=== PATIENT | female | born 1950 | race Caucasian/White ===

== ENCOUNTER → 2018-04-06 | Outpatient (CLI) | payer OTHER ==
[~2018-04-06] MED LIST: REGADENOSON 0.4 MG/5 ML SYR ONE
--- NOTE | 2018-04-06 18:15 | MYOCARDIAL PERFUSION SCAN ---
[facility] NUCLEAR STRESS TEST INDICATION FOR STUDY: Abnormal EKG. PROVIDER REQUESTING STUDY: Dr. Jonathon Walters. TECHNIQUE: For the stress portion of the study, 29.5 mCi of Technetium 99 m Cardiolite IV was injected at 12:17 pm on 04/06/2018. Thirty minutes following the injection, imaging of the heart was performed in multiple projections. For the rest portion of the study, 10.2 mCi of Technetium 99 m Cardiolite was injected at 09:50 am. One hour following the injection, imaging of the heart was performed in the same projections. HEMODYNAMIC DATA: The patient received 0.4 mg of Lexiscan intravenously. The resting heart rate of 59 beats per minute debra to a maximum heart rate of 78 beats per minute. This value represents 50% of the maximal age predicted heart rate. The resting blood pressure of 125/58 debra to a maximum blood pressure of 126/58. Of note, on the EKG report, there is a blood pressure of 50/58 that was recorded. This is actually a typing error. This was actually 105/58 mmHg. The heart rate and blood pressure response to pharmacologic stress was appropriate. The patient denied chest discomfort with administration of Lexiscan. Transient headache and GI upset was noted which resolved early in the post-pharmacologic stress recovery interval. EKG FINDINGS: The baseline EKG revealed sinus rhythm at 67 beats per minute. An age-determined septal infarction pattern cannot be excluded based on poor R-wave progression in lead V2. Diffuse nonspecific T-wave flattening was noted on the resting EKG. The stress EKG response was negative for inducible ischemia with no new ST segment changes. Occasional PVCs were noted with pharmacologic stress. The patient had no complaints in terms of the PVCs. Perfusion images: Stress SPECT images revealed a large perfusion defect encompassing the inferior and inferolateral myocardial nieto. The perfusion defect is severe at the apical level and moderate at the mid to basal levels. Resting SPECT images are unchanged with fixed perfusion defect encompassing the inferior and inferolateral nieto. Gated SPECT images reveal inferior and inferolateral hypokinesis with mildly reduced calculated left ventricular ejection fraction of 47% by gated SPECT. FINAL IMPRESSION: Abnormal pharmacologic nuclear stress testing revealing a fixed inferior, inferolateral perfusion defect consistent with infarction in this territory without superimposed ischemia. The inferior and inferolateral nieto were mildly hypokinetic with a mildly reduced left ventricular ejection fraction by gated SPECT of 47%. MTDD
== END | disposition home or self-care (01) ==
LOC: C.NUCL 08:57
PROVIDERS: ATTEND Internal Medicine Cardiovascular Disease
DX: R06.02 Shortness of breath (principal); I25.10 Atherosclerotic heart disease of native coronary artery without angina pectoris

== ENCOUNTER 2019-04-05 15:09 | Inpatient (IN) ==
--- NOTE | 2019-04-05 16:03 | XRay Report ---
XR chest 1V portable CLINICAL HISTORY: 68 years-old Female presenting with r/o infection. TECHNIQUE: Portable upright AP view of the chest was obtained. COMPARISON: None. FINDINGS: Atherosclerosis of the aortic arch. Cardiac silhouette enlarged. Pulmonary vascular prominence. Bronc hial wall cuffing. No focal opacity. Trace left pleural effusion. No pneumothorax. Scoliotic curvatur e of the spine. Degenerative changes of the glenohumeral joints. Upper abdomen normal. IMPRESSION: 1. Cardiac megaly with volume overload and congestive change. No stephani pulmonary edema at this time. 2. Trace left pleural effusion suspected. Electronically signed by: Mina Jackson M.D. 04/05/2019 4:02 PM
[2019-04-05 16:20] LABS: Basophils # (auto) 0.02 K/uL (0-0.2); Basophils % (auto) 0.3 %; Hematocrit (blood only) 35.5 % (37-47); Hemoglobin 10.8 g/dL (12.0-16.0); Immature Granulocytes # (auto) 0.01 K/uL (0.00-0.02); Immature Granulocytes % (auto) 0.2 %; Lymphocytes # (auto) 0.57 K/uL (1.2-3.4); Lymphocytes % (auto) 9.7 %; Mean Corpuscular Hgb Conc 30.4 g/dL (32-36); Mean Corpuscular Volume 76.7 fL (80-100); Mean Platelet Volume 9.2 fL (7.4-10.4); Monocytes # (auto) 0.33 K/uL (0.11-0.59); Monocytes % (auto) 5.6 %; Neutrophils # (auto) 4.93 K/uL (1.4-6.5); Neutrophils % (auto) 84.2 %; Platelet Count 261 K/uL (130-400); RDW Coefficient of Variation 20.2 % (11.5-14.5); RDW Standard Deviation 55.6 fL (36.4-46.3); Red Blood Count 4.63 M/uL (4.2-5.4); White Blood Count 5.86 K/uL (4.8-10.8)
--- NOTE | 2019-04-05 16:28 | Emergency Department Note ---
Entered by Renetta Escalera acting as a scribe for Jono Mosley MD History of Present Illness General Chief complaint: Illness Stated complaint: RETAINING FLUID Time Seen by Provider: 04/05/19 15:18 Source: patient History of Present Illness Provider complaint: 20 pound weight gain Onset (ago): week(s) 1 Location: abdomen, lower extremity and right Quality: + other (weight gain) Associated symptoms: + chest pain and + loss of appetite; no fever/chills and no shortness of breath The patient is a 68 year old female who presents to the Emergency Department with complaints of a 20 pound weight gain in the last week. The patient states that her weight gain is concentrated in her abdomen and right leg. The patient reports having a decreased appetite but denies fevers and chills. The patient states that she had a 3 minute episode of chest pain yesterday while doing laundry that went away after she took Nitroglycerin. The patient denies having shortness of breath with this episode. She states that she saw a GI doctor in February and had an endoscopy done that was negative. She reports a history of hypertension, cirrhosis, left leg BKA, a heart attack, COPD, and CHF. She states that she was referred to the ED by cardiology. Home Medications Home Medications Medication Instructions Recorded Confirmed Type aspirin 81 mg tablet,delayed 81 mg PO QAM 07/22/18 04/05/19 History release citalopram 40 mg tablet 40 mg PO HS 07/22/18 04/05/19 History gabapentin 800 mg tablet 800 mg PO TID tab 07/22/18 04/05/19 History omega 8-xjk-[id number]-fish oil 1,000 mg 1 cap PO QAM cap 07/22/18 04/05/19 History (120 mg-180 mg) capsule cyclobenzaprine 5 mg tablet 5 mg PO TID PRN 09/04/18 04/05/19 History Symbicort 2 puff INHALATION BID 03/01/19 04/05/19 History atorvastatin 80 mg PO HS 03/01/19 04/05/19 History cholecalciferol (vitamin D3) 1,000 unit PO QAM 03/01/19 04/05/19 History [Vitamin D3] ferrous gluconate 324 mg PO BID 03/01/19 04/05/19 History folic acid 1 mg PO QAM 03/01/19 04/05/19 History ipratropium-albuterol 3 ml INHALATION Q6 PRN 03/01/19 04/05/19 History metoprolol succinate 25 mg PO DAILY 03/01/19 04/05/19 History multivitamin 1 tab PO QAM 03/01/19 04/05/19 History omeprazole 40 mg PO QAM 03/01/19 04/05/19 History vitamin B complex 1 tab PO QAM 03/01/19 04/05/19 History losartan 25 mg tablet 12.5 mg PO QAM tab 03/17/19 04/05/19 History spironolactone 25 mg tablet 12.5 mg PO DAILY tab 03/17/19 04/05/19 History furosemide [Lasix] 40 mg PO BID 04/05/19 04/05/19 History Allergies Allergy/AdvReac Type Severity Reaction Status Date / Time Iodinated Contrast- Oral and Allergy Intermediate severe Verified 04/05/19 16:27 IV Dye vomiting Penicillins Allergy Intermediate hives/upset Verified 04/05/19 16:27 stomach/diarrhea oxycodone [From Percocet] AdvReac Intermediate vomiting Verified 04/05/19 16:27 Past Med/Surg History Medical History Anemia (Chronic) Asthma (Chronic) CHF (congestive heart failure) (Chronic) COPD (chronic obstructive pulmonary disease) (Chronic) inhaler daily/nebulizer prn 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) Endometriosis (Chronic) Failed back surgical syndrome (Chronic) HTN, goal to be determined (Chronic) Infection of left below knee amputation (Chronic) Anxiety Atrial fibrillation Cardiac murmur Chronic back pain Degenerative disc disease Depression Diabetes mellitus, type 2 taken off metformin 12/2018 GERD (gastroesophageal reflux disease) History of colon polyps Hyperlipidemia Hypertension Myocardial Infarction unknown when, noted after cardiac cath Osteoarthritis Peripheral neuropathy right leg from knee down; bilt hands Sleep apnea cpap, does not use as ordered Surgical History History of left-sided carotid endarterectomy (Chronic) History of right-sided carotid endarterectomy (Chronic) S/P cholecystectomy (Chronic) History of arthroscopy of left shoulder History of cardiac cath x1 2005 @ [facility] in [place]---follow with Dr. Walters History of colonoscopy History of dilatation and curettage x2 History of esophagogastroduodenoscopy (EGD) History of heart artery stent 10/2005 x1 History of laminectomy L3-L4 History of left below knee amputation vascular wound History of shoulder surgery left after arthroscopy History of tooth extraction all upper teeth; some on lower History of total abdominal hysterectomy and bilateral salpingo-oophorectomy Family History Father Family history of diabetes mellitus Other No family history of adverse response to anesthesia Social History Preferred Language: Bengali Communication Ability: Effective Visual Impairment: Limited Hearing Ability: Normal Beliefs That Will Affect Care: None Current Living Situation: Spouse Feels Safe at Home: Yes Smoking Status: Current every day smoker Tobacco Type: cigarettes Cigarettes Per Day: 4 a day Second Hand Exposure: Yes (parents/siblings/ smokes) Hx Alcohol Use: No Hx Substance Use: No Review of Systems See HPI for pertinent positives & negatives. and A total of 10 systems reviewed and were otherwise negative Physical Exam Vital Signs Vital Signs - 24 hr 04/05/19 15:13 04/05/19 17:10 04/05/19 18:16 Temperature 37.2 C Temperature Source Oral Sepsis Recent Fever Within 48 Hours No Sepsis New/Unexplained Change in Mental Status No Sepsis Action Taken by Nursing No Action Required Pulse Rate 70 Pulse Rate [Finger] 72 70 Respiratory Rate 18 20 22 Respiratory Depth Normal Blood Pressure 115/78 Blood Pressure [Right Arm] 98/57 L 118/53 L Blood Pressure Mean 90 Blood Pressure Mean [Right Arm] 70 74 Pulse Oximetry 94 96 97 Oxygen Delivery Method Room Air Room Air 04/05/19 18:49 Temperature Temperature Source Sepsis Recent Fever Within 48 Hours Sepsis New/Unexplained Change in Mental Status Sepsis Action Taken by Nursing Pulse Rate Pulse Rate [Finger] 73 Respiratory Rate 20 Respiratory Depth Blood Pressure Blood Pressure [Right Arm] 111/57 L Blood Pressure Mean Blood Pressure Mean [Right Arm] 75 Pulse Oximetry 97 Oxygen Delivery Method Room Air GENERAL: Patient is in no acute distress. HEENT: No acute trauma, normocephalic atraumatic, mucous membranes moist, no nasal congestion, no scleral icterus. NECK: No stridor, no adenopathy, no meningismus, trachea is midline. LUNGS: Crackles at both bases. Wheezing bilaterally. Equal breath sounds. No respiratory distress. HEART: 3/6 systolic murmur. Regular rate and rhythm. ABDOMEN: Distension noted. Firm to touch. Diffusely mildly tender. No obvious hernia. EXTREMITIES: Left BKA. Right lower extremity edema. Moderate in severity with s ome right lower leg erythema, no warmth. Full range of motion of all joints without pain. NEUROLOGIC: Oriented x 3, no acute motor or sensory deficits, no focal weakness. SKIN: No rash, no jaundice, no diaphoresis. Course 1521: The patient was evaluated by Dr. Terrell-Resident. 1548: The patient was evaluated in room C7. A history and physical were performed. 1708: Dr. Terrell updated the patient who verbalized agreement and understa nding of the treatment plan. 1714: Dr. Terrell discussed the patient's case with Tabby Padilla who will evaluate the patient for further management. Consultations Consultation #1: Tabby Arguello Time: 17:14 Medical Decision Making Differential Diagnosis Differentials include ascites, liver or renal failure, spontaneous bacterial peritonitis, CHF, anemia, electrolyte imbalance, DVT, and fluid overload. Medical Records Attestation: I reviewed the patient's medical records. Home Medications Current Medication List: was personally reviewed by me Laboratory Data Attestation: I reviewed the patient's lab results. Result diagrams: 04/05/19 16:12 04/05/19 16:12 Lab Results 04/05/19 04/05/19 04/05/19 Range/Units 15:47 16:12 16:12 WBC 5.86 (4.8-10.8) K/uL RBC 4.63 (4.2-5.4) M/uL Hgb 10.8 L (12.0-16.0) g/dL Hct 35.5 L (37-47) % MCV 76.7 L (80-100) fL MCH 23.3 L (25-34) pg MCHC 30.4 L (32-36) g/dL RDW Std Deviation 55.6 H (36.4-46.3) fL RDW Coeff of Tiburcio 20.2 H (11.5-14.5) % Plt Count 261 (130-400) K/uL MPV 9.2 (7.4-10.4) fL Immature Gran % (Auto) 0.2 % Neut % (Auto) 84.2 % Lymph % (Auto) 9.7 % [place] % (Auto) 5.6 % Eos % (Auto) 0.0 % Baso % (Auto) 0.3 % Immature Gran # (Auto) 0.01 (0.00-0.02) K/uL Neut # (Auto) 4.93 (1.4-6.5) K/uL Lymph # (Auto) 0.57 L (1.2-3.4) K/uL [place] # (Auto) 0.33 (0.11-0.59) K/uL Eos # (Auto) 0.00 (0-0.5) K/uL Baso # (Auto) 0.02 (0-0.2) K/uL Polychromasia 1+ Anisocytosis Present PT 12.2 H (9.0-12.0) Seconds INR 1.2 H (0.9-1.1) APTT 26.8 (21.0-31.0) Seconds PTT Ratio 1.0 Sodium (136-145) mmol/L Potassium (3.5-5.1) mmol/L Chloride (98-107) mmol/L Carbon Dioxide (21-32) mmol/L Anion Gap (3-11) BUN (7-18) mg/dl Creatinine (0.6-1.2) mg/dl Est Cr Clr Drug Dosing Est GFR ( Amer) Est GFR (Non-Af Amer) BUN/Creatinine Ratio (10-20) Glucose (70-99) mg/dl Calcium (8.5-10.1) mg/dl Total Bilirubin (0.2-1) mg/dl AST (15-37) U/L ALT (12-78) U/L Alkaline Phosphatase (45-117) U/L Troponin I (0-0.045) ng/ml Total Protein (6.4-8.2) gm/dl Albumin (3.4-5.0) gm/dl Globulin (2.5-4.0) gm/dl Albumin/Globulin Ratio (0.9-2) 05/20/19 Range/Units 16:12 WBC (4.8-10.8) K/uL RBC (4.2-5.4) M/uL Hgb (12.0-16.0) g/dL Hct (37-47) % MCV (80-100) fL MCH (25-34) pg MCHC (32-36) g/dL RDW Std Deviation (36.4-46.3) fL RDW Coeff of Tiburcio (11.5-14.5) % Plt Count (130-400) K/uL MPV (7.4-10.4) fL Immature Gran % (Auto) % Neut % (Auto) % Lymph % (Auto) % [place] % (Auto) % Eos % (Auto) % Baso % (Auto) % Immature Gran # (Auto) (0.00-0.02) K/uL Neut # (Auto) (1.4-6.5) K/uL Lymph # (Auto) (1.2-3.4) K/uL [place] # (Auto) (0.11-0.59) K/uL Eos # (Auto) (0-0.5) K/uL Baso # (Auto) (0-0.2) K/uL Polychromasia Anisocytosis PT (9.0-12.0) Seconds INR (0.9-1.1) APTT (21.0-31.0) Seconds PTT Ratio Sodium 137 (136-145) mmol/L Potassium 3.7 (3.5-5.1) mmol/L Chloride 97 L (98-107) mmol/L Carbon Dioxide 32 (21-32) mmol/L Anion Gap 8.0 (3-11) BUN 27 H (7-18) mg/dl Creatinine 1.35 H (0.6-1.2) mg/dl Est Cr Clr Drug Dosing Not Reportable Est GFR ( Amer) 46.6 Est GFR (Non-Af Amer) 40.2 BUN/Creatinine Ratio 20.0 (10-20) Glucose 103 H (70-99) mg/dl Calcium 8.5 (8.5-10.1) mg/dl Total Bilirubin 0.4 (0.2-1) mg/dl AST 17 (15-37) U/L ALT 15 (12-78) U/L Alkaline Phosphatase 151 H (45-117) U/L Troponin I 0.062 H* (0-0.045) ng/ml Total Protein 6.7 (6.4-8.2) gm/dl Albumin 2.3 L (3.4-5.0) gm/dl Globulin 4.4 H (2.5-4.0) gm/dl Albumin/Globulin Ratio 0.5 L (0.9-2) Imaging Data Radiologist's Impression: Radiology results as stated below per my review and the radiologist's interpretation: XR chest 1V portable CLINICAL HISTORY: 68 years-old Female presenting with r/o infection. TECHNIQUE: Portable upright AP view of the chest was obtained. COMPARISON: None. FINDINGS: Atherosclerosis of the aortic arch. Cardiac silhouette enlarged. Pulmonary vascular prominence. Bronchial wall cuffing. No focal opacity. Trace left pleural effusion. No pneumothorax. Scoliotic curvature of the spine. Degenerative changes of the glenohumeral joints. Upper abdomen normal. IMPRESSION: 1. Cardiac megaly with volume overload and congestive change. No stephani pulmonary edema at this time. 2. Trace left pleural effusion suspected. Electronically signed by: Mina Jackson M.D. 04/05/2019 4:02 PM [address] AND PELVIS CT WITHOUT CONTRAST CT DOSE: 1452.00 mGy.cm HISTORY: Acute generalized abdominal pain with distention and cirrhotic liver disease. abdo distended tender hx cirrhosis, eval ascites TECHNIQUE: Multiaxial CT images of the abdomen and pelvis were performed without contrast. A dose lowering technique was utilized adhering to the principles of ALARA. COMPARISON STUDY: None. FINDINGS: Small left pleural effusion. Minimal dependent subsegmental bibasilar atelectasis. There is no pneumatosis or pneumoperitoneum. Moderate enlargement of the imaged inferior cardiac chambers. Coronary arterial calcifications with extensive calcification of the mitral valve. Small pericardial effusion. Moderate to large abdominal pelvic ascites. Cirrhotic morphology of the liver. No focal hepatic mass lesions or intrahepatic biliary ductal dilation identified. Prior cholecystectomy. Spleen is mildly enlarged, 13.9 cm. Mild generalized pancreatic atrophy. Evaluation of the solid abdominal organs is limited without the use of IV contrast. Adrenal glands are unremarkable. Hypodense lesions of the bilateral kidneys are noted measuring up to 4.9 cm on the right suggestive of cysts. 3 mm nonobstructing calculus of the interpolar left kidney. There are 2 2 mm calcifications noted about the interpolar right kidney suggestive of nonobstructing calculi. No ureteral calculi or obstructive uropathy. Uterus is likely surgically absent. Mild nonspecific wall thickening about the urinary bladder. Extensive calcification of the abdominal aorta and iliac arteries. No adenopathy by CT size criteria. Moderate sized duodenal diverticulum. No bowel obstruction or focal bowel wall thickening. Colonic diverticulosis without definitive evidence of acute diverticulitis. Evaluation for subtle inflammation however is limited secondary to the ascites and diffuse mesenteric edema. Visualized appendix is unremarkable. Layering hyperdense material is noted about the cecum. Diffuse body wall edema. Small subxiphoid fat and fluid filled hernia, diastases 2.4 cm. Severe multilevel facet arthrosis with intervertebral disc space narrowing. Tho racolumbar sigmoidal scoliosis. IMPRESSION: 1. Cirrhotic liver disease with moderate to large volume of abdominal pelvic ascites, anasarca, small left pleural effusion and small pericardial effusion. 2. Colonic diverticulosis without definitive evidence of acute diverticulitis. 3. No bowel obstruction or focal bowel wall thickening. 4. Cardiomegaly. 5. Additional findings as above. Electronically signed by: Trever Salgado M.D. 04/05/2019 4:50 PM ECG Data Attestation: I personally reviewed and interpreted this ECG as follows: Indication: chest pain Rate (beats per minute): 62 Rhythm: sinus rhythm Findings: + other (potential old anterior lateral infarct) and + PVC; no ST elevation Blood Pressure Blood Pressure Findings: Normal blood pressure MDM Narrative There is no leukocytosis. The patient is anemic, the number is not in the critical range. The patient has a normal platelet count. INR is mildly elevated at 1.2, PTT is pending. Renal panel testing shows some renal insufficiency/dehydration with a creatinine 1.35. No significant electrolyte abnormality requiring correction. No hepatitis. EKG shows a sinus rhythm with some older findings, no acute ischemia noted. Cardiac enzyme testing x1 is elevated, this is concerning for cardiac injury or strain. Chest film does not show pneumonia or CHF. Abdominal and pelvis CT shows significant ascites. The patient presents with abdominal distention. She did have a bout of chest pain yesterday for which nitroglycerin provided relief. Work-up today shows ascites and a troponin elevation. Further care in the hospital is warranted given these findings. The patient likely will require a paracentesis at some point. The troponin will need to be trended. Case management has been involved, the patient is aware of all her findings and results. The on-call hospitalist was consulted. Impression & Plan Precordial chest pain, Elevated troponin, Ascites Discharge Plan Visit Data Chief Complaint: Illness Stated Complaint: RETAINING FLUID ED Provider: Jono Mosley ED Midlevel Provider: Aleks Terrell Discharge Problem: Precordial chest pain, Elevated troponin, Ascites Patient Disposition: Being Evaluated by Hospitalist Forms Stand Alone Forms: [facility] Prescriptions Prescriptions: No Action spironolactone 25 mg tablet 12.5 mg PO DAILY RF: 0 citalopram [Celexa] 40 mg tablet 40 mg PO HS RF: 0 aspirin [Aspir-81] 81 mg tablet,delayed release (DR/EC) 81 mg PO QAM RF: 0 gabapentin 800 mg tablet 800 mg PO TID RF: 0 omega 8-wvn-ygk-fish oil [Fish Oil] 1,000 mg (120 mg-180 mg) capsule 1 cap PO QAM RF: 0 cyclobenzaprine 5 mg tablet 5 mg PO TID PRN (Reason: Muscle Spasm) RF: 0 furosemide [Lasix] 40 mg tablet 40 mg PO BID RF: 0 atorvastatin 80 mg Tablet 80 mg PO HS RF: 0 ipratropium-albuterol 0.5 mg-3 mg(2.5 mg base)/3 mL Solution For Nebulization 3 ml INHALATION Q6 PRN (Reason: Shortness Of Breath) RF: 0 omeprazole 40 mg Capsule,Delayed Release(Dr/Ec) 40 mg PO QAM RF: 0 metoprolol succinate 25 mg Tablet Extended Release 24 Hr 25 mg PO DAILY RF: 0 ferrous gluconate 324 mg (38 mg iron) Tablet 324 mg PO BID RF: 0 Symbicort 160-4.5 mcg/actuation Hfa Aerosol Inhaler 2 puff INHALATION BID RF: 0 multivitamin Tablet 1 tab PO QAM RF: 0 vitamin B complex Tablet 1 tab PO QAM RF: 0 folic acid 1 mg Tablet 1 mg PO QAM RF: 0 cholecalciferol (vitamin D3) [Vitamin D3] 1,000 unit Tablet 1,000 unit PO QAM RF: 0 losartan 25 mg tablet 12.5 mg PO QAM RF: 0 Referrals Referrals: Yazan Araiza DO [Primary Care Provider] - Discharge Problem: Ascites Qualifiers: Ascites type: other type Qualified Code(s): R18.8 - Other ascites The scribe's documentation has been prepared under my direction and personally reviewed by me in its entirety. I confirm that the note above accurately reflects all work, treatment, procedures, and medical decision making performed by me.
[2019-04-05 16:29] LABS: INR 1.2 (0.9-1.1); Prothrombin Time 12.2 Seconds (9.0-12.0)
[2019-04-05 16:43] LABS: Anisocytosis Present; Polychromasia 1+
[2019-04-05 16:50] LABS: Alanine Aminotransferase 15 U/L (12-78); Albumin Level 2.3 gm/dl (3.4-5.0); Aspartate Aminotransferase 17 U/L (15-37); Blood Urea Nitrogen 27 mg/dl (7-18); Calcium 8.5 mg/dl (8.5-10.1); Carbon Dioxide 32 mmol/L (21-32); Chloride 97 mmol/L (98-107); Est GFR (African American) 46.6; Est GFR (Non-African American) 40.2; Glucose 103 mg/dl (70-99); Potassium 3.7 mmol/L (3.5-5.1); Sodium 137 mmol/L (136-145)
--- NOTE | 2019-04-05 16:52 | CT Scan Report ---
ABDOMEN AND PELVIS CT WITHOUT CONTRAST CT DOSE: 1452.00 mGy.cm HISTORY: Acute generalized abdominal pain with distention and cirrhotic liver disease. abdo distende d tender hx cirrhosis, eval ascites TECHNIQUE: Multiaxial CT images of the abdomen and pelvis were performed without contrast. A dose lo wering technique was utilized adhering to the principles of ALARA. COMPARISON STUDY: None. FINDINGS: Small left pleural effusion. Minimal dependent subsegmental bibasilar atelectasis. There is no pneuma tosis or pneumoperitoneum. Moderate enlargement of the imaged inferior cardiac chambers. Coronary art erial calcifications with extensive calcification of the mitral valve. Small pericardial effusion. Moderate to large abdominal pelvic ascites. Cirrhotic morphology of the liver. No focal hepatic mass lesions or intrahepatic biliary ductal dilation identified. Prior cholecystectomy. Spleen is mildly e nlarged, 13.9 cm. Mild generalized pancreatic atrophy. Evaluation of the solid abdominal organs is li mited without the use of IV contrast. Adrenal glands are unremarkable. Hypodense lesions of the bilateral kidneys are noted measuring up to 4.9 cm on the right suggestive o f cysts. 3 mm nonobstructing calculus of the interpolar left kidney. There are 2 2 mm calcifications noted about the interpolar right kidney suggestive of nonobstructing calculi. No ureteral calculi or obstructive uropathy. Uterus is likely surgically absent. Mild nonspecific wall thickening about the urinary bladder. Extensive calcification of the abdominal aorta and iliac arteries. No adenopathy by CT size criteria. Moderate sized duodenal diverticulum. No bowel obstruction or focal bowel wall thickening. Colonic di verticulosis without definitive evidence of acute diverticulitis. Evaluation for subtle inflammation however is limited secondary to the ascites and diffuse mesenteric edema. Visualized appendix is unre markable. Layering hyperdense material is noted about the cecum. Diffuse body wall edema. Small subxi phoid fat and fluid filled hernia, diastases 2.4 cm. Severe multilevel facet arthrosis with intervert ebral disc space narrowing. Thoracolumbar sigmoidal scoliosis. IMPRESSION: 1. Cirrhotic liver disease with moderate to large volume of abdominal pelvic ascites, anasarca, small left pleural effusion and small pericardial effusion. 2. Colonic diverticulosis without definitive evidence of acute diverticulitis. 3. No bowel obstruction or focal bowel wall thickening. 4. Cardiomegaly. 5. Additional findings as above. Electronically signed by: Trever Salgado M.D. 04/05/2019 4:50 PM
[2019-04-05 16:58] LABS: Albumin Globulin Ratio 0.5 (0.9-2); Alkaline Phosphatase 151 U/L (45-117); Bilirubin,Total 0.4 mg/dl (0.2-1); Globulin 4.4 gm/dl (2.5-4.0); Total Protein 6.7 gm/dl (6.4-8.2); Troponin I 0.062 ng/ml (0-0.045)
--- NOTE | 2019-04-05 17:20 | Emergency Department Note ---
ED Visit Note I, Aleks Terrell, PGY-2, saw and assisted in the care of this patient with Dr. Mosley. . Resident Activity Tracking Resident Involvement: Resident Care Provided Care Provided: Adult ED : Ascites Qualifiers: Ascites type: other type Qualified Code(s): R18.8 - Other ascites
[2019-04-05 17:36] LABS: Partial Thromboplastin Time 26.8 Seconds (21.0-31.0)
--- NOTE | 2019-04-05 20:22 | History & Physical Report ---
Date of Service April 05, 2019 Assessment & Plan (1) Chronic combined systolic and diastolic CHF (congestive heart failure): (2) Ascites: -Admit to telemetry -Patient presenting by referral of outpatient cardiology office for evaluation of ongoing volume overload despite up titration of diuretics -Patient has been following closely as an outpatient with GI and cardiology for evaluation/management of this -Patient will require diagnostic and therapeutic paracentesis however need to ensure cardiac stabilization first as described below -Low suspicion for SBP, afebrile/no leukocytosis -will start Lasix 40 mg IV twice daily, continue home dose of spironolactone 12.5 mg daily -Monroe placed for strict I's and O's, daily standing weights, low Na+ diet, 1500 cc fluid restriction -Noted that patient had EGD 03/11/19 that did not show any evidence of esophageal varices, residual food was found in stomach so visualization was poor -GI consult, input appreciated (3) Chest pain: (4) Elevated troponin: (5) CAD (coronary artery disease): -Patient reporting two brief episodes of chest pain yesterday that were very similar to her anginal equivalent in the past prior to receiving cardiac stent -Chest pain was resolved with use of sublingual nitroglycerin -In the ED, found to have mildly elevated troponin at 0.062, EKG without acute ischemic changes -Troponin elevation likely secondary to demand ischemia from significant volume overload however given patient's history and several underlying risk factors, will place on IV heparin for now -Continue to cycle cardiac enzymes, check resting echo -Continue aspirin, statin, beta-alma; will hold ARB for now secondary to borderline low BPs and initiation of IV diuresis -Cardiology consult, case discussed with Dr. Walters (6) CKD (chronic kidney disease), stage III: -Creatinine at baseline -Monitor renal functions closely with IV diuresis (7) DM type 2 (diabetes mellitus, type 2): -Hgb A1c 6.1 12/2018 -Currently not on any medical therapy -Monitor BSG's, provide NovoLog if needed (8) COPD (chronic obstructive pulmonary disease): -Appears stable, no signs of acute exacerbation -Continue home inhalers (9) DVT prophylaxis: -On IV heparin as above History of Present Illness Chief Complaint: Abdominal distention/fluid accumulation Primary Care Provider: Yazan Araiza DO 68-year-old female who presents the ED for evaluation of abdominal distention and fluid accumulation. Over the past couple of months, patient has been being followed closely by GI and cardiology for management of ascites. Attempts have been made to increase outpatient diuresis including up titration of Lasix and addition of spironolactone. Patient presented to the cardiology office today was found to be significantly volume overloaded despite these efforts. She was referred to the ED for further evaluation/management. Patient reports that yesterday she developed 2 brief episodes of chest pain. She describes the discomfort is located over the left side of her chest, " right over my heart". She describes the pain as a squeezing/applying sensation. No associated shortn ess of breath, lightheadedness, dizziness, diaphoresis, nausea. She did take 1 sublingual nitroglycerin with resolution of the discomfort after about 30 minutes. She reports this pain as being very similar as to what she has had in the past prior to having cardiac stents placed. She reports she was doing laundry at the time of this. She has chronic exertional shortness of breath which has been worsening. She denies orthopnea and lower extremity edema. She reports some lightheadedness/dizziness with position changes however denies any syncopal event. No nausea, vomiting, diarrhea. She denies other recent illnesses, fevers, chills. No urinary symptoms. In the ED, troponin was found to be 0.062, EKG does not show any ischemic changes. CT ABD/pelvis demonstrates moderate/large volume ascites with associated anasarca. Allergies Allergy/AdvReac Type Severity Reaction Status Date / Time Iodinated Contrast- Oral and Allergy Intermediate severe Verified 04/05/19 16:27 IV Dye vomiting Penicillins Allergy Intermediate hives/upset Verified 04/05/19 16:27 stomach/diarrhea oxycodone [From Percocet] AdvReac Intermediate vomiting Verified 04/05/19 16:27 Home Medications Home Medications Medication Instructions Recorded Confirmed Type aspirin 81 mg tablet,delayed 81 mg PO QAM 07/22/18 04/05/19 History release citalopram 40 mg tablet 40 mg PO HS 07/22/18 04/05/19 History gabapentin 800 mg tablet 800 mg PO TID tab 07/22/18 04/05/19 History omega 7-znc-gwr-fish oil 1,000 mg 1 cap PO QAM cap 07/22/18 04/05/19 History (120 mg-180 mg) capsule cyclobenzaprine 5 mg tablet 5 mg PO TID PRN 09/04/18 04/05/19 History Symbicort 2 puff INHALATION BID 03/01/19 04/05/19 History atorvastatin 80 mg PO HS 03/01/19 04/05/19 History ferrous gluconate 324 mg PO TID 03/01/19 04/05/19 History folic acid 1 mg PO QAM 03/01/19 04/05/19 History ipratropium-albuterol 3 ml INHALATION Q6 PRN 03/01/19 04/05/19 History metoprolol succinate 25 mg PO DAILY 03/01/19 04/05/19 History multivitamin 1 tab PO QAM 03/01/19 04/05/19 History omeprazole 40 mg PO QAM 03/01/19 04/05/19 History vitamin B complex 1 tab PO QAM 03/01/19 04/05/19 History losartan 25 mg tablet 12.5 mg PO QAM tab 03/17/19 04/05/19 History spironolactone 25 mg tablet 12.5 mg PO DAILY tab 03/17/19 04/05/19 History furosemide [Lasix] 40 mg PO BID 04/05/19 04/05/19 History magnesium oxide 400 mg PO DAILY 04/05/19 04/05/19 History nitroglycerin 0.4 mg SUBLINGUAL UD 04/05/19 04/05/19 History tiotropium bromide [Spiriva 2 inh INHALATION DAILY 04/05/19 04/05/19 History Respimat] Past Med/Surg History Medical History History of left below knee amputation (Chronic) SARANYA (iron deficiency anemia) (Chronic) Valvular heart disease (Chronic) Moderate aortic valve stenosis, moderate mitral regurgitation, mild tricuspid regurgitation Ischemic cardiomyopathy (Chronic) Chronic combined systolic and diastolic CHF (congestive heart failure) (Chronic) EF 40 to 44%, grade 2 diastolic dysfunction CAD (coronary artery disease) (Chronic) 2004 -PCI to unknown vessel PAD (peripheral artery disease) (Chronic) COPD (chronic obstructive pulmonary disease) (Chronic) CKD (chronic kidney disease), stage III (Chronic) Diabetic peripheral neuropathy (Chronic) DM type 2 (diabetes mellitus, type 2) (Chronic) Charcot foot due to diabetes mellitus (Chronic) Surgical History History of bilateral carotid endarterectomy (Chronic) History of cholecystectomy (Chronic) Family History Father Family history of diabetes mellitus Sister Breast cancer Social History Preferred Language: Frisian Communication Ability: Effective Visual Impairment: Limited Hearing Ability: Normal New Account Interviewer Required: No Beliefs That Will Affect Care: None Current Living Situation: Spouse Other Information That Helps Us Care for You: No Feels Safe at Home: Yes Safety Concerns: Feels Safe At This Time Smoking Status: Current every day smoker Tobacco Type: cigarettes Cigarettes Per Day: 3 Do You Dip or Chew Tobacco: No Second Hand Exposure: Yes Hx Alcohol Use: No Hx Substance Use: No Review of Systems Review of Systems: ROS per HPI, all other systems reviewed and negative Physical Exam Constitutional: WD/WN, vitals as above Eyes: PERRL, conjunctivae normal, anicteric sclerae ENMT: external ear and nose normal, oropharynx normal Respiratory: normal respiratory effort; no respiratory distress Auscultation: + diminished lung sounds Cardiovascular: Rate/Rhythm: regular rate and regular rhythm Vessels: normal peripheral pulses Extremities: no edema Gastrointestinal (Abdomen): Inspection/Auscultation: normal bowel sounds Percussion/Palpation: + abdomen tender (Generalized), abdomen soft and + ascites (Significant/anasarca); no hepatosplenomegaly Musculoskeletal: no cyanosis or clubbing, extremities motor strength 5/5 Extremities: + amputation noted (Left BKA) Skin: no rashes, warm and dry ~ 0.5cm wound noted to left stump, no significant drainage or erythema noted Neurologic: PERRL, EOMI, accommodation nl, no face palsy, no dysarthria Psychiatric: A+Ox3, euthymic affect Results & Data Vital Signs (Past 12 Hours) Vital Signs Temp Pulse Pulse Resp BP BP Pulse Ox 04/05/19 18:49 73 20 111/57 L 97 04/05/19 18:16 70 22 118/53 L 97 04/05/19 17:10 72 20 98/57 L 96 04/05/19 15:13 37.2 C 70 18 115/78 94 Laboratory Results Short CBC 04/05/19 Range/Units 16:12 WBC 5.86 (4.8-10.8) K/uL Hgb 10.8 L (12.0-16.0) g/dL Hct 35.5 L (37-47) % Plt Count 261 (130-400) K/uL BMP 04/05/19 16:12 Sodium 137 Potassium 3.7 Chloride 97 L Carbon Dioxide 32 BUN 27 H Creatinine 1.35 H Glucose 103 H Calcium 8.5 Cardiac Enzymes 04/05/19 Range/Units 16:12 Troponin I 0.062 H* (0-0.045) ng/ml Liver Function 04/05/19 Range/Units 16:12 Total Bilirubin 0.4 (0.2-1) mg/dl AST 17 (15-37) U/L ALT 15 (12-78) U/L Alkaline Phosphatase 151 H (45-117) U/L Albumin 2.3 L (3.4-5.0) gm/dl Diagnostic Findings CT ABD/PELVIS IMPRESSION: 1. Cirrhotic liver disease with moderate to large volume of abdominal pelvic ascites, anasarca, small left pleural effusion and small pericardial effusion. 2. Colonic diverticulosis without definitive evidence of acute diverticulitis. 3. No bowel obstruction or focal bowel wall thickening. 4. Cardiomegaly. 5. Additional findings as above. CXR IMPRESSION: 1. Cardiac megaly with volume overload and congestive change. No stephani pulmonary edema at this time. 2. Trace left pleural effusion suspected. Code Status & VTE Plan Code Status Patient is a DNR as per my discussion with her. VTE Prophylaxis Plan VTE Prophylaxis will be ordered: Yes Supervising Physician Co-Signing Physician Notes I have seen and examined the patient and have discussed the case with the provider above. I agree with the assessment and plan as stated with the following exceptions. The patient denies any chest pain and is minimizing these chest pain episodes yesterday. However, she did report this is consistent with her index angina and in the setting of other risk factors including active smoking and known history of cardiac and peripheral vascular disease, I believe the heparin drip is appropriate at this time to rule out an ACS. The main issue bringing her to the hospitalist expedite diuresis. Will aggressively pursue this tomorrow morning pending clinical improvement and rule out ACS overnight. Appreciate cardiology thoughts on this. Plan will be to pursue a diagnostic and therapeutic paracentesis as well as continue with IV diuretics and spironolactone in the setting of cirrhosis. Fluid restriction and daily standing weights as well as sodium restrict diet will be helpful for reducing anasarca in addition to the diuretics. ALEXY lynne recommended. On physical exam she is comfortable mentating normally. She has a 3/6 DOMINIQUE murmur across precordium that is known to her. Lungs are clear to auscultation. Clear 2+ pitting edema present in lower extremities and up into lower abdominal wall. Noted below the knee amputation on the left side. Abdominal exam reveals presence of fluid wave consistent with ascites and large protuberant abdomen with multiple skin folds. She is able to get up on her own and sit to the side of the bed from a strength standpoint. No gross focal neurologic deficits are seen. Continue with plan as above. Will reassess and perform a nonurgent diagnostic/therapeutic paracentesis when able. DO Matt
[2019-04-05] MEDS ORDERED: Heparin IV Standard *NO* Bolus IV SCH (20:34)
[2019-04-05] MEDS ORDERED: FUROSEMIDE 40 MG/4 ML VIAL IV SCH (20:34)
[2019-04-05] MEDS: FERROUS GLUCONATE 324 MG TAB PO SCH (21:36)
[2019-04-05] MEDS: BUDESONIDE/FORMOTEROL FUMARATE 160/4.5 60 PUFFS/INHALER INH SCH (21:36)
[2019-04-05] MEDS: ATORVASTATIN 40 MG TAB PO SCH (21:37)
[2019-04-05] MEDS: GABAPENTIN 800 MG TAB PO SCH (21:37)
[2019-04-05] MEDS: FUROSEMIDE 40 MG in SYRINGE 0 ML IV SCH (21:37)
[2019-04-05] MEDS: CITALOPRAM 40 MG TAB PO SCH (21:37)
[2019-04-05] MEDS ORDERED: Heparin Adult STANDARD Wt-Based Dextrose 5% 25,000 units/500 mL IV SCH (21:45)
[2019-04-06 04:33] LABS: Albumin Level 2.2 gm/dl (3.4-5.0); BUN Creatinine Ratio 20.6 (10-20); Calcium 8.3 mg/dl (8.5-10.1); Creatinine Clr Calc Pharmacy 38.7 ml/min; Est GFR (Non-African American) 38.8; Potassium 3.9 mmol/L (3.5-5.1)
[2019-04-06 04:43] LABS: Albumin Globulin Ratio 0.5 (0.9-2); Bilirubin,Total 0.3 mg/dl (0.2-1); Globulin 4.3 gm/dl (2.5-4.0); Total Protein 6.5 gm/dl (6.4-8.2); Troponin I 0.064 ng/ml (0-0.045)
[2019-04-06 06:30] LABS: Partial Thromboplastin Ratio 1.4; Partial Thromboplastin Time 37.3 Seconds (21.0-31.0)
[2019-04-06] MEDS ORDERED: HEPARIN IV BOLUS 5,000 UNITS in SYRINGE 0 ML IV ONE (07:00)
[2019-04-06] MEDS: GABAPENTIN 800 MG TAB PO SCH ×3 (08:39→20:52)
[2019-04-06] MEDS: FUROSEMIDE 40 MG in SYRINGE 0 ML IV SCH ×2 (08:39→17:42)
[2019-04-06] MEDS: MULTIVITAMIN TAB PO SCH (08:40)
[2019-04-06] MEDS: FOLIC ACID 1 MG TAB PO SCH (08:40)
[2019-04-06] MEDS: FERROUS GLUCONATE 324 MG TAB PO SCH ×3 (08:40→20:53)
[2019-04-06] MEDS: METOPROLOL SUCC 25MG EXT REL TAB PO SCH (08:40)
[2019-04-06] MEDS: MAGNESIUM OXIDE 400 MG TAB PO SCH (08:40)
[2019-04-06] MEDS: BUDESONIDE/FORMOTEROL FUMARATE 160/4.5 60 PUFFS/INHALER INH SCH ×2 (08:40→20:51)
[2019-04-06] MEDS: VITAMIN B COMPLEX TAB PO SCH (08:41)
[2019-04-06] MEDS: PANTOprazole 40 MG TAB PO SCH (08:41)
[2019-04-06] MEDS: ASPIRIN 81 MG ECTAB PO SCH (08:41)
--- NOTE | 2019-04-06 08:55 | Hospitalist Progress Note ---
Date of Service April 06, 2019 Assessment & Plan (1) Cirrhosis: Gastroenterology consulted. Paracentesis set up for this afternoon. Preprocedure albumin ordered. Cont diuretic therapy for decompensated cirrhosis. (2) Chronic combined systolic and diastolic CHF (congestive heart failure): Lasix 40mg IV BID, Monroe in place to track output. Cont low sodium diet, fluid restriction in setting of anasarca. Daily standing weights. (3) Ascites: Lasix/spironolactone. Initial diagnostic/therapeutic paracentesis scheduled for this afternoon. This will help to elucidate the origin of the ascites-cardiac vs hepatic, as GI outpatient provider thought imaging was not consistent with cirrhosis. Cont fluids restriction efforts as above. (4) Chest pain: h/o CAD and PAD and stated that this was her index pain which has since resolved. Was on heparin drip overnight, but this was stopped. Likely anginal pain, no ACS. Cont medical management of disease. (5) Elevated troponin: Flat without rise when trended overnight. Likely related to demand ischemia in the setting of anasarca and congestion. (6) Pericardial effusion: no evidence of tamponade on echo. (7) CAD (coronary artery disease): cont medical management for presumed stable disease. (8) CKD (chronic kidney disease), stage III: -Creatinine at baseline -Monitor renal functions closely with IV diuresis (9) DM type 2 (diabetes mellitus, type 2): -Hgb A1c 6.1 12/2018 -Currently not on any medical therapy -Monitor BSG's, provide NovoLog if needed (10) COPD (chronic obstructive pulmonary disease): -Appears stable, no signs of acute exacerbation -Continue home inhalers (11) DVT prophylaxis: Lovenox DNR/DNI Dispo-likely hospitalized for several days to achieve euvolemia. Melissa Gutierrez DO [facility] Hospitalist Subjective Very sleepy, frequently falling asleep during the interview. Denies any new issues and has had a good response to the Lasix IV but doesn't feel any improvement in her swelling yet. +abdominal pain on the left side related to swelling. denies any further episodes of chest pain. Review of Systems Review of Systems: All systems reviewed & are unremarkable except as noted in HPI & below Physical Exam Physical Exam: CONSTITUTIONAL: WNWD, vitals as above, generally well- appearing, sleepy but easily oriented. EYES: normal conjuctivae, no scleral icterus ENT: MMM RESPIRATORY: wheezing throughout all lung veras, normal respiratory effort CARDIOVASCULAR: regular rate and rhythm, 3/6 DOMINIQUE across precordium, no gallops or rubs, no JVD, 3+ pitting edema in bilateral LEs up to abdomen. GASTROINTESTINAL: normal bowel sounds, soft, TTP in LLQ at transition point where swelling starts at the body wall. Nondistended. MUSCULOSKELETAL: strength 5/5 throughout, L BKA present, head is normocephalic and atraumatic SKIN: warm and dry NEUROLOGIC: CN 2-12 grossly intact, normal cognition, no gross focal deficits. PSYCHIATRIC: alert cooperative and oriented to person, place and time. Results & Data Vital Signs (Past 12 Hours) Vital Signs Temp Pulse Pulse Resp BP BP Pulse Ox 04/06/19 07:42 37.0 C 69 18 115/69 98 04/06/19 03:30 37.2 C 65 19 108/64 93 04/06/19 00:10 65 04/05/19 23:23 36.7 C 72 22 124/69 97 Laboratory Results Short CBC 04/05/19 Range/Units 16:12 WBC 5.86 (4.8-10.8) K/uL Hgb 10.8 L (12.0-16.0) g/dL Hct 35.5 L (37-47) % Plt Count 261 (130-400) K/uL BMP 04/05/19 04/06/19 16:12 04:00 Sodium 137 138 Potassium 3.7 3.9 Chloride 97 L 98 Carbon Dioxide 32 38 H BUN 27 H 29 H Creatinine 1.35 H 1.39 H Glucose 103 H 125 H Calcium 8.5 8.3 L Cardiac Enzymes 04/05/19 04/05/19 04/06/19 Range/Units 16:12 22:00 04:00 Troponin I 0.062 H* 0.070 H* 0.064 H* (0-0.045) ng/ml Liver Function 04/05/19 04/06/19 Range/Units 16:12 04:00 Total Bilirubin 0.4 0.3 (0.2-1) mg/dl AST 17 14 L (15-37) U/L ALT 15 15 (12-78) U/L Alkaline Phosphatase 151 H 145 H (45-117) U/L Albumin 2.3 L 2.2 L (3.4-5.0) gm/dl Medications Administered Current Inpatient Medications Aspirin (Ecotrin Ectab) 81 mg PO QAM [facility] Stop: 05/06/19 08:59 Last Admin: 04/06/19 08:41 Dose: 81 mg Documented by: Atorvastatin Calcium (Lipitor) 80 mg PO [facility] Stop: 05/05/19 20:59 Last Admin: 04/05/19 21:37 Dose: 80 mg Documented by: Budesonide/Formoterol Fumarate (Symbicort 160mcg/4.5mcg) 2 puffs INH BID [facility] Stop: 05/05/19 20:59 Last Admin: 04/06/19 08:40 Dose: 2 puffs Documented by: Citalopram Hydrobromide (Celexa) 40 mg PO [facility] Stop: 05/05/19 20:59 Last Admin: 04/05/19 21:37 Dose: 40 mg Documented by: Ferrous Gluconate (Ferrous Gluconate) 324 mg PO TID [facility] Stop: 05/05/19 20:59 Last Admin: 04/06/19 08:40 Dose: 324 mg Documented by: Folic Acid (Folvite) 1 mg PO QAM [facility] Stop: 05/06/19 08:59 Last Admin: 04/06/19 08:40 Dose: 1 mg Documented by: Gabapentin (Neurontin) 800 mg PO TID [facility] Stop: 05/05/19 20:59 Last Admin: 04/06/19 08:39 Dose: 800 mg Documented by: Furosemide 40 mg/ Syringe 4 mls @ 4 mls/min IV BID17 [facility] Stop: 05/05/19 20:44 Last Admin: 04/06/19 08:39 Dose: 4 mls/min Documented by: Heparin Sodium/Dextrose (Heparin Sodium/Dextrose) 25,000 units in 500 mls @ 28 mls/hr IV .[id number] [facility]; Protocol Stop: 05/05/19 21:44 Last Titration: 04/06/19 07:07 Dose: 1,400 units/hr, 28 mls/hr Documented by: Magnesium Oxide (Mag-Ox) 400 mg PO DAILY [facility] Stop: 05/06/19 08:59 Last Admin: 04/06/19 08:40 Dose: 400 mg Documented by: Metoprolol Succinate (Toprol Xl) 25 mg PO DAILY [facility] Stop: 05/06/19 08:59 Last Admin: 04/06/19 08:40 Dose: 25 mg Documented by: Miscellaneous (Order Awaiting Action) 1 ea N/A QS [facility] Stop: 05/06/19 00:00 Last Admin: 04/06/19 08:39 Dose: Not Given Documented by: Multivitamins (Multivitamin Tab) 1 tab PO [facility] Stop: 05/06/19 08:59 Last Admin: 04/06/19 08:40 Dose: 1 tab Documented by: Pantoprazole Sodium (Protonix) 40 mg PO [facility]; Protocol Stop: 05/06/19 08:59 Last Admin: 04/06/19 08:41 Dose: 40 mg Documented by: Spironolactone (Aldactone) 25 mg PO [facility] Stop: 05/07/19 08:59 Spironolactone (Aldactone) 12.5 mg PO TODAY@0900 [facility]; Protocol Stop: 04/06/19 09:01 Vitamin B Complex (Vitamin B Complex) 1 tab PO [facility] Stop: 05/06/19 08:59 Last Admin: 04/06/19 08:41 Dose: 1 tab Documented by:
[2019-04-06] MEDS ORDERED: SPIRONOLACTONE 25 MG TAB PO SCH ×2 (09:00)
[2019-04-06] MEDS ORDERED: ALBUMIN 25% 50 ML IV SCH (09:45)
--- NOTE | 2019-04-06 10:07 | Gastrointestinal Consultation ---
Date of Consultation April 06, 2019 Assessment & Plan (1) Cirrhosis: 68 year old female with T2DM, CKD, COPD, CAD, CHF and cirrhosis admitted w/ chest pain, anasarca and abdominal ascites despite outpatient diuretic titration. Will arrange diagnostic paracentesis once clinically able (was on h eparin gtt) to evaluate etiology of ascites Ascites - ECHO completed - Check Hepatic Duplex - Can have diagnostic and therapeutic paracentesis - Will need to hold heparin drip for this - This was stopped at 10 am - Albumin 25% 25G before and after if large volume - Please check cell count, culture, protein, albumin, cytology - Low NA diet, less than 2G - Would continue diuresis Cirrhosis Management - No ETOH - Less than 2G tylenol if using - EGD in 2020 - HCC screen w/ imaging and AFP every 6 months - MELD labs every 6 months - Continued OP hepatology follow up. Thank you for allowing us to participate in the care of this patient. Please call with any acute changes, questions or concerns. Please see addendum below with additional recommendation from my supervising physician. Present on Admission?: Yes Supervising Physician Co-Signing Physician Notes I performed a history and physical examination of the patient, including specifically on physical exam - soft, nontender abdomen. I have discussed the patient's management with . Please refer to the nurse practitioner's note for the documented findings and plan of care. Perform paracentesis today to evaluate etiology of ascites. Diuretics and IV Albumin. History of Present Illness Reason for Consultation: ascites Requesting Physician: Matt Attending Physician: Melissa Gutierrez, History of Present Illness 68 year old female wit hhisotry of T2dM, PAD, CHF, ischemic cardiomyopathy, left BKA, cirrhosis and others below who presented through the ED for evaluation of chest discomfort, abdominal distention. GI asked to evaluate for ascites, cirrhosis. Pt was seen and evaluated, chart reviewed. She endorses over the past two weeks she has had worsening lower extremity edema from her toes all the way up to her knees. At this time she also noted abdominal distention. Denies any dietary changes, medication changes. Abd distention persisted, associated w/ fullness and dull pain. No other UGI symptoms. No nausea, vomiting. Denies any black/bloody stools. No fever, chills, CP, SOB. Denies any ETOH of recent. Review of records does indicated prior heavy ETOH use In the ED troponin elevated, EKG w/o ischemic changes but was started on a heparin drip until evaluated by cardiology this AM. Plan to D/C heparin drip around [address] was completed without contrast given dye allergy w/ evidence of large volume ascites Diagnosis: cirrhosis on imaging w/ negative ANNE-MARIE, AMA, ASMA prior ETOH abuse history Decompensations Varices: none Ascites: new, large volume He: none Screening Varices: 2020 HCC: September 2019 Immunizations: unclear ECHO: EF 40% EGD 2019: Normal esophagus.Z-line variable.A medium amount of food (residue) in the stomach. Normal duodenal bulb and second portion of the duodenum. Noncon CT 2019: Cirrhotic liver disease with moderate to large volume of abdominal pelvic ascites, anasarca, small left pleural effusion and small pericardial effusion. . Colonic diverticulosis without definitive evidence of acute diverticulitis. No bowel obstruction or focal bowel wall thickening. Cardiomegaly. Allergies Allergy/AdvReac Type Severity Reaction Status Date / Time Iodinated Contrast- Oral and Allergy Intermediate severe Verified 04/05/19 16:27 IV Dye vomiting Penicillins Allergy Intermediate hives/upset Verified 04/05/19 16:27 stomach/diarrhea oxycodone [From Percocet] AdvReac Intermediate vomiting Verified 04/05/19 16:27 Home Medications Home Medications Medication Instructions Recorded Confirmed Type aspirin 81 mg tablet,delayed 81 mg PO QAM 07/22/18 04/05/19 History release citalopram 40 mg tablet 40 mg PO HS 07/22/18 04/05/19 History gabapentin 800 mg tablet 800 mg PO TID tab 07/22/18 04/05/19 History omega 8-gti-rgg-fish oil 1,000 mg 1 cap PO QAM cap 07/22/18 04/05/19 History (120 mg-180 mg) capsule cyclobenzaprine 5 mg tablet 5 mg PO TID PRN 09/04/18 04/05/19 History Symbicort 2 puff INHALATION BID 03/01/19 04/05/19 History atorvastatin 80 mg PO HS 03/01/19 04/05/19 History ferrous gluconate 324 mg PO TID 03/01/19 04/05/19 History folic acid 1 mg PO QAM 03/01/19 04/05/19 History ipratropium-albuterol 3 ml INHALATION Q6 PRN 03/01/19 04/05/19 History metoprolol succinate 25 mg PO DAILY 03/01/19 04/05/19 History multivitamin 1 tab PO QAM 03/01/19 04/05/19 History omeprazole 40 mg PO QAM 03/01/19 04/05/19 History vitamin B complex 1 tab PO QAM 03/01/19 04/05/19 History losartan 25 mg tablet 12.5 mg PO QAM tab 03/17/19 04/05/19 History spironolactone 25 mg tablet 12.5 mg PO DAILY tab 03/17/19 04/05/19 History furosemide [Lasix] 40 mg PO BID 04/05/19 04/05/19 History magnesium oxide 400 mg PO DAILY 04/05/19 04/05/19 History nitroglycerin 0.4 mg SUBLINGUAL UD 04/05/19 04/05/19 History tiotropium bromide [Spiriva 2 inh INHALATION DAILY 04/05/19 04/05/19 History Respimat] Patient History Medical History History of left below knee amputation (Chronic) SARANYA (iron deficiency anemia) (Chronic) Valvular heart disease (Chronic) Moderate aortic valve stenosis, moderate mitral regurgitation, mild tricuspid regurgitation Ischemic cardiomyopathy (Chronic) Chronic combined systolic and diastolic CHF (congestive heart failure) (Chronic) EF 40 to 44%, grade 2 diastolic dysfunction CAD (coronary artery disease) (Chronic) 2004 -PCI to unknown vessel PAD (peripheral artery disease) (Chronic) COPD (chronic obstructive pulmonary disease) (Chronic) CKD (chronic kidney disease), stage III (Chronic) Diabetic peripheral neuropathy (Chronic) DM type 2 (diabetes mellitus, type 2) (Chronic) Charcot foot due to diabetes mellitus (Chronic) Surgical History History of bilateral carotid endarterectomy (Chronic) History of cholecystectomy (Chronic) Family History Father Family history of diabetes mellitus Sister Breast cancer Social History Preferred Language: Swedish Communication Ability: Effective Visual Impairment: Limited Hearing Ability: Normal Fish Seiner Required: No Beliefs That Will Affect Care: None marital status: Current Living Situation: Spouse Other Information That Helps Us Care for You: No Feels Safe at Home: Yes Safety Concerns: Feels Safe At This Time Smoking Status: Current every day smoker Tobacco Type: cigarettes Cigarettes Per Day: 3 Do You Dip or Chew Tobacco: No Second Hand Exposure: Yes Hx Alcohol Use: No Hx Substance Use: No Review of Systems Constitutional: no fever, no body aches and no weakness Respiratory: no cough and no dyspnea Cardiovascular: + edema; no chest pain, no palpitations and no syncope Gastrointestinal: + abdominal pain and + bloating; no nausea, no hematemesis, no cramping, no change in stools, no diarrhea/loose stools, no fecal incontinence, no blood in stools and no melena Physical Exam Constitutional: well developed and well nourished Neck: trachea midline Respiratory: normal respiratory effort, lungs clear to auscultation Cardiovascular: RRR, no murmur, no edema Gastrointestinal (Abdomen): Inspection/Auscultation: + abdomen distended and normal bowel sounds Percussion/Palpation: + abdomen tender, abdomen soft and + ascites (moderate); no guarding and abdomen not rigid Skin: no rashes, warm and dry Results & Data Vital Signs (Past 12 Hours) Vital Signs Temp Pulse Pulse Resp BP BP Pulse Ox 04/06/19 07:42 37.0 C 69 18 115/69 98 04/06/19 03:30 37.2 C 65 19 108/64 93 04/06/19 00:10 65 04/05/19 23:23 36.7 C 72 22 124/69 97 Laboratory Results 04/06/19 04/06/19 04/06/19 Range/Units 06:08 04:00 04:00 WBC (4.8-10.8) K/uL RBC (4.2-5.4) M/uL Hgb (12.0-16.0) g/dL Hct (37-47) % MCV (80-100) fL MCH (25-34) pg MCHC (32-36) g/dL RDW Std Deviation (36.4-46.3) fL RDW Coeff of Tiburcio (11.5-14.5) % Plt Count (130-400) K/uL MPV (7.4-10.4) fL Immature Gran % (Auto) % Neut % (Auto) % Lymph % (Auto) % [place] % (Auto) % Eos % (Auto) % Baso % (Auto) % Immature Gran # (Auto) (0.00-0.02) K/uL Neut # (Auto) (1.4-6.5) K/uL Lymph # (Auto) (1.2-3.4) K/uL Flagler # (Auto) (0.11-0.59) K/uL Eos # (Auto) (0-0.5) K/uL Baso # (Auto) (0-0.2) K/uL Polychromasia Anisocytosis PT (9.0-12.0) Seconds INR (0.9-1.1) APTT 37.3 H (21.0-31.0) Seconds PTT Ratio 1.4 Sodium 138 (136-145) mmol/L Potassium 3.9 (3.5-5.1) mmol/L Chloride 98 (98-107) mmol/L Carbon Dioxide 38 H (21-32) mmol/L Anion Gap 2.0 L (3-11) BUN 29 H (7-18) mg/dl Creatinine 1.39 H (0.6-1.2) mg/dl Est Cr Clr Drug Dosing 38.7 Est GFR ( Amer) 45.0 Est GFR (Non-Af Amer) 38.8 BUN/Creatinine Ratio 20.6 H (10-20) Glucose 125 H (70-99) mg/dl POC Glucose (70-99) Calcium 8.3 L (8.5-10.1) mg/dl Total Bilirubin 0.3 (0.2-1) mg/dl AST 14 L (15-37) U/L ALT 15 (12-78) U/L Alkaline Phosphatase 145 H (45-117) U/L Troponin I 0.064 H* (0-0.045) ng/ml Total Protein 6.5 (6.4-8.2) gm/dl Albumin 2.2 L (3.4-5.0) gm/dl Globulin 4.3 H (2.5-4.0) gm/dl Albumin/Globulin Ratio 0.5 L (0.9-2) Hepatitis C Ab Screen Neg (Neg) 04/05/19 04/05/19 04/05/19 Range/Units 22:11 22:00 16:12 WBC (4.8-10.8) K/uL RBC (4.2-5.4) M/uL Hgb (12.0-16.0) g/dL Hct (37-47) % MCV (80-100) fL MCH (25-34) pg MCHC (32-36) g/dL RDW Std Deviation (36.4-46.3) fL RDW Coeff of Tiburcio (11.5-14.5) % Plt Count (130-400) K/uL MPV (7.4-10.4) fL Immature Gran % (Auto) % Neut % (Auto) % Lymph % (Auto) % [place] % (Auto) % Eos % (Auto) % Baso % (Auto) % Immature Gran # (Auto) (0.00-0.02) K/uL Neut # (Auto) (1.4-6.5) K/uL Lymph # (Auto) (1.2-3.4) K/uL Flagler # (Auto) (0.11-0.59) K/uL Eos # (Auto) (0-0.5) K/uL Baso # (Auto) (0-0.2) K/uL Polychromasia Anisocytosis PT (9.0-12.0) Seconds INR (0.9-1.1) APTT (21.0-31.0) Seconds PTT Ratio Sodium 137 (136-145) mmol/L Potassium 3.7 (3.5-5.1) mmol/L Chloride 97 L (98-107) mmol/L Carbon Dioxide 32 (21-32) mmol/L Anion Gap 8.0 (3-11) BUN 27 H (7-18) mg/dl Creatinine 1.35 H (0.6-1.2) mg/dl Est Cr Clr Drug Dosing Not Reportable Est GFR ( Amer) 46.6 Est GFR (Non-Af Amer) 40.2 BUN/Creatinine Ratio 20.0 (10-20) Glucose 103 H (70-99) mg/dl POC Glucose 109 H (70-99) Calcium 8.5 (8.5-10.1) mg/dl Total Bilirubin 0.4 (0.2-1) mg/dl AST 17 (15-37) U/L ALT 15 (12-78) U/L Alkaline Phosphatase 151 H (45-117) U/L Troponin I 0.070 H* 0.062 H* (0-0.045) ng/ml Total Protein 6.7 (6.4-8.2) gm/dl Albumin 2.3 L (3.4-5.0) gm/dl Globulin 4.4 H (2.5-4.0) gm/dl Albumin/Globulin Ratio 0.5 L (0.9-2) Hepatitis C Ab Screen (Neg) 04/05/19 04/05/19 04/05/19 Range/Units 16:12 16:12 15:47 WBC 5.86 (4.8-10.8) K/uL RBC 4.63 (4.2-5.4) M/uL Hgb 10.8 L (12.0-16.0) g/dL Hct 35.5 L (37-47) % MCV 76.7 L (80-100) fL MCH 23.3 L (25-34) pg MCHC 30.4 L (32-36) g/dL RDW Std Deviation 55.6 H (36.4-46.3) fL RDW Coeff of Tiburcio 20.2 H (11.5-14.5) % Plt Count 261 (130-400) K/uL MPV 9.2 (7.4-10.4) fL Immature Gran % (Auto) 0.2 % Neut % (Auto) 84.2 % Lymph % (Auto) 9.7 % Flagler % (Auto) 5.6 % Eos % (Auto) 0.0 % Baso % (Auto) 0.3 % Immature Gran # (Auto) 0.01 (0.00-0.02) K/uL Neut # (Auto) 4.93 (1.4-6.5) K/uL Lymph # (Auto) 0.57 L (1.2-3.4) K/uL Flagler # (Auto) 0.33 (0.11-0.59) K/uL Eos # (Auto) 0.00 (0-0.5) K/uL Baso # (Auto) 0.02 (0-0.2) K/uL Polychromasia 1+ Anisocytosis Present PT 12.2 H (9.0-12.0) Seconds INR 1.2 H (0.9-1.1) APTT 26.8 (21.0-31.0) Seconds PTT Ratio 1.0 Sodium (136-145) mmol/L Potassium (3.5-5.1) mmol/L Chloride (98-107) mmol/L Carbon Dioxide (21-32) mmol/L Anion Gap (3-11) BUN (7-18) mg/dl Creatinine (0.6-1.2) mg/dl Est Cr Clr Drug Dosing Est GFR ( Amer) Est GFR (Non-Af Amer) BUN/Creatinine Ratio (10-20) Glucose (70-99) mg/dl POC Glucose (70-99) Calcium (8.5-10.1) mg/dl Total Bilirubin (0.2-1) mg/dl AST (15-37) U/L ALT (12-78) U/L Alkaline Phosphatase (45-117) U/L Troponin I (0-0.045) ng/ml Total Protein (6.4-8.2) gm/dl Albumin (3.4-5.0) gm/dl Globulin (2.5-4.0) gm/dl Albumin/Globulin Ratio (0.9-2) Hepatitis C Ab Screen (Neg)
--- NOTE | 2019-04-06 10:58 | Consultation Report ---
DATE OF CONSULTATION: 04/06/2019 CONSULTATION REQUESTED BY: NATHALIA Talley. REASON FOR CONSULTATION: Chest pain and ischemic cardiomyopathy. HISTORY OF PRESENT ILLNESS: The patient is a very pleasant, yet very medically complex 68-year-old woman, who normally follows with myself and John Webb of our Cardiology practice for history of ischemic cardiomyopathy, coronary artery disease and valvular heart disease. She was seen by John Webb on 04/05/2019 as an outpatient and found to have a 20-pound weight gain. She states that she has been having significant peripheral edema increasing over the last several weeks and upon presentation to the office, she noted that her edema is now up into her hips. She has also had some shortness of breath with some mild chest congestion and she states that she is unable to take a deep breath because of further abdominal distention. The patient did have 1 episode of chest discomfort a day prior to presentation, which she described as her normal chest pain, which he gets all the time. It resolved with 1 sublingual nitroglycerin and has not recurred, lasted only a few moments. Otherwise, she states that she has been taking her medications as directed. Unfortunately, she has not been following her diet and did make soup at home recently. Otherwise, she denies any palpitations, lightheadedness, dizziness or syncope. She states that currently she is very uncomfortable due to her ascites and abdominal distention. PAST SURGICAL HISTORY: 1. Left BKA. 2. Bilateral carotid endarterectomies. 3. PCI to unknown vessels. 4. Cholecystectomy. 5. Colonoscopy. 6. Upper endoscopy. MEDICAL ILLNESSES: 1. Coronary artery disease status post PCI to unknown vessels. 2. Mild ischemic cardiomyopathy, EF 40%-45%. 3. Moderate mitral regurgitation. 4. Moderate aortic regurgitation. 5. Peripheral artery disease with left BKA and bilateral carotid endarterectomies. 6. Ongoing tobacco abuse. 7. Dyslipidemia. 8. Hypertension. 9. COPD. 10. History of hypoxemia, untreated. 11. History of obstructive sleep apnea, untreated. 12. History of prior heavy alcohol use/abuse. 13. Cirrhosis of the liver. FAMILY HISTORY: Noncontributory. SOCIAL HISTORY: The patient is a lifelong smoker and continues to smoke. She states that she is down a few cigarettes a day. Former heavy alcohol user, has not drank in some time. Denies any recreational drug use. She is and lives at home with her . REVIEW OF SYSTEMS: As per HPI. All other review of systems reviewed and negative at this time. ALLERGIES: 1. CONTRAST DYE. 2. PENICILLIN. 3. PERCOCET. MEDICATIONS AN OUTPATIENT: 1. Spironolactone 12.5 mg daily. 2. Magnesium oxide 400 mg daily. 3. Lasix 40 mg daily. 4. Losartan 12.5 mg daily. 5. Atorvastatin 80 mg daily. 6. Metoprolol succinate 25 mg daily. 7. Aspirin 81 mg daily. 8. Spiriva inhaler. 9. Celexa. 10. Neurontin. 11. Iron. 12. Omeprazole. 13. Symbicort inhaler. PHYSICAL EXAMINATION: VITALS: Temperature 37, pulse 69, respiratory rate 12, blood pressure 115/69. GENERAL: Awake, alert, oriented x3, in no acute distress. HEENT: Normocephalic, atraumatic. Pupils equal, round, reactive to light and accommodation. Extraocular muscles intact. Anicteric sclerae. Moist mucous membranes. NECK: No JVD, no bruit. CARDIOVASCULAR: Regular, but distant. Unable to appreciate murmurs, rubs or gallops. PULMONARY: Scant bibasilar crackles, otherwise clear. No rhonchi or wheezing. ABDOMEN: Diffusely distended and tight. Positive fluid wave. Unable to appreciate any organomegaly. Diffusely tender. No rebound or guarding. EXTREMITIES: Status post left BKA with diffuse +3 pitting edema up to the level of her hips. Unable to appreciate pedal pulse on the right. SKIN: Warm and dry. TEST RESULTS: A 2D echocardiogram was read as unchanged compared to previous study of 03/10/2019. Normal LV chamber size with moderate concentric LVH, mildly reduced LV systolic function, EF of 40%-45%, inferior wall is moderately hypokinetic, the remaining wall segments are mildly hypokinetic, grade 2 diastolic dysfunction, moderately calcified trileaflet aortic valve with moderate aortic stenosis and mild aortic regurgitation, severe mitral annular calcification causing recent mild mitral stenosis, moderate to severe mitral regurgitation with an anteriorly directed jet, mild tricuspid regurgitation. Pulmonary hypertension is present with an RV systolic pressure of 40-50 mmHg, small circumferential pericardial effusion with a moderate amount of fluid adjacent to the posterior wall, cardiac tamponade is absent, large amount of abdominal ascites is visualized. LABORATORY STUDIES OF SIGNIFICANCE: Troponin minimally above reference range at 0.06 stable, BUN 29, creatinine of 1.4, AST 14, ALT 15, alkaline phosphatase 145, albumin 2.2. A 12-lead EKG performed in the Emergency Department independently reviewed at this time shows sinus rhythm with occasional PVCs, low amplitude study, old anterior wall infarct pattern, no significant change compared to previous studies. IMPRESSION: 1. Chest pain, not representing acute coronary syndrome. 2. Severe ascites with need for paracentesis. 3. Preprocedural risk prior paracentesis. 4. Coronary artery disease, stable. 5. Ischemic cardiomyopathy, stable. 6. Significant valvular heart disease. 7. Pulmonary hypertension. 8. Ongoing tobacco abuse. 9. Untreated hypoxemia and obstructive sleep apnea. 10. Likely passive congestion of the liver. 11. Likely hepatorenal syndrome. RECOMMENDATIONS: It was my pleasure to see the patient in consultation today. From a cardiac standpoint, I do not believe the chest pain she had several days ago represents an acute coronary syndrome and at worst likely chronic stable angina. Her troponins are flat and not significant, so her heparin will be discontinued. There are no new wall motion abnormalities on echocardiogram and her EKG is nonischemic and she is currently pain free, so no further testing or intervention is necessary at this time. In terms of her periprocedural risk, she was counseled that she should be at least moderate risk of any adverse perioperative events with the risk being approximately less than 5%. She was further counseled that no further cardiac testing intervention would further lower that risk. She states that she understands. She is accepting that risk and wished to proceed with a paracentesis and at this point, I agree that the benefits outweigh the risks. In terms of her troponin, I believe it is likely due to chronic myocardial strain along with hepatorenal syndrome and worsening renal function and again do not believe it represents active ischemia. In terms of her diuretics, given her history of cirrhosis, I do believe she would benefit from spironolactone. Current guidelines recommend ratio of spironolactone to Lasix of approximately 100 mg to 40 mg and I will defer further up titration of spironolactone to our GI colleagues at this time. Unfortunately, beta blockade and afterload reduction with ARB is necessary given her ischemic cardiomyopathy even though this may worsen her hepatic function. MTDD
[2019-04-06] MEDS: ALBUMIN 25% 50 ML IV SCH ×2 (12:40→13:14)
[2019-04-06] MEDS ORDERED: ALBUT/IPRATROP 3MG/0.5MG NEB 3 ML VIAL NEB PRN (12:50)
--- NOTE | 2019-04-06 17:59 | Ultrasound Report ---
US paracentesis abd w/image CLINICAL HISTORY: 68 years-old Female with large volume ascites. Cirrhosis with ascites COMPARISON: CT abdomen and pelvis 04/05/2019 PROCEDURE: The procedure was explained to the patient in the care including the benefits and possible risks/complications. The patient gave verbal understanding and written consent was obtained. A time -out was performed prior to the start of the procedure. The patient was placed on the ultrasound table in the supine position. Using ultrasound guidance, an appropriate procedure site in the left lower quadrant abdomen was marked. This area was then prepped and draped in the usual sterile fashion. Local anesthesia was achieved within 1% lidocaine. An 8-Fren ch centesis catheter was then inserted. There was a degree of difficulty with inserting the catheter through the large amount of subcutaneous fat. The first catheter was not inserted deeply enough. Subs equently a second catheter was then used. Approximately 3.0 liters of clear, yellowish fluid was cornelia tobin and sent to the lab for analysis. The catheter was removed and external pressure was held to achieve hemostasis. A sterile dressing was applied to the procedure site. The patient tolerated the procedure well without immediate complicati ons. IMPRESSION: Successful ultrasound-guided paracentesis with removal of 3.0 L ascitic fluid The above report was generated using voice recognition software. It may contain grammatical, syntax o r spelling errors. Electronically signed by: Trever Salgado M.D. 04/06/2019 5:58 PM
--- NOTE | 2019-04-06 18:04 | Ultrasound Report ---
US duplex portal hepatic veins CLINICAL HISTORY: 68 years-old Female presenting with new ascites, noncon CT, please evaluate for PVT et. TECHNIQUE: Real-time grayscale and color and spectral Doppler ultrasound imaging of the liver was per formed. COMPARISON: None. FINDINGS: Vasculature: Portal veins: Main portal vein with normal antegrade flow and gentle undulating waveforms. Peak veloc ity 27 cm/s. Right and left portal veins with normal directional flow. Hepatic arteries: Proper hepatic artery with high resistance waveforms and limited diastolic flow. Pe ak systolic velocity 57 cm/s. Hepatic veins: Right, middle, and left hepatic veins with normal triphasic waveforms. Splenic vein: Patent. IVC: Patent. Ascites: Present. IMPRESSION: 1. High resistance hepatic arterial waveforms and limited diastolic flow. Normal peak systolic veloc ity. High resistance waveforms are nonspecific and can be seen in the postprandial state, patients wi th advanced age, diffuse peripheral microvascular disease, and chronic hepatocellular disease. 2. Patent portal veins with normal directional flow. 3. Patent hepatic veins. Electronically signed by: Mina Jackson M.D. 04/06/2019 6:02 PM
[2019-04-06 19:36] LABS: Appearance Peritoneal Fluid CLEAR; Color Peritoneal Fluid STRAW; Mononuclear WBC Peritoneal 63.4 %; Polynuclear WBC Peritoneal 36.6 %; RBC Peritoneal Fluid (A) < 3000 /uL; WBC Peritoneal Fluid (A) 162 /ul (0-300)
[2019-04-06] MEDS: CITALOPRAM 40 MG TAB PO SCH (20:52)
[2019-04-06] MEDS: ENOXAPARIN INJ 40 MG/0.4 ML SYR SQ SCH (20:52)
[2019-04-06] MEDS: ATORVASTATIN 40 MG TAB PO SCH (20:53)
[2019-04-07 07:24] LABS: Hematocrit (blood only) 36.1 % (37-47); Hemoglobin 10.8 g/dL (12.0-16.0); Mean Corpuscular Hgb Conc 29.9 g/dL (32-36); Mean Corpuscular Volume 77.5 fL (80-100); Mean Platelet Volume 9.3 fL (7.4-10.4); Platelet Count 202 K/uL (130-400); RDW Coefficient of Variation 19.8 % (11.5-14.5); RDW Standard Deviation 55.1 fL (36.4-46.3); Red Blood Count 4.66 M/uL (4.2-5.4); White Blood Count 5.94 K/uL (4.8-10.8)
[2019-04-07 07:33] LABS: Partial Thromboplastin Time 28.4 Seconds (21.0-31.0)
[2019-04-07] MEDS: FUROSEMIDE 40 MG in SYRINGE 0 ML IV SCH ×3 (08:10→22:03)
[2019-04-07] MEDS: METOPROLOL SUCC 25MG EXT REL TAB PO SCH (08:11)
[2019-04-07] MEDS: MULTIVITAMIN TAB PO SCH (08:11)
[2019-04-07] MEDS: FERROUS GLUCONATE 324 MG TAB PO SCH ×3 (08:11→20:55)
[2019-04-07] MEDS: PANTOprazole 40 MG TAB PO SCH (08:11)
[2019-04-07] MEDS: MAGNESIUM OXIDE 400 MG TAB PO SCH (08:11)
[2019-04-07] MEDS: BUDESONIDE/FORMOTEROL FUMARATE 160/4.5 60 PUFFS/INHALER INH SCH ×2 (08:12→20:57)
[2019-04-07] MEDS: FOLIC ACID 1 MG TAB PO SCH (08:12)
[2019-04-07] MEDS: GABAPENTIN 800 MG TAB PO SCH ×3 (08:12→20:56)
[2019-04-07] MEDS: ASPIRIN 81 MG ECTAB PO SCH (08:12)
[2019-04-07] MEDS: VITAMIN B COMPLEX TAB PO SCH (08:12)
[2019-04-07] MEDS ORDERED: SPIRONOLACTONE 25 MG TAB PO SCH (09:00)
--- NOTE | 2019-04-07 09:56 | Gastroenterology Progress Note ---
Date of Service April 07, 2019 Assessment & Plan (1) Cirrhosis: 68 year old female with T2DM, CKD, COPD, CAD, CHF and cirrhosis admitted w/ chest pain, anasarca and abdominal ascites despite outpatient diuretic titration. Will arrange diagnostic paracentesis once clinically able (was on heparin gtt) to evaluate etiology of ascites. S/P paracentesis, no SBP, low SAAG w/ high total protein. Ascites - ECHO completed - Hepatic Duplex completed - Follow fluid studies - Low NA diet, less than 2G - Would continue diuresis - Consider repeat paracentesis for additional fluid removal - Continue pressure to sight - Consider dermabond to sit if persistent leak Cirrhosis Management - No ETOH - Less than 2G tylenol if using - EGD in 2020 - HCC screen w/ imaging and AFP every 6 months - MELD labs every 6 months - Continued OP hepatology follow up. Thank you for allowing us to participate in the care of this patient. Please call with any acute changes, questions or concerns. Please see addendum below with additional recommendation from my supervising physician. Supervising Physician Co-Signing Physician Notes I performed a history and physical examination of the patient, including specifically on physical exam - soft, nontender abdomen. I have discussed the patient's management with Amy. Please refer to the nurse practitioner's note for the documented findings and plan of care. Tap analysis with no SBP, etiology mixed in the setting of diuretics. Repeat Tap again with LVP Continue diuresis. Give Albumin. Follow up as OP with GI clinic. Recall GI if needed. Subjective Pt was seen and evaluated, chart reviewed. S/P paracentesis. Feels better but notes she has had some fluid leaking from site. No abd pain. No nausea, vomiting. Moving bowels. No black/bloody stools. No fever, chills, CP, SOB. Diagnosis: cirrhosis on imaging w/ negative ANNE-MARIE, AMA, ASMA prior ETOH abuse history Decompensations Varices: none Ascites: new, large volume He: none Screening Varices: 2020 HCC: September 2019 Immunizations: unclear Paracentesis:3L, No SBP, SAAG 0.5 w/ high total protein, cytology pending Hepatic Duplex: Patent portal veins with normal directional flow.Patent hepatic veins. ECHO: EF 40% EGD 2019: Normal esophagus.Z-line variable.A medium amount of food (residue) in the stomach. Normal duodenal bulb and second portion of the duodenum. Noncon CT 2019: Cirrhotic liver disease with moderate to large volume of abdominal pelvic ascites, anasarca, small left pleural effusion and small pericardial effusion. . Colonic diverticulosis without definitive evidence of acute diverticulitis. No bowel obstruction or focal bowel wall thickening. Cardiomegaly. Review of Systems Constitutional: no fever, no chills, no body aches and no fatigue Respiratory: no cough, no dyspnea and no wheezing Cardiovascular: no chest pain, no radiating jaw, neck or arm pain, no dyspnea on exertion and no palpitations Gastrointestinal: + bloating; no abdominal pain, no early satiety, no vomiting, no pain with swallowing and no excessive flatulence Physical Exam Constitutional: WD/WN, vitals as above Respiratory: normal respiratory effort; no respiratory distress Cardiovascular: Rate/Rhythm: regular rate and regular rhythm Gastrointestinal (Abdomen): Inspection/Auscultation: normal bowel sounds Percussion/Palpation: abdomen soft and + ascites; abdomen nontender, no guarding and abdomen not rigid Skin: no rashes, warm and dry Psychiatric: Orientation: alert and oriented x 3 Results & Data Vital Signs (Past 12 Hours) Vital Signs Temp Pulse Pulse Resp BP Pulse Ox 04/07/19 08:37 37 C 60 18 119/66 97 04/07/19 04:00 36.7 C 62 17 105/50 L 95 04/07/19 00:00 36.8 C 64 18 117/65 95 04/06/19 23:35 66 Laboratory Results 04/07/19 04/07/19 04/07/19 Range/Units 07:37 07:11 07:11 WBC 5.94 (4.8-10.8) K/uL RBC 4.66 (4.2-5.4) M/uL Hgb 10.8 L (12.0-16.0) g/dL Hct 36.1 L (37-47) % MCV 77.5 L (80-100) fL MCH 23.2 L (25-34) pg MCHC 29.9 L (32-36) g/dL RDW Std Deviation 55.1 H (36.4-46.3) fL RDW Coeff of Tiburcio 19.8 H (11.5-14.5) % Plt Count 202 (130-400) K/uL MPV 9.3 (7.4-10.4) fL APTT 28.4 (21.0-31.0) Seconds PTT Ratio 1.0 POC Glucose 105 H (70-99) Peritoneal Color Peritoneal Appearance Peritoneal WBC (0-300) /ul Peritoneal RBC /uL Mononuclear WBCs % % Polynuclear WBCs % % Peritoneal Tot Protein g/dl Peritoneal Albumin g/dl 04/06/19 04/06/19 04/06/19 Range/Units Unknown Unknown Unknown WBC (4.8-10.8) K/uL RBC (4.2-5.4) M/uL Hgb (12.0-16.0) g/dL Hct (37-47) % MCV (80-100) fL MCH (25-34) pg MCHC (32-36) g/dL RDW Std Deviation (36.4-46.3) fL RDW Coeff of Tiburcio (11.5-14.5) % Plt Count (130-400) K/uL MPV (7.4-10.4) fL APTT (21.0-31.0) Seconds PTT Ratio POC Glucose (70-99) Peritoneal Color STRAW Peritoneal Appearance CLEAR Peritoneal WBC 162 (0-300) /ul Peritoneal RBC < 3000 /uL Mononuclear WBCs % 63.4 % Polynuclear WBCs % 36.6 % Peritoneal Tot Protein 4.2 g/dl Peritoneal Albumin 1.7 g/dl 04/06/19 04/06/19 Range/Units 20:25 11:20 WBC (4.8-10.8) K/uL RBC (4.2-5.4) M/uL Hgb (12.0-16.0) g/dL Hct (37-47) % MCV (80-100) fL MCH (25-34) pg MCHC (32-36) g/dL RDW Std Deviation (36.4-46.3) fL RDW Coeff of Tiburcio (11.5-14.5) % Plt Count (130-400) K/uL MPV (7.4-10.4) fL APTT (21.0-31.0) Seconds PTT Ratio POC Glucose 120 H 111 H (70-99) Peritoneal Color Peritoneal Appearance Peritoneal WBC (0-300) /ul Peritoneal RBC /uL Mononuclear WBCs % % Polynuclear WBCs % % Peritoneal Tot Protein g/dl Peritoneal Albumin g/dl
--- NOTE | 2019-04-07 10:52 | Cardiology Progress Note ---
Date of Service April 07, 2019 Assessment & Plan (1) Ischemic cardiomyopathy: remains significantly volume overloaded paracentesis reportedly removed 3L but still with significant ascites will defer to GI whether repeated tap necessary will increase diuretics for now increase spironolactone to 25mg bid increase lasix to 40mg q8 hrs stat labs to be drawn now follow and replete lytes as necessary cont metoprolol losartan held ideally from a cardiac standpoint would like maximize beta blockade, afterload reduction with ARB, add Entresto, unfortunately, the diagnosis of cirrhosis significantly complicates medical management and the need to increase hepatic perfusion will hold off on RONNY and entresto for now will not uptitrate beta alma will increase spironolactone (2) Cirrhosis: guidelines recommend a ratio of spironolactone 100mg to lasix 40mg for cirrhosis would ask for GI recommendations (3) CKD (chronic kidney disease), stage III: slightly worsened stat labs ordered now ?hepatorenal syndrome would consider nephrology recommendations if function further declines Subjective Pt seen and examined, states that she had 3L removed with paracentesis last PM and feeling somewhat better. Notes that she still has a significant amount of ascites. Breathing has improved but abdomen still distended and uncomfortable. She can feel the fluid in her belly. Denies cp, palpitations, lightheadedness or dizziness. tele reviewed: sinus rhythm without arrhythmia Review of Systems Review of Systems: All systems reviewed & are unremarkable except as noted in HPI & below Physical Exam Physical Exam: General: Awake, alert and oriented x 3. No acute distress. HEENT: Normocephalic, atraumatic. Pupils equal, round and reactive to light and accommodation. Extraocular muscles are intact. Anicteric sclera. Moist mucous membranes. Neck: No JVD. No bruit. Cardiovascular: Regular. Positive S-4. Normal S-1 and S-2. No S-3. No murmurs or rubs. Pulmonary: Clear to auscultation B/L. No rales, rhonchi or wheezing Abdomen: Distended, diffusely tender, positive fluid wave Extremities: No clubbing, cyanosis or edema. +2 pedal pulses bilaterally. Skin: Warm and dry. Results & Data Vital Signs (Past 12 Hours) Vital Signs Temp Pulse Pulse Resp BP Pulse Ox 04/07/19 08:37 37 C 60 18 119/66 97 04/07/19 04:00 36.7 C 62 17 105/50 L 95 04/07/19 00:00 36.8 C 64 18 117/65 95 04/06/19 23:35 66
[2019-04-07 11:22] LABS: BUN Creatinine Ratio 22.7 (10-20); Calcium 8.4 mg/dl (8.5-10.1); Creatinine Clr Calc Pharmacy 48.1 ml/min; Est GFR (African American) 60.4; Est GFR (Non-African American) 52.1; Magnesium 2.1 mg/dl (1.8-2.4); Potassium 3.8 mmol/L (3.5-5.1)
--- NOTE | 2019-04-07 18:32 | Hospitalist Progress Note ---
Date of Service April 07, 2019 Assessment & Plan (1) Cirrhosis: Ascites S/P Paracentesis Follow up ascitic fluid cultures Continue low salt diet Planned for repeat abdominal paracentesis tomorrow Appreciate GI Input Continue diuretic therapy HCC screen w/ imaging and AFP every 6 months; MELD labs every 6 months Needs hepatology follow-up as outpatient (2) Chronic combined systolic and diastolic CHF (congestive heart failure): Ischemic cardiomyopathy Continue lasix 40mg Q8H Continue spironolactone 25 mg twice daily low sodium diet, fluid restriction Monitor Daily weight Appreciate Cardiology Input (3) Ascites: Management as above (4) Chest pain: h/o CAD and PAD Likely anginal pain, no ACS Continue medical management (5) Elevated troponin: Likely related to demand ischemia in the setting of anasarca and congestion (6) Pericardial effusion: No evidence of tamponade on echo (7) CAD (coronary artery disease): continue current meds (8) CKD (chronic kidney disease), stage III: Cr at baseline Monitor renal function (9) DM type 2 (diabetes mellitus, type 2): Hgb A1c 6.1 12/2018 Currently not on any medical therapy Monitor BSG's (10) COPD (chronic obstructive pulmonary disease): no signs of acute exacerbation Continue home inhalers (11) DVT prophylaxis: Lovenox SQ Code Status DNR/DNI Disposition: To be determined Subjective Patient is seen and examined at bedside Shortness of breath is better Nauseous this morning but denies vomiting Reports mild abdominal discomfort Some peritoneal fluid leak from the site of paracentesis Offers no other complaints Review of Systems Review of Systems: All systems reviewed & are unremarkable except as noted in HPI & below Physical Exam Physical Exam: Physical Exam: Vitals signs as noted above General Appearance:Obese, no apparent distress Head: normocephalic, Atraumatic Eyes: normal inspection, EOMI Neck: supple, Trachea midline Respiratory/Chest: Normal breath sounds, R basal crackles Cardiovascular: S1, S2, + murmur Abdomen/GI:Soft, Mild tender, +Ascites, Bowel sounds present Extremities/Musculoskelatal:normal inspection, Left BKA, R LE 1+ edema Neurologic/Psych:AAOX3, grossly no focal neurological deficits Skin: normal color, warm Results & Data Vital Signs (Past 12 Hours) Vital Signs Temp Pulse Resp BP BP Pulse Ox 04/07/19 15:42 36.3 C L 61 16 119/67 97 04/07/19 11:58 37.1 C 64 18 114/61 96 04/07/19 08:37 37 C 60 18 119/66 97 Laboratory Results Short CBC 04/07/19 Range/Units 07:11 WBC 5.94 (4.8-10.8) K/uL Hgb 10.8 L (12.0-16.0) g/dL Hct 36.1 L (37-47) % Plt Count 202 (130-400) K/uL BMP 04/07/19 10:55 Sodium 136 Potassium 3.8 Chloride 94 L Carbon Dioxide 37 H BUN 25 H Creatinine 1.09 Glucose 109 H Calcium 8.4 L
[2019-04-07] MEDS: SPIRONOLACTONE 25 MG TAB PO SCH (20:55)
[2019-04-07] MEDS: ATORVASTATIN 40 MG TAB PO SCH (20:55)
[2019-04-07] MEDS: ENOXAPARIN INJ 40 MG/0.4 ML SYR SQ SCH (20:56)
[2019-04-07] MEDS: CITALOPRAM 40 MG TAB PO SCH (20:57)
[2019-04-08] MEDS: FUROSEMIDE 40 MG in SYRINGE 0 ML IV SCH ×3 (05:33→21:08)
[2019-04-08 06:25] LABS: Hematocrit (blood only) 35.7 % (37-47); Hemoglobin 11.2 g/dL (12.0-16.0); Mean Corpuscular Hgb Conc 31.4 g/dL (32-36); Mean Corpuscular Volume 76.1 fL (80-100); Mean Platelet Volume 9.2 fL (7.4-10.4); Platelet Count 199 K/uL (130-400); RDW Coefficient of Variation 19.7 % (11.5-14.5); RDW Standard Deviation 54.4 fL (36.4-46.3); Red Blood Count 4.69 M/uL (4.2-5.4)
[2019-04-08 06:36] LABS: Partial Thromboplastin Ratio 1.1; Partial Thromboplastin Time 29.4 Seconds (21.0-31.0)
[2019-04-08 07:04] LABS: BUN Creatinine Ratio 23.4 (10-20); Calcium 8.9 mg/dl (8.5-10.1); Est GFR (African American) 52.7; Est GFR (Non-African American) 45.5; Potassium 4.4 mmol/L (3.5-5.1)
[2019-04-08] MEDS: ALBUMIN 25% 50 ML IV SCH ×2 (07:45→08:56)
[2019-04-08] MEDS: PANTOprazole 40 MG TAB PO SCH (08:59)
[2019-04-08] MEDS: FERROUS GLUCONATE 324 MG TAB PO SCH ×3 (08:59→21:09)
[2019-04-08] MEDS: METOPROLOL SUCC 25MG EXT REL TAB PO SCH (08:59)
[2019-04-08] MEDS: BUDESONIDE/FORMOTEROL FUMARATE 160/4.5 60 PUFFS/INHALER INH SCH ×2 (08:59→21:08)
[2019-04-08] MEDS: MULTIVITAMIN TAB PO SCH (08:59)
[2019-04-08] MEDS: FOLIC ACID 1 MG TAB PO SCH (09:00)
[2019-04-08] MEDS: ASPIRIN 81 MG ECTAB PO SCH (09:00)
[2019-04-08] MEDS: GABAPENTIN 800 MG TAB PO SCH ×3 (09:00→21:09)
[2019-04-08] MEDS: VITAMIN B COMPLEX TAB PO SCH (09:00)
[2019-04-08] MEDS: MAGNESIUM OXIDE 400 MG TAB PO SCH (09:00)
[2019-04-08] MEDS: SPIRONOLACTONE 25 MG TAB PO SCH ×2 (09:01→21:10)
--- NOTE | 2019-04-08 09:16 | Gastroenterology Progress Note ---
Date of Service April 08, 2019 Assessment & Plan (1) Cirrhosis: 68 year old female with T2DM, CKD, COPD, CAD, CHF and cirrhosis admitted w/ chest pain, anasarca and abdominal ascites despite outpatient diuretic titration. Will arrange diagnostic paracentesis once clinically able (was on heparin gtt) to evaluate etiology of ascites. S/P paracentesis, no SBP, low SAAG w/ high total protein. Continues to have abd distention, additional fluid. Mild bump in [employer] overnight. To go for para Ascites - ECHO completed - Hepatic Duplex completed - Follow fluid studies - Low NA diet, less than 2G - Would continue diuresis, GI goal lasix 40 aldactone 100 - Repeat para around 11a w/ albumin pre and post Cirrhosis Management - No ETOH - Less than 2G tylenol if using - EGD in 2020 - HCC screen w/ imaging and AFP every 6 months - MELD labs every 6 months - Continued OP hepatology follow up. GI to sign off. Thank you for allowing us to participate in the care of this patient. Please call with any acute changes, questions or concerns. Please see addendum below with additional recommendation from my supervising physician. Supervising Physician Co-Signing Physician Notes I have discussed the patient's management with Gay. Please refer to the nurse practitioner's note for the documented findings and plan of care. Patient with radiologic evidence of liver cirrhosis and splenomegaly with labs findings all suggestive of liver cirrhosis, etiology unclear. The most accurate way to diagnose her is a transjugular liver Bx. Unfortunately, ACEi-ARB are contraindicated in liver cirrhosis. Continue diuresis and cardiac optimization. Recall GI if needed. Subjective Pt was seen and evaluated, chart reviewed. Bump in [employer] overnight. No complaints. No abd pain. Going for repeat para this AM. Albumin infusing. No black/bloody stools. No fever, chills, CP, SOB. Is frustrated about her medical conditions, feels overwhelmed, concerned if she will be able to make it back to work. Review of Systems Constitutional: no fever, no chills, no body aches and no weakness Respiratory: no cough, no dyspnea, no pain on inspiration and no wheezing Cardiovascular: no chest pain, no radiating jaw, neck or arm pain, no dyspnea on exertion and no palpitations Gastrointestinal: + bloating; no abdominal pain, no belching, no heartburn, no blood in stools and no melena Physical Exam Constitutional: WD/WN, vitals as above Respiratory: normal respiratory effort Auscultation: no crackles Cardiovascular: Rate/Rhythm: regular rate and regular rhythm Gastrointestinal (Abdomen): Inspection/Auscultation: + abdomen distended and normal bowel sounds Percussion/Palpation: abdomen soft; abdomen nontender, no guarding and abdomen not rigid Skin: no rashes, warm and dry Results & Data Vital Signs (Past 12 Hours) Vital Signs Temp Pulse Pulse Resp BP BP Pulse Ox 04/08/19 08:45 36.8 C 57 L 18 111/57 L 96 04/08/19 07:27 36.7 C 56 L 20 111/66 97 04/08/19 03:38 37.3 C 66 18 118/66 95 04/08/19 00:54 62 04/07/19 23:15 37.1 C 62 18 121/65 92 Laboratory Results 04/08/19 04/08/19 04/08/19 Range/Units 07:02 06:14 06:14 WBC 5.50 (4.8-10.8) K/uL RBC 4.69 (4.2-5.4) M/uL Hgb 11.2 L (12.0-16.0) g/dL Hct 35.7 L (37-47) % MCV 76.1 L (80-100) fL MCH 23.9 L (25-34) pg MCHC 31.4 L (32-36) g/dL RDW Std Deviation 54.4 H (36.4-46.3) fL RDW Coeff of Tiburcio 19.7 H (11.5-14.5) % Plt Count 199 (130-400) K/uL MPV 9.2 (7.4-10.4) fL APTT (21.0-31.0) Seconds PTT Ratio Sodium 138 (136-145) mmol/L Potassium 4.4 D (3.5-5.1) mmol/L Chloride 96 L (98-107) mmol/L Carbon Dioxide 39 H (21-32) mmol/L Anion Gap 3.0 (3-11) BUN 29 H (7-18) mg/dl Creatinine 1.22 H (0.6-1.2) mg/dl Est Cr Clr Drug Dosing 43.0 ml/min Est GFR ( Amer) 52.7 Est GFR (Non-Af Amer) 45.5 BUN/Creatinine Ratio 23.4 H (10-20) Glucose 108 H (70-99) mg/dl POC Glucose 125 H (70-99) Calcium 8.9 (8.5-10.1) mg/dl Magnesium (1.8-2.4) mg/dl 04/08/19 04/07/19 04/07/19 Range/Units 06:14 20:08 15:57 WBC (4.8-10.8) K/uL RBC (4.2-5.4) M/uL Hgb (12.0-16.0) g/dL Hct (37-47) % MCV (80-100) fL MCH (25-34) pg MCHC (32-36) g/dL RDW Std Deviation (36.4-46.3) fL RDW Coeff of Tiburcio (11.5-14.5) % Plt Count (130-400) K/uL MPV (7.4-10.4) fL APTT 29.4 (21.0-31.0) Seconds PTT Ratio 1.1 Sodium (136-145) mmol/L Potassium (3.5-5.1) mmol/L Chloride (98-107) mmol/L Carbon Dioxide (21-32) mmol/L Anion Gap (3-11) BUN (7-18) mg/dl Creatinine (0.6-1.2) mg/dl Est Cr Clr Drug Dosing ml/min Est GFR ( Amer) Est GFR (Non-Af Amer) BUN/Creatinine Ratio (10-20) Glucose (70-99) mg/dl POC Glucose 141 H 116 H (70-99) Calcium (8.5-10.1) mg/dl Magnesium (1.8-2.4) mg/dl 04/07/19 04/07/19 04/07/19 Range/Units 11:25 10:55 10:55 WBC (4.8-10.8) K/uL RBC (4.2-5.4) M/uL Hgb (12.0-16.0) g/dL Hct (37-47) % MCV (80-100) fL MCH (25-34) pg MCHC (32-36) g/dL RDW Std Deviation (36.4-46.3) fL RDW Coeff of Tiburcio (11.5-14.5) % Plt Count (130-400) K/uL MPV (7.4-10.4) fL APTT (21.0-31.0) Seconds PTT Ratio Sodium 136 (136-145) mmol/L Potassium 3.8 (3.5-5.1) mmol/L Chloride 94 L (98-107) mmol/L Carbon Dioxide 37 H (21-32) mmol/L Anion Gap 5.0 (3-11) BUN 25 H (7-18) mg/dl Creatinine 1.09 (0.6-1.2) mg/dl Est Cr Clr Drug Dosing 48.1 ml/min Est GFR ( Amer) 60.4 Est GFR (Non-Af Amer) 52.1 BUN/Creatinine Ratio 22.7 H (10-20) Glucose 109 H (70-99) mg/dl POC Glucose 111 H (70-99) Calcium 8.4 L (8.5-10.1) mg/dl Magnesium Cancelled 2.1 (1.8-2.4) mg/dl
--- NOTE | 2019-04-08 11:04 | Cardiology Progress Note ---
Date of Service April 08, 2019 Assessment & Plan (1) Ischemic cardiomyopathy: remains significantly volume overloaded paracentesis reportedly removed 3L but still with significant ascites repeat planned for today will cont IV lasix q8 for now and reassess volume status clinically follow and replete lytes as necessary cont metoprolol losartan held ideally from a cardiac standpoint would like maximize beta blockade, afterload reduction with ARB, add Entresto, unfortunately, the diagnosis of cirrhosis significantly complicates medical management and the need to increase hepatic perfusion will hold off on ARB and entresto for now will not uptitrate beta alma will increase spironolactone (2) Cirrhosis: discussed with GI colleagues does carry hx of cirrhosis spironolactone to be increased to 100mg daily will defer further medical management to GI (3) CKD (chronic kidney disease), stage III: initially improved but a little higher creat today, but still improved over baseline ?hepatorenal syndrome will follow renal function closely with continued diuresis would consider nephrology recommendations if function further declines Subjective Pt seen and examined, states that she's feeling much better today. Had significant leakage from paracentesis site but now resolved. SOB has resolved. Denies cp, palpitations, lightheadedness or dizziness. Still with abdominal distention and LE edema. Notes right thigh to be tight. tele reviewed: Review of Systems Review of Systems: All systems reviewed & are unremarkable except as noted in HPI & below Physical Exam Physical Exam: General: Awake, alert and oriented x 3. No acute distress. HEENT: Normocephalic, atraumatic. Pupils equal, round and reactive to light and accommodation. Extraocular muscles are intact. Anicteric sclera. Moist mucous membranes. Neck: No JVD. No bruit. Cardiovascular: Regular. Positive S-4. Normal S-1 and S-2. No S-3. No murmurs or rubs. Pulmonary: Clear to auscultation B/L. No rales, rhonchi or wheezing Abdomen: Abdomen distended, +fluid wave, yet improved from yesterday. Diffuesly tender Extremities: No clubbing, cyanosis or edema. +2 pedal pulses bilaterally. Skin: Warm and dry. Results & Data Vital Signs (Past 12 Hours) Vital Signs Temp Pulse Pulse Resp BP BP Pulse Ox 04/08/19 10:47 36.7 C 59 L 18 112/64 99 05/23/19 10:00 36.6 C 58 L 18 107/57 L 94 04/08/19 08:45 36.8 C 57 L 18 111/57 L 96 04/08/19 07:27 36.7 C 56 L 20 111/66 97 04/08/19 03:38 37.3 C 66 18 118/66 95 04/08/19 00:54 62 04/07/19 23:15 37.1 C 62 18 121/65 92
--- NOTE | 2019-04-08 13:00 | Ultrasound Report ---
US paracentesis abd w/image CLINICAL HISTORY: 68 years-old Female presenting with ascites. COMPARISON: 04/06/2019. PROCEDURE: The procedure and its risks, benefits, and alternatives were discussed with the patient, and written informed consent was obtained. A timeout was performed to confirm patient identity. Limited ultrasound of the abdomen was performed to determine a safe needle entry site, and the site w as marker for paracentesis. The left lower quadrant was prepped and draped in the usual aseptic fashion. 1% Lidocaine was used fo r local anesthesia. Insertion of a paracentesis needle-sheath was attempted into the peritoneal space using ultrasound gu idance. However, the volume of ascites and location of bowel did not allow for safe entry of the velasquez th through the peritoneum. Therefore, the sheath was removed, and a 20 gauge spinal needle was used t o access the peritoneum cavity for paracentesis. A total of 60 mL of clear yellow ascites was aspirat ed. The needly was removed, and a dressing applied. The patient tolerated the procedure well. No immediate complications. IMPRESSION: Ultrasound-guided diagnostic paracentesis with aspiration of 60 mL of ascites. Electronically signed by: Mina Jackson M.D. 04/08/2019 12:59 PM
[2019-04-08 13:39] LABS: Albumin Peritoneal Fluid 1.5 g/dl; Total Protein Peritoneal Fluid 3.8 g/dl
[2019-04-08] MEDS ORDERED: ALBUMIN 25% 50 ML IV SCH ×2 (14:30)
--- NOTE | 2019-04-08 18:06 | Hospitalist Progress Note ---
Date of Service April 08, 2019 Assessment & Plan (1) Cirrhosis: Ascites Labs suggestive of cirrhosis S/P Paracentesis ascitic fluid cultures: No growth to date Continue low salt diet Appreciate GI Input--GI goal diuretics is lasix 40mg and aldactone 100mg Continue IV diuretic therapy for now No JUAN JOSE/ARB due to cirrhosis HCC screen w/ imaging and AFP every 6 months; MELD labs every 6 months Needs hepatology follow-up as outpatient Will need transjugular liver Bx to diagnose accurately as per GI (2) Chronic combined systolic and diastolic CHF (congestive heart failure): Ischemic cardiomyopathy Continue lasix 40mg Q8H Continue spironolactone 25 mg twice daily low sodium diet, fluid restriction Monitor Daily weight Appreciate Cardiology Input Wean off Oxygen as able (3) Ascites: Management as above (4) Chest pain: h/o CAD and PAD Likely anginal pain, no ACS Continue medical management (5) Elevated troponin: Likely related to demand ischemia in the setting of anasarca and congestion (6) Pericardial effusion: No evidence of tamponade on echo (7) CAD (coronary artery disease): continue current meds (8) CKD (chronic kidney disease), stage III: Cr at baseline Monitor renal function (9) DM type 2 (diabetes mellitus, type 2): Hgb A1c 6.1 12/2018 Currently not on any medical therapy Monitor BSG's (10) COPD (chronic obstructive pulmonary disease): no signs of acute exacerbation Continue home inhalers (11) DVT prophylaxis: Lovenox SQ Code Status DNR/DNI Disposition: To be determined Subjective Patient is seen and examined at bedside Shortness of breath is much improved Still has significant leg edema Still has some abdominal discomfort Planned for repeat paracentesis today Plan to wean off oxygen as able Review of Systems Review of Systems: All systems reviewed & are unremarkable except as noted in HPI & below Physical Exam Physical Exam: Physical Exam: Vitals signs as noted above General Appearance:Obese, no apparent distress Head: normocephalic, Atraumatic Eyes: normal inspection, EOMI Neck: supple, Trachea midline Respiratory/Chest: Normal breath sounds, CTA Cardiovascular: S1, S2, + murmur Abdomen/GI:Soft, Mild tender, +Ascites, Bowel sounds present Extremities/Musculoskelatal:normal inspection, Left BKA, R LE 1+ edema Neurologic/Psych:AAOX3, grossly no focal neurological deficits Skin: normal color, warm Results & Data Vital Signs (Past 12 Hours) Vital Signs Temp Pulse Pulse Resp BP Pulse Ox 04/08/19 16:00 63 04/08/19 15:04 37.0 C 56 L 20 114/59 L 95 04/08/19 10:47 36.7 C 59 L 18 112/64 99 04/08/19 10:00 36.6 C 58 L 18 107/57 L 94 04/08/19 08:45 36.8 C 57 L 18 111/57 L 96 04/08/19 08:00 61 04/08/19 07:27 36.7 C 56 L 20 111/66 97 Laboratory Results Short CBC 04/08/19 Range/Units 06:14 WBC 5.50 (4.8-10.8) K/uL Hgb 11.2 L (12.0-16.0) g/dL Hct 35.7 L (37-47) % Plt Count 199 (130-400) K/uL BMP 04/08/19 06:14 Sodium 138 Potassium 4.4 D Chloride 96 L Carbon Dioxide 39 H BUN 29 H Creatinine 1.22 H Glucose 108 H Calcium 8.9
[2019-04-08] MEDS: CITALOPRAM 40 MG TAB PO SCH (21:09)
[2019-04-08] MEDS: ATORVASTATIN 40 MG TAB PO SCH (21:09)
[2019-04-08] MEDS: ENOXAPARIN INJ 40 MG/0.4 ML SYR SQ SCH (21:10)
[2019-04-09] MEDS: FUROSEMIDE 40 MG in SYRINGE 0 ML IV SCH ×3 (06:06→20:52)
[2019-04-09 06:48] LABS: Partial Thromboplastin Ratio 1.1; Partial Thromboplastin Time 28.7 Seconds (21.0-31.0)
[2019-04-09 07:08] LABS: BUN Creatinine Ratio 25.7 (10-20); Calcium 8.5 mg/dl (8.5-10.1); Creatinine Clr Calc Pharmacy 44.1 ml/min; Est GFR (African American) 55.4; Est GFR (Non-African American) 47.8; Potassium 4.2 mmol/L (3.5-5.1)
[2019-04-09] MEDS: MULTIVITAMIN TAB PO SCH (08:57)
[2019-04-09] MEDS: METOPROLOL SUCC 25MG EXT REL TAB PO SCH (08:57)
[2019-04-09] MEDS: ASPIRIN 81 MG ECTAB PO SCH (08:57)
[2019-04-09] MEDS: GABAPENTIN 800 MG TAB PO SCH ×3 (08:57→20:53)
[2019-04-09] MEDS: VITAMIN B COMPLEX TAB PO SCH (08:57)
[2019-04-09] MEDS: FERROUS GLUCONATE 324 MG TAB PO SCH ×3 (08:57→20:52)
[2019-04-09] MEDS: PANTOprazole 40 MG TAB PO SCH (08:57)
[2019-04-09] MEDS: FOLIC ACID 1 MG TAB PO SCH (08:57)
[2019-04-09] MEDS: BUDESONIDE/FORMOTEROL FUMARATE 160/4.5 60 PUFFS/INHALER INH SCH ×2 (08:58→20:53)
[2019-04-09] MEDS: SPIRONOLACTONE 25 MG TAB PO SCH ×2 (08:58→20:53)
[2019-04-09] MEDS: MAGNESIUM OXIDE 400 MG TAB PO SCH (08:58)
--- NOTE | 2019-04-09 09:43 | Cardiology Progress Note ---
Date of Service April 09, 2019 Assessment & Plan (1) Ischemic cardiomyopathy: remains significantly volume overloaded, do not believe volume is cardiac in nature patient reports that a second paracentesis was performed yesterday negative over 3L last night, will cont with current diuresis and follow volume status clinically follow and replete lytes as necessary cont metoprolol losartan held ideally from a cardiac standpoint would like maximize beta blockade, afterload reduction with ARB, add Entresto, unfortunately, the diagnosis of cirrhosis significantly complicates medical management and the need to increase hepatic perfusion will hold off on ARB and entresto for now will not uptitrate beta alma cont spironolactone (2) Cirrhosis: discussed with GI colleagues does carry hx of cirrhosis spironolactone to be increased to 100mg daily will defer further medical management to GI (3) CKD (chronic kidney disease), stage III: initially improved but a little higher creat today, but still improved over baseline ?hepatorenal syndrome will follow renal function closely with continued diuresis would consider nephrology recommendations if function further declines Subjective Pt seen and examined, states that she's still significantly distended, improved from admission but not at baseline. Denies cp, sob, palpitations, lightheadedness or dizziness. Tele reviewed: sinus rhythm without arrhythmia Review of Systems Review of Systems: All systems reviewed & are unremarkable except as noted in HPI & below Physical Exam Physical Exam: General: Awake, alert and oriented x 3. No acute distress. HEENT: Normocephalic, atraumatic. Pupils equal, round and reactive to light and accommodation. Extraocular muscles are intact. Anicteric sclera. Moist mucous membranes. Neck: No JVD. No bruit. Cardiovascular: Regular. Positive S-4. Normal S-1 and S-2. No S-3. No murmurs or rubs. Pulmonary: Clear to auscultation B/L. No rales, rhonchi or wheezing Abdomen: Distended, positive fluid wave Extremities: No clubbing, cyanosis or edema. +2 pedal pulses bilaterally. Skin: Warm and dry. Results & Data Vital Signs (Past 12 Hours) Vital Signs Temp Pulse Pulse Resp BP BP Pulse Ox 04/09/19 07:22 37.4 C 62 20 118/71 94 04/09/19 03:35 37.4 C 77 18 118/56 L 91 04/08/19 23:54 64 04/08/19 23:52 37.0 C 67 18 108/62 91
--- NOTE | 2019-04-09 15:53 | Hospitalist Progress Note ---
Date of Service April 09, 2019 Assessment & Plan (1) Cirrhosis: Ascites Labs suggestive of cirrhosis S/P Paracentesis ascitic fluid cultures: No growth to date Continue low salt diet, fluid restriction Appreciate GI Input--GI goal diuretics is lasix 40mg and aldactone 100mg Continue IV diuretic therapy for now due to significant volume overload No JUAN JOSE/ARB due to cirrhosis HCC screen w/ imaging and AFP every 6 months; MELD labs every 6 months Needs hepatology follow-up as outpatient Will need transjugular liver Bx to diagnose accurately as per GI Continue current medications (2) Chronic combined systolic and diastolic CHF (congestive heart failure): Ischemic cardiomyopathy Continue lasix 40mg Q8H Continue spironolactone low sodium diet, fluid restriction Monitor Daily weight Appreciate Cardiology Input Wean off Oxygen as able (3) Ascites: Management as above (4) Chest pain: h/o CAD and PAD Likely anginal pain, no ACS Continue medical management (5) Elevated troponin: Likely related to demand ischemia in the setting of anasarca and congestion (6) Pericardial effusion: No evidence of tamponade on echo (7) CAD (coronary artery disease): continue current meds (8) CKD (chronic kidney disease), stage III: Cr at baseline Monitor renal function (9) DM type 2 (diabetes mellitus, type 2): Hgb A1c 6.1 12/2018 Currently not on any medical therapy Monitor BSG's (10) COPD (chronic obstructive pulmonary disease): no signs of acute exacerbation Continue home inhalers (11) DVT prophylaxis: Lovenox SQ Code Status DNR/DNI Disposition: To be determined Subjective Patient is seen and examined at bedside Subjectively feels much better today Offers no new complaints Shortness of breath improved Still has significant volume overload Plan to continue IV diuresis Review of Systems Review of Systems: All systems reviewed & are unremarkable except as noted in HPI & below Physical Exam Physical Exam: Physical Exam: Vitals signs as noted above General Appearance:Obese, no apparent distress Head: normocephalic, Atraumatic Eyes: normal inspection, EOMI Neck: supple, Trachea midline Respiratory/Chest: Normal breath sounds, Mild basal crackles Cardiovascular: S1, S2, + murmur Abdomen/GI:Soft, Bowel sounds present Extremities/Musculoskelatal:normal inspection, Left BKA, R LE 2+ edema Neurologic/Psych:AAOX3, grossly no focal neurological deficits Skin: normal color, warm Results & Data Vital Signs (Past 12 Hours) Vital Signs Temp Pulse Resp BP Pulse Ox 04/09/19 07:22 37.4 C 62 20 118/71 94 Laboratory Results BMP 04/09/19 06:01 Sodium 136 Potassium 4.2 Chloride 93 L Carbon Dioxide 40 H BUN 30 H Creatinine 1.17 Glucose 93 Calcium 8.5
[2019-04-09] MEDS: CITALOPRAM 40 MG TAB PO SCH (20:52)
[2019-04-09] MEDS: ATORVASTATIN 40 MG TAB PO SCH (20:52)
[2019-04-09] MEDS: ENOXAPARIN INJ 40 MG/0.4 ML SYR SQ SCH (20:54)
[2019-04-09] MEDS ORDERED: OXYCODONE HCL IR 5 MG TAB (IMMEDIATE RELEASE) PO PRN (22:08)
[2019-04-09] MEDS ORDERED: ACETAMINOPHEN 325 MG TAB PO PRN (22:08)
[2019-04-09] MEDS ORDERED: TRAMADOL HCL 50 MG TABLET ONE (22:15)
[2019-04-09] MEDS ORDERED: ACETAMINOPHEN 325 MG TAB ONE (22:15)
[2019-04-10] MEDS: FUROSEMIDE 40 MG in SYRINGE 0 ML IV SCH ×3 (06:19→20:10)
[2019-04-10 06:59] LABS: Partial Thromboplastin Ratio 1.1; Partial Thromboplastin Time 30.1 Seconds (21.0-31.0)
[2019-04-10 07:24] LABS: BUN Creatinine Ratio 30.9 (10-20); Calcium 8.7 mg/dl (8.5-10.1); Creatinine Clr Calc Pharmacy 44.2 ml/min; Est GFR (Non-African American) 48.3; Potassium 4.2 mmol/L (3.5-5.1)
[2019-04-10] MEDS: BUDESONIDE/FORMOTEROL FUMARATE 160/4.5 60 PUFFS/INHALER INH SCH ×2 (08:24→20:12)
[2019-04-10] MEDS: MULTIVITAMIN TAB PO SCH (08:25)
[2019-04-10] MEDS: METOPROLOL SUCC 25MG EXT REL TAB PO SCH (08:25)
[2019-04-10] MEDS: PANTOprazole 40 MG TAB PO SCH (08:25)
[2019-04-10] MEDS: FERROUS GLUCONATE 324 MG TAB PO SCH ×3 (08:25→20:10)
[2019-04-10] MEDS: GABAPENTIN 800 MG TAB PO SCH ×3 (08:26→20:10)
[2019-04-10] MEDS: MAGNESIUM OXIDE 400 MG TAB PO SCH (08:26)
[2019-04-10] MEDS: FOLIC ACID 1 MG TAB PO SCH (08:27)
[2019-04-10] MEDS: SPIRONOLACTONE 25 MG TAB PO SCH ×2 (08:27→20:11)
[2019-04-10] MEDS: ASPIRIN 81 MG ECTAB PO SCH (08:27)
[2019-04-10] MEDS: VITAMIN B COMPLEX TAB PO SCH (08:27)
--- NOTE | 2019-04-10 12:31 | Cardiology Progress Note ---
Date of Service April 10, 2019 Assessment & Plan (1) Ischemic cardiomyopathy: remains significantly volume overloaded, do not believe volume is cardiac in nature again, negative over 3L last night, will cont with current diuresis and follow volume status clinically follow and replete lytes as necessary cont metoprolol losartan held ideally from a cardiac standpoint would like maximize beta blockade, afterload reduction with ARB, add Entresto, unfortunately, the diagnosis of cirrhosis sign ificantly complicates medical management and the need to increase hepatic perfusion will hold off on ARB and entresto for now will not uptitrate beta alma cont spironolactone (2) Cirrhosis: discussed with GI colleagues does carry hx of cirrhosis spironolactone to be increased to 100mg daily will defer further medical management to GI (3) CKD (chronic kidney disease), stage III: initially improved but a little higher creat today, but still improved over baseline ?hepatorenal syndrome will follow renal function closely with continued diuresis would consider nephrology recommendations if function further declines bicarb level rising, concerned for metabolic acidosis with ongoing diuresis would benefit from continued spironolactone and lasix, doubt diamox would be of benefit may need to ask nephrology colleagues to evaluate if continues to trend up Subjective Pt seen and examined, states that she still has significant abdominal distention but LE edema improving. Denies cp, sob, palpitations, lightheadedness or dizziness. tele reviewed: sinus rhythm without arrhythmia or significant ectopy. Review of Systems Review of Systems: All systems reviewed & are unremarkable except as noted in HPI & below Physical Exam Physical Exam: General: Awake, alert and oriented x 3. No acute distress. HEENT: Normocephalic, atraumatic. Pupils equal, round and reactive to light and accommodation. Extraocular muscles are intact. Anicteric sclera. Moist mucous membranes. Neck: No JVD. No bruit. Cardiovascular: Regular. Positive S-4. Normal S-1 and S-2. No S-3. No murmurs or rubs. Pulmonary: Clear to auscultation B/L. No rales, rhonchi or wheezing Abdomen: distended with continued fluid wave, unable to appreciate any organomegaly. Extremities: No clubbing, cyanosis or edema. +2 pedal pulses bilaterally. Skin: Warm and dry. Results & Data Vital Signs (Past 12 Hours) Vital Signs Temp Pulse Resp BP BP Pulse Ox 04/10/19 11:36 37.1 C 58 L 20 111/59 L 95 04/10/19 07:45 36.5 C 58 L 18 106/66 100 04/10/19 04:05 36.7 C 57 L 18 111/63 95
[2019-04-10] MEDS: TRAMADOL HCL 50 MG TABLET PO PRN (14:06)
--- NOTE | 2019-04-10 14:30 | Hospitalist Progress Note ---
Date of Service April 10, 2019 Assessment & Plan (1) Cirrhosis: Ascites Labs suggestive of cirrhosis S/P Paracentesis ascitic fluid cultures: No growth to date Continue low salt diet, fluid restriction Appreciate GI Input--GI goal diuretics is lasix 40mg and aldactone 100mg Continue IV diuretic therapy for now due to significant volume overload No JUAN JOSE/ARB due to cirrhosis HCC screen w/ imaging and AFP every 6 months; MELD labs every 6 months Needs hepatology follow-up as outpatient Will need transjugular liver Bx to diagnose accurately as per GI Developing metabolic alkalosis likely due to diuresis Consider nephrology input if continues to worsen Continue diuresis with IV Lasix (2) Chronic combined systolic and diastolic CHF (congestive heart failure): Ischemic cardiomyopathy Continue lasix 40mg Q8H Continue spironolactone low sodium diet, fluid restriction Monitor Daily weight Appreciate Cardiology Input Wean off Oxygen as able (3) Ascites: Management as above (4) Chest pain: h/o CAD and PAD Likely anginal pain, no ACS Continue medical management (5) Elevated troponin: Likely related to demand ischemia in the setting of anasarca and congestion (6) Pericardial effusion: No evidence of tamponade on echo (7) CAD (coronary artery disease): continue current meds (8) CKD (chronic kidney disease), stage III: Cr at baseline Monitor renal function (9) DM type 2 (diabetes mellitus, type 2): Hgb A1c 6.1 12/2018 Currently not on any medical therapy Monitor BSG's (10) COPD (chronic obstructive pulmonary disease): no signs of acute exacerbation Continue home inhalers (11) DVT prophylaxis: Lovenox SQ Code Status DNR/DNI Disposition: To be determined Subjective Patient is seen and examined at bedside Reports mild abdominal pain today Still has significant abdominal distention lower extremity edema slowly improving Denies chest pain, SOB, dizziness Diuresing well Bicarbonate levels elevated Review of Systems Review of Systems: All systems reviewed & are unremarkable except as noted in HPI & below Physical Exam Physical Exam: Physical Exam: Vitals signs as noted above General Appearance:Obese, no apparent distress Head: normocephalic, Atraumatic Eyes: normal inspection, EOMI Neck: supple, Trachea midline Respiratory/Chest: Normal breath sounds, Mild basal crackles Cardiovascular: S1, S2, + murmur Abdomen/GI:Soft, Bowel sounds present Extremities/Musculoskelatal:normal inspection, Left BKA, R LE 2+ edema Neurologic/Psych:AAOX3, grossly no focal neurological deficits Skin: normal color, warm Results & Data Vital Signs (Past 12 Hours) Vital Signs Temp Pulse Resp BP BP Pulse Ox 04/10/19 11:36 37.1 C 58 L 20 111/59 L 95 04/10/19 07:45 36.5 C 58 L 18 106/66 100 04/10/19 04:05 36.7 C 57 L 18 111/63 95 Laboratory Results [facility] 04/10/19 06:21 Sodium 137 Potassium 4.2 Chloride 92 L Carbon Dioxide 41 H* BUN 36 H Creatinine 1.16 Glucose 98 Calcium 8.7
[2019-04-10] MEDS: ATORVASTATIN 40 MG TAB PO SCH (20:09)
[2019-04-10] MEDS: CITALOPRAM 40 MG TAB PO SCH (20:10)
[2019-04-10] MEDS: ENOXAPARIN INJ 40 MG/0.4 ML SYR SQ SCH (20:11)
[2019-04-11 05:39] LABS: Hemoglobin 10.7 g/dL (12.0-16.0); Mean Corpuscular Hgb Conc 30.6 g/dL (32-36); Mean Corpuscular Volume 77.1 fL (80-100); Mean Platelet Volume 9.8 fL (7.4-10.4); Platelet Count 187 K/uL (130-400); RDW Coefficient of Variation 19.6 % (11.5-14.5); Red Blood Count 4.54 M/uL (4.2-5.4); White Blood Count 4.66 K/uL (4.8-10.8)
[2019-04-11 05:50] LABS: Partial Thromboplastin Ratio 1.1; Partial Thromboplastin Time 28.8 Seconds (21.0-31.0)
[2019-04-11] MEDS: FUROSEMIDE 40 MG in SYRINGE 0 ML IV SCH ×2 (06:00→14:08)
[2019-04-11 06:19] LABS: BUN Creatinine Ratio 32.8 (10-20); Calcium 8.5 mg/dl (8.5-10.1); Creatinine Clr Calc Pharmacy 46.8 ml/min; Est GFR (African American) 59.7; Est GFR (Non-African American) 51.5; Potassium 4.2 mmol/L (3.5-5.1)
[2019-04-11] MEDS: BUDESONIDE/FORMOTEROL FUMARATE 160/4.5 60 PUFFS/INHALER INH SCH ×2 (08:12→21:10)
[2019-04-11] MEDS: PANTOprazole 40 MG TAB PO SCH (08:13)
[2019-04-11] MEDS: MULTIVITAMIN TAB PO SCH (08:13)
[2019-04-11] MEDS: FERROUS GLUCONATE 324 MG TAB PO SCH ×3 (08:13→21:10)
[2019-04-11] MEDS: METOPROLOL SUCC 25MG EXT REL TAB PO SCH (08:13)
[2019-04-11] MEDS: VITAMIN B COMPLEX TAB PO SCH (08:14)
[2019-04-11] MEDS: SPIRONOLACTONE 25 MG TAB PO SCH (08:14)
[2019-04-11] MEDS: MAGNESIUM OXIDE 400 MG TAB PO SCH (08:14)
[2019-04-11] MEDS: FOLIC ACID 1 MG TAB PO SCH (08:14)
[2019-04-11] MEDS: ASPIRIN 81 MG ECTAB PO SCH (08:14)
[2019-04-11] MEDS: GABAPENTIN 800 MG TAB PO SCH ×3 (08:15→21:11)
--- NOTE | 2019-04-11 10:51 | Cardiology Progress Note ---
Date of Service April 11, 2019 Assessment & Plan (1) Ischemic cardiomyopathy: remains significantly volume overloaded, do not believe volume is cardiac in nature output decreasing overnight would recommend another trial of albumin to help mobilize ascites with continued IV diuresis follow and replete lytes as necessary cont metoprolol losartan held ideally from a cardiac standpoint would like maximize beta blockade, afterload reduction with ARB, add Entresto, unfortunately, the diagnosis of cirrhosis significantly complicates medical management and the need to increase hepatic perfusion will hold off on ARB and entresto for now will not uptitrate beta alma cont spironolactone (2) Cirrhosis: discussed with GI colleagues does carry hx of cirrhosis spironolactone to be increased to 100mg daily will defer further medical management to GI (3) CKD (chronic kidney disease), stage III: initially improved but a little higher creat today, but still improved over baseline ?hepatorenal syndrome will follow renal function closely with continued diuresis would consider nephrology recommendations if function further declines bicarb level rising, concerned for metabolic acidosis with ongoing diuresis would benefit from continued spironolactone and lasix, doubt diamox would be of benefit may need to ask nephrology colleagues to evaluate if continues to trend up Subjective Pt seen and examined, states abdomen is still distended particularly on left side. Denies cp, sob, palpitations, lightheadedness or dizziness. tele reviewed: sinus rhythm without arrhythmia. Review of Systems Review of Systems: All systems reviewed & are unremarkable except as noted in HPI & below Physical Exam Physical Exam: General: Awake, alert and oriented x 3. No acute distress. HEENT: Normocephalic, atraumatic. Pupils equal, round and reactive to light and accommodation. Extraocular muscles are intact. Anicteric sclera. Moist mucous membranes. Neck: No JVD. No bruit. Cardiovascular: Regular. Positive S-4. Normal S-1 and S-2. No S-3. No murmurs or rubs. Pulmonary: Clear to auscultation B/L. No rales, rhonchi or wheezing Abdomen: Distended but fluid wave no longer present Extremities: No clubbing, cyanosis or edema. +2 pedal pulses bilaterally. Skin: Warm and dry. Results & Data Vital Signs (Past 12 Hours) Vital Signs Temp Pulse Pulse Pulse Resp BP Pulse Ox 04/11/19 07:30 36.6 C 55 L 18 119/69 97 04/11/19 04:22 37.2 C 61 19 98/51 L 96 04/10/19 23:38 36.6 C 60 18 112/66 97 04/10/19 23:10 65
[2019-04-11] MEDS ORDERED: SPIRONOLACTONE 25 MG TAB PO ONE (10:56)
[2019-04-11] MEDS: DOCUSATE SODIUM 100 MG CAP PO SCH ×2 (11:51→21:10)
[2019-04-11] MEDS ORDERED: ALBUMIN 25% 50 ML with FUROSEMIDE 40 MG IV ONE ×2 (12:30→22:00)
[2019-04-11] MEDS: TRAMADOL HCL 50 MG TABLET PO PRN ×2 (14:11→21:40)
--- NOTE | 2019-04-11 15:08 | Hospitalist Progress Note ---
Date of Service April 11, 2019 Assessment & Plan (1) Cirrhosis: Ascites Labs suggestive of cirrhosis S/P Paracentesis ascitic fluid cultures: No growth to date Continue low salt diet, fluid restriction Appreciate GI Input--GI goal diuretics is lasix 40mg and aldactone 100mg No JUAN JOSE/ARB due to cirrhosis HCC screen w/ imaging and AFP every 6 months; MELD labs every 6 months Needs hepatology follow-up as outpatient Will need transjugular liver Bx to diagnose accurately as per GI Developing metabolic alkalosis likely due to diuresis Consider nephrology input if continues to worsen Continue diuresis with IV Lasix Will give Trial of Albumin today Aldactone dose increased to 100mg daily Monitor PRP (2) Chronic combined systolic and diastolic CHF (congestive heart failure): Ischemic cardiomyopathy Continue lasix 40mg Q8H Continue spironolactone low sodium diet, fluid restriction Monitor Daily weight Appreciate Cardiology Input Wean off Oxygen as able (3) Ascites: Management as above (4) Chest pain: h/o CAD and PAD Likely anginal pain, no ACS Continue medical management (5) Elevated troponin: Likely related to demand ischemia in the setting of anasarca and congestion (6) Pericardial effusion: No evidence of tamponade on echo (7) CAD (coronary artery disease): continue current meds (8) CKD (chronic kidney disease), stage III: Cr at baseline Monitor renal function (9) DM type 2 (diabetes mellitus, type 2): Hgb A1c 6.1 12/2018 Currently not on any medical therapy Monitor BSG's (10) COPD (chronic obstructive pulmonary disease): no signs of acute exacerbation Continue home inhalers (11) DVT prophylaxis: Lovenox SQ Code Status DNR/DNI Disposition: To be determined Subjective Patient is seen and examined at bedside Reports constipation lower extremity edema slowly improving Has significant volume overload Denies chest pain, SOB, dizziness Review of Systems Review of Systems: All systems reviewed & are unremarkable except as noted in HPI & below Physical Exam Physical Exam: Physical Exam: Vitals signs as noted above General Appearance:Obese, no apparent distress Head: normocephalic, Atraumatic Eyes: normal inspection, EOMI Neck: supple, Trachea midline Respiratory/Chest: Normal breath sounds, Mild basal crackles Cardiovascular: S1, S2, + murmur Abdomen/GI:Soft, Bowel sounds present Extremities/Musculoskelatal:normal inspection, Left BKA, R LE 2+ edema Neurologic/Psych:AAOX3, grossly no focal neurological deficits Skin: normal color, warm Results & Data Vital Signs (Past 12 Hours) Vital Signs Temp Pulse Pulse Resp BP Pulse Ox 04/11/19 11:37 36.7 C 58 L 18 114/41 L 95 04/11/19 07:30 36.6 C 55 L 18 119/69 97 04/11/19 04:22 37.2 C 61 19 98/51 L 96 Laboratory Results Short CBC 04/11/19 Range/Units 05:28 WBC 4.66 L (4.8-10.8) K/uL Hgb 10.7 L (12.0-16.0) g/dL Hct 35.0 L (37-47) % Plt Count 187 (130-400) K/uL BMP 04/11/19 05:28 Sodium 135 L Potassium 4.2 Chloride 91 L Carbon Dioxide 41 H* BUN 36 H Creatinine 1.10 Glucose 101 H Calcium 8.5
[2019-04-11] MEDS: ENOXAPARIN INJ 40 MG/0.4 ML SYR SQ SCH (21:11)
[2019-04-11] MEDS: CITALOPRAM 40 MG TAB PO SCH (21:12)
[2019-04-11] MEDS: ATORVASTATIN 40 MG TAB PO SCH (21:12)
[2019-04-12] MEDS: FUROSEMIDE 40 MG in SYRINGE 0 ML IV SCH ×3 (06:05→20:34)
[2019-04-12 06:56] LABS: Partial Thromboplastin Time 27.9 Seconds (21.0-31.0)
[2019-04-12 07:15] LABS: BUN Creatinine Ratio 29.4 (10-20); Calcium 9.7 mg/dl (8.5-10.1); Creatinine Clr Calc Pharmacy 39.6 ml/min; Est GFR (African American) 48.8; Est GFR (Non-African American) 42.1; Potassium 4.6 mmol/L (3.5-5.1)
[2019-04-12] MEDS: ASPIRIN 81 MG ECTAB PO SCH (08:02)
[2019-04-12] MEDS: METOPROLOL SUCC 25MG EXT REL TAB PO SCH (08:02)
[2019-04-12] MEDS: DOCUSATE SODIUM 100 MG CAP PO SCH ×2 (08:02→20:34)
[2019-04-12] MEDS: PANTOprazole 40 MG TAB PO SCH (08:02)
[2019-04-12] MEDS: FOLIC ACID 1 MG TAB PO SCH (08:02)
[2019-04-12] MEDS: MAGNESIUM OXIDE 400 MG TAB PO SCH (08:02)
[2019-04-12] MEDS: FERROUS GLUCONATE 324 MG TAB PO SCH ×3 (08:02→20:34)
[2019-04-12] MEDS: MULTIVITAMIN TAB PO SCH (08:02)
[2019-04-12] MEDS: GABAPENTIN 800 MG TAB PO SCH ×3 (08:02→20:33)
[2019-04-12] MEDS: BUDESONIDE/FORMOTEROL FUMARATE 160/4.5 60 PUFFS/INHALER INH SCH ×2 (08:02→20:35)
[2019-04-12] MEDS: SPIRONOLACTONE 100 MG TAB PO SCH (08:03)
[2019-04-12] MEDS: VITAMIN B COMPLEX TAB PO SCH (08:03)
--- NOTE | 2019-04-12 13:28 | Cardiology Progress Note ---
Date of Service April 12, 2019 Assessment & Plan (1) Ischemic cardiomyopathy: Mild left ventricular systolic dysfunction with ejection fraction 40 to 45% per echocardiogram. Volume overload likely on basis of cirrhosis. Continue Lasix 40 mg 3 times daily plus Aldactone. Would not titrate beta-alma further at this time. Maintain negative fluid balance. Follow electrolytes, GFR, daily weights. (2) Cirrhosis: Medical management per GI (3) CKD (chronic kidney disease), stage III: Creatinine mildly elevated today. Suspect hepatorenal syndrome. Repeat BMP in a.m. Continue diuresis. Subjective Patient seen and examined at the bedside. Complains of constipation. Denies chest pain or shortness of breath. Lower extremity edema and abdominal disten tion unchanged. Fluid balance negative approxi-1.7 L overnight. Overall fluid balance is negative greater than 11 Liters. Review of Systems Review of Systems: All systems reviewed & are unremarkable except as noted in HPI & below Physical Exam Physical Exam: General: NAD, AAO x3, well nourished. Overweight. HEENT: Normocephalic. Atraumatic. Conjunctiva pink, no scleral icterus. Neck: No carotid bruits, the carotid upstrokes are brisk. No JVD. No HJR Heart: Regular normal S-1 and S-2 no S-3 or S-4 gallop. No murmurs or rub appreciated. PMI is not displaced. No RV heave. Lungs: Clear bilateral without rales , rhonchi, or wheeze. Abdomen:+ Distention. No rebound or guarding. Normal bowel sounds. No fluid wave appreciated. Extremities: 2+ right lower extremity pitting pretibial edema. Left lower extremity BKA. Pulses: radial=2/4. Neuro: Cranial nerves grossly intact. No focal motor deficit. Results & Data Vital Signs (Past 12 Hours) Vital Signs Temp Pulse Resp BP Pulse Ox 04/12/19 11:21 36.9 C 54 L 18 116/65 91 04/12/19 07:10 36.7 C 56 L 18 110/57 L 100 04/12/19 04:00 36.7 C 56 L 18 118/67 99 Laboratory Results Laboratory Results - last 24 hr 04/11/19 04/11/19 04/12/19 16:19 20:21 06:19 APTT 27.9 PTT Ratio 1.0 Sodium Potassium Chloride Carbon Dioxide Anion Gap BUN Creatinine Est Cr Clr Drug Dosing Est GFR ( Amer) Est GFR (Non-Af Amer) BUN/Creatinine Ratio Glucose POC Glucose 123 H 116 H Calcium 04/12/19 04/12/19 04/12/19 06:19 07:26 11:33 APTT PTT Ratio Sodium 136 Potassium 4.6 Chloride 93 L Carbon Dioxide 39 H Anion Gap 4.0 BUN 38 H Creatinine 1.30 H Est Cr Clr Drug Dosing 39.6 Est GFR ( Amer) 48.8 Est GFR (Non-Af Amer) 42.1 BUN/Creatinine Ratio 29.4 H Glucose 108 H POC Glucose 107 H 123 H Calcium 9.7
[2019-04-12] MEDS: POLYETHYLENE (MIRALAX) 17 GM PACK PO PRN (13:44)
--- NOTE | 2019-04-12 13:49 | Ultrasound Report ---
Study: Limited survey ultrasound HISTORY: Ascites: Findings: Limited abdominal and pelvic ascites IMPRESSION: Limited abdominal and pelvic ascites. Electronically signed by: John Helm M.D. 04/12/2019 1:47 PM
--- NOTE | 2019-04-12 17:56 | Hospitalist Progress Note ---
Date of Service April 12, 2019 Assessment & Plan (1) Cirrhosis: Ascites Labs suggestive of cirrhosis S/P Paracentesis ascitic fluid cultures: No growth to date Continue low salt diet, fluid restriction Appreciate GI Input--GI goal diuretics is lasix 40mg and aldactone 100mg No JUAN JOSE/ARB due to cirrhosis HCC screen w/ imaging and AFP every 6 months; MELD labs every 6 months Needs hepatology follow-up as outpatient Received IV albumin Will need transjugular liver Bx to diagnose accurately as per GI Developing metabolic alkalosis likely due to diuresis, Cr levels slight worsened Consider nephrology input if continues to worsen Continue diuresis with IV Lasix, Aldactone Monitor PRP, I/Os, daily weight Repeat Abd USD: limited Ascites (2) Chronic combined systolic and diastolic CHF (congestive heart failure): Ischemic cardiomyopathy Continue lasix 40mg Q8H Continue spironolactone low sodium diet, fluid restriction Monitor Daily weight Appreciate Cardiology Input Wean off Oxygen as able Saturating low 90s on room air (3) Ascites: Management as above (4) Chest pain: h/o CAD and PAD Likely anginal pain, no ACS Continue medical management (5) Elevated troponin: Likely related to demand ischemia in the setting of anasarca and congestion (6) Pericardial effusion: No evidence of tamponade on echo (7) CAD (coronary artery disease): continue current meds (8) CKD (chronic kidney disease), stage III: Cr at baseline Monitor renal function (9) DM type 2 (diabetes mellitus, type 2): Hgb A1c 6.1 12/2018 Currently not on any medical therapy Monitor BSG's (10) COPD (chronic obstructive pulmonary disease): no signs of acute exacerbation Continue home inhalers (11) DVT prophylaxis: Lovenox SQ Code Status DNR/DNI Disposition: To be determined Subjective Patient is seen and examined at bedside Reports mild abdominal pain today Abd USD shows limited ascites Has abd distention and lower extremity edema Denies chest pain, SOB, dizziness Has constipation Review of Systems Review of Systems: All systems reviewed & are unremarkable except as noted in HPI & below Physical Exam Physical Exam: Physical Exam: Vitals signs as noted above General Appearance:Obese, no apparent distress Head: normocephalic, Atraumatic Eyes: normal inspection, EOMI Neck: supple, Trachea midline Respiratory/Chest: Normal breath sounds, CTA Cardiovascular: S1, S2, + murmur Abdomen/GI:Soft, Bowel sounds present, Mild tender, distended Extremities/Musculoskelatal:normal inspection, Left BKA, R LE 2+ edema Neurologic/Psych:AAOX3, grossly no focal neurological deficits Skin: normal color, warm Results & Data Vital Signs (Past 12 Hours) Vital Signs Temp Pulse Resp BP Pulse Ox 04/12/19 15:34 37.1 C 57 L 18 117/66 90 04/12/19 11:21 36.9 C 54 L 18 116/65 91 04/12/19 07:10 36.7 C 56 L 18 110/57 L 100 Laboratory Results [facility] 04/12/19 06:19 Sodium 136 Potassium 4.6 Chloride 93 L Carbon Dioxide 39 H BUN 38 H Creatinine 1.30 H Glucose 108 H Calcium 9.7
[2019-04-12] MEDS: ATORVASTATIN 40 MG TAB PO SCH (20:33)
[2019-04-12] MEDS: ENOXAPARIN INJ 40 MG/0.4 ML SYR SQ SCH (20:33)
[2019-04-12] MEDS: CITALOPRAM 40 MG TAB PO SCH (20:34)
[2019-04-13] MEDS: FUROSEMIDE 40 MG in SYRINGE 0 ML IV SCH (05:53)
[2019-04-13 06:57] LABS: BUN Creatinine Ratio 32.6 (10-20); Calcium 8.6 mg/dl (8.5-10.1); Est GFR (African American) 43.5; Est GFR (Non-African American) 37.5
[2019-04-13] MEDS: POLYETHYLENE (MIRALAX) 17 GM PACK PO PRN (08:16)
--- NOTE | 2019-04-13 09:03 | Cardiology Progress Note ---
Date of Service April 13, 2019 Assessment & Plan (1) Ischemic cardiomyopathy: volume overload is not cardiac in nature now intravascularly volume depleted with prerenal azotemia will d/c IV lasix and start po cont spironolactone as per GI cont asa, atorvastatin and metoprolol again, cirrhosis precludes me from optimizing medical management will not restart arb cannot use Entresto ok to d/c to tele or to home from cardiac standpoint (2) Cirrhosis: s/p paracentesis still with abdominal distention and discomfort will defer to GI Subjective Pt seen and examined, states that she still has RUQ discomfort and that abdomen has not returned to baseline. Improved from admission though. Denies cp, sob, palpitations, lightheadedness or dizziness. tele reviewed: sinus with occasional ectopy Review of Systems Review of Systems: All systems reviewed & are unremarkable except as noted in HPI & below Physical Exam Physical Exam: General: Awake, alert and oriented x 3. No acute distress. HEENT: Normocephalic, atraumatic. Pupils equal, round and reactive to light and accommodation. Extraocular muscles are intact. Anicteric sclera. Moist mucous membranes. Neck: No JVD. No bruit. Cardiovascular: Regular. Positive S-4. Normal S-1 and S-2. No S-3. No murmurs or rubs. Pulmonary: Clear to auscultation B/L. No rales, rhonchi or wheezing Abdomen: Distended with RUQ tenderness. No fluid wave Extremities: No clubbing, cyanosis or edema. +2 pedal pulses bilaterally. Skin: Warm and dry. Results & Data Vital Signs (Past 12 Hours) Vital Signs Temp Pulse Resp BP Pulse Ox 04/13/19 06:59 36.9 C 57 L 19 109/62 99 04/13/19 04:00 37.2 C 55 L 16 125/61 95 04/13/19 00:00 36.7 C 57 L 18 121/69 98
[2019-04-13] MEDS: PANTOprazole 40 MG TAB PO SCH (09:16)
[2019-04-13] MEDS: DOCUSATE SODIUM 100 MG CAP PO SCH ×2 (09:16→20:18)
[2019-04-13] MEDS: SPIRONOLACTONE 100 MG TAB PO SCH (09:16)
[2019-04-13] MEDS: MAGNESIUM OXIDE 400 MG TAB PO SCH (09:16)
[2019-04-13] MEDS: MULTIVITAMIN TAB PO SCH (09:16)
[2019-04-13] MEDS: VITAMIN B COMPLEX TAB PO SCH (09:16)
[2019-04-13] MEDS: FOLIC ACID 1 MG TAB PO SCH (09:17)
[2019-04-13] MEDS: ASPIRIN 81 MG ECTAB PO SCH (09:17)
[2019-04-13] MEDS: FERROUS GLUCONATE 324 MG TAB PO SCH ×3 (09:17→20:18)
[2019-04-13] MEDS: BUDESONIDE/FORMOTEROL FUMARATE 160/4.5 60 PUFFS/INHALER INH SCH ×2 (09:18→20:20)
[2019-04-13] MEDS: GABAPENTIN 800 MG TAB PO SCH ×3 (09:18→20:18)
[2019-04-13] MEDS: METOPROLOL SUCC 25MG EXT REL TAB PO SCH (09:19)
[2019-04-13] MEDS: FUROSEMIDE 40 MG TAB PO SCH (09:49)
--- NOTE | 2019-04-13 17:53 | Hospitalist Progress Note ---
Date of Service April 13, 2019 Assessment & Plan (1) Cirrhosis: Ascites Labs suggestive of cirrhosis S/P Paracentesis ascitic fluid cultures: No growth to date Continue low salt diet, fluid restriction Appreciate GI Input--GI goal diuretics is lasix 40mg and aldactone 100mg No JUAN JOSE/ARB due to cirrhosis HCC screen w/ imaging and AFP every 6 months; MELD labs every 6 months Needs hepatology follow-up as outpatient Received IV albumin Will need transjugular liver Bx to diagnose accurately as per GI Developing metabolic alkalosis likely due to diuresis, Cr levels slight worsened Consider nephrology input if continues to worsen Continue diuresis with IV Lasix>>Transitioned to PO Continue Aldactone Monitor PRP, I/Os, daily weight Repeat Abd USD: limited Ascites Will request GI to re-eval for unresolved abd pain (2) Chronic combined systolic and diastolic CHF (congestive heart failure): Ischemic cardiomyopathy Continue lasix, spironolactone low sodium diet, fluid restriction Monitor Daily weight Appreciate Cardiology Input Wean off Oxygen as able May need 2 step prior to discharge (3) Ascites: Management as above (4) Chest pain: h/o CAD and PAD Likely anginal pain, no ACS Continue medical management (5) Elevated troponin: Likely related to demand ischemia in the setting of anasarca and congestion (6) Pericardial effusion: No evidence of tamponade on echo (7) CAD (coronary artery disease): continue current meds (8) CKD (chronic kidney disease), stage III: Cr at baseline Monitor renal function (9) DM type 2 (diabetes mellitus, type 2): Hgb A1c 6.1 12/2018 Currently not on any medical therapy Monitor BSG's (10) COPD (chronic obstructive pulmonary disease): no signs of acute exacerbation Continue home inhalers (11) DVT prophylaxis: Lovenox SQ Code Status DNR/DNI Disposition: To be determined Subjective Patient is seen and examined at bedside Reports mild abdominal pain today Discussed with Cardiology and GI today Cr levels slightly worsened LE edema improving Denies chest pain, SOB, dizziness No other complaints Review of Systems Review of Systems: All systems reviewed & are unremarkable except as noted in HPI & below Physical Exam Physical Exam: Physical Exam: Vitals signs as noted above General Appearance:Obese, no apparent distress Head: normocephalic, Atraumatic Eyes: normal inspection, EOMI Neck: supple, Trachea midline Respiratory/Chest: Normal breath sounds, CTA Cardiovascular: S1, S2, + murmur Abdomen/GI:Soft, Bowel sounds present, Mild tender, distended Extremities/Musculoskelatal:normal inspection, Left BKA, R LE 2+ edema Neurologic/Psych:AAOX3, grossly no focal neurological deficits Skin: normal color, warm Results & Data Vital Signs (Past 12 Hours) Vital Signs Temp Pulse Resp BP BP Pulse Ox 04/13/19 15:08 37.1 C 56 L 18 111/65 96 04/13/19 11:23 36.7 C 59 L 18 138/58 L 95 04/13/19 06:59 36.9 C 57 L 19 109/62 99 Laboratory Results [facility] 04/13/19 05:48 Sodium 133 L Potassium 4.0 Chloride 90 L Carbon Dioxide 38 H BUN 47 H Creatinine 1.43 H Glucose 91 Calcium 8.6
[2019-04-13] MEDS: CITALOPRAM 40 MG TAB PO SCH (20:18)
[2019-04-13] MEDS: ATORVASTATIN 40 MG TAB PO SCH (20:19)
[2019-04-13] MEDS: ENOXAPARIN INJ 40 MG/0.4 ML SYR SQ SCH (20:19)
[2019-04-14] MEDS: TRAMADOL HCL 50 MG TABLET PO PRN (06:16)
[2019-04-14 06:42] LABS: BUN Creatinine Ratio 37.8 (10-20); Calcium 8.9 mg/dl (8.5-10.1); Creatinine Clr Calc Pharmacy 38.7 ml/min; Est GFR (African American) 47.5; Potassium 4.4 mmol/L (3.5-5.1)
[2019-04-14] MEDS: DOCUSATE SODIUM 100 MG CAP PO SCH (08:20)
[2019-04-14] MEDS: VITAMIN B COMPLEX TAB PO SCH (08:20)
[2019-04-14] MEDS: FUROSEMIDE 40 MG TAB PO SCH (08:21)
[2019-04-14] MEDS: GABAPENTIN 800 MG TAB PO SCH ×2 (08:21→13:01)
[2019-04-14] MEDS: FERROUS GLUCONATE 324 MG TAB PO SCH ×2 (08:21→13:02)
[2019-04-14] MEDS: METOPROLOL SUCC 25MG EXT REL TAB PO SCH (08:21)
[2019-04-14] MEDS: MULTIVITAMIN TAB PO SCH (08:21)
[2019-04-14] MEDS: PANTOprazole 40 MG TAB PO SCH (08:21)
[2019-04-14] MEDS: SPIRONOLACTONE 100 MG TAB PO SCH (08:21)
[2019-04-14] MEDS: MAGNESIUM OXIDE 400 MG TAB PO SCH (08:22)
[2019-04-14] MEDS: ASPIRIN 81 MG ECTAB PO SCH (08:22)
[2019-04-14] MEDS: FOLIC ACID 1 MG TAB PO SCH (08:22)
[2019-04-14] MEDS: BUDESONIDE/FORMOTEROL FUMARATE 160/4.5 60 PUFFS/INHALER INH SCH (08:23)
--- NOTE | 2019-04-14 10:43 | Cardiology Progress Note ---
Date of Service April 14, 2019 Assessment & Plan (1) Ischemic cardiomyopathy: volume overload is not cardiac in nature continued to diurese 1.5L even after lasix changed to po would d/c to home today with current doses of lasix and spironolactone already scheduled to see me on 05/12 as outpatient, would maintain that appointment again, cirrhosis precludes me from optimizing medical management will not restart arb cannot use Entresto cont metoprolol ok to d/c to tele or to home from cardiac standpoint (2) Cirrhosis: s/p paracentesis still with abdominal distention and discomfort will defer to GI Subjective Pt seen and examined, states that she feels well. Abdominal bloating has resolved except for a small patch in her RUQ which she states "feels like there's a brillo pad under her skin". Denies cp, sob, palpitations, lightheadedness or dizziness. tele reviewed: sinus rhythm with occasional ectopy Review of Systems Review of Systems: All systems reviewed & are unremarkable except as noted in HPI & below Physical Exam Physical Exam: General: Awake, alert and oriented x 3. No acute distress. HEENT: Normocephalic, atraumatic. Pupils equal, round and reactive to light and accommodation. Extraocular muscles are intact. Anicteric sclera. Moist mucous membranes. Neck: No JVD. No bruit. Cardiovascular: Regular. Positive S-4. Normal S-1 and S-2. No S-3. No murmurs or rubs. Pulmonary: Clear to auscultation B/L. No rales, rhonchi or wheezing Abdomen: Bowel sounds x 4, soft. No rebound, guarding or tenderness. No organomegaly. Extremities: No clubbing, cyanosis or edema. +2 pedal pulses bilaterally. Skin: Warm and dry. Results & Data Vital Signs (Past 12 Hours) Vital Signs Temp Pulse Resp BP Pulse Ox 04/14/19 07:16 36.7 C 60 20 123/55 L 97 04/14/19 03:24 36.9 C 55 L 18 114/56 L 97 04/14/19 00:11 37.0 C 61 19 118/72 95
--- NOTE | 2019-04-14 13:54 | Gastroenterology Progress Note ---
Date of Service April 14, 2019 Assessment & Plan (1) Cirrhosis: 68 year old female with SHEILA, T2DM, CKD, COPD on O2, ischemic heart disease EF 40 - 45%, and (likely) cirrhosis admitted w/ chest pain, anasarca and abdominal ascites despite outpatient diuretic titration. Paracentesis with low SAAG (0.5) which is unusual for liver cirrhosis or ascites from CHF. Cytology (- ), arguing against malignancy. She responded nicely to a 2Gm sodium diet, IP diuresis. Cirrhosis with ascites Management - OP EGD/EUS with liver bx in [place] - Fibroscan in [place] - No ETOH - Less than 2G tylenol if using - EGD in 2020 - OP diuretics: currently on furosemide 40mg BID and spironlactone 12.5 daily. would continue furosemide at 40mg BID. If no hx of hyperkalemia, may increase spironolactone to 100mg BID. - HCC screen w/ imaging and AFP every 6 months - MELD labs every 6 months - follow up with Dr. Nguyen in the OP GI office. GI will sign off. No GI contraindication to discharge. (2) Generalized abdominal discomfort: Pt has had diffuse abdominal pain since December, likely caused by ascites or diabetic neuropathy or combination. She has had a thorough work up for this pain. At this time, do not recommend further diagnostic testing for her pain. Present on Admission?: Yes Supervising Physician Co-Signing Physician Notes I saw and evaluated the patient. Given her discomfort we would suggest a trial of Bentyl 10 mg twice daily. For outpatient evaluation of her liver disease we would agree with the recommendation of a liver biopsy. This can be done by endoscopic ultrasound and will be arranged by our office in the next few weeks. We will also make arrangements for hepatic elastography. Subjective Ms. Yael Hinkle is a 68 yr old female with SHEILA< DM-2, CKD3, COPD, CAD, Ischemic CAD with EF 40 - 45%, valvular heart disease (mitral and aortic valve regurg). GI saw this pt in consult last week. We are asked now to provide an opinion regarding abdominal pain. Followed by Dr. Nguyen at hepatology clinic since Dec 2018 for likely cirrho sis with ascites. Regarding risks, she is a diabetic and she tells me that she drank heavily from about age 22, lasting about 20 yrs. OP w/u: US and CT with suggestion of cirrhosis. VDUS (-) for PVT. She underwent EGD 03/11/19 w/o any varices present. The procedure was aborted due to food in the stomach. ANNE-MARIE, AMA, ASMA, Hep B/C and tTG all (-). SPEP w/o significant abnormalities. Platelets 322. MELD 9. OP echo with EF 40 - 45% During this admission: US 04/12 ascites, likely cirrhosis VDUS 04/[address] 04/05 (non contrast: moderate/large ascites, likely cirrhosis). 3 L Paracentesis on 04/06: WBC 162, 36% neutrophils, <3000RBC, T Protein 4.2, Albumin 1.7, serum Protein 6.5, Albumin 2.2. SAAG 2.2 - 1.7 - 0.5. Alk phos in the 180's, otherwise LFTs normal. Paracentesis 04/08 protein 3.5, albumin 1.5, cytology (-) Regarding pain: pt reports diffuse abdominal pain since December: In Dec, prior to EGD, upper abdomen pain, worse after eating. Beginning a month ago: "terrible pressure," with increased ascites Since undergoing paracentesis, diffuse abdominal pain, "feels like steel wool under my skin, all over my abdomen." pt is able to sit up, talk on the phone with her sister. Pt is pleasant, laughing. Review of Systems Review of Systems: ROS: Gen: Denies weakness, fevers, weight loss Eyes: No eye redness, or pain, no recent vision changes Resp: No SOB, no cough Cardio: No palpitations/irregular beats, no chest pain GI: enlarged abdomen + abdominal pressure, improved since paracentesis. : Denies pain on urination Skin: No jaundice, itching or new rashes Neuro: No confusion, no tremor Physical Exam Constitutional: WD/WN, vitals as above + obese wearing O2 Eyes: PERRL, conjunctivae normal, anicteric sclerae ENMT: external ear and nose normal, oropharynx normal Neck: trachea midline, no thyromegaly Respiratory: normal respiratory effort, lungs clear to auscultation Cardiovascular: RRR, no murmur, no edema Gastrointestinal (Abdomen): large, not taunt ascites Rt lower leg with 1+ edema to knee Lt lower leg amputated. No edema above the knees Skin: no rashes, warm and dry no jaundice Neurologic: PERRL, EOMI, accommodation nl, no face palsy, no dysarthria no asterixes Psychiatric: A+Ox3, euthymic affect Lymphatic: few small cervical nodes visible Results & Data Vital Signs (Past 12 Hours) Vital Signs Temp Pulse Pulse Resp BP Pulse Ox 04/14/19 11:25 36.8 C 57 L 18 109/57 L 92 04/14/19 07:16 36.7 C 60 20 123/55 L 97 04/14/19 03:24 36.9 C 55 L 18 114/56 L 97 Laboratory Results See HPI Diagnostic Findings See HPI
--- NOTE | 2019-04-14 14:30 | Hospitalist Progress Note ---
Date of Service April 14, 2019 Assessment & Plan (1) Cirrhosis: Ascites Labs suggestive of cirrhosis S/P Paracentesis ascitic fluid cultures: No growth to date Continue low salt diet, fluid restriction Appreciate GI Input--GI goal diuretics is lasix 40mg and aldactone 100mg No JUAN JOSE/ARB due to cirrhosis HCC screen w/ imaging and AFP every 6 months; MELD labs every 6 months Needs hepatology follow-up as outpatient Received IV albumin Will need transjugular liver Bx to diagnose accurately as per GI Developing metabolic alkalosis likely due to diuresis, Cr levels slight worsened Consider nephrology input if continues to worsen Continue diuresis with IV Lasix>>Transitioned to PO Continue Aldactone Monitor PRP, I/Os, daily weight Repeat Abd USD: limited Ascites Appreciate GI Input Planned for EGD/EUS with Liver Biopsy as outpatient Fibroscan as outpatient (2) Chronic combined systolic and diastolic CHF (congestive heart failure): Ischemic cardiomyopathy Continue lasix, spironolactone low sodium diet, fluid restriction Monitor Daily weight Appreciate Cardiology Input Weaned off of Oxygen 2 step: Did not qualify for oxygen (3) Ascites: Management as above (4) Chest pain: h/o CAD and PAD Likely anginal pain, no ACS Continue medical management (5) Elevated troponin: Likely related to demand ischemia in the setting of anasarca and congestion (6) Pericardial effusion: No evidence of tamponade on echo (7) CAD (coronary artery disease): continue current meds (8) CKD (chronic kidney disease), stage III: Cr at baseline Monitor renal function (9) DM type 2 (diabetes mellitus, type 2): Hgb A1c 6.1 12/2018 Currently not on any medical therapy Monitor BSG's (10) COPD (chronic obstructive pulmonary disease): no signs of acute exacerbation Continue home inhalers (11) DVT prophylaxis: Lovenox SQ Code Status DNR/DNI Disposition: Discharge home with Home Health Subjective Patient is seen and examined at bedside Minimal abdominal pain No other complaints Discussed with Cardiology and GI today LE edema improving Denies chest pain, SOB, dizziness Review of Systems Review of Systems: All systems reviewed & are unremarkable except as noted in HPI & below Physical Exam Physical Exam: Physical Exam: Vitals signs as noted above General Appearance:Obese, no apparent distress Head: normocephalic, Atraumatic Eyes: normal inspection, EOMI Neck: supple, Trachea midline Respiratory/Chest: Normal breath sounds, CTA Cardiovascular: S1, S2, + murmur Abdomen/GI:Soft, Bowel sounds present, Mild tender, distended Extremities/Musculoskelatal:normal inspection, Left BKA, R LE 2+ edema Neurologic/Psych:AAOX3, grossly no focal neurological deficits Skin: normal color, warm Results & Data Vital Signs (Past 12 Hours) Vital Signs Temp Pulse Pulse Pulse Pulse Pulse Resp 04/14/19 13:54 69 65 77 04/14/19 11:25 36.8 C 57 L 18 04/14/19 07:16 36.7 C 60 20 04/14/19 03:24 36.9 C 55 L 18 Resp Resp Resp BP Pulse Ox Pulse Ox Pulse Ox 04/14/19 13:54 20 18 18 90 95 04/14/19 11:25 109/57 L 92 04/14/19 07:16 123/55 L 97 04/14/19 03:24 114/56 L 97 Pulse Ox 04/14/19 13:54 93 04/14/19 11:25 04/14/19 07:16 04/14/19 03:24 Laboratory Results [facility] 04/14/19 05:53 Sodium 137 Potassium 4.4 Chloride 93 L Carbon Dioxide 40 H BUN 50 H Creatinine 1.33 H Glucose 110 H Calcium 8.9
--- NOTE | 2019-04-14 14:44 | Discharge Summary ---
Date of Service April 14, 2019 Admission HPI Per Admitting Provider 68-year-old female who presents the ED for evaluation of abdominal distention and fluid accumulation. Over the past couple of months, patient has been being followed closely by GI and cardiology for management of ascites. Attempts have been made to increase outpatient diuresis including up titration of Lasix and addition of spironolactone. Patient presented to the cardiology office today was found to be significantly volume overloaded despite these efforts. She was referred to the ED for further evaluation/management. Patient reports that yesterday she developed 2 brief episodes of chest pain. She describes the discomfort is located over the left side of her chest, " right over my heart". She describes the pain as a squeezing/applying sensation. No associated shortness of breath, lightheadedness, dizziness, diaphoresis, nausea. She did take 1 sublingual nitroglycerin with resolution of the discomfort after about 30 minutes. She reports this pain as being very similar as to what she has had in the past prior to having cardiac stents placed. She reports she was doing laundry at the time of this. She has chronic exertional shortness of breath which has been worsening. She denies orthopnea and lower extremity edema. She reports some lightheadedness/dizziness with position changes however denies any syncopal event. No nausea, vomiting, diarrhea. She denies other recent illnesses, fevers, chills. No urinary symptoms. In the ED, troponin was found to be 0.062, EKG does not show any ischemic changes. CT ABD/pelvis demonstrates moderate/large volume ascites with associated anasarca. Admission Exam Per Admitting Provider Constitutional: WD/WN, vitals as above Eyes: PERRL, conjunctivae normal, anicteric sclerae ENMT: external ear and nose normal, oropharynx normal Respiratory: normal respiratory effort; no respiratory distress Auscultation: + diminished lung sounds Cardiovascular: Rate/Rhythm: regular rate and regular rhythm Vessels: normal peripheral pulses Extremities: no edema Gastrointestinal (Abdomen): Inspection/Auscultation: normal bowel sounds Percussion/Palpation: + abdomen tender (Generalized), abdomen soft and + ascites (Significant/anasarca); no hepatosplenomegaly Musculoskeletal: no cyanosis or clubbing, extremities motor strength 5/5 Extremities: + amputation noted (Left BKA) Skin: no rashes, warm and dry ~ 0.5cm wound noted to left stump, no significant drainage or erythema noted Neurologic: PERRL, EOMI, accommodation nl, no face palsy, no dysarthria Psychiatric: A+Ox3, euthymic affect Principal Diagnosis Discharge Information Discharge Diagnosis Cirrhosis, Ascites Volume overload Discharge Goals Decrease discomfort,Improve function,Improve disease control Discharge Activity Limitations Resume your previous activity Discharge Data Allergies Allergy/AdvReac Type Severity Reaction Status Date / Time Iodinated Contrast- Oral and Allergy Intermediate severe Verified 04/05/19 16:27 IV Dye vomiting Penicillins Allergy Intermediate hives/upset Verified 04/05/19 16:27 stomach/diarrhea oxycodone [From Percocet] AdvReac Intermediate vomiting Verified 04/05/19 16:27 Consultations 04/05/19 17:16 ED Decision to Admit Stat 04/05/19 20:34 Consult Cardiology Routine Consult Gastroenterology Routine 04/13/19 15:47 Consult Gastroenterology Routine Procedures Performed CT ABD: 1. Cirrhotic liver disease with moderate to large volume of abdominal pelvic ascites, anasarca, small left pleural effusion and small pericardial effusion. 2. Colonic diverticulosis without definitive evidence of acute diverticulitis. 3. No bowel obstruction or focal bowel wall thickening. 4. Cardiomegaly. 5. Additional findings as above. CXR: 1. Cardiac megaly with volume overload and congestive change. No stephani pulmonary edema at this time. 2. Trace left pleural effusion suspected. Portal Vein USD: 1. High resistance hepatic arterial waveforms and limited diastolic flow. Normal peak systolic velocity. High resistance waveforms are nonspecific and can be seen in the postprandial state, patients with advanced age, diffuse periphe ral microvascular disease, and chronic hepatocellular disease. 2. Patent portal veins with normal directional flow. 3. Patent hepatic veins. Ordered Studies 04/05/19 15:47 CT abd pelvis wo con Stat 04/06/19 10:09 US duplex portal hepatic veins Routine 04/06/19 13:00 US paracentesis abd w/image Routine 04/08/19 15:33 US paracentesis abd w/image Routine 04/12/19 10:09 US abdomen ltd ascites Routine Hospital Course (1) Cirrhosis: Ascites Labs suggestive of cirrhosis S/P Paracentesis ascitic fluid cultures: No growth to date Continue low salt diet, fluid restriction Appreciate GI Input--GI goal diuretics is lasix 40mg and aldactone 100mg No JUAN JOSE/ARB due to cirrhosis HCC screen w/ imaging and AFP every 6 months; MELD labs every 6 months Needs hepatology follow-up as outpatient Received IV albumin Will need transjugular liver Bx to diagnose accurately as per GI Developing metabolic alkalosis likely due to diuresis, Cr levels slight worsened Consider nephrology input if continues to worsen Continue diuresis with IV Lasix>>Transitioned to PO Continue Aldactone Monitor PRP, I/Os, daily weight Repeat Abd USD: limited Ascites Appreciate GI Input Planned for EGD/EUS with Liver Biopsy as outpatient Hepatic elastography as outpatient Betanyl trial as per GI (2) Chronic combined systolic and diastolic CHF (congestive heart failure): Ischemic cardiomyopathy Continue lasix, spironolactone low sodium diet, fluid restriction Monitor Daily weight Appreciate Cardiology Input Weaned off of Oxygen 2 step: Did not qualify for oxygen (3) Ascites: Management as above (4) Chest pain: h/o CAD and PAD Likely anginal pain, no ACS Continue medical management (5) Elevated troponin: Likely related to demand ischemia in the setting of anasarca and congestion (6) Pericardial effusion: No evidence of tamponade on echo (7) CAD (coronary artery disease): continue current meds (8) CKD (chronic kidney disease), stage III: Cr at baseline Monitor renal function (9) DM type 2 (diabetes mellitus, type 2): Hgb A1c 6.1 12/2018 Currently not on any medical therapy Monitor BSG's (10) COPD (chronic obstructive pulmonary disease): no signs of acute exacerbation Continue home inhalers (11) DVT prophylaxis: Lovenox SQ Code Status DNR/DNI Disposition: Discharge home with Home Health Total Time Total Time Spent Total Time Spent (In Minutes): 44 minutes Total Time Includes: Examination of the Patient, Discharge Planning, Medication Reconciliation, Communication With Other Providers and Other Discharge Plan Discharge Items Patient Disposition: Home - Home Health Services Reason For Visit: ASCITES,ELEVATED TROP Discharge Diagnosis: Cirrhosis, Ascites Volume overload Discharge Goals: Decrease discomfort, Improve disease control and Improve function Activity: Resume your previous activity Exercise/Sports: Gradually increase as tolerated Non-emergency contact: Primary Care Provider, Hotel Maintenance Technician and Lathe Turner Call non-emergency contact if: you have any medication questions, your symptoms worsen, your pain is not controlled, your pain is worsening, your pain is unusual for you, your pain is concerning for you and you have a fever Follow-up/Referrals: Yazan Araiza DO [Primary Care Provider] - Diet: Carb Consistent or DM2, Heart Healthy and Low Sodium (2gm) Other Ambulatory Orders: Basic Metabolic Panel (Routine) Timeframe: 1 Week Location: Determined by Patient Ordered By: Alber Dean Provider Instructions: Follow up with your Primary Care Physician on April 19, 2019 at 12:45pm Follow up with your Hotel Maintenance Technician as recomended by your Hotel Maintenance Technician--Office will call you with appointment Follow up with your Lathe Turner as recommended-- Office will call you with appointment Get EGD/EUS with Liver biopsy and Fibroscan as outpatient as recommended by your data processing equipment repairer HCC screen with imaging and AFP (blood test); MELD score every 6 months as per your data processing equipment repairer recommendations No drinking Alcohol advised Get Blood Test (Basic Metabolic Panel) in 1 week and follow up with your Physician with results Seek immediate medical attention if your symptoms reoccur or worsen Prescriptions: New spironolactone 100 mg Tablet 100 mg PO QAM 30 Days Qty: 30 RF: 0 dicyclomine 10 mg capsule 10 mg PO BID Qty: 30 RF: 0 Continued citalopram [Celexa] 40 mg tablet 40 mg PO HS RF: 0 aspirin [Aspir-81] 81 mg tablet,delayed release (DR/EC) 81 mg PO QAM RF: 0 gabapentin 800 mg tablet 800 mg PO TID RF: 0 omega [id number] oil [Fish Oil] 1,000 mg (120 mg-180 mg) capsule 1 cap PO QAM RF: 0 cyclobenzaprine 5 mg tablet 5 mg PO TID PRN (Reason: Muscle Spasm) RF: 0 furosemide [Lasix] 40 mg tablet 40 mg PO BID RF: 0 magnesium oxide 400 mg magnesium Tablet 400 mg PO DAILY RF: 0 nitroglycerin 0.4 mg tablet, sublingual 0.4 mg sublingual UD RF: 0 Spiriva Respimat 2.5 mcg/actuation mist 2 inh inhalation DAILY RF: 0 atorvastatin 80 mg Tablet 80 mg PO HS RF: 0 ipratropium-albuterol 0.5 mg-3 mg(2.5 mg base)/3 mL Solution For Nebulization 3 ml INHALATION Q6 PRN (Reason: Shortness Of Breath) RF: 0 omeprazole 40 mg Capsule,Delayed Release(Dr/Ec) 40 mg PO QAM RF: 0 metoprolol succinate 25 mg Tablet Extended Release 24 Hr 25 mg PO DAILY RF: 0 ferrous gluconate 324 mg (38 mg iron) Tablet 324 mg PO TID RF: 0 Symbicort 160-4.5 mcg/actuation Hfa Aerosol Inhaler 2 puff INHALATION BID RF: 0 multivitamin Tablet 1 tab PO QAM RF: 0 vitamin B complex Tablet 1 tab PO QAM RF: 0 folic acid 1 mg Tablet 1 mg PO QAM RF: 0 Discontinued spironolactone 25 mg tablet 12.5 mg PO DAILY RF: 0 losartan 25 mg tablet 12.5 mg PO QAM RF: 0 Stand-Alone Forms: [facility] Discharge Orders: Discharge Order (Routine); Ordered 04/14/19 Ordered By: Alber Chung Admission Data Admit Date/Time: 04/05/19 18:21 Attending Provider: Alber Chung Admit Provider: Melissa Gutierrez Primary Care Provider: Yazan Araiza Other Providers: Melissa Gutierrez ; Jonathon Walters ; Alex Alegria ; Zaki Vega Service: Telemetry Other Interventions: Discharge Summary Assessment (RN) Last Done: 04/14/19 16:30 Pending Studies at Discharge: No DC Date/Time DO NOT enter until pt leaves facility: 04/14/19 17:46
[2019-04-14] MEDS ORDERED: DICYCLOMINE HCL 10 MG CAP PO SCH (16:30)
--- NOTE | 2019-04-16 12:32 | Coding Query ---
To promote full compliance with coding requirements relating to patient care, provider participation is requested in all cases of messenger floorperson uncertainty. Please assist us with the question(s) below: Coding Question(s): The diagnosis(es) below was documented in the Cardiology Consult on 04/06 and in the Cardiology Progress Notes thru 04/12 only, then subsequently fell off all further documentation. Please indicate if it is still a possible diagnosis or ruled out. Physician's Response(s): HEPATORENAL SYNDROME ( ) Diagnosed and POA ( ) Diagnosed and not POA ( x ) Ruled out ( ) Other (please specify) MTDD
== END 2019-04-14 17:46 | disposition home health service (06) | DRG 433 ==
LOC: ED 15:09 → 2S 18:21 → SUATTDRO 18:21 → 2S 19:30
DX: K21.9 Gastro-esophageal reflux disease without esophagitis; E11.42 Type 2 diabetes mellitus with diabetic polyneuropathy; Z88.5 Allergy status to narcotic agent; K74.60 Unspecified cirrhosis of liver; Z79.82 Long term (current) use of aspirin; I25.2 Old myocardial infarction; Z51.81 Encounter for therapeutic drug level monitoring; F17.210 Nicotine dependence, cigarettes, uncomplicated; E87.3 Alkalosis; T50.2X5A Adverse effect of carbonic-anhydrase inhibitors, benzothiadiazides and other diuretics, initial encounter; E11.22 Type 2 diabetes mellitus with diabetic chronic kidney disease; D50.9 Iron deficiency anemia, unspecified; Z91.041 Radiographic dye allergy status; I31.3 Pericardial effusion (noninflammatory); I27.20 Pulmonary hypertension, unspecified; N18.3 Chronic kidney disease, stage 3 (moderate); Z66 Do not resuscitate; R18.8 Other ascites; E87.79 Other fluid overload; Z83.3 Family history of diabetes mellitus; Z88.0 Allergy status to penicillin; I48.91 Unspecified atrial fibrillation; R60.1 Generalized edema; Z89.512 Acquired absence of left leg below knee; I73.9 Peripheral vascular disease, unspecified; I50.42 Chronic combined systolic (congestive) and diastolic (congestive) heart failure; J44.9 Chronic obstructive pulmonary disease, unspecified; Z95.5 Presence of coronary angioplasty implant and graft; F32.9 Major depressive disorder, single episode, unspecified; E78.5 Hyperlipidemia, unspecified; E11.610 Type 2 diabetes mellitus with diabetic neuropathic arthropathy; Z79.899 Other long term (current) drug therapy; I25.5 Ischemic cardiomyopathy; I24.8 Other forms of acute ischemic heart disease; I25.119 Atherosclerotic heart disease of native coronary artery with unspecified angina pectoris; F41.9 Anxiety disorder, unspecified

== ENCOUNTER 2019-06-14 17:11 | Inpatient (IN) ==
[2019-06-14 18:47] LABS: Basophils # (auto) 0.01 K/uL (0-0.2); Basophils % (auto) 0.2 %; Hematocrit (blood only) 36.3 % (37-47); Hemoglobin 11.2 g/dL (12.0-16.0); Immature Granulocytes # (auto) 0.01 K/uL (0.00-0.02); Immature Granulocytes % (auto) 0.2 %; Lymphocytes # (auto) 0.56 K/uL (1.2-3.4); Lymphocytes % (auto) 10.2 %; Mean Corpuscular Hgb Conc 30.9 g/dL (32-36); Mean Corpuscular Volume 78.9 fL (80-100); Mean Platelet Volume 9.7 fL (7.4-10.4); Monocytes # (auto) 0.24 K/uL (0.11-0.59); Monocytes % (auto) 4.4 %; Neutrophils # (auto) 4.69 K/uL (1.4-6.5); Platelet Count 218 K/uL (130-400); RDW Coefficient of Variation 19.5 % (11.5-14.5); RDW Standard Deviation 56.1 fL (36.4-46.3); White Blood Count 5.51 K/uL (4.8-10.8)
--- NOTE | 2019-06-14 18:52 | XRay Report ---
XR chest 1V portable CLINICAL HISTORY: weight gain COMPARISON STUDY: 05/07/2019 FINDINGS: The heart is enlarged. There is mild chronic pulmonary vascular congestion. There is no ove rt edema. There are no pleural effusions. There is a prominent scoliosis. There is no focal pulmonary consolidation.[ IMPRESSION: Stable cardiomegaly and mild chronic pulmonary vascular congestion. No evidence of focal pulmonary consolidation Electronically signed by: Tonny Mar M.D. 06/14/2019 6:51 PM
[2019-06-14 18:55] LABS: INR 1.2 (0.9-1.1); Prothrombin Time 11.8 Seconds (9.0-12.0)
[2019-06-14 19:04] LABS: Albumin Level 2.8 gm/dl (3.4-5.0); BUN Creatinine Ratio 36.4 (10-20); Calcium 8.9 mg/dl (8.5-10.1); Creatinine Clr Calc Pharmacy 41.3 ml/min; Est GFR (African American) 52.7; Est GFR (Non-African American) 45.5; Potassium 3.6 mmol/L (3.5-5.1)
[2019-06-14 19:30] LABS: Bilirubin,Total 0.4 mg/dl (0.2-1); Total Protein 7.8 gm/dl (6.4-8.2); Troponin I 0.061 ng/ml (0-0.045)
[2019-06-14 19:31] LABS: Albumin Globulin Ratio 0.6 (0.9-2)
--- NOTE | 2019-06-14 20:33 | Ultrasound Report ---
US venous doppler UE LT CLINICAL HISTORY: Left arm swelling COMPARISON STUDY: No previous studies for comparison. FINDINGS: No intraluminal thrombus was visualized. The internal jugular, subclavian, axillary, cephal ic, brachial, basilic, radial, and ulnar veins were patent. IMPRESSION: No evidence of left upper extremity DVT. Electronically signed by: Tonny Mar M.D. 06/14/2019 8:32 PM
--- NOTE | 2019-06-14 20:36 | Ultrasound Report ---
LEFT WRIST NONVASCULAR SOFT TISSUE ULTRASOUND. CLINICAL HISTORY: Dorsal left wrist swelling. COMPARISON STUDY: No previous studies for comparison. FINDINGS: There is dorsal wrist edema with mild hypervascularity. No focal masses are visualized. The re is edema/complex fluid within the dorsal tendon sheaths IMPRESSION: 1. No focal masses identified 2. Dorsal left wrist edema with edema/complex fluid within the dorsal tendon sheaths 3. Mild hypervascularity. 4. An infectious/inflammatory process must be considered. Electronically signed by: Tonny Mar M.D. 06/14/2019 8:35 PM
[2019-06-14] MEDS ORDERED: IBUPROFEN 200 MG TAB PO STA (21:12)
[2019-06-14] MEDS ORDERED: DOXYCYCLINE HYCLATE 100 MG CAP PO STA (21:12)
[2019-06-14] MEDS ORDERED: FUROSEMIDE 40 MG/4 ML VIAL IV STA (21:13)
[2019-06-14] MEDS ORDERED: cefTRIAXone SODIUM 1,000 MG/50 ML BAG IV STA (21:24)
--- NOTE | 2019-06-14 21:44 | Emergency Department Note ---
Entered by Rachele Acosta acting as a scribe for History of Present Illness General Chief complaint: Swelling/Edema to Extremity Stated complaint: LEFT HAND SWELLING, POSSIBLE INSECT BITE Source: patient History of Present Illness Provider complaint: swelling to left hand Onset (ago): day(s) 3 Location: upper extremity and left Pain Consistency: + other (episode) Maximum Pain Intensity: 8 Quality: + other (swelling) Associated symptoms: + denies other symptoms (no trauma) and + other (no strength in fingers, numbness in fingers, ) Treatments prior to arrival: other (Benadryl which does not help) The patient is a 68 year old female who presents to the ED with complaints of an episode of left hand swelling that began 3 days ago. The patient states that she woke up 3 days ago and her left hand was swollen, red and warm. The patient notes that the redness and warmth has decreased since then. The patient states that she has no strength in her fingers. The patient states that there is numbness in her finger, but she does have a history of neuropathy. The patient suspects an insect bite. The patient notes that she took Benadryl last night but it did not help. The patient denies trauma to hand. Home Medications Home Medications Medication Instructions Recorded Confirmed Type aspirin 81 mg tablet,delayed 81 mg PO QAM 07/22/18 06/14/19 History release citalopram 40 mg tablet 40 mg PO HS 07/22/18 06/14/19 History gabapentin 800 mg tablet 800 mg PO TID tab 07/22/18 06/14/19 History omega 7-vwx-[id number]-fish oil 1,000 mg 1 cap PO BID cap 07/22/18 06/14/19 History (120 mg-180 mg) capsule cyclobenzaprine 5 mg tablet 5 mg PO TID PRN 09/04/18 06/14/19 History Symbicort 2 puff INHALATION BID 03/01/19 06/14/19 History atorvastatin 80 mg PO HS 03/01/19 06/14/19 History ferrous gluconate 324 mg PO TID 03/01/19 06/14/19 History folic acid 1 mg PO QAM 03/01/19 06/14/19 History ipratropium-albuterol 3 ml INHALATION Q6H PRN 03/01/19 06/14/19 History metoprolol succinate 25 mg PO DAILY 03/01/19 06/14/19 History multivitamin 1 tab PO QAM 03/01/19 06/14/19 History omeprazole 40 mg PO QAM 03/01/19 06/14/19 History vitamin B complex 1 tab PO QAM 03/01/19 06/14/19 History furosemide [Lasix] 40 mg PO BID 04/05/19 06/14/19 History magnesium oxide 400 mg PO DAILY 04/05/19 06/14/19 History nitroglycerin 0.4 mg SUBLINGUAL UD PRN 04/05/19 06/14/19 History cephalexin 500 mg PO BID 06/14/19 06/14/19 History doxycycline hyclate 100 mg PO BID 06/14/19 06/14/19 History ibuprofen [Advil] 400 mg PO Q6H PRN 06/14/19 06/14/19 History spironolactone 100 mg PO QAM 06/14/19 06/14/19 History Allergies Allergy/AdvReac Type Severity Reaction Status Date / Time Iodinated Contrast- Oral and Allergy Intermediate severe Verified 06/14/19 18:20 IV Dye vomiting Penicillins Allergy Intermediate hives/upset Verified 06/14/19 18:20 stomach/diarrhea oxycodone [From Percocet] AdvReac Intermediate vomiting Verified 06/14/19 18:20 Past Med/Surg History Medical History History of left below knee amputation (Chronic) SARANYA (iron deficiency anemia) (Chronic) Valvular heart disease (Chronic) Moderate aortic valve stenosis, moderate mitral regurgitation, mild tricuspid regurgitation Ischemic cardiomyopathy (Chronic) Chronic combined systolic and diastolic CHF (congestive heart failure) (Chronic) EF 40 to 44%, grade 2 diastolic dysfunction CAD (coronary artery disease) (Chronic) 2004 -PCI to unknown vessel PAD (peripheral artery disease) (Chronic) COPD (chronic obstructive pulmonary disease) (Chronic) CKD (chronic kidney disease), stage III (Chronic) Diabetic peripheral neuropathy (Chronic) DM type 2 (diabetes mellitus, type 2) (Chronic) Charcot foot due to diabetes mellitus (Chronic) Advanced cirrhosis of liver (Chronic) H/O: hysterectomy (Resolved) Surgical History History of bilateral carotid endarterectomy (Chronic) History of cholecystectomy (Chronic) Social History Preferred Language: [place] Communication Ability: Effective Visual Impairment: Limited Hearing Ability: Normal Beliefs That Will Affect Care: None marital status: Current Living Situation: Spouse current occupational status: disabled Feels Safe at Home: Yes Smoking Status: Never smoker Tobacco Type: cigarettes Cigarettes Per Day: 3 Second Hand Exposure: Yes Hx Alcohol Use: No Hx Substance Use: No Review of Systems See HPI for pertinent positives & negatives. and A total of 10 systems reviewed and were otherwise negative Physical Exam Vital Signs Vital Signs - 24 hr 06/14/19 17:13 06/14/19 22:38 Temperature 37.2 C Temperature Source Oral Sepsis Recent Fever Within 48 Hours No Sepsis New/Unexplained Change in Mental Status No Sepsis Action Taken by Nursing No Action Required Pulse Rate 68 68 Pulse Rhythm Regular Pulse Strength Normal Respiratory Rate 20 16 Respiratory Effort / Characteristics Non-Labored Respiratory Depth Normal Respiratory Pattern Regular Blood Pressure 117/57 L 120/64 Blood Pressure Mean 77 Blood Pressure Position Sitting Pulse Oximetry 95 98 Oxygen Delivery Method Room Air Room Air GENERAL: Awake, alert, well-appearing, in no distress HENT: Normocephalic, atraumatic. EYES: Normal conjunctiva. Sclera non-icteric. NECK: Supple. No nuchal rigidity. RESPIRATORY: Clear to auscultation. No wheezes. Normal respiratory effort. CARDIAC: Bilateral capillary refill. Normal rate. Normal rhythm. Extremities warm and perfused. GI: No tenderness to palpation. No rebound or guarding. No masses. RECTAL: Deferred. MUSCULOSKELETAL: Atraumatic. Chest examination reveals no tenderness. UPPER EXTREMITIES: Swollen slightly purplish left hand and wrist with 1 cm left posterior wrist fluctuant area. 2+ bilateral radial pulses intact. No significant tenderness up the extensor tendon and no real limitation in ROM of fingers. LOWER EXTREMITIES: Left BKA. Chronic wounds and venous stasis right lower extremity. No edema NEURO: Normal sensorium. No sensory or motor deficits noted. No facial droop. No clurred speech. SKIN: Warm and dry. No rash or jaundice noted. Course 1755: Past medical records reviewed. The patient was evaluated in room C1. A complete history and physical exam was performed. 2114: I discussed the patient's case with Dr. Velasco [facility] Hospitalist. He will evaluate the patient for further management. Consultations Consultation #1: I discussed the patient's case with Dr. Velasco [facility] Hospitalist. He will evaluate the patient for further management. Time: 21:15 Administered Medications Discontinued Medications Doxycycline Hyclate (Vibramycin) 100 mg PO NOW STA Stop: 06/14/19 21:13 Last Admin: 06/14/19 21:40 Dose: 100 mg Documented by: [id number] Furosemide (Lasix) 40 mg IV NOW STA Stop: 06/14/19 21:14 Last Admin: 06/14/19 21:40 Dose: 40 mg Documented by: [id number] Ceftriaxone Sodium (Rocephin) 1,000 mg in 50 mls @ 100 mls/hr IV NOW STA Stop: 06/14/19 21:53 Last Infusion: 06/14/19 22:19 Dose: 0 mls/hr Documented by: [id number] Admin: 06/14/19 21:40 Dose: 100 mls/hr Documented by: [id number] Ibuprofen (Advil) 400 mg PO NOW STA Stop: 06/14/19 21:13 Last Admin: 06/14/19 21:40 Dose: 400 mg Documented by: [id number] Medical Decision Making Differential Diagnosis Differential diagnosis: Etiologies such as cellulitis, abscess, osteomyelitis, MRSA infection, DVT, necrotizing fasciitis, dermatitis, drug eruption, as well as others were entertained. Medical Records Attestation: I reviewed the patient's medical records. Home Medications Current Medication List: was personally reviewed by me Laboratory Data Attestation: I reviewed the patient's lab results. Result diagrams: 06/14/19 18:25 06/14/19 18:25 Lab Results 06/14/19 06/14/19 06/14/19 Range/Units 18:25 18:25 18:25 WBC 5.51 (4.8-10.8) K/uL RBC 4.60 (4.2-5.4) M/uL Hgb 11.2 L (12.0-16.0) g/dL Hct 36.3 L (37-47) % MCV 78.9 L (80-100) fL MCH 24.3 L (25-34) pg MCHC 30.9 L (32-36) g/dL RDW Std Deviation 56.1 H (36.4-46.3) fL RDW Coeff of Tiburcio 19.5 H (11.5-14.5) % Plt Count 218 (130-400) K/uL MPV 9.7 (7.4-10.4) fL Immature Gran % (Auto) 0.2 % Neut % (Auto) 85.0 % Lymph % (Auto) 10.2 % [place] % (Auto) 4.4 % Eos % (Auto) 0.0 % Baso % (Auto) 0.2 % Immature Gran # (Auto) 0.01 (0.00-0.02) K/uL Neut # (Auto) 4.69 (1.4-6.5) K/uL Lymph # (Auto) 0.56 L (1.2-3.4) K/uL [place] # (Auto) 0.24 (0.11-0.59) K/uL Eos # (Auto) 0.00 (0-0.5) K/uL Baso # (Auto) 0.01 (0-0.2) K/uL PT 11.8 (9.0-12.0) Seconds INR 1.2 H (0.9-1.1) Sodium 137 (136-145) mmol/L Potassium 3.6 (3.5-5.1) mmol/L Chloride 98 (98-107) mmol/L Carbon Dioxide 32 (21-32) mmol/L Anion Gap 7.0 (3-11) BUN 44 H (7-18) mg/dl Creatinine 1.22 H (0.6-1.2) mg/dl Est Cr Clr Drug Dosing 41.3 ml/min Est GFR ( Amer) 52.7 Est GFR (Non-Af Amer) 45.5 BUN/Creatinine Ratio 36.4 H (10-20) Glucose 103 H (70-99) mg/dl Calcium 8.9 (8.5-10.1) mg/dl Total Bilirubin 0.4 (0.2-1) mg/dl AST 15 (15-37) U/L ALT 13 (12-78) U/L Alkaline Phosphatase 127 H (45-117) U/L Troponin I 0.061 H* (0-0.045) ng/ml NT-Pro-B Natriuret Pep 83096 H (0-900) pg/ml Total Protein 7.8 (6.4-8.2) gm/dl Albumin 2.8 L (3.4-5.0) gm/dl Globulin 5.0 H (2.5-4.0) gm/dl Albumin/Globulin Ratio 0.6 L (0.9-2) Imaging Data Radiologist's Impression: Radiology results as stated below per my review and the radiologist's interpretation: XR chest 1V portable CLINICAL HISTORY: weight gain COMPARISON STUDY: 05/07/2019 FINDINGS: The heart is enlarged. There is mild chronic pulmonary vascular congestion. There is no overt edema. There are no pleural effusions. There is a prominent scoliosis. There is no focal pulmonary consolidation.[ IMPRESSION: Stable cardiomegaly and mild chronic pulmonary vascular congestion. No evidence of focal pulmonary consolidation Electronically signed by: Tonny Mar M.D. 06/14/2019 6:51 PM US venous doppler UE LT CLINICAL HISTORY: Left arm swelling COMPARISON STUDY: No previous studies for comparison. FINDINGS: No intraluminal thrombus was visualized. The internal jugular, subclavian, axillary, cephalic, brachial, basilic, radial, and ulnar veins were patent. IMPRESSION: No evidence of left upper extremity DVT. Electronically signed by: Tonny Mar M.D. 06/14/2019 8:32 PM LEFT WRIST NONVASCULAR SOFT TISSUE ULTRASOUND. CLINICAL HISTORY: Dorsal left wrist swelling. COMPARISON STUDY: No previous studies for comparison. FINDINGS: There is dorsal wrist edema with mild hypervascularity. No focal masses are visualized. There is edema/complex fluid within the dorsal tendon sheaths IMPRESSION: 1. No focal masses identified 2. Dorsal left wrist edema with edema/complex fluid within the dorsal tendon sheaths 3. Mild hypervascularity. 4. An infectious/inflammatory process must be considered. Electronically signed by: Tonny Mar M.D. 06/14/2019 8:35 PM ECG Data Attestation: I personally reviewed and interpreted this ECG as follows: Indication: other (swelling) Rate (beats per minute): 63 Rhythm: sinus rhythm Findings: + 1st degree AV block and + PVC; no ST elevation Comparison ECG Date: from (05/09/2019) Change: no significant change Blood Pressure Blood Pressure Findings: Low blood pressure Blood Pressure Disposition: further management by hospitalist FAYE Narrative Patient is a 68-year-old female with a history of failure, COPD, diabetes chronic kidney disease presenting today complaining of swelling of her left hand. Over the past 3 days from is actually improved a little bit but now a 1 cm raised area on the left posterior wrist. Denies any significant trauma. Denies any numbness or tingling of the extremities beyond baseline neuropathy. May be some trace increase in lower extremity swelling. Denies any difficulty breathing or chest pain. States she thinks she might of gotten bitten by a bug. Ultrasound of the left upper extremities obtained without evidence of acute DVT. Do not believe this represents acute gout flare. No crepitus. Slight chronic troponin elevation is noted. proBNP is elevated but given the clinical symptomatology is likely only very mild fluid overload and does not explain the hand. In regards to the hand ultrasound would likely did not show evidence of acute DVT. Complex fluid collection on the left dorsal wrist noted that he did not feel would be amenable to I&D at this point. Lower suspicion this repre sents tenosynovitis; she is not significantly tender along the course of the tendon or significant isolated enlargement of singular digits. Patient has been on Keflex for her leg wounds since Friday now more than 48 hours and was just changed to doxycycline due to MRSA growing her leg. Has not taken a dose of this yet. Will give a dose of doxycycline at this point and additionally a dose of ceftriaxone. Patient states that she feels her abdominal bloating would benefit from a paracentesis for drainage here. Again not acutely hypoxic and doubt SBP. Had the last one in March of this year. Discussed with her this point treatment with antibiotics of her hand and possible outpatient follow-up but she does not feel comfortable with this. Discussed with the [facility] hospitalist for observation overnight with plans for monitoring of her hand and possible paracentesis in the morning. Again did give a additional dose of Lasix to help with diuresis as well as some Motrin for hand pain. Impression & Plan Cellulitis of hand, left, Abdominal distension, Fluid overload Discharge Plan Visit Data Chief Complaint: Swelling/Edema to Extremity Stated Complaint: LEFT HAND SWELLING, POSSIBLE INSECT BITE ED Provider: Junaid Dubois Discharge Problem: Cellulitis of hand, left, Abdominal distension, Fluid overload Patient Disposition: Being Evaluated by Hospitalist Discharge Instructions Interventions: ED Discharge Assessment Last Done: 06/14/19 22:38 Forms Stand Alone Forms: My [facility] [place] [employer] Prescriptions Prescriptions: No Action citalopram [Celexa] 40 mg tablet 40 mg PO HS RF: 0 aspirin [Aspir-81] 81 mg tablet,delayed release (DR/EC) 81 mg PO QAM RF: 0 gabapentin 800 mg tablet 800 mg PO TID RF: 0 omega 0-hhd-wtt-fish oil [Fish Oil] 1,000 mg (120 mg-180 mg) capsule 1 cap PO BID RF: 0 cyclobenzaprine 5 mg tablet 5 mg PO TID PRN (Reason: Muscle Spasm) RF: 0 furosemide [Lasix] 40 mg tablet 40 mg PO BID RF: 0 magnesium oxide 400 mg magnesium Tablet 400 mg PO DAILY RF: 0 nitroglycerin 0.4 mg tablet, sublingual 0.4 mg sublingual UD PRN (Reason: Unknown) RF: 0 spironolactone 100 mg tablet 100 mg PO QAM RF: 0 cephalexin 500 mg capsule 500 mg PO BID RF: 0 ibuprofen [Advil] 200 mg Tablet 400 mg PO Q6H PRN (Reason: Pain) RF: 0 doxycycline hyclate 100 mg tablet 100 mg PO BID RF: 0 atorvastatin 80 mg Tablet 80 mg PO HS RF: 0 ipratropium-albuterol 0.5 mg-3 mg(2.5 mg base)/3 mL Solution For Nebulization 3 ml INHALATION Q6H PRN (Reason: Shortness Of Breath Or Wheezing) RF: 0 omeprazole 40 mg Capsule,Delayed Release(Dr/Ec) 40 mg PO QAM RF: 0 metoprolol succinate 25 mg Tablet Extended Release 24 Hr 25 mg PO DAILY RF: 0 ferrous gluconate 324 mg (38 mg iron) Tablet 324 mg PO TID RF: 0 Symbicort 160-4.5 mcg/actuation Hfa Aerosol Inhaler 2 puff INHALATION BID RF: 0 multivitamin Tablet 1 tab PO QAM RF: 0 vitamin B complex Tablet 1 tab PO QAM RF: 0 folic acid 1 mg Tablet 1 mg PO QAM RF: 0 Referrals Referrals: Chadd Dudley MD [Primary Care Provider] - Discharge Problem: Fluid overload Qualifiers: Hypervolemia type: unspecified Qualified Code(s): E87.70 - Fluid overload, unspecified The scribe's documentation has been prepared under my direction and personally reviewed by me in its entirety. I confirm that the note above accurately reflects all work, treatment, procedures, and medical decision making performed by me.
[2019-06-14] MEDS ORDERED: ALBUTEROL HFA 8 GM INHALER INH PRN (23:29)
[2019-06-14] MEDS ORDERED: NITROGLYCERIN SL 0.4 MG/TAB TAB SL PRN (23:29)
[2019-06-14] MEDS ORDERED: ONDANSETRON INJ 2 MG/ML 2 ML VIAL IV PRN (23:29)
[2019-06-14] MEDS ORDERED: ALBUT/IPRATROP 3MG/0.5MG NEB 3 ML VIAL INH PRN (23:29)
[2019-06-14] MEDS ORDERED: VANCOMYCIN CONSULT ACTIVE PRN (23:29)
[2019-06-14] MEDS ORDERED: CYCLOBENZAPRINE HCL 5 MG TAB PO PRN (23:29)
[2019-06-14] MEDS ORDERED: TRAMADOL HCL 50 MG TABLET PO PRN (23:29)
[2019-06-14] MEDS ORDERED: CEFEPIME CONSULT ACTIVE PRN (23:44)
[2019-06-14] MEDS ORDERED: VANCOMYCIN HCL 2,000 MG in SODIUM CHLORIDE 0.9% 500 ML IV ONE (23:45)
[2019-06-14] MEDS ORDERED: HEPARIN SOD 5,000 UNIT/0.5 ML VIAL SQ STA (23:50)
[2019-06-15] MEDS ORDERED: CITALOPRAM 40 MG TAB PO ONE (00:30)
[2019-06-15] MEDS ORDERED: ATORVASTATIN 40 MG TAB PO ONE (00:30)
[2019-06-15] MEDS: FUROSEMIDE 40 MG TAB PO SCH ×3 (00:35→16:33)
[2019-06-15] MEDS: GABAPENTIN 800 MG TAB PO SCH ×4 (00:35→21:22)
[2019-06-15] MEDS: BUDESONIDE/FORMOTEROL FUMARATE 160/4.5 60 PUFFS/INHALER INH SCH ×3 (00:36→21:22)
[2019-06-15] MEDS: CEFEPIME 2,000 MG in SYRINGE 7.5 ML IV SCH (00:36)
[2019-06-15] MEDS: FERROUS GLUCONATE 324 MG TAB PO SCH ×4 (00:37→16:33)
[2019-06-15 06:44] LABS: Creatinine Clr Calc Pharmacy 43.1 ml/min; Est GFR (African American) 57.2; Est GFR (Non-African American) 49.4
--- NOTE | 2019-06-15 06:51 | History and Physical Report ---
DATE OF ADMISSION: 06/14/2019 CHIEF COMPLAINT: Swelling and pain in the left hand region. HISTORY OF PRESENT ILLNESS: A 68-year-old female with past medical history significant for CAD, ischemic cardiomyopathy with combined systolic and diastolic heart failure, moderate aortic wall stenosis, peripheral artery disease, history of left BKA, COPD, chronic kidney disease stage III, iron deficiency anemia, and type 2 diabetes, not on medication , cirrhosis, ascites, history of depression, tobacco use disorder, hyperlipidemia, presents because of swelling and pain in the left hand and wrist region. The patient woke up on the Friday with significant swelling and erythema of the left hand There is also some lump in the left wrist region. It seemed improved but not resolving. So she came to the ER. She is also having blisters in right lower extremity and also small blister on the stump of the left BKA. She follows with the wound care. Wound care initially started on Keflex but cultures came back MRSA and antibiotic was changed to doxycycline, but she has not started doxycycline yet. She is also having low grade fevers at home. Denies any headache. She takes tramadol as needed. When she takes tramadol for 2 or 3 days, she gets some dizziness. She has also had ongoing blurry vision, no earache, has some runny nose. She has some ongoing sore throat. She recently had an endoscopic ultrasound but says sore throat was present prior to that. Denies any difficulty swallowing. Appetite is okay. No chest pain, no shortness of breath, no cough, no nausea, no vomiting. Denies any abdominal pain. Normal bowel and bladder movements. No blood in the stools, no black stools. She is usually constipated. No burning micturitions. No blood in the urine. She does not ambulate much. She lives with her . Currently resting comfortably and hemodynamically stable.Patient says while she is the hospital she also wants paracentesis done. ALLERGIES: IODINATED DIAGNOSTIC AGENTS, PENICILLIN G, PERCOCET. PAST MEDICAL HISTORY: As mentioned above. PAST SURGICAL HISTORY: Left BKA, colonoscopy, EGDs, endoscopic ultrasound, cholecystectomy, bilateral carotid thromboendarterectomy. MEDICATIONS: The patient is on spironolactone 100 mg p.o. daily, albuterol 2 puffs every 4 hours p.r.n., tramadol 50 mg b.i.d. p.r.n., allopurinol 100 mg, ferrous sulfate 325 mg 3 tablets t.i.d., Symbicort 160/4.5 mcg 2 puffs inhalation b.i.d., magnesium oxide 400 mg p.o. daily, Lasix 40 mg p.o. b.i.d., omeprazole 40 mg p.o. daily, DuoNebs q.6 hours p.r.n., gabapentin 800 mg p.o. t.i.d., citalopram 40 mg p.o. daily, atorvastatin 80 mg p.o. daily, Flonase 2 sprays daily, nitroglycerin 0.4 mg sublingual p.r.n., Toprol-XL 25 mg p.o. daily, Paxil 5 mg p.o. at bedtime p.r.n., aspirin 81 mg p.o. daily, B complex vitamins daily, multivitamins daily, omega 3 fatty acids daily. FAMILY HISTORY: Significant for mother had alcoholism, dementia. Father has rheumatic fever, COPD. Sister has COPD. Father has diabetes. SOCIAL HISTORY: , lives with her , smokes quarter pack a day for 54 years. No alcohol use, no drug use. REVIEW OF SYMPTOMS: As per HPI. Rest of review of systems negative. PHYSICAL EXAMINATION: GENERAL: The patient is obese, not in acute distress. VITAL SIGNS: Temperature 37.2, pulse 68, respiratory rate 20, blood pressure 113/57, oxygen 94% room air. HEENT: No pallor, no icterus. Pupils equal, round, reactive to light. NECK: No JVD, no neck masses, no carotid bruits. CARDIOVASCULAR: S1, S2 heard, regular rate and rhythm, no murmur, no gallop. RESPIRATORY SYSTEM: Normal AP diameter. No accessory muscle use. No wheezing, bibasilar crackles present. ABDOMEN: Soft, bowel sounds present. Mild discomfort, some distention seen. No guarding, no rigidity. CENTRAL NERVOUS SYSTEM: Cranial nerves II-XII grossly intact. Nonfocal. EXTREMITIES: Status post left BKA, has prosthesis. and right lower extremity is in dressing. LABORATORY DATA: WBC 5.5, hemoglobin 11.2, hematocrit 36.3, platelets 218. PT 11.8, INR 1.2. Sodium 137, potassium 3.6, chloride 98, bicarbonate 22, BUN 44, creatinine 1.2, serum glucose 103, calcium 9.9, total bilirubin 0.4, AST 15, ALT 13, alkaline phosphatase 127. Troponin I 0.06. BNP 54004. Chest x-ray, stable cardiomegaly with mild pulmonary vascular congestion, no lobar consolidation seen. Left wrist non vascular soft tissue ultrasound, no focal masses were identified, dorsal left upper extremity edema and complex fluid within the dorsal tendon sheaths, mild hypervascularity and infectious or inflammatory process must be considered. Left upper extremity Doppler, no DVT seen. EKG, sinus rhythm, first degree AV block with occasional PVCs at a rate of 63, no acute ST changes seen. ASSESSMENT AND PLAN: This is a 68-year-old female who presents with left hand cellulitis and also for possible paracentesis. 1. Left hand cellulitis ,complex fluid collection in the dorsal aspect of the wrist. Follow the cultures. Consult orthopedics for complex collection on the left wrist, monitor further response.Started on iv vancomycin and iv cefepime. 2. Liver cirrhosis and ascites, on Aldactone and Lasix which we will continue. The patient has was requesting for paracentesis. We will order for ultrasound-guided paracentesis, diagnostic and therapeutic and albumin infusion immediately after the paracentesis. 3. History of diabetes, not on medication. Follow hemoglobin A1c levels. 4. Lower extremity wounds, follows with wound care History of left below-knee amputation .Blisters on the right lower extremity and left lower extremity stump. Cultures grew methicillin-resistant Staphylococcus aureus antibiotics as above. Wound care. 5, chronic combined systolic and diastolic congestive heart failure.On , Lasix and Aldactone. We will monitor daily weights, I's and O's, . recent echo 05/08/2019 Ef 40-45%, moderate MR and moderate . Pulmonary hypertension present with RVSP 40-50mmhg. 6. Coronary artery disease, currently stable on aspirin, statin and Toprol-XL. Currently asymptomatic. 7. Peripheral artery disease, history of left below-knee amputation, history of carotid endarterectomy. Continue aspirin, statin,. 8.chronic obstructive pulmonary disease not in exacerbation. Continue Symbicort and DuoNebs prn. 9. Chronic kidney disease stage III, baseline creatinine 1.2. We will follow the labs. 10. chronic elevation of troponin. Asymptomatic. Will follow repeat levels. 11. Deep venous thrombosis prophylaxis. We will give a dose of heparin subQ tonight and hold for further anticoagulation until paracentesis done. MTDD
[2019-06-15 08:12] LABS: Estimated Average Glucose 128 mg/dl; Hemoglobin A1C 6.1 % (4.5-5.6)
--- NOTE | 2019-06-15 08:42 | Pharmacy Report ---
Pharmacy Abx Initial Consult - Date of Service June 15, 2019 - Pharmacy Dosing Scope Date of Consult: 06/15/19 Consultation requested by: Dr. Muñoz Pharmacy is consulted to initiate Vancomycin and Cefepime IV dosing therapy, order appropriate labs and adjust drug dose/frequency. - Subjective The patient is a 68 year old F admitted on 06/14/19 22:13. - Objective Height: 5 ft Weight: 76.3 kg Vital Signs (Past 12hrs): Vital Signs Temp Pulse Pulse Resp BP BP Pulse Ox 06/15/19 08:21 36.7 C 61 15 120/63 93 06/14/19 23:40 36.7 C 54 L 16 100/50 L 97 06/14/19 22:38 68 16 120/64 98 Lab Results (24hrs): Laboratory Tests (24 Hours) 06/15/19 06/14/19 06/14/19 05:46 18:25 18:25 WBC 5.51 Neut # (Auto) 4.69 Creatinine 1.14 1.22 H Est Cr Clr Drug Dosing 43.1 41.3 Micro Results: Microbiology 06/10/19 15:10 Leg,Right Gram Stain - Final 06/10/19 15:10 Leg,Right Wound Culture - Final Staph aureus MRSA 06/15/19 06:56 Aerobic Blood Culture - Pending Blood Anaerobic Blood Culture - Pending 06/15/19 07:03 Aerobic Blood Culture - Pending Blood Anaerobic Blood Culture - Pending - Risk Factors for Resistance * History of infection with a multidrug-resistant organism: MRSA - R leg wound - 06/10/19 * Antimicrobial use within the last 90 days: Keflex - Assessment & Plan Assessment 68 year old F admitted for cellulitis and receiving IV vancomycin and cefepime Pertinent PMH includes DM, CKD III, h/o L BKA R leg wound culture from 06/10/19 grew MRSA (Vanc TEDDY = 1.0) Plan IV vancomycin and cefepime for treatment of cellulitis Vancomycin IV * Estimated PK Parameters: Vd 0.7 L/kg, Doron 0.040 hr-1, t1/2 ~17 hrs * Loading dose: 2000 mg (~25 mg/kg) * Maintenance dose: 1000 mg IV (~13 mg/kg) every 16 hours * Goal trough level for cellulitis: 15 to 20 mcg/mL * Trough level ordered for 7/31/19 prior to the second dose (to trend if dose is appropriate) * A less than traditional dose has been selected in a patient with h/o CKD. Pharmacy will continue to follow and will adjust dose/frequency as necessary. Thank you.
[2019-06-15] MEDS: MAGNESIUM OXIDE 400 MG TAB PO SCH (09:40)
[2019-06-15] MEDS: SPIRONOLACTONE 100 MG TAB PO SCH (09:41)
[2019-06-15] MEDS: MULTIVITAMIN TAB PO SCH (09:41)
[2019-06-15] MEDS: VITAMIN B COMPLEX TAB PO SCH (09:41)
[2019-06-15] MEDS: ASPIRIN 81 MG ECTAB PO SCH (09:41)
[2019-06-15] MEDS: METOPROLOL SUCC 25MG EXT REL TAB PO SCH (09:41)
[2019-06-15] MEDS: PANTOprazole 40 MG TAB PO SCH (09:41)
--- NOTE | 2019-06-15 10:01 | Hospitalist Progress Note ---
Date of Service June 15, 2019 Assessment & Plan (1) Cellulitis of hand, left: This is a 68-year-old female who presents with left hand cellulitis and also for possible paracentesis. Left hand cellulitis -complex fluid collection in the dorsal aspect of the wrist. -Started on iv vancomycin and IV cefepime, continue for now, follow the cultures -send ESR, CRP, uric acid -orthopedic consultation requested Lower extremity wounds infection of skin from methicillin-resistant Staphylococcus aureus -History of left below-knee amputation -Blisters on the right lower extremity and left lower extremity stump. -06/10/19 wound cultures grew methicillin-resistant Staphylococcus aureus -antibiotics as above -Wound care. Liver cirrhosis with ascites -continue home dose Aldactone and Lasix -paracentesis scheduled on 06/15/19, follow peritoneal fluid analysis -albumin infusion after the paracentesis chronic combined systolic and diastolic congestive heart failure -recent echo 05/08/2019 Ef 40-45%, moderate MR and moderate . Pulmonary hypertension present with RVSP 40-50mmhg -elevated BNP -On Lasix and Aldactone. monitor daily weights, I's and O's, . r Coronary artery disease Chronic troponin elevation -no chest pain -patient known to have troponin levels chronically elevated above reference ranges of normal, first troponin is 0.061 which is baseline as per chart review of previous labs, 2nd troponin downtrended to 0.044 -continue aspirin, statin and Toprol-XL Chronic kidney disease stage III -baseline creatinine 1.2 -monitor renal function while on vancomycin and monitor vanocomycin levels Peripheral artery disease, history of left below-knee amputation, history of carotid endarterectomy -Continue aspirin, statin,. -PT/OT evaluations Type 2 diabetes mellitus -diet controlled -HbA1c 6.1 chronic obstructive pulmonary disease -not in exacerbation -Continue Symbicort and DuoNebs prn. Deep venous thrombosis prophylaxis: may resume heparin subcutaneous after paracentesis on 06/15/19 Subjective Patient seen and examined prior to paracentesis as ordered by nocturnalist admitting physician. Patient has abdomen distention secondary to ascites. She has tenderness and swelling of left upper extremity especially on dorsal surface of the hands. She reports that since yesterday there has been improvements in reduction of swelling. She has a left below knee amputation stump in dressing. She also has dressing over right swan Physical Exam Constitutional: WD/WN, vitals as above Eyes: PERRL, conjunctivae normal, anicteric sclerae EOM intact bilaterally ENMT: external ear and nose normal, oropharynx normal Neck: trachea midline, no thyromegaly Respiratory: normal respiratory effort, lungs clear to auscultation Cardiovascular: Rate/Rhythm: regular rate and regular rhythm Gastrointestinal (Abdomen): Inspection/Auscultation: + abdomen distended ( Patient has abdomen distention secondary to ascites.) and normal bowel sounds Percussion/Palpation: abdomen soft Musculoskeletal: She has tenderness and swelling of left upper extremity especially on dorsal surface of the hands. She reports that since yesterday there has been improvements in reduction of swelling. She has a left below knee amputation stump in dressing. She also has dressing over right swan Neurologic: PERRL, EOMI, accommodation nl, no face palsy, no dysarthria CN's II-XI intact bilaterally Psychiatric: A+Ox3, euthymic affect Results & Data Vital Signs (Past 12 Hours) Vital Signs Temp Pulse Pulse Resp BP BP Pulse Ox 06/15/19 09:45 63 127/66 93 06/15/19 08:21 36.7 C 61 15 120/63 93 06/14/19 23:40 36.7 C 54 L 16 100/50 L 97 06/14/19 22:38 68 16 120/64 98
[2019-06-15 10:48] LABS: Albumin Level 2.7 gm/dl (3.4-5.0); C Reactive Protein 1.05 mg/dl (0-0.29); Uric Acid 12.6 mg/dl (2.6-7.2)
[2019-06-15] MEDS: ALBUMIN 25% 50 ML IV SCH ×3 (11:47→13:05)
--- NOTE | 2019-06-15 11:53 | Ultrasound Report ---
PARACENTESIS UNDER ULTRASOUND GUIDANCE CLINICAL HISTORY: Ascites. PROCEDURE: The risks, benefits, and alternatives to the procedure were discussed with the patient who voiced understanding. Written informed consent was obtained. Following real-time ultrasound localiza tion of a suitable pocket of fluid in the left lower quadrant, the abdomen was prepped and draped in the usual sterile fashion. The skin and soft tissues were anesthetized with 1% lidocaine. The sheathe d paracentesis was inserted and approximately 5 liters of dark ascitic fluid was removed by vacuum rudd ction. The procedure was well tolerated and without immediate complication. The patient left the depa rtment in satisfactory condition. IMPRESSION: Successful ultrasound-guided paracentesis with removal of approximately 5 liters of ascit ic fluid. Electronically signed by: Jono Berg M.D. 06/15/2019 11:52 AM
[2019-06-15] MEDS: IBUPROFEN 200 MG TAB PO PRN (12:26)
[2019-06-15] MEDS: HEPARIN SOD 5,000 UNIT/0.5 ML VIAL SQ SCH ×2 (12:44→21:21)
[2019-06-15 12:50] LABS: Appearance Peritoneal Fluid HAZY; Color Peritoneal Fluid AMBER; Mononuclear WBC Peritoneal 79.8 %; Polynuclear WBC Peritoneal 20.2 %; RBC Peritoneal Fluid (A) 23000 /uL; WBC Peritoneal Fluid (A) 104 /ul (0-300)
[2019-06-15] MEDS: VANCOMYCIN HCL 1,000 MG in SODIUM CHLORIDE 0.9% 250 ML IV SCH (16:12)
[2019-06-15] MEDS: CITALOPRAM 40 MG TAB PO SCH (21:22)
[2019-06-15] MEDS: ATORVASTATIN 40 MG TAB PO SCH (21:22)
[2019-06-16] MEDS: CEFEPIME 2,000 MG in SYRINGE 7.5 ML IV SCH (00:19)
--- NOTE | 2019-06-16 07:06 | Orthopedic Consultation ---
Date of Consultation June 16, 2019 Assessment & Plan (1) Cellulitis of hand, left: Appears to be improving, no surgical intervention at this time. If symptoms worsen or persist may require MRI. Continue abx, NWB LUE, ICE and elevation. Thank you for the consultation. History of Present Illness Reason for Consultation: Left hand/wrist cellulitis Attending Physician: Gilbert Romero MD History of Present Illness The patient is a 68-year-old female with past medical history significant for CAD, ischemic cardiomyopathy with combined systolic and diastolic heart failure, moderate aortic wall stenosis, peripheral artery disease, history of left BKA, COPD, chronic kidney disease stage III, iron deficiency anemia, and type 2 diabetes, not on medication , cirrhosis, ascites, history of depression, tobacco use disorder, hyperlipidemia, presents because of swelling and pain in the left hand and wrist region. The patient reports symptoms began Friday with significant swelling and erythema of the left hand and progressed over the last couple of days. She was seen at [facility] ER, started on abx and admitted for further inpatient treatment/observation. Upon todays exam she does report improvement but not complete resolution of her symptoms. Denies F/C/N/V/D/CP or SOB at this time. Denies trauma to the wri st/hand. Allergies Allergy/AdvReac Type Severity Reaction Status Date / Time Penicillins Allergy Intermediate hives/upset Verified 06/14/19 18:20 stomach/diarrhea Iodinated Contrast- Oral and AdvReac Intermediate severe Verified 06/15/19 07:56 IV Dye vomiting oxycodone [From Percocet] AdvReac Intermediate vomiting Verified 06/14/19 18:20 Home Medications Home Medications Medication Instructions Recorded Confirmed Type aspirin 81 mg tablet,delayed 81 mg PO QAM 07/22/18 06/14/19 History release citalopram 40 mg tablet 40 mg PO HS 07/22/18 06/14/19 History gabapentin 800 mg tablet 800 mg PO TID tab 07/22/18 06/14/19 History omega 6-jez-hxp-fish oil 1,000 mg 1 cap PO BID cap 07/22/18 06/14/19 History (120 mg-180 mg) capsule cyclobenzaprine 5 mg tablet 5 mg PO TID PRN 09/04/18 06/14/19 History Symbicort 2 puff INHALATION BID 03/01/19 06/14/19 History atorvastatin 80 mg PO HS 03/01/19 06/14/19 History ferrous gluconate 324 mg PO TID 03/01/19 06/14/19 History folic acid 1 mg PO QAM 03/01/19 06/14/19 History ipratropium-albuterol 3 ml INHALATION Q6H PRN 03/01/19 06/14/19 History metoprolol succinate 25 mg PO DAILY 03/01/19 06/14/19 History multivitamin 1 tab PO QAM 03/01/19 06/14/19 History omeprazole 40 mg PO QAM 03/01/19 06/14/19 History vitamin B complex 1 tab PO QAM 03/01/19 06/14/19 History furosemide [Lasix] 40 mg PO BID 04/05/19 06/14/19 History magnesium oxide 400 mg PO DAILY 04/05/19 06/14/19 History nitroglycerin 0.4 mg SUBLINGUAL UD PRN 04/05/19 06/14/19 History cephalexin 500 mg PO BID 06/14/19 06/14/19 History doxycycline hyclate 100 mg PO BID 06/14/19 06/14/19 History ibuprofen [Advil] 400 mg PO Q6H PRN 06/14/19 06/14/19 History spironolactone 100 mg PO QAM 06/14/19 06/14/19 History Patient History Medical History History of left below knee amputation (Chronic) SARANYA (iron deficiency anemia) (Chronic) Valvular heart disease (Chronic) Moderate aortic valve stenosis, moderate mitral regurgitation, mild tricuspid regurgitation Ischemic cardiomyopathy (Chronic) Chronic combined systolic and diastolic CHF (congestive heart failure) (Chronic) EF 40 to 44%, grade 2 diastolic dysfunction CAD (coronary artery disease) (Chronic) 2004 -PCI to unknown vessel PAD (peripheral artery disease) (Chronic) COPD (chronic obstructive pulmonary disease) (Chronic) CKD (chronic kidney disease), stage III (Chronic) Diabetic peripheral neuropathy (Chronic) DM type 2 (diabetes mellitus, type 2) (Chronic) Charcot foot due to diabetes mellitus (Chronic) Advanced cirrhosis of liver (Chronic) H/O: hysterectomy (Resolved) Surgical History History of bilateral carotid endarterectomy (Chronic) History of cholecystectomy (Chronic) Family History Father Family history of diabetes mellitus Sister Breast cancer Social History Preferred Language: Salvadorean Communication Ability: Effective Visual Impairment: Limited Hearing Ability: Normal Air Intercept Controller Supervisor Required: No Beliefs That Will Affect Care: None marital status: Current Living Situation: Spouse current occupational status: disabled Feels Safe at Home: Yes Safety Concerns: Feels Safe At This Time Smoking Status: Current every day smoker Tobacco Type: cigarettes Cigarettes Per Day: 3 Second Hand Exposure: Yes Hx Alcohol Use: No Hx Substance Use: No Review of Systems Review of Systems: All systems reviewed & are unremarkable except as noted in HPI & below Physical Exam Physical Exam: LUE NSVI grossly, focal tenderness over dorsal wrist and hand, does have limited ROM with only endpoint pain, mild dorsal edema, scant erythema. No induration or fluctuance. Constitutional: WD/WN, vitals as above Results & Data Vital Signs (Past 12 Hours) Vital Signs Temp Pulse Resp BP Pulse Ox 06/15/19 22:46 37.3 C 69 16 119/62 91
[2019-06-16] MEDS ORDERED: VANCOMYCIN TROUGH ONE (07:30)
[2019-06-16 07:37] LABS: Basophils # (auto) 0.01 K/uL (0-0.2); Basophils % (auto) 0.2 %; Hematocrit (blood only) 35.6 % (37-47); Hemoglobin 10.9 g/dL (12.0-16.0); Immature Granulocytes # (auto) 0.01 K/uL (0.00-0.02); Immature Granulocytes % (auto) 0.2 %; Lymphocytes # (auto) 0.45 K/uL (1.2-3.4); Mean Corpuscular Hgb Conc 30.6 g/dL (32-36); Mean Corpuscular Volume 78.1 fL (80-100); Mean Platelet Volume 9.5 fL (7.4-10.4); Monocytes # (auto) 0.34 K/uL (0.11-0.59); Monocytes % (auto) 7.6 %; Neutrophils # (auto) 3.69 K/uL (1.4-6.5); Platelet Count 186 K/uL (130-400); RDW Coefficient of Variation 19.6 % (11.5-14.5); RDW Standard Deviation 55.8 fL (36.4-46.3); Red Blood Count 4.56 M/uL (4.2-5.4)
[2019-06-16 08:15] LABS: Albumin Level 2.6 gm/dl (3.4-5.0); BUN Creatinine Ratio 36.7 (10-20); Calcium 8.7 mg/dl (8.5-10.1); Creatinine Clr Calc Pharmacy 42.3 ml/min; Est GFR (African American) 59.7; Est GFR (Non-African American) 51.5
[2019-06-16 08:18] LABS: Albumin Globulin Ratio 0.6 (0.9-2); Bilirubin,Total 0.5 mg/dl (0.2-1); Globulin 4.1 gm/dl (2.5-4.0); Total Protein 6.7 gm/dl (6.4-8.2)
--- NOTE | 2019-06-16 08:42 | Pharmacy Report ---
Pharmacy Abx Dose Short Note - Date of Service June 16, 2019 - Assessment & Plan Assessment 68 year old F admitted for cellulitis and receiving IV vancomycin and cefepime Pertinent PMH includes DM, CKD III, h/o L BKA R leg wound culture from 06/10/19 grew MRSA (Vanc TEDDY = 1.0) Day # 2/10 of antimicrobial therapy 06/15 blood and urine cultures still pending Plan IV vancomycin and cefepime for treatment of cellulitis Vancomycin * Trough level of 17.1 mcg/mL is therapeutic (prior to 2nd dose) * Continue dose of 1000 mg IV every 16 hours (as patient is not at risk of accumulation) * Goal trough level for cellulitis: 15 to 20 mcg/mL * Trough level ordered for: 06/18/19 prior to the 5th dose Pharmacy will continue to follow and will adjust dose/frequency as necessary. Thank you.
[2019-06-16] MEDS: GABAPENTIN 800 MG TAB PO SCH ×3 (10:15→21:42)
[2019-06-16] MEDS: VANCOMYCIN HCL 1,000 MG in SODIUM CHLORIDE 0.9% 250 ML IV SCH (10:15)
[2019-06-16] MEDS: ASPIRIN 81 MG ECTAB PO SCH (10:17)
[2019-06-16] MEDS: MAGNESIUM OXIDE 400 MG TAB PO SCH (10:17)
[2019-06-16] MEDS: FUROSEMIDE 40 MG TAB PO SCH ×2 (10:17→16:26)
[2019-06-16] MEDS: MULTIVITAMIN TAB PO SCH (10:18)
[2019-06-16] MEDS: SPIRONOLACTONE 100 MG TAB PO SCH (10:18)
[2019-06-16] MEDS: VITAMIN B COMPLEX TAB PO SCH (10:18)
[2019-06-16] MEDS: METOPROLOL SUCC 25MG EXT REL TAB PO SCH (10:18)
[2019-06-16] MEDS: FERROUS GLUCONATE 324 MG TAB PO SCH ×3 (10:18→16:26)
[2019-06-16] MEDS: PANTOprazole 40 MG TAB PO SCH (10:19)
[2019-06-16] MEDS: BUDESONIDE/FORMOTEROL FUMARATE 160/4.5 60 PUFFS/INHALER INH SCH ×2 (10:19→21:42)
[2019-06-16] MEDS: HEPARIN SOD 5,000 UNIT/0.5 ML VIAL SQ SCH ×2 (10:20→21:41)
[2019-06-16] MEDS ORDERED: GADOBUTROL 65ML VIAL IV PRN (12:29)
--- NOTE | 2019-06-16 12:49 | Magnetic Resonance Report ---
MR wrist LT wo/w con CLINICAL HISTORY: Wrist pain, swelling, redness. Possible abscess. COMPARISON STUDY: No previous studies for comparison. FINDINGS: Images were performed in the axial sagittal and coronal planes. Images were acquired before and after the administration of 6.5 cc of intravenous Gadavist. There is ulnar minus variance. There is widening of the scapholunate distance consistent with a scapholunate ligamentous disruption. There are extensive cystic/erosive changes involving the carpal bones. There are no areas of marrow edema/replacement to indicate neoplasm. There is dorsal soft tissue edema, and there is fluid present within the extensor tendon sleeves. There are no focal fluid collections to indicate an abscess. The examination is moderately limited from a technical standpoint due to motion artifact. IMPRESSION: 1. Extensive arthritic changes with multiple cysts/erosions within the carpal bones 2. Scapholunate ligamentous disruption 3. Ulnar minus variance 4. No evidence of focal abscess 5. Dorsal soft tissue edema. Fluid within the dorsal extensor tendon sleeves consistent with a synovi tis. Electronically signed by: Tonny Mar M.D. 06/16/2019 12:47 PM
[2019-06-16] MEDS: IBUPROFEN 200 MG TAB PO PRN (14:14)
[2019-06-16] MEDS: KETOROLAC TROMETHAMINE 15 MG/ML VIAL IV SCH ×2 (15:50→21:40)
--- NOTE | 2019-06-16 16:18 | Progress Note ---
DATE: 06/16/2019 SUBJECTIVE: The patient was seen earlier this morning, and again this morning earlier, the patient stated that she had no great decrease in her pain, although she states she feels that she was moving her fingers a little bit better. She continued to have the mild swelling over the dorsum of the hand and wrist that was tender on palpation. No fluctuance was appreciated in this area and she says she did not have any erythema noted at this time. Flexion and extension of the fingers was much better today, but she could not make a full fist as of yet. She did have pretty much full extension of the fingers at this time. No decreased sensation and cap refill is less than 2 seconds. On her return visit this afternoon just noticing that the swelling was down on the hand itself which she states that she has been icing it on a regular basis. ASSESSMENT: Cellulitis, left hand. PLAN: MRI was ordered this morning due to no progression and was noted to show extensive arthritic changes with multiple cysts and erosions in the carpal bones, scapholunate ligamentous disruption and an ulnar minus variance. No evidence of focal abscesses and dorsal soft tissue edema, fluid within the dorsal extensor tendon sleeve consistent with synovitis. I discussed this case with Dr. Oh. Plans will be to let the patient eat at this time and provide her a sling for when she is up and about. The patient states she is also taking anti-inflammatories in the past and we will start her on a low dose of Toradol for 24 hours. Continue current antibiotics as per medicine service and we will continue to follow her during her stay.
--- NOTE | 2019-06-16 20:53 | Hospitalist Progress Note ---
Date of Service June 16, 2019 Assessment & Plan (1) Cellulitis of hand, left: Ortho consulted. MRI demonstrated soft tissue edema, degenerative changes, no apparent abscess or osteo. Nonsurgical management recommended. Blood cultures negative. Recent wound culture lower extremity wound grew MRSA. Receiving IV vancomycin + cefepime with improvement. (2) CAD (coronary artery disease): No anginal symptoms. (3) Chronic combined systolic and diastolic CHF (congestive heart failure): Compensated. (4) COPD (chronic obstructive pulmonary disease): Pulm status stable. (5) Cirrhosis: History of cirrhosis with ascites. Paracentesis performed by Radiology under US guidance; 5 L removed. (6) CKD (chronic kidney disease), stage III: Serum creatinine 1.22 at time of admission. Creatinine today 1.10. Follow. (7) DM type 2 (diabetes mellitus, type 2): Hgb A1C = 6.1. FBS today = 99. Insulin coverage as needed. (8) Wound of lower extremity: Followed by Wound Clinic. Recent wound culture grew MRSA. Continue MRSA coverage. (9) DVT prophylaxis: SQ heparin. Ambulate. (10) Discharge planning issues: Anticipated discharge to home. Family Medicine follow-up with Dr. Dudley. Subjective Recheck for multiple problems. Patient seen in their room around 19:20. Left hand feels better. No fever. Ortho recommending nonsurgical management. Review of Systems: Constitutional- no fever. Cardiac- no chest pain. Pulmonary- no cough or SOB. GI- decreased abd distention after paracentesis; no nausea, vomiting, diarrhea, melena, hematochezia. - no urinary symptoms. Otherwise, as noted above. Physical Exam 2 Constitutional: no acute distress Respiratory: no respiratory distress Auscultation: lungs clear to auscultation bilaterally Cardiovascular: Rate/Rhythm: regular rate and regular rhythm Heart Sounds: no gallop Vessels: no JVD Extremities: + edema (trace pretibial); no calf tenderness Gastrointestinal (Abdomen): Inspection/Auscultation: + abdomen distended and normal bowel sounds Percussion/Palpation: abdomen soft; abdomen nontender Musculoskeletal: Extremities: + amputation noted (left BKA) and + hand abnormality (mild erythema dorsum left hand) Skin: no rashes, warm and dry Psychiatric: Orientation: alert and oriented x 3 Results & Data Vital Signs (Past 12 Hours) Vital Signs Temp Pulse Resp BP Pulse Ox 06/16/19 16:26 52 L 106/60 06/16/19 15:43 37.3 C 48 L 16 97/44 L 90 06/16/19 11:02 61 117/65 Laboratory Results Laboratory Results - last 24 hr 06/16/19 06/16/19 06/16/19 07:23 07:23 07:23 WBC 4.50 L RBC 4.56 Hgb 10.9 L Hct 35.6 L MCV 78.1 L MCH 23.9 L MCHC 30.6 L RDW Std Deviation 55.8 H RDW Coeff of Tiburcio 19.6 H Plt Count 186 MPV 9.5 Immature Gran % (Auto) 0.2 Neut % (Auto) 82.0 Lymph % (Auto) 10.0 Dawes % (Auto) 7.6 Eos % (Auto) 0.0 Baso % (Auto) 0.2 Immature Gran # (Auto) 0.01 Neut # (Auto) 3.69 Lymph # (Auto) 0.45 L Dawes # (Auto) 0.34 Eos # (Auto) 0.00 Baso # (Auto) 0.01 Sodium 139 Potassium 4.0 Chloride 99 Carbon Dioxide 35 H Anion Gap 5.0 BUN 40 H Creatinine 1.10 Est Cr Clr Drug Dosing 42.3 Est GFR ( Amer) 59.7 Est GFR (Non-Af Amer) 51.5 BUN/Creatinine Ratio 36.7 H Glucose 99 Calcium 8.7 Magnesium 2.0 Total Bilirubin 0.5 AST 13 L ALT 12 Alkaline Phosphatase 103 Total Protein 6.7 Albumin 2.6 L Globulin 4.1 H Albumin/Globulin Ratio 0.6 L Vancomycin Trough 17.1
[2019-06-16] MEDS: CITALOPRAM 40 MG TAB PO SCH (21:43)
[2019-06-16] MEDS: ATORVASTATIN 40 MG TAB PO SCH (21:43)
[2019-06-17] MEDS: CEFEPIME 2,000 MG in SYRINGE 7.5 ML IV SCH (00:33)
[2019-06-17] MEDS: VANCOMYCIN HCL 1,000 MG in SODIUM CHLORIDE 0.9% 250 ML IV SCH (00:33)
[2019-06-17] MEDS: KETOROLAC TROMETHAMINE 15 MG/ML VIAL IV SCH ×2 (03:58→09:34)
[2019-06-17 08:27] LABS: Creatinine Clr Calc Pharmacy 38.1 ml/min; Est GFR (African American) 52.7; Est GFR (Non-African American) 45.5
[2019-06-17] MEDS: SPIRONOLACTONE 100 MG TAB PO SCH (09:34)
[2019-06-17] MEDS: MULTIVITAMIN TAB PO SCH (09:34)
[2019-06-17] MEDS: ASPIRIN 81 MG ECTAB PO SCH (09:34)
[2019-06-17] MEDS: MAGNESIUM OXIDE 400 MG TAB PO SCH (09:34)
[2019-06-17] MEDS: GABAPENTIN 800 MG TAB PO SCH ×2 (09:34→12:39)
[2019-06-17] MEDS: VITAMIN B COMPLEX TAB PO SCH (09:34)
[2019-06-17] MEDS: FERROUS GLUCONATE 324 MG TAB PO SCH ×2 (09:34→12:39)
[2019-06-17] MEDS: FUROSEMIDE 40 MG TAB PO SCH (09:34)
[2019-06-17] MEDS: PANTOprazole 40 MG TAB PO SCH (09:34)
[2019-06-17] MEDS: BUDESONIDE/FORMOTEROL FUMARATE 160/4.5 60 PUFFS/INHALER INH SCH (09:35)
[2019-06-17] MEDS: HEPARIN SOD 5,000 UNIT/0.5 ML VIAL SQ SCH (09:37)
--- NOTE | 2019-06-17 09:59 | XRay Report ---
XR wrist LT min 3V routine CLINICAL HISTORY: painful left wrist/djd/erosions on mri COMPARISON: None. DISCUSSION: The bones are osteopenic. It is ulnar minus variance. There is marked dorsal soft tissue swelling. Small erosions/subchondral cysts are suspected. No fractures are visualized IMPRESSION: 1. Marked dorsal soft tissue swelling 2. Osteopenia and arthritic change with erosion/subchondral cysts. 3. No acute fractures Electronically signed by: Tonny Mar M.D. 06/17/2019 9:58 AM
--- NOTE | 2019-06-17 10:00 | Orthopedic Progress Note ---
Date of Service June 17, 2019 Assessment & Plan (1) Cellulitis of hand, left: Continues to improve, no surgical intervention at this time. Continue abx, NWB LUE, ICE and elevation. Gentle ROM of fingers . Subjective Lying in bed, awake, alert. No complaints. She feels that her wrist has improved since yesterday. She has been using the sling but states she doesn't want to use it while sleeping due to positional issues. Physical Exam Physical Exam: Continues to slowly improve. ROM getting better. Sensation intact. Cap refill < 2 seconds. Continues with mild swelling dorsally. No over erythema. Results & Data Vital Signs (Past 12 Hours) Vital Signs Temp Pulse Resp BP Pulse Ox 06/17/19 07:36 37 C 52 L 16 103/55 L 94 06/16/19 23:47 37.1 C 51 L 17 101/55 L 97
[2019-06-17] MEDS: METOPROLOL SUCC 25MG EXT REL TAB PO SCH (10:29)
--- NOTE | 2019-06-17 15:05 | Hospitalist Progress Note ---
Date of Service June 17, 2019 Assessment & Plan (1) Cellulitis of hand, left: Ortho consulted. MRI demonstrated soft tissue edema, degenerative changes, no apparent abscess or osteo. Nonsurgical management recommended. Blood cultures negative. Recent wound culture lower extremity wound grew MRSA. Received IV vancomycin + cefepime with improvement. Discharge on doxycycline for MRSA coverage + ciprofloxacin for gram neg coverage. (2) CAD (coronary artery disease): No anginal symptoms. (3) Chronic combined systolic and diastolic CHF (congestive heart failure): Compensated. (4) COPD (chronic obstructive pulmonary disease): Pulmonary status stable. (5) Cirrhosis: History of cirrhosis with ascites. Paracentesis performed by Radiology under US guidance; 5 L removed. (6) CKD (chronic kidney disease), stage III: Serum creatinine 1.22 at time of admission. Creatinine today 122. Follow. (7) DM type 2 (diabetes mellitus, type 2): Blood sugars well-controlled. Hgb A1C = 6.1. (8) Wound of lower extremity: Followed by Wound Clinic. Recent wound culture grew MRSA. Continue MRSA coverage with doxycycline. (9) DVT prophylaxis: SQ heparin. Ambulating. (10) Discharge planning issues: Discharge to home. Family Medicine follow-up with Dr. Dudley. Ortho follow-up with Dr. Yang. Follow-up with [facility]. Subjective Doing well. Left hand much better. No fever. No nausea, vomiting, diarrhea. No other concerns. Ready to go home. Physical Exam Constitutional: no acute distress Respiratory: no respiratory distress Auscultation: lungs clear to auscultation bilaterally Cardiovascular: Rate/Rhythm: regular rate and regular rhythm Heart Sounds: no gallop Vessels: no JVD Extremities: + edema (trace pretibial); no calf tenderness Gastrointestinal (Abdomen): Inspection/Auscultation: + abdomen distended and normal bowel sounds Percussion/Palpation: abdomen soft; abdomen nontender Musculoskeletal: Extremities: + amputation noted (left BKA) and + hand abnormality (minimal erythema dorsum left hand) Skin: no rashes, warm and dry Psychiatric: Orientation: alert and oriented x 3 Results & Data Vital Signs (Past 12 Hours) Vital Signs Temp Pulse Resp BP Pulse Ox 06/17/19 07:36 37 C 52 L 16 103/55 L 94
[2019-06-17] MEDS ORDERED: KETOROLAC TROMETHAMINE 15 MG/ML VIAL IV PRN (16:00)
--- NOTE | 2019-06-17 16:17 | Pharmacy Report ---
Pharmacy Abx Dose Short Note - Date of Service June 17, 2019 - Assessment & Plan Assessment * Ms Hinkle is a 68 year old F receiving Vancomycin for treatment of cellulitis. * R leg wound cx from 06/10/19 with MRSA, vanc TEDDY 1 * Blood cultures from 06/15 with no growth thus far * Vanc level drawn yesterday (after 2 doses) was 17.1mcg/mL. I was concerned that current regimen was too aggressive d/t: * Therapeutic level after a single maintenance dose. Anticipated supratherapeutic trough level when steady-state reached. * BMI ~35kg/m2 (when adjusted for BKA) * CrCl ~ 30mL/min, t1/2 ~ 21hr (when adjusted for BKA) * Vanc TEDDY = 1.0, so goal trough level ~15mcg/mL for cellulitis * Vanc was placed on hold until a level could be evaluated this afternoon. Level was supratherapeutic (22.6mcg/mL). Vancomycin dose reduced accordingly. Plan Vancomycin * Reduce Vancomycin to 1000 mg IV q24h * Goal trough level for cellulitis, Vanc TEDDY 1.0: ~15 mcg/mL * Will check another vanc trough level closer to steady-state on new dosing regimen. Pharmacy will continue to follow and will adjust dose/frequency as necessary. Thank you.
[2019-06-17] MEDS ORDERED: VANCOMYCIN HCL 1,000 MG in SODIUM CHLORIDE 0.9% 250 ML IV SCH (22:00)
[2019-06-18] MEDS ORDERED: VANCOMYCIN TROUGH ONE (07:30)
--- NOTE | 2019-06-19 09:36 | Discharge Summary ---
Date of Service Date of Admission: 06/14/19 Date of Discharge: 06/17/19 Admission HPI Per Admitting Provider A 68-year-old female with past medical history significant for CAD, ischemic cardiomyopathy with combined systolic and diastolic heart failure, moderate aortic wall stenosis, peripheral artery disease, history of left BKA, COPD, chronic kidney disease stage III, iron deficiency anemia, and type 2 diabetes, not on medication , cirrhosis, ascites, history of depression, tobacco use disorder, hyperlipidemia, presents because of swelling and pain in the left hand and wrist region. The patient woke up on the Friday with significant swelling and erythema of the left hand There is also some lump in the left wrist region. It seemed improved but not resolving. So she came to the ER. She is also having blisters in right lower extremity and also small blister on the stump of the left BKA. She follows with the wound care. Wound care initially started on Keflex but cultures came back MRSA and antibiotic was changed to doxycycline, but she has not started doxycycline yet. She is also having low grade fevers at home. Denies any headache. She takes tramadol as needed. When she takes tramadol for 2 or 3 days, she gets some dizziness. She has also had ongoing blurry vision, no earache, has some runny nose. She has some ongoing sore throat. She recently had an endoscopic ultrasound but says sore throat was present prior to that. Denies any difficulty swallowing. Appetite is okay. No chest pain, no shortness of breath, no cough, no nausea, no vomiting. Denies any abdominal pain. Normal bowel and bladder movements. No blood in the stools, no black stools. She is usually constipated. No burning micturitions. No blood in the urine. She does not ambulate much. She lives with her . Currently resting comfortably and hemodynamically stable.Patient says while she is the hospital she also wants paracentesis done. Principal Diagnosis cellulitis left hand Discharge Data Allergies Allergy/AdvReac Type Severity Reaction Status Date / Time Penicillins Allergy Intermediate hives/upset Verified 06/14/19 18:20 stomach/diarrhea Iodinated Contrast- Oral and AdvReac Intermediate severe Verified 06/15/19 07:56 IV Dye vomiting oxycodone [From Percocet] AdvReac Intermediate vomiting Verified 06/14/19 18:20 Consultations 06/14/19 21:25 ED Decision to Admit Stat 06/14/19 23:29 Consult Case Management - Discharge Planning Routine 06/15/19 08:00 Consult Orthopedic Surgery Routine 06/15/19 10:18 Consult Case Management - Discharge Planning Routine Ordered Studies 06/14/19 18:04 US extremity non-vascular ltd Stat US venous doppler UE LT Stat 06/15/19 08:00 US paracentesis abd w/image Routine 06/16/19 10:23 MR wrist LT wo/w con Routine Hospital Course (1) Cellulitis of hand, left: Presented with pain and swelling dorsum left hand; no traumatic injuries. Ortho consulted. MRI demonstrated soft tissue edema, degenerative changes, no apparent abscess or osteo. Nonsurgical management recommended. Blood cultures negative. Recent wound culture lower extremity wound grew MRSA. Received IV vancomycin + cefepime with improvement. Discharge on doxycycline for MRSA coverage + ciprofloxacin for gram neg coverage. (2) CAD (coronary artery disease): No anginal symptoms. (3) Chronic combined systolic and diastolic CHF (congestive heart failure): Compensated. (4) COPD (chronic obstructive pulmonary disease): Pulmonary status stable. (5) Cirrhosis: History of cirrhosis with ascites. Paracentesis performed by Radiology under US guidance; 5 L removed. (6) CKD (chronic kidney disease), stage III: Serum creatinine 1.22 at time of admission. Creatinine day of discharge was 122. Follow. (7) DM type 2 (diabetes mellitus, type 2): Blood sugars well-controlled. Hgb A1C = 6.1. (8) Wound of lower extremity: Followed by Wound Clinic. Recent wound culture grew MRSA. Continue MRSA coverage with doxycycline. (9) DVT prophylaxis: SQ heparin. (10) Discharge planning issues: Discharged to home. Family Medicine follow-up with Dr. Dudley. Ortho follow-up with Dr. Yang. Follow-up with [facility]. Total Time Total Time Spent Total Time Spent (In Minutes): 40 Discharge Plan Discharge Items Patient Disposition: Home - Home Health Services Reason For Visit: SWELLING OF LEFT HAND Discharge Diagnosis: cellulitis left hand Condition: Good Discharge Goals: Decrease discomfort and Improve disease control Activity: Resume your previous activity Non-emergency contact: Primary Care Provider and Hospitalist Call non-emergency contact if: you have any medication questions, your symptoms worsen and your temperature is above 101 Follow-up/Referrals: Lee Yang MD [Physician] - (Call office for appointment.) Chadd Dudley MD [Primary Care Provider] - (06/22/2019 1:00 PM Chadd Dudley MD) Diet: Heart Healthy and Low Sodium (2gm) Addtl Provider Instructions: MEDICAL INSTRUCTIONS: MEDICATION CHANGES: doxycycline for leg ulcer- take as instructed by Wound Clinic ciprofloxacin (Cipro) for cellulitis- take twice a day until gone SUMMARY OF TEST RESULTS: Wound culture from leg grew MRSA. Blood cultures negative. MRI of hand did not show any signs of abscess or bone infection. PENDING TEST RESULTS: Final reports from blood cultures and abdominal fluid are pending, but OK so far. RECOMMENDATIONS FOR FOLLOW-UP: Follow-up with Wound Clinic as scheduled. OTHER INSTRUCTIONS: Seek medical attention if you have: * temperature above 101 * chest pain or trouble breathing * abdominal pain, nausea, vomiting * diarrhea, dark stools or bloody stools * any unanswered questions or concerns Call [phone] if symptoms are severe. Please take good care of yourself. Call if you have any questions or problems. You can reach a [facility] hospitalist on duty at [facility] 24 hours a day by calling [phone]. My cell # is [phone]. ORTHOPEDIC SURGERY INSTRUCTIONS: Nonweightbearing on the left wrist. Increase activity as tolerated. Continue ice and elevation of left hand. Gentle range of motion exercises of the fingers and wrist as it will allow. Continue Ibuprofen 600mg orally every 8 hours for the next 48 hours, then as needed. Use sling for comfort. Follow up with Dr Yang in 1 week. Call for appointment. [phone] Prescriptions: New ciprofloxacin HCl 500 mg tablet 500 mg PO BID Qty: 20 RF: 0 Continued citalopram [Celexa] 40 mg tablet 40 mg PO HS RF: 0 aspirin [Aspir-81] 81 mg tablet,delayed release (DR/EC) 81 mg PO QAM RF: 0 gabapentin 800 mg tablet 800 mg PO TID RF: 0 omega [id number]-fish oil [Fish Oil] 1,000 mg (120 mg-180 mg) capsule 1 cap PO BID RF: 0 cyclobenzaprine 5 mg tablet 5 mg PO TID PRN (Reason: Muscle Spasm) RF: 0 furosemide [Lasix] 40 mg tablet 40 mg PO BID RF: 0 magnesium oxide 400 mg magnesium Tablet 400 mg PO DAILY RF: 0 nitroglycerin 0.4 mg tablet, sublingual 0.4 mg sublingual UD PRN (Reason: Unknown) RF: 0 spironolactone 100 mg tablet 100 mg PO QAM RF: 0 doxycycline hyclate 100 mg tablet 100 mg PO BID RF: 0 atorvastatin 80 mg Tablet 80 mg PO HS RF: 0 ipratropium-albuterol 0.5 mg-3 mg(2.5 mg base)/3 mL Solution For Nebulization 3 ml INHALATION Q6H PRN (Reason: Shortness Of Breath Or Wheezing) RF: 0 omeprazole 40 mg Capsule,Delayed Release(Dr/Ec) 40 mg PO QAM RF: 0 metoprolol succinate 25 mg Tablet Extended Release 24 Hr 25 mg PO DAILY RF: 0 ferrous gluconate 324 mg (38 mg iron) Tablet 324 mg PO TID RF: 0 Symbicort 160-4.5 mcg/actuation Hfa Aerosol Inhaler 2 puff INHALATION BID RF: 0 multivitamin Tablet 1 tab PO QAM RF: 0 vitamin B complex Tablet 1 tab PO QAM RF: 0 folic acid 1 mg Tablet 1 mg PO QAM RF: 0 Changed ibuprofen [Advil] 200 mg Tablet See Rx Instructions .ROUTE .COMPLEX PRN (Reason: Pain) Qty: 0 RF: 0 Discontinued cephalexin 500 mg capsule 500 mg PO BID RF: 0 Stand-Alone Forms: [facility]/Other Patient Handouts: Diabetes Type 2 Coping, Diabetes Meal Planning, ED Sling Discharge Orders: Discharge Order (Routine); Ordered 06/17/19 Ordered By: Monroe Castillo Admission Data Admit Date/Time: 06/14/19 22:13 Attending Provider: Monroe Castillo Admit Provider: Jadiel Muñoz Primary Care Provider: Chadd Dudley Other Providers: Jadiel Muñoz ; Lee Yang ; Gilbert Romero Service: Medical Other Interventions: Discharge Summary Assessment (RN) Last Done: 06/17/19 16:24 DC Date/Time DO NOT enter until pt leaves facility: 06/17/19 17:05
== END 2019-06-17 17:05 | disposition home health service (06) | DRG 603 ==
LOC: ED 17:11 → SUATTDRO 22:13 → 3W 22:13

== ENCOUNTER 2019-09-13 14:33 | Inpatient (IN) ==
--- NOTE | 2019-09-13 15:24 | XRay Report ---
XR chest 1V portable CLINICAL HISTORY: Chest Pain pain COMPARISON STUDY: 06/14/2019 FINDINGS: Stable cardiomegaly. Thoracic scoliosis. Lungs are considered clear. Diaphragms are smooth. IMPRESSION: Chronic change. Cardiomegaly. No acute process. The above report was generated using voice recognition software. It may contain grammatical, syntax or spelling errors. Electronically signed by: John Helm M.D. 09/13/2019 3:23 PM
[2019-09-13] MEDS ORDERED: VANCOMYCIN HCL 1,250 MG in SODIUM CHLORIDE 0.9% 500 ML IV ONE (16:06)
[2019-09-13] MEDS ORDERED: VANCOMYCIN CONSULT ACTIVE PRN (16:06)
[2019-09-13] MEDS ORDERED: cefTRIAXone SODIUM 2,000 MG/70 ML BAG IV STA (16:06)
[2019-09-13] MEDS ORDERED: ALBUT/IPRATROP 3MG/0.5MG NEB 3 ML VIAL NEB STA (16:08)
[2019-09-13] MEDS ORDERED: methylPREDNISolone 125 MG/2 ML VIAL IV STA (16:08)
[2019-09-13 16:13] LABS: Basophils # (auto) 0.02 K/uL (0-0.2); Basophils % (auto) 0.4 %; Hemoglobin 13.6 g/dL (12.0-16.0); Immature Granulocytes # (auto) 0.01 K/uL (0.00-0.02); Immature Granulocytes % (auto) 0.2 %; Lymphocytes # (auto) 0.59 K/uL (1.2-3.4); Mean Corpuscular Hgb Conc 32.4 g/dL (32-36); Mean Corpuscular Volume 83.5 fL (80-100); Mean Platelet Volume 9.8 fL (7.4-10.4); Monocytes % (auto) 6.1 %; Neutrophils # (auto) 3.99 K/uL (1.4-6.5); Neutrophils % (auto) 81.3 %; Platelet Count 172 K/uL (130-400); RDW Coefficient of Variation 16.9 % (11.5-14.5); RDW Standard Deviation 51.9 fL (36.4-46.3); Red Blood Count 5.03 M/uL (4.2-5.4); White Blood Count 4.91 K/uL (4.8-10.8)
--- NOTE | 2019-09-13 16:22 | XRay Report ---
XR tibia fibula RT 2V CLINICAL HISTORY: cellulitis, eval for osseous invovlement pain. Infection. COMPARISON: None. DISCUSSION: Degenerative change right knee as well as right ankle. No acute abnormality of the tibia or fibula. There is no evidence for soft tissue swelling. IMPRESSION: Degenerative change. No acute process. The above report was generated using voice recognition software. It may contain grammatical, syntax or spelling errors. Electronically signed by: John Helm M.D. 09/13/2019 4:21 PM
--- NOTE | 2019-09-13 16:35 | XRay Report ---
XR foot RT 2V CLINICAL HISTORY: cellulitis, eval for osseous involvement COMPARISON: September 08, 2019 DISCUSSION: There are neuropathic changes present within the midfoot. There is a chronic Charcot frac ture deformity. There is bony fragmentation and sclerosis. There is inversion of the plantar arch. Th ere are no cortical destructive changes to indicate acute osteomyelitis. There is mild soft tissue sw elling. There are vascular calcifications present. IMPRESSION: Neuropathic changes with a chronic Charcot fracture subluxation deformity. Inversion of t he plantar arch. No conventional radiographic evidence of acute osteomyelitis. Electronically signed by: Tonny Mar M.D. 09/13/2019 4:34 PM
[2019-09-13 16:36] LABS: Chloride 99 mmol/L (98-107); Potassium 4.3 mmol/L (3.5-5.1); Sodium 135 mmol/L (136-145)
[2019-09-13 16:40] LABS: Alanine Aminotransferase 25 U/L (12-78); Albumin Level 3.4 gm/dl (3.4-5.0); Aspartate Aminotransferase 23 U/L (15-37); BUN Creatinine Ratio 34.6 (10-20); Blood Urea Nitrogen 49 mg/dl (7-18); Calcium 8.9 mg/dl (8.5-10.1); Carbon Dioxide 29 mmol/L (21-32); Creatinine Clr Calc Pharmacy 31.5 ml/min; Est GFR (African American) 44.3; Est GFR (Non-African American) 38.2; Glucose 103 mg/dl (70-99); Lipase 169 U/L (73-393)
[2019-09-13 16:59] LABS: Albumin Globulin Ratio 0.7 (0.9-2); Alkaline Phosphatase 161 U/L (45-117); Bilirubin,Total 0.4 mg/dl (0.2-1); C Reactive Protein < 0.29 mg/dl (0-0.29); NT Pro B Type Natriuretic Pept 17297 pg/ml (0-900); Phosphorus 4.5 mg/dl (2.5-4.9); Total Protein 8.4 gm/dl (6.4-8.2)
--- NOTE | 2019-09-13 18:40 | History & Physical Report ---
Date of Service September 13, 2019 Assessment & Plan (1) Cellulitis of right lower extremity: (2) Wound of right lower extremity: (3) PAD (peripheral artery disease): -Admit to [facility] [place] with telemetry -Patient presenting to the ED by referral of the wound care center for evaluation of persistent right lower extremity cellulitis/right great toe wound -As an outpatient, patient has been on 2 courses of doxycycline and started Bactrim on 09/07 -History of PAD, MARLYS performed 04/2018 demonstrated moderate arterial occlusive disease in the right lower extremity -In the ED, patient is afebrile without leukocytosis and does not appear septic; XR negative for signs of osteomyelitis -Right great toe wound culture from 09/02 growing MRSA -S/P. Vanco and ceftriaxone in the ED, will continue with Vanco only for now according to recent culture -MRI to evaluate for osteomyelitis -Arterial ultrasound to evaluate for degree of PAD -ID consult -Wound care consult (4) Elevated troponin: -Mildly elevated troponin at 0.08 -Appears to have chronically elevated troponin -No reports of chest pain, EKG without acute ST changes -Continue serial cardiac enzymes (5) COPD (chronic obstructive pulmonary disease): -Patient has some mild wheezing on exam and reports a productive cough -May have early COPD exacerbation -Saturating well on room air -For now will try [id number] nebs only; hold on steroids -Continue home inhalers (6) Chronic combined systolic and diastolic CHF (congestive heart failure): -Examines to be euvolemic on exam -Continue home diuretics (7) DM type 2 (diabetes mellitus, type 2): -Diet-controlled -Hgb A1c 6.1 06/2019 -Monitor glucose on daily labs (8) CKD (chronic kidney disease), stage III: - baseline creat runs in the low 1's - creat noted to be 1.4 today - continue to monitor, avoid nephrotoxic agents when able (9) History of left below knee amputation: -History of left BKA following nonhealing osteomyelitis -Has a small chronic pinpoint wound to left BKA stump; drainage unchange, no surrounding erythema (10) DVT prophylaxis: -SQ heparin History of Present Illness Chief Complaint: Right leg infection Primary Care Provider: Chadd Dudley MD 68-year-old female who presents the ED for evaluation of right leg infection. Patient developed an ulcer to the base of her right great toenail about 1 month ago. She had been on 2 courses of p.o. doxycycline. On 09/07, patient was started on Bactrim. She has been following closely with the wound care center. They offered patient admission to the hospital for IV antibiotics however she initially declined. She has had persistent redness and warmth to the right lower extremity. There has not been any drainage from the right great toe ulcer. She has a chronic wound to the left BKA stump. Patient reports this has been being treated with dressing changes. She denies increased drainage from this site. She denies fevers and chills. Yesterday, patient reports she developed some increasing shortness of breath and productive cough. She used her at home nebulizers without much relief. She denies chest pain. She reports intermittent episodes of lightheadedness and dizziness however denies any syncopal event. No abdominal pain, nausea, vomiting, diarrhea. She denies any urinary symptoms. In the ED, patient is afebrile without any leukocytosis. Right foot x-ray does not show any signs of osteomyelitis. CXR is negative for acute cardiopulmonary disease. Patient was given IV Vanco and IV ceftriaxone. She was also given IV Solu-Medrol and nebulizer treatment. Allergies Allergy/AdvReac Type Severity Reaction Status Date / Time Penicillins Allergy Intermediate hives/upset Verified 09/13/19 16:36 stomach/diarrhea Iodinated Contrast Media AdvReac Intermediate severe Verified 09/13/19 16:36 [Iodinated Contrast- Oral vomiting and IV Dye] oxycodone [From Percocet] AdvReac Intermediate vomiting Verified 09/13/19 16:36 Home Medications Home Medications Medication Instructions Recorded Confirmed Type aspirin 81 mg tablet,delayed 81 mg PO QAM 07/22/18 09/13/19 History release citalopram 40 mg tablet 40 mg PO HS 07/22/18 09/13/19 History gabapentin 800 mg tablet 800 mg PO TID tab 07/22/18 09/13/19 History omega 0-aia-mbr-fish oil 1,000 mg 1 cap PO BID cap 07/22/18 09/13/19 History (120 mg-180 mg) capsule Symbicort 2 puff INHALATION BID 03/01/19 09/13/19 History atorvastatin 80 mg PO HS 03/01/19 09/13/19 History ferrous gluconate 324 mg PO TID 03/01/19 09/13/19 History folic acid 1 mg PO QAM 03/01/19 09/13/19 History ipratropium-albuterol 3 ml INHALATION Q6H PRN 03/01/19 09/13/19 History metoprolol succinate 25 mg PO DAILY 03/01/19 09/13/19 History multivitamin 1 tab PO QAM 03/01/19 09/13/19 History omeprazole 40 mg PO QAM 03/01/19 09/13/19 History vitamin B complex 1 tab PO QAM 03/01/19 09/13/19 History furosemide [Lasix] 40 mg PO BID 04/05/19 09/13/19 History magnesium oxide 400 mg PO DAILY 04/05/19 09/13/19 History nitroglycerin 0.4 mg SUBLINGUAL UD PRN 04/05/19 09/13/19 History tramadol 50 mg PO BID PRN 07/15/19 09/13/19 History tiotropium bromide 18 mcg capsule 1 cap INH DAILY 09/02/19 09/13/19 History with inhalation device sulfamethoxazole 800 1 tab PO BID 14 Days #28 tab 09/06/19 09/13/19 Rx mg-trimethoprim 160 mg tablet spironolactone 100 mg PO DAILY 09/13/19 09/13/19 History Past Med/Surg History Medical History Valvular heart disease (Chronic) mod-severe MR, mod TR History of left below knee amputation (Chronic) SARANYA (iron deficiency anemia) (Chronic) Ischemic cardiomyopathy (Chronic) Chronic combined systolic and diastolic CHF (congestive heart failure) (Chronic) EF 40 to 44%, grade 2 diastolic dysfunction CAD (coronary artery disease) (Chronic) 2004 -PCI to unknown vessel PAD (peripheral artery disease) (Chronic) COPD (chronic obstructive pulmonary disease) (Chronic) CKD (chronic kidney disease), stage III (Chronic) pt denies having any problems with kidneys. Diabetic peripheral neuropathy (Chronic) DM type 2 (diabetes mellitus, type 2) (Chronic) Charcot foot due to diabetes mellitus (Chronic) Surgical History History of hysterectomy (Chronic) supracervical History of bilateral carotid endarterectomy (Chronic) History of cholecystectomy (Chronic) Family History Father Family history of diabetes mellitus Sister Breast cancer Social History Preferred Language: [place] Communication Ability: Effective Visual Impairment: Limited Hearing Ability: Normal Jewel Hole Driller Required: No Beliefs That Will Affect Care: None marital status: Current Living Situation: Spouse current occupational status: disabled Other Information That Helps Us Care for You: No Feels Safe at Home: Yes Safety Concerns: Feels Safe At This Time Smoking Status: Current every day smoker Tobacco Type: cigarettes ; Cigarettes Per Day: 5 ; Second Hand Exposure: Yes ; Hx Alcohol Use: No Hx Substance Use: No Review of Systems Review of Systems: ROS per HPI, all other systems reviewed and negative Physical Exam Constitutional: WD/WN, vitals as above Eyes: PERRL, conjunctivae normal, anicteric sclerae ENMT: external ear and nose normal, oropharynx normal Respiratory: normal respiratory effort; no respiratory distress Auscultation: + wheezes (Expiratory, bilateral bases) Cardiovascular: Rate/Rhythm: regular rate and regular rhythm Heart Sounds: + murmur (Grade 3/6 systolic) Vessels: + abnormal peripheral pulses (Diminished right pedal pulse however palpable) Extremities: + edema (Trace edema RLE) Gastrointestinal (Abdomen): normal bowel sounds, soft, nontender, no hepatosplenomegaly Musculoskeletal: no cyanosis or clubbing, extremities motor strength 5/5 Extremities: + amputation noted (Left BKA) Skin: no rashes, warm and dry ulcer noted to right great toe nail base - dried without any drainage; small pinpoint wound noted to right medical calf - no drainage; significant erythema and warmth noted to RLE extending from the foot to below the knee; small pinpoint wound noted to left BKA stump with small amount of purulent drainage, no surrounding erythema Neurologic: PERRL, EOMI, accommodation nl, no face palsy, no dysarthria Psychiatric: A+Ox3, euthymic affect Results & Data Vital Signs (Past 12 Hours) Vital Signs Temp Pulse Pulse Resp BP Pulse Ox 09/13/19 16:16 76 18 98 09/13/19 14:45 37.0 C 69 20 121/67 94 Laboratory Results Short CBC 09/13/19 Range/Units 16:00 WBC 4.91 (4.8-10.8) K/uL Hgb 13.6 (12.0-16.0) g/dL Hct 42.0 (37-47) % Plt Count 172 (130-400) K/uL BMP 09/13/19 16:00 Sodium 135 L Potassium 4.3 Chloride 99 Carbon Dioxide 29 BUN 49 H Creatinine 1.41 H Glucose 103 H Calcium 8.9 Cardiac Enzymes 09/13/19 Range/Units 16:00 Troponin I 0.080 H* (0-0.045) ng/ml Liver Function 09/13/19 Range/Units 16:00 Total Bilirubin 0.4 (0.2-1) mg/dl AST 23 (15-37) U/L ALT 25 (12-78) U/L Alkaline Phosphatase 161 H (45-117) U/L Albumin 3.4 (3.4-5.0) gm/dl Diagnostic Findings CXR IMPRESSION: Chronic change. Cardiomegaly. No acute process. RIGHT FOOT X-RAY IMPRESSION: Neuropathic changes with a chronic Charcot fracture subluxation deformity. Inversion of the plantar arch. No conventional radiographic evidence of acute osteomyelitis. RIGHT TIBIA/FIBULA X-RAY IMPRESSION: Degenerative change. No acute process. Code Status & VTE Plan Code Status Patient is a full code as per my discussion with her. VTE Prophylaxis Plan VTE Prophylaxis will be ordered: Yes Supervising Physician Co-Signing Physician Notes I have seen and examined the patient and have discussed the case with the provider above. I agree with the assessment and plan as stated with the following exceptions. 68 yo F with chronic diabetic charcot foot on the R and a h/o osteomyelitis s/p BKA on the left presents with worsening erythema of her RLE after a course of oral antibiotics. She denies fevers or chills and has intermittent discomfort in the setting of chronic neuropathy. She has onychomycosis of the toenails, and there is a very small wound around her first toenail that is not draining. She reports an increase in erythema after this was manipulated by her mechanical meter tester several weeks ago. She reports being wheelchair-bound but states this is related to her wound not instructions regarding her Charcot foot. Her A1C reflects good current control of blood sugar. She also has RA that is late-stage, and was only recently diagnosed with MTX treatment ordered but not begun in the setting of antibiotic use. She also has heart failure, COPD and still smoking, as well as cirrhosis, all of which appear compensated at this time. Per reports by provider above, she has noticed some mild respiratory symptoms but only in the last 12 hours and this may be nothing. Agree with waiting and watching for now, and continuing inhaler therapy. Physical exam reflects clear lungs to auscultation, a 3/6 DOMINIQUE across precordium, and a soft nontender abdomen. She appears compensated and euvolemic without edema or JVD present. Agree with plan to obtain an MRI to ensure no evidence of osteo is present. As this may be infection vs inflammation from her Charcot foot, agree with ID consult. Appreciate recommendations. Keep NWB on the RLE for now. Agree with Vanco as monotherapy as there is no open, draining wound and we have a recent wound culture positive for MRSA. There is a small shallow macerated area on her stump that wound care has been following without surrounding erythema or other changes. DO Matt
[2019-09-13] MEDS ORDERED: ACETAMINOPHEN 325 MG TAB PO PRN (19:14)
[2019-09-13] MEDS ORDERED: NICOTINE 21 MG/24 HR TDSY TD SCH (19:45)
[2019-09-13] MEDS: NICOTINE 21 MG/24 HR TDSY TD SCH (20:11)
[2019-09-13] MEDS: ATORVASTATIN 40 MG TAB PO SCH (20:14)
[2019-09-13] MEDS: OMEGA-3 (PURIFIED FISH OIL) 1 GM CAP PO SCH (20:15)
[2019-09-13] MEDS: GABAPENTIN 800 MG TAB PO SCH (20:15)
[2019-09-13] MEDS: BUDESONIDE/FORMOTEROL FUMARATE 160/4.5 60 PUFFS/INHALER INH SCH (20:15)
[2019-09-13] MEDS: CITALOPRAM 40 MG TAB PO SCH (20:15)
--- NOTE | 2019-09-13 20:26 | Pharmacy Report ---
Pharmacy Abx Dose Short Note - Date of Service September 13, 2019 - Assessment & Plan A/P Pt is being started on vancomycin for cellulitis. H/o MRSA. Pt has previous vancomycin kinetic data. Pt population p'kinetic data: ke=0.0309. t1/2=22 Vancomycin 1250mg (20mg/kg) in ED x1 then vancomycin 750mg (12mg/kg) q18 trough ordered prior to Css, 09/15 @2330 goal trough until C/s's and TEDDY result will be 15-20mcg/mL Pharmacy will continue to follow and will adjust dose/frequency as necessary. Thank you.
[2019-09-13] MEDS: HEPARIN SOD 5,000 UNIT/0.5 ML VIAL SQ SCH (21:16)
--- NOTE | 2019-09-13 21:29 | Emergency Department Note ---
Entered by Rachele Kirk acting as a scribe for History of Present Illness General Chief complaint: Shortness of Breath/Dyspnea Stated complaint: SOB Time Seen by Provider: 09/13/19 15:04 Source: patient History of Present Illness Onset (ago): day(s) (last week) Location: chest Pain Consistency: + other (worsening) Maximum Pain Intensity: 9 Quality: + other (shortness of breath) Relieved By: not by medication (Doxycycline, Bactrim) Associated symptoms: + denies other symptoms (abdominal pain), + cough and + other (right leg increasing redness, left leg draining) The patient is a 68 year old female who presents to the Emergency Room with complaints of worsening shortness of breath starting last week. The patient states that she had her left leg amputated below the knee in 2009. She reports that everything with it was fine and it healed well up until last July. The patient states that since a little over a year ago she has had a pinpoint hole in that has been draining. She reports that her doctors told her it was fine, but she couldnt wear her prosthetic leg when it was draining. The patient states that this is frustrating as she cannot work without it and has been out of work for a year now. She notes that in May of this year, about 3 months ago, she started having blisters on her right swan. She states that the wound care cl [facility], which was caring for an ulcer on her right big toe, started caring for that. She reports that 39 days ago they decided to start her on antibiotics because her leg was getting red and warm. She reports that they cultured it and it was MRSA. She states that she was placed on 2 round of Doxycycline and it offered no relief. She states that last week her doctor wanted her to come into the hospital for IV antibiotics, but she was against it. The patient states that they decided to start her on Bactrim instead, but in turn, she had to go off her Aldactone. She notes that the redness still has continued to spread and now she is short of breath, too. She states that she called her doctor and they told her to come to the ED. She notes that they wanted her to see infectious disease and her appointment is in 2 days, but they were insistent she just come to the ED today to come in. The patient complains of increased coughing. She notes that she has been smoking 3-5 cigarettes a day and has been working on quitting. The patient denies her left leg being cultured and abdominal pain. Home Medications Home Medications Medication Instructions Recorded Confirmed Type aspirin 81 mg tablet,delayed 81 mg PO QAM 07/22/18 09/13/19 History release citalopram 40 mg tablet 40 mg PO HS 07/22/18 09/13/19 History gabapentin 800 mg tablet 800 mg PO TID tab 07/22/18 09/13/19 History omega [id number]-ubt-fjq-fish oil 1,000 mg 1 cap PO BID cap 07/22/18 09/13/19 History (120 mg-180 mg) capsule Symbicort 2 puff INHALATION BID 03/01/19 09/13/19 History atorvastatin 80 mg PO HS 03/01/19 09/13/19 History ferrous gluconate 324 mg PO TID 03/01/19 09/13/19 History folic acid 1 mg PO QAM 03/01/19 09/13/19 History ipratropium-albuterol 3 ml INHALATION Q6H PRN 03/01/19 09/13/19 History metoprolol succinate 25 mg PO DAILY 03/01/19 09/13/19 History multivitamin 1 tab PO QAM 03/01/19 09/13/19 History omeprazole 40 mg PO QAM 03/01/19 09/13/19 History vitamin B complex 1 tab PO QAM 03/01/19 09/13/19 History furosemide [Lasix] 40 mg PO BID 04/05/19 09/13/19 History magnesium oxide 400 mg PO DAILY 04/05/19 09/13/19 History nitroglycerin 0.4 mg SUBLINGUAL UD PRN 04/05/19 09/13/19 History tramadol 50 mg PO BID PRN 07/15/19 09/13/19 History tiotropium bromide 18 mcg capsule 1 cap INH DAILY 09/02/19 09/13/19 History with inhalation device sulfamethoxazole 800 1 tab PO BID 14 Days #28 tab 09/06/19 09/13/19 Rx mg-trimethoprim 160 mg tablet spironolactone 100 mg PO DAILY 09/13/19 09/13/19 History Allergies Allergy/AdvReac Type Severity Reaction Status Date / Time Penicillins Allergy Intermediate hives/upset Verified 09/13/19 16:36 stomach/diarrhea Iodinated Contrast Media AdvReac Intermediate severe Verified 09/13/19 16:36 [Iodinated Contrast- Oral vomiting and IV Dye] oxycodone [From Percocet] AdvReac Intermediate vomiting Verified 09/13/19 16:36 Past Med/Surg History Medical History Valvular heart disease (Chronic) mod-severe MR, mod TR History of left below knee amputation (Chronic) SARANYA (iron deficiency anemia) (Chronic) Ischemic cardiomyopathy (Chronic) Chronic combined systolic and diastolic CHF (congestive heart failure) (Chronic) EF 40 to 44%, grade 2 diastolic dysfunction CAD (coronary artery disease) (Chronic) 2004 -PCI to unknown vessel PAD (peripheral artery disease) (Chronic) COPD (chronic obstructive pulmonary disease) (Chronic) CKD (chronic kidney disease), stage III (Chronic) pt denies having any problems with kidneys. 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 and A total of 10 systems reviewed and were otherwise negative Physical Exam Vital Signs Vital Signs - 24 hr 09/13/19 14:45 09/13/19 16:16 Temperature 37.0 C Temperature Source Oral Sepsis Recent Fever Within 48 Hours No Sepsis New/Unexplained Change in Mental Status No Sepsis Action Taken by Nursing No Action Required Pulse Rate 69 Pulse Rate [Right Finger] 76 Respiratory Rate 20 18 Respiratory Effort / Characteristics Non-Labored Non-Labored Spontaneous Respiratory Depth Normal Blood Pressure 121/67 Blood Pressure Mean 85 Blood Pressure Position Sitting Pulse Oximetry 94 98 Oxygen Delivery Method Room Air Room Air GENERAL: Awake, alert, chronically ill-appearing, in no distress HENT: Normocephalic, atraumatic. Oropharynx with dry mucous membranes and otherwise unremarkable. EYES: Normal conjunctiva. Sclera non-icteric. NECK: Supple. No nuchal rigidity. FROM. No JVD. RESPIRATORY: Scant intermittent wheeze otherwise clear. CARDIAC: Regular rate, normal rhythm. Extremities warm and well perfused. Pulses equal. ABDOMEN: Soft, non-distended. No tenderness to palpation. No rebound or guarding. No masses. RECTAL: Deferred. MUSCULOSKELETAL: Chest examination reveals no tenderness. The back is symmetri [place] on inspection without obvious abnormality. There is no CVA tenderness to palpation. LOWER EXTREMITIES: Left BKA with punctate chronic wound with chronic discharge. No erythema, warmth or crepitus to the stump. Erythema, warmth, tenderness, and 1+ edema to the right lower leg extending to the foot. There is a punctate superficial ulcer of the medical aspect of the right pretibial region and a superficial ulcer of the right great toe nail bed. NEURO: Normal sensorium. No sensory or motor deficits noted. SKIN: No rash or jaundice noted. Course 1528: The patient was evaluated in room C7. A complete history and physical exam was performed. I discussed the possible need for inpatient treatment at this time. She was verbally agreeable and understanding. 1614: I [facility] the patient[facility] She will evaluate the patient for further management. Administered Medications Albuterol (Duoneb) 3 ml NEB Q4R RAFY Stop: 10/13/19 22:59 Last Admin: 09/13/19 23:07 Dose: 3 ml Documented by: [id number] Atorvastatin Calcium (Lipitor) 80 mg PO HS RAFY Stop: 10/13/19 20:59 Last Admin: 09/13/19 20:14 Dose: 80 mg Documented by: [id number] Budesonide/Formoterol Fumarate (Symbicort 160mcg/4.5mcg) 2 puffs INH BID RAFY Stop: 10/13/19 20:59 Last Admin: 09/13/19 20:15 Dose: 2 puffs Documented by: [id number] Citalopram Hydrobromide (Celexa) 40 mg PO HS RAFY Stop: 10/13/19 20:59 Last Admin: 09/13/19 20:15 Dose: 40 mg Documented by: [id number] Fish Oil (Elizabeth-3 (Purified Fish Oil)) 1 gm PO BID RAFY Stop: 10/13/19 20:59 Last Admin: 09/13/19 20:15 Dose: 1 gm Documented by: [id number] Gabapentin (Neurontin) 800 mg PO TID RAFY Stop: 10/13/19 20:59 Last Admin: 09/13/19 20:15 Dose: 800 mg Documented by: [id number] Heparin Sodium (Porcine) (Heparin Sodium (Porcine)) 5,000 units SQ Q8 RAFY Stop: 10/13/19 21:59 Last Admin: 09/13/19 21:16 Dose: Not Given Documented by: [id number] Nicotine (Nicoderm Cq) 21 mg TD QAM RAFY Stop: 10/13/19 19:44 Last Admin: 09/13/19 20:11 Dose: 21 mg Documented by: [id number] Tramadol HCl (Ultram) 50 mg PO BID PRN PRN Reason: pain Stop: 10/13/19 19:13 Last Admin: 09/13/19 23:50 Dose: 50 mg Documented by: [id number] Discontinued Medications Albuterol (Duoneb) 3 ml NEB NOW STA Stop: 09/13/19 16:09 Last Admin: 09/13/19 16:15 Dose: 3 ml Documented by: [id number] Ceftriaxone Sodium (Rocephin) 2,000 mg in 70 mls @ 140 mls/hr IV NOW STA Stop: 09/13/19 16:35 Last Infusion: 09/13/19 17:42 Dose: 0 mls/hr Documented by: [id number] Admin: 09/13/19 17:07 Dose: 140 mls/hr Documented by: [id number] Vancomycin HCl 1,250 mg/ (Sodium Chloride) 525 mls @ 200 mls/hr IV NOW ONE Stop: 09/13/19 18:43 Last Infusion: 09/13/19 20:50 Dose: 0 mls/hr Documented by: [id number] Admin: 09/13/19 17:42 Dose: 200 mls/hr Documented by: [id number] Methylprednisolone (Solumedrol) 125 mg IV NOW STA Stop: 09/13/19 16:09 Last Admin: 09/13/19 16:18 Dose: 125 mg Documented by: [id number] Medical Decision Making Differential Diagnosis Differential diagnosis includes etiologies such as cellulitis, abscess, MRSA infection, DVT, necrotizing fasciitis, dermatitis, drug eruption, as well as others were entertained. Medical Records Attestation: I reviewed the patient's medical records. Home Medications Current Medication List: was personally reviewed by me Laboratory Data Attestation: I reviewed the patient's lab results. Result diagrams: 09/13/19 16:00 09/13/19 16:00 Lab Results 09/13/19 09/13/19 09/13/19 Range/Units 16:00 16:00 16:43 WBC 4.91 (4.8-10.8) K/uL RBC 5.03 (4.2-5.4) M/uL Hgb 13.6 (12.0-16.0) g/dL Hct 42.0 (37-47) % MCV 83.5 (80-100) fL MCH 27.0 (25-34) pg MCHC 32.4 (32-36) g/dL RDW Std Deviation 51.9 H (36.4-46.3) fL RDW Coeff of Tiburcio 16.9 H (11.5-14.5) % Plt Count 172 (130-400) K/uL MPV 9.8 (7.4-10.4) fL Immature Gran % (Auto) 0.2 % Neut % (Auto) 81.3 % Lymph % (Auto) 12.0 % [place] % (Auto) 6.1 % Eos % (Auto) 0.0 % Baso % (Auto) 0.4 % Immature Gran # (Auto) 0.01 (0.00-0.02) K/uL Neut # (Auto) 3.99 (1.4-6.5) K/uL Lymph # (Auto) 0.59 L (1.2-3.4) K/uL [place] # (Auto) 0.30 (0.11-0.59) K/uL Eos # (Auto) 0.00 (0-0.5) K/uL Baso # (Auto) 0.02 (0-0.2) K/uL ESR 79 H (0-21) mm/hr Sodium 135 L (136-145) mmol/L Potassium 4.3 (3.5-5.1) mmol/L Chloride 99 (98-107) mmol/L Carbon Dioxide 29 (21-32) mmol/L Anion Gap 8.0 (3-11) BUN 49 H (7-18) mg/dl Creatinine 1.41 H (0.6-1.2) mg/dl Est Cr Clr Drug Dosing 31.5 ml/min Est GFR ( Amer) 44.3 Est GFR (Non-Af Amer) 38.2 BUN/Creatinine Ratio 34.6 H (10-20) Glucose 103 H (70-99) mg/dl Lactate (0.4-2.0) mmol/L Calcium 8.9 (8.5-10.1) mg/dl Phosphorus 4.5 (2.5-4.9) mg/dl Magnesium 2.0 (1.8-2.4) mg/dl Total Bilirubin 0.4 (0.2-1) mg/dl AST 23 (15-37) U/L ALT 25 (12-78) U/L Alkaline Phosphatase 161 H (45-117) U/L Troponin I 0.080 H* (0-0.045) ng/ml C-Reactive Protein < 0.29 (0-0.29) mg/dl NT-Pro-B Natriuret Pep 51880 H (0-900) pg/ml Total Protein 8.4 H (6.4-8.2) gm/dl Albumin 3.4 (3.4-5.0) gm/dl Globulin 5.0 H (2.5-4.0) gm/dl Albumin/Globulin Ratio 0.7 L (0.9-2) Lipase 169 (73-393) U/L TSH 3.300 (0.300-4.500) uIu/ml 09/13/19 Range/Units 16:43 WBC (4.8-10.8) K/uL RBC (4.2-5.4) M/uL Hgb (12.0-16.0) g/dL Hct (37-47) % MCV (80-100) fL MCH (25-34) pg MCHC (32-36) g/dL RDW Std Deviation (36.4-46.3) fL RDW Coeff of Tiburcio (11.5-14.5) % Plt Count (130-400) K/uL MPV (7.4-10.4) fL Immature Gran % (Auto) % Neut % (Auto) % Lymph % (Auto) % [place] % (Auto) % Eos % (Auto) % Baso % (Auto) % Immature Gran # (Auto) (0.00-0.02) K/uL Neut # (Auto) (1.4-6.5) K/uL Lymph # (Auto) (1.2-3.4) K/uL Marathon # (Auto) (0.11-0.59) K/uL Eos # (Auto) (0-0.5) K/uL Baso # (Auto) (0-0.2) K/uL ESR (0-21) mm/hr Sodium (136-145) mmol/L Potassium (3.5-5.1) mmol/L Chloride (98-107) mmol/L Carbon Dioxide (21-32) mmol/L Anion Gap (3-11) BUN (7-18) mg/dl Creatinine (0.6-1.2) mg/dl Est Cr Clr Drug Dosing ml/min Est GFR ( Amer) Est GFR (Non-Af Amer) BUN/Creatinine Ratio (10-20) Glucose (70-99) mg/dl Lactate 1.6 (0.4-2.0) mmol/L Calcium (8.5-10.1) mg/dl Phosphorus (2.5-4.9) mg/dl Magnesium (1.8-2.4) mg/dl Total Bilirubin (0.2-1) mg/dl AST (15-37) U/L ALT (12-78) U/L Alkaline Phosphatase (45-117) U/L Troponin I (0-0.045) ng/ml C-Reactive Protein (0-0.29) mg/dl NT-Pro-B Natriuret Pep (0-900) pg/ml Total Protein (6.4-8.2) gm/dl Albumin (3.4-5.0) gm/dl Globulin (2.5-4.0) gm/dl Albumin/Globulin Ratio (0.9-2) Lipase (73-393) U/L TSH (0.300-4.500) uIu/ml Imaging Data Radiologist's Impression: Radiology results as stated below per my review and the radiologist's interpretation: XR chest 1V portable CLINICAL HISTORY: Chest Pain pain COMPARISON STUDY: 06/14/2019 FINDINGS: Stable cardiomegaly. Thoracic scoliosis. Lungs are considered clear. Diaphragms are smooth. IMPRESSION: Chronic change. Cardiomegaly. No acute process. The above report was generated using voice recognition software. It may contain grammatical, syntax or spelling errors. Electronically signed by: John Helm M.D. 09/13/2019 3:23 PM XR tibia fibula RT 2V CLINICAL HISTORY: cellulitis, eval for osseous invovlement pain. Infection. COMPARISON: None. DISCUSSION: Degenerative change right knee as well as right ankle. No acute abnormality of the tibia or fibula. There is no evidence for soft tissue swelling. IMPRESSION: Degenerative change. No acute process. The above report was generated using voice recognition software. It may contain grammatical, syntax or spelling errors. Electronically signed by: John Helm M.D. 09/13/2019 4:21 PM XR foot RT 2V CLINICAL HISTORY: cellulitis, eval for osseous involvement COMPARISON: September 08, 2019 DISCUSSION: There are neuropathic changes present within the midfoot. There is a chronic Charcot fracture deformity. There is bony fragmentation and sclerosis. There is inversion of the plantar arch. There are no cortical destructive changes to indicate acute osteomyelitis. There is mild soft tissue swelling. There are vascular calcifications present. IMPRESSION: Neuropathic changes with a chronic Charcot fracture subluxation deformity. Inversion of the plantar arch. No conventional radiographic evidence of acute osteomyelitis. Electronically signed by: Tonny Mar M.D. 09/13/2019 4:34 PM ECG Data Attestation: I personally reviewed and interpreted this ECG as follows: Indication: SOB/dyspnea Rate (beats per minute): 61 Rhythm: normal sinus Findings: + other (left anterior fasicular block); no PAC, no PVC, no ST depression, no ST elevation, no acute ischemic change and no ectopy Comparison ECG Date: from (06/11/2019) Change: no significant change Blood Pressure Blood Pressure Findings: Elevated blood pressure Blood Pressure Disposition: further management by hospitalist FAYE Narrative Patient is a 60-year-old woman with a past medical history of multiple comorbidities including PAD, CAD, ICM, CKD, diabetes, history of left BKA with chronic discharge from stump who presents emergency department for admission for IV antibiotics after right lower extremity erythema has not responded to outpatient treatment doxycycline and Bactrim, followed by the wound clinic per hpi. On arrival patient is chronically ill-appearing but no acute distress, afebrile stable vital signs. On exam the patient has scant intermittent wheezes but is otherwise clear. Her right lower leg demonstrates mild erythema, edema, warmth and tenderness without crepitus. Her left BKA stump demonstrates scant discharge from punctate orifice which the patient reports is chronic. EKG without overt acute ischemia. Chest x-ray negative for acute process. WBC, H/H and platelets within normal limits. Chemistry without acidosis. Creatinine 1.4 within patient's prior range of values in the setting of CKD. Lactate is within normal limits. Troponin 0.08 in the setting of history of heart failure with chronic elevations that are similar. BNP 17 K decreased from prior values. Films of right lower extremity without evidence of osseous involvement. Considering patient failed outpatient treatment for her cellulitis reasonable to admit the patient for further management. Will treat initially with vancomycin and ceftriaxone. Wound clinic cultures from the patient's punctate wound of her right lower extremity did grow MRSA previously that would be sensitive to vancomycin. Case was discussed with Valerie Talley, who will evaluate the patient for admission. Impression & Plan Cellulitis, COPD exacerbation, History of MRSA infection, Elevated troponin Discharge Plan Visit Data *Final* Discharge Date/Time: 09/13/19 18:07 Chief Complaint: Shortness of Breath/Dyspnea Stated Complaint: SOB ED Provider: Tomas Santos Discharge Problem: Cellulitis, COPD exacerbation, History of MRSA infection, Elevated troponin Patient Disposition: Admitted As Inpatient Discharge Instructions Interventions: ED Discharge Assessment Last Done: 09/13/19 18:07 The scribe's documentation has been prepared under my direction and personally reviewed by me in its entirety. I confirm that the note above accurately reflects all work, treatment, procedures, and medical decision making performed by me.
--- NOTE | 2019-09-13 21:43 | Ultrasound Report ---
US arterial duplex LE RT CLINICAL HISTORY: Nonhealing wound. History of peripheral vascular disease. COMPARISON STUDY: No previous studies for comparison. FINDINGS: There is triphasic flow within the common femoral artery. There is triphasic flow within the proximal superficial femoral artery. There is a proximal to mid superficial femoral artery stenosis with monophasic flow distally. There i s an area of suspected occlusion involving the distal superficial femoral artery. There is a prominen t collateral vessel. There is monophasic flow within the popliteal. There is monophasic flow within the posterior tibial a rtery. There is monophasic flow within the peroneal artery. There is monophasic flow within the anter ior tibial artery. IMPRESSION: 1. Proximal to mid superficial femoral artery stenosis with an area of mid to distal superficial femo ral artery occlusion with monophasic popliteal and three-vessel lower extremity runoff. Electronically signed by: Tonny Mar M.D. 09/13/2019 9:42 PM
--- NOTE | 2019-09-13 22:46 | Magnetic Resonance Report ---
MR foot RT w/o con CLINICAL HISTORY: Great toe ulcer. Possible osteomyelitis. COMPARISON STUDY: X-ray dated 09/13/2019 FINDINGS: Imaging was performed in the axial, sagittal, and coronal planes. The examination is moderately limited from a technical standpoint secondary to motion artifact. There are extensive neuropathic changes within the midfoot. There is evidence for chronic Charcot fra cture subluxation. There is bony fragmentation of the midfoot. There is a 7 mm cyst within the proximal phalanx of the great toe. There are osteoarthritic changes at the level of the first metatarsal phalangeal joint. There is T2 edema involving the distal phalanx of the great toe but no definite T1 edema is visualize d. The MR findings are therefore indicative of osteitis, without osteomyelitis. There are no fluid collections to indicate an abscess. There is moderate dorsal soft tissue edema. IMPRESSION: 1. Extensive neuropathic changes involving the midfoot 2. Osteoarthritic changes involving the first metatarsal phalangeal joint 3. T2 edema involving the distal phalanx of the great toe but no definite T1 edema. The findings ther efore indicate an osteitis, without evidence of osteomyelitis Electronically signed by: Tonny Mar M.D. 09/13/2019 10:44 PM
[2019-09-13] MEDS: ALBUT/IPRATROP 3MG/0.5MG NEB 3 ML VIAL NEB SCH (23:07)
[2019-09-13] MEDS: TRAMADOL HCL 50 MG TABLET PO PRN (23:50)
[2019-09-14] MEDS: ALBUT/IPRATROP 3MG/0.5MG NEB 3 ML VIAL NEB SCH ×6 (03:43→23:01)
[2019-09-14 04:39] LABS: Hematocrit (blood only) 37.3 % (37-47); Hemoglobin 12.4 g/dL (12.0-16.0); Mean Corpuscular Hemoglobin 26.9 pg (25-34); Mean Corpuscular Hgb Conc 33.2 g/dL (32-36); Mean Corpuscular Volume 80.9 fL (80-100); Mean Platelet Volume 9.5 fL (7.4-10.4); Platelet Count 146 K/uL (130-400); RDW Coefficient of Variation 16.4 % (11.5-14.5); RDW Standard Deviation 49.1 fL (36.4-46.3); Red Blood Count 4.61 M/uL (4.2-5.4); White Blood Count 2.85 K/uL (4.8-10.8)
[2019-09-14 04:42] LABS: BUN Creatinine Ratio 32.8 (10-20); Blood Urea Nitrogen 45 mg/dl (7-18); Calcium 8.7 mg/dl (8.5-10.1); Carbon Dioxide 27 mmol/L (21-32); Chloride 96 mmol/L (98-107); Creatinine Clr Calc Pharmacy 32.4 ml/min; Est GFR (African American) 45.8; Est GFR (Non-African American) 39.5; Glucose 147 mg/dl (70-99); Potassium 4.3 mmol/L (3.5-5.1); Sodium 130 mmol/L (136-145)
[2019-09-14 04:54] LABS: C Reactive Protein < 0.29 mg/dl (0-0.29); Troponin I 0.053 ng/ml (0-0.045)
[2019-09-14] MEDS: HEPARIN SOD 5,000 UNIT/0.5 ML VIAL SQ SCH ×3 (06:24→21:17)
[2019-09-14] MEDS: BUDESONIDE/FORMOTEROL FUMARATE 160/4.5 60 PUFFS/INHALER INH SCH ×2 (08:04→21:19)
[2019-09-14] MEDS: FERROUS GLUCONATE 324 MG TAB PO SCH ×3 (08:04→16:03)
[2019-09-14] MEDS: FOLIC ACID 1 MG TAB PO SCH (08:04)
[2019-09-14] MEDS: FUROSEMIDE 40 MG TAB PO SCH ×2 (08:04→16:06)
[2019-09-14] MEDS: ASPIRIN 81 MG ECTAB PO SCH (08:04)
[2019-09-14] MEDS: MAGNESIUM OXIDE 400 MG TAB PO SCH (08:05)
[2019-09-14] MEDS: MULTIVITAMIN TAB PO SCH (08:05)
[2019-09-14] MEDS: OMEGA-3 (PURIFIED FISH OIL) 1 GM CAP PO SCH ×2 (08:05→21:18)
[2019-09-14] MEDS: VITAMIN B COMPLEX TAB PO SCH (08:05)
[2019-09-14] MEDS: GABAPENTIN 800 MG TAB PO SCH ×3 (08:05→21:19)
[2019-09-14] MEDS: PANTOprazole 40 MG TAB PO SCH (08:06)
[2019-09-14] MEDS: METOPROLOL SUCC 25MG EXT REL TAB PO SCH (08:06)
[2019-09-14] MEDS: NICOTINE 21 MG/24 HR TDSY TD SCH (08:07)
--- NOTE | 2019-09-14 08:49 | Hospitalist Progress Note ---
Date of Service September 14, 2019 Assessment & Plan (1) Cellulitis of right lower extremity: (2) Wound of right lower extremity: (3) PAD (peripheral artery disease): History of PAD, MARLYS performed 04/2018 demonstrated moderate arterial occlusive disease in the right lower extremity Referred from the wound care center for persistent right great toe wound, lower extremity cellulitis Has been treated with doxycycline x2 courses -Right great toe wound culture from 09/02 growing MRSA started on Bactrim September 07 with no improvement -- Foot MRI: No signs of osteomyelitis Lexiscan lower extremity artery: Proximal to mid superficial femoral artery stenosis with an area of mid to distal superficial femoral artery occlusion with monophasic popliteal and three-vessel lower extremity runoff. - ID consulted, recommend IV ceftaroline Vascular surgery consulted, recommend angiography and possible intervention Wound care service consulted (4) Elevated troponin: Troponins 0 0.08, 0.06, 0.05 EKG no signs of acute ischemia or infarct Review of previous troponin levels show chronic mild elevation of troponin Likely secondary to CKD (5) COPD (chronic obstructive pulmonary disease): History of mild wheezing on admission Chest x-ray: No signs of pneumonia Scheduled nebs ordered Wheezing resolved today (6) Chronic combined systolic and diastolic CHF (congestive heart failure): Euvolemic Creatinine mildly elevated, now at 1.37, baseline 1.2 Continue usual Lasix 40 mg twice a day, hold spironolactone this evening Monitor creatinine and titrate diuretics accordingly (7) DM type 2 (diabetes mellitus, type 2): -Diet-controlled -Hgb A1c 6.1 06/2019 Blood glucose is morning 147 (8) CKD (chronic kidney disease), stage III: - baseline creat runs in the low 1's - creat noted to be 1.4 on admission, 1.37 today Continue usual Lasix 40 mg twice a day, hold spironolactone this evening Monitor creatinine and titrate diuretics accordingly (9) History of left below knee amputation: -History of left BKA following nonhealing osteomyelitis -Has a small chronic pinpoint wound to left BKA stump -On IV ceftaroline, monitor closely (10) DVT prophylaxis: -SQ heparin Disposition We will order PT and OT evaluation Lives at home with her PCP follow-up with Dr. Dudley Follow up with vascular surgery service Follow-up with infectious disease service Follow-up with wound care center Subjective Follow-up for right leg cellulitis, nonhealing wound right big toe Seen sitting up in bed, comfortable, in good spirits States she feels improved compared to yesterday Has minimal discomfort on the right leg and foot Denies dyspnea, cough, sputum production, fevers or chills No other symptoms Review of Systems Review of Systems: All systems reviewed & are unremarkable except as noted in HPI & below Physical Exam Physical Exam: General- oriented x 3, not in distress, speaks in sentences with no effort or accessory muscle use Head- atraumatic Eyes- PERRL, EOMI, anicteric ENT- oropharynx clear Neck- supple, no JVD, no adenopathy, no thyromegaly; carotids +2/2, no bruits appreciated Lungs- clear to auscultation bilaterally, no wheezing, no crackles Heart- normal rate, regular rhythm; positive grade 3 out of 6 holosystolic murmur at the apex, no gallop, no rub appreciated Abdomen- normal bowel sounds, nondistended, soft, nontender, no masses or hepat osplenomegaly Extremities-right leg: Positive moderate edema of the lower leg with mild erythema, positive moderate edema of the foot, with healing small wound on the right big toe Left leg: Status post BKA, positive moderate erythema on the stump, small wound healing well Neuro- alert, oriented x 3; CN 2-12 grossly intact; motor 5/5 bilaterally;sensation 100% on all extremities; no other gross focal neurologic deficits Skin- warm & dry Results & Data Vital Signs (Past 12 Hours) Vital Signs Temp Pulse Pulse Resp BP Pulse Ox 09/14/19 08:07 117/70 09/14/19 07:38 87 19 96 09/14/19 07:26 79 09/14/19 04:28 37.0 C 67 20 131/63 91 09/14/19 03:43 71 16 93 09/14/19 00:14 75 09/13/19 23:35 36.7 C 68 18 124/65 92 09/13/19 23:08 77 16 91 Laboratory Results Laboratory Results - last 24 hr 09/13/19 09/13/19 09/13/19 16:00 16:43 16:43 WBC RBC Hgb Hct MCV MCH MCHC RDW Std Deviation RDW Coeff of Tiburcio Plt Count MPV ESR 79 H Sodium Potassium Chloride Carbon Dioxide Anion Gap BUN Creatinine Est Cr Clr Drug Dosing Est GFR ( Amer) Est GFR (Non-Af Amer) BUN/Creatinine Ratio Glucose Lactate 1.6 Calcium Phosphorus 4.5 Total Bilirubin 0.4 Alkaline Phosphatase 161 H Troponin I 0.080 H* C-Reactive Protein < 0.29 NT-Pro-B Natriuret Pep 47279 H Total Protein 8.4 H Globulin 5.0 H Albumin/Globulin Ratio 0.7 L TSH 3.300 Hepatitis C Ab Screen 09/13/19 09/14/19 09/14/19 22:52 03:59 03:59 WBC 2.85 L RBC 4.61 Hgb 12.4 Hct 37.3 MCV 80.9 MCH 26.9 MCHC 33.2 RDW Std Deviation 49.1 H RDW Coeff of Tiburcio 16.4 H Plt Count 146 MPV 9.5 ESR Sodium 130 L Potassium 4.3 Chloride 96 L Carbon Dioxide 27 Anion Gap 7.0 BUN 45 H Creatinine 1.37 H Est Cr Clr Drug Dosing 32.4 Est GFR ( Amer) 45.8 Est GFR (Non-Af Amer) 39.5 BUN/Creatinine Ratio 32.8 H Glucose 147 H Lactate Calcium 8.7 Phosphorus Total Bilirubin Alkaline Phosphatase Troponin I 0.065 H* 0.053 H* C-Reactive Protein < 0.29 NT-Pro-B Natriuret Pep Total Protein Globulin Albumin/Globulin Ratio TSH Hepatitis C Ab Screen 09/14/19 09/14/19 03:59 03:59 WBC RBC Hgb Hct MCV MCH MCHC RDW Std Deviation RDW Coeff of Tiburcio Plt Count MPV ESR 84 H Sodium Potassium Chloride Carbon Dioxide Anion Gap BUN Creatinine Est Cr Clr Drug Dosing Est GFR ( Amer) Est GFR (Non-Af Amer) BUN/Creatinine Ratio Glucose Lactate Calcium Phosphorus Total Bilirubin Alkaline Phosphatase Troponin I C-Reactive Protein NT-Pro-B Natriuret Pep Total Protein Globulin Albumin/Globulin Ratio TSH Hepatitis C Ab Screen Neg
[2019-09-14] MEDS ORDERED: SPIRONOLACTONE 100 MG TAB PO SCH (09:00)
--- NOTE | 2019-09-14 10:58 | Infectious Disease Consult ---
Date of Consultation September 14, 2019 Assessment & Plan (1) Cellulitis of right lower extremity: Patient with cellulitis of the right lower extremity and foot with cultures previously positive for MRSA. Infection complicated by likely significant peripheral arterial disease. Will change patient to IV ceftaroline, await vascular surgery consult to see if further intervention is necessary. Length of IV antibiotics will be determined by clinical response. Will follow. (2) MRSA (methicillin resistant Staphylococcus aureus) infection: History of Present Illness Reason for Consultation: Right lower extremity cellulitis, failed outpatient treatment, history of MRSA Attending Physician: Dejuan Davis MD History of Present Illness 60 female with history of diabetes mellitus, coronary artery disease, chronic systolic and diastolic heart failure, stage III chronic kidney disease, status post left BKA, who has been followed at the wound care center for right foot infection as well as left stump chronic wound. Has been on oral antibiotics for MRSA infection, first on doxycycline and then Bactrim without much improvement. She was seen at the wound care center and found to have evidence of right leg cellulitis and was admitted to the hospital for further management. She has been started on IV vancomycin. She has had MRI scan of the foot which shows evidence of Charcot changes but no obvious evidence of osteomyelitis. Arterial Dopplers suggest significant vascular disease involving the right leg. She denies any significant fever, chills, or other new systemic complaints. Allergies Allergy/AdvReac Type Severity Reaction Status Date / Time Penicillins Allergy Intermediate hives/upset Verified 09/13/19 16:36 stomach/diarrhea Iodinated Contrast Media AdvReac Intermediate severe Verified 09/13/19 16:36 [Iodinated Contrast- Oral vomiting and IV Dye] oxycodone [From Percocet] AdvReac Intermediate vomiting Verified 09/13/19 16:36 Home Medications Home Medications Medication Instructions Recorded Confirmed Type aspirin 81 mg tablet,delayed 81 mg PO QAM 07/22/18 09/13/19 History release citalopram 40 mg tablet 40 mg PO HS 07/22/18 09/13/19 History gabapentin 800 mg tablet 800 mg PO TID tab 07/22/18 09/13/19 History omega 1-kfs-pfu-fish oil 1,000 mg 1 cap PO BID cap 07/22/18 09/13/19 History (120 mg-180 mg) capsule Symbicort 2 puff INHALATION BID 03/01/19 09/13/19 History atorvastatin 80 mg PO HS 03/01/19 09/13/19 History ferrous gluconate 324 mg PO TID 03/01/19 09/13/19 History folic acid 1 mg PO QAM 03/01/19 09/13/19 History ipratropium-albuterol 3 ml INHALATION Q6H PRN 03/01/19 09/13/19 History metoprolol succinate 25 mg PO DAILY 03/01/19 09/13/19 History multivitamin 1 tab PO QAM 03/01/19 09/13/19 History omeprazole 40 mg PO QAM 03/01/19 09/13/19 History vitamin B complex 1 tab PO QAM 03/01/19 09/13/19 History furosemide [Lasix] 40 mg PO BID 04/05/19 09/13/19 History magnesium oxide 400 mg PO DAILY 04/05/19 09/13/19 History nitroglycerin 0.4 mg SUBLINGUAL UD PRN 04/05/19 09/13/19 History tramadol 50 mg PO BID PRN 07/15/19 09/13/19 History tiotropium bromide 18 mcg capsule 1 cap INH DAILY 09/02/19 09/13/19 History with inhalation device sulfamethoxazole 800 1 tab PO BID 14 Days #28 tab 09/06/19 09/13/19 Rx mg-trimethoprim 160 mg tablet spironolactone 100 mg PO DAILY 09/13/19 09/13/19 History Patient History Medical History Valvular heart disease (Chronic) mod-severe MR, mod TR History of left below knee amputation (Chronic) SARANYA (iron deficiency anemia) (Chronic) Ischemic cardiomyopathy (Chronic) Chronic combined systolic and diastolic CHF (congestive heart failure) (Chronic) EF 40 to 44%, grade 2 diastolic dysfunction CAD (coronary artery disease) (Chronic) 2004 -PCI to unknown vessel PAD (peripheral artery disease) (Chronic) COPD (chronic obstructive pulmonary disease) (Chronic) CKD (chronic kidney disease), stage III (Chronic) pt denies having any problems with kidneys. Diabetic peripheral neuropathy (Chronic) DM type 2 (diabetes mellitus, type 2) (Chronic) Charcot foot due to diabetes mellitus (Chronic) Surgical History History of hysterectomy (Chronic) supracervical History of bilateral carotid endarterectomy (Chronic) History of cholecystectomy (Chronic) Family History Father Family history of diabetes mellitus Sister Breast cancer Social History Preferred Language: Croatian Communication Ability: Effective Visual Impairment: Limited Hearing Ability: Normal Collections Professional Required: No Beliefs That Will Affect Care: None marital status: Current Living Situation: Spouse current occupational status: disabled Other Information That Helps Us Care for You: No Feels Safe at Home: Yes Safety Concerns: Feels Safe At This Time Smoking Status: Current every day smoker Tobacco Type: cigarettes ; Cigarettes Per Day: 5 ; Second Hand Exposure: Yes ; Hx Alcohol Use: No Hx Substance Use: No Review of Systems Review of Systems: All systems reviewed & are unremarkable except as noted in HPI & below Physical Exam Constitutional: WD/WN, vitals as above comfortable; no acute distress Eyes: PERRL, conjunctivae normal, anicteric sclerae ENMT: external ear and nose normal, oropharynx normal Neck: trachea midline, no thyromegaly neck nontender Respiratory: normal respiratory effort, lungs clear to auscultation normal percussion; does not use accessory muscles Cardiovascular: Rate/Rhythm: regular rate and regular rhythm Heart Sounds: normal S1 and normal S2; no gallop, no murmur and no cardiac rub Vessels: normal peripheral pulses; no JVD Gastrointestinal (Abdomen): normal bowel sounds, soft, nontender, no hepatosplenomegaly Musculoskeletal: Head/Neck/Chest: normocephalic, head atraumatic and neck supple Spine: thoracic spine normal to inspection and lumbar spine normal to inspection; no cervical spinal tenderness Left BKA with small open wound, appears superficial Skin: no rashes, warm and dry normal turgor and + erythema (Right lower extremity below the knee, also involving the foot, purulence from right nailbed) Neurologic: patellar DTR's 2+ bilat, sensation intact no focal motor deficits Psychiatric: A+Ox3, euthymic affect Orientation: cooperative Lymphatic: no cervical or axillary lymphadenopathy no inguinal lymphadenopathy Results & Data Vital Signs (Past 12 Hours) Vital Signs Temp Pulse Pulse Resp BP Pulse Ox 09/14/19 08:07 117/70 09/14/19 08:00 37.0 C 77 20 117/70 96 09/14/19 07:38 87 19 96 09/14/19 07:26 79 09/14/19 04:28 37.0 C 67 20 131/63 91 09/14/19 03:43 71 16 93 09/14/19 00:14 75 09/13/19 23:35 36.7 C 68 18 124/65 92 09/13/19 23:08 77 16 91 Laboratory Results Short CBC 09/13/19 09/14/19 Range/Units 16:00 03:59 WBC 4.91 2.85 L (4.8-10.8) K/uL Hgb 13.6 12.4 (12.0-16.0) g/dL Hct 42.0 37.3 (37-47) % Plt Count 172 146 (130-400) K/uL BMP 09/13/19 09/14/19 16:00 03:59 Sodium 135 L 130 L Potassium 4.3 4.3 Chloride 99 96 L Carbon Dioxide 29 27 BUN 49 H 45 H Creatinine 1.41 H 1.37 H Glucose 103 H 147 H Calcium 8.9 8.7 Cardiac Enzymes 09/13/19 09/13/19 09/14/19 Range/Units 16:00 22:52 03:59 Troponin I 0.080 H* 0.065 H* 0.053 H* (0-0.045) ng/ml Liver Function 09/13/19 Range/Units 16:00 Total Bilirubin 0.4 (0.2-1) mg/dl AST 23 (15-37) U/L ALT 25 (12-78) U/L Alkaline Phosphatase 161 H (45-117) U/L Albumin 3.4 (3.4-5.0) gm/dl Diagnostic Findings Spec: [id number] Collected: 09/02/19 Received: 09/02/[address]: Antonia Mckeon CRNP Source: Toe,Right Great OV Order: Ordered: Surf Wnd Cul/Sm Procedure Result Verified Site Gram Stain Final 09/03/1908 Gram Stain Result No Epithelial Cells No WBCs Seen Many Gram Positive Cocci Surface Wound Culture Final 09/04/19 Organism 1 Staph aureus MRSA Quantity Moderate Sens Sensitivities to Follow +MixWound Plus Low Counts of Probable Skin Smita Sensitivity results indicate a Methicillin-Resistant Staph aureus. Phoned to [facility] on 09/04/19 at 0743 by Nadir Ferguson. MRSA RX M.I.C. --- --------- Clindamycin R >4 Daptomycin S <=0.5 Erythromycin R >4 Oxacillin R >2 Rifampin S <=1 Tetracycline R >8 Trimeth/Sulfa S <=0.5/9.5 Vancomycin S 1 S = SENSITIVE I = INTERMEDIATE R = RESISTANT Name: MEREDITH MARTINEZ : 1950 PAGE 1 Printed: 09/14/19 1825 END OF REPORT MR foot RT w/o con CLINICAL HISTORY: Great toe ulcer. Possible osteomyelitis. COMPARISON STUDY: X-ray dated 09/13/2019 FINDINGS: Imaging was performed in the axial, sagittal, and coronal planes. The examination is moderately limited from a technical standpoint secondary to motion artifact. There are extensive neuropathic changes within the midfoot. There is evidence for chronic Charcot fracture subluxation. There is bony fragmentation of the midfoot. There is a 7 mm cyst within the proximal phalanx of the great toe. There are osteoarthritic changes at the level of the first metatarsal phalangeal joint. There is T2 edema involving the distal phalanx of the great toe but no definite T1 edema is visualized. The MR findings are therefore indicative of osteitis, without osteomyelitis. There are no fluid collections to indicate an abscess. There is moderate dorsal soft tissue edema. IMPRESSION: 1. Extensive neuropathic changes involving the midfoot 2. Osteoarthritic changes involving the first metatarsal phalangeal joint 3. T2 edema involving the distal phalanx of the great toe but no definite T1 edema. The findings therefore indicate an osteitis, without evidence of osteomyelitis Electronically signed by: Tonny Mar M.D. 09/13/2019 10:44 PM Dictated: 09/13/192238 Transcribed: 09/13/192238 PG Care Time/CCT Total # of Minutes Spent Total Time Spent with Patient: Total time spent is greater than 50% in coordination of care (as documented) at patient's floor/unit and/or counseling patient:
--- NOTE | 2019-09-14 11:17 | Consultation ---
Date of Consultation September 14, 2019 Assessment & Plan (1) PAD (peripheral artery disease): This is a 68-year-old female with a history of peripheral arterial disease and vascular disease now with chronic critical limb ischemia of the right lower extremity with a chronic nonhealing wound on the right great toe. Patient underwent a duplex ultrasound which revealed a R mid SFA occlusion with patent three-vessel runoff. 1- After discussion with the patient and evaluating her overall status, it seems like this wound has been around since August and has not been healing she also had an episode of cellulitis. At this time I believe this warrants a further evaluation with an angiogram and possible intervention. At the time of evaluation if the angiogram and attempted intervention is not successful then we can evaluate the patient with further work-up and using the angiogram findings to evaluate for a lower extremity bypass. 2- Patient is already on a statin and recommend continuing that as well as continuing the aspirin. Of note the patient had a history of vaginal bleeding after being placed on Plavix Following her cardiac stent however she underwent a total abdominal hysterectomy and the issues of endometriosis leading to vaginal bleeding was resolved so she would be a candidate for placement on Plavix should we end up placing a SFA stent. 3- We have discussed with the patient the history of smoking as she revealed that she has been smoking for approximately 55 years. We have counseled her on smoking cessation and discussed with her the risks and possible complications of continuing to smoke with her history of peripheral arterial disease. 4- Thank you for involving us in the care of this patient and please feel free to contact us for any further questions or concerns. Patient was seen, examined, and chart reviewed. Agree with exam and treatment plan of the Vascular resident. History of Present Illness Attending Physician: Dejuan Davis MD Allergies Allergy/AdvReac Type Severity Reaction Status Date / Time Penicillins Allergy Intermediate hives/upset Verified 09/13/19 16:36 stomach/diarrhea Iodinated Contrast Media AdvReac Intermediate severe Verified 09/13/19 16:36 [Iodinated Contrast- Oral vomiting and IV Dye] oxycodone [From Percocet] AdvReac Intermediate vomiting Verified 09/13/19 16:36 Home Medications Home Medications Medication Instructions Recorded Confirmed Type aspirin 81 mg tablet,delayed 81 mg PO QAM 07/22/18 09/13/19 History release citalopram 40 mg tablet 40 mg PO HS 07/22/18 09/13/19 History gabapentin 800 mg tablet 800 mg PO TID tab 07/22/18 09/13/19 History omega 6-cjk-rhf-fish oil 1,000 mg 1 cap PO BID cap 07/22/18 09/13/19 History (120 mg-180 mg) capsule Symbicort 2 puff INHALATION BID 03/01/19 09/13/19 History atorvastatin 80 mg PO HS 03/01/19 09/13/19 History ferrous gluconate 324 mg PO TID 03/01/19 09/13/19 History folic acid 1 mg PO QAM 03/01/19 09/13/19 History ipratropium-albuterol 3 ml INHALATION Q6H PRN 03/01/19 09/13/19 History metoprolol succinate 25 mg PO DAILY 03/01/19 09/13/19 History multivitamin 1 tab PO QAM 03/01/19 09/13/19 History omeprazole 40 mg PO QAM 03/01/19 09/13/19 History vitamin B complex 1 tab PO QAM 03/01/19 09/13/19 History furosemide [Lasix] 40 mg PO BID 04/05/19 09/13/19 History magnesium oxide 400 mg PO DAILY 04/05/19 09/13/19 History nitroglycerin 0.4 mg SUBLINGUAL UD PRN 04/05/19 09/13/19 History tramadol 50 mg PO BID PRN 07/15/19 09/13/19 History tiotropium bromide 18 mcg capsule 1 cap INH DAILY 09/02/19 09/13/19 History with inhalation device sulfamethoxazole 800 1 tab PO BID 14 Days #28 tab 09/06/19 09/13/19 Rx mg-trimethoprim 160 mg tablet spironolactone 100 mg PO DAILY 09/13/19 09/13/19 History Patient History Medical History Valvular heart disease (Chronic) mod-severe MR, mod TR History of left below knee amputation (Chronic) SARANYA (iron deficiency anemia) (Chronic) Ischemic cardiomyopathy (Chronic) Chronic combined systolic and diastolic CHF (congestive heart failure) (Chronic) EF 40 to 44%, grade 2 diastolic dysfunction CAD (coronary artery disease) (Chronic) 2004 -PCI to unknown vessel PAD (peripheral artery disease) (Chronic) COPD (chronic obstructive pulmonary disease) (Chronic) CKD (chronic kidney disease), stage III (Chronic) pt denies having any problems with kidneys. Diabetic peripheral neuropathy (Chronic) DM type 2 (diabetes mellitus, type 2) (Chronic) Charcot foot due to diabetes mellitus (Chronic) Surgical History History of hysterectomy (Chronic) supracervical History of bilateral carotid endarterectomy (Chronic) History of cholecystectomy (Chronic) Family History Father Family history of diabetes mellitus Sister Breast cancer Social History Preferred Language: Kenyan Communication Ability: Effective Visual Impairment: Limited Hearing Ability: Normal Manager Financial Required: No Beliefs That Will Affect Care: None marital status: Current Living Situation: Spouse current occupational status: disabled Other Information That Helps Us Care for You: No Feels Safe at Home: Yes Safety Concerns: Feels Safe At This Time Smoking Status: Current every day smoker Tobacco Type: cigarettes ; Cigarettes Per Day: 5 ; Second Hand Exposure: Yes ; Hx Alcohol Use: No Hx Substance Use: No Review of Systems Review of Systems: All systems reviewed & are unremarkable except as noted in HPI & below Musculoskeletal: Patient reports a long history of peripheral neuropathy. Patient reports some blisters on the right lower extremity as well as a small wound at the base of her left stump. Physical Exam Constitutional: well developed, well nourished, well groomed, cooperative and comfortable; no acute distress, not in distress and not diaphoretic Eyes: PERRL and EOM intact bilaterally ENMT: Nose: no nasal discharge Neck: trachea midline Well-healed bilateral carotid endarterectomy incisions. Respiratory: normal respiratory effort, lungs clear to auscultation no respiratory distress and no cough Cardiovascular: Rate/Rhythm: regular rate Musculoskeletal: Extremities: + foot abnormality (Charcot foot deformity) Right Patient has a amputation on the left side below the knee with a small 2 mm wound at the base of the stump. The right lower extremity has a small 2 mm wound at the tip of the right toe with no erythema or discharge or drainage surrounding it. Patient has a small scab in the medial aspect of her right calf. Right lower extremity is warm with motor and intact patient has a history of neuropathy and has no sensory feeling in the right leg. Patient has palpable femoral pulses bilaterally. Bilateral groins appeared clean with no rash. Skin: no rashes, warm and dry Neurologic: CN's II-XI intact bilaterally Motor/Sensory: + sensory deficit (Peripheral neuropathy in the right lower extremity.); no tremor Psychiatric: Orientation: alert, oriented x 3 and cooperative Apperance: appropriately groomed Eye Contact: good eye contact Speech: normal rate/rhythm/volume of speech Results & Data Vital Signs (Past 12 Hours) Vital Signs Temp Pulse Pulse Resp BP Pulse Ox 09/14/19 10:53 79 09/14/19 08:07 117/70 09/14/19 08:00 37.0 C 77 20 117/70 96 09/14/19 07:38 87 19 96 09/14/19 07:26 79 09/14/19 04:28 37.0 C 67 20 131/63 91 09/14/19 03:43 71 16 93 09/14/19 00:14 75 09/13/19 23:35 36.7 C 68 18 124/65 92 09/13/19 23:08 77 16 91
[2019-09-14] MEDS ORDERED: VANCOMYCIN HCL 750 MG in SODIUM CHLORIDE 0.9% 250 ML IV SCH (12:00)
[2019-09-14] MEDS: CEFTAROLINE FOSAMIL ACETATE 400 MG in SODIUM CHLORIDE 0.9% 250 ML IV SCH (14:29)
[2019-09-14] MEDS: TRAMADOL HCL 50 MG TABLET PO PRN (18:08)
[2019-09-14] MEDS: LACTOBACILLUS ACIDOPHILUS (FLORANEX) TAB PO SCH (21:16)
[2019-09-14] MEDS: CITALOPRAM 40 MG TAB PO SCH (21:18)
[2019-09-14] MEDS: ATORVASTATIN 40 MG TAB PO SCH (21:18)
[2019-09-15] MEDS: CEFTAROLINE FOSAMIL ACETATE 400 MG in SODIUM CHLORIDE 0.9% 250 ML IV SCH (00:09)
[2019-09-15] MEDS: ALBUT/IPRATROP 3MG/0.5MG NEB 3 ML VIAL NEB SCH ×6 (02:43→23:33)
[2019-09-15] MEDS: HEPARIN SOD 5,000 UNIT/0.5 ML VIAL SQ SCH ×3 (04:54→20:22)
[2019-09-15 06:37] LABS: BUN Creatinine Ratio 31.9 (10-20); Blood Urea Nitrogen 48 mg/dl (7-18); Calcium 9.4 mg/dl (8.5-10.1); Carbon Dioxide 31 mmol/L (21-32); Chloride 97 mmol/L (98-107); Creatinine Clr Calc Pharmacy 29.2 ml/min; Est GFR (African American) 41.1; Est GFR (Non-African American) 35.4; Glucose 111 mg/dl (70-99); Potassium 4.5 mmol/L (3.5-5.1); Sodium 133 mmol/L (136-145)
[2019-09-15 06:38] LABS: C Reactive Protein < 0.29 mg/dl (0-0.29)
[2019-09-15] MEDS: METOPROLOL SUCC 25MG EXT REL TAB PO SCH (07:51)
[2019-09-15] MEDS: BUDESONIDE/FORMOTEROL FUMARATE 160/4.5 60 PUFFS/INHALER INH SCH ×2 (07:51→20:21)
[2019-09-15] MEDS: VITAMIN B COMPLEX TAB PO SCH (07:51)
[2019-09-15] MEDS: NICOTINE 21 MG/24 HR TDSY TD SCH (07:51)
[2019-09-15] MEDS: FUROSEMIDE 40 MG TAB PO SCH (07:52)
[2019-09-15] MEDS: PANTOprazole 40 MG TAB PO SCH (07:52)
[2019-09-15] MEDS: GABAPENTIN 800 MG TAB PO SCH ×3 (07:52→20:21)
[2019-09-15] MEDS: ASPIRIN 81 MG ECTAB PO SCH (07:52)
[2019-09-15] MEDS: OMEGA-3 (PURIFIED FISH OIL) 1 GM CAP PO SCH ×2 (07:52→20:22)
[2019-09-15] MEDS: FOLIC ACID 1 MG TAB PO SCH (07:52)
[2019-09-15] MEDS: LACTOBACILLUS ACIDOPHILUS (FLORANEX) TAB PO SCH ×4 (07:52→20:21)
[2019-09-15] MEDS: MAGNESIUM OXIDE 400 MG TAB PO SCH (07:52)
[2019-09-15] MEDS: MULTIVITAMIN TAB PO SCH (07:52)
[2019-09-15] MEDS: FERROUS GLUCONATE 324 MG TAB PO SCH ×3 (07:53→17:01)
--- NOTE | 2019-09-15 08:45 | Hospitalist Progress Note ---
Date of Service September 15, 2019 Assessment & Plan (1) Cellulitis of right lower extremity: (2) Wound of right lower extremity: (3) PAD (peripheral artery disease): History of PAD, MARLYS performed 04/2018 demonstrated moderate arterial occlusive disease in the right lower extremity. MARLYS on 07/2019 showed abnormal right lower extremity ankle-brachial index. Referred from the wound care center for persistent right great toe wound, lower extremity cellulitis Had been treated with doxycycline x2 courses -Right great toe wound culture from 09/02 growing MRSA started on Bactrim September 07 with no improvement -Right Foot MRI: No signs of osteomyelitis -Lexiscan lower extremity artery: Proximal to mid superficial femoral artery stenosis with an area of mid to distal superficial femoral artery occlusion with monophasic popliteal and three-vessel lower extremity runoff. ID on board for RLE cellulitis. Patient currently on iv ceftaroline. Will follow up ID regarding duration of antibiotics. Vascular surgery on board for PAD. Recommended angiography and possible intervention. Will clarify outpatient plans. She reports allergy to contrast many years ago. Stated she has had contrast with pretreatment with benadryl after that without allergies. Continue wound care. (4) Elevated troponin: Troponins 0 0.08, 0.06, 0.05 EKG no signs of acute ischemia or infarct Chronic elevation in the past Possibly due to CKD (5) COPD (chronic obstructive pulmonary disease): History of mild wheezing on admission which has resolved Chest x-ray: No signs of pneumonia Continue home nebs and prn as well (6) Chronic combined systolic and diastolic CHF (congestive heart failure): Euvolemic Creatinine continues to go up. Will hold lasix for today and reassess tomorrow. (7) DM type 2 (diabetes mellitus, type 2): Diet-controlled Hgb A1c reported to be 6.1 06/2019 (8) CKD (chronic kidney disease), stage III: Baseline creat runs in 1.1-1.2s in the past few months Creat noted to be 1.4 on admission, 1.5 today Patient has KADEN on CKD likely due to diuretics Creatinine has continued to rise. Spironolactone was initially held. Will hold lasix today and reassess Cr tomorrow (9) History of left below knee amputation: History of left BKA following nonhealing osteomyelitis Has a small chronic pinpoint wound to left BKA stump. Does not seem infected on exam today. Continue wound care (10) DVT prophylaxis: SQ heparin Counselled on smoking cessation Disposition Will follow up PT and OT evaluation Lives at home with her PCP follow-up with Dr. Dudley Follow up with vascular surgery service Follow-up with infectious disease service Follow-up with wound care center Subjective Patient seen and examined. Reports some pain around wound on right leg. Denied any fevers, chills, nausea, vomiting Denied any drainage from wound sites Denied any weakness Physical Exam Constitutional: WD/WN, vitals as above Eyes: PERRL, conjunctivae normal, anicteric sclerae ENMT: external ear and nose normal, oropharynx normal Neck: normal visual inspection Respiratory: normal respiratory effort, lungs clear to auscultation Cardiovascular: Rate/Rhythm: regular rate and regular rhythm Heart Sounds: + murmur (DOMINIQUE) Extremities: no pedal edema Gastrointestinal (Abdomen): normal bowel sounds, soft, nontender, no hepatosplenomegaly Musculoskeletal: Left BKA with dressing over stump, no obvious drainage or ulcer. Right Great toenail bed ulcer with dressing with a spot of purulent drainage. Right leg erythema, no tenderness. Clean dressing over scab on medial side of right leg. Neurologic: PERRL, EOMI, accommodation nl, no face palsy, no dysarthria Psychiatric: A+Ox3, euthymic affect Results & Data Vital Signs (Past 12 Hours) Vital Signs Temp Pulse Pulse Resp BP BP Pulse Ox 09/15/19 07:35 36.8 C 60 18 125/69 93 09/15/19 07:01 60 19 93 09/15/19 04:17 36.8 C 72 20 118/56 L 95 09/14/19 23:57 36.8 C 72 20 130/64 94 09/14/19 23:50 67 Laboratory Results [facility] 09/15/19 05:48 Sodium 133 L Potassium 4.5 Chloride 97 L Carbon Dioxide 31 BUN 48 H Creatinine 1.50 H Glucose 111 H Calcium 9.4 Diagnostic Findings MRI Right Foot. IMPRESSION: 1. Extensive neuropathic changes involving the midfoot 2. Osteoarthritic changes involving the first metatarsal phalangeal joint 3. T2 edema involving the distal phalanx of the great toe but no definite T1 edema. The findings therefore indicate an osteitis, without evidence of osteomyelitis Duplex scan LE artery IMPRESSION: 1. Proximal to mid superficial femoral artery stenosis with an area of mid to distal superficial femoral artery occlusion with monophasic popliteal and three-vessel lower extremity runoff.
[2019-09-15] MEDS: CEFTAROLINE FOSAMIL ACETATE 300 MG in SODIUM CHLORIDE 0.9% 250 ML IV SCH (12:43)
[2019-09-15] MEDS: ATORVASTATIN 40 MG TAB PO SCH (20:20)
[2019-09-15] MEDS: CITALOPRAM 40 MG TAB PO SCH (20:20)
[2019-09-15] MEDS ORDERED: VANCOMYCIN TROUGH ONE (23:30)
[2019-09-16] MEDS: CEFTAROLINE FOSAMIL ACETATE 300 MG in SODIUM CHLORIDE 0.9% 250 ML IV SCH ×2 (00:51→13:16)
[2019-09-16] MEDS: ALBUT/IPRATROP 3MG/0.5MG NEB 3 ML VIAL NEB SCH ×6 (04:03→23:49)
[2019-09-16] MEDS: HEPARIN SOD 5,000 UNIT/0.5 ML VIAL SQ SCH ×3 (05:45→22:01)
[2019-09-16 07:13] LABS: BUN Creatinine Ratio 41.9 (10-20); Calcium 8.8 mg/dl (8.5-10.1); Creatinine Clr Calc Pharmacy 37.2 ml/min; Est GFR (African American) 54.9; Est GFR (Non-African American) 47.4; Potassium 4.4 mmol/L (3.5-5.1)
[2019-09-16] MEDS: METOPROLOL SUCC 25MG EXT REL TAB PO SCH (07:44)
[2019-09-16] MEDS: MAGNESIUM OXIDE 400 MG TAB PO SCH (07:44)
[2019-09-16] MEDS: ASPIRIN 81 MG ECTAB PO SCH (07:44)
[2019-09-16] MEDS: GABAPENTIN 800 MG TAB PO SCH ×3 (07:44→21:31)
[2019-09-16] MEDS: FOLIC ACID 1 MG TAB PO SCH (07:44)
[2019-09-16] MEDS: VITAMIN B COMPLEX TAB PO SCH (07:44)
[2019-09-16] MEDS: MULTIVITAMIN TAB PO SCH (07:44)
[2019-09-16] MEDS: OMEGA-3 (PURIFIED FISH OIL) 1 GM CAP PO SCH ×2 (07:44→21:31)
[2019-09-16] MEDS: BUDESONIDE/FORMOTEROL FUMARATE 160/4.5 60 PUFFS/INHALER INH SCH ×2 (07:44→21:30)
[2019-09-16] MEDS: PANTOprazole 40 MG TAB PO SCH (07:44)
[2019-09-16] MEDS: LACTOBACILLUS ACIDOPHILUS (FLORANEX) TAB PO SCH ×4 (07:45→21:31)
[2019-09-16] MEDS: NICOTINE 21 MG/24 HR TDSY TD SCH (07:45)
[2019-09-16] MEDS: FERROUS GLUCONATE 324 MG TAB PO SCH ×3 (07:45→16:43)
--- NOTE | 2019-09-16 08:28 | Hospitalist Progress Note ---
Date of Service September 16, 2019 Assessment & Plan (1) Cellulitis of right lower extremity: (2) Wound of right lower extremity: (3) PAD (peripheral artery disease): History of PAD, MARLYS performed 04/2018 demonstrated moderate arterial occlusive disease in the right lower extremity. MARLYS on 07/2019 showed abnormal right lower extremity ankle-brachial index. Referred from the wound care center for persistent right great toe wound, lower extremity cellulitis Had been treated with doxycycline x2 courses -Right great toe wound culture from 09/02 growing MRSA started on Bactrim September 07 with no improvement -Right Foot MRI: No signs of osteomyelitis -Lexiscan lower extremity artery: Proximal to mid superficial femoral artery stenosis with an area of mid to distal superficial femoral artery occlusion with monophasic popliteal and three-vessel lower extremity runoff. ID on board for RLE cellulitis. Patient currently on iv ceftaroline. Discussed with Dr Blair who recommended iv ceftaroline for 2 weeks. Obtained consent for PICC /midline placement. Vascular surgery on board for PAD. Recommended angiography and possible intervention. I discussed with Dr Park yesterday. They will evaluate and plan the possible angiogram outpatient Continue wound care. (4) Elevated troponin: Troponins 0 0.08, 0.06, 0.05 EKG no signs of acute ischemia or infarct Chronic elevation in the past Possibly due to CKD (5) COPD (chronic obstructive pulmonary disease): History of mild wheezing on admission which has resolved Chest x-ray: No signs of pneumonia Continue home nebs and prn as well (6) Chronic combined systolic and diastolic CHF (congestive heart failure): Euvolemic Creatinine continues to go up. Will hold lasix for today and reassess tomorrow. HR mildly bradycardic likely due to metoprolol succinate. Hemodynamically stable. Continue and monitor BP (7) DM type 2 (diabetes mellitus, type 2): Diet-controlled Hgb A1c reported to be 6.1 06/2019 (8) CKD (chronic kidney disease), stage III: Baseline creat runs in 1.1-1.2s in the past few months Creat noted to be 1.4 on admission, 1.5 today Patient has KADEN on CKD likely due to diuretics Creatinine has continued to rise. Spironolactone was initially held. Will hold lasix today and reassess Cr tomorrow (9) History of left below knee amputation: History of left BKA following nonhealing osteomyelitis Has a small chronic pinpoint wound to left BKA stump. Does not seem infected on exam today. Continue wound care (10) DVT prophylaxis: SQ heparin Counselled on smoking cessation Disposition Possible discharge tomorrow Lives at home with her PCP follow-up with Dr. Dudley Follow up with vascular surgery service Follow-up with infectious disease service Follow-up with wound care center Subjective Patient seen and evaluated Reports some sore throat yesterday which she reports is under control Denied any cough, fevers, chills, nausea, vomiting Review of Systems Review of Systems: All systems reviewed and unremarkable except for mentioned above. Physical Exam Constitutional: well developed, well nourished and + well hydrated; no acute distress Eyes: PERRL, conjunctivae normal, anicteric sclerae ENMT: external ear and nose normal, oropharynx normal Neck: trachea midline, no thyromegaly normal visual inspection Respiratory: normal respiratory effort, lungs clear to auscultation Cardiovascular: Rate/Rhythm: regular rhythm and + bradycardic Heart Sounds: + murmur (DOMINIQUE) Extremities: no edema Gastrointestinal (Abdomen): normal bowel sounds, soft, nontender, no hepatosplenomegaly Musculoskeletal: Left BKA with clean dressing Right Great toenail bed ulcer with dressing with a spot of purulent drainage. Right leg erythema, no tenderness. Clean dressing over scab on medial side of right leg. Neurologic: no focal motor deficits Aox3 Psychiatric: A+Ox3, euthymic affect Results & Data Vital Signs (Past 12 Hours) Vital Signs Temp Pulse Pulse Resp BP BP Pulse Ox 09/16/19 07:37 36.8 C 54 L 20 100/49 L 95 09/16/19 07:25 55 L 18 97 09/16/19 04:54 37.0 C 88 20 114/69 93 09/16/19 01:03 36.5 C 59 L 19 130/64 93 09/16/19 00:44 62 Laboratory Results [facility] 09/16/19 06:04 Sodium 133 L Potassium 4.4 Chloride 98 Carbon Dioxide 31 BUN 49 H Creatinine 1.18 D Glucose 104 H Calcium 8.8
[2019-09-16] MEDS: TRAMADOL HCL 50 MG TABLET PO PRN (16:42)
--- NOTE | 2019-09-16 20:02 | Infectious Disease Progress Nt ---
Date of Service September 16, 2019 Assessment & Plan (1) Cellulitis of right lower extremity: Patient with cellulitis of the right lower extremity and foot with cultures previously positive for MRSA. Infection complicated by likely significant peripheral arterial disease. Patient will be continued on IV ceftaroline I recommended 14 days of therapy given poor response to oral antibiotics. Discussed with hospitalist. Will follow. (2) MRSA (methicillin resistant Staphylococcus aureus) infection: Subjective Patient seen in follow-up for right lower extremity cellulitis. States pain is slightly better today. Remains afebrile. Has mild sore throat. No other new complaints. Blood cultures remain negative to date. Review of Systems Review of Systems: All systems reviewed & are unremarkable except as noted in HPI & below Physical Exam Constitutional: WD/WN, vitals as above comfortable; no acute distress Eyes: PERRL, conjunctivae normal, anicteric sclerae ENMT: external ear and nose normal, oropharynx normal Neck: trachea midline, no thyromegaly neck nontender Respiratory: normal respiratory effort, lungs clear to auscultation normal percussion; does not use accessory muscles Cardiovascular: Rate/Rhythm: regular rate and regular rhythm Heart Sounds: normal S1 and normal S2; no gallop, no murmur and no cardiac rub Vessels: normal peripheral pulses; no JVD Gastrointestinal (Abdomen): normal bowel sounds, soft, nontender, no hepatosplenomegaly Musculoskeletal: Head/Neck/Chest: normocephalic, head atraumatic and neck supple Spine: thoracic spine normal to inspection and lumbar spine normal to inspection; no cervical spinal tenderness Skin: no rashes, warm and dry normal turgor and + erythema (Right lower extremity below the knee, also involving the foot, purulence from right nailbed) Neurologic: patellar DTR's 2+ bilat, sensation intact no focal motor deficits Psychiatric: A+Ox3, euthymic affect Orientation: cooperative Lymphatic: no cervical or axillary lymphadenopathy no inguinal lymphadenopathy Results & Data Vital Signs (Past 12 Hours) Vital Signs Temp Pulse Pulse Resp BP Pulse Ox 09/16/19 19:48 37.6 C H 84 18 121/65 92 09/16/19 16:00 66 09/16/19 15:50 37.1 C 57 L 18 103/49 L 94 09/16/19 15:37 58 L 18 93 09/16/19 11:43 60 18 96 Laboratory Results [facility] 09/16/19 06:04 Sodium 133 L Potassium 4.4 Chloride 98 Carbon Dioxide 31 BUN 49 H Creatinine 1.18 D Glucose 104 H Calcium 8.8 Diagnostic Findings Microbiology 09/13/19 16:57 Blood Aerobic Blood Culture - Preliminary No growth in Aerobic bottle after 48 hours. 09/13/19 16:57 Blood Anaerobic Blood Culture - Preliminary No growth in Anaerobic bottle after 48 hours. 09/13/19 16:43 Blood Aerobic Blood Culture - Preliminary No growth in Aerobic bottle after 48 hours. 09/13/19 16:43 Blood Anaerobic Blood Culture - Preliminary No growth in Anaerobic bottle after 48 hours. PG Care Time/CCT Total # of Minutes Spent Total Time Spent with Patient: Total time spent is greater than 50% in coordination of care (as documented) at patient's floor/unit and/or counseling patient:
[2019-09-16] MEDS: ATORVASTATIN 40 MG TAB PO SCH (21:31)
[2019-09-16] MEDS: CITALOPRAM 40 MG TAB PO SCH (21:31)
[2019-09-17] MEDS: CEFTAROLINE FOSAMIL ACETATE 300 MG in SODIUM CHLORIDE 0.9% 250 ML IV SCH ×2 (01:39→10:37)
[2019-09-17] MEDS: ALBUT/IPRATROP 3MG/0.5MG NEB 3 ML VIAL NEB SCH ×3 (03:14→11:15)
[2019-09-17] MEDS: TRAMADOL HCL 50 MG TABLET PO PRN ×2 (04:57→11:22)
[2019-09-17] MEDS: HEPARIN SOD 5,000 UNIT/0.5 ML VIAL SQ SCH (06:31)
[2019-09-17 06:39] LABS: BUN Creatinine Ratio 33.1 (10-20); Calcium 8.7 mg/dl (8.5-10.1); Creatinine Clr Calc Pharmacy 37.4 ml/min; Est GFR (African American) 53.8; Est GFR (Non-African American) 46.4; Potassium 4.4 mmol/L (3.5-5.1)
[2019-09-17 07:07] VITALS: O2SAT 96
--- NOTE | 2019-09-17 08:06 | Discharge Summary ---
Date of Service September 17, 2019 Admission HPI Per Admitting Provider 68-year-old female who presents the ED for evaluation of right leg infection. Patient developed an ulcer to the base of her right great toenail about 1 month ago. She had been on 2 courses of p.o. doxycycline. On 09/07, patient was started on Bactrim. She has been following closely with the wound care center. They offered patient admission to the hospital for IV antibiotics however she initially declined. She has had persistent redness and warmth to the right lower extremity. There has not been any drainage from the right great toe ulcer. She has a chronic wound to the left BKA stump. Patient reports this has been being treated with dressing changes. She denies increased drainage from this site. She denies fevers and chills. Yesterday, patient reports she developed some increasing shortness of breath and productive cough. She used her at home nebulizers without much relief. She denies chest pain. She reports intermittent episodes of lightheadedness and dizziness however denies any syncopal event. No abdominal pain, nausea, vomiting, diarrhea. She denies any urinary symptoms. In the ED, patient is afebrile without any leukocytosis. Right foot x-ray does not show any signs of osteomyelitis. CXR is negative for acute cardiopulmonary disease. Patient was given IV Vanco and IV ceftriaxone. She was also given IV Solu-Medrol and nebulizer treatment. Admission Exam Per Admitting Provider Constitutional: WD/WN, vitals as above Eyes: PERRL, conjunctivae normal, anicteric sclerae ENMT: external ear and nose normal, oropharynx normal Respiratory: normal respiratory effort; no respiratory distress Auscultation: + wheezes (Expiratory, bilateral bases) Cardiovascular: Rate/Rhythm: regular rate and regular rhythm Heart Sounds: + murmur (Grade 3/6 systolic) Vessels: + abnormal peripheral pulses (Diminished right pedal pulse however palpable) Extremities: + edema (Trace edema RLE) Gastrointestinal (Abdomen): normal bowel sounds, soft, nontender, no hepatosplenomegaly Musculoskeletal: no cyanosis or clubbing, extremities motor strength 5/5 Extremities: + amputation noted (Left BKA) Skin: no rashes, warm and dry ulcer noted to right great toe nail base - dried without any drainage; small pinpoint wound noted to right medical calf - no drainage; significant erythema and warmth noted to RLE extending from the foot to below the knee; small pinpoint wound noted to left BKA stump with small amount of purulent drainage, no surrounding erythema Neurologic: PERRL, EOMI, accommodation nl, no face palsy, no dysarthria Psychiatric: A+Ox3, euthymic affect Principal Diagnosis Right leg cellulitis Right superficial femoral artery stenosis Discharge Exam Constitutional well developed and well nourished; no acute distress Eyes PERRL, conjunctivae normal, anicteric sclerae ENMT external ear and nose normal, oropharynx normal Neck trachea midline, no thyromegaly Respiratory normal respiratory effort, lungs clear to auscultation Cardiovascular Rate/Rhythm: regular rate and regular rhythm Heart Sounds: + murmur (systolic ejection murmur) Extremities: no pedal edema Gastrointestinal (Abdomen) normal bowel sounds, soft, nontender, no hepatosplenomegaly Musculoskeletal Left BKA Clean dressing over right nailbed wound. Clean dressing over scab on right leg. Rheumatoid deformities across hand joints Neurologic PERRL, EOMI, accommodation nl, no face palsy, no dysarthria Psychiatric A+Ox3, euthymic affect Discharge Data Allergies Allergy/AdvReac Type Severity Reaction Status Date / Time Penicillins Allergy Intermediate hives/upset Verified 09/13/19 16:36 stomach/diarrhea Iodinated Contrast Media AdvReac Intermediate severe Verified 09/13/19 16:36 [Iodinated Contrast- Oral vomiting and IV Dye] oxycodone [From Percocet] AdvReac Intermediate vomiting Verified 09/13/19 16:36 Consultations 09/13/19 16:11 ED Decision to Admit Stat 09/13/19 19:14 Consult Case Management - Discharge Planning Routine Consult Infectious Diseases Routine 09/14/19 08:54 Consult Vascular Surgery Routine Ordered Studies 09/13/19 17:59 MR foot RT w/o con Routine 1. Extensive neuropathic changes involving the midfoot 2. Osteoarthritic changes involving the first metatarsal phalangeal joint 3. T2 edema involving the distal phalanx of the great toe but no definite T1 edema. The findings therefore indicate an osteitis, without evidence of osteomyelitis US arterial duplex LE RT Routine 1. Proximal to mid superficial femoral artery stenosis with an area of mid to distal superficial femoral artery occlusion with monophasic popliteal and three- vessel lower extremity runoff. Hospital Course (1) Cellulitis of right lower extremity: (2) Wound of right lower extremity: (3) PAD (peripheral artery disease): History of PAD, MARLYS performed 04/2018 demonstrated moderate arterial occlusive disease in the right lower extremity. MARLYS on 07/2019 showed abnormal right lower extremity ankle-brachial index. Referred from the wound care center for persistent right great toe wound, lower extremity cellulitis Had been treated with doxycycline x2 courses -Right great toe wound culture from 09/02 growing MRSA started on Bactrim September 07 with no improvement -Right Foot MRI: No signs of osteomyelitis -Lexiscan lower extremity artery: Proximal to mid superficial femoral artery stenosis with an area of mid to distal superficial femoral artery occlusion with monophasic popliteal and three-vessel lower extremity runoff. Evaluated by ID. Patient currently on iv ceftaroline. Will need to continue iv ceftaroline for 2 weeks. Got midline placement yesterday. Set up for home infusion made with nursing manager. Patient provided education about antibiotics. Midline needs to be removed once antibiotic is complete. Vascular surgery on board for PAD. Recommended angiography and possible intervention. Discussed with Dr Park. Patient will need to follow up vasuclar surgery outpatient for evaluation and plan the possible angiogram/intervention. Continue wound care outpatient (4) Elevated troponin: Troponins 0 0.08, 0.06, 0.05 EKG no signs of acute ischemia or infarct Chronic elevation in the past Possibly due to CKD (5) COPD (chronic obstructive pulmonary disease): History of mild wheezing on admission which has resolved Chest x-ray: No signs of pneumonia Continue home nebs l (6) Chronic combined systolic and diastolic CHF (congestive heart failure): Euvolemic Creatinine continues to go up. Will hold lasix for today and reassess tomorrow. HR mildly bradycardic likely due to metoprolol succinate. Hemodynamically stable. Continue and monitor BP (7) DM type 2 (diabetes mellitus, type 2): Diet-controlled Hgb A1c reported to be 6.1 06/2019 (8) CKD (chronic kidney disease), stage III: Baseline creat runs in 1.1-1.2s in the past few months Creat noted to be 1.4 on admission increased to 1.5, 1.2 today Patient has KADEN on CKD likely due to diuretics which has resolved Diuretics were held briefly Continue diuretics on discharge. Follow up with PCP to monitor Kidney function (9) History of left below knee amputation: History of left BKA following nonhealing osteomyelitis Has a small chronic pinpoint wound to left BKA stump. Not infected. Continue wound care Total Time Total Time Spent Total Time Spent (In Minutes): 35 Total Time Includes: Examination of the Patient, Discharge Planning and Medication Reconciliation Discharge Plan Discharge Items Patient Disposition: Home - Home Health Services Reason For Visit: RLE CELLULITIS Discharge Diagnosis: Right leg cellulitis Right superficial femoral artery stenosis Condition on Discharge: Good Activity: Resume your previous activity Non-emergency contact: Primary Care Provider Call non-emergency contact if: you have any medication questions and you have a fever Follow-up/Referrals: Elijah Park MD [Physician] - (Follow up in 2 weeks) Chadd Dudley MD [Primary Care Provider] - Diet: Heart Healthy Addtl Attending Provider Instructions: Ms Hinkle, Talib were admitted to the hospital for right toenail ulcer and infection of skin of your right leg. You had been on antibiotics and following with wound care for the ulcer. You were managed with iv antibiotics called ceftaroline. You had scans of your leg which does not show osteomyelitis. You also had a doppler scan which showed significant narrowing of one of the arteries of your right leg. You were evaluated by the Vascular surgeon and it is very important that you follow up with him within 2 weeks for angiography and possible intervention. You were also counselled extensively on need for smoking cessation as these all contribute to blood vessel problems and difficult wound healing to avoid risk of losing your right leg as well. You will need the iv antibiotics ceftaroline for 2 more weeks according to Infectious disease specialist. Please ensure the iv line is removed once dose is completed. Please follow up with your Primary Doctor and wound care. It was a pleasure taking care of you Pending Studies at Discharge: No Stand-Alone Forms: My [facility] [address], Smoking Cessation Medications and DC Order Prescriptions: New ceftaroline fosamil 400 mg recon soln 300 mg IV Q12H 14 Days RF: 0 Continued citalopram [Celexa] 40 mg tablet 40 mg PO HS RF: 0 aspirin [Aspir-81] 81 mg tablet,delayed release (DR/EC) 81 mg PO QAM RF: 0 gabapentin 800 mg tablet 800 mg PO TID RF: 0 omega 0-nca-xsk-fish oil [Fish Oil] 1,000 mg (120 mg-180 mg) capsule 1 cap PO BID RF: 0 Spiriva with HandiHaler 18 mcg capsule, w/inhalation device 1 cap INH DAILY RF: 0 furosemide [Lasix] 40 mg tablet 40 mg PO BID RF: 0 magnesium oxide 400 mg magnesium Tablet 400 mg PO DAILY RF: 0 nitroglycerin 0.4 mg tablet, sublingual 0.4 mg sublingual UD PRN (Reason: Unknown) RF: 0 spironolactone 100 mg tablet 100 mg PO DAILY RF: 0 atorvastatin 80 mg Tablet 80 mg PO HS RF: 0 ipratropium-albuterol 0.5 mg-3 mg(2.5 mg base)/3 mL Solution For Nebulization 3 ml INHALATION Q6H PRN (Reason: Shortness Of Breath Or Wheezing) RF: 0 omeprazole 40 mg Capsule,Delayed Release(Dr/Ec) 40 mg PO QAM RF: 0 metoprolol succinate 25 mg Tablet Extended Release 24 Hr 25 mg PO DAILY RF: 0 ferrous gluconate 324 mg (38 mg iron) Tablet 324 mg PO TID RF: 0 Symbicort 160-4.5 mcg/actuation Hfa Aerosol Inhaler 2 puff INHALATION BID RF: 0 multivitamin Tablet 1 tab PO QAM RF: 0 vitamin B complex Tablet 1 tab PO QAM RF: 0 folic acid 1 mg Tablet 1 mg PO QAM RF: 0 tramadol 50 mg Tablet 50 mg PO BID PRN (Reason: pain) RF: 0 Discontinued sulfamethoxazole-trimethoprim [Bactrim DS] 800-160 mg tablet 1 tab PO BID 14 Days Qty: 28 RF: 0 Discharge Orders: Discharge Order (Routine); Ordered 09/17/19 Ordered By: Rosalba Mackey Admission Data Admit Date/Time: 09/13/19 17:13 Attending Provider: Rosalba Mackey I. Admit Provider: Melissa Gutierrez Primary Care Provider: Chadd Dudley Other Providers: Jadiel Muñoz ; Kaylynn Schroeder ; Melissa Gutierrez ; Elijah Park ; Dejuan Davis Other Interventions: Discharge Summary Assessment (RN) Last Done: 09/17/19 11:14 DC Date/Time DO NOT enter until pt leaves facility: 09/17/19 12:45
[2019-09-17] MEDS: BUDESONIDE/FORMOTEROL FUMARATE 160/4.5 60 PUFFS/INHALER INH SCH (08:10)
[2019-09-17] MEDS: ASPIRIN 81 MG ECTAB PO SCH (08:11)
[2019-09-17] MEDS: NICOTINE 21 MG/24 HR TDSY TD SCH (08:11)
[2019-09-17] MEDS: MULTIVITAMIN TAB PO SCH (08:11)
[2019-09-17] MEDS: PANTOprazole 40 MG TAB PO SCH (08:11)
[2019-09-17] MEDS: OMEGA-3 (PURIFIED FISH OIL) 1 GM CAP PO SCH (08:11)
[2019-09-17] MEDS: MAGNESIUM OXIDE 400 MG TAB PO SCH (08:11)
[2019-09-17] MEDS: METOPROLOL SUCC 25MG EXT REL TAB PO SCH (08:11)
[2019-09-17] MEDS: LACTOBACILLUS ACIDOPHILUS (FLORANEX) TAB PO SCH (08:11)
[2019-09-17] MEDS: GABAPENTIN 800 MG TAB PO SCH (08:11)
[2019-09-17] MEDS: VITAMIN B COMPLEX TAB PO SCH (08:11)
[2019-09-17] MEDS: FERROUS GLUCONATE 324 MG TAB PO SCH (08:11)
[2019-09-17] MEDS: FOLIC ACID 1 MG TAB PO SCH (08:11)
[2019-09-17 08:20] VITALS: PULSE 63; TEMP 97.9
[2019-09-17 11:16] VITALS: BP 114/69
== END 2019-09-17 12:45 | disposition home health service (06) | DRG 603 ==
LOC: ED 14:33 → 2N 17:13 → SUATTDRO 17:13 → 2N 18:07

== ENCOUNTER 2019-11-02 05:53 | Inpatient (IN) ==
--- NOTE | 2019-10-27 13:25 | PAT Medication Instructions ---
Medication Instructions Date of Service October 27, 2019 Home Medications Medication Instructions Recorded clindamycin HCl 300 mg capsule 300 mg PO TID #90 cap 10/07/19 aspirin 81 mg tablet,delayed release 81 mg PO QAM citalopram 40 mg tablet 40 mg PO HS gabapentin 800 mg tablet 800 mg PO TID omega 0-myn-vcn-fish oil 1,000 mg (120 mg-180 mg) capsule 1 cap PO DAILY Symbicort 2 puff INHALATION BID atorvastatin 80 mg PO HS ferrous gluconate 324 mg PO TID folic acid 1 mg PO QAM ipratropium-albuterol 3 ml INHALATION Q6H PRN metoprolol succinate 12.5 mg PO QPM multivitamin 1 tab PO QAM omeprazole 40 mg PO QAM vitamin B complex 1 tab PO QAM furosemide [Lasix] 40 mg PO BID magnesium oxide 400 mg PO QAM nitroglycerin 0.4 mg SUBLINGUAL UD PRN tramadol 50 mg PO BID PRN tiotropium bromide 18 mcg capsule with inhalation device 1 cap INH HS spironolactone 100 mg PO QAM clindamycin HCl 300 mg capsule 300 mg PO TID ibuprofen 600 mg PO HS PRN Continue as directed nitroglycerin 0.4 mg SUBLINGUAL UD PRN clindamycin HCl 300 mg capsule 300 mg PO TID ASK your surgeon for instructions aspirin 81 mg tablet,delayed release 81 mg PO QAM ibuprofen 600 mg PO HS PRN STOP taking 2 weeks before surgery omega 6-lyk-kcy-fish oil 1,000 mg (120 mg-180 mg) capsule 1 cap PO DAILY DO NOT take the morning of surgery ferrous gluconate 324 mg PO TID folic acid 1 mg PO QAM multivitamin 1 tab PO QAM vitamin B complex 1 tab PO QAM furosemide [Lasix] 40 mg PO BID magnesium oxide 400 mg PO QAM spironolactone 100 mg PO QAM Take morning of surgery With a small sip of water, OTHERWISE NOTHING TO EAT OR DRINK AFTER MIDNIGHT: gabapentin 800 mg tablet 800 mg PO TID Symbicort 2 puff INHALATION BID ipratropium-albuterol 3 ml INHALATION Q6H PRN (if needed) omeprazole 40 mg PO QAM tramadol 50 mg PO BID PRN (if needed, may be taken up to four hours before surgery) Take evening before surgery citalopram 40 mg tablet 40 mg PO HS gabapentin 800 mg tablet 800 mg PO TID Symbicort 2 puff INHALATION BID atorvastatin 80 mg PO HS ferrous gluconate 324 mg PO TID ipratropium-albuterol 3 ml INHALATION Q6H PRN (if needed) metoprolol succinate 12.5 mg PO QPM furosemide [Lasix] 40 mg PO BID tramadol 50 mg PO BID PRN (if needed) tiotropium bromide 18 mcg capsule with inhalation device 1 cap INH HS Other Notes If you have any questions please call us at [phone] or [phone] or [phone] or [phone]
--- NOTE | 2019-10-28 14:12 | Anesthesiology Consultation ---
Date of Service October 28, 2019 Assessment & Plan (1) Encounter for pre-operative examination: Cardiology 09/09/2019: From a cardiac standpoint she is doing very well and no further cardiac testing or intervention is necessary at this time. Her weight has been stable so no medication changes will be made today either. I have encouraged her to follow-up with vascular surgery as scheduled. Chart Review Chart Review: Acceptable Risk for Surgery and Patient seen in Pre Admission Testing Teaching & Discussion Instructed NPO after midnight before surgery, except medications with 15 cc of water. Medication instructions provided according to the PAT guidelines. History Surgery Operation Date: 11/02/19 09:55 Proposed Procedures p Right Femoral to Posterior Tibial Artery Insitu Bypass - Elijah Park MD Height/Weight Height: 5 ft Weight: 61.6 kg Allergies Allergy/AdvReac Type Severity Reaction Status Date / Time Penicillins Allergy Unknown hives/upset Verified 10/26/19 10:44 stomach/diarrhea Iodinated Contrast Media AdvReac Unknown severe Verified 10/26/19 10:44 [Iodinated Contrast- Oral vomiting and IV Dye] oxycodone [From Percocet] AdvReac Unknown vomiting Verified 10/26/19 10:44 Medications Home Medications Medication Instructions Recorded Confirmed Last Taken aspirin 81 mg tablet,delayed 81 mg PO QAM 07/22/18 10/25/19 10/25/19 release citalopram 40 mg tablet 40 mg PO HS 07/22/18 10/25/19 10/24/19 gabapentin 800 mg tablet 800 mg PO TID tab 07/22/18 10/25/19 10/25/19 omega 8-nxc-unz-fish oil 1,000 mg 1 cap PO DAILY cap 07/22/18 10/25/19 10/21/19 21:30 (120 mg-180 mg) capsule Symbicort 2 puff INHALATION BID 03/01/19 10/25/19 10/25/19 atorvastatin 80 mg PO HS 03/01/19 10/25/19 10/24/19 ferrous gluconate 324 mg PO TID 03/01/19 10/25/19 10/25/19 folic acid 1 mg PO QAM 03/01/19 10/25/19 10/25/19 ipratropium-albuterol 3 ml INHALATION Q6H PRN 03/01/19 10/25/19 07/14/19 22:00 metoprolol succinate 12.5 mg PO QPM 03/01/19 10/25/19 10/24/19 multivitamin 1 tab PO QAM 03/01/19 10/25/19 10/25/19 omeprazole 40 mg PO QAM 03/01/19 10/25/19 10/25/19 vitamin B complex 1 tab PO QAM 03/01/19 10/25/19 10/21/19 07:30 furosemide [Lasix] 40 mg PO BID 04/05/19 10/25/19 10/25/19 magnesium oxide 400 mg PO QAM 04/05/19 10/25/19 10/25/19 nitroglycerin 0.4 mg SUBLINGUAL UD PRN 04/05/19 10/25/19 06/14/19 tramadol 50 mg PO BID PRN 07/15/19 10/25/19 10/21/19 21:30 tiotropium bromide 18 mcg capsule 1 cap INH HS 09/02/19 10/25/19 10/24/19 with inhalation device spironolactone 100 mg PO QAM 09/13/19 10/25/19 10/25/19 clindamycin HCl 300 mg capsule 300 mg PO TID #90 cap 10/07/19 10/25/19 10/25/19 ibuprofen 600 mg PO HS PRN 10/25/19 10/26/19 Unknown Past Medical History Medical History Acid reflux CAD (coronary artery disease) (Chronic) 2004 -PCI to unknown vessel Chronic combined systolic and diastolic CHF (congestive heart failure) (Chronic) EF 40 to 44%, grade 2 diastolic dysfunction Cirrhosis of liver "UNDETERMINED ORIGIN" CKD (chronic kidney disease), stage III (Chronic) pt denies having any problems with kidneys. COPD (chronic obstructive pulmonary disease) (Chronic) Diabetic peripheral neuropathy (Chronic) History of anesthesia reaction PT REPORTS URINARY RETENTION POST OP, USUALLY REQUIRING STRAIGHT CATH History of anxiety History of depression History of endometriosis "STAGE 1 GRADE 1" History of sleep apnea HX CPAP SARANYA (iron deficiency anemia) (Chronic) Impaired fasting glucose A1C 6/1% 05/2019 Ischemic cardiomyopathy (Chronic) EF 40-44% PAD (peripheral artery disease) (Chronic) Snores Valvular heart disease (Chronic) mod-severe MR, mod TR Exercise / Class Metabolic Activity IV < 2 Limit ADL/Bedbound (Uses walker for ambulation, denies CP or SOB with ambulationl uses wheelchair often due to BKA and charcot foot) Past Family History Family History Father Family history of diabetes mellitus Family history of COPD (chronic obstructive pulmonary disease) Sister Breast cancer Past Surgical History Surgical History History of bilateral carotid endarterectomy (Chronic) History of cardiac cath 2004 ..TOLD HAD 2 MA'S - STENT X1 History of cholecystectomy (Chronic) History of colonoscopy History of hysterectomy (Chronic) supracervical History of left below knee amputation (Chronic) History of lumbar discectomy S/P angioplasty UNABLE TO PERFORM 10/22/19 - REASON FOR UPCOMING SURGERY Past Anesthesia History No Hx of Anesthesia Complications (other than urinary retention) and No Family Hx of Anesthesia Complications History of PONV No Hx of PONV and No Hx of Motion Sickness Social History Smoking Status: Current every day smoker tobacco type: cigarettes Smoking cigarettes per day: < 5 Do You Dip or Chew Tobacco: No Hx Alcohol Use: No Hx Substance Use: No substance use type: does not use Review of Systems Pt denies any recent chest pain, shortness of breath, palpitations, cough, fever or URI. Physical Exam Vital Signs BP: 117/49 P: 49bpm (denies symptoms) SPO2: 98% RA T: 98.7 F R: 16 ENMT Mouth: + dentures (full upper, lower partial, five [place] teeth remain); no chipped teeth and no loose teeth Thyromental Distance: > or= 3.5 Finger Breadths (3.5) Mallampati Class: II Neck normal visual inspection; neck extension not limited Respiratory normal respiratory effort Auscultation: lungs clear to auscultation bilaterally Cardiovascular Rate/Rhythm: regular rhythm and + bradycardic Heart Sounds: + murmur (II/) Musculoskeletal Extremities: + amputation noted (LLE) Testing Laboratory Results 10/28/19 14:21 10/28/19 14:21 PT 11.3 Seconds (9.0-12.0) 10/28/19 14:21 INR 1.1 (0.9-1.1) 10/28/19 14:21 APTT 28.0 Seconds (21.0-31.0) 10/28/19 14:21 Blood Type A Positive 10/28/19 14:21 Antibody Screen NEGATIVE 10/28/19 14:21 Electrocardiogram Date: 09/13/19 Findings: + NSR @ (61bpm) Left anterior fascicular block. Lateral infarct (cited on or before 05/07/2019). Chest X-Ray Date: 09/13/19 Findings: + NAD Echocardiogram Date: 05/08/19 EF: 40-45% A trivial circumferential pericardial effusion of nonhemodynamically evidence is present. The left ventricle is normal in size. Moderate concentric LVH. The inferior wall is moderately hypokinetic. The remaining left ventricular wall segments are mildly hypokinetic. Moderately calcified, trileaflet aortic valve with moderate left ear and mild aortic regurgitation. There is moderate mitral annular calcification. There is moderate to severe mitral regurgitation. There is moderate tricuspid regurgitation. Pulmonary hypertension is present with RVSP of 40 to 50 mmHg.
[2019-10-28 15:37] LABS: Basophils # (auto) 0.02 K/uL (0-0.2); Basophils % (auto) 0.4 %; Hematocrit (blood only) 40.9 % (37-47); Hemoglobin 13.5 g/dL (12.0-16.0); Immature Granulocytes # (auto) 0.01 K/uL (0.00-0.02); Immature Granulocytes % (auto) 0.2 %; Lymphocytes # (auto) 0.78 K/uL (1.2-3.4); Lymphocytes % (auto) 13.7 %; Mean Corpuscular Hemoglobin 26.9 pg (25-34); Mean Corpuscular Volume 81.6 fL (80-100); Monocytes # (auto) 0.43 K/uL (0.11-0.59); Monocytes % (auto) 7.5 %; Neutrophils # (auto) 4.47 K/uL (1.4-6.5); Neutrophils % (auto) 78.2 %; Platelet Count 177 K/uL (130-400); RDW Coefficient of Variation 16.5 % (11.5-14.5); RDW Standard Deviation 48.5 fL (36.4-46.3); Red Blood Count 5.01 M/uL (4.2-5.4); White Blood Count 5.71 K/uL (4.8-10.8)
[2019-10-28 15:43] LABS: BUN Creatinine Ratio 44.1 (10-20); Calcium 8.9 mg/dl (8.5-10.1); Creatinine Clr Calc Pharmacy 38.1 ml/min; Est GFR (Non-African American) 48.3; Potassium 4.3 mmol/L (3.5-5.1)
[2019-10-28 16:07] LABS: INR 1.1 (0.9-1.1); Prothrombin Time 11.3 Seconds (9.0-12.0)
[2019-11-02] MEDS ORDERED: CLINDAMYCIN 600 MG/54 ML BAG IV SCH (06:00)
[2019-11-02] MEDS ORDERED: SODIUM CHLORIDE 0.9% 1000ML IV SCH (06:00)
--- NOTE | 2019-11-02 06:09 | History & Physical Report ---
Date of Service November 02, 2019 History of Present Illness Primary Care Provider: Ch[place] [address] History & Physical Report Signed Patient: MEREDITH MARTINEZ Admit Date: 10/06/19 MR#: [id number] Att Phy: Elijah Park M.D. Acct ID:[id number] Chastity Phy: Girish Sales DO Date: 1950 Fam Phy: Age: 68 Location: U Sex: F Room/Bed: cc: ~ *NOTICE TO RECEIVING [employer]/AGENCY This information is strictly Confidential and protected under [place] law. [place] law prohibits you from making any further disclosure of this information unless further disclosure is expressly permitted by the written consent of the person to whom it pertains or is authorized by law. A general authorization for the release of medical or other information is not sufficient for this purpose. Hospital accepts no responsibility if the information is made available to any other person, INCLUDING THE PATIENT. 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 I have discussed the risks options and benefits of the procedure with the patient. The patient understands the risks options and benefits and agrees to the procedure. History of Present Illness Chief Complaint: Non healing wound right great toe Primary Care Provider: Girish Sales DO Ms. Martinez is a 68-year-old female with a history of peripheral arterial disease, who underwent duplex ultrasound when she was hospitalized recently, which showed a right mid SFA occlusion with patent 3 vessel runoff. She was seen by Vascular Surgery in consultation at that time. Her wound has been present since about August. She was recently admitted for cellulitis today and the wound seems to be improving. She has been followed by the [facility]. However, she does have some purplish discoloration of her right great toe. She does have neuropathy in the foot and does not feel any pain. She is concerned about the discoloration as this is how things started with her left lower extremity, which ultimately ended up in an amputation. Allergies Allergy/AdvReac Type Severity Reaction Status Date / Time Penicillins Allergy Intermediate hives/upset Verified 10/21/19 10:25 stomach/diarrhea Iodinated Contrast Media AdvReac Intermediate severe Verified 10/12/19 11:20 [Iodinated Contrast- Oral vomiting and IV Dye] oxycodone [From Percocet] AdvReac Intermediate vomiting Verified 10/12/19 11:20 Home Medications Home Medications Medication Instructions Recorded Confirmed Type aspirin 81 mg tablet,delayed 81 mg PO QAM 07/22/18 10/21/19 History release citalopram 40 mg tablet 40 mg PO HS 07/22/18 10/21/19 History gabapentin 800 mg tablet 800 mg PO TID tab 07/22/18 10/21/19 History omega 9-nwb-ccx-fish oil 1,000 mg 1 cap PO BID cap 07/22/18 10/21/19 History (120 mg-180 mg) capsule Symbicort 2 puff INHALATION BID 03/01/19 10/21/19 History atorvastatin 80 mg PO HS 03/01/19 10/21/19 History ferrous gluconate 324 mg PO TID 03/01/19 10/21/19 History folic acid 1 mg PO QAM 03/01/19 10/21/19 History ipratropium-albuterol 3 ml INHALATION Q6H PRN 03/01/19 10/21/19 History metoprolol succinate 25 mg PO DAILY 03/01/19 10/21/19 History multivitamin 1 tab PO QAM 03/01/19 10/21/19 History omeprazole 40 mg PO QAM 03/01/19 10/21/19 History vitamin B complex 1 tab PO QAM 03/01/19 10/21/19 History furosemide [Lasix] 40 mg PO BID 04/05/19 10/21/19 History magnesium oxide 400 mg PO DAILY 04/05/19 10/21/19 History nitroglycerin 0.4 mg SUBLINGUAL UD PRN 04/05/19 10/21/19 History tramadol 50 mg PO BID PRN 07/15/19 10/21/19 History tiotropium bromide 18 mcg capsule 1 cap INH DAILY 09/02/19 10/21/19 History with inhalation device spironolactone 100 mg PO DAILY 09/13/19 10/21/19 History clindamycin HCl 300 mg capsule 300 mg PO TID #90 cap 10/07/19 10/21/19 Rx Past Med/Surg History Medical History CAD (coronary artery disease) (Chronic) 2005 -PCI to unknown vessel Charcot foot due to diabetes mellitus (Chronic) Chronic combined systolic and diastolic CHF (congestive heart failure) (Chronic) EF 40 to 44%, grade 2 diastolic dysfunction CKD (chronic kidney disease), stage III (Chronic) pt denies having any problems with kidneys. COPD (chronic obstructive pulmonary disease) (Chronic) Diabetic peripheral neuropathy (Chronic) DM type 2 (diabetes mellitus, type 2) (Chronic) History of left below knee amputation (Chronic) SARANYA (iron deficiency anemia) (Chronic) Ischemic cardiomyopathy (Chronic) PAD (peripheral artery disease) (Chronic) Valvular heart disease (Chronic) mod-severe MR, mod TR Surgical History History of bilateral carotid endarterectomy (Chronic) History of cholecystectomy (Chronic) History of hysterectomy (Chronic) supracervical Family History Father Family history of diabetes mellitus Sister Breast cancer Social History Preferred Language: [place] Communication Ability: Effective Visual Impairment: Limited Hearing Ability: Normal Inspector Required: No Beliefs That Will Affect Care: None marital status: Current Living Situation: Spouse current occupational status: disabled Feels Safe at Home: Yes Smoking Status: Current every day smoker Tobacco Type: cigarettes ; Cigarettes Per Day: 5 ; Second Hand Exposure: Yes ; Hx Alcohol Use: No Hx Substance Use: No Review of Systems All systems reviewed & are unremarkable except as noted in HPI & below Physical Exam Physical Exam: Constitutional: well developed, well nourished, well groomed, cooperative and comfortable; no acute distress, not in distress and not diaphoretic Eyes: PERRL and EOM intact bilaterally ENMT: Nose: no nasal discharge Neck: trachea midline Well-healed bilateral carotid endarterectomy incisions. Respiratory: normal respiratory effort, lungs clear to auscultation no respiratory distress and no cough Cardiovascular: Rate/Rhythm: regular rate Musculoskeletal: Extremities: + foot abnormality (Charcot foot deformity) Right Patient has a amputation on the left side below the knee with a small 2 mm wound at the base of the stump. The right lower extremity has a small 2 mm wound at the tip of the right toe with no erythema or discharge or drainage surrounding it. Patient has a small scab in the medial aspect of her right calf. Right lower extremity is warm with motor and intact patient has a history of neuropathy and has no sensory feeling in the right leg. Patient has palpable femoral pulses bilaterally. Bilateral groins appeared clean with no rash. Skin: no rashes, warm and dry Neurologic: CN's II-XI intact bilaterally Motor/Sensory: + sensory deficit (Peripheral neuropathy in the right lower extremity.); no tremor Psychiatric: Orientation: alert, oriented x 3 and cooperative Apperance: appropriately groomed Eye Contact: good eye contact Speech: normal rate/rhythm/volume of speech Signed By: <Electronically signed by Elijah Park MD> 10/22/19522 Created: 10/22/19516 The status of this report is Signed. Draft = Not yet reviewed or approved by Medical Physician. Signed = Reviewed and approved by Medical Physician. Allergies Allergy/AdvReac Type Severity Reaction Status Date / Time Penicillins Allergy Unknown hives/upset Verified 10/26/19 10:44 stomach/diarrhea Iodinated Contrast Media AdvReac Unknown severe Verified 10/26/19 10:44 [Iodinated Contrast- Oral vomiting and IV Dye] oxycodone [From Percocet] AdvReac Unknown vomiting Verified 10/26/19 10:44 Home Medications Home Medications Medication Instructions Recorded Confirmed Type aspirin 81 mg tablet,delayed 81 mg PO QAM 07/22/18 10/25/19 History release citalopram 40 mg tablet 40 mg PO HS 07/22/18 10/25/19 History gabapentin 800 mg tablet 800 mg PO TID tab 07/22/18 10/25/19 History omega 3-gti-jwq-fish oil 1,000 mg 1 cap PO DAILY cap 07/22/18 10/25/19 History (120 mg-180 mg) capsule Symbicort 2 puff INHALATION BID 03/01/19 10/25/19 History atorvastatin 80 mg PO HS 03/01/19 10/25/19 History ferrous gluconate 324 mg PO TID 03/01/19 10/25/19 History folic acid 1 mg PO QAM 03/01/19 10/25/19 History ipratropium-albuterol 3 ml INHALATION Q6H PRN 03/01/19 10/25/19 History metoprolol succinate 12.5 mg PO QPM 03/01/19 10/25/19 History multivitamin 1 tab PO QAM 03/01/19 10/25/19 History omeprazole 40 mg PO QAM 03/01/19 10/25/19 History vitamin B complex 1 tab PO QAM 03/01/19 10/25/19 History furosemide [Lasix] 40 mg PO BID 04/05/19 10/25/19 History magnesium oxide 400 mg PO QAM 04/05/19 10/25/19 History nitroglycerin 0.4 mg SUBLINGUAL UD PRN 04/05/19 10/25/19 History tramadol 50 mg PO BID PRN 07/15/19 10/25/19 History tiotropium bromide 18 mcg capsule 1 cap INH HS 09/02/19 10/25/19 History with inhalation device spironolactone 100 mg PO QAM 09/13/19 10/25/19 History clindamycin HCl 300 mg capsule 300 mg PO TID #90 cap 10/07/19 10/25/19 Rx ibuprofen 600 mg PO HS PRN 10/25/19 10/26/19 History Past Med/Surg History Medical History Acid reflux CAD (coronary artery disease) (Chronic) 2004 -PCI to unknown vessel Chronic combined systolic and diastolic CHF (congestive heart failure) (Chronic) EF 40 to 44%, grade 2 diastolic dysfunction Cirrhosis of liver "UNDETERMINED ORIGIN" CKD (chronic kidney disease), stage III (Chronic) pt denies having any problems with kidneys. COPD (chronic obstructive pulmonary disease) (Chronic) Diabetic peripheral neuropathy (Chronic) History of anxiety History of depression History of endometriosis "STAGE 1 GRADE 1" History of sleep apnea HX CPAP SARANYA (iron deficiency anemia) (Chronic) Impaired fasting glucose A1C 6/1% 05/2019 Ischemic cardiomyopathy (Chronic) EF 40-44% PAD (peripheral artery disease) (Chronic) Snores Valvular heart disease (Chronic) mod-severe MR, mod TR Surgical History (Updated 10/29/19 @ 14:57 by Mary Mccoy RN) History of anesthesia reaction PT REPORTS URINARY RETENTION POST OP, USUALLY REQUIRING STRAIGHT CATH History of bilateral carotid endarterectomy (Chronic) History of cardiac cath 2004 ..TOLD HAD 2 MS'S - STENT X1 History of cholecystectomy (Chronic) History of colonoscopy History of hysterectomy (Chronic) supracervical History of left below knee amputation (Chronic) History of lumbar discectomy S/P angioplasty UNABLE TO PERFORM 10/22/19 - REASON FOR UPCOMING SURGERY Family History Father Family history of diabetes mellitus Family history of COPD (chronic obstructive pulmonary disease) Sister Breast cancer Social History Preferred Language: [place] Communication Ability: Effective Visual Impairment: Limited Hearing Ability: Normal Inspector Required: No Beliefs That Will Affect Care: None marital status: Current Living Situation: Spouse current occupational status: disabled Other Information That Helps Us Care for You: Yes (RECEIVES HOME HEALTH CARE ([facility] Feels Safe at Home: Yes Smoking Status: Current every day smoker Tobacco Type: cigarettes ; Cigarettes Per Day: < 5 ; Do You Dip or Chew Tobacco: No ; Second Hand Exposure: Yes ; Tobacco Cessation Education Requested by Patient: No Hx Alcohol Use: No Hx Substance Use: No
[2019-11-02 08:41] LABS: BUN Creatinine Ratio 46.5 (10-20); Calcium 9.6 mg/dl (8.5-10.1); Creatinine Clr Calc Pharmacy 30.4 ml/min; Est GFR (African American) 42.8; Est GFR (Non-African American) 36.9; Potassium 4.5 mmol/L (3.5-5.1)
[2019-11-02] MEDS ORDERED: ePHEDrine sulfate 50 MG/ML AMP IV PRN (12:03)
[2019-11-02] MEDS ORDERED: fentaNYL citrate 100 MCG/2 ML VIAL IV PRN (12:03)
[2019-11-02] MEDS ORDERED: ATROPINE SULFATE 0.1 MG/ML 10ML SYR IV PRN (12:03)
[2019-11-02] MEDS ORDERED: ONDANSETRON INJ 2 MG/ML 2 ML VIAL IV PRN ×2 (12:03→18:25)
[2019-11-02] MEDS ORDERED: LIDOCAINE HCL 2% 2 ML VIAL/AMP(20MG/ML) INFIL ONE (12:46)
[2019-11-02] MEDS ORDERED: PROPOFOL IV EMULSION 10 MG/ML 20 ML VIAL IV ONE (12:46)
[2019-11-02] MEDS ORDERED: fentaNYL citrate 100 MCG/2 ML VIAL ONE (12:47)
[2019-11-02] MEDS ORDERED: MIDAZOLAM HCL 1 MG/ML 2ML VIAL ONE (12:47)
[2019-11-02] MEDS ORDERED: HEPARIN (PORCINE) 1000 UNIT/ML 10 ML (CATH LAB USE ONLY) ONE (13:24)
[2019-11-02] MEDS ORDERED: LIDOCAINE HCL 1% 20 ML VIAL ONE (13:24)
[2019-11-02] MEDS ORDERED: THROMBIN 5000 UNITS KIT ONE (13:24)
[2019-11-02] MEDS ORDERED: PAPAVERINE HCL INJ 30 MG/ML 2 ML VIAL ONE (13:24)
[2019-11-02] MEDS ORDERED: BUPIVACAINE/EPINEPHRINE 0.5% MPF 1:200,000 10 ML VIAL ONE (13:25)
[2019-11-02] MEDS ORDERED: CEFAZOLIN 250 MG/ML 1 GM VIAL ONE (13:25)
[2019-11-02] MEDS ORDERED: IODIXANOL (VISIPAQUE) 270 MG/ML 50ML ONE (13:25)
[2019-11-02] MEDS ORDERED: GELATIN SPONGE SZ 100 ONE (13:25)
[2019-11-02] MEDS ORDERED: BACITRACIN INJ 50,000 UNIT VIAL ONE (14:07)
[2019-11-02] MEDS ORDERED: ROCURONIUM BROMIDE 10 MG/ML 5 ML VIAL ONE ×6 (14:27→17:19)
[2019-11-02] MEDS ORDERED: GLYCOPYRROLATE 0.2 MG/ML VIAL ONE (14:28)
[2019-11-02] MEDS ORDERED: NEOSTIGMINE METHYLSULFATE 5 MG/5 ML SYR ONE ×2 (14:28→17:52)
[2019-11-02] MEDS ORDERED: ONDANSETRON INJ 2 MG/ML 2 ML VIAL ONE (14:28)
[2019-11-02] MEDS ORDERED: HEPARIN SOD (PORCINE) 1000 UNIT/ML 10 ML VIAL ONE ×2 (15:11→17:52)
[2019-11-02] MEDS ORDERED: ePHEDrine sulfate 50 MG/ML SYR ONE ×2 (16:42→17:52)
[2019-11-02] MEDS ORDERED: PHENYLEPHRINE HCL 10 MG/ML VIAL ONE (17:53)
--- NOTE | 2019-11-02 18:25 | Post Operative Brief Note ---
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 with occlusion of anterior tibial and peroneal arteries Post-Op Diagnosis: Midsuperficial femoral to distal popliteal artery occlusion with occlusion of anterior tibial and peroneal arteries I identified the patient and participated in the time-out.: Yes Procedure Operation Date: 11/02/19 09:55 Actual Procedures p Right common femoral enarterectomy veinpatch graft, Right Femoral to Posterior Tibial Artery Insitu Bypass(Right) - Elijah Park MD Surgeon Elijah Park MD Director Of Psychiatry MD Pietro L.Minarchick,PAC Estimated Blood Loss 200 Findings Consistent with Post-Op Diagnosis Drains [place] Catheter Anesthesia Type General Complications none Disposition Accompanied Patient To Recovery: No Disposition: Recovery Room
[2019-11-02] MEDS ORDERED: HYDROCODONE/ACETAMOPHEN 5/325MG TAB PO PRN (18:30)
[2019-11-02] MEDS ORDERED: ALBUT/IPRATROP 3MG/0.5MG NEB 3 ML VIAL INH PRN (18:31)
[2019-11-02] MEDS ORDERED: NITROGLYCERIN SL 0.4 MG/TAB TAB SL PRN (18:31)
[2019-11-02 19:10] LABS: Hematocrit (blood only) 37.8 % (37-47); Hemoglobin 12.4 g/dL (12.0-16.0); Immature Granulocytes # (auto) 0.01 K/uL (0.00-0.02); Immature Granulocytes % (auto) 0.1 %; Lymphocytes # (auto) 0.33 K/uL (1.2-3.4); Lymphocytes % (auto) 4.8 %; Mean Corpuscular Hemoglobin 26.9 pg (25-34); Mean Corpuscular Hgb Conc 32.8 g/dL (32-36); Mean Platelet Volume 10.1 fL (7.4-10.4); Monocytes # (auto) 0.23 K/uL (0.11-0.59); Monocytes % (auto) 3.3 %; Neutrophils # (auto) 6.32 K/uL (1.4-6.5); Neutrophils % (auto) 91.8 %; Platelet Count 133 K/uL (130-400); RDW Coefficient of Variation 17.3 % (11.5-14.5); RDW Standard Deviation 51.2 fL (36.4-46.3); Red Blood Count 4.61 M/uL (4.2-5.4); White Blood Count 6.89 K/uL (4.8-10.8)
--- NOTE | 2019-11-02 19:21 | Anesthesiology Progress Note ---
Date of Service November 02, 2019 Anesthesia Post Procedure Vital Signs Vital Signs: Temp Pulse Pulse Resp BP Pulse Ox 11/02/19 19:05 82 13 123/59 L 98 11/02/19 18:55 83 10 L 137/69 98 11/02/19 18:45 82 13 139/81 100 11/02/19 18:37 37.5 C 83 18 145/74 H 100 11/02/19 08:57 36.9 C 61 18 127/70 96 Pain Intensity Generalized: Pain Intensity: 6 Transfer of Care Handoff Completed per policy Notes Mental Status: alert / awake / arousable and participated in evaluation Patient Amnestic to Procedure: Yes Nausea / Vomiting: adequately controlled Pain: adequately controlled Airway Patency, RR, SpO2: stable & adequate BP & HR: stable & adequate Hydration State: stable & adequate Anesthetic Complications: no major complications apparent and Pt Satisfied with anesthetic care
[2019-11-02] MEDS ORDERED: MoRPHine SULFATE 4 MG/ML 1 ML CARP\\VIAL ONE (19:56)
[2019-11-02] MEDS ORDERED: MoRPHine SULFATE 2 MG/ML CARP IV PRN (20:27)
--- NOTE | 2019-11-02 20:35 | Critical Care Consultation ---
Date of Consultation November 02, 2019 Assessment & Plan (1) Admitted to intensive care unit: Reason Critically Ill: 68-year-old female status post RIGHT common femoral endarterectomy vein patch graft with RIGHT femoral to posterior tibial artery in situ bypass. NEURO - * CAM ICU: NEGATIVE * Pain: * Narcotics as needed in the immediate postoperative phase. CARDIAC/VASCULAR - * History of coronary artery disease, valvular heart disease, ischemic cardiomyopathy, CHF, and PAD. * Continue home medications. * Monitor on telemetry. RESPIRATORY - * COPD: * Continue home respiratory regime. * Supplemental O2 as needed. GI/NUTRITION - * Heart healthy diet. Progress as tolerated. RENAL/LYTES - * CKD 3 * IVF: NSS@50 mL's per hour - * No concerns. * Strict I&Os. ENDO - * Diabetes * BSGs per unit protocol. ISS --> gtt per unit policy. HEME - * Stable H&H. * Will monitor status post vascular intervention. ID - * Receiving perioperative clindamycin dosing. LINES/IV ACCESS - * PIVs x2 * Arterial line. DVT PROPHYLAXIS - * Per vascular team. * SCDs I have personally spent 30 minutes of critical care time in the direct management of this patient. This is a life/limb threatening event. This includes time spent evaluating patient, direct bedside care, chart review, placing orders, interpretation of diagnostic studies, discussion with consultants, patient, and family members, as well as other required patient management activities. This time is exclusive of all separately billable procedures, and teaching time and separate from and in addition to any other critical care service time. Thank you for allowing us to participate in the care of this patient. Please refer to my attending physician's documentation for any further recommendations. (2) Encounter for pre-operative examination: (3) Diabetic ulcer of toe associated with type 2 diabetes mellitus, with fat la ted exposed: (4) Stage II pressure ulcer: (5) Traumatic wound: (6) S/P vascular surgery: Supervising Physician Co-Signing Physician Notes I evaluated the patient immediately postoperatively and discussed the treatment plan with Althea Kwong. History of Present Illness Attending Physician: Elijah Park MD History of Present Illness Patient is a 68-year-old female with a significant past medical history of c oronary artery disease, CHF, valvular heart disease, ischemic cardiomyopathy, peripheral arterial disease, COPD, CKD 3, and diabetes who was admitted to this facility status post RIGHT common femoral endarterectomy and vein patch graft with RIGHT femoral to posterior tibial artery in situ bypass. Patient was noted to have increasing claudication and discoloration of the leg while being evaluated in the wound clinic. Outpatient imaging studies suggested vascular occlusions requiring intervention. Patient had an uneventful surgical intervention. She is admitted to the ICU for ongoing monitoring status post vascular intervention. Upon evaluation the ICU, patient is awake, alert, and oriented. She complains of pain to the RIGHT lower extremity and describes it as a burning sensation. She rates her current discomfort as an 8/10. She currently denies any headaches, dizziness, lightheadedness, chest pain, palpitations, shortness of breath, nausea, vomiting, abdominal pain, or other extremity pain. Allergies Allergy/AdvReac Type Severity Reaction Status Date / Time Penicillins Allergy Unknown hives/upset Verified 11/02/19 08:28 stomach/diarrhea Iodinated Contrast Media AdvReac Unknown severe Verified 11/02/19 08:28 [Iodinated Contrast- Oral vomiting and IV Dye] oxycodone [From Percocet] AdvReac Unknown vomiting Verified 10/26/19 10:44 Home Medications Home Medications Medication Instructions Recorded Confirmed Type aspirin 81 mg tablet,delayed 81 mg PO QAM 07/22/18 11/02/19 History release citalopram 40 mg tablet 40 mg PO HS 07/22/18 11/02/19 History gabapentin 800 mg tablet 800 mg PO TID tab 07/22/18 11/02/19 History omega 1-iug-huc-fish oil 1,000 mg 1 cap PO DAILY cap 07/22/18 11/02/19 History (120 mg-180 mg) capsule Symbicort 2 puff INHALATION BID 03/01/19 11/02/19 History atorvastatin 80 mg PO HS 03/01/19 11/02/19 History ferrous gluconate 324 mg PO TID 03/01/19 11/02/19 History folic acid 1 mg PO QAM 03/01/19 11/02/19 History ipratropium-albuterol 3 ml INHALATION Q6H PRN 03/01/19 11/02/19 History metoprolol succinate 12.5 mg PO QPM 03/01/19 11/02/19 History multivitamin 1 tab PO QAM 03/01/19 11/02/19 History omeprazole 40 mg PO QAM 03/01/19 11/02/19 History vitamin B complex 1 tab PO QAM 03/01/19 11/02/19 History furosemide [Lasix] 40 mg PO BID 04/05/19 11/02/19 History magnesium oxide 400 mg PO QAM 04/05/19 11/02/19 History nitroglycerin 0.4 mg SUBLINGUAL UD PRN 04/05/19 11/02/19 History tramadol 50 mg PO BID PRN 07/15/19 11/02/19 History tiotropium bromide 18 mcg capsule 1 cap INH HS 09/02/19 11/02/19 History with inhalation device spironolactone 100 mg PO QAM 09/13/19 11/02/19 History clindamycin HCl 300 mg capsule 300 mg PO TID #90 cap 10/07/19 11/02/19 Rx ibuprofen 600 mg PO HS PRN 10/25/19 11/02/19 History prednisone 50 mg PO DAILY 11/02/19 11/02/19 History Patient History Medical History Acid reflux CAD (coronary artery disease) (Chronic) 2004 -PCI to unknown vessel Chronic combined systolic and diastolic CHF (congestive heart failure) (Chronic) EF 40 to 44%, grade 2 diastolic dysfunction Cirrhosis of liver "UNDETERMINED ORIGIN" CKD (chronic kidney disease), stage III (Chronic) pt denies having any problems with kidneys. COPD (chronic obstructive pulmonary disease) (Chronic) Diabetic peripheral neuropathy (Chronic) History of anxiety History of depression History of endometriosis "STAGE 1 GRADE 1" History of sleep apnea HX CPAP SARANYA (iron deficiency anemia) (Chronic) Impaired fasting glucose A1C 6/1% 05/2019 Ischemic cardiomyopathy (Chronic) EF 40-44% PAD (peripheral artery disease) (Chronic) Snores Valvular heart disease (Chronic) mod-severe MR, mod TR Surgical History History of anesthesia reaction PT REPORTS URINARY RETENTION POST OP, USUALLY REQUIRING STRAIGHT CATH History of bilateral carotid endarterectomy (Chronic) History of cardiac cath 2004 ..TOLD HAD 2 HI'S - STENT X1 History of cholecystectomy (Chronic) History of colonoscopy History of hysterectomy (Chronic) supracervical History of left below knee amputation (Chronic) History of lumbar discectomy S/P angioplasty UNABLE TO PERFORM 10/22/19 - REASON FOR UPCOMING SURGERY Family History Father Family history of diabetes mellitus Family history of COPD (chronic obstructive pulmonary disease) Sister Breast cancer Social History Preferred Language: Haitian Communication Ability: Effective Visual Impairment: Limited Hearing Ability: Normal Cosmetician Apprentice Required: No Beliefs That Will Affect Care: None marital status: Current Living Situation: Spouse current occupational status: disabled Other Information That Helps Us Care for You: Yes (RECEIVES HOME HEALTH CARE ([facility]) Feels Safe at Home: Yes Smoking Status: Current every day smoker Tobacco Type: cigarettes ; Cigarettes Per Day: < 5 ; Do You Dip or Chew Tobacco: No ; Second Hand Exposure: Yes ; Tobacco Cessation Education Requested by Patient: No Hx Alcohol Use: No Hx Substance Use: No Review of Systems Review of Systems: A complete 10 point review of systems was reviewed with the patient with pertinent positives and negatives as per history of present illness. All else were negative. Physical Exam Physical Exam: VITAL SIGNS - Vital signs and nursing notes were reviewed. GENERAL - 68-year-old female appearing her stated age who is in no acute distress. Communicates well with provider and answers questions appropriately. SKIN - Dressings to the RIGHT lower extremity clean, dry, and intact. HEAD - NC/AT. EYES - PERRL with EOMI bilaterally. Sclera anicteric. EARS - No deformities of external structures noted on gross examination bilaterally. NOSE - Midline and without cyanosis. MOUTH/OROPHARYNX - Without perioral cyanosis. NECK - Neck with FROM. Supple to palpation. No nuchal rigidity. LUNGS - Chest wall symmetric without accessory muscle use, intercostals retractions, or central cyanosis. Normal vesicular breath sounds CTA B/L. No wheezes, rales, or rhonchi appreciated. CARDIAC - RRR with S1/S2. No murmur, rubs, or gallops appreciated. ABDOMEN - Abdominal contour obese without pulsations or visible masses. BS normoactive all four quadrants. No tenderness, palpable masses, hepatosplenomegaly, or ascites noted. EXTREMITIES -prior BKA of the LEFT lower extremity. Purplish discoloration of the RIGHT foot. Dressings to the medial surface of the RIGHT leg clean, dry, and intact. Dopplerable pulses noted. Range of motion persist. Some slight decrease sensation to the RIGHT foot. PSYCH - A&Ox3 and cooperates fully with examiner. Pt is very pleasant and interacts well with examiner. Results & Data Vital Signs (Past 12 Hours) Vital Signs Temp Pulse Pulse Pulse Resp BP BP 11/02/19 20:15 75 14 11/02/19 20:00 36.8 C 77 14 131/79 11/02/19 19:45 75 16 119/60 11/02/19 19:30 37.4 C 78 16 102/58 L 11/02/19 19:15 37.3 C 80 25 H 121/64 11/02/19 19:05 82 13 123/59 L 11/02/19 18:55 83 10 L 137/69 11/02/19 18:45 82 13 139/81 11/02/19 18:37 37.5 C 83 18 145/74 H 11/02/19 08:57 36.9 C 61 18 127/70 Pulse Ox 11/02/19 20:15 97 11/02/19 20:00 97 11/02/19 19:45 98 11/02/19 19:30 97 11/02/19 19:15 96 11/02/19 19:05 98 11/02/19 18:55 98 11/02/19 18:45 100 11/02/19 18:37 100 11/02/19 08:57 96 Coding Level of Care Code Critical Care 1st 30-74 mins Diagnoses Admitted to intensive care unit Z78.9 Encounter for pre-operative examination Z01.818 Diabetic ulcer of toe associated with type 2 diabetes mellitus, with fat layer exposed E11.621; L97.512 Laterality: right Stage II pressure ulcer L89.892 Pressure injury location: other site Traumatic wound S/P vascular surgery Z98.890 Time Spent (min) 30 (1) Stage II pressure ulcer Pressure injury location: other site Qualified Code(s): L89.892 - Pressure ulcer of other site, stage 2 (2) Diabetic ulcer of toe associated with type 2 diabetes mellitus, with fat layer exposed Laterality: right Qualified Code(s): E11.621 - Type 2 diabetes mellitus with foot ulcer; L97.512 - Non-pressure chronic ulcer of other part of right foot with fat layer exposed
[2019-11-02] MEDS: BUDESONIDE/FORMOTEROL FUMARATE 160/4.5 60 PUFFS/INHALER INH SCH ×2 (21:02→22:09)
[2019-11-02] MEDS: ATORVASTATIN 40 MG TAB PO SCH (21:09)
[2019-11-02] MEDS: GABAPENTIN 800 MG TAB PO SCH (21:09)
[2019-11-02] MEDS: METOPROLOL SUCC 25MG EXT REL TAB PO SCH (21:09)
[2019-11-02] MEDS: FERROUS GLUCONATE 324 MG TAB PO SCH (21:11)
[2019-11-02] MEDS: CITALOPRAM 40 MG TAB PO SCH (21:11)
[2019-11-02] MEDS: MoRPHine SULFATE 4 MG/ML 1 ML CARP\\VIAL IV PRN (22:08)
[2019-11-02] MEDS: CLINDAMYCIN 600 MG in DEXTROSE 5% 50 ML IV SCH (22:23)
[2019-11-02] MEDS: TIOTROPIUM BROMIDE 5 PUFF/90 MCG INH INH SCH (22:23)
[2019-11-03 04:15] LABS: Basophils # (auto) 0.01 K/uL (0-0.2); Basophils % (auto) 0.1 %; Hematocrit (blood only) 32.6 % (37-47); Hemoglobin 10.4 g/dL (12.0-16.0); Immature Granulocytes # (auto) 0.01 K/uL (0.00-0.02); Immature Granulocytes % (auto) 0.1 %; Lymphocytes # (auto) 0.72 K/uL (1.2-3.4); Lymphocytes % (auto) 7.8 %; Mean Corpuscular Hemoglobin 26.9 pg (25-34); Mean Corpuscular Hgb Conc 31.9 g/dL (32-36); Mean Corpuscular Volume 84.5 fL (80-100); Mean Platelet Volume 9.6 fL (7.4-10.4); Monocytes # (auto) 0.68 K/uL (0.11-0.59); Monocytes % (auto) 7.4 %; Neutrophils # (auto) 7.76 K/uL (1.4-6.5); Neutrophils % (auto) 84.6 %; Platelet Count 135 K/uL (130-400); RDW Coefficient of Variation 17.3 % (11.5-14.5); RDW Standard Deviation 52.9 fL (36.4-46.3); Red Blood Count 3.86 M/uL (4.2-5.4); White Blood Count 9.18 K/uL (4.8-10.8)
[2019-11-03 04:32] LABS: BUN Creatinine Ratio 46.9 (10-20); Calcium 8.3 mg/dl (8.5-10.1); Creatinine Clr Calc Pharmacy 36.8 ml/min; Est GFR (African American) 63.2; Est GFR (Non-African American) 54.5; Magnesium 2.1 mg/dl (1.8-2.4); Phosphorus 3.6 mg/dl (2.5-4.9); Potassium 4.3 mmol/L (3.5-5.1)
[2019-11-03] MEDS: CLINDAMYCIN 600 MG in DEXTROSE 5% 50 ML IV SCH (06:03)
[2019-11-03] MEDS: GABAPENTIN 800 MG TAB PO SCH ×3 (07:55→20:51)
[2019-11-03] MEDS: FERROUS GLUCONATE 324 MG TAB PO SCH ×3 (07:55→20:53)
[2019-11-03] MEDS: predniSONE 50 MG TAB PO SCH (07:56)
[2019-11-03] MEDS: VITAMIN B COMPLEX TAB PO SCH (07:56)
[2019-11-03] MEDS: PANTOprazole 40 MG TAB PO SCH (07:56)
[2019-11-03] MEDS: FUROSEMIDE 40 MG TAB PO SCH ×2 (07:56→17:22)
[2019-11-03] MEDS: MAGNESIUM OXIDE 400 MG TAB PO SCH (07:56)
[2019-11-03] MEDS: FOLIC ACID 1 MG TAB PO SCH (07:56)
[2019-11-03] MEDS: OMEGA-3 (PURIFIED FISH OIL) 1 GM CAP PO SCH (07:56)
[2019-11-03] MEDS: SPIRONOLACTONE 100 MG TAB PO SCH (07:57)
[2019-11-03] MEDS: MULTIVITAMIN TAB PO SCH (07:57)
[2019-11-03] MEDS: BUDESONIDE/FORMOTEROL FUMARATE 160/4.5 60 PUFFS/INHALER INH SCH ×2 (07:57→20:50)
[2019-11-03] MEDS: ASPIRIN 81 MG ECTAB PO SCH (07:57)
--- NOTE | 2019-11-03 09:22 | Surgery Progress Note ---
Date of Service November 03, 2019 Assessment & Plan (1) S/P vascular surgery: She is doing well after her bypass surgery. We will remove her [place] IVs today and start physical therapy. We will have discharge planners to start working on rehab placement. She will be transferred to a regular room. (2) Acute blood loss anemia: Her hemoglobin slightly decreased from preop however she is asymptomatic and no transfusions will be undertaken. Subjective This is a 68-year-old female who is postop day 1 from a right femoral to posterior tibial in situ bypass. She has no complaints she claims her foot is warm and has feeling in it. Physical Exam Physical Exam: On exam the incisions are dry and clean. There is excellent Doppler signals of the right posterior tibial and dorsalis pedis. The toes however slight purplish but the toes and foot are warm. Constitutional: WD/WN, vitals as above Results & Data Vital Signs (Past 12 Hours) Vital Signs Temp Pulse Resp BP Pulse Ox 11/03/19 06:00 61 14 106/42 L 98 11/03/19 05:00 57 L 13 108/52 L 99 11/03/19 04:00 56 L 11 L 109/52 L 99 11/03/19 03:00 59 L 12 122/56 L 100 11/03/19 02:00 62 12 111/53 L 99 11/03/19 01:00 61 13 109/55 L 98 11/03/19 00:00 36.7 C 65 12 122/54 L 99 11/02/19 23:00 67 17 119/55 L 100 11/02/19 22:00 66 16 115/59 L 100 11/02/19 21:30 100
[2019-11-03] MEDS: TRAMADOL HCL 50 MG TABLET PO PRN ×2 (13:08→20:48)
[2019-11-03] MEDS: CLINDAMYCIN HCL 150 MG CAP PO SCH ×2 (13:11→20:44)
[2019-11-03] MEDS: ATORVASTATIN 40 MG TAB PO SCH (20:52)
[2019-11-03] MEDS: CITALOPRAM 40 MG TAB PO SCH (20:53)
[2019-11-03] MEDS: METOPROLOL SUCC 25MG EXT REL TAB PO SCH (21:42)
[2019-11-03] MEDS: TIOTROPIUM BROMIDE 5 PUFF/90 MCG INH INH SCH (21:42)
[2019-11-04 08:07] LABS: Hematocrit (blood only) 31.1 % (37-47); Hemoglobin 10.1 g/dL (12.0-16.0); Immature Granulocytes # (auto) 0.01 K/uL (0.00-0.02); Immature Granulocytes % (auto) 0.2 %; Lymphocytes # (auto) 0.62 K/uL (1.2-3.4); Lymphocytes % (auto) 9.9 %; Mean Corpuscular Hemoglobin 26.9 pg (25-34); Mean Corpuscular Hgb Conc 32.5 g/dL (32-36); Mean Corpuscular Volume 82.7 fL (80-100); Mean Platelet Volume 9.7 fL (7.4-10.4); Monocytes # (auto) 0.52 K/uL (0.11-0.59); Monocytes % (auto) 8.3 %; Neutrophils # (auto) 5.14 K/uL (1.4-6.5); Neutrophils % (auto) 81.6 %; Platelet Count 114 K/uL (130-400); RDW Coefficient of Variation 17.1 % (11.5-14.5); RDW Standard Deviation 51.4 fL (36.4-46.3); Red Blood Count 3.76 M/uL (4.2-5.4); White Blood Count 6.29 K/uL (4.8-10.8)
[2019-11-04] MEDS: CLINDAMYCIN HCL 150 MG CAP PO SCH (09:13)
[2019-11-04] MEDS: SPIRONOLACTONE 100 MG TAB PO SCH (09:14)
[2019-11-04] MEDS: GABAPENTIN 800 MG TAB PO SCH ×3 (09:14→20:36)
[2019-11-04] MEDS: MULTIVITAMIN TAB PO SCH (09:15)
[2019-11-04] MEDS: FERROUS GLUCONATE 324 MG TAB PO SCH ×3 (09:15→20:36)
[2019-11-04] MEDS: PANTOprazole 40 MG TAB PO SCH (09:15)
[2019-11-04] MEDS: VITAMIN B COMPLEX TAB PO SCH (09:16)
[2019-11-04] MEDS: ASPIRIN 81 MG ECTAB PO SCH (09:16)
[2019-11-04] MEDS: FOLIC ACID 1 MG TAB PO SCH (09:16)
[2019-11-04] MEDS: MAGNESIUM OXIDE 400 MG TAB PO SCH (09:17)
[2019-11-04] MEDS: FUROSEMIDE 40 MG TAB PO SCH ×2 (09:17→17:36)
[2019-11-04] MEDS: OMEGA-3 (PURIFIED FISH OIL) 1 GM CAP PO SCH (09:17)
[2019-11-04] MEDS: BUDESONIDE/FORMOTEROL FUMARATE 160/4.5 60 PUFFS/INHALER INH SCH ×2 (09:18→20:34)
[2019-11-04] MEDS: TRAMADOL HCL 50 MG TABLET PO PRN ×2 (09:19→22:07)
[2019-11-04] MEDS: predniSONE 50 MG TAB PO SCH (09:20)
--- NOTE | 2019-11-04 13:47 | Surgery Progress Note ---
Date of Service November 04, 2019 Assessment & Plan (1) S/P vascular surgery: She is doing well after her bypass surgery. She can go to rehab when bed available. Subjective This is a 68-year-old female who is postop day 2 from a right femoral to posterior tibial in situ bypass. She has no complaints she claims her foot is warm and has feeling in it. She has been up out of bed Physical Exam Constitutional: WD/WN, vitals as above Cardiovascular: Vessels: posterior tibial pulses present (palp on right) and dorsalis pedis pulses present (good doppler on right) Extremities: normal capillary refill Skin: + ecchymosis (present in right groin and posterior thigh) and + incision (all incisions are dry and clean,) Results & Data Vital Signs (Past 12 Hours) Vital Signs Temp Pulse Resp BP Pulse Ox 11/04/19 07:05 36.8 C 57 L 16 110/56 L 99
[2019-11-04] MEDS: METOPROLOL SUCC 25MG EXT REL TAB PO SCH (20:33)
[2019-11-04] MEDS: ATORVASTATIN 40 MG TAB PO SCH (20:35)
[2019-11-04] MEDS: CITALOPRAM 40 MG TAB PO SCH (20:35)
[2019-11-04] MEDS: TIOTROPIUM BROMIDE 5 PUFF/90 MCG INH INH SCH (22:07)
[2019-11-05] MEDS: BUDESONIDE/FORMOTEROL FUMARATE 160/4.5 60 PUFFS/INHALER INH SCH ×2 (09:03→20:39)
[2019-11-05] MEDS: GABAPENTIN 800 MG TAB PO SCH ×3 (09:04→20:39)
[2019-11-05] MEDS: FERROUS GLUCONATE 324 MG TAB PO SCH ×3 (09:04→20:38)
[2019-11-05] MEDS: MAGNESIUM OXIDE 400 MG TAB PO SCH (09:05)
[2019-11-05] MEDS: PANTOprazole 40 MG TAB PO SCH (09:05)
[2019-11-05] MEDS: MULTIVITAMIN TAB PO SCH (09:05)
[2019-11-05] MEDS: OMEGA-3 (PURIFIED FISH OIL) 1 GM CAP PO SCH (09:05)
[2019-11-05] MEDS: FOLIC ACID 1 MG TAB PO SCH (09:06)
[2019-11-05] MEDS: VITAMIN B COMPLEX TAB PO SCH (09:06)
[2019-11-05] MEDS: ASPIRIN 81 MG ECTAB PO SCH (09:06)
[2019-11-05] MEDS: FUROSEMIDE 40 MG TAB PO SCH ×2 (09:07→17:17)
[2019-11-05] MEDS: SPIRONOLACTONE 100 MG TAB PO SCH (09:07)
--- NOTE | 2019-11-05 11:06 | Surgery Progress Note ---
Date of Service November 05, 2019 Assessment & Plan (1) S/P vascular surgery: She is doing well after her bypass surgery. She can go to rehab when bed available. Awaiting insurance auth for [employer]. Subjective This is a 68-year-old female who is POD #3 from a right femoral to posterior tibial in situ bypass. She has no complaints she claims her foot is warm and has feeling in it. She has been up out of bed. Admits fatigue, but states overall feeling better. No new complaints. Review of Systems Review of Systems: All systems reviewed & are unremarkable except as noted in HPI & below Physical Exam Constitutional: WD/WN, vitals as above Cardiovascular: Vessels: posterior tibial pulses present (palp on right) and dorsalis pedis pulses present (good doppler on right) Extremities: normal capillary refill Skin: + rash (L medial thigh large patch dry erythema, not raised), + ecchymosis (present in right groin and posterior thigh) and + incision (intact with walter. Chronic erythema noted to lower leg, +edema.) Results & Data Vital Signs (Past 12 Hours) Vital Signs Temp Pulse Resp BP Pulse Ox 11/05/19 07:20 37.5 C 60 16 111/63 98
[2019-11-05] MEDS: TRAMADOL HCL 50 MG TABLET PO PRN (15:29)
[2019-11-05] MEDS: ATORVASTATIN 40 MG TAB PO SCH (20:38)
[2019-11-05] MEDS: CITALOPRAM 40 MG TAB PO SCH (20:38)
[2019-11-05] MEDS: METOPROLOL SUCC 25MG EXT REL TAB PO SCH (20:39)
[2019-11-05] MEDS: TIOTROPIUM BROMIDE 5 PUFF/90 MCG INH INH SCH (20:40)
--- NOTE | 2019-11-06 09:21 | Surgery Progress Note ---
Date of Service November 06, 2019 Assessment & Plan (1) S/P vascular surgery: Doing well post op. Will continue to increase activity. Await placement. Planning on Friday. Will start on prophylactic oral antibiotics for her right leg redness. (2) Acute blood loss anemia: Subjective Patient has no complaints. She feels much better today. Physical Exam Physical Exam: Awake and alert Incisions all dry and clean Excellent PT and DP on right to doppler. Right lower leg slightly erythematous. There is also a slightly reddened area in her medial mid thigh on the left leg. Constitutional: WD/WN, vitals as above Results & Data Vital Signs (Past 12 Hours) Vital Signs Temp Pulse Resp BP BP Pulse Ox 11/06/19 08:14 36.8 C 60 18 107/58 L 93 11/05/19 23:31 37.7 C H 56 L 17 116/61 95
[2019-11-06] MEDS: BUDESONIDE/FORMOTEROL FUMARATE 160/4.5 60 PUFFS/INHALER INH SCH ×2 (10:03→20:55)
[2019-11-06] MEDS: VITAMIN B COMPLEX TAB PO SCH (10:05)
[2019-11-06] MEDS: ASPIRIN 81 MG ECTAB PO SCH (10:05)
[2019-11-06] MEDS: PANTOprazole 40 MG TAB PO SCH (10:05)
[2019-11-06] MEDS: MULTIVITAMIN TAB PO SCH (10:05)
[2019-11-06] MEDS: FOLIC ACID 1 MG TAB PO SCH (10:05)
[2019-11-06] MEDS: MAGNESIUM OXIDE 400 MG TAB PO SCH (10:05)
[2019-11-06] MEDS: GABAPENTIN 800 MG TAB PO SCH ×3 (10:06→20:55)
[2019-11-06] MEDS: OMEGA-3 (PURIFIED FISH OIL) 1 GM CAP PO SCH (10:07)
[2019-11-06] MEDS: SPIRONOLACTONE 100 MG TAB PO SCH (10:07)
[2019-11-06] MEDS: FERROUS GLUCONATE 324 MG TAB PO SCH ×3 (10:07→20:54)
[2019-11-06] MEDS: FUROSEMIDE 40 MG TAB PO SCH ×2 (10:08→16:50)
[2019-11-06] MEDS ORDERED: levoFLOXacin 500 MG TAB PO SCH (11:00)
[2019-11-06] MEDS: TRAMADOL HCL 50 MG TABLET PO PRN (16:54)
[2019-11-06] MEDS: MoRPHine SULFATE 4 MG/ML 1 ML CARP\\VIAL IV PRN (18:36)
[2019-11-06] MEDS: ATORVASTATIN 40 MG TAB PO SCH (20:53)
[2019-11-06] MEDS: METOPROLOL SUCC 25MG EXT REL TAB PO SCH (20:53)
[2019-11-06] MEDS: CITALOPRAM 40 MG TAB PO SCH (20:54)
[2019-11-06] MEDS: TIOTROPIUM BROMIDE 5 PUFF/90 MCG INH INH SCH ×3 (20:57→21:05)
[2019-11-06] MEDS ORDERED: NITROGLYCERIN 0.3 MG/1 TAB 100 TAB BTL SL STA (22:24)
--- NOTE | 2019-11-07 00:19 | Consultation ---
Date of Consultation November 07, 2019 History of Present Illness Requesting Physician: Dr. Park Reason for Consultation: chest pain Attending Physician: Elijah Park MD History of Present Illness Yael Hinkle is a pleasant 68yo C female with multiple medical comorbidities most notably CAD s/p [place] with stent placed in 2004, combined systolic/diastolic CHF (EF of 40-45% per echo in April 2019), valvular heart disease, PAD, DM, HTN, HLP, CKD, Cirrhosis. She was initially admitted on 11/02/19 s/p right common femoral endarterectomy with right femoral to posterior tibial artery in situ bypass. Surgery was well tolerated. Patient was admitted to the MICU post-operatively. She has had an unremarkable post- operative course and is to be discharged on 11/08/19. Allergies Allergy/AdvReac Type Severity Reaction Status Date / Time Penicillins Allergy Unknown hives/upset Verified 11/02/19 08:28 stomach/diarrhea Iodinated Contrast Media AdvReac Unknown severe Verified 11/02/19 08:28 [Iodinated Contrast- Oral vomiting and IV Dye] oxycodone [From Percocet] AdvReac Unknown vomiting Verified 10/26/19 10:44 Home Medications Home Medications Medication Instructions Recorded Confirmed Type aspirin 81 mg tablet,delayed 81 mg PO QAM 07/22/18 11/02/19 History release citalopram 40 mg tablet 40 mg PO HS 07/22/18 11/02/19 History gabapentin 800 mg tablet 800 mg PO TID tab 07/22/18 11/02/19 History omega 3-gwf-kbl-fish oil 1,000 mg 1 cap PO DAILY cap 07/22/18 11/02/19 History (120 mg-180 mg) capsule Symbicort 2 puff INHALATION BID 03/01/19 11/02/19 History atorvastatin 80 mg PO HS 03/01/19 11/02/19 History ferrous gluconate 324 mg PO TID 03/01/19 11/02/19 History folic acid 1 mg PO QAM 03/01/19 11/02/19 History ipratropium-albuterol 3 ml INHALATION Q6H PRN 03/01/19 11/02/19 History metoprolol succinate 12.5 mg PO QPM 03/01/19 11/02/19 History multivitamin 1 tab PO QAM 03/01/19 11/02/19 History omeprazole 40 mg PO QAM 03/01/19 11/02/19 History vitamin B complex 1 tab PO QAM 03/01/19 11/02/19 History furosemide [Lasix] 40 mg PO BID 04/05/19 11/02/19 History magnesium oxide 400 mg PO QAM 04/05/19 11/02/19 History nitroglycerin 0.4 mg SUBLINGUAL UD PRN 04/05/19 11/02/19 History tramadol 50 mg PO BID PRN 07/15/19 11/02/19 History tiotropium bromide 18 mcg capsule 1 cap INH HS 09/02/19 11/02/19 History with inhalation device spironolactone 100 mg PO QAM 09/13/19 11/02/19 History clindamycin HCl 300 mg capsule 300 mg PO TID #90 cap 10/07/19 11/02/19 Rx ibuprofen 600 mg PO HS PRN 10/25/19 11/02/19 History prednisone 50 mg PO DAILY 11/02/19 11/02/19 History Patient History Medical History Acid reflux CAD (coronary artery disease) (Chronic) 2004 -PCI to unknown vessel Chronic combined systolic and diastolic CHF (congestive heart failure) (Chronic) EF 40 to 44%, grade 2 diastolic dysfunction Cirrhosis of liver "UNDETERMINED ORIGIN" CKD (chronic kidney disease), stage III (Chronic) pt denies having any problems with kidneys. COPD (chronic obstructive pulmonary disease) (Chronic) Diabetic peripheral neuropathy (Chronic) History of anxiety History of depression History of endometriosis "STAGE 1 GRADE 1" History of sleep apnea HX CPAP SARANYA (iron deficiency anemia) (Chronic) Impaired fasting glucose A1C 6/1% 05/2019 Ischemic cardiomyopathy (Chronic) EF 40-44% PAD (peripheral artery disease) (Chronic) Snores Valvular heart disease (Chronic) mod-severe MR, mod TR Surgical History History of anesthesia reaction PT REPORTS URINARY RETENTION POST OP, USUALLY REQUIRING STRAIGHT CATH History of bilateral carotid endarterectomy (Chronic) History of cardiac cath 2004 ..TOLD HAD 2 WV'S - STENT X1 History of cholecystectomy (Chronic) History of colonoscopy History of hysterectomy (Chronic) supracervical History of left below knee amputation (Chronic) History of lumbar discectomy S/P angioplasty UNABLE TO PERFORM 10/22/19 - REASON FOR UPCOMING SURGERY Family History Father Family history of diabetes mellitus Family history of COPD (chronic obstructive pulmonary disease) Sister Breast cancer Social History Preferred Language: Icelandic Communication Ability: Effective Visual Impairment: Limited Hearing Ability: Normal Adult Remedial Education Instructor Required: No Beliefs That Will Affect Care: None marital status: Current Living Situation: Spouse current occupational status: disabled Other Information That Helps Us Care for You: Yes (RECEIVES HOME HEALTH CARE ([facility])) Feels Safe at Home: Yes Smoking Status: Current every day smoker Tobacco Type: cigarettes ; Cigarettes Per Day: < 5 ; Do You Dip or Chew Tobacco: No ; Second Hand Exposure: Yes ; Tobacco Cessation Education Requested by Patient: No Hx Alcohol Use: No Hx Substance Use: No Results & Data Vital Signs (Past 12 Hours) Vital Signs Temp Pulse Pulse Pulse Resp BP BP 11/06/19 23:15 55 L 102/51 L 11/06/19 22:58 93/46 L 11/06/19 22:56 37.7 C H 57 L 16 83/49 L 11/06/19 22:30 60 137/71 11/06/19 20:50 37.6 C H 57 L 20 107/54 L 11/06/19 20:03 37.7 C H 11/06/19 19:25 38.2 C H 57 L 16 118/61 11/06/19 15:01 37.4 C 54 L 16 149/54 H Pulse Ox 11/06/19 23:15 11/06/19 22:58 11/06/19 22:56 98 11/06/19 22:30 98 11/06/19 20:50 96 11/06/19 20:03 11/06/19 19:25 97 11/06/19 15:01 93 Diagnostic Findings ECHOCARDIOGRAM: 05/08/19 -trivial circumferential pericardial effusion of non-hemodynamic significance is present -LV is normal in size -Moderate concentric LVH -Inferior wall is moderately hypokinetic. Remaining LV wall segments are mildly hypokinetic -EF = 40 - 45% -Moderately calcified, trileaflet aortic valve with moderate aortic stenosis and mild aortic regurgitation -Moderate mitral annular calcification -Moderate to severe MR -Moderate TR -PH with RVSP of 40-50 mmHg PG Care Time/CCT Total # of Minutes Spent Total Time Spent with Patient: Total time spent is greater than 50% in coordination of care (as documented) at patient's floor/unit and/or counseling patient:
[2019-11-07 01:11] LABS: Basophils # (auto) 0.01 K/uL (0-0.2); Basophils % (auto) 0.1 %; Hematocrit (blood only) 33.6 % (37-47); Hemoglobin 11.2 g/dL (12.0-16.0); Immature Granulocytes # (auto) 0.01 K/uL (0.00-0.02); Immature Granulocytes % (auto) 0.1 %; Lymphocytes # (auto) 1.02 K/uL (1.2-3.4); Lymphocytes % (auto) 12.4 %; Mean Corpuscular Hemoglobin 27.5 pg (25-34); Mean Corpuscular Hgb Conc 33.3 g/dL (32-36); Mean Corpuscular Volume 82.6 fL (80-100); Mean Platelet Volume 9.7 fL (7.4-10.4); Monocytes # (auto) 0.68 K/uL (0.11-0.59); Monocytes % (auto) 8.2 %; Neutrophils # (auto) 6.53 K/uL (1.4-6.5); Neutrophils % (auto) 79.2 %; Platelet Count 148 K/uL (130-400); RDW Coefficient of Variation 17.2 % (11.5-14.5); RDW Standard Deviation 52.2 fL (36.4-46.3); Red Blood Count 4.07 M/uL (4.2-5.4); White Blood Count 8.25 K/uL (4.8-10.8)
--- NOTE | 2019-11-07 01:19 | Hospitalist Consultation ---
Date of Consultation November 07, 2019 Assessment & Plan (1) Chest pain: Final Assessment and Recommendations as follows : Post op chest pain Anginal as per patient's description hx CAD status post stent ARF, hyponatremia secondary to diuretic Rx Recurrent RLE cellulitis Possible sepsis hx MRSA as per records Rule out postop DVT chronic systolic heart failure secondary to ischemic cardiomyopathy (EF 40-45%, TTE 2019), patient on the dry side valvular heart disease (moderate /MR/TR) PVD status post surgery HTN, BP on the lower side COPD, ongoing tobacco abuse, AAT deficiency as per records, pulmonary status at baseline hx NAFLD cirrhosis as per records, no overt decompensation rheumatoid arthritis as per records Hyperglycemia secondary to prediabetes, hemoglobin A1c of 6.17 June 2019 Postop anemia past alcohol abuse PCU transfer Follow troponin Cardio consult, TTE if with progression Continue home aspirin for secondary CAD prevention Continue home beta-alma Nitro as needed chest pain Careful correction of sodium w/ IVF, hyponatremia work-up Baseline UA Appropriate to hold home diuretics for now until creatinine to baseline Cultures, Daptomycin for RLE cellulitis DC Levaquin ID consult RE recurrent RLE cellulitis [place] [facility] [place] venous Dopplers rule DVT Trend H&H, transfuse PRBC if hemoglobin less than 8 and or for symptomatic anemia Nicotine patch Recommend Heparin 5000 units SQ q8 hours for DVT prophylaxis. Thank you very much for this consultation. Dr. Davis will follow patient's progress. Addendum: RLE venous Dopplers initial read: No DVT. Right groin fluid collection measuring 2.8 x 0.9 x 4.7, possible postop hematoma. Subcutaneous edema noted in the calf. Enlarged lymph nodes what are presumed incidental. Hold aspirin for now RE possible postop hematoma No pharmacologic anticoagulation for DVT prophylaxis given above findings. SCDs contraindicated with PAD. History of Present Illness Reason for Consultation: Chest pain evaluation, medical management Requesting Physician: Dr. Park Attending Physician: Elijah Park MD History of Present Illness PCP : Dr. Dudley History obtained from patient and records. Medical history significant for chronic systolic heart failure secondary to ischemic cardiomyopathy (EF 40-45%, TTE 2019), CAD status post stent, valvular heart disease (moderate /MR/TR), PVD status post surgery, HTN, hyperlipidemia, COPD, ongoing tobacco abuse, AAT deficiency as per records, SHEILA as per records, hx cirrhosis as per records, rheumatoid arthritis as per records, past alcohol abuse, history of MRSA. Recent confinement last month for RLE cellulitis. Patient discharged on 2-week ceftaroline course. Patient subsequently switched to oral clindamycin course by ID with instructions to take medication until scheduled elective bypass procedure for RLE artery occlusion scheduled for November 02, 2019. Patient underwent scheduled vascular procedure last October 2019 as planned. Monitored at the ICU postop and transferred to the floor the following day. 2 nights ago, patient noted to have fever spike. Yesterday morning, right lower extremity was noted to be red. Patient started by vascular surgeon on Levaquin. Intermittent fever yesterday. Around 10 PM last night, patient noted substernal discomfort across her chest with some shortness of breath similar to her heart attack while on the commode. She was not even straining at that time. Chest discomfort relieved by nitroglycerin. No unusual cough symptoms. Patient currently comfortable. Complaining of RLE discomfort. Medical History as above Surgical History : Vascular procedures, cholecystectomy, hysterectomy, left BKA, back surgery Family History : Alcoholism, breast cancer, COPD, diabetes, PVD Personal/Social history : 5 cigarettes a day, past alcohol abuse as per records, [employer] employee Allergies Allergy/AdvReac Type Severity Reaction Status Date / Time Penicillins Allergy Unknown hives/upset Verified 11/02/19 08:28 stomach/diarrhea Iodinated Contrast Media AdvReac Unknown severe Verified 11/02/19 08:28 [Iodinated Contrast- Oral vomiting and IV Dye] oxycodone [From Percocet] AdvReac Unknown vomiting Verified 10/26/19 10:44 Home Medications Home Medications Medication Instructions Recorded Confirmed Type aspirin 81 mg tablet,delayed 81 mg PO QAM 07/22/18 11/02/19 History release citalopram 40 mg tablet 40 mg PO HS 07/22/18 11/02/19 History gabapentin 800 mg tablet 800 mg PO TID tab 07/22/18 11/02/19 History omega 1-nxx-wzf-fish oil 1,000 mg 1 cap PO DAILY cap 07/22/18 11/02/19 History (120 mg-180 mg) capsule Symbicort 2 puff INHALATION BID 03/01/19 11/02/19 History atorvastatin 80 mg PO HS 03/01/19 11/02/19 History ferrous gluconate 324 mg PO TID 03/01/19 11/02/19 History folic acid 1 mg PO QAM 03/01/19 11/02/19 History ipratropium-albuterol 3 ml INHALATION Q6H PRN 03/01/19 11/02/19 History metoprolol succinate 12.5 mg PO QPM 03/01/19 11/02/19 History multivitamin 1 tab PO QAM 03/01/19 11/02/19 History omeprazole 40 mg PO QAM 03/01/19 11/02/19 History vitamin B complex 1 tab PO QAM 03/01/19 11/02/19 History furosemide [Lasix] 40 mg PO BID 04/05/19 11/02/19 History magnesium oxide 400 mg PO QAM 04/05/19 11/02/19 History nitroglycerin 0.4 mg SUBLINGUAL UD PRN 04/05/19 11/02/19 History tramadol 50 mg PO BID PRN 07/15/19 11/02/19 History tiotropium bromide 18 mcg capsule 1 cap INH HS 09/02/19 11/02/19 History with inhalation device spironolactone 100 mg PO QAM 09/13/19 11/02/19 History clindamycin HCl 300 mg capsule 300 mg PO TID #90 cap 10/07/19 11/02/19 Rx ibuprofen 600 mg PO HS PRN 10/25/19 11/02/19 History prednisone 50 mg PO DAILY 11/02/19 11/02/19 History Patient History Medical History Acid reflux CAD (coronary artery disease) (Chronic) 2004 -PCI to unknown vessel Chronic combined systolic and diastolic CHF (congestive heart failure) (Chronic) EF 40 to 44%, grade 2 diastolic dysfunction Cirrhosis of liver "UNDETERMINED ORIGIN" CKD (chronic kidney disease), stage III (Chronic) pt denies having any problems with kidneys. COPD (chronic obstructive pulmonary disease) (Chronic) Diabetic peripheral neuropathy (Chronic) History of anxiety History of depression History of endometriosis "STAGE 1 GRADE 1" History of sleep apnea HX CPAP SARANYA (iron deficiency anemia) (Chronic) Impaired fasting glucose A1C 6/1% 05/2019 Ischemic cardiomyopathy (Chronic) EF 40-44% PAD (peripheral artery disease) (Chronic) Snores Valvular heart disease (Chronic) mod-severe MR, mod TR Surgical History History of anesthesia reaction PT REPORTS URINARY RETENTION POST OP, USUALLY REQUIRING STRAIGHT CATH History of bilateral carotid endarterectomy (Chronic) History of cardiac cath 2004 ..TOLD HAD 2 CT'S - STENT X1 History of cholecystectomy (Chronic) History of colonoscopy History of hysterectomy (Chronic) supracervical History of left below knee amputation (Chronic) History of lumbar discectomy S/P angioplasty UNABLE TO PERFORM 10/22/19 - REASON FOR UPCOMING SURGERY Family History Father Family history of diabetes mellitus Family history of COPD (chronic obstructive pulmonary disease) Sister Breast cancer Social History Preferred Language: Korean Communication Ability: Effective Visual Impairment: Limited Hearing Ability: Normal Bed Laborer Required: No Beliefs That Will Affect Care: None marital status: Current Living Situation: Spouse current occupational status: disabled Other Information That Helps Us Care for You: Yes (RECEIVES HOME HEALTH CARE ([facility]) Feels Safe at Home: Yes Smoking Status: Current every day smoker Tobacco Type: cigarettes ; Cigarettes Per Day: < 5 ; Do You Dip or Chew Tobacco: No ; Second Hand Exposure: Yes ; Tobacco Cessation Education Requested by Patient: No Hx Alcohol Use: No Hx Substance Use: No Review of Systems Review of Systems: As per HPI, all 10 systems reviewed, all other ROS negative Physical Exam Physical Exam: GENERAL: Comfortable, pleasant, no respiratory distress SKIN: Pallor , warm HEENT: Bespectacled, pale palpebral conjunctivae, no ptosis, dry buccal mucosa NECK : Supple, no tenderness CHEST : Decreased breath sounds , no tenderness HEART : Bradycardic, systolic murmur ABDOMEN: Some distention, nontender EXTREMITIES : Tender shiny RLE induration, left BKA amputation stump NEUROLOGIC : Coherent, no facial asymmetry, no other gross focality Results & Data Vital Signs (Past 12 Hours) Vital Signs Temp Pulse Pulse Pulse Resp BP BP 11/06/19 23:15 55 L 102/51 L 11/06/19 22:58 93/46 L 11/06/19 22:56 37.7 C H 57 L 16 83/49 L 11/06/19 22:30 60 137/71 11/06/19 20:50 37.6 C H 57 L 20 107/54 L 11/06/19 20:03 37.7 C H 11/06/19 19:25 38.2 C H 57 L 16 118/61 11/06/19 15:01 37.4 C 54 L 16 149/54 H Pulse Ox 11/06/19 23:15 11/06/19 22:58 11/06/19 22:56 98 11/06/19 22:30 98 11/06/19 20:50 96 11/06/19 20:03 11/06/19 19:25 97 11/06/19 15:01 93 Laboratory Results Laboratory Results WBC 8.25 K/uL (4.8-10.8) 11/07/19 01:00 RBC 4.07 M/uL (4.2-5.4) L 11/07/19 01:00 Hgb 11.2 g/dL (12.0-16.0) L 11/07/19 01:00 Hct 33.6 % (37-47) L 11/07/19 01:00 MCV 82.6 fL (80-100) 11/07/19 01:00 MCH 27.5 pg (25-34) 11/07/19 01:00 MCHC 33.3 g/dL (32-36) 11/07/19 01:00 RDW Std Deviation 52.2 fL (36.4-46.3) H 11/07/19 01:00 RDW Coeff of Tiburcio 17.2 % (11.5-14.5) H 11/07/19 01:00 Plt Count 148 K/uL (130-400) 11/07/19 01:00 MPV 9.7 fL (7.4-10.4) 11/07/19 01:00 Immature Gran % (Auto) 0.1 % 11/07/19 01:00 Neut % (Auto) 79.2 % 11/07/19 01:00 Lymph % (Auto) 12.4 % 11/07/19 01:00 Barber % (Auto) 8.2 % 11/07/19 01:00 Eos % (Auto) 0.0 % 11/07/19 01:00 Baso % (Auto) 0.1 % 11/07/19 01:00 Immature Gran # (Auto) 0.01 K/uL (0.00-0.02) 11/07/19 01:00 Neut # (Auto) 6.53 K/uL (1.4-6.5) H 11/07/19 01:00 Lymph # (Auto) 1.02 K/uL (1.2-3.4) L 11/07/19 01:00 Barber # (Auto) 0.68 K/uL (0.11-0.59) H 11/07/19 01:00 Eos # (Auto) 0.00 K/uL (0-0.5) 11/07/19 01:00 Baso # (Auto) 0.01 K/uL (0-0.2) 11/07/19 01:00 PT 11.3 Seconds (9.0-12.0) 10/28/19 14:21 INR 1.1 (0.9-1.1) 10/28/19 14:21 APTT 29.1 Seconds (21.0-31.0) 11/07/19 01:00 PTT Ratio 1.1 11/07/19 01:00 Sodium 125 mmol/L (136-145) L 11/07/19 01:00 Potassium 4.3 mmol/L (3.5-5.1) 11/07/19 01:00 Chloride 86 mmol/L (98-107) L 11/07/19 01:00 Carbon Dioxide 37 mmol/L (21-32) H 11/07/19 01:00 Anion Gap 2.0 (3-11) L 11/07/19 01:00 BUN 63 mg/dl (7-18) H 11/07/19 01:00 Creatinine 1.50 mg/dl (0.6-1.2) H 11/07/19 01:00 Est Cr Clr Drug Dosing 29.5 ml/min 11/07/19 01:00 Est GFR ( Amer) 41.1 11/07/19 01:00 Est GFR (Non-Af Amer) 35.4 11/07/19 01:00 BUN/Creatinine Ratio 41.7 (10-20) H 11/07/19 01:00 Glucose 163 mg/dl (70-99) H 11/07/19 01:00 POC Glucose 152 (70-99) H 11/02/19 18:46 Lactate 1.8 mmol/L (0.4-2.0) 11/07/19 01:00 Calcium 8.4 mg/dl (8.5-10.1) L 11/07/19 01:00 Phosphorus 3.6 mg/dl (2.5-4.9) 11/03/19 03:56 Magnesium 2.2 mg/dl (1.8-2.4) 11/07/19 01:00 Total Bilirubin 0.9 mg/dl (0.2-1) 11/07/19 01:00 AST 32 U/L (15-37) 11/07/19 01:00 ALT 67 U/L (12-78) 11/07/19 01:00 Alkaline Phosphatase 167 U/L (45-117) H 11/07/19 01:00 Troponin I 0.024 ng/ml (0-0.045) 11/07/19 01:00 Total Protein 7.9 gm/dl (6.4-8.2) 11/07/19 01:00 Albumin 3.0 gm/dl (3.4-5.0) L 11/07/19 01:00 Globulin 4.9 gm/dl (2.5-4.0) H 11/07/19 01:00 Albumin/Globulin Ratio 0.6 (0.9-2) L 11/07/19 01:00 Lipase 124 U/L (73-393) 11/07/19 01:00 Blood Type A Positive 11/02/19 08:12 Antibody Screen NEGATIVE 11/02/19 08:12 Crossmatch See Detail 11/02/19 08:12 Diagnostic Findings Chest x-ray as per my interpretation: Atelectasis EKG as per my interpretation : Rate 65, NSR, normal axis, T wave flattening lateral leads, PVCs
[2019-11-07 01:24] LABS: Partial Thromboplastin Ratio 1.1; Partial Thromboplastin Time 29.1 Seconds (21.0-31.0)
[2019-11-07 01:28] LABS: BUN Creatinine Ratio 41.7 (10-20); Calcium 8.4 mg/dl (8.5-10.1); Creatinine Clr Calc Pharmacy 29.5 ml/min; Est GFR (African American) 41.1; Est GFR (Non-African American) 35.4; Magnesium 2.2 mg/dl (1.8-2.4); Potassium 4.3 mmol/L (3.5-5.1)
[2019-11-07 01:33] LABS: Albumin Globulin Ratio 0.6 (0.9-2); Bilirubin,Total 0.9 mg/dl (0.2-1); Globulin 4.9 gm/dl (2.5-4.0); Total Protein 7.9 gm/dl (6.4-8.2); Troponin I 0.024 ng/ml (0-0.045)
[2019-11-07] MEDS ORDERED: SODIUM CHLORIDE 0.9% 500 ML IV ONE (01:47)
[2019-11-07] MEDS ORDERED: HYDROCODONE/ACETAMINOPHEN 7.5/325MG TAB PO PRN (01:51)
[2019-11-07] MEDS ORDERED: NITROGLYCERIN SL 0.4 MG/TAB TAB SL PRN (01:57)
[2019-11-07] MEDS ORDERED: ACETAMINOPHEN 325 MG TAB PO PRN (01:57)
[2019-11-07] MEDS: NICOTINE 7 MG/24 HR TDSY TD SCH (02:04)
[2019-11-07] MEDS ORDERED: DAPTOMYCIN CONSULT ACTIVE PRN (02:42)
[2019-11-07] MEDS: DAPTOmycin 200 MG in SYRINGE 0 ML IV SCH (02:57)
[2019-11-07 03:08] LABS: Thyroid Stimulating Hormone 4.98 uIu/ml (0.300-4.500)
[2019-11-07 03:21] LABS: T4 Free Thyroxine 1.25 ng/dl (0.8-1.6)
[2019-11-07 03:37] LABS: Appearance Urine Clear (Clear); Bacteria Urine Automated Negative (Negative); Bilirubin Urine Negative (Negative); Blood Urine Trace (Negative); Cast Urine Automated 0 /lpf (0-5); Color Urine Yellow; Epithelial Cell Urine Auto 0-5 /lpf (0-5); Glucose Urine UA Negative (Negative); Ketones Urine Negative (Negative); Leukocyte Esterase Urine Negative (Negative); Nitrite Urine Negative (Negative); Protein Urine Negative (Negative); RBC Urine Automated 0-4 /hpf (0-4); Specific Gravity Urine 1.007 (1.000-1.030); Urobilinogen Urine Negative (Negative); WBC Urine Automated 0 /hpf (0-5); pH Urine 6.5 (4.5-7.5)
[2019-11-07 06:12] LABS: Basophils # (auto) 0.01 K/uL (0-0.2); Basophils % (auto) 0.2 %; Hematocrit (blood only) 30.8 % (37-47); Hemoglobin 10.3 g/dL (12.0-16.0); Immature Granulocytes # (auto) 0.01 K/uL (0.00-0.02); Immature Granulocytes % (auto) 0.2 %; Lymphocytes # (auto) 0.71 K/uL (1.2-3.4); Lymphocytes % (auto) 13.1 %; Mean Corpuscular Hemoglobin 27.2 pg (25-34); Mean Corpuscular Hgb Conc 33.4 g/dL (32-36); Mean Corpuscular Volume 81.3 fL (80-100); Mean Platelet Volume 10.7 fL (7.4-10.4); Monocytes % (auto) 9.3 %; Neutrophils # (auto) 4.17 K/uL (1.4-6.5); Neutrophils % (auto) 77.2 %; Platelet Count 121 K/uL (130-400); RDW Coefficient of Variation 17.3 % (11.5-14.5); Red Blood Count 3.79 M/uL (4.2-5.4)
[2019-11-07 06:36] LABS: BUN Creatinine Ratio 46.9 (10-20); Calcium 8.5 mg/dl (8.5-10.1); Creatinine Clr Calc Pharmacy 33.9 ml/min; Est GFR (African American) 49.7; Est GFR (Non-African American) 42.9; Magnesium 2.4 mg/dl (1.8-2.4); Potassium 4.1 mmol/L (3.5-5.1)
[2019-11-07 06:41] LABS: Phosphorus 3.3 mg/dl (2.5-4.9); Troponin I 0.023 ng/ml (0-0.045)
--- NOTE | 2019-11-07 06:57 | Ultrasound Report ---
RIGHT LOWER EXTREMITY VENOUS DOPPLER CLINICAL HISTORY: Right lower extremity pain and swelling. Recent bypass. COMPARISON STUDY: Right lower extremity venous Doppler ultrasound July 22, 2018. TECHNIQUE: Sonography of the deep venous system of the right lower extremity was performed. Compress ion and augmentation were evaluated. FINDINGS: Evaluation of the right groin and medial calf was suboptimal due to walter. Right greater saphenous vein was not visualized. The right common femoral, superficial femoral and popliteal veins were compressible. Augmentation was normal. Flow was shown within the deep calf vessels. A few mildly enlarged right inguinal lymph nodes are probably benign. A 4.7 x 2.8 x 0.9 cm hypoechoic focus withi n the right groin favors a small hematoma. IMPRESSION: 1. No evidence of deep venous thrombus within the right lower extremity although right groin and medi al right calf suboptimally assessed due to walter. 2. 4.7 x 2.8 x 0.9 cm right groin fluid collection which favors a small hematoma. 3. Several mildly enlarged right inguinal lymph nodes which are probably benign. ACT 112: Negative or not required by law. Electronically signed by: Prashanth Stevenson M.D. 11/07/2019 6:55 AM
--- NOTE | 2019-11-07 07:16 | Surgery Progress Note ---
Date of Service November 07, 2019 Assessment & Plan (1) S/P vascular surgery: Doing well post op. No changes in the lower extremities. Most likely can still be d/c'd on Friday. (2) Chest pain: No further chest pain. Will continue to monitor. Troponin .029 at its highest last pm and trending down. Subjective Patient had one episode of chest pain last pm relieved with one nitro SL. Feels better this am. No further chest discomfort. Denies any changes with her lower extremity. Physical Exam Constitutional: WD/WN, vitals as above Cardiovascular: Rate/Rhythm: regular rate and regular rhythm Vessels: posterior tibial pulses present (palp on right) and dorsalis pedis pulses present (good doppler on right) Extremities: normal capillary refill; no edema Skin: + rash (left inner thigh), + ecchymosis (present in right groin and posterior thigh) and + incision (all incisions are dry and clean.) Psychiatric: Orientation: alert and oriented x 3 Results & Data Vital Signs (Past 12 Hours) Vital Signs Temp Pulse Pulse Pulse Pulse Resp BP 11/07/19 02:43 59 L 11/07/19 01:45 37.2 C 63 17 111/36 L 11/06/19 23:15 55 L 11/06/19 22:58 11/06/19 22:56 37.7 C H 57 L 16 83/49 L 11/06/19 22:30 60 11/06/19 20:50 37.6 C H 57 L 20 11/06/19 20:03 37.7 C H 11/06/19 19:25 38.2 C H 57 L 16 BP Pulse Ox 11/07/19 02:43 11/07/19 01:45 97 11/06/19 23:15 102/51 L 11/06/19 22:58 93/46 L 11/06/19 22:56 98 11/06/19 22:30 137/71 98 11/06/19 20:50 107/54 L 96 11/06/19 20:03 11/06/19 19:25 118/61 97
--- NOTE | 2019-11-07 07:23 | XRay Report ---
XR chest 1V portable CLINICAL HISTORY: Chest pain. COMPARISON STUDY: Chest radiograph September 05, 2019. FINDINGS: Lung volumes are normal. Lungs are clear. There is no pneumothorax or pleural effusion. Car diac size is normal. Mediastinal contours are normal. There is no evidence for pulmonary edema. Sever e dextroscoliosis of the thoracic spine is incidentally noted as well as surgical clips within the ne ck. IMPRESSION: No acute cardiopulmonary findings. No significant change in appearance of the chest. Sev ere scoliosis. ACT 112: Negative or not required by law. Electronically signed by: Prashanth Stevenson M.D. 11/07/2019 7:22 AM
[2019-11-07] MEDS: GABAPENTIN 100 MG CAP PO SCH ×3 (08:45→21:05)
[2019-11-07] MEDS: PANTOprazole 40 MG TAB PO SCH (08:45)
[2019-11-07] MEDS: MAGNESIUM OXIDE 400 MG TAB PO SCH (08:45)
[2019-11-07] MEDS: FOLIC ACID 1 MG TAB PO SCH (08:45)
[2019-11-07] MEDS: OMEGA-3 (PURIFIED FISH OIL) 1 GM CAP PO SCH (08:45)
[2019-11-07] MEDS: MULTIVITAMIN TAB PO SCH (08:46)
[2019-11-07] MEDS: FERROUS GLUCONATE 324 MG TAB PO SCH ×3 (08:46→21:05)
[2019-11-07] MEDS: BUDESONIDE/FORMOTEROL FUMARATE 160/4.5 60 PUFFS/INHALER INH SCH ×2 (08:47→21:03)
[2019-11-07] MEDS ORDERED: levoFLOXacin 250 MG TABLET PO SCH (09:00)
--- NOTE | 2019-11-07 09:41 | Hospitalist Progress Note ---
Date of Service November 07, 2019 Assessment & Plan (1) Chest pain: 62 female with history of coronary disease, ischemic cardiomyopathy EF 40%, peripheral artery disease, COPD, hypertension Who is status post femoropopliteal bypass, presented with chest pain last evening. CHEST PAIN, POSSIBLE UNSTABLE ANGINA CAD, STATUS POST PLACEMENT Relieved by 1 dose of nitroglycerin sublingual Troponins x3 EKG no signs of acute ischemia or infarct Car Rental Clerk consulted Aspirin held secondary to right groin hematoma Continue metoprolol, atorvastatin STATUS POST RIGHT LOWER EXTREMITY FEMOROPOPLITEAL BYPASS, RECURRENT CELLULITIS Positive febrile episode overnight Blood cultures pending Daptomycin IV started given history of MRSA ID consulted RIGHT GROIN HEMATOMA Right lower extremity ultrasound:4.7 x 2.8 x 0.9 cm right groin fluid collection which favors a small hematoma. Hemoglobin stable at [address] Park ACUTE KIDNEY INJURY, CKD STAGE III Diuretics on hold Given IV NSS 100 cc overnight Improved from 1.5-1.28 Continue to hold diuretics for now, monitor creatinine ANEMIA, POSSIBLE ACUTE BLOOD LOSS Hemoglobin baseline 13, now 11.3 Aspirin on hold secondary to likely hematoma Monitor HYPONATREMIA Resolved with IV NSS Monitor ISCHEMIC CARDIOMYOPATHY EF 40 TO 45% VALVULAR HEART DISEASE, MODERATE AORTIC STENOSIS, MODERATE TO SEVERE MITRAL REGURGITATION On the dry side, hold Lasix and spironolactone Monitor HISTORY OF CIRRHOSIS But stated COPD No exacerbation Thank you for this consultation. We will follow the patient with you during their hospital stay. You can reach a member of the [facility] Hospitalist Team 09/06 via pager @ [phone]. Subjective Follow-up for chest pain Seen sitting up in chair, comfortable, not in distress, in good spirits States chest pain last night was pressure in the center of the chest, relieved by nitroglycerin x1 dose, no other associated symptoms No recurrence since then Denies active shortness of breath, palpitations, dizziness Minimal discomfort on the right lower leg, does report pain over the right groin No other symptoms Review of Systems Review of Systems: All systems reviewed & are unremarkable except as noted in HPI & below Physical Exam Physical Exam: General- oriented x 3, not in distress, speaks in sentences with no effort or accessory muscle use Head- atraumatic Eyes- PERRL, EOMI, anicteric ENT- oropharynx clear Neck- supple, no JVD, no adenopathy, no thyromegaly; carotids +2/2, no bruits appreciated Lungs- clear to auscultation bilaterally, no rales/wheezes Heart- normal rate, regular rhythm; no murmur, no gallop, no rub appreciated Abdomen- normal bowel sounds, nondistended, soft, nontender, no masses or hepatosplenomegaly Extremities-positive moderate swelling and erythema right inguinal/anterior thigh area, positive significant erythema and edema of the right lower leg, surgical wound healing well No warmth, positive mild tenderness Neuro- alert, oriented x 3; CN 2-12 grossly intact; motor 5/5 bilaterally;sensation 100% on all extremities; no other gross focal neurologic deficits Skin- warm & dry Results & Data Vital Signs (Past 12 Hours) Vital Signs Temp Pulse Pulse Pulse Pulse Resp BP 11/07/19 07:41 37.2 C 54 L 19 11/07/19 02:43 59 L 11/07/19 01:45 37.2 C 63 17 111/36 L 11/06/19 23:15 55 L 11/06/19 22:58 11/06/19 22:56 37.7 C H 57 L 16 83/49 L 11/06/19 22:30 60 BP Pulse Ox 11/07/19 07:41 121/42 L 99 11/07/19 02:43 11/07/19 01:45 97 11/06/19 23:15 102/51 L 11/06/19 22:58 93/46 L 11/06/19 22:56 98 11/06/19 22:30 137/71 98 Laboratory Results Laboratory Results - last 24 hr 11/06/19 11/07/19 11/07/19 22:42 01:00 01:00 WBC 8.25 RBC 4.07 L Hgb 11.2 L Hct 33.6 L MCV 82.6 MCH 27.5 MCHC 33.3 RDW Std Deviation 52.2 H RDW Coeff of Tiburcio 17.2 H Plt Count 148 MPV 9.7 Immature Gran % (Auto) 0.1 Neut % (Auto) 79.2 Lymph % (Auto) 12.4 [place] % (Auto) 8.2 Eos % (Auto) 0.0 Baso % (Auto) 0.1 Immature Gran # (Auto) 0.01 Neut # (Auto) 6.53 H Lymph # (Auto) 1.02 L [place] # (Auto) 0.68 H Eos # (Auto) 0.00 Baso # (Auto) 0.01 APTT PTT Ratio Sodium 125 L Potassium 4.3 Chloride 86 L Carbon Dioxide 37 H Anion Gap 2.0 L BUN 63 H Creatinine 1.50 H Est Cr Clr Drug Dosing 29.5 Est GFR ( Amer) 41.1 Est GFR (Non-Af Amer) 35.4 BUN/Creatinine Ratio 41.7 H Glucose 163 H Osmolality Lactate Calcium 8.4 L Phosphorus Magnesium 2.2 Total Bilirubin 0.9 AST 32 ALT 67 Alkaline Phosphatase 167 H Total Creatine Kinase 36 Troponin I 0.029 0.024 Total Protein 7.9 Albumin 3.0 L Globulin 4.9 H Albumin/Globulin Ratio 0.6 L Lipase 124 TSH 4.980 H Free T4 1.25 Urine Color Urine Appearance Urine pH Ur Specific [place] Urine Protein Urine Glucose (UA) Urine Ketones Urine Blood Urine Nitrite Urine Bilirubin Urine Urobilinogen Ur Leukocyte Esterase Urine WBC (Auto) Urine RBC (Auto) U Hyaline Cast (Auto) U Epithel Cells (Auto) Urine Bacteria (Auto) Urine Osmolality Ur Random Sodium 11/07/19 11/07/19 11/07/19 01:00 01:00 03:05 WBC RBC Hgb Hct MCV MCH MCHC RDW Std Deviation RDW Coeff of Tiburcio Plt Count MPV Immature Gran % (Auto) Neut % (Auto) Lymph % (Auto) Madison % (Auto) Eos % (Auto) Baso % (Auto) Immature Gran # (Auto) Neut # (Auto) Lymph # (Auto) Madison # (Auto) Eos # (Auto) Baso # (Auto) APTT 29.1 PTT Ratio 1.1 Sodium Potassium Chloride Carbon Dioxide Anion Gap BUN Creatinine Est Cr Clr Drug Dosing Est GFR ( Amer) Est GFR (Non-Af Amer) BUN/Creatinine Ratio Glucose Osmolality Lactate 1.8 Calcium Phosphorus Magnesium Total Bilirubin AST ALT Alkaline Phosphatase Total Creatine Kinase Troponin I Total Protein Albumin Globulin Albumin/Globulin Ratio Lipase TSH Free T4 Urine Color Yellow Urine Appearance Clear Urine pH 6.5 Ur Specific [place] 1.007 Urine Protein Negative Urine Glucose (UA) Negative Urine Ketones Negative Urine Blood Trace H Urine Nitrite Negative Urine Bilirubin Negative Urine Urobilinogen Negative Ur Leukocyte Esterase Negative Urine WBC (Auto) 0 Urine RBC (Auto) 0-4 U Hyaline Cast (Auto) 0 U Epithel Cells (Auto) 0-5 Urine Bacteria (Auto) Negative Urine Osmolality Ur Random Sodium 11/07/19 11/07/19 11/07/19 03:05 03:05 05:47 WBC 5.40 RBC 3.79 L Hgb 10.3 L Hct 30.8 L MCV 81.3 MCH 27.2 MCHC 33.4 RDW Std Deviation 51.0 H RDW Coeff of Tiburcio 17.3 H Plt Count 121 L MPV 10.7 H Immature Gran % (Auto) 0.2 Neut % (Auto) 77.2 Lymph % (Auto) 13.1 Madison % (Auto) 9.3 Eos % (Auto) 0.0 Baso % (Auto) 0.2 Immature Gran # (Auto) 0.01 Neut # (Auto) 4.17 Lymph # (Auto) 0.71 L [place] # (Auto) 0.50 Eos # (Auto) 0.00 Baso # (Auto) 0.01 APTT PTT Ratio Sodium Potassium Chloride Carbon Dioxide Anion Gap BUN Creatinine Est Cr Clr Drug Dosing Est GFR ( Amer) Est GFR (Non-Af Amer) BUN/Creatinine Ratio Glucose Osmolality Lactate Calcium Phosphorus Magnesium Total Bilirubin AST ALT Alkaline Phosphatase Total Creatine Kinase Troponin I Total Protein Albumin Globulin Albumin/Globulin Ratio Lipase TSH Free T4 Urine Color Urine Appearance Urine pH Ur Specific [place] Urine Protein Urine Glucose (UA) Urine Ketones Urine Blood Urine Nitrite Urine Bilirubin Urine Urobilinogen Ur Leukocyte Esterase Urine WBC (Auto) Urine RBC (Auto) U Hyaline Cast (Auto) U Epithel Cells (Auto) Urine Bacteria (Auto) Urine Osmolality 226 L Ur Random Sodium 27 11/07/19 11/07/19 11/07/19 05:47 05:47 11:50 WBC RBC Hgb Hct MCV MCH MCHC RDW Std Deviation RDW Coeff of Tiburcio Plt Count MPV Immature Gran % (Auto) Neut % (Auto) Lymph % (Auto) Madison % (Auto) Eos % (Auto) Baso % (Auto) Immature Gran # (Auto) Neut # (Auto) Lymph # (Auto) [place] # (Auto) Eos # (Auto) Baso # (Auto) APTT PTT Ratio Sodium 129 L 128 L Potassium 4.1 Chloride 92 L Carbon Dioxide 34 H Anion Gap 3.0 BUN 60 H Creatinine 1.28 H Est Cr Clr Drug Dosing 33.9 Est GFR ( Amer) 49.7 Est GFR (Non-Af Amer) 42.9 BUN/Creatinine Ratio 46.9 H Glucose 125 H Osmolality 296 Lactate Calcium 8.5 Phosphorus 3.3 Magnesium 2.4 Total Bilirubin AST ALT Alkaline Phosphatase Total Creatine Kinase Troponin I 0.023 Total Protein Albumin Globulin Albumin/Globulin Ratio Lipase TSH Free T4 Urine Color Urine Appearance Urine pH Ur Specific [place] Urine Protein Urine Glucose (UA) Urine Ketones Urine Blood Urine Nitrite Urine Bilirubin Urine Urobilinogen Ur Leukocyte Esterase Urine WBC (Auto) Urine RBC (Auto) U Hyaline Cast (Auto) U Epithel Cells (Auto) Urine Bacteria (Auto) Urine Osmolality Ur Random Sodium 11/07/19 11:50 WBC RBC Hgb 11.3 L Hct 33.7 L MCV MCH MCHC RDW Std Deviation RDW Coeff of Tiburcio Plt Count MPV Immature Gran % (Auto) Neut % (Auto) Lymph % (Auto) [place] % (Auto) Eos % (Auto) Baso % (Auto) Immature Gran # (Auto) Neut # (Auto) Lymph # (Auto) [place] # (Auto) Eos # (Auto) Baso # (Auto) APTT PTT Ratio Sodium Potassium Chloride Carbon Dioxide Anion Gap BUN Creatinine Est Cr Clr Drug Dosing Est GFR ( Amer) Est GFR (Non-Af Amer) BUN/Creatinine Ratio Glucose Osmolality Lactate Calcium Phosphorus Magnesium Total Bilirubin AST ALT Alkaline Phosphatase Total Creatine Kinase Troponin I Total Protein Albumin Globulin Albumin/Globulin Ratio Lipase TSH Free T4 Urine Color Urine Appearance Urine pH Ur Specific [place] Urine Protein Urine Glucose (UA) Urine Ketones Urine Blood Urine Nitrite Urine Bilirubin Urine Urobilinogen Ur Leukocyte Esterase Urine WBC (Auto) Urine RBC (Auto) U Hyaline Cast (Auto) U Epithel Cells (Auto) Urine Bacteria (Auto) Urine Osmolality Ur Random Sodium
[2019-11-07] MEDS: HYDROCODONE/ACETAMOPHEN 5/325MG TAB PO PRN ×2 (10:30→22:08)
[2019-11-07 12:02] LABS: Hematocrit (blood only) 33.7 % (37-47); Hemoglobin 11.3 g/dL (12.0-16.0)
[2019-11-07] MEDS: HEPARIN SOD 5,000 UNIT/0.5 ML VIAL SQ SCH ×3 (13:06→21:10)
--- NOTE | 2019-11-07 14:00 | Cardiology Consultation ---
Date of Consultation November 07, 2019 Assessment & Plan (1) Chest pain: Single episode that I believe represents her chronic stable angina. No significant ischemic changes on EKG No new wall motion abnormalities on echocardiogram. Given the clinical context of her postop blood loss and severe pain given her bypass surgery I do not believe this represents an acute ischemic event. No further testing is necessary at this time. Should any further episodes occur then we will likely start long-acting nitrates in the meantime she can still be given as needed sublingual nitroglycerin. (2) Acute blood loss anemia: (3) S/P vascular surgery: (4) Mitral regurgitation: Moderate to severe we will continue to follow clinically. History of Present Illness Reason for Consultation: Chest pain Requesting Physician: Dr. Goncalves Attending Physician: Elijah Park MD History of Present Illness It was my pleasure to see Mrs. Hinkle in consultation today November 07, 2019. She is a very pleasant 68-year-old woman that routinely follows with myself as an outpatient. She presented to [facility] on 11/02/2019 for planned right femoral endarterectomy and vein patch graft with right femoral to posterior tibial artery in situ bypass. Patient underwent surgery successfully on this and was recovering well. Unfortunately on the evening of 11/06/2019 she had an episode of chest discomfort. She states that she was sitting on the commode attempting have a bowel movement when she had a normal anginal equivalent. She described as a substernal pressure and sensation that was relieved with 1 sublingual nitroglycerin. She has been having a great deal of pain in the right lower extremity since bypass and did have a significant bout of pain ambulating to the commode at that time. She is been chest di scomfort free since and states that again this was her usual episode of angina. Otherwise she denies any shortness of breath, palpitations, lightheadedness, dizziness or syncope. MEDICAL ILLNESSES: 1. Coronary artery disease status post PCI to unknown vessels. 2. Mild ischemic cardiomyopathy, EF 40%-45%. 3. Moderate mitral regurgitation. 4. Moderate aortic regurgitation. 5. Peripheral artery disease with left BKA and bilateral carotid endarterectomies. 6. Ongoing tobacco abuse. 7. Dyslipidemia. 8. Hypertension. 9. COPD. 10. History of hypoxemia, untreated. 11. History of obstructive sleep apnea, untreated. 12. History of prior heavy alcohol use/abuse. 13. Cirrhosis of the liver. Allergies Allergy/AdvReac Type Severity Reaction Status Date / Time Penicillins Allergy Unknown hives/upset Verified 11/02/19 08:28 stomach/diarrhea Iodinated Contrast Media AdvReac Unknown severe Verified 11/02/19 08:28 [Iodinated Contrast- Oral vomiting and IV Dye] oxycodone [From Percocet] AdvReac Unknown vomiting Verified 10/26/19 10:44 Home Medications Home Medications Medication Instructions Recorded Confirmed Type aspirin 81 mg tablet,delayed 81 mg PO QAM 07/22/18 11/02/19 History release citalopram 40 mg tablet 40 mg PO HS 07/22/18 11/02/19 History gabapentin 800 mg tablet 800 mg PO TID tab 07/22/18 11/02/19 History omega 3-[id number]-ceq-fish oil 1,000 mg 1 cap PO DAILY cap 07/22/18 11/02/19 History (120 mg-180 mg) capsule Symbicort 2 puff INHALATION BID 03/01/19 11/02/19 History atorvastatin 80 mg PO HS 03/01/19 11/02/19 History ferrous gluconate 324 mg PO TID 03/01/19 11/02/19 History folic acid 1 mg PO QAM 03/01/19 11/02/19 History ipratropium-albuterol 3 ml INHALATION Q6H PRN 03/01/19 11/02/19 History metoprolol succinate 12.5 mg PO QPM 03/01/19 11/02/19 History multivitamin 1 tab PO QAM 03/01/19 11/02/19 History omeprazole 40 mg PO QAM 03/01/19 11/02/19 History vitamin B complex 1 tab PO QAM 03/01/19 11/02/19 History furosemide [Lasix] 40 mg PO BID 04/05/19 11/02/19 History magnesium oxide 400 mg PO QAM 04/05/19 11/02/19 History nitroglycerin 0.4 mg SUBLINGUAL UD PRN 04/05/19 11/02/19 History tramadol 50 mg PO BID PRN 07/15/19 11/02/19 History tiotropium bromide 18 mcg capsule 1 cap INH HS 09/02/19 11/02/19 History with inhalation device spironolactone 100 mg PO QAM 09/13/19 11/02/19 History clindamycin HCl 300 mg capsule 300 mg PO TID #90 cap 10/07/19 11/02/19 Rx ibuprofen 600 mg PO HS PRN 10/25/19 11/02/19 History prednisone 50 mg PO DAILY 11/02/19 11/02/19 History Patient History Medical History Acid reflux CAD (coronary artery disease) (Chronic) 2004 -PCI to unknown vessel Chronic combined systolic and diastolic CHF (congestive heart failure) (Chronic) EF 40 to 44%, grade 2 diastolic dysfunction Cirrhosis of liver "UNDETERMINED ORIGIN" CKD (chronic kidney disease), stage III (Chronic) pt denies having any problems with kidneys. COPD (chronic obstructive pulmonary disease) (Chronic) Diabetic peripheral neuropathy (Chronic) History of anxiety History of depression History of endometriosis "STAGE 1 GRADE 1" History of sleep apnea HX CPAP SARANYA (iron deficiency anemia) (Chronic) Impaired fasting glucose A1C 6/% 05/2019 Ischemic cardiomyopathy (Chronic) EF 40-44% PAD (peripheral artery disease) (Chronic) Snores Valvular heart disease (Chronic) mod-severe MR, mod TR Surgical History History of anesthesia reaction PT REPORTS URINARY RETENTION POST OP, USUALLY REQUIRING STRAIGHT CATH History of bilateral carotid endarterectomy (Chronic) History of cardiac cath 2004 ..TOLD HAD 2 OH'S - STENT X1 History of cholecystectomy (Chronic) History of colonoscopy History of hysterectomy (Chronic) supracervical History of left below knee amputation (Chronic) History of lumbar discectomy S/P angioplasty UNABLE TO PERFORM 10/22/19 - REASON FOR UPCOMING SURGERY Family History Father Family history of diabetes mellitus Family history of COPD (chronic obstructive pulmonary disease) Sister Breast cancer Social History Preferred Language: Moroccan Communication Ability: Effective Visual Impairment: Limited Hearing Ability: Normal Lead Software Engineer Required: No Beliefs That Will Affect Care: None marital status: Current Living Situation: Spouse current occupational status: disabled Other Information That Helps Us Care for You: Yes (RECEIVES HOME HEALTH CARE ([facility])) Feels Safe at Home: Yes Smoking Status: Current every day smoker Tobacco Type: cigarettes ; Cigarettes Per Day: < 5 ; Do You Dip or Chew Tobacco: No ; Second Hand Exposure: Yes ; Tobacco Cessation Education Requested by Patient: No Hx Alcohol Use: No Hx Substance Use: No Review of Systems Review of Systems: All systems reviewed & are unremarkable except as noted in HPI & below Physical Exam Physical Exam: General: Awake, alert and oriented x 3. No acute distress. HEENT: Normocephalic, atraumatic. Pupils equal, round and reactive to light and accommodation. Extraocular muscles are intact. Anicteric sclera. Moist mucous membranes. Neck: No JVD. No bruit. Cardiovascular: Regular. Positive S-4. Normal S-1 and S-2. No S-3. 3/6 holosystolic ejection murmur, left sternal border, mid-clavicular line with radiation to the axilla. No rubs. Pulmonary: Clear to auscultation bilaterally. No rales, rhonchi, or wheezing. Abdomen: Bowel sounds x 4, soft. No rebound, guarding or tenderness. No organomegaly. Extremities: No clubbing, cyanosis or edema. +2 pedal pulses bilaterally. Skin: Warm and dry. Results & Data Vital Signs (Past 12 Hours) Vital Signs Temp Pulse Pulse Resp BP BP Pulse Ox 11/07/19 11:47 62 11/07/19 11:23 37.1 C 56 L 22 117/45 L 98 11/07/19 08:00 99 H 11/07/19 07:41 37.2 C 54 L 19 121/42 L 99 11/07/19 02:43 59 L
[2019-11-07] MEDS: METOPROLOL SUCC 25MG EXT REL TAB PO SCH (21:04)
[2019-11-07] MEDS: TIOTROPIUM BROMIDE 5 PUFF/90 MCG INH INH SCH (21:09)
[2019-11-08] MEDS: DAPTOmycin 200 MG in SYRINGE 0 ML IV SCH (03:14)
[2019-11-08] MEDS: HEPARIN SOD 5,000 UNIT/0.5 ML VIAL SQ SCH ×3 (06:01→20:41)
[2019-11-08 06:16] LABS: Calcium 8.9 mg/dl (8.5-10.1); Est GFR (African American) 69.6; Potassium 4.6 mmol/L (3.5-5.1)
[2019-11-08] MEDS: MULTIVITAMIN TAB PO SCH (08:00)
[2019-11-08] MEDS: OMEGA-3 (PURIFIED FISH OIL) 1 GM CAP PO SCH (08:00)
[2019-11-08] MEDS: MAGNESIUM OXIDE 400 MG TAB PO SCH (08:00)
[2019-11-08] MEDS: FOLIC ACID 1 MG TAB PO SCH (08:00)
[2019-11-08] MEDS: GABAPENTIN 100 MG CAP PO SCH ×3 (08:00→20:42)
[2019-11-08] MEDS: PANTOprazole 40 MG TAB PO SCH (08:00)
[2019-11-08] MEDS: FERROUS GLUCONATE 324 MG TAB PO SCH ×3 (08:00→20:37)
[2019-11-08] MEDS: NICOTINE 7 MG/24 HR TDSY TD SCH (08:01)
[2019-11-08] MEDS: BUDESONIDE/FORMOTEROL FUMARATE 160/4.5 60 PUFFS/INHALER INH SCH ×2 (08:01→20:43)
--- NOTE | 2019-11-08 08:12 | Surgery Progress Note ---
Date of Service November 08, 2019 Assessment & Plan (1) S/P vascular surgery: Doing well post op. No changes in the lower extremities. Can be d/c'd today from vascular standpoint. (2) Chest pain: No further chest pain. Subjective No further chest discomfort. Denies any changes with her lower extremity. Physical Exam Constitutional: WD/WN, vitals as above Cardiovascular: Rate/Rhythm: regular rate and regular rhythm Vessels: post erior tibial pulses present (palp on right) and dorsalis pedis pulses present (good doppler on right) Extremities: normal capillary refill; no edema Skin: + rash (left inner thigh), + ecchymosis (present in right groin and posterior thigh) and + incision (all incisions are dry and clean.) Psychiatric: Orientation: alert and oriented x 3 Results & Data Vital Signs (Past 12 Hours) Vital Signs Temp Pulse Pulse Resp BP Pulse Ox 11/08/19 07:37 37.1 C 64 18 107/41 L 92 11/08/19 04:30 36.9 C 52 L 18 99/45 L 96 11/07/19 23:26 37.1 C 58 L 19 104/46 L 98 11/07/19 23:07 64
--- NOTE | 2019-11-08 09:28 | Infectious Disease Consult ---
Date of Consultation November 08, 2019 Assessment & Plan (1) Traumatic wound: will stop dapto, no clinical evidence of infection. would suggest continued clinda x 21 days post op. will continue to follow in wound center. ok for d/c from ID standpoint. History of Present Illness Attending Physician: Elijah Park MD pt admitted for vascular surgery, last seen by ID in wound center on 10/26 - clinda contined preop although significantly improved. had surgery on 11/02, went well walter intact, min post op pain. had fever on 11/06 38.2, isolated, blood cultures done, negative, dapto started and ID consulted for abx approval. she is feeling much better and anxious to be d/c. she has min pain in leg, no bleeding no drainage. no f/c. no abd pain, no n/v/d. tolerating abx. doppler done yesterday, hematoma noted. Allergies Allergy/AdvReac Type Severity Reaction Status Date / Time Penicillins Allergy Unknown hives/upset Verified 11/02/19 08:28 stomach/diarrhea Iodinated Contrast Media AdvReac Unknown severe Verified 11/02/19 08:28 [Iodinated Contrast- Oral vomiting and IV Dye] oxycodone [From Percocet] AdvReac Unknown vomiting Verified 10/26/19 10:44 Home Medications Home Medications Medication Instructions Recorded Confirmed Type aspirin 81 mg tablet,delayed 81 mg PO QAM 07/22/18 11/02/19 History release citalopram 40 mg tablet 40 mg PO HS 07/22/18 11/02/19 History gabapentin 800 mg tablet 800 mg PO TID tab 07/22/18 11/02/19 History omega 1-eyb-dtl-fish oil 1,000 mg 1 cap PO DAILY cap 07/22/18 11/02/19 History (120 mg-180 mg) capsule Symbicort 2 puff INHALATION BID 03/01/19 11/02/19 History atorvastatin 80 mg PO HS 03/01/19 11/02/19 History ferrous gluconate 324 mg PO TID 03/01/19 11/02/19 History folic acid 1 mg PO QAM 03/01/19 11/02/19 History ipratropium-albuterol 3 ml INHALATION Q6H PRN 03/01/19 11/02/19 History metoprolol succinate 12.5 mg PO QPM 03/01/19 11/02/19 History multivitamin 1 tab PO QAM 03/01/19 11/02/19 History omeprazole 40 mg PO QAM 03/01/19 11/02/19 History vitamin B complex 1 tab PO QAM 03/01/19 11/02/19 History furosemide [Lasix] 40 mg PO BID 04/05/19 11/02/19 History magnesium oxide 400 mg PO QAM 04/05/19 11/02/19 History nitroglycerin 0.4 mg SUBLINGUAL UD PRN 04/05/19 11/02/19 History tramadol 50 mg PO BID PRN 07/15/19 11/02/19 History tiotropium bromide 18 mcg capsule 1 cap INH HS 09/02/19 11/02/19 History with inhalation device spironolactone 100 mg PO QAM 09/13/19 11/02/19 History clindamycin HCl 300 mg capsule 300 mg PO TID #90 cap 10/07/19 11/02/19 Rx ibuprofen 600 mg PO HS PRN 10/25/19 11/02/19 History prednisone 50 mg PO DAILY 11/02/19 11/02/19 History Patient History Medical History Acid reflux CAD (coronary artery disease) (Chronic) 2004 -PCI to unknown vessel Chronic combined systolic and diastolic CHF (congestive heart failure) (Chronic) EF 40 to 44%, grade 2 diastolic dysfunction Cirrhosis of liver "UNDETERMINED ORIGIN" CKD (chronic kidney disease), stage III (Chronic) pt denies having any problems with kidneys. COPD (chronic obstructive pulmonary disease) (Chronic) Diabetic peripheral neuropathy (Chronic) History of anxiety History of depression History of endometriosis "STAGE 1 GRADE 1" History of sleep apnea HX CPAP SARANYA (iron deficiency anemia) (Chronic) Impaired fasting glucose A1C 6/1% 05/2019 Ischemic cardiomyopathy (Chronic) EF 40-44% PAD (peripheral artery disease) (Chronic) Snores Valvular heart disease (Chronic) mod-severe MR, mod TR Surgical History History of anesthesia reaction PT REPORTS URINARY RETENTION POST OP, USUALLY REQUIRING STRAIGHT CATH History of bilateral carotid endarterectomy (Chronic) History of cardiac cath 2004 ..TOLD HAD 2 WY'S - STENT X1 History of cholecystectomy (Chronic) History of colonoscopy History of hysterectomy (Chronic) supracervical History of left below knee amputation (Chronic) History of lumbar discectomy S/P angioplasty UNABLE TO PERFORM 10/22/19 - REASON FOR UPCOMING SURGERY Family History Father Family history of diabetes mellitus Family history of COPD (chronic obstructive pulmonary disease) Sister Breast cancer Social History Preferred Language: Tunisian Communication Ability: Effective Visual Impairment: Limited Hearing Ability: Normal Field Appraiser Required: No Beliefs That Will Affect Care: None marital status: Current Living Situation: Spouse current occupational status: disabled Other Information That Helps Us Care for You: Yes (RECEIVES HOME HEALTH CARE ([facility])) Feels Safe at Home: Yes Smoking Status: Current every day smoker Tobacco Type: cigarettes ; Cigarettes Per Day: < 5 ; Do You Dip or Chew Tobacco: No ; Second Hand Exposure: Yes ; Tobacco Cessation Education Requested by Patient: No Hx Alcohol Use: No Hx Substance Use: No Review of Systems Review of Systems: All systems reviewed & are unremarkable except as noted in HPI & below Physical Exam Constitutional: WD/WN, vitals as above Eyes: PERRL, conjunctivae normal, anicteric sclerae ENMT: external ear and nose normal, oropharynx normal Neck: normal visual inspection Respiratory: normal respiratory effort, lungs clear to auscultation Cardiovascular: RRR, no murmur, no edema Gastrointestinal (Abdomen): normal bowel sounds, soft, nontender, no hepatosplenomegaly Musculoskeletal: no cyanosis or clubbing, extremities motor strength 5/5 Skin: no rashes, warm and dry + wound (dressing intact no drainage, no bleeding no warmth) Psychiatric: A+Ox3, euthymic affect Results & Data Vital Signs (Past 12 Hours) Vital Signs Temp Pulse Pulse Resp BP Pulse Ox 11/08/19 07:37 37.1 C 64 18 107/41 L 92 11/08/19 04:30 36.9 C 52 L 18 99/45 L 96 11/07/19 23:26 37.1 C 58 L 19 104/46 L 98 11/07/19 23:07 64 Laboratory Results Microbiology 11/07/19 01:04 Blood Aerobic Blood Culture - Preliminary No growth in Aerobic bottle after 24 hours. 11/07/19 01:04 Blood Anaerobic Blood Culture - Preliminary No growth in Anaerobic bottle after 24 hours. 11/07/19 01:00 Blood Aerobic Blood Culture - Preliminary No growth in Aerobic bottle after 24 hours. 11/07/19 01:00 Blood Anaerobic Blood Culture - Preliminary No growth in Anaerobic bottle after 24 hours. PG Care Time/CCT Total # of Minutes Spent Total Time Spent with Patient: Total time spent is greater than 50% in coordination of care (as documented) at patient's floor/unit and/or counseling patient:
--- NOTE | 2019-11-08 10:24 | Cardiology Progress Note ---
Date of Service November 08, 2019 Assessment & Plan (1) Chest pain: Single episode that I believe represents her chronic stable angina. No significant ischemic changes on EKG No new wall motion abnormalities on echocardiogram. Given the clinical context of her postop blood loss and severe pain given her bypass surgery I do not believe this represents an acute ischemic event. No further testing is necessary at this time. Should any further episodes occur then we will likely start long-acting nitrates in the meantime she can still be given as needed sublingual nitroglycerin. Okay to discharge patient to home from a cardiac standpoint. She is already scheduled to see me on December 10 I recommend keeping this appointment. (2) Acute blood loss anemia: (3) S/P vascular surgery: (4) Mitral regurgitation: Moderate to severe we will continue to follow clinically. Subjective Patient seen and examined, states that she is doing well with some continued right lower extremity discomfort. Has not had any recurrences of chest discomfort and denies any shortness of breath, palpitations, lightheadedness, dizziness or syncope. Telemetry reviewed: Normal sinus rhythm without any arrhythmias. Review of Systems Review of Systems: All systems reviewed & are unremarkable except as noted in HPI & below Physical Exam Physical Exam: General: Awake, alert and oriented x 3. No acute distress. HEENT: Normocephalic, atraumatic. Pupils equal, round and reactive to light and accommodation. Extraocular muscles are intact. Anicteric sclera. Moist mucous membranes. Neck: No JVD. No bruit. Cardiovascular: Regular. Positive S-4. Normal S-1 and S-2. No S-3. 3/6 holosystolic ejection murmur, left sternal border, mid-clavicular line with radiation to the axilla. No rubs. Pulmonary: Clear to auscultation bilaterally. No rales, rhonchi, or wheezing. Abdomen: Bowel sounds x 4, soft. No rebound, guarding or tenderness. No organomegaly. Extremities: No clubbing, cyanosis or edema. +2 pedal pulses bilaterally. Skin: Warm and dry. Results & Data Vital Signs (Past 12 Hours) Vital Signs Temp Pulse Pulse Resp BP Pulse Ox 11/08/19 07:37 37.1 C 64 18 107/41 L 92 11/08/19 04:30 36.9 C 52 L 18 99/45 L 96 11/07/19 23:26 37.1 C 58 L 19 104/46 L 98 11/07/19 23:07 64
[2019-11-08] MEDS: HYDROCODONE/ACETAMOPHEN 5/325MG TAB PO PRN ×3 (11:43→22:41)
--- NOTE | 2019-11-08 18:16 | Hospitalist Progress Note ---
Date of Service November 08, 2019 Assessment & Plan (1) Chest pain: 62 female with history of coronary disease, ischemic cardiomyopathy EF 40%, peripheral artery disease, COPD, hypertension Who is status post femoropopliteal bypass, presented with chest pain last evening. CHEST PAIN, POSSIBLE UNSTABLE ANGINA CAD, STATUS POST PLACEMENT Relieved by 1 dose of nitroglycerin sublingual Troponins x3 EKG no signs of acute ischemia or infarct Hull Drafter consulted-no further interventions at this point Aspirin held secondary to right groin hematoma Continue metoprolol, atorvastatin STATUS POST RIGHT LOWER EXTREMITY FEMOROPOPLITEAL BYPASS, RECURRENT CELLULITIS Afebrile Blood cultures negative ID consulted, leg infection felt unlikely Recommend to continue endomysial x3 weeks postop and follow-up with wound care center RIGHT GROIN HEMATOMA Right lower extremity ultrasound:4.7 x 2.8 x 0.9 cm right groin fluid collection which favors a small hematoma. Hemoglobin [address] Park ACUTE KIDNEY INJURY, CKD STAGE III Given IV NSS crea back to baseline resume diuretics ANEMIA, POSSIBLE ACUTE BLOOD LOSS Hemoglobin baseline 13, now 11.3 Aspirin on hold secondary to likely hematoma Monitor HYPONATREMIA Resolved with IV NSS Monitor ISCHEMIC CARDIOMYOPATHY EF 40 TO 45% VALVULAR HEART DISEASE, MODERATE AORTIC STENOSIS, MODERATE TO SEVERE MITRAL REGURGITATION resume Lasix and spironolactone Monitor HISTORY OF CIRRHOSIS compensated COPD No exacerbation Thank you for this consultation. We will follow the patient with you during their hospital stay. You can reach a member of the [facility]ist Team 09/06 via pager @ [phone]. Subjective ff up for chest pain Seen resting in bed, comfortable, in good spirits No recurrence of chest pain Denies leg discomfort No other symptoms Review of Systems Review of Systems: All systems reviewed & are unremarkable except as noted in HPI & below Physical Exam Physical Exam: General- oriented x 3, not in distress, speaks in sentences with no effort or accessory muscle use Eyes- anicteric Neck- no JVD Lungs- clear breath sounds no crackles, no wheezing, bilaterally Heart- normal rate, regular rhythm; no murmurs Abdomen- normal bowel sounds, nondistended, soft, nontender Extremities- Right lower leg: Positive edema, erythema, incision site without discharge No pretibial edema, no calf tenderness Neuro- alert, oriented x 3; no gross focal neurologic deficits Skin- warm & dry Results & Data Vital Signs (Past 12 Hours) Vital Signs Temp Pulse Resp BP Pulse Ox 11/08/19 16:00 63 11/08/19 15:24 37.3 C 63 20 124/50 L 95 11/08/19 10:50 36.7 C 58 L 19 126/42 L 97 11/08/19 07:37 37.1 C 64 18 107/41 L 92
[2019-11-08] MEDS: METOPROLOL SUCC 25MG EXT REL TAB PO SCH (20:37)
[2019-11-08] MEDS: TIOTROPIUM BROMIDE 5 PUFF/90 MCG INH INH SCH (20:44)
--- NOTE | 2019-11-08 23:32 | Communication Note ---
Date of Service: November 08, 2019 Patient transferred to [facility] to Dr Muñoz. Patient waiting for a bed at [facility] I will be back in town on . While i am away you can reach me on my beeper [phone] Thank you
--- NOTE | 2019-11-09 | Hospitalist Progress Note ---
Date of Service November 08, 2019 Subjective Spoke with . As Dr. Park [facility] going [facility] Yael Bryan.We are already following as consults.Thank you. Results & Data Vital Signs (Past 12 Hours) Vital Signs Temp Pulse Resp BP BP Pulse Ox 11/08/19 22:53 36.9 C 55 L 16 126/65 97 11/08/19 19:08 36.7 C 55 L 110/62 11/08/19 16:00 63 11/08/19 15:24 37.3 C 63 20 124/50 L 95
[2019-11-09] MEDS: HEPARIN SOD 5,000 UNIT/0.5 ML VIAL SQ SCH ×2 (04:12→13:14)
[2019-11-09] MEDS: CLINDAMYCIN HCL 150 MG CAP PO SCH ×2 (05:32→13:14)
[2019-11-09] MEDS: HYDROCODONE/ACETAMOPHEN 5/325MG TAB PO PRN ×2 (06:04→15:01)
[2019-11-09 06:19] LABS: Basophils # (auto) 0.01 K/uL (0-0.2); Basophils % (auto) 0.2 %; Hemoglobin 10.3 g/dL (12.0-16.0); Immature Granulocytes # (auto) 0.01 K/uL (0.00-0.02); Immature Granulocytes % (auto) 0.2 %; Lymphocytes # (auto) 0.79 K/uL (1.2-3.4); Mean Corpuscular Hgb Conc 32.2 g/dL (32-36); Mean Corpuscular Volume 83.8 fL (80-100); Mean Platelet Volume 9.8 fL (7.4-10.4); Monocytes % (auto) 9.6 %; Neutrophils # (auto) 2.94 K/uL (1.4-6.5); Platelet Count 166 K/uL (130-400); RDW Coefficient of Variation 17.8 % (11.5-14.5); RDW Standard Deviation 53.5 fL (36.4-46.3); Red Blood Count 3.82 M/uL (4.2-5.4); White Blood Count 4.15 K/uL (4.8-10.8)
[2019-11-09 06:55] LABS: BUN Creatinine Ratio 52.5 (10-20); Calcium 9.2 mg/dl (8.5-10.1); Creatinine Clr Calc Pharmacy 45.9 ml/min; Est GFR (African American) 71.3; Est GFR (Non-African American) 61.5; Potassium 4.9 mmol/L (3.5-5.1)
[2019-11-09] MEDS: GABAPENTIN 100 MG CAP PO SCH ×2 (08:47→13:14)
[2019-11-09] MEDS: OMEGA-3 (PURIFIED FISH OIL) 1 GM CAP PO SCH (08:47)
[2019-11-09] MEDS: BUDESONIDE/FORMOTEROL FUMARATE 160/4.5 60 PUFFS/INHALER INH SCH (08:47)
[2019-11-09] MEDS: PANTOprazole 40 MG TAB PO SCH (08:47)
[2019-11-09] MEDS: MULTIVITAMIN TAB PO SCH (08:48)
[2019-11-09] MEDS: NICOTINE 7 MG/24 HR TDSY TD SCH (08:48)
[2019-11-09] MEDS: FOLIC ACID 1 MG TAB PO SCH (08:48)
[2019-11-09] MEDS: MAGNESIUM OXIDE 400 MG TAB PO SCH (08:48)
[2019-11-09] MEDS: FERROUS GLUCONATE 324 MG TAB PO SCH ×2 (08:48→13:14)
[2019-11-09] MEDS: SPIRONOLACTONE 100 MG TAB PO SCH (09:14)
[2019-11-09] MEDS: FUROSEMIDE 40 MG TAB PO SCH (09:14)
--- NOTE | 2019-11-09 14:22 | Discharge Summary ---
Date of Service November 09, 2019 Admission HPI Per Admitting Provider Chief Complaint: Non healing wound right great toe Primary Care Provider: Girish Sales DO Ms. Hinkle is a 68-year-old female with a history of peripheral arterial disease, who underwent duplex ultrasound when she was hospitalized recently, which showed a right mid SFA occlusion with patent 3 vessel runoff. She was seen by Vascular Surgery in consultation at that time. Her wound has been present since about August. She was recently admitted for cellulitis today and the wound seems to be improving. She has been followed by the [facility]. However, she does have some purplish discoloration of her right great toe. She does have neuropathy in the foot and does not feel any pain. She is concerned about the discoloration as this is how things started with her left lower extremity, which ultimately ended up in an amputation. Past Med/Surg History Medical History CAD (coronary artery disease) (Chronic) 2004 -PCI to unknown vessel Charcot foot due to diabetes mellitus (Chronic) Chronic combined systolic and diastolic CHF (congestive heart failure) (Chronic) EF 40 to 44%, grade 2 diastolic dysfunction CKD (chronic kidney disease), stage III (Chronic) pt denies having any problems with kidneys. COPD (chronic obstructive pulmonary disease) (Chronic) Diabetic peripheral neuropathy (Chronic) DM type 2 (diabetes mellitus, type 2) (Chronic) History of left below knee amputation (Chronic) SARANYA (iron deficiency anemia) (Chronic) Ischemic cardiomyopathy (Chronic) PAD (peripheral artery disease) (Chronic) Valvular heart disease (Chronic) mod-severe MR, mod TR Surgical History History of bilateral carotid endarterectomy (Chronic) History of cholecystectomy (Chronic) History of hysterectomy (Chronic) supracervical Family History Father Family history of diabetes mellitus Sister Breast cancer Social History Preferred Language: Occitan Communication Ability: Effective Visual Impairment: Limited Hearing Ability: Normal Net Wpf Developer Required: No Beliefs That Will Affect Care: None marital status: Current Living Situation: Spouse current occupational status: disabled Feels Safe at Home: Yes Smoking Status: Current every day smoker Tobacco Type: cigarettes ; Cigarettes Per Day: 5 ; Second Hand Exposure: Yes ; Hx Alcohol Use: No Hx Substance Use: No Signed By: <Electronically signed by Elijah Park MD> 10/22/1923 Created: 10/22/19516 The status of this report is Signed. Draft = Not yet reviewed or approved by Medical Physician. Signed = Reviewed and approved by Medical Physician. Admission Exam Per Admitting Provider Physical Exam: Constitutional: well developed, well nourished, well groomed, cooperative and comfortable; no acute distress, not in distress and not diaphoretic Eyes: PERRL and EOM intact bilaterally ENMT: Nose: no nasal discharge Neck: trachea midline Well-healed bilateral carotid endarterectomy incisions. Respiratory: normal respiratory effort, lungs clear to auscultation no respiratory distress and no cough Cardiovascular: Rate/Rhythm: regular rate Musculoskeletal: Extremities: + foot abnormality (Charcot foot deformity) Right Patient has a amputation on the left side below the knee with a small 2 mm wound at the base of the stump. The right lower extremity has a small 2 mm wound at the tip of the right toe with no erythema or discharge or drainage surrounding it. Patient has a small scab in the medial aspect of her right calf. Right lower extremity is warm with motor and intact patient has a history of neuropathy and has no sensory feeling in the right leg. Patient has palpable femoral pulses bilaterally. Bilateral groins appeared clean with no rash. Skin: no rashes, warm and dry Neurologic: CN's II-XI intact bilaterally Motor/Sensory: + sensory deficit (Peripheral neuropathy in the right lower extremity.); no tremor Psychiatric: Orientation: alert, oriented x 3 and cooperative Apperance: appropriately groomed Eye Contact: good eye contact Speech: normal rate/rhythm/volume of speech Principal Diagnosis Pre-Op Diagnosis: Midsuperficial femoral to distal popliteal artery occlusion with occlusion of anterior tibial and peroneal arteries Post-Op Diagnosis: Midsuperficial femoral to distal popliteal artery occlusion with occlusion of anterior tibial and peroneal arteries Operation Date: 11/02/19 09:55 Actual Procedures p Right common femoral enarterectomy veinpatch graft, Right Femoral to Posterior Tibial Artery Insitu Bypass(Right) - Elijah Park MD Discharge Exam General- oriented x 3, not in distress, speaks in sentences with no effort or accessory muscle use Eyes- anicteric Neck- no JVD Lungs- clear breath sounds bilaterally, no rales/wheezes Heart- normal rate, regular rhythm; no murmurs Abdomen- normal bowel sounds, nondistended, soft, nontender Right Groin- surgical wound: walter in place, no discharge/bleeding, minimal swelling- improved, minimal tenderness, no erythema/warmth, no signs of infection Extremities- Right Lower Leg- surgical wound: walter in place, edema with mild-moderate erythema and tenderness, no discharge Neuro- alert, oriented x 3; no gross focal neurologic deficits Skin- warm & dry Discharge Data Allergies Allergy/AdvReac Type Severity Reaction Status Date / Time Penicillins Allergy Unknown hives/upset Verified 11/02/19 08:28 stomach/diarrhea Iodinated Contrast Media AdvReac Unknown severe Verified 11/02/19 08:28 [Iodinated Contrast- Oral vomiting and IV Dye] oxycodone [From Percocet] AdvReac Unknown vomiting Verified 10/26/19 10:44 Consultations 11/03/19 08:00 Consult Case Management - Discharge Planning Routine 11/07/19 09:41 Consult Cardiology Routine 11/07/19 11:17 Consult Infectious Diseases Routine 11/09/19 07:56 Consult Hospitalist Routine Procedures Performed Operation Date: 11/02/19 09:55 Actual Procedures p Right common femoral enarterectomy veinpatch graft, Right Femoral to Posterior Tibial Artery Insitu Bypass(Right) - Elijah Park MD Ordered Studies 11/07/19 01:19 US venous doppler LE RT Urgent RIGHT LOWER EXTREMITY VENOUS DOPPLER CLINICAL HISTORY: Right lower extremity pain and swelling. Recent bypass. COMPARISON STUDY: Right lower extremity venous Doppler ultrasound July 22, 2018. TECHNIQUE: Sonography of the deep venous system of the right lower extremity was performed. Compression and augmentation were evaluated. FINDINGS: Evaluation of the right groin and medial calf was suboptimal due to walter. Right greater saphenous vein was not visualized. The right common femoral, superficial femoral and popliteal veins were compressible. Augmentation was normal. Flow was shown within the deep calf vessels. A few mildly enlarged right inguinal lymph nodes are probably benign. A 4.7 x 2.8 x 0.9 cm hypoechoic focus within the right groin favors a small hematoma. IMPRESSION: 1. No evidence of deep venous thrombus within the right lower extremity although right groin and medial right calf suboptimally assessed due to walter. 2. 4.7 x 2.8 x 0.9 cm right groin fluid collection which favors a small hematoma. 3. Several mildly enlarged right inguinal lymph nodes which are probably benign. Hospital Course (1) Chest pain: 62 female with history of coronary disease, ischemic cardiomyopathy EF 40%, peripheral artery disease, COPD, hypertension Who is status post femoropopliteal bypass, presented with chest pain last evening. MIDSUPERFICIAL FEMORAL TO DISTAL POPLITEAL ARTERY OCCLUSION S/P Right common femoral enarterectomy veinpatch graft, Right Femoral to Posterior Tibial Artery Insitu Bypass(Right) - Elijah Park MD Pre-Op Diagnosis: Midsuperficial femoral to distal popliteal artery occlusion with occlusion of anterior tibial and peroneal arteries Post-Op Diagnosis: Midsuperficial femoral to distal popliteal artery occlusion with occlusion of anterior tibial and peroneal arteries Operation Date: 11/02/19 09:55 p Right common femoral enarterectomy veinpatch graft, Right Femoral to Posterior Tibial Artery Insitu Bypass(Right) - Elijah Park MD per Dr. Park: "Doing well post op. No changes in the lower extremities. Can be d/c'd today from vascular standpoint." Afebrile Blood cultures negative ID consulted- Dr. Schroeder, leg infection felt unlikely Recommend to continue endomysial x3 weeks postop and follow-up with wound care center discharge instructions: 1. Keep RLE wounds clean and dry, change dry dressing to groin daily to prevent maceration. Cover other wounds with dry dressings ONLY IF drainage noted. 2. Increase activity as tolerated. WBAT RLE 3. May shower and dry wounds gently. 4. Needs follow up with wound clinic, for appt. 5. Needs follow up with Dr Park or Prabha Kelly PA-C, in 2-3 weeks for staple removal Monitor right inguinal/thigh hematoma. Repeat basic metabolic profile in 2-3 days. CHEST PAIN, POSSIBLE UNSTABLE ANGINA CAD, STATUS POST PLACEMENT Relieved by 1 dose of nitroglycerin sublingual Troponins x3 EKG no signs of acute ischemia or infarct Saddle Lining Stitcher consulted-no further interventions at this point per Dr. Walters: " Single episode that I believe represents her chronic stable angina. No significant ischemic changes on EKG No new wall motion abnormalities on echocardiogram. Given the clinical context of her postop blood loss and severe pain given her bypass surgery I do not believe this represents an acute ischemic event. No further testing is necessary at this time. Should any further episodes occur then we will likely start long-acting nitrates in the meantime she can still be given as needed sublingual nitroglycerin." Continue metoprolol, atorvastatin, asa ff up with [facility] acid splicer as scheduled- December 10 RIGHT GROIN HEMATOMA Right lower extremity ultrasound:4.7 x 2.8 x 0.9 cm right groin fluid collection which favors a small hematoma. Hemoglobin 10-11 monitor ACUTE KIDNEY INJURY, CKD STAGE III Given IV NSS crea back to baseline resume diuretics, monitor BMP closely ANEMIA, POSSIBLE ACUTE BLOOD LOSS Hemoglobin baseline 13, now 10-11 monitor HYPONATREMIA Resolved with IV NSS Monitor ISCHEMIC CARDIOMYOPATHY EF 40 TO 45% VALVULAR HEART DISEASE, MODERATE AORTIC STENOSIS, MODERATE TO SEVERE MITRAL REGURGITATION resume Lasix and spironolactone Monitor HISTORY OF CIRRHOSIS compensated COPD No exacerbation Ff up with PCP in 1 week Needs follow up with wound clinic in 1 week, for appt. Needs follow up with Dr Park or Prabha Kelly PA-C, in 2-3 weeks for staple removal Total Time Total Time Spent Total Time Spent (In Minutes): 45 minutes Discharge Plan Discharge Items Patient Disposition: Transfer Inpatient Rehab Fac Reason For Visit: Atherosclerosis of [place] Arteries of the Extremit Discharge Diagnosis: 1. s/p RLE femoral to posterior tibial artery in situ bypass 2. RLE PAD with nonhealing wound Condition on Discharge: Good Activity: Per Instructions section Non-emergency contact: Primary Care Provider and Surgeon Call non-emergency contact if: you have any medication questions, your pain is concerning for you, your temperature is above 101, your wound has increased redness and your wound has increased drainage Follow-up/Referrals: Prabha Kelly PA-C [Physician Clinical Systems Analyst] - (Pt to follow up with Dr Park or Prabha Kelly PA-C, in 2 weeks for staple removal. Call [phone] for appt ) Chadd Dudley MD [Primary Care Provider] - Diet: Heart Healthy Addtl Attending Provider Instructions: 1. Keep RLE wounds clean and dry, change dry dressing to groin daily to prevent maceration. Cover other wounds with dry dressings ONLY IF drainage noted. 2. Increase activity as tolerated. WBAT RLE 3. May shower and dry wounds gently. 4. Needs follow up with wound clinic, for appt. 5. Needs follow up with Dr Park or Prabha Kelly PA-C, in 2-3 weeks for staple removal Monitor right inguinal/thigh hematoma. Repeat basic metabolic profile in 2-3 days. Follow up at [facility] in 1 week. Pending Studies at Discharge: No Stand-Alone Forms: My [facility] Skilled Items Patient informed of condition?: Yes DNR: No Discharge Level of Care: Acute rehab Communicable Disease: Yes (MRSA) Discharge Prognosis: Stable Lines: None Urinary Catheter: No Medications and DC Order Prescriptions: New clindamycin HCl 300 mg capsule 300 mg PO TID 21 Days Qty: 90 RF: 1 Culturelle 10 billion cell capsule 1 cap PO DAILY Qty: 30 RF: 2 Continued citalopram [Celexa] 40 mg tablet 40 mg PO HS RF: 0 aspirin [Aspir-81] 81 mg tablet,delayed release (DR/EC) 81 mg PO QAM RF: 0 gabapentin 800 mg tablet 800 mg PO TID RF: 0 omega 6-faz-iio-fish oil [Fish Oil] 1,000 mg (120 mg-180 mg) capsule 1 cap PO DAILY RF: 0 Spiriva with HandiHaler 18 mcg capsule, w/inhalation device 1 cap INH HS RF: 0 furosemide [Lasix] 40 mg tablet 40 mg PO BID RF: 0 magnesium oxide 400 mg magnesium Tablet 400 mg PO QAM RF: 0 nitroglycerin 0.4 mg tablet, sublingual 0.4 mg sublingual UD PRN (Reason: Chest Pain) RF: 0 spironolactone 100 mg tablet 100 mg PO QAM RF: 0 ibuprofen 200 mg Capsule 600 mg PO HS PRN (Reason: Pain) RF: 0 atorvastatin 80 mg Tablet 80 mg PO HS RF: 0 ipratropium-albuterol 0.5 mg-3 mg(2.5 mg base)/3 mL Solution For Nebulization 3 ml INHALATION Q6H PRN (Reason: Shortness Of Breath Or Wheezing) RF: 0 omeprazole 40 mg Capsule,Delayed Release(Dr/Ec) 40 mg PO QAM RF: 0 metoprolol succinate 25 mg Tablet Extended Release 24 Hr 12.5 mg PO QPM RF: 0 ferrous gluconate 324 mg (38 mg iron) Tablet 324 mg PO TID RF: 0 Symbicort 160-4.5 mcg/actuation Hfa Aerosol Inhaler 2 puff INHALATION BID RF: 0 multivitamin Tablet 1 tab PO QAM RF: 0 vitamin B complex Tablet 1 tab PO QAM RF: 0 folic acid 1 mg Tablet 1 mg PO QAM RF: 0 tramadol 50 mg Tablet 50 mg PO BID PRN (Reason: pain) RF: 0 Discontinued prednisone 50 mg Tablet 50 mg PO DAILY RF: 0 Discharge Orders: Discharge Order (Routine); Ordered 11/08/19 Ordered By: Elijah Park Admission Data Admit Date/Time: 11/02/19 12:52 Attending Provider: Elijah Park Admit Provider: Elijah Park Primary Care Provider: Chadd Dudley Other Providers: [facility] ; [facility] [place] ; [place] ; [place] ; [facility], ; Jonathon Walters ; Kaylynn Schroeder ; Dejuan Davis
--- NOTE | 2019-11-26 11:40 | Operative Report ---
Post Operative Report Pre & Post Diagnosis Operation Date: 11/02/19 09:55 Pre-Op Diagnosis: Midsuperficial femoral to distal popliteal artery occlusion with occlusion of anterior tibial and peroneal arteries Post-Op Diagnosis: Midsuperficial femoral to distal popliteal artery occlusion with occlusion of anterior tibial and peroneal arteries I identified the patient and participated in the time-out.: Yes Procedure Operation Date: 11/02/19 09:55 Actual Procedures p Right common femoral enarterectomy veinpatch graft, Right Femoral to Posterior Tibial Artery Insitu Bypass(Right) - Elijah Park MD Surgeon Elijah Park MD Quilting Machine Operator MD [facility],PAC Estimated Blood Loss 200 Findings Consistent with Post-Op Diagnosis Specimens none Anesthesia Type General Complications none Disposition Accompanied Patient To Recovery: No Disposition: Recovery Room Indications This is a 69-year-old female with a nonhealing ulcer of her right lower extremity. She was found to have a femoral-popliteal artery occlusion. Endovascular approach was not successful. Bypass was recommended. She understood the risks options benefits and agreed to this procedure. Description of Procedure Patient was taken to the operating placed in the supine position. The right leg was then prepped and draped in sterile manner. A timeout was performed and the patient was identified. Longitudinal incision was made in the right groin. This carried down to the right where the common femoral arteries identified. It was heavily calcified at the level of the femoral artery. Next incision was made in the mid calf medial aspect. This carried down to where the posterior tibial artery was identified it was good caliber soft and very usable for bypass landing zone. The saphenous vein was identified at the saphenofemoral junction. It was good caliber and usable for bypass. Distally in the lower incision separately was also identified and was of good caliber. The patient was heparinized at that time. The saphenous vein was then divided at the saphenofemoral junction using a Christian clamp to control the bleeding. Once this was transected the stump was oversewn with a 5-0 Prolene suture. Saphenous vein was then examined. The first valve was then transected and excised under direct vision. Next the common femoral artery was clamped proximally and the superficial and profunda femoral arteries were clamped distally. There is a large amount of plaque present in the common femoral artery. It was decided to do an endarterectomy and then placed the patch on this artery. Endarterectomy common femoral artery was then performed in usual fashion. Once the plaque was removed the artery was closed using the bovine pericardial patch for closure. Once this was completed the saphenous vein was brought over to the common femoral artery. We made a longitudinal incision in the patch graft. End-to-side anastomosis was accomplished via the saphenous vein and the common femoral artery patch using a 5-0 Prolene suture in the usual vascular fashion. Once this was completed the clamps were removed. Good flow was seen on the profundofemoral artery again. There was good dilatation of the saphenous vein down to the next valve. The distal end of the saphenous vein was then transected in the lower part of the calf incision. He the distal end was ligated. Using a LeMaitre valve cutter the valves of the saphenous vein were then transected. Good flow was seen on the distal end of the vein graft. The posterior tibial artery was then clamped proximally and distally. A longitudinal arteriotomy was then performed. The artery at that level is very usable. A flow rester was then placed in the posterior tibial artery and the clamps removed. Good control was noted. Saphenous vein was then beveled and an trimmed appropriate length. The site anastomosis was accomplished and the saphenous vein and posterior tibial artery using a 6-0 Prolene suture in usual vascular fashion. Prior to completing the closure backbleeding for bleeding was allowed to occur. Final few sutures were then placed and securely tied. Clamps and removed good flow was seen there was an excellent Doppler signal heard beyond the anastomosis. There is a good signal heard the posterior tibial artery at the ankle level also. We then punctured the sidebranch in the groin of the saphenous vein and the micropuncture sheath was inserted. An arteriogram was then performed which showed a patent distal anastomosis. 3 large side branches were then identified. The leg was marked at the level of the branches. The sheath was then removed and the sidebranch which we entered was ligated. We then made small incisions over the 3 areas of side branches all 3 branches were identified and ligated in situ. Wound was then inspected for hemostasis. Both proximal distal anastomoses were dry without any bleeding. The wounds also showed good hemostasis. We then closed in usual fashion using running 2-0 Vicryl suture for the femoral sheath and 3-0 Vicryl suture for the subcutaneous layers. Alayna were used for the skin. Sterile dressings were applied to the wound. The patient left the operation room in satisfactory condition and tolerated the procedure well. All needle and sponge counts were correct at the end of the procedure. I attest to the content of the Intraoperative Record and any orders documented therein. Any exceptions are noted below.
== END 2019-11-09 15:50 | DRG 253 ==
LOC: ASU 05:53 → 1E 12:52 → 3N 11-03 12:15 → 2E 11-07 01:53 → 4W 11-08 18:02

== ENCOUNTER 2019-12-10 13:21 | Inpatient (IN) ==
--- NOTE | 2019-12-10 15:14 | Emergency Department Note ---
ED Visit Note I assisted Dr. Mosley with the care of this patient . Resident Activity Tracking Resident Involvement: Resident Care Provided Care Provided: Adult ED
[2019-12-10] MEDS ORDERED: SODIUM CHLORIDE 0.9% 1000ML 1,000 ML IV ONE (15:27)
[2019-12-10] MEDS ORDERED: CEFEPIME 2,000 MG/20 ML VIAL IV STA (15:34)
[2019-12-10 15:48] LABS: Basophils # (auto) 0.01 K/uL (0-0.2); Basophils % (auto) 0.1 %; Hematocrit (blood only) 38.6 % (37-47); Hemoglobin 12.7 g/dL (12.0-16.0); Immature Granulocytes # (auto) 0.01 K/uL (0.00-0.02); Immature Granulocytes % (auto) 0.1 %; Lymphocytes # (auto) 0.48 K/uL (1.2-3.4); Lymphocytes % (auto) 5.8 %; Mean Corpuscular Hemoglobin 28.9 pg (25-34); Mean Corpuscular Hgb Conc 32.9 g/dL (32-36); Mean Corpuscular Volume 87.7 fL (80-100); Mean Platelet Volume 10.6 fL (7.4-10.4); Monocytes # (auto) 0.53 K/uL (0.11-0.59); Monocytes % (auto) 6.4 %; Neutrophils # (auto) 7.19 K/uL (1.4-6.5); Neutrophils % (auto) 87.6 %; Platelet Count 184 K/uL (130-400); RDW Coefficient of Variation 18.2 % (11.5-14.5); RDW Standard Deviation 58.2 fL (36.4-46.3); White Blood Count 8.22 K/uL (4.8-10.8)
[2019-12-10 15:55] LABS: Albumin Level 3.2 gm/dl (3.4-5.0); BUN Creatinine Ratio 45.6 (10-20); Calcium 9.4 mg/dl (8.5-10.1); Creatinine Clr Calc Pharmacy 32.2 ml/min; Est GFR (African American) 45.9; Est GFR (Non-African American) 39.6; Magnesium 2.4 mg/dl (1.8-2.4); Potassium 4.5 mmol/L (3.5-5.1)
[2019-12-10 15:56] LABS: INR 1.1 (0.9-1.1); Partial Thromboplastin Ratio 1.1; Prothrombin Time 11.5 Seconds (9.0-12.0)
[2019-12-10 15:58] LABS: Albumin Globulin Ratio 0.7 (0.9-2); Bilirubin,Total 0.5 mg/dl (0.2-1); Globulin 4.9 gm/dl (2.5-4.0); Total Protein 8.1 gm/dl (6.4-8.2)
--- NOTE | 2019-12-10 16:19 | XRay Report ---
RIGHT ELBOW 3 VIEWS HISTORY: R elbow swelling and pain COMPARISON: None. FINDINGS: There is no fracture or dislocation. Posterior soft tissue swelling. No elbow effusion. Mil d osteoarthritis. No radiopaque foreign bodies. IMPRESSION: Posterior soft tissue swelling within the right elbow. No fractures. ACT 112: Negative or not required by law. Electronically signed by: Sanjay Nielsen M.D. 12/10/2019 4:18 PM
--- NOTE | 2019-12-10 16:21 | XRay Report ---
XR knee RT 3V CLINICAL HISTORY: R knee pain and swelling COMPARISON STUDY: Right tibia/fibula 09/13/2019. FINDINGS: The bones are osteopenic. Chondrocalcinosis. No fracture or dislocation. No significant kne e effusion. Severe cartilage space narrowing with [id number]-ev-fuir articulation at the lateral compartmen t of the knee. There is associated subchondral sclerosis at the lateral compartment. There is mild ca rtilage space narrowing within the medial and patellofemoral compartments. There are tricompartmental marginal osteophytes. IMPRESSION: 1. No fractures within the right knee. 2. Chondrocalcinosis. 3. 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 ACT 112: Negative or not required by law. Electronically signed by: Sanjay Nielsen M.D. 12/10/2019 4:19 PM
--- NOTE | 2019-12-10 16:22 | XRay Report ---
SINGLE VIEW CHEST CLINICAL HISTORY: Sepsis. FINDINGS: An AP, portable, semierect chest radiograph is compared to study dated 11/07/2019. The exam ination is degraded by portable technique and patient rotation. The heart is enlarged noting atherosc lerotic calcification of the thoracic aorta. The pulmonary vasculature is noncongested. Chronic inter stitial thickening is similar to previous. Minimal atelectasis is noted at the left lung base. There is no airspace consolidation or large pleural effusion. No pneumothorax is seen. The skeletal structu res are osteopenic. Advanced degenerative change and scoliosis is noted in the thoracic spine. Advanc ed arthritic changes seen in the shoulders. Superior subluxation of the humeral heads suggest chronic rotator cuff injuries. Surgical clips are present and neck bilaterally. IMPRESSION: Cardiomegaly with no active disease in the chest. ACT 112: Negative or not required by law. Electronically signed by: Jono Berg M.D. 12/10/2019 4:21 PM
[2019-12-10 16:27] LABS: Influenza A virus by PCR Neg for Influ A (Neg); Influenza B virus by PCR Neg for Influ B (Neg)
[2019-12-10] MEDS ORDERED: SODIUM CHLORIDE 0.9% 500 ML IV ONE (16:36)
[2019-12-10 16:45] LABS: Bacteria Urine Automated Negative (Negative); Bilirubin Urine Negative (Negative); Blood Urine 2+ (Negative); Cast Urine Automated 0 /lpf (0-5); Color Urine Yellow; Epithelial Cell Urine Auto 0-5 /lpf (0-5); Glucose Urine UA Negative (Negative); Ketones Urine Negative (Negative); Leukocyte Esterase Urine Negative (Negative); Nitrite Urine Negative (Negative); Protein Urine Trace (Negative); Specific Gravity Urine 1.015 (1.000-1.030); Urobilinogen Urine Negative (Negative); pH Urine 5.5 (4.5-7.5)
[2019-12-10 16:52] LABS: Appearance Urine Clear (Clear)
--- NOTE | 2019-12-10 17:55 | Emergency Department Note ---
Entered by Rachele Kirk acting as a scribe for Jono Mosley MD History of Present Illness General Chief complaint: Weakness Stated complaint: CONFUSED, LOW HEART RATE, DIABETIC Time Seen by Provider: 12/10/19 14:41 Source: patient History of Present Illness Onset (ago): day(s) (yesterday) Location: upper extremity and lower extremity Pain Consistency: + other (worsening) Maximum Pain Intensity: 10 Quality: + other (weakness) Relieved By: not by medication (Tramadol, Ibuprofen) Associated symptoms: + denies other symptoms (paresthesia, abdominal pain, diarrhea, dysuria), + confusion, + cough, + headaches and + other (low heart rate, left side tremors, dark urine, right hand pain, right elbow pain, right knee pain, rhinorrhea); no chest pain, no fever/chills, no nausea/vomiting, no shortness of breath and no weakness (on one side) The patient is a 69 year old female who presents to the Emergency Room with complaints of worsening weakness starting yesterday. The patient states that she started to feel weak yesterday and ended up sleeping in her wheel chair. She reports that today when she woke up she felt even weaker and has felt sleepy. She reports that she was too weak to even eat or drink today, so she didnt make it to her cardiology appointment. The patient states that when her PT and wound care nurses came to the house today, they noticed that she was more confused, repeating herself, forgetting things, and her heart rate was low. She reports that they recommended that she come here. The patient complains of a headache, left sided tremors, dark urine, right hand pain, right elbow pain, right knee pain, rhinorrhea for 3 weeks, and a cough for 3 weeks. She states that she did see rheumatology yesterday for possible rheumatoid arthritis vs gout. She notes that they only did blood work and did not tap any of her joints. She notes that she has tried taking Tramadol and Ibuprofen today with no relief. The patient denies fever, chills, paresthesia, weakness on one side, chest pain, shortness of breath, abdominal pain, nausea, vomiting, diarrhea, dysuria, and drinking alcohol. Home Medications Home Medications Medication Instructions Recorded Confirmed Type aspirin 81 mg tablet,delayed 81 mg PO DAILY 07/22/18 12/10/19 History release citalopram 40 mg tablet 40 mg PO DAILY 07/22/18 12/10/19 History gabapentin 800 mg tablet 800 mg PO TID tab 07/22/18 12/10/19 History omega 8-bgv-usi-fish oil 1,000 mg 1 cap PO DAILY cap 07/22/18 12/10/19 History (120 mg-180 mg) capsule Symbicort 2 puff INHALATION BID 03/01/19 12/10/19 History atorvastatin 80 mg PO DAILY 03/01/19 12/10/19 History ferrous gluconate 324 mg PO TID 03/01/19 12/10/19 History folic acid 1 mg PO DAILY 03/01/19 12/10/19 History ipratropium-albuterol 3 ml INHALATION Q6H PRN 03/01/19 12/10/19 History metoprolol succinate 12.5 mg PO DAILY 03/01/19 12/10/19 History multivitamin 1 tab PO DAILY 03/01/19 12/10/19 History omeprazole 40 mg PO DAILY 03/01/19 12/10/19 History vitamin B complex 1 tab PO DAILY 03/01/19 12/10/19 History furosemide [Lasix] 40 mg PO BID 04/05/19 12/10/19 History magnesium oxide 400 mg PO DAILY 04/05/19 12/10/19 History nitroglycerin 0.4 mg SUBLINGUAL UD PRN 04/05/19 12/10/19 History tramadol 50 mg PO BID PRN 07/15/19 12/10/19 History tiotropium bromide 18 mcg capsule 1 cap INH DAILY 09/02/19 12/10/19 History with inhalation device spironolactone 100 mg PO DAILY 09/13/19 12/10/19 History ibuprofen 600 mg PO UD PRN 10/25/19 12/10/19 History Lactobacillus rhamnosus GG 1 cap PO DAILY #30 cap 11/09/19 12/10/19 Rx [Culturelle] colchicine [Colcrys] 0.6 mg PO DAILY 12/10/19 12/10/19 History fluticasone propionate 1 spray INTRANASAL DAILY 12/10/19 12/10/19 History methotrexate sodium 15 mg SUBCUT WK 12/10/19 12/10/19 History Allergies Allergy/AdvReac Type Severity Reaction Status Date / Time Penicillins Allergy Unknown hives/upset Verified 12/10/19 17:59 stomach/diarrhea Iodinated Contrast Media AdvReac Unknown severe Verified 12/10/19 17:59 [Iodinated Contrast- Oral vomiting and IV Dye] oxycodone [From Percocet] AdvReac Unknown vomiting Verified 12/10/19 17:59 Past Med/Surg History Medical History (Updated 12/10/19 @ 17:13 by Rachele Kirk) Acid reflux Aortic valve regurgitation CAD (coronary artery disease) (Chronic) 2004 -PCI to unknown vessel Charcot foot due to diabetes mellitus (Chronic) Chronic combined systolic and diastolic CHF (congestive heart failure) (Chronic) EF 40 to 44%, grade 2 diastolic dysfunction Cirrhosis of liver "UNDETERMINED ORIGIN" CKD (chronic kidney disease), stage III (Chronic) pt denies having any problems with kidneys. COPD (chronic obstructive pulmonary disease) (Chronic) Diabetic peripheral neuropathy (Chronic) History of alcohol abuse History of anxiety History of depression History of endometriosis "STAGE 1 GRADE 1" History of sleep apnea HX CPAP HTN (hypertension) Hypercholesteremia SARANYA (iron deficiency anemia) (Chronic) Impaired fasting glucose A1C 6/1% 05/2019 Ischemic cardiomyopathy (Chronic) EF 40-44% Mitral regurgitation PAD (peripheral artery disease) (Chronic) Sleep apnea Snores Valvular heart disease (Chronic) mod-severe MR, mod TR Surgical History History of anesthesia reaction PT REPORTS URINARY RETENTION POST OP, USUALLY REQUIRING STRAIGHT CATH History of bilateral carotid endarterectomy (Chronic) History of cardiac cath 2004 ..TOLD HAD 2 AL'S - STENT X1 History of cholecystectomy (Chronic) History of colonoscopy History of hysterectomy (Chronic) supracervical History of left below knee amputation (Chronic) History of lumbar discectomy S/P angioplasty UNABLE TO PERFORM 10/22/19 - REASON FOR UPCOMING SURGERY S/P vascular surgery Family History Father Family history of diabetes mellitus Family history of COPD (chronic obstructive pulmonary disease) Sister Breast cancer Social History Preferred Language: Tajik Communication Ability: Effective Visual Impairment: Limited Hearing Ability: Normal Neon Sign Mechanic Required: No Beliefs That Will Affect Care: None marital status: Current Living Situation: Spouse current occupational status: disabled Feels Safe at Home: Yes Smoking Status: Current every day smoker Tobacco Type: cigarettes ; Cigarettes Per Day: < 5 ; Second Hand Exposure: Yes ; Hx Alcohol Use: No Hx Substance Use: No Review of Systems See HPI for pertinent positives & negatives. and A total of 10 systems reviewed and were otherwise negative Physical Exam Vital Signs Vital Signs - 24 hr 12/10/19 13:28 12/10/19 15:24 12/10/19 15:28 Temperature 37.6 C H Temperature Source Oral Pulse Rate 64 Pulse Rate [Left Finger] 70 Pulse Rhythm Regular Regular Pulse Rhythm [Left Finger] Regular Pulse Strength Normal Pulse Strength [Left Finger] Normal Respiratory Rate 20 20 Respiratory Effort / Characteristics Non-Labored Spontaneous Non-Labored Spontaneous Respiratory Depth Normal Respiratory Pattern Regular Blood Pressure 124/63 Blood Pressure [Left Arm] 125/57 L Blood Pressure Mean 83 Blood Pressure Mean [Left Arm] 79 Blood Pressure Position Sitting Blood Pressure Position [Left Arm] Sitting Pulse Oximetry 91 97 98 Oxygen Delivery Method Room Air Room Air Room Air Sepsis Recent Fever Within 48 Hours No Sepsis New/Unexplained Change in Mental Status No Sepsis Action Taken by Nursing No Action Required 12/10/19 15:41 12/10/19 17:00 Temperature Temperature Source Pulse Rate Pulse Rate [Left Finger] 75 71 Pulse Rhythm Pulse Rhythm [Left Finger] Pulse Strength Pulse Strength [Left Finger] Respiratory Rate 22 22 Respiratory Effort / Characteristics Respiratory Depth Respiratory Pattern Blood Pressure Blood Pressure [Left Arm] 125/52 L 138/58 L Blood Pressure Mean Blood Pressure Mean [Left Arm] 76 84 Blood Pressure Position Blood Pressure Position [Left Arm] Pulse Oximetry 98 97 Oxygen Delivery Method Sepsis Recent Fever Within 48 Hours Sepsis New/Unexplained Change in Mental Status Sepsis Action Taken by Nursing GENERAL: Patient is in no acute distress. HEENT: No acute trauma, normocephalic atraumatic, mucous membranes are dry, no nasal congestion, no scleral icterus. NECK: No stridor, no adenopathy, no meningismus, trachea is midline. LUNGS: Wheezing with expiration bilaterally. No respiratory distress. Equal breath sounds. HEART: 3/6 systolic murmur. Regular rate and rhythm. ABDOMEN: Soft, nontender, bowel sounds positive, no hernias, no peritonitis. EXTREMITIES: She has a left below the knee amputation. Her right lower extremity has a wound to the medial aspect of the mid right leg. There is some surrounding erythema and warmth. There is some scant bloody drainage. There is some erythema to the right posterior elbow with what appears to be fluid in the olecranon bursa. This area is tender. NEUROLOGIC: Some confusion noted. Moves all extremities. Awake. Answers simple and direct questions well. SKIN: No rash, no jaundice, no diaphoresis. Course Course 1447: The resident, Luis Jaramillo, performed her initial history and physical exam. 1541: The patient was evaluated in room B6. A complete history and physical exam was performed. 1635: The resident, Luis Jaramillo, reevaluated the patient and she just gave a urine. 1711: The resident, Luis Jaramillo, reevaluated the patient and updated her on her test results. She discussed the treatment plan with her. She verbally agrees and understands. 1713: The resident, Luis Jaramillo, discussed the patient[facility] She will evaluate the patient for further management. Administered Medications Discontinued Medications Sodium Chloride (Nss 1000ml) 1,000 mls @ 999 mls/hr IV .Q1H1M ONE Stop: 12/10/19 16:27 Last Admin: 12/10/19 16:40 Dose: 999 mls/hr Documented by: [id number] Cefepime HCl (Maxipime) 2,000 mg in 20 mls @ 5 mls/min IV NOW STA; Protocol Stop: 12/10/19 15:37 Last Admin: 12/10/19 17:19 Dose: 5 mls/min Documented by: [id number] Sodium Chloride (Nss) 500 mls @ 999 mls/hr IV .Q31M ONE Stop: 12/10/19 17:06 Last Admin: 12/10/19 17:19 Dose: 999 mls/hr Documented by: [id number] Medical Decision Making Differential Diagnosis Differential diagnoses include sepsis, bacteremia, cellulitis, dehydration, renal injury, pneumonia, immunocompromised, UTI, pyelonephritis. Medical Records Attestation: I reviewed the patient's medical records. Home Medications Current Medication List: was personally reviewed by me Laboratory Data Attestation: I reviewed the patient's lab results. Result diagrams: 12/10/19 14:20 12/10/19 14:20 Lab Results 12/10/19 12/10/19 12/10/19 Range/Units 14:20 14:20 14:20 WBC 8.22 (4.8-10.8) K/uL RBC 4.40 (4.2-5.4) M/uL Hgb 12.7 (12.0-16.0) g/dL Hct 38.6 (37-47) % MCV 87.7 (80-100) fL MCH 28.9 (25-34) pg MCHC 32.9 (32-36) g/dL RDW Std Deviation 58.2 H (36.4-46.3) fL RDW Coeff of Tiburcio 18.2 H (11.5-14.5) % Plt Count 184 (130-400) K/uL MPV 10.6 H (7.4-10.4) fL Immature Gran % (Auto) 0.1 % Neut % (Auto) 87.6 % Lymph % (Auto) 5.8 % [place] % (Auto) 6.4 % Eos % (Auto) 0.0 % Baso % (Auto) 0.1 % Immature Gran # (Auto) 0.01 (0.00-0.02) K/uL Neut # (Auto) 7.19 H (1.4-6.5) K/uL Lymph # (Auto) 0.48 L (1.2-3.4) K/uL [place] # (Auto) 0.53 (0.11-0.59) K/uL Eos # (Auto) 0.00 (0-0.5) K/uL Baso # (Auto) 0.01 (0-0.2) K/uL PT 11.5 (9.0-12.0) Seconds INR 1.1 (0.9-1.1) APTT 30.0 (21.0-31.0) Seconds PTT Ratio 1.1 Sodium 134 L (136-145) mmol/L Potassium 4.5 (3.5-5.1) mmol/L Chloride 98 (98-107) mmol/L Carbon Dioxide 32 (21-32) mmol/L Anion Gap 4.0 (3-11) BUN 62 H (7-18) mg/dl Creatinine 1.36 H (0.6-1.2) mg/dl Est Cr Clr Drug Dosing 32.2 ml/min Est GFR ( Amer) 45.9 Est GFR (Non-Af Amer) 39.6 BUN/Creatinine Ratio 45.6 H (10-20) Glucose 118 H (70-99) mg/dl Lactate (0.4-2.0) mmol/L Calcium 9.4 (8.5-10.1) mg/dl Magnesium 2.4 (1.8-2.4) mg/dl Total Bilirubin 0.5 (0.2-1) mg/dl AST 24 (15-37) U/L ALT 34 (12-78) U/L Alkaline Phosphatase 188 H (45-117) U/L Total Protein 8.1 (6.4-8.2) gm/dl Albumin 3.2 L (3.4-5.0) gm/dl Globulin 4.9 H (2.5-4.0) gm/dl Albumin/Globulin Ratio 0.7 L (0.9-2) Urine Color Urine Appearance (Clear) Urine pH (4.5-7.5) Ur Specific [place] (1.000-1.030) Urine Protein (Negative) Urine Glucose (UA) (Negative) Urine Ketones (Negative) Urine Blood (Negative) Urine Nitrite (Negative) Urine Bilirubin (Negative) Urine Urobilinogen (Negative) Ur Leukocyte Esterase (Negative) Urine WBC (Auto) (0-5) /hpf Urine RBC (Auto) (0-4) /hpf U Hyaline Cast (Auto) (0-5) /lpf U Epithel Cells (Auto) (0-5) /lpf Urine Bacteria (Auto) (Negative) Influenza Type A (PCR) (Neg) Influenza Type B (PCR) (Neg) 12/10/19 12/10/19 12/10/19 Range/Units 15:42 16:25 16:47 WBC (4.8-10.8) K/uL RBC (4.2-5.4) M/uL Hgb (12.0-16.0) g/dL Hct (37-47) % MCV (80-100) fL MCH (25-34) pg MCHC (32-36) g/dL RDW Std Deviation (36.4-46.3) fL RDW Coeff of Tiburcio (11.5-14.5) % Plt Count (130-400) K/uL MPV (7.4-10.4) fL Immature Gran % (Auto) % Neut % (Auto) % Lymph % (Auto) % [place] % (Auto) % Eos % (Auto) % Baso % (Auto) % Immature Gran # (Auto) (0.00-0.02) K/uL Neut # (Auto) (1.4-6.5) K/uL Lymph # (Auto) (1.2-3.4) K/uL [place] # (Auto) (0.11-0.59) K/uL Eos # (Auto) (0-0.5) K/uL Baso # (Auto) (0-0.2) K/uL PT (9.0-12.0) Seconds INR (0.9-1.1) APTT (21.0-31.0) Seconds PTT Ratio Sodium (136-145) mmol/L Potassium (3.5-5.1) mmol/L Chloride (98-107) mmol/L Carbon Dioxide (21-32) mmol/L Anion Gap (3-11) BUN (7-18) mg/dl Creatinine (0.6-1.2) mg/dl Est Cr Clr Drug Dosing ml/min Est GFR ( Amer) Est GFR (Non-Af Amer) BUN/Creatinine Ratio (10-20) Glucose (70-99) mg/dl Lactate 1.7 (0.4-2.0) mmol/L Calcium (8.5-10.1) mg/dl Magnesium (1.8-2.4) mg/dl Total Bilirubin (0.2-1) mg/dl AST (15-37) U/L ALT (12-78) U/L Alkaline Phosphatase (45-117) U/L Total Protein (6.4-8.2) gm/dl Albumin (3.4-5.0) gm/dl Globulin (2.5-4.0) gm/dl Albumin/Globulin Ratio (0.9-2) Urine Color Yellow Urine Appearance Clear (Clear) Urine pH 5.5 (4.5-7.5) Ur Specific [place] 1.015 (1.000-1.030) Urine Protein Trace H (Negative) Urine Glucose (UA) Negative (Negative) Urine Ketones Negative (Negative) Urine Blood 2+ H (Negative) Urine Nitrite Negative (Negative) Urine Bilirubin Negative (Negative) Urine Urobilinogen Negative (Negative) Ur Leukocyte Esterase Negative (Negative) Urine WBC (Auto) 1-5 (0-5) /hpf Urine RBC (Auto) 5-10 H (0-4) /hpf U Hyaline Cast (Auto) 0 (0-5) /lpf U Epithel Cells (Auto) 0-5 (0-5) /lpf Urine Bacteria (Auto) Negative (Negative) Influenza Type A (PCR) Neg for Influ A (Neg) Influenza Type B (PCR) Neg for Influ B (Neg) Imaging Data Radiologist's Impression: Radiology results as stated below per my review and the radiologist's interpretation: SINGLE VIEW CHEST CLINICAL HISTORY: Sepsis. FINDINGS: An AP, portable, semierect chest radiograph is compared to study dated 11/07/2019. The examination is degraded by portable technique and patient rotation. The heart is enlarged noting atherosclerotic calcification of the thoracic aorta. The pulmonary vasculature is noncongested. Chronic interstitial thickening is similar to previous. Minimal atelectasis is noted at the left lung base. There is no airspace consolidation or large pleural effusion. No pneumothorax is seen. The skeletal structures are osteopenic. Advanced degenerative change and scoliosis is noted in the thoracic spine. Advanced arthritic changes seen in the shoulders. Superior subluxation of the humeral heads suggest chronic rotator cuff injuries. Surgical clips are present and neck bilaterally. IMPRESSION: Cardiomegaly with no active disease in the chest. ACT 112: Negative or not required by law. Electronically signed by: Jono Berg M.D. 12/10/2019 4:21 PM RIGHT ELBOW 3 VIEWS HISTORY: R elbow swelling and pain COMPARISON: None. FINDINGS: There is no fracture or dislocation. Posterior soft tissue swelling. No elbow effusion. Mild osteoarthritis. No radiopaque foreign bodies. IMPRESSION: Posterior soft tissue swelling within the right elbow. No fractures. ACT 112: Negative or not required by law. Electronically signed by: Sanjay Nielsen M.D. 12/10/2019 4:18 PM XR knee RT 3V CLINICAL HISTORY: R knee pain and swelling COMPARISON STUDY: Right tibia/fibula 09/13/2019. FINDINGS: The bones are osteopenic. Chondrocalcinosis. No fracture or dislocation. No significant knee effusion. Severe cartilage space narrowing with [id number] articulation at the lateral compartment of the knee. There is associated subchondral sclerosis at the lateral compartment. There is mild cartilage space narrowing within the medial and patellofemoral compartments. There are tricompartmental marginal osteophytes. IMPRESSION: 1. No fractures within the right knee. 2. Chondrocalcinosis. 3. 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 ACT 112: Negative or not required by law. Electronically signed by: Sanjay Nielsen M.D. 12/10/2019 4:19 PM ECG Data Attestation: I personally reviewed and interpreted this ECG as follows: Indication: + weakness Rate (beats per minute): 69 Rhythm: + sinus rhythm ECG Intervals/blocks: + First degree AV block ECG ST segments: no ST elevation ECG Findings: + Other (QT-c 441); no PVCs Blood Pressure Blood Pressure Findings: Elevated blood pressure Blood Pressure Disposition: further management by hospitalist MDM Narrative There is no leukocytosis or concerning anemia. No coagulopathy. There was a mild elevation to the creatinine consistent with dehydration. Alk phos slightly elevated however, the bilirubin, AST and ALT were normal. Lactic acid level was not elevated making severe sepsis less likely. Urinalysis did not show any evidence for infection. Influenza testing was negative. Chest film does not show pneumonia or CHF. Right elbow and right knee films were done, some arthritis was seen, there was no evidence for fracture. On exam, the patient seemed quite dehydrated. She was somewhat confused. She was warm to the touch. She appeared to have a right lower extremity cellulitis. The patient was given IV saline. She received IV cefepime as antibiotic coverage. I am concerned for infection as the root cause for her presentation. Certainly, there is a component of dehydration as well. Given her history, I do think a hospital stay is warranted. She is not stable for discharge home. I talked to the patient and her family, I spoke with the rehabilitation case coordinator. The on-call hospitalist has been consulted. Continuous Cardiac Monitoring: An order was placed for continuous cardiac monitoring. The monitor shows a rate of 71 with sinus rhythm with a first- degree AV block. Impression & Plan Change in mental status, Cellulitis of leg, right, Dehydration Discharge Plan Visit Data Chief Complaint: Weakness Stated Complaint: CONFUSED, LOW HEART RATE, DIABETIC Other Complaint: Illness ED Provider: Jono Mosley ED Midlevel Provider: Noor,Rahiba Discharge Problem: Change in mental status, Cellulitis of leg, right, Dehydration Patient Disposition: Being Evaluated by Hospitalist Forms Stand Alone Forms: My [facility] Prescriptions Prescriptions: No Action citalopram [Celexa] 40 mg tablet 40 mg PO DAILY RF: 0 aspirin [Aspir-81] 81 mg tablet,delayed release (DR/EC) 81 mg PO DAILY RF: 0 gabapentin 800 mg tablet 800 mg PO TID RF: 0 omega 8-gat-fya-fish oil [Fish Oil] 1,000 mg (120 mg-180 mg) capsule 1 cap PO DAILY RF: 0 Spiriva with HandiHaler 18 mcg capsule, w/inhalation device 1 cap INH DAILY RF: 0 furosemide [Lasix] 40 mg tablet 40 mg PO BID RF: 0 magnesium oxide 400 mg magnesium Tablet 400 mg PO DAILY RF: 0 nitroglycerin 0.4 mg tablet, sublingual 0.4 mg sublingual UD PRN (Reason: Chest Pain) RF: 0 spironolactone 100 mg tablet 100 mg PO DAILY RF: 0 ibuprofen 200 mg Capsule 600 mg PO UD PRN (Reason: Pain) RF: 0 Culturelle 10 billion cell capsule 1 cap PO DAILY Qty: 30 RF: 2 methotrexate sodium 25 mg/mL solution 15 mg subcut WK RF: 0 colchicine [Colcrys] 0.6 mg tablet 0.6 mg PO DAILY RF: 0 fluticasone propionate 50 mcg/actuation spray,suspension 1 spray INTRANASAL DAILY RF: 0 atorvastatin 80 mg Tablet 80 mg PO DAILY RF: 0 ipratropium-albuterol 0.5 mg-3 mg(2.5 mg base)/3 mL Solution For Nebulization 3 ml INHALATION Q6H PRN (Reason: Shortness Of Breath Or Wheezing) RF: 0 omeprazole 40 mg Capsule,Delayed Release(Dr/Ec) 40 mg PO DAILY RF: 0 metoprolol succinate 25 mg Tablet Extended Release 24 Hr 12.5 mg PO DAILY RF: 0 ferrous gluconate 324 mg (38 mg iron) Tablet 324 mg PO TID RF: 0 Symbicort 160-4.5 mcg/actuation Hfa Aerosol Inhaler 2 puff INHALATION BID RF: 0 multivitamin Tablet 1 tab PO DAILY RF: 0 vitamin B complex Tablet 1 tab PO DAILY RF: 0 folic acid 1 mg Tablet 1 mg PO DAILY RF: 0 tramadol 50 mg Tablet 50 mg PO BID PRN (Reason: pain) RF: 0 Referrals Referrals: PCP,NO [Primary Care Provider] - Discharge Problem: Change in mental status Qualifiers: Altered mental status type: unspecified Qualified Code(s): R41.82 - Altered mental status, unspecified The scribe's documentation has been prepared under my direction and personally reviewed by me in its entirety. I confirm that the note above accurately reflects all work, treatment, procedures, and medical decision making performed by me.
[2019-12-10 18:36] LABS: Base Excess ABG 3.8 mEq/L (-9-1.8); HCO3 ABG 28 mmol/L (19-24); PCO2 ABG 39 mmHg (35-46); PO2 ABG 55 mmHg (80-95); pH ABG 7.47 (7.35-7.45)
[2019-12-10 18:51] LABS: Allen Test POS (Pos)
--- NOTE | 2019-12-10 19:33 | History & Physical Report ---
Date of Service December 10, 2019 Assessment & Plan (1) Cellulitis of right lower extremity: -Admit to telemetry -Patient presenting from home for evaluation of confusion and lethargy -In the ED, exam shows an apparent cellulitis of the right lower extremity; underwent vascular intervention on 11/02/2020 (right common femoral endarterectomy and right femoral/posterior tibial bypass); purulent drainage noted from right groin incision site and erythema noted to the right leg (new compared to pictures from wound care center on 11/25) -Patient just completed clindamycin course yesterday -S/p cefepime in the ED, will continue with cefepime and add on vancomycin due to history of MRSA -Culture obtained from right groin site -Blood cultures -Currently does not appear septic (2) Metabolic encephalopathy: -Likely secondary to infection -ABG obtained and does not show CO2 retention however suspect possible mixed sample given low O2, will repeat -Head CT -Check ammonia level -Hold sedating medications including citalopram and gabapentin (3) CKD (chronic kidney disease), stage III: -Baseline creatinine ~ 1.0 -Mild bump today to 1.3 -Likely prerenal in nature secondary to poor p.o. intake, infection -Hold diuretics -IVF, follow renal functions (4) Rheumatoid arthritis: -Patient was to start methotrexate since she completed her antibiotics yesterday -Continue to hold due to acute infection (5) Diabetes mellitus type 2, diet-controlled: -Hgb A1c 6.1 05/2019 -Monitor glucose on daily labs (6) Aortic stenosis: (7) Chronic combined systolic and diastolic CHF (congestive heart failure): -Appears to be on the dry side currently -Hold diuretics for now -Gentle IVF, monitor volume status closely (8) CAD (coronary artery disease): -Appears stable, no reports of chest pain -Continue aspirin, statin, beta-alma (9) PAD (peripheral artery disease): -Continue aspirin and statin (10) COPD (chronic obstructive pulmonary disease): -No signs of acute exacerbation -Continue home inhalers (11) Cirrhosis of liver: -With history of ascites in the past, none noted on exam today -Hold diuretics secondary to dehydration -Checking ammonia level (12) DVT prophylaxis: -SQ heparin History of Present Illness Chief Complaint: Altered mental status Primary Care Provider: Chadd Dudley MD 69-year-old female who presents the ED for evaluation of altered mental status. Patient's two daughters are at the bedside who provide the history. Yesterday, it was noted that patient developed generalized weakness and she was unable to get up out of her wheelchair. She was incontinent of stool and urine. This is not usual for her. Today, when patient's visiting nurse arrived she found her very confused and lethargic. Patient recently underwent RLE vascular intervention on 11/02/2020 for severe PAD and nonhealing wounds. Patient had been taking clindamycin for right lower extremity cellulitis and completed the course yesterday. No reports of fevers or chills. Denies, dizziness, diaphoresis, syncopal event. Denies chest pain shortness of breath. No abdominal pain, nausea, vomiting, diarrhea. Denies urinary symptoms. In the ED, patient was found to have low-grade temp at 37.6 labs show mildly elevated BUN and creatinine. Patient was given IVF and IV cefepime for suspected right lower extremity cellulitis. Allergies Allergy/AdvReac Type Severity Reaction Status Date / Time Penicillins Allergy Unknown hives/upset Verified 12/10/19 17:59 stomach/diarrhea Iodinated Contrast Media AdvReac Unknown severe Verified 12/10/19 17:59 [Iodinated Contrast- Oral vomiting and IV Dye] oxycodone [From Percocet] AdvReac Unknown vomiting Verified 12/10/19 17:59 Home Medications Home Medications Medication Instructions Recorded Confirmed Type aspirin 81 mg tablet,delayed 81 mg PO DAILY 07/22/18 12/10/19 History release citalopram 40 mg tablet 40 mg PO DAILY 07/22/18 12/10/19 History gabapentin 800 mg tablet 800 mg PO TID tab 07/22/18 12/10/19 History omega 2-iyz-zxi-fish oil 1,000 mg 1 cap PO DAILY cap 07/22/18 12/10/19 History (120 mg-180 mg) capsule Symbicort 2 puff INHALATION BID 03/01/19 12/10/19 History atorvastatin 80 mg PO DAILY 03/01/19 12/10/19 History ferrous gluconate 324 mg PO TID 03/01/19 12/10/19 History folic acid 1 mg PO DAILY 03/01/19 12/10/19 History ipratropium-albuterol 3 ml INHALATION Q6H PRN 03/01/19 12/10/19 History metoprolol succinate 12.5 mg PO DAILY 03/01/19 12/10/19 History multivitamin 1 tab PO DAILY 03/01/19 12/10/19 History omeprazole 40 mg PO DAILY 03/01/19 12/10/19 History vitamin B complex 1 tab PO DAILY 03/01/19 12/10/19 History furosemide [Lasix] 40 mg PO BID 04/05/19 12/10/19 History magnesium oxide 400 mg PO DAILY 04/05/19 12/10/19 History nitroglycerin 0.4 mg SUBLINGUAL UD PRN 04/05/19 12/10/19 History tramadol 50 mg PO BID PRN 07/15/19 12/10/19 History tiotropium bromide 18 mcg capsule 1 cap INH DAILY 09/02/19 12/10/19 History with inhalation device spironolactone 100 mg PO DAILY 09/13/19 12/10/19 History ibuprofen 600 mg PO UD PRN 10/25/19 12/10/19 History Lactobacillus rhamnosus GG 1 cap PO DAILY #30 cap 11/09/19 12/10/19 Rx [Culturelle] colchicine [Colcrys] 0.6 mg PO DAILY 12/10/19 12/10/19 History fluticasone propionate 1 spray INTRANASAL DAILY 12/10/19 12/10/19 History methotrexate sodium 15 mg SUBCUT WK 12/10/19 12/10/19 History Past Med/Surg History Medical History Acid reflux Aortic stenosis Aortic valve regurgitation CAD (coronary artery disease) (Chronic) 2004 -PCI to unknown vessel Charcot foot due to diabetes mellitus (Chronic) Chronic combined systolic and diastolic CHF (congestive heart failure) (Chronic) EF 40 to 44%, grade 2 diastolic dysfunction Cirrhosis of liver "UNDETERMINED ORIGIN" CKD (chronic kidney disease), stage III (Chronic) pt denies having any problems with kidneys. COPD (chronic obstructive pulmonary disease) (Chronic) Diabetes mellitus type 2, diet-controlled Diabetic peripheral neuropathy (Chronic) History of alcohol abuse History of anxiety History of depression History of endometriosis "STAGE 1 GRADE 1" History of sleep apnea HX CPAP HTN (hypertension) Hypercholesteremia SARANYA (iron deficiency anemia) (Chronic) Impaired fasting glucose A1C 6/1% 05/2019 Ischemic cardiomyopathy (Chronic) EF 40-44% Mitral regurgitation PAD (peripheral artery disease) (Chronic) Rheumatoid arthritis Sleep apnea Snores Valvular heart disease (Chronic) Surgical History History of anesthesia reaction PT REPORTS URINARY RETENTION POST OP, USUALLY REQUIRING STRAIGHT CATH History of bilateral carotid endarterectomy (Chronic) History of cardiac cath 2004 ..TOLD HAD 2 ND'S - STENT X1 History of cholecystectomy (Chronic) History of colonoscopy History of hysterectomy (Chronic) supracervical History of left below knee amputation (Chronic) History of lumbar discectomy S/P vascular surgery 11/02/2020-right common femoral endarterectomy, right femoral and posterior tibial bypass Family History Father Family history of diabetes mellitus Family history of COPD (chronic obstructive pulmonary disease) Sister Breast cancer Social History Preferred Language: Spanish Communication Ability: Effective Visual Impairment: Limited Hearing Ability: Normal Child Welfare Specialist Required: No Beliefs That Will Affect Care: None marital status: Current Living Situation: Spouse current occupational status: disabled Feels Safe at Home: Yes Smoking Status: Current every day smoker Tobacco Type: cigarettes ; Cigarettes Per Day: < 5 ; Second Hand Exposure: Yes ; Hx Alcohol Use: No Hx Substance Use: No Review of Systems Review of Systems: Unobtainable due to reduced consciousness Physical Exam Physical Exam: please refer to Dr. Peterson's addendum for physical exam Results & Data Vital Signs (Past 12 Hours) Vital Signs Temp Pulse Pulse Resp BP BP Pulse Ox 12/10/19 17:00 71 22 138/58 L 97 12/10/19 15:41 75 22 125/52 L 98 12/10/19 15:28 98 12/10/19 15:24 70 20 125/57 L 97 12/10/19 13:28 37.6 C H 64 20 124/63 91 Laboratory Results Short CBC 12/10/19 Range/Units 14:20 WBC 8.22 (4.8-10.8) K/uL Hgb 12.7 (12.0-16.0) g/dL Hct 38.6 (37-47) % Plt Count 184 (130-400) K/uL BMP 12/10/19 14:20 Sodium 134 L Potassium 4.5 Chloride 98 Carbon Dioxide 32 BUN 62 H Creatinine 1.36 H Glucose 118 H Calcium 9.4 Liver Function 12/10/19 Range/Units 14:20 Total Bilirubin 0.5 (0.2-1) mg/dl AST 24 (15-37) U/L ALT 34 (12-78) U/L Alkaline Phosphatase 188 H (45-117) U/L Albumin 3.2 L (3.4-5.0) gm/dl Urine 12/10/19 Range/Units 16:25 Urine Color Yellow Urine Appearance Clear (Clear) Urine pH 5.5 (4.5-7.5) Ur Specific Marcell[place] 1.015 (1.000-1.030) Urine Protein Trace H (Negative) Urine Glucose (UA) Negative (Negative) Diagnostic Findings CXR IMPRESSION: Cardiomegaly with no active disease in the chest. RIGHT KNEE X-RAY IMPRESSION: 1. No fractures within the right knee. 2. Chondrocalcinosis. 3. 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 RIGHT ELBOW X-RAY IMPRESSION: Posterior soft tissue swelling within the right elbow. No fractures. Code Status & VTE Plan Code Status Patient is a DNR as per Dr. Mackey's discussion with patient's daughters who are at the bedside. VTE Prophylaxis Plan VTE Prophylaxis will be ordered: Yes Supervising Physician Co-Signing Physician Notes 69-year-old woman with history of type II, COPD, current smoker, chronic systolic and diastolic heart failure, CAD status post stent, valvular heart disease, CKD 3, left BKA, PAD status post surgery, hypertension, SHEILA per records [does not use CPAP anymore] rheumatoid arthritis who was brought in for altered mental status noted this morning. Recent cellulitis and wound, followed with wound care clinic and ID History obtained from daughters were at bedside. Patient drowsy but arousable. Detailed history as noted by Tabby SLOAN On physical exam, General: Drowsy but wakes on touch. In no obvious distress Eyes: PERRL, conjunctivae normal, not pale, anicteric sclerae, EOM intact bilaterally ENMT: External ear and nose normal, oropharynx normal Neck: Normal visual inspection, no tracheal deviation, no swelling noted Respiratory: Normal respiratory effort, no respiratory distress, lungs clear to auscultation, no crackles and no wheezes Cardiovascular: Pulse is RRR. S1 S2, systolic ejection murmur at base, right leg edema Chest (Breasts): Chest: normal inspection of chest Gastrointestinal (Abdomen): Abdomen is not distended, soft, non-tender to palpation, no guarding, no palpable hepatosplenomegaly, normal bowel sounds Musculoskeletal: No cyanosis or clubbing, Left BKA stump (no wounds), Right leg - edema, erythematous, small wound with stained dressing, no purulent drainage Genitourinary: No CVA tenderness, no suprapubic tenderness. Right groin wound with dressing stained with purulent drainage, some slough, no drainage expressed. Skin: Ulcers as noted above under Musculoskeletal and Genitourinary exam Neurologic: Drowsy but arousable to touch. Oriented to person and place only on arousal. No focal weakness, sensation grossly intact Altered mental status Unclear etiology Possibilities include sepsis from right leg cellulitis, wound infection Get wound culture, blood cultures UA negative for pyuria, esterase or nitrite Broad spectrum antibiotics with vanc and cefepime for now Get CT head Get ABG, NH3 level, UDS Cr increased from 1.18 on 11/11/2019 to 1.36 Continue IVF Monitor Cr Holding sedative meds Other plans as detailed above
--- NOTE | 2019-12-10 20:16 | CT Scan Report ---
HEAD CT NONCONTRAST CT DOSE: 1193.21 mGy.cm HISTORY: altered mental status TECHNIQUE: Multiaxial CT images of the head were performed without the use of intravenous contrast. A utomated exposure control was utilized for this study. A dose lowering technique was utilized adheri ng to the principles of ALARA. Comparison: None. Findings: There is a fluid level within the right maxillary sinus resulting in near complete opacific ation. This is consistent with acute sinusitis. The mastoid air cells are clear. The calvarium and sk ull base are intact. There is no mass, hematoma, midline shift, acute infarct. White matter hypodensi ty is nonspecific but suggestive of microvascular ischemic change. The ventricles and sulci demonstra te mild age-related involutional changes. There is an old small lacunar infarct within the right cere bellar hemisphere. Punctate calcification within the left sylvian fissure. Impression: No acute intracranial abnormality. Acute right maxillary sinusitis. ACT 112: Negative or not required by law. Electronically signed by: Sanjay Nielsen M.D. 12/10/2019 8:15 PM
[2019-12-10] MEDS ORDERED: CONSULT PHARMACY STA (20:35)
[2019-12-10] MEDS ORDERED: ALBUT/IPRATROP 3MG/0.5MG NEB 3 ML VIAL INH PRN (20:35)
[2019-12-10] MEDS ORDERED: CEFEPIME CONSULT ACTIVE PRN (20:43)
[2019-12-10] MEDS ORDERED: VANCOMYCIN CONSULT ACTIVE PRN (20:43)
[2019-12-10] MEDS ORDERED: VANCOMYCIN HCL 1,500 MG in SODIUM CHLORIDE 0.9% 500 ML IV ONE (21:00)
[2019-12-10] MEDS: ACETAMINOPHEN 325 MG TAB PO PRN (21:15)
[2019-12-10] MEDS: HEPARIN SOD 5,000 UNIT/0.5 ML VIAL SQ SCH (21:42)
[2019-12-10] MEDS: FERROUS GLUCONATE 324 MG TAB PO SCH (21:42)
[2019-12-10] MEDS: SODIUM CHLORIDE 0.9% 1000ML 1,000 ML IV SCH (22:33)
[2019-12-11] MEDS ORDERED: TRAMADOL HCL 50 MG TABLET PO STA (04:13)
[2019-12-11] MEDS: HEPARIN SOD 5,000 UNIT/0.5 ML VIAL SQ SCH ×3 (05:13→22:00)
[2019-12-11] MEDS: CEFEPIME 1,000 MG in SYRINGE 0 ML IV SCH ×2 (06:08→16:59)
--- NOTE | 2019-12-11 06:41 | Electrocardiogram Report ---
Test Reason : Blood Pressure : / mmHG Vent. Rate : 069 BPM Atrial Rate : 069 BPM P-R Int : 214 ms QRS Dur : 118 ms QT Int : 412 ms P-R-T Axes : 082 -63 076 degrees QTc Int : 441 ms Sinus rhythm with 1st degree A-V block Left anterior fascicular block Nonspecific T wave abnormality Abnormal ECG When compared with ECG of 06-NOV-2019 22:36, Premature ventricular complexes are no longer Present Confirmed by Graham Falk ([id number]) on 12/11/2019 6:41:38 AM Referred By: REFERRED SELF Confirmed By:Graham Falk
[2019-12-11 08:28] LABS: Creatinine Clr Calc Pharmacy 48.3 ml/min; Est GFR (African American) 74.6; Est GFR (Non-African American) 64.4
[2019-12-11] MEDS: PANTOprazole 40 MG TAB PO SCH (09:49)
[2019-12-11] MEDS: ATORVASTATIN 40 MG TAB PO SCH (09:49)
[2019-12-11] MEDS: ASPIRIN 81 MG ECTAB PO SCH (09:49)
[2019-12-11] MEDS: METOPROLOL SUCC 25MG EXT REL TAB PO SCH (09:49)
[2019-12-11] MEDS: MAGNESIUM OXIDE 400 MG TAB PO SCH (09:49)
[2019-12-11] MEDS: VITAMIN B COMPLEX TAB PO SCH (09:49)
[2019-12-11] MEDS: MULTIVITAMIN TAB PO SCH (09:49)
[2019-12-11] MEDS: OMEGA-3 (PURIFIED FISH OIL) 1 GM CAP PO SCH (09:49)
[2019-12-11] MEDS: LACTOBACILLUS ACIDOPHILUS (FLORANEX) TAB PO SCH (09:49)
[2019-12-11] MEDS: FOLIC ACID 1 MG TAB PO SCH (09:49)
[2019-12-11] MEDS: FERROUS GLUCONATE 324 MG TAB PO SCH ×3 (09:49→20:28)
[2019-12-11] MEDS: UMECLIDINIUM BROMIDE 62.5MCG/BLISTER 7 PUFFS/INHALER INH SCH (09:50)
[2019-12-11] MEDS: FLUTICASONE/VILANTEROL 100/25MCG 14 PUFFS/INHALER INH SCH (09:50)
[2019-12-11] MEDS: SODIUM CHLORIDE 0.9% 1000ML 1,000 ML IV SCH ×2 (10:07→21:59)
[2019-12-11] MEDS: VANCOMYCIN HCL 750 MG in SODIUM CHLORIDE 0.9% 250 ML IV SCH ×2 (11:11→22:48)
--- NOTE | 2019-12-11 11:51 | Pharmacy Report ---
Pharmacy Abx Initial Consult - Date of Service December 11, 2019 - Pharmacy Dosing Scope Date of Consult: 12/10/19 Consultation requested by: Tabby SLOAN Pharmacy is consulted to initiate vancomycin and cefepime IV dosing therapy, order appropriate labs and adjust drug dose/frequency. - Subjective The patient is a 69 year old F admitted on 12/10/19 18:05. - Objective Height: 5 ft Weight: 62.8 kg Vital Signs (Past 12hrs): Vital Signs Temp Pulse Resp BP Pulse Ox 12/11/19 07:04 37.6 C H 70 20 124/59 L 12/11/19 03:44 37.2 C 69 18 111/60 99 12/10/19 23:45 37.8 C H 62 18 111/63 92 Lab Results (24hrs): Laboratory Tests (24 Hours) 12/11/19 12/10/19 12/10/19 07:28 14:20 14:20 WBC 8.22 Neut # (Auto) 7.19 H Creatinine 0.91 D 1.36 H Est Cr Clr Drug Dosing 48.3 32.2 Micro Results: 12/10/19 18:50 Gram Stain - Final Groin 12/10/19 16:34 Aerobic Blood Culture - Pending Blood Anaerobic Blood Culture - Pending 12/10/19 16:46 Aerobic Blood Culture - Pending Blood Anaerobic Blood Culture - Pending - Risk Factors for Resistance * Hospitalization for 48 hours or more within the past 90 days (09/13/19) * 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 Patient underwent vascular intervention on 11/02/20. Purulent drainage noted from right groin incision site w/ erythema. Of note - patient also has history of MRSA of the right foot. Relevant PMH includes rheumatoid arthritis, type 2 DM, CHF, CAD, and PAD. Dramatic improvement in SCr overnight (1.36 mg/dL -> 0.91 mg/dL, which appears to be baseline). Groin culture is growing Staphylococcus aureus. Blood cultures x 2 pending. Plan Vancomycin IV * Estimated PK Parameters: Vd 0.7 L/kg, Doron 0.044 hr-1, t1/2 15 hr * Loading dose: 1500 mg (24 mg/kg) * Maintenance dose: 750 mg IV (12 mg/kg) every 12 hours * Will utilize AUC-based dosing to achieve AUC:TEDDY greater than 400 * Trough ordered for 12/12/19 prior to 4th dose Cefepime * Target dose for SSTI: 2 g IV q12h * 1 g IV q12h - appropriate based on estimated CrCl of 48 mL/min Pharmacy will continue to follow and will adjust dose/frequency as necessary. Thank you.
[2019-12-11] MEDS: GABAPENTIN 400 MG CAP PO SCH ×2 (13:39→20:28)
[2019-12-11] MEDS: TRAMADOL HCL 50 MG TABLET PO PRN ×2 (13:39→21:59)
[2019-12-11 14:54] LABS: Appearance Synovial Fluid CLOUDY; Color Synovial Fluid YELLOW; Mononuclear WBC Synovial 17.7 %; Polynuclear WBC Synovial 82.3 %; RBC Synovial Fluid (A) < 3000 /uL; Source Synovial Fluid KNEE; WBC Synovial Fluid (A) 10966 /uL (0-200)
--- NOTE | 2019-12-11 16:03 | Consultation Report ---
DATE OF CONSULTATION: 12/11/2019 HISTORY OF PRESENT ILLNESS: I was asked to see the patient regarding her right knee. She is status post a arterial bypass in her right lower extremity last month by Dr. Park. She was admitted to the hospital. She has had fever and may have an infection involving her vascular surgery wound. The patient was recently diagnosed with rheumatoid arthritis and was to start methotrexate. She had been doctoring with an infected toe. currently admitted with fever, cellulitis of the right leg, possible wound infection. Recent onset of right elbow pain. No injury. Pain over the tip of the elbow. Her right knee has bothered her chronically and has not really any worse pain adhikari than it has been in the past. There has been no acute injury; however, the knee is more swollen than it typically is. She notes chronic crepitation. Her health history is noted and reviewed. ALLERGIES: SHE HAS ALLERGIES TO PENICILLIN AND IODINATED CONTRAST. MEDICAL PROBLEMS: Include kidney disease, COPD, RA, peripheral artery disease, cirrhosis of the liver, type 2 diabetes, MRSA PHYSICAL EXAMINATION: Her vital signs are noted. She has had a fever. Exam of the right elbow reveals about -10 of extension and flexion to 125. She has pain with resisted extension, although she can extend against gravity and against resistance with 4/5 strength limited by pain. There is a lump over the proximal ulna, which is chronic since September. This could be a rheumatoid nodule. There is a trace amount of fluid in the olecranon bursa, which is exquisitely tender, not indurated or red. Her biceps and triceps appear to be intact and she has full forearm rotation. Arthritic deformities of the hand, but intact median, radial and ulnar motor and sensory functions with capillary refill less than 2 seconds and 1+ radial pulse. Right knee exam shows range of motion 0/10/90. She does not have any palpable pulses, but her foot is warm with good capillary refill. Bandage on the right calf. There is erythema around this area, which I presume is her previous surgical incision. In regards to the knee, there is no erythema or induration. Cruciates and collaterals are intact and there is no discrete tenderness to palpation. She is able to do a straight leg raise and has normal knee strength. There was a moderate right knee effusion. White count normal. X-rays of the elbow show soft tissue swelling but no fracture or dislocation. Knee films show chondrocalcinosis and significant osteoarthritis involving the lateral compartment. There is no fracture and no significant effusion noted. IMPRESSION: 1. Rheumatoid arthritis. 2. Chronic obstructive pulmonary disease. 3. History of methicillin-resistant Staphylococcus aureus. 4. Peripheral artery disease. 5. Right elbow pain. 6. Right knee pain. PLAN: The elbow I think is simple olecranon bursitis, at this point low suspicion for infection or mechanical dysfunction. Would recommend avoiding pressure on the elbow and using heat or ice. Right knee probably inflammation, although given the history, infection is a possibility. She does have a known history of chondrocalcinosis as Dr. Fonseca has told her. Additionally, she does have calcification in the knee consistent with chondrocalcinosis. Knee will be aspirated. Make her n.p.o. after midnight just in case she does have an infection and need surgery. This is discussed. She is on vancomycin. Hold her blood thinner. We will continue to follow. The right knee is aspirated using sterile technique. A preprocedural timeout is performed, witnessed by the nurse. Treatment options, risks, benefits, verbal consent were done. The knee was aspirated of 20 mL of slightly opaque, but otherwise normal-appearing viscous joint fluid. This was then sent for crystal analysis, Gram stain, aerobic and anaerobic culture, cell count with differential.
--- NOTE | 2019-12-11 16:50 | Hospitalist Progress Note ---
Date of Service December 11, 2019 Assessment & Plan (1) Cellulitis of right lower extremity: Cellulitis RLE with drainage from surgical wounds. Does not appear to be septic. Wound culture growing Stap aureus, sens pending (has hx MRSA). Continue IV vancomycin and cefepime. (2) S/P vascular surgery: S/P right common femoral endarterectomy vein patch graft, right femoral to posterior tibial artery in situ bypass 11/02/19. Consult Vascular Surgery to follow. (3) Knee pain: Need to rule out septic arthritis. Consult Ortho. (4) Metabolic encephalopathy: Altered mental status at time of admission. No acute PLANNING ANALYST findings on CT. Probable metabolic encephalopathy / delirium from infection. (5) Sinusitis, acute, maxillary: Right maxillary sinusitis noted on CT head. Has some sinus pain and drainage. Continue antibiotics. Add nasal saline spray. (6) CAD (coronary artery disease): Stable. Continue aspirin, metoprolol, statin. (7) Chronic combined systolic and diastolic CHF (congestive heart failure): Compensated. No JUAN JOSE or ARB due to CKD. Continue metoprolol succinate. Diurese as needed. (8) HTN (hypertension): Continue metoprolol. (9) COPD (chronic obstructive pulmonary disease): Pulmonary status stable. (10) Cirrhosis of liver: LFT's OK except for elevated alk phos. NH3 27. (11) CKD (chronic kidney disease), stage III: Serum creatinine 1.36 at time of admission. Creatinine today = 0.91. Follow. (12) Rheumatoid arthritis: Need to hold MTX due to active infection. (13) Diabetes mellitus type 2, diet-controlled: Glucose at time of admission 118. Check Hgb A1C. Insulin coverage as needed. (14) DVT prophylaxis: SQ heparin. (15) Discharge planning issues: Discharge disposition to be determined. Family Medicine follow-up with Dr. Dudley. Subjective Recheck for multiple problems. Patient seen in their room around 1050. at bedside. Admitted yesterday with confusion, drainage from RLE wounds, and worsening erythema RLE. Febrile last night. Confusion much better today. reports that right leg erythema improved over past 24 hrs. Pt c/o severe right leg and knee pain. Review of Systems: Constitutional- as noted above. Cardiac- no chest pain. Pulmonary- no cough or SOB. GI- no nausea, vomiting, diarrhea, melena, hematochezia. - no urinary symptoms. Otherwise, as noted above. Physical Exam Constitutional: no acute distress Eyes: + anicteric sclerae Respiratory: no respiratory distress Auscultation: + wheezes Cardiovascular: Rate/Rhythm: regular rate and regular rhythm Heart Sounds: + murmur (III/ sys murmur at base); no gallop and no cardiac rub Vessels: no JVD Extremities: + edema (trace right pretibial) Gastrointestinal (Abdomen): normal bowel sounds, soft, nontender, no hepatosplenomegaly Musculoskeletal: Extremities: + amputation noted (left BKA) and + foot abnormality (Charcot deformity right foot); + extremities abnormal to inspection (effusion / tenderness right knee) and no cyanosis Skin: + rash (erythema right medial thigh and right leg) and + wound (R groin incision w small amount purulent drainage; R medial calf incision) Psychiatric: Orientation: alert and oriented x 3 (mild confusion) Results & Data Vital Signs (Past 12 Hours) Vital Signs Temp Pulse Pulse Resp BP Pulse Ox 12/11/19 15:47 37.5 C 61 19 107/53 L 95 12/11/19 14:51 61 12/11/19 07:04 37.6 C H 70 20 124/59 L Laboratory Results Laboratory Results - last 24 hr 12/10/19 12/10/19 12/10/19 18:26 19:26 20:12 ABG pH 7.47 H Cancelled ABG pCO2 39 Cancelled ABG pO2 55 L Cancelled ABG HCO3 28 H Cancelled ABG O2 Saturation 88.0 L Cancelled ABG Base Excess 3.8 H Cancelled Lion Test POS Cancelled Barometric Pressure 734.4 Cancelled Oxygen Given ROOM AIR Cancelled Creatinine Est Cr Clr Drug Dosing Est GFR ( Amer) Est GFR (Non-Af Amer) POC Glucose 112 H Ammonia Synovial Source Synovial Color Synovial Appearance Synovial WBC Synovial RBC Synovial Polynuclear % Synovial Mononuclear % Synovial Crystals 12/10/19 12/11/19 12/11/19 22:36 07:28 14:00 ABG pH ABG pCO2 ABG pO2 ABG HCO3 ABG O2 Saturation ABG Base Excess Lion Test Barometric Pressure Oxygen Given Creatinine 0.91 D Est Cr Clr Drug Dosing 48.3 Est GFR ( Amer) 74.6 Est GFR (Non-Af Amer) 64.4 POC Glucose Ammonia 27.3 Synovial Source KNEE Synovial Color YELLOW Synovial Appearance CLOUDY Synovial WBC 48424 H Synovial RBC < 3000 Synovial Polynuclear % 82.3 Synovial Mononuclear % 17.7 Synovial Crystals 12/11/19 14:00 ABG pH ABG pCO2 ABG pO2 ABG HCO3 ABG O2 Saturation ABG Base Excess Lion Test Barometric Pressure Oxygen Given Creatinine Est Cr Clr Drug Dosing Est GFR ( Amer) Est GFR (Non-Af Amer) POC Glucose Ammonia Synovial Source Synovial Color Synovial Appearance Synovial WBC Synovial RBC Synovial Polynuclear % Synovial Mononuclear % Synovial Crystals Pending Microbiology 12/10/19 18:50 Groin Gram Stain - Final 12/10/19 18:50 Groin Wound Culture - Preliminary Staphylococcus aureus
[2019-12-11] MEDS ORDERED: SODIUM CHLORIDE 0.65% NA SOLN 45 ML (OCEAN) ONE (18:11)
[2019-12-11] MEDS: ACETAMINOPHEN 325 MG TAB PO PRN (20:24)
[2019-12-12] MEDS: HEPARIN SOD 5,000 UNIT/0.5 ML VIAL SQ SCH ×3 (04:54→20:52)
[2019-12-12] MEDS: CEFEPIME 1,000 MG in SYRINGE 0 ML IV SCH (05:37)
[2019-12-12 07:49] LABS: Hematocrit (blood only) 33.8 % (37-47); Hemoglobin 10.9 g/dL (12.0-16.0); Mean Corpuscular Hemoglobin 28.6 pg (25-34); Mean Corpuscular Hgb Conc 32.2 g/dL (32-36); Mean Corpuscular Volume 88.7 fL (80-100); Mean Platelet Volume 9.9 fL (7.4-10.4); Platelet Count 142 K/uL (130-400); RDW Coefficient of Variation 18.1 % (11.5-14.5); Red Blood Count 3.81 M/uL (4.2-5.4); White Blood Count 4.61 K/uL (4.8-10.8)
[2019-12-12] MEDS: FERROUS GLUCONATE 324 MG TAB PO SCH ×3 (07:55→20:47)
[2019-12-12] MEDS: METOPROLOL SUCC 25MG EXT REL TAB PO SCH (07:55)
[2019-12-12] MEDS: MULTIVITAMIN TAB PO SCH (07:55)
[2019-12-12] MEDS: PANTOprazole 40 MG TAB PO SCH (07:56)
[2019-12-12] MEDS: ATORVASTATIN 40 MG TAB PO SCH (07:57)
[2019-12-12] MEDS: VITAMIN B COMPLEX TAB PO SCH (07:57)
[2019-12-12] MEDS: FOLIC ACID 1 MG TAB PO SCH (07:57)
[2019-12-12] MEDS: FLUTICASONE/VILANTEROL 100/25MCG 14 PUFFS/INHALER INH SCH (07:59)
[2019-12-12] MEDS: ASPIRIN 81 MG ECTAB PO SCH (07:59)
[2019-12-12] MEDS: MAGNESIUM OXIDE 400 MG TAB PO SCH (07:59)
[2019-12-12] MEDS: GABAPENTIN 400 MG CAP PO SCH (07:59)
[2019-12-12] MEDS: LACTOBACILLUS ACIDOPHILUS (FLORANEX) TAB PO SCH (08:00)
[2019-12-12] MEDS: UMECLIDINIUM BROMIDE 62.5MCG/BLISTER 7 PUFFS/INHALER INH SCH (08:00)
[2019-12-12] MEDS: OMEGA-3 (PURIFIED FISH OIL) 1 GM CAP PO SCH (08:01)
[2019-12-12 08:37] LABS: BUN Creatinine Ratio 33.5 (10-20); Calcium 8.6 mg/dl (8.5-10.1); Creatinine Clr Calc Pharmacy 59.7 ml/min; Est GFR (African American) 95.8; Est GFR (Non-African American) 82.7; Potassium 4.3 mmol/L (3.5-5.1)
[2019-12-12] MEDS ORDERED: VANCOMYCIN TROUGH ONE (09:30)
[2019-12-12] MEDS: VANCOMYCIN HCL 750 MG in SODIUM CHLORIDE 0.9% 250 ML IV SCH ×2 (09:46→22:38)
[2019-12-12] MEDS: SODIUM CHLORIDE 0.9% 1000ML 1,000 ML IV SCH ×2 (10:00→22:38)
--- NOTE | 2019-12-12 10:58 | Pharmacy Report ---
Pharmacy Abx Dose Short Note - Date of Service December 12, 2019 - Assessment & Plan Assessment 69 year old F receiving vancomycin and cefepime for treatment of right lower extremity cellulitis. Drainage noted from surgical wounds s/p vascular surgery. Groin culture growing MRSA (resistant to clindamycin). Patient also complains of sinus pain/drainage and being treated for maxillary sinusitis (cefepime de- escalated to cefuroxime today) Day # 3 of antimicrobial therapy. Plan Vancomycin * Patient meets criteria for vancomycin AUC dosing nomogram * AUC/TEDDY is the preferred PK/PD target for vancomycin * Target AUC/TEDDY = 400-600 * Trough level of 13.4 mcg/mL is predicted to achieve target AUC/TEDDY * AUC guided dosing is effective and associated with decreased risk of nephrotoxicity * Trough levels poorly correlate with AUC/TEDDY and trough monitoring has been associated with increased risk of nephrotoxicity Cefuroxime PO * 500 mg BID - dose appropriate for indication/renal function Pharmacy will continue to follow and will adjust dose/frequency as necessary. Thank you.
[2019-12-12] MEDS: GABAPENTIN 800 MG TAB PO SCH ×2 (13:25→20:46)
[2019-12-12] MEDS: TRAMADOL HCL 50 MG TABLET PO PRN ×2 (13:25→22:37)
--- NOTE | 2019-12-12 13:30 | Ultrasound Report ---
US arterial duplex LE RT HISTORY: 69 years-old Female post right leg insitu bypass right leg pain with recent bypass COMPARISON: None available TECHNIQUE: Multiple real-time sonographic images of the right lower extremity soft tissues and arteri al structures were obtained assessing grayscale appearance, color and spectral flow FINDINGS: Bandaging material within the right groin and right calf that the study. ABIs could also not be condu cted. Hypoechoic complex collection of the right inguinal soft tissues measures up to 4.7 x 1.3 x 2.2 cm wi thout internal flow suggestive of a probable hematoma. Patent graft of the right lower extremity with biphasic waveforms. No significantly elevated peak systolic velocities identified to suggest signifi cant stenosis. Monophasic waveforms are noted within the popliteal, posterior tibial, peroneal and an terior tibial arteries with multiple areas of blunted waveforms. Subcutaneous edema noted. No arteria l occlusion identified. IMPRESSION: 1. Limited study as above with patent right lower extremity graft. 2. Probable hematoma of the right inguinal tissues, 4.7 cm. ACT 112: Negative or not required by law. The above report was generated using voice recognition software. It may contain grammatical, syntax o r spelling errors. Electronically signed by: Trever Salgado M.D. 12/12/2019 1:28 PM
--- NOTE | 2019-12-12 14:02 | Progress Note ---
DATE: 12/12/2019 The right knee feels better. Range today is 0/5/95. She has a small amount of fluid within the knee and is able to do a straight leg raise. The right elbow still bothers her, although she has very good range of motion and trace bursal fluid. There is slight tenderness present. We will apply ice to both areas. Hold on cortisone injection given the concern for potential infection. Knee aspiration. Crystals are pending and likely will not be back tomorrow, but I suspect that this is related to gout, pseudogout or arthritis. The culture is no growth to date and the white blood cell count within the fluid was about 10,000. We will continue to monitor. Can continue her diet and DVT prophylaxis subcutaneous heparin.
--- NOTE | 2019-12-12 16:14 | Hospitalist Progress Note ---
Date of Service December 12, 2019 Assessment & Plan (1) Cellulitis of right lower extremity: Cellulitis RLE with drainage from surgical wounds. Does not appear to be septic. Wound culture from right groin growing MRSA. Clinically improved. Temp coming down. Procalcitonin this morning 0.09. Continue IV vancomycin. (2) S/P vascular surgery: S/P right common femoral endarterectomy vein patch graft, right femoral to posterior tibial artery in situ bypass 11/02/19. Vascular Surgery consulted to follow. (3) Knee pain: Severe right knee pain with effusion. May be secondary to septic or inflammatory arthritis. Ortho consulted. Arthrocentesis performed. WBC - 10,966 crystals - pending gram stain - few WBC's, no organisms C&S - pending (4) Metabolic encephalopathy: Altered mental status at time of admission. No acute DIRECTOR GEOPHYSICAL LABORATORY findings on CT. Probable metabolic encephalopathy / delirium from infection. (5) Sinusitis, acute, maxillary: Right maxillary sinusitis noted on CT head. Has some sinus pain and drainage. Initially received IV vancomycin and cefepime. Transition to PO Rx with cefuroxime. (6) CAD (coronary artery disease): Stable. Continue aspirin, metoprolol, statin. (7) Chronic combined systolic and diastolic CHF (congestive heart failure): Compensated. No JUAN JOSE or ARB due to CKD. Continue metoprolol succinate. Diurese as needed. (8) HTN (hypertension): Continue metoprolol. (9) COPD (chronic obstructive pulmonary disease): Pulmonary status stable. (10) Cirrhosis of liver: LFT's OK except for elevated alk phos. NH3 27. (11) CKD (chronic kidney disease), stage III: Serum creatinine 1.36 at time of admission. Acute kidney injury secondary to infection. Creatinine today = 0.74. Follow. (12) Rheumatoid arthritis: Need to hold MTX due to active infection. (13) Diabetes mellitus type 2, diet-controlled: Glucose at time of admission 118. Check Hgb A1C. FBS today = 93. Insulin coverage as needed. (14) DVT prophylaxis: SQ heparin. (15) Discharge planning issues: Discharge disposition to be determined. Family Medicine follow-up with Dr. Dudley. Subjective Recheck for multiple problems. Patient seen in their room around 1110. Feels better. Low-grade fever last night, but not as high as the night before. Right lower extremity/right knee pain significantly better. Sinus pressure and cough improved. Review of Systems: Constitutional- as noted above. Cardiac- no chest pain. Pulmonary- no cough or SOB. GI- no nausea, vomiting, diarrhea, melena, hematochezia. - no urinary symptoms. Otherwise, as noted above. Physical Exam Constitutional: no acute distress Eyes: + anicteric sclerae Respiratory: no respiratory distress Auscultation: + wheezes Cardiovascular: Rate/Rhythm: regular rate and regular rhythm Heart Sounds: + murmur (III/ sys murmur at base); no gallop and no cardiac rub Vessels: no JVD Extremities: + edema (trace right pretibial) Gastrointestinal (Abdomen): normal bowel sounds, soft, nontender, no hepatosplenomegaly Musculoskeletal: Extremities: + amputation noted (left BKA) and + foot abnormality (Charcot deformity right foot); + extremities abnormal to inspection (effusion / tenderness right knee, improved) and no cyanosis Skin: + rash (erythema right medial thigh and right leg, improved) and + wound (R groin incision bandaged) Psychiatric: Orientation: alert and oriented x 3 (mild confusion) Results & Data Vital Signs (Past 12 Hours) Vital Signs Temp Pulse Pulse Resp BP BP Pulse Ox 12/12/19 07:59 37.1 C 63 19 122/64 95 12/12/19 04:48 37.2 C 62 18 92/48 L 94 12/12/19 02:33 67 12/11/19 22:54 36.9 C 65 18 107/53 L 93 Laboratory Results 12/12/19 06:59 12/12/19 06:59 Microbiology 12/10/19 18:50 Groin Gram Stain - Final 12/10/19 18:50 Groin Wound Culture - Final Staph aureus MRSA 12/11/19 14:00 Joint Fluid/Space (Synovial) Gram Stain - Final 12/11/19 14:00 Joint Fluid/Space (Synovial) Aerobic and Anaerobic Culture - Preliminary No growth to date. 12/10/19 16:46 Blood Aerobic Blood Culture - Preliminary No growth in Aerobic bottle after 24 hours. 12/10/19 16:46 Blood Anaerobic Blood Culture - Preliminary No growth in Anaerobic bottle after 24 hours. 12/10/19 16:34 Blood Aerobic Blood Culture - Preliminary No growth in Aerobic bottle after 24 hours. 12/10/19 16:34 Blood Anaerobic Blood Culture - Preliminary No growth in Anaerobic bottle after 24 hours.
[2019-12-12] MEDS: cefUROXime axetil 500 MG TAB PO SCH (20:46)
[2019-12-12] MEDS: ACETAMINOPHEN 325 MG TAB PO PRN (23:56)
[2019-12-13] MEDS: HEPARIN SOD 5,000 UNIT/0.5 ML VIAL SQ SCH ×4 (05:37→20:44)
[2019-12-13 08:20] LABS: BUN Creatinine Ratio 31.8 (10-20); Calcium 8.6 mg/dl (8.5-10.1); Creatinine Clr Calc Pharmacy 54.6 ml/min; Est GFR (African American) 85.9; Est GFR (Non-African American) 74.1
[2019-12-13] MEDS: GABAPENTIN 800 MG TAB PO SCH ×3 (09:12→20:43)
[2019-12-13] MEDS: cefUROXime axetil 500 MG TAB PO SCH ×2 (09:12→20:42)
[2019-12-13] MEDS: FERROUS GLUCONATE 324 MG TAB PO SCH ×3 (09:12→20:45)
[2019-12-13] MEDS: ASPIRIN 81 MG ECTAB PO SCH (09:13)
[2019-12-13] MEDS: VITAMIN B COMPLEX TAB PO SCH (09:13)
[2019-12-13] MEDS: ATORVASTATIN 40 MG TAB PO SCH (09:13)
[2019-12-13] MEDS: MAGNESIUM OXIDE 400 MG TAB PO SCH (09:13)
[2019-12-13] MEDS: MULTIVITAMIN TAB PO SCH (09:13)
[2019-12-13] MEDS: LACTOBACILLUS ACIDOPHILUS (FLORANEX) TAB PO SCH (09:13)
[2019-12-13] MEDS: PANTOprazole 40 MG TAB PO SCH (09:13)
[2019-12-13] MEDS: METOPROLOL SUCC 25MG EXT REL TAB PO SCH (09:14)
[2019-12-13] MEDS: FOLIC ACID 1 MG TAB PO SCH (09:15)
[2019-12-13] MEDS: OMEGA-3 (PURIFIED FISH OIL) 1 GM CAP PO SCH (09:15)
[2019-12-13] MEDS: FLUTICASONE/VILANTEROL 100/25MCG 14 PUFFS/INHALER INH SCH (09:16)
[2019-12-13] MEDS: UMECLIDINIUM BROMIDE 62.5MCG/BLISTER 7 PUFFS/INHALER INH SCH (09:17)
[2019-12-13] MEDS: VANCOMYCIN HCL 750 MG in SODIUM CHLORIDE 0.9% 250 ML IV SCH ×2 (09:33→22:13)
[2019-12-13 09:47] LABS: Estimated Average Glucose 100 mg/dl; Hemoglobin A1C 5.1 % (4.5-5.6)
--- NOTE | 2019-12-13 09:48 | Consultation ---
Date of Consultation December 13, 2019 Assessment & Plan (1) Infected surgical wound: RLE lower leg surgical wound appears infected, with purulent drainage. Discussed with Dr Simmons, recommends pt have surgical debridement in OR tomorrow. Continue abx per medicine. Continue frequent dressing changes. Patient was seen, examined, and chart reviewed. Agree with exam and treatment plan of the Vascular PA. Present on Admission?: Yes History of Present Illness Reason for Consultation: RLE cellulitis Attending Physician: Monroe Castillo MD History of Present Illness 69 yo f with multiple medical problems, approx 5 weeks s/p RLE fem endrterectomy and fem-distal in situ bypass, seen today after admission for cellulitis. Pt well known to Dr Simmons for RLE revascularization in 10/2019. Pt states she was very confused and had a high fever, so family and home nursing sent her to [facility] ED for eval. States she feels much improved since being treated here. Notes increased drainage from RLE lower leg wound, as well as increased edema. Denies chest pain, SOB, abd pain, N/V, chills, rest pain, other complaints. Allergies Allergy/AdvReac Type Severity Reaction Status Date / Time Penicillins Allergy Unknown hives/upset Verified 12/10/19 17:59 stomach/diarrhea Iodinated Contrast Media AdvReac Unknown severe Verified 12/10/19 17:59 [Iodinated Contrast- Oral vomiting and IV Dye] oxycodone [From Percocet] AdvReac Unknown vomiting Verified 12/10/19 17:59 Home Medications Home Medications Medication Instructions Recorded Confirmed Type aspirin 81 mg tablet,delayed 81 mg PO DAILY 07/22/18 12/10/19 History release citalopram 40 mg tablet 40 mg PO DAILY 07/22/18 12/10/19 History gabapentin 800 mg tablet 800 mg PO TID tab 07/22/18 12/10/19 History omega 4-fhh-meh-fish oil 1,000 mg 1 cap PO DAILY cap 07/22/18 12/10/19 History (120 mg-180 mg) capsule Symbicort 2 puff INHALATION BID 03/01/19 12/10/19 History atorvastatin 80 mg PO DAILY 03/01/19 12/10/19 History ferrous gluconate 324 mg PO TID 03/01/19 12/10/19 History folic acid 1 mg PO DAILY 03/01/19 12/10/19 History ipratropium-albuterol 3 ml INHALATION Q6H PRN 03/01/19 12/10/19 History metoprolol succinate 12.5 mg PO DAILY 03/01/19 12/10/19 History multivitamin 1 tab PO DAILY 03/01/19 12/10/19 History omeprazole 40 mg PO DAILY 03/01/19 12/10/19 History vitamin B complex 1 tab PO DAILY 03/01/19 12/10/19 History furosemide [Lasix] 40 mg PO BID 04/05/19 12/10/19 History magnesium oxide 400 mg PO DAILY 04/05/19 12/10/19 History nitroglycerin 0.4 mg SUBLINGUAL UD PRN 04/05/19 12/10/19 History tramadol 50 mg PO BID PRN 07/15/19 12/10/19 History tiotropium bromide 18 mcg capsule 1 cap INH DAILY 09/02/19 12/10/19 History with inhalation device spironolactone 100 mg PO DAILY 09/13/19 12/10/19 History ibuprofen 600 mg PO UD PRN 10/25/19 12/10/19 History Lactobacillus rhamnosus GG 1 cap PO DAILY #30 cap 11/09/19 12/10/19 Rx [Culturelle] colchicine [Colcrys] 0.6 mg PO DAILY 12/10/19 12/10/19 History fluticasone propionate 1 spray INTRANASAL DAILY 12/10/19 12/10/19 History methotrexate sodium 15 mg SUBCUT WK 12/10/19 12/10/19 History Patient History Medical History Acid reflux Aortic stenosis Aortic valve regurgitation CAD (coronary artery disease) (Chronic) 2004 -PCI to unknown vessel Charcot foot due to diabetes mellitus (Chronic) Chronic combined systolic and diastolic CHF (congestive heart failure) (Chronic) EF 40 to 44%, grade 2 diastolic dysfunction Cirrhosis of liver "UNDETERMINED ORIGIN" CKD (chronic kidney disease), stage III (Chronic) pt denies having any problems with kidneys. COPD (chronic obstructive pulmonary disease) (Chronic) Diabetes mellitus type 2, diet-controlled Diabetic peripheral neuropathy (Chronic) History of alcohol abuse History of anxiety History of depression History of endometriosis "STAGE 1 GRADE 1" History of sleep apnea HX CPAP HTN (hypertension) Hypercholesteremia SARANYA (iron deficiency anemia) (Chronic) Impaired fasting glucose A1C 6/1% 05/2019 Infected surgical wound Ischemic cardiomyopathy (Chronic) EF 40-44% Mitral regurgitation PAD (peripheral artery disease) (Chronic) Rheumatoid arthritis Sleep apnea Snores Valvular heart disease (Chronic) Surgical History History of anesthesia reaction PT REPORTS URINARY RETENTION POST OP, USUALLY REQUIRING STRAIGHT CATH History of bilateral carotid endarterectomy (Chronic) History of cardiac cath 2004 ..TOLD HAD 2 LA'S - STENT X1 History of cholecystectomy (Chronic) History of colonoscopy History of hysterectomy (Chronic) supracervical History of left below knee amputation (Chronic) History of lumbar discectomy S/P vascular surgery 11/02/2020-right common femoral endarterectomy, right femoral and posterior tibial bypass Family History Father Family history of diabetes mellitus Family history of COPD (chronic obstructive pulmonary disease) Sister Breast cancer Social History Preferred Language: Azeri Communication Ability: Effective Visual Impairment: Limited Hearing Ability: Normal [employer] Required: No Beliefs That Will Affect Care: None marital status: Current Living Situation: Spouse current occupational status: disabled Feels Safe at Home: Yes Safety Concerns: Feels Safe At This Time Smoking Status: Light tobacco smoker Tobacco Type: cigarettes ; Cigarettes Per Day: < 5 ; Second Hand Exposure: Yes ; Hx Alcohol Use: No Hx Substance Use: No Review of Systems Review of Systems: All systems reviewed & are unremarkable except as noted in HPI & below Physical Exam Constitutional: WD/WN, vitals as above cooperative and comfortable; not in distress Eyes: PERRL, conjunctivae normal, anicteric sclerae ENMT: external ear and nose normal, oropharynx normal Ears: no hearing impairment Neck: trachea midline, no thyromegaly Respiratory: normal respiratory effort; no respiratory distress Auscultation: + diminished lung sounds Cardiovascular: Rate/Rhythm: regular rate and regular rhythm Vessels: posterior tibial pulses present (LLE AKA, RLE palpable) and dorsalis pedis p ulses present (LLE AKA, RLE palpable); + abnormal peripheral pulses Extremities: normal capillary refill and + edema Gastrointestinal (Abdomen): normal bowel sounds, soft, nontender, no hepatosplenomegaly Musculoskeletal: no cyanosis or clubbing, extremities motor strength 5/5 (LLE AKA) Skin: + wound (R groin healthy granulation, minimal slough. ) and + erythema (RLE mid swan to foot, with confluent erythema and warmth. ) RLE lower leg wound with open area, and purulent drainage noted. Maceration noted as well. Neurologic: moves all extremities; no focal motor deficits and not confused Psychiatric: A+Ox3, euthymic affect Results & Data Vital Signs (Past 12 Hours) Vital Signs Temp Pulse Pulse Pulse Resp BP BP 12/13/19 07:55 37.1 C 66 19 105/59 L 12/13/19 03:50 37.3 C 75 16 107/64 12/13/19 02:25 83 12/12/19 23:14 38.6 C H 82 18 122/61 Pulse Ox 12/13/19 07:55 94 12/13/19 03:50 91 12/13/19 02:25 12/12/19 23:14 93
[2019-12-13] MEDS: SODIUM CHLORIDE 0.9% 1000ML 1,000 ML IV SCH (10:40)
[2019-12-13] MEDS ORDERED: COLCHICINE 0.6 MG TAB PO ONE (12:08)
[2019-12-13] MEDS ORDERED: COLCHICINE 0.6 MG TAB PO SCH (12:15)
--- NOTE | 2019-12-13 13:24 | Anesthesiology Consultation ---
Date of Service December 13, 2019 Assessment & Plan (1) Encounter for pre-operative examination: Chart Review Chart Review: entry level paralegal initiated History Surgery Operation Date: 12/14/19 09:20 Proposed Procedures p Right Leg Wound Debridement, Possible Wound Vac Application - Elijah Park MD Height/Weight Height: 5 ft Weight: 63.6 kg Allergies Allergy/AdvReac Type Severity Reaction Status Date / Time Penicillins Allergy Unknown hives/upset Verified 12/10/19 17:59 stomach/diarrhea Iodinated Contrast Media AdvReac Unknown severe Verified 12/10/19 17:59 [Iodinated Contrast- Oral vomiting and IV Dye] oxycodone [From Percocet] AdvReac Unknown vomiting Verified 12/10/19 17:59 Medications Home Medications Medication Instructions Recorded Confirmed Last Taken aspirin 81 mg tablet,delayed 81 mg PO DAILY 07/22/18 12/10/19 11/01/19 08:30 release citalopram 40 mg tablet 40 mg PO DAILY 07/22/18 12/10/19 11/01/19 21:30 gabapentin 800 mg tablet 800 mg PO TID tab 07/22/18 12/10/19 11/02/19 04:00 omega 0-xiq-tdt-fish oil 1,000 mg 1 cap PO DAILY cap 07/22/18 12/10/19 5 Days Ago (120 mg-180 mg) capsule ~10/28/19 Symbicort 2 puff INHALATION BID 03/01/19 12/10/19 11/02/19 04:00 atorvastatin 80 mg PO DAILY 03/01/19 12/10/19 11/01/19 21:30 ferrous gluconate 324 mg PO TID 03/01/19 12/10/19 11/01/19 21:30 folic acid 1 mg PO DAILY 03/01/19 12/10/19 11/01/19 08:30 ipratropium-albuterol 3 ml INHALATION Q6H PRN 03/01/19 12/10/19 11/02/19 04:00 metoprolol succinate 12.5 mg PO DAILY 03/01/19 12/10/19 11/01/19 18:30 multivitamin 1 tab PO DAILY 03/01/19 12/10/19 11/01/19 08:30 omeprazole 40 mg PO DAILY 03/01/19 12/10/19 11/02/19 04:00 vitamin B complex 1 tab PO DAILY 03/01/19 12/10/19 11/01/19 08:30 furosemide [Lasix] 40 mg PO BID 04/05/19 12/10/19 11/01/19 17:00 magnesium oxide 400 mg PO DAILY 04/05/19 12/10/19 2 Days Ago ~10/31/19 nitroglycerin 0.4 mg SUBLINGUAL UD PRN 04/05/19 12/10/19 06/14/19 tramadol 50 mg PO BID PRN 07/15/19 12/10/19 1 Week Ago ~10/26/19 tiotropium bromide 18 mcg capsule 1 cap INH DAILY 09/02/19 12/10/19 11/01/19 12:30 with inhalation device spironolactone 100 mg PO DAILY 09/13/19 12/10/19 11/01/19 08:30 ibuprofen 600 mg PO UD PRN 10/25/19 12/10/19 11/01/19 18:30 Lactobacillus rhamnosus GG 1 cap PO DAILY #30 cap 11/09/19 12/10/19 Unknown [Culturelle] colchicine [Colcrys] 0.6 mg PO DAILY 12/10/19 12/10/19 Unknown fluticasone propionate 1 spray INTRANASAL DAILY 12/10/19 12/10/19 Unknown methotrexate sodium 15 mg SUBCUT WK 12/10/19 12/10/19 Unknown Active Medications Generic Name Dose Route Start Last Admin Trade Name Freq PRN Reason Stop Dose Admin Acetaminophen 650 mg 12/10/19 20:35 12/12/19 23:56 Tylenol PO 01/09/20 20:34 650 mg Q4H PRN Administration Pain or Fever Albuterol 3 ml 12/10/19 20:35 12/12/19 21:05 Duoneb INH 01/09/20 20:34 3 ml Q6H PRN Administration Shortness Of Breath Or Wheezing Aspirin 81 mg 12/11/19 09:00 12/13/19 09:13 Ecotrin Ectab PO 01/10/20 08:59 81 mg DAILY RAFY Administration Atorvastatin Calcium 80 mg 12/11/19 09:00 12/13/19 09:13 Lipitor PO 01/10/20 08:59 80 mg DAILY RAFY Administration Cefuroxime Axetil 500 mg 12/12/19 21:00 12/13/19 09:12 Ceftin PO 12/22/19 20:59 500 mg BID RAFY Administration Ferrous Gluconate 324 mg 12/10/19 21:00 12/13/19 09:12 Ferrous Gluconate PO 01/09/20 20:59 324 mg TID RAFY Administration Fish Oil 1 gm 12/11/19 09:00 12/13/19 09:15 [place]-3 (Purified Fish Oil) PO 01/10/20 08:59 1 gm DAILY RAFY Administration Fluticasone/Vilanterol 1 puffs 12/11/19 09:00 12/13/19 09:16 Breo Ellipta 100/25 Mcg Inh INH 01/10/20 08:59 1 puffs DAILY RAFY Administration Protocol Folic Acid 1 mg 12/11/19 09:00 12/13/19 09:15 Folvite PO 01/10/20 08:59 1 mg DAILY RAFY Administration Gabapentin 800 mg 12/12/19 14:00 12/13/19 09:12 Neurontin PO 01/11/20 13:59 800 mg TID RAFY Administration Heparin Sodium (Porcine) 5,000 units 12/10/19 22:00 12/13/19 05:37 Heparin Sodium (Porcine) SQ 01/09/20 21:59 Not Given Q8 RAFY Sodium Chloride 1,000 mls @ 80 mls/hr 12/10/19 20:35 12/13/19 10:40 Nss 1000ml IV 01/09/20 20:34 80 mls/hr .[id number] RAFY Administration Vancomycin HCl 750 mg/ Sodium 265 mls @ 125 mls/hr 12/11/19 10:00 12/13/19 11:41 Chloride IV 12/21/19 09:59 Infused Q12H RAFY Infusion Protocol Lactobacillus Acidophilus 4 tab 12/11/19 09:00 12/13/19 09:13 Floranex PO 01/10/20 08:59 4 tab DAILY RAFY Administration Magnesium Oxide 400 mg 12/11/19 09:00 12/13/19 09:13 Mag-Ox PO 01/10/20 08:59 400 mg DAILY RAFY Administration Metoprolol Succinate 12.5 mg 12/11/19 09:00 12/13/19 09:14 Toprol Xl PO 01/10/20 08:59 12.5 mg DAILY RAFY Administration Multivitamins 1 tab 12/11/19 09:00 12/13/19 09:13 Multivitamin Tab PO 01/10/20 08:59 1 tab DAILY RAFY Administration Pantoprazole Sodium 40 mg 12/11/19 09:00 12/13/19 09:13 Protonix PO 01/10/20 08:59 40 mg DAILY RAFY Administration Tramadol HCl 50 mg 12/11/19 11:17 12/12/19 22:37 Ultram PO 01/10/20 11:16 50 mg Q8H PRN Administration Moderate Pain Umeclidinium [place] 1 puffs 12/11/19 09:00 12/13/19 09:17 Incruse Ellipta INH 01/10/20 08:59 1 puffs DAILY RAFY Administration Protocol Vitamin B Complex 1 tab 12/11/19 09:00 12/13/19 09:13 Vitamin B Complex PO 01/10/20 08:59 1 tab DAILY RAFY Administration Past Medical History Medical History Acid reflux Aortic stenosis Aortic valve regurgitation CAD (coronary artery disease) (Chronic) 2004 -PCI to unknown vessel Charcot foot due to diabetes mellitus (Chronic) Chronic combined systolic and diastolic CHF (congestive heart failure) (Chronic) EF 40 to 44%, grade 2 diastolic dysfunction Cirrhosis of liver "UNDETERMINED ORIGIN" CKD (chronic kidney disease), stage III (Chronic) pt denies having any problems with kidneys. COPD (chronic obstructive pulmonary disease) (Chronic) Diabetes mellitus type 2, diet-controlled Diabetic peripheral neuropathy (Chronic) History of alcohol abuse History of anxiety History of depression History of endometriosis "STAGE 1 GRADE 1" History of sleep apnea HX CPAP HTN (hypertension) Hypercholesteremia SARANYA (iron deficiency anemia) (Chronic) Impaired fasting glucose A1C 6/1% 05/2019 Infected surgical wound Ischemic cardiomyopathy (Chronic) EF 40-44% Mitral regurgitation PAD (peripheral artery disease) (Chronic) Rheumatoid arthritis Sleep apnea Snores Valvular heart disease (Chronic) Past Family History Family History Father Family history of diabetes mellitus Family history of COPD (chronic obstructive pulmonary disease) Sister Breast cancer Past Surgical History Surgical History History of anesthesia reaction PT REPORTS URINARY RETENTION POST OP, USUALLY REQUIRING STRAIGHT CATH History of bilateral carotid endarterectomy (Chronic) History of cardiac cath 2004 ..TOLD HAD 2 AZ'S - STENT X1 History of cholecystectomy (Chronic) History of colonoscopy History of hysterectomy (Chronic) supracervical History of left below knee amputation (Chronic) History of lumbar discectomy S/P vascular surgery 11/02/2020-right common femoral endarterectomy, right femoral and posterior tibial bypass Social History Smoking Status: Light tobacco smoker tobacco type: cigarettes Smoking cigarettes per day: < 5 Hx Alcohol Use: No Hx Substance Use: No substance use type: does not use Physical Exam Vital Signs Last Vital Signs Temp 99.0 F 12/13/19 11:47 Pulse 65 12/13/19 11:47 Resp 19 12/13/19 11:47 BP 122/63 12/13/19 11:47 Pulse Ox 95 12/13/19 11:47 Testing Laboratory Results 12/12/19 06:59 12/13/19 07:32 PT 11.5 Seconds (9.0-12.0) 12/10/19 14:20 INR 1.1 (0.9-1.1) 12/10/19 14:20 APTT 30.0 Seconds (21.0-31.0) 12/10/19 14:20 Hemoglobin A1c 5.1 % (4.5-5.6) 12/13/19 07:32 Urine Color Yellow 12/10/19 16:25 Urine Appearance Clear (Clear) 12/10/19 16:25 Urine pH 5.5 (4.5-7.5) 12/10/19 16:25 Ur Specific [place] 1.015 (1.000-1.030) 12/10/19 16:25 Urine Protein Trace (Negative) H 12/10/19 16:25 Urine Glucose (UA) Negative (Negative) 12/10/19 16:25 Urine Ketones Negative (Negative) 12/10/19 16:25 Urine Nitrite Negative (Negative) 12/10/19 16:25 Ur Leukocyte Esterase Negative (Negative) 12/10/19 16:25 Urine WBC (Auto) 1-5 /hpf (0-5) 12/10/19 16:25 Urine RBC (Auto) 5-10 /hpf (0-4) H 12/10/19 16:25 U Hyaline Cast (Auto) 0 /lpf (0-5) 12/10/19 16:25 U Epithel Cells (Auto) 0-5 /lpf (0-5) 12/10/19 16:25 Urine Bacteria (Auto) Negative (Negative) 12/10/19 16:25 12/10/19 16:46 Aerobic Blood Culture - Preliminary Blood No growth in Aerobic bottle after 48 hours. Anaerobic Blood Culture - Preliminary No growth in Anaerobic bottle after 48 hours. 12/10/19 16:34 Aerobic Blood Culture - Preliminary Blood No growth in Aerobic bottle after 48 hours. Anaerobic Blood Culture - Preliminary No growth in Anaerobic bottle after 48 hours. 12/10/19 18:50 Gram Stain - Final Groin Wound Culture - Final Staph aureus MRSA 12/11/19 14:00 Gram Stain - Final Joint Fluid/Space (Synovial) Aerobic and Anaerobic Culture - Preliminary No growth to date. Electrocardiogram Date: 12/10/19 Sinus rhythm with 1st degree A-V block, rate 69 bpm Left anterior fascicular block Nonspecific T wave abnormality Abnormal ECG When compared with ECG of 06-NOV-2019 22:36, Premature ventricular complexes are no longer Present Confirmed by Graham Falk ([id number]) on 12/11/2019 6:41:38 AM Chest X-Ray Date: 12/10/19 IMPRESSION: Cardiomegaly with no active disease in the chest. Echocardiogram Date: 11/07/19 No significant change compared to previous study of April 2019 Mildly dilated LV chamber size with moderate concentric LVH Mildly reduced LV systolic function, EF 40-45% The inferior wall is moderately hypokinetic. The remaining LV wall segments are mildly hypokinetic Grade 2 diastolic dysfunction Moderately calcified, trileaflet AV with moderate and mild AR Severe mitral annular calcification causing at least mild MS. Mod to severe MR with an anteriorly directed jet Severe LA enlargement
--- NOTE | 2019-12-13 17:20 | Orthopedic Progress Note ---
Date of Service December 13, 2019 Assessment & Plan (1) Gout: fluid analysis shows gout, started on colchicine. Present on Admission?: Yes (2) Knee pain: Present on Admission?: Yes (3) Olecranon bursitis, right elbow: Present on Admission?: Yes Results & Data ([facility]) Vital Signs (Past 12 Hours) Vital Signs Temp Pulse Pulse Resp BP BP Pulse Ox 12/13/19 15:23 65 12/13/19 15:20 37.2 C 56 L 18 114/58 L 96 12/13/19 11:47 37.2 C 65 19 122/63 95 12/13/19 08:00 66 12/13/19 07:55 37.1 C 66 19 105/59 L 94
--- NOTE | 2019-12-13 18:54 | Hospitalist Progress Note ---
Date of Service December 13, 2019 Assessment & Plan (1) Cellulitis of right lower extremity: Cellulitis RLE with drainage from surgical wounds. Does not appear to be septic. Wound culture from right groin growing MRSA. Clinically improved. Temp coming down. Procalcitonin 12/12 0.09. Continue IV vancomycin. (2) S/P vascular surgery: S/P right common femoral endarterectomy vein patch graft, right femoral to posterior tibial artery in situ bypass 11/02/19. Vascular Surgery consulted to follow. (3) Knee pain: Severe right knee pain with effusion. Differential diagnosis included septic or inflammatory arthritis. Ortho consulted. Arthrocentesis performed. WBC - 10,966 crystals - gout gram stain - few WBC's, no organisms C&S - negative so far Colchicine ordered. (4) Metabolic encephalopathy: Altered mental status at time of admission. No acute FINANCIAL PLANNING ADVISOR findings on CT. Probable metabolic encephalopathy / delirium from infection. (5) Sinusitis, acute, maxillary: Right maxillary sinusitis noted on CT head. Has some sinus pain and drainage. Initially received IV vancomycin and cefepime. Transition to PO Rx with cefuroxime. (6) CAD (coronary artery disease): Stable. Continue aspirin, metoprolol, statin. (7) Chronic combined systolic and diastolic CHF (congestive heart failure): Compensated. No JUAN JOSE or ARB due to CKD. Continue metoprolol succinate. Diurese as needed. (8) HTN (hypertension): Continue metoprolol. (9) COPD (chronic obstructive pulmonary disease): Pulmonary status stable. (10) Cirrhosis of liver: LFT's OK except for elevated alk phos. NH3 27. (11) CKD (chronic kidney disease), stage III: Serum creatinine 1.36 at time of admission. Acute kidney injury secondary to infection. Creatinine today = 0.81. Follow. (12) Rheumatoid arthritis: Need to hold MTX due to active infection. (13) Diabetes mellitus type 2, diet-controlled: Glucose at time of admission 118. Check Hgb A1C. FBS today = 102. Insulin coverage as needed. (14) DVT prophylaxis: SQ heparin. (15) Discharge planning issues: Discharge disposition to be determined. Family Medicine follow-up with Dr. Dudley. Subjective Recheck for multiple problems. Patient seen in their room around 1510. Overall, feels much better. Febrile last night. Right lower extremity/right knee pain improved. Schedule to go to OR tomorrow for debridement of RLE wound. Sinus pressure and cough improved. Review of Systems: Constitutional- as noted above. Cardiac- no chest pain. Pulmonary- no cough or SOB. GI- no nausea, vomiting, diarrhea, melena, hematochezia. - no urinary symptoms. Otherwise, as noted above. Physical Exam Constitutional: no acute distress Eyes: + anicteric sclerae Respiratory: no respiratory distress Auscultation: + wheezes (mild) Cardiovascular: Rate/Rhythm: regular rate and regular rhythm Heart Sounds: + murmur (III/ sys murmur at base); no gallop and no cardiac rub Vessels: no JVD Extremities: + edema (trace right pretibial) Gastrointestinal (Abdomen): normal bowel sounds, soft, nontender, no hepatosplenomegaly Musculoskeletal: Extremities: extremities normal to inspection (effusion / tenderness right knee, improved), + amputation noted (left BKA) and + foot abnormality (Charcot deformity right foot); no cyanosis Skin: + rash (erythema right medial thigh and right leg, improved) and + wound (right calf incision bandaged) Psychiatric: Orientation: alert and oriented x 3 (mild confusion) Results & Data Vital Signs (Past 12 Hours) Vital Signs Temp Pulse Pulse Resp BP BP Pulse Ox 12/13/19 15:23 65 12/13/19 15:20 37.2 C 56 L 18 114/58 L 96 12/13/19 11:47 37.2 C 65 19 122/63 95 12/13/19 08:00 66 12/13/19 07:55 37.1 C 66 19 105/59 L 94
[2019-12-13] MEDS: TRAMADOL HCL 50 MG TABLET PO PRN (19:37)
[2019-12-13] MEDS: COLCHICINE 0.6 MG TAB PO SCH (20:44)
[2019-12-14] MEDS: HEPARIN SOD 5,000 UNIT/0.5 ML VIAL SQ SCH ×3 (05:27→21:48)
--- NOTE | 2019-12-14 08:44 | History & Physical Bridge Note ---
Date of Service December 14, 2019 History & Physical Bridge Note Patient for wound debridement and possible wound vac application today. I have discussed the risks options and benefits of the procedure with the patient. The patient understands the risks options and benefits and agrees to the procedure. I have examined the patient, reviewed the History & Physical and in the interval since the performance of the History & Physical I have noted the following changes of clinical significance: no changes noted
[2019-12-14] MEDS: VANCOMYCIN HCL 750 MG in SODIUM CHLORIDE 0.9% 250 ML IV SCH ×2 (09:09→21:47)
[2019-12-14] MEDS ORDERED: ePHEDrine sulfate 50 MG/ML AMP IV PRN (09:22)
[2019-12-14] MEDS ORDERED: LIDOCAINE HCL 1% 20 ML VIAL ONE (09:22)
[2019-12-14] MEDS ORDERED: ATROPINE SULFATE 0.1 MG/ML 10ML SYR IV PRN (09:22)
[2019-12-14] MEDS ORDERED: fentaNYL citrate 100 MCG/2 ML VIAL IV PRN (09:22)
[2019-12-14] MEDS ORDERED: BUPIVACAINE/EPINEPHRINE 0.5% MPF 1:200,000 10 ML VIAL ONE (09:22)
[2019-12-14] MEDS ORDERED: ONDANSETRON INJ 2 MG/ML 2 ML VIAL IV PRN (09:22)
[2019-12-14] MEDS ORDERED: DEXAMETHASONE SOD INJ 4 MG/ML VIAL ONE (09:23)
[2019-12-14] MEDS ORDERED: fentaNYL citrate 100 MCG/2 ML VIAL ONE (09:23)
[2019-12-14] MEDS ORDERED: ONDANSETRON INJ 2 MG/ML 2 ML VIAL ONE (09:23)
[2019-12-14] MEDS ORDERED: PROPOFOL IV EMULSION 10 MG/ML 20 ML VIAL IV ONE (09:23)
[2019-12-14] MEDS ORDERED: LIDOCAINE HCL 2% 2 ML VIAL/AMP(20MG/ML) INFIL ONE (09:23)
[2019-12-14] MEDS ORDERED: VANCOMYCIN TROUGH ONE (09:30)
[2019-12-14] MEDS ORDERED: ePHEDrine sulfate 50 MG/ML SYR ONE (10:05)
--- NOTE | 2019-12-14 10:12 | Operative Report ---
Post Operative Report Pre & Post Diagnosis Operation Date: 12/14/19 09:20 <No data on this case meets the specified criteria> I identified the patient and participated in the time-out.: Yes Procedure Operation Date: 12/14/19 09:20 <No data on this case meets the specified criteria> Surgeon Alysha Park MD Program Director/Air Personality Yakelin Marsh MD Estimated Blood Loss 0 Findings Consistent with Post-Op Diagnosis Specimens None Anesthesia Type General Complications none Disposition Accompanied Patient To Recovery: No Disposition: Recovery Room Indications Mrs Hinkle is a 69 year old female who has a history of right femoral endarterectomy and fem-distal bypass in October that has been complicated by cellulitis and infection at the surgical sites (MRSA previously cultured from her groin). She presents with cellulitis at her distal incision site with associated tenderness. Incision and debridement was recommended, I have discussed the risks options and benefits of the procedure with the patient. The patient understands the risks options and benefits and agrees to the procedure. Description of Procedure Patient was brought to the operating room placed supine on the OR table. Patient's identity, procedure and laterality were confirmed prior to induction of general anesthesia. The patient's right lower extremities then prepped and draped in standard sterile fashion. The inferior most portion of her right lower extremity incision at the region of open wound was then further opened using Metzenbaum scissors and a small ellipse created. There is no active drainage of pus however there was noted to be a hematoma underneath the skin surface at this location. The clot was removed and a Pulsavac director special education used for further hematoma debridement. Of note there is no portion of the prior bypass graft within the wound bed. Patient was made to place a wound VAC for adjuvant. A small black sponge was trimmed to fit the appropriate depth and width and length of the wound, which measured 3 cm x 1 cm x 0.5 cm Skin-Prep was placed as a barrier to adhesive. Small portions of the adhesive sheet were used to remove the wound to protect healthy skin. Related sized black sponge was inserted into the wound bed and a larger landing zone for the device bailey pad was then placed on top of this and the sponge covered with an additional layer of adhesive sheet. A 1 cm diameter hole was cut a piece of black sponge and aluminum pad applied. [place] cath was connected to the negative pressure wound therapy device at -1.5 mmHg and a there was no evidence of leak. After taking the appropriate seal the patient was awakened from general anesthesia without complication. All sponge and instrument counts were correct at the conclusion of the case. Dr. Park was present the entirety of the procedure. I attest to the content of the Intraoperative Record and any orders documented therein. Any exceptions are noted below.
--- NOTE | 2019-12-14 10:15 | Post Operative Brief Note ---
Immediate Post Op Note v1 Date of Surgery December 14, 2019 Pre & Post Diagnosis Operation Date: 12/14/19 09:20 Pre-Op Diagnosis: Right leg Wound Post-Op Diagnosis: Right leg Wound I identified the patient and participated in the time-out.: Yes Procedure Operation Date: 12/14/19 09:20 Actual Procedures p Right Leg Wound Debridement with Wound Vac Application(Right) [id number]- Elijah Park MD Surgeon Elijah Park MD Radial Drill Operator Yakelin Marsh MD Estimated Blood Loss 0 Findings Consistent with Post-Op Diagnosis Anesthesia Type General Complications none Disposition Accompanied Patient To Recovery: No Disposition: Recovery Room
--- NOTE | 2019-12-14 10:48 | Anesthesiology Progress Note ---
Date of Service December 14, 2019 Anesthesia Post Procedure Vital Signs Vital Signs: Temp Pulse Pulse Pulse Resp BP BP 12/14/19 10:45 98.6 F 63 14 132/64 12/14/19 10:35 60 13 125/64 12/14/19 10:25 61 17 123/56 L 12/14/19 10:19 98.1 F 61 18 112/58 L 12/14/19 08:37 98.6 F 58 L 20 109/65 12/14/19 08:00 64 12/14/19 07:59 98.8 F 82 19 110/71 12/14/19 03:40 98.6 F 63 20 137/74 12/14/19 00:46 62 12/14/19 00:13 99.0 F 65 20 116/71 12/13/19 21:43 99.7 F H 62 18 121/66 12/13/19 15:23 65 12/13/19 15:20 99.0 F 56 L 18 114/58 L 12/13/19 12:00 98.8 F 64 18 115/63 12/13/19 11:47 99.0 F 65 19 122/63 Pulse Ox 12/14/19 10:45 100 12/14/19 10:35 100 12/14/19 10:25 100 12/14/19 10:19 100 12/14/19 08:37 96 12/14/19 08:00 12/14/19 07:59 100 12/14/19 03:40 96 12/14/19 00:46 12/14/19 00:13 97 12/13/19 21:43 97 12/13/19 15:23 12/13/19 15:20 96 12/13/19 12:00 100 12/13/19 11:47 95 Pain Intensity Generalized: Pain Intensity: 4 Transfer of Care Handoff Completed per policy Notes Mental Status: alert / awake / arousable and participated in evaluation Patient Amnestic to Procedure: Yes Nausea / Vomiting: adequately controlled Pain: adequately controlled Airway Patency, RR, SpO2: stable & adequate BP & HR: stable & adequate Hydration State: stable & adequate Anesthetic Complications: no major complications apparent and Pt Satisfied with anesthetic care
[2019-12-14] MEDS: FERROUS GLUCONATE 324 MG TAB PO SCH ×3 (11:23→20:15)
[2019-12-14] MEDS: OMEGA-3 (PURIFIED FISH OIL) 1 GM CAP PO SCH (11:23)
[2019-12-14] MEDS: ASPIRIN 81 MG ECTAB PO SCH (11:23)
[2019-12-14] MEDS: PANTOprazole 40 MG TAB PO SCH (11:23)
[2019-12-14] MEDS: VITAMIN B COMPLEX TAB PO SCH (11:24)
[2019-12-14] MEDS: LACTOBACILLUS ACIDOPHILUS (FLORANEX) TAB PO SCH (11:24)
[2019-12-14] MEDS: MULTIVITAMIN TAB PO SCH (11:24)
[2019-12-14] MEDS: GABAPENTIN 800 MG TAB PO SCH ×3 (11:25→20:15)
[2019-12-14] MEDS: ATORVASTATIN 40 MG TAB PO SCH (11:25)
[2019-12-14] MEDS: METOPROLOL SUCC 25MG EXT REL TAB PO SCH (11:25)
[2019-12-14] MEDS: cefUROXime axetil 500 MG TAB PO SCH ×2 (11:26→20:14)
[2019-12-14] MEDS: FOLIC ACID 1 MG TAB PO SCH (11:26)
[2019-12-14] MEDS: MAGNESIUM OXIDE 400 MG TAB PO SCH (11:32)
[2019-12-14] MEDS: FLUTICASONE/VILANTEROL 100/25MCG 14 PUFFS/INHALER INH SCH (11:33)
[2019-12-14] MEDS: UMECLIDINIUM BROMIDE 62.5MCG/BLISTER 7 PUFFS/INHALER INH SCH (11:33)
[2019-12-14] MEDS: COLCHICINE 0.6 MG TAB PO SCH ×2 (11:33→20:15)
[2019-12-14 13:33] LABS: BUN Creatinine Ratio 30.1 (10-20); Calcium 8.8 mg/dl (8.5-10.1); Creatinine Clr Calc Pharmacy 57.1 ml/min; Est GFR (African American) 87.2; Est GFR (Non-African American) 75.2; Potassium 4.7 mmol/L (3.5-5.1); Uric Acid 8.1 mg/dl (2.6-7.2)
--- NOTE | 2019-12-14 16:08 | Hospitalist Progress Note ---
Date of Service December 14, 2019 Assessment & Plan (1) Cellulitis of right lower extremity: Cellulitis RLE with drainage from surgical wounds. Does not appear to be septic. Wound culture from right groin growing MRSA. Clinically improved. Temp coming down. Procalcitonin 12/12 0.09. Debridement of right leg wound with placement of wound vac performed 12/14. Receiving IV vancomycin. Consult ID for their recommendations regarding further management. (2) S/P vascular surgery: S/P right common femoral endarterectomy vein patch graft, right femoral to posterior tibial artery in situ bypass 11/02/19. Vascular Surgery consulted. Debridement of right leg wound with placement of wound vac performed 12/14. (3) Gout: Severe right knee pain with effusion. Differential diagnosis included septic or inflammatory arthritis. Ortho consulted. Arthrocentesis performed. WBC - 10,966 crystals - gout gram stain - few WBC's, no organisms C&S - negative so far Colchicine ordered. Uric acid 8.1. Start allopurinol once acute flare resolved. (4) Metabolic encephalopathy: Altered mental status at time of admission. No acute SHEET HEATER findings on CT. Probable metabolic encephalopathy / delirium from infection. (5) Sinusitis, acute, maxillary: Right maxillary sinusitis noted on CT head. Has some sinus pain and drainage. Initially received IV vancomycin and cefepime. Transitioned to PO Rx with cefuroxime. (6) CAD (coronary artery disease): Stable. Continue aspirin, metoprolol, statin. (7) Chronic combined systolic and diastolic CHF (congestive heart failure): Compensated. No JUAN JOSE or ARB due to CKD. Continue metoprolol succinate. Diuretics currently on hold due to KADEN; diurese as needed. (8) HTN (hypertension): Continue metoprolol. (9) COPD (chronic obstructive pulmonary disease): Pulmonary status stable. (10) Cirrhosis of liver: LFT's OK except for elevated alk phos. NH3 27. (11) CKD (chronic kidney disease), stage III: Serum creatinine 1.36 at time of admission. Acute kidney injury secondary to infection. Creatinine today = 0.82. Follow. (12) Diabetes mellitus type 2, diet-controlled: Glucose at time of admission 118. Check Hgb A1C. FBS today = 118. Insulin coverage as needed. (13) Rheumatoid arthritis: Need to hold MTX due to active infection. (14) DVT prophylaxis: SQ heparin. (15) Discharge planning issues: Discharge disposition to be determined. Family Medicine follow-up with Dr. Dudley. Subjective Recheck for multiple problems. Patient seen in their room around 1540. Taken to OR today for debridement of RLE wound. Has some postop discomfort. Sinus pressure and cough improved. Low grade temp last night. Review of Systems: Constitutional- as noted above. Cardiac- no chest pain. Pulmonary- no cough or SOB. GI- no nausea, vomiting, diarrhea, melena, hematochezia. - no urinary symptoms. Otherwise, as noted above. Physical Exam Constitutional: no acute distress Eyes: + anicteric sclerae Respiratory: no respiratory distress Auscultation: + wheezes (mild) Cardiovascular: Rate/Rhythm: regular rate and regular rhythm Heart Sounds: + murmur (III/ sys murmur at base); no gallop and no cardiac rub Vessels: no JVD Extremities: + edema (trace right pretibial) Gastrointestinal (Abdomen): normal bowel sounds, soft, nontender, no hepatosplenomegaly Musculoskeletal: Extremities: extremities normal to inspection (effusion / tenderness right knee, improved), + amputation noted (left BKA) and + foot abnormality (Charcot deformity right foot); no cyanosis Skin: + rash (erythema right medial thigh and right leg, improved) and + wound (right calf incision bandaged) Psychiatric: Orientation: alert and oriented x 3 Results & Data Vital Signs (Past 12 Hours) Vital Signs Temp Pulse Pulse Pulse Resp BP BP 12/14/19 15:20 37.0 C 54 L 18 98/56 L 12/14/19 13:20 57 L 18 114/68 12/14/19 12:50 59 L 18 109/70 12/14/19 12:10 66 18 122/73 12/14/19 11:55 66 18 119/55 L 12/14/19 11:40 57 L 18 121/62 12/14/19 11:25 56 L 18 121/62 12/14/19 11:17 56 L 12/14/19 11:10 36.8 C 59 L 18 115/76 12/14/19 10:59 37.0 C 56 L 14 128/64 12/14/19 10:45 37.0 C 63 14 132/64 12/14/19 10:35 60 13 125/64 12/14/19 10:25 61 17 123/56 L 12/14/19 10:19 36.7 C 61 18 112/58 L 12/14/19 08:37 37 C 58 L 20 109/65 12/14/19 08:00 64 12/14/19 07:59 37.1 C 82 19 110/71 Pulse Ox 12/14/19 15:20 95 12/14/19 13:20 92 12/14/19 12:50 95 12/14/19 12:10 94 12/14/19 11:55 97 12/14/19 11:40 97 12/14/19 11:25 95 12/14/19 11:17 12/14/19 11:10 94 12/14/19 10:59 99 12/14/19 10:45 100 12/14/19 10:35 100 12/14/19 10:25 100 12/14/19 10:19 100 12/14/19 08:37 96 12/14/19 08:00 12/14/19 07:59 100 Laboratory Results Laboratory Results - last 24 hr 12/14/19 12/14/19 12/14/19 08:47 10:20 12:14 Sodium 137 Potassium 4.7 D Chloride 107 Carbon Dioxide 27 Anion Gap 3.0 BUN 24 H Creatinine 0.80 Est Cr Clr Drug Dosing 57.1 Est GFR ( Amer) 87.2 Est GFR (Non-Af Amer) 75.2 BUN/Creatinine Ratio 30.1 H Glucose 118 H POC Glucose 89 89 Uric Acid 8.1 H Calcium 8.8 Microbiology 12/10/19 16:46 Blood Aerobic Blood Culture - Preliminary No growth in Aerobic bottle after 48 hours. 12/10/19 16:46 Blood Anaerobic Blood Culture - Preliminary No growth in Anaerobic bottle after 48 hours. 12/10/19 16:34 Blood Aerobic Blood Culture - Preliminary No growth in Aerobic bottle after 48 hours. 12/10/19 16:34 Blood Anaerobic Blood Culture - Preliminary No growth in Anaerobic bottle after 48 hours. 12/10/19 18:50 Groin Gram Stain - Final 12/10/19 18:50 Groin Wound Culture - Final Staph aureus MRSA 12/11/19 14:00 Joint Fluid/Space (Synovial) Gram Stain - Final 12/11/19 14:00 Joint Fluid/Space (Synovial) Aerobic and Anaerobic Culture - Preliminary No growth to date.
[2019-12-14] MEDS: NICOTINE 7 MG/24 HR TDSY TD SCH (16:38)
[2019-12-14] MEDS: TRAMADOL HCL 50 MG TABLET PO PRN (16:46)
[2019-12-14] MEDS: ACETAMINOPHEN 325 MG TAB PO PRN (22:40)
[2019-12-15] MEDS: ACETAMINOPHEN 325 MG TAB PO PRN ×3 (03:07→21:31)
[2019-12-15] MEDS: HEPARIN SOD 5,000 UNIT/0.5 ML VIAL SQ SCH ×3 (05:35→21:36)
[2019-12-15] MEDS: GABAPENTIN 800 MG TAB PO SCH ×3 (08:04→21:38)
[2019-12-15] MEDS: COLCHICINE 0.6 MG TAB PO SCH ×2 (08:04→21:39)
[2019-12-15] MEDS: FOLIC ACID 1 MG TAB PO SCH (08:05)
[2019-12-15] MEDS: cefUROXime axetil 500 MG TAB PO SCH ×2 (08:05→21:39)
[2019-12-15] MEDS: PANTOprazole 40 MG TAB PO SCH (08:05)
[2019-12-15] MEDS: VITAMIN B COMPLEX TAB PO SCH (08:05)
[2019-12-15] MEDS: ASPIRIN 81 MG ECTAB PO SCH (08:05)
[2019-12-15] MEDS: METOPROLOL SUCC 25MG EXT REL TAB PO SCH (08:05)
[2019-12-15] MEDS: ATORVASTATIN 40 MG TAB PO SCH (08:05)
[2019-12-15] MEDS: NICOTINE 7 MG/24 HR TDSY TD SCH (08:06)
[2019-12-15] MEDS: LACTOBACILLUS ACIDOPHILUS (FLORANEX) TAB PO SCH (08:06)
[2019-12-15] MEDS: MULTIVITAMIN TAB PO SCH (08:06)
[2019-12-15] MEDS: FERROUS GLUCONATE 324 MG TAB PO SCH ×3 (08:06→21:39)
[2019-12-15] MEDS: FLUTICASONE/VILANTEROL 100/25MCG 14 PUFFS/INHALER INH SCH (08:07)
[2019-12-15] MEDS: UMECLIDINIUM BROMIDE 62.5MCG/BLISTER 7 PUFFS/INHALER INH SCH (08:07)
[2019-12-15] MEDS: MAGNESIUM OXIDE 400 MG TAB PO SCH (08:08)
[2019-12-15] MEDS: OMEGA-3 (PURIFIED FISH OIL) 1 GM CAP PO SCH (08:08)
--- NOTE | 2019-12-15 08:52 | Hospitalist Progress Note ---
Date of Service December 15, 2019 Assessment & Plan (1) Cellulitis of right lower extremity: Cellulitis RLE with drainage from surgical wounds. Does not appear to be septic. Wound culture from right groin growing MRSA. Clinically improved. Afebrile. Procalcitonin 12/12 0.09. Debridement of right leg wound with placement of wound vac performed 12/14. Receiving IV vancomycin. Consult ID for their recommendations regarding further management. (2) S/P vascular surgery: S/P right common femoral endarterectomy vein patch graft, right femoral to posterior tibial artery in situ bypass 11/02/19. Vascular Surgery consulted. Debridement of right leg wound with placement of wound vac performed 12/14. Acute blood loss anemia - post surgery - current. Hgb 10.9 - cont. to monitor (3) Gout: Severe right knee pain with effusion. Differential diagnosis included septic or inflammatory arthritis. Ortho consulted. Arthrocentesis performed. WBC - 10,966 crystals - gout gram stain - few WBC's, no organisms C&S - negative so far Colchicine ordered. Uric acid 8.1. Start allopurinol once acute flare resolved. (4) Metabolic encephalopathy: Altered mental status at time of admission. No acute LICENSED MORTGAGE LOAN OFFICER findings on CT. Probable metabolic encephalopathy / delirium from infection. (5) Sinusitis, acute, maxillary: Right maxillary sinusitis noted on CT head. Has some sinus pain and drainage. Initially received IV vancomycin and cefepime. Transitioned to PO Rx with cefuroxime. (6) CAD (coronary artery disease): Stable. Continue aspirin, metoprolol, statin. (7) Chronic combined systolic and diastolic CHF (congestive heart failure): Compensated. No JUAN JOSE or ARB due to CKD. Continue metoprolol succinate. Diuretics currently on hold due to KADEN; diurese as needed. (8) HTN (hypertension): Continue metoprolol. (9) COPD (chronic obstructive pulmonary disease): Pulmonary status stable. (10) Cirrhosis of liver: LFT's OK except for elevated alk phos. NH3 27. (11) CKD (chronic kidney disease), stage III: Serum creatinine 1.36 at time of admission. Acute kidney injury secondary to infection. Creatinine today = 0.82. Follow. (12) Diabetes mellitus type 2, diet-controlled: Glucose at time of admission 118. Check Hgb A1C. Insulin coverage as needed. (13) Rheumatoid arthritis: Need to hold MTX due to active infection. (14) DVT prophylaxis: SQ heparin. (15) Discharge planning issues: Discharge disposition to be determined. Family Medicine follow-up with Dr. Dudley. Subjective Patient sitting up in bed, in no acute distress, she is s/p RLE wound debridement and wound vac placement, by vascular surgery, yesterday. Denies any fevers, chills, chest pain, shortness of breath, abdominal pain, nausea or vomiting. She has good appetite. ID consulted for further Abx management. Pt says that after discharge she would like to be going home (with home health) and not to any facility like she did last time. Mentioned that her can take her on Friday. Will communicate this with CM. Review of Systems Review of Systems: All systems reviewed & are unremarkable except as noted in HPI & below Constitutional: no fever and no chills Respiratory: no cough and no dyspnea Cardiovascular: no chest pain, no dyspnea on exertion and no palpitations Gastrointestinal: no abdominal pain, no nausea and no vomiting Physical Exam Physical Exam: Constitutional: Elderly female, sitting up in bed, in no acute distress Eyes: EOMI, PERRL, + anicteric sclerae Respiratory: no respiratory distress Auscultation: + wheezes (mild) Cardiovascular: Rate/Rhythm: regular rate and regular rhythm Heart Sounds: + murmur (III/ sys murmur at base); no gallop and no cardiac rub Vessels: no JVD Extremities: + edema (trace right pretibial) Gastrointestinal (Abdomen): normal bowel sounds, soft, nontender, nondistended Musculoskeletal: Extremities: extremities normal to inspection (effusion / tenderness right knee, improved), + amputation noted (left BKA) and + foot abnormality (Charcot deformity right foot), wound VAC on right medial calf Skin: + rash (erythema right medial thigh and right leg, improved) Psychiatric: Orientation: alert and oriented x 3 Results & Data Vital Signs (Past 12 Hours) Vital Signs Temp Pulse Pulse Resp BP Pulse Ox 12/15/19 07:16 36.5 C 55 L 18 138/66 99 12/15/19 03:05 37.0 C 61 16 118/65 97 12/14/19 23:45 54 L 12/14/19 23:18 37.1 C 61 20 117/64 94 Laboratory Results 12/15/19 12/15/19 12/15/19 Range/Units 09:42 09:42 09:42 WBC 4.66 L (4.8-10.8) K/uL RBC 3.76 L (4.2-5.4) M/uL Hgb 10.9 L (12.0-16.0) g/dL Hct 33.5 L (37-47) % MCV 89.1 (80-100) fL MCH 29.0 (25-34) pg MCHC 32.5 (32-36) g/dL RDW Std Deviation 57.2 H (36.4-46.3) fL RDW Coeff of Tiburcio 17.6 H (11.5-14.5) % Plt Count 180 (130-400) K/uL MPV 10.2 (7.4-10.4) fL Immature Gran % (Auto) 0.2 % Neut % (Auto) 79.9 % Lymph % (Auto) 13.5 % Menard % (Auto) 6.2 % Eos % (Auto) 0.0 % Baso % (Auto) 0.2 % Immature Gran # (Auto) 0.01 (0.00-0.02) K/uL Neut # (Auto) 3.72 (1.4-6.5) K/uL Lymph # (Auto) 0.63 L (1.2-3.4) K/uL Menard # (Auto) 0.29 (0.11-0.59) K/uL Eos # (Auto) 0.00 (0-0.5) K/uL Baso # (Auto) 0.01 (0-0.2) K/uL Sodium 138 (136-145) mmol/L Potassium 4.8 (3.5-5.1) mmol/L Chloride 108 H (98-107) mmol/L Carbon Dioxide 27 (21-32) mmol/L Anion Gap 3.0 (3-11) BUN 31 H (7-18) mg/dl Creatinine 0.87 (0.6-1.2) mg/dl Est Cr Clr Drug Dosing 52.9 ml/min Est GFR ( Amer) 78.8 Est GFR (Non-Af Amer) 68.0 BUN/Creatinine Ratio 35.3 H (10-20) Glucose 117 H (70-99) mg/dl Calcium 8.8 (8.5-10.1) mg/dl Vancomycin Trough 15.1 (See Comment) mcg/ml Medications Administered Current Inpatient Medications Acetaminophen (Tylenol) 650 mg PO Q4H PRN PRN Reason: Pain or Fever Stop: 01/09/20 20:34 Last Admin: 12/15/19 03:07 Dose: 650 mg Documented by: Albuterol (Duoneb) 3 ml INH Q6H PRN PRN Reason: Shortness Of Breath Or Wheezing Stop: 01/09/20 20:34 Last Admin: 12/12/19 21:05 Dose: 3 ml Documented by: Aspirin (Ecotrin Ectab) 81 mg PO DAILY [facility] Stop: 01/10/20 08:59 Last Admin: 12/15/19 08:05 Dose: 81 mg Documented by: Atorvastatin Calcium (Lipitor) 80 mg PO DAILY [facility] Stop: 01/10/20 08:59 Last Admin: 12/15/19 08:05 Dose: 80 mg Documented by: Cefuroxime Axetil (Ceftin) 500 mg PO BID [facility] Stop: 12/22/19 20:59 Last Admin: 12/15/19 08:05 Dose: 500 mg Documented by: Colchicine (Colcrys) 0.6 mg PO BID [facility] Stop: 01/12/20 20:59 Last Admin: 12/15/19 08:04 Dose: 0.6 mg Documented by: Ferrous Gluconate (Ferrous Gluconate) 324 mg PO TID [facility] Stop: 01/09/20 20:59 Last Admin: 12/15/19 08:06 Dose: 324 mg Documented by: Fish Oil ([place]-3 (Purified Fish Oil)) 1 gm PO DAILY [facility] Stop: 01/10/20 08:59 Last Admin: 12/15/19 08:08 Dose: 1 gm Documented by: Fluticasone/Vilanterol (Breo Ellipta 100/25 Mcg Inh) 1 puffs INH DAILY [facility]; Protocol Stop: 01/10/20 08:59 Last Admin: 12/15/19 08:07 Dose: 1 puffs Documented by: Folic Acid (Folvite) 1 mg PO DAILY [facility] Stop: 01/10/20 08:59 Last Admin: 12/15/19 08:05 Dose: 1 mg Documented by: Gabapentin (Neurontin) 800 mg PO TID [facility] Stop: 01/11/20 13:59 Last Admin: 12/15/19 08:04 Dose: 800 mg Documented by: Heparin Sodium (Porcine) (Heparin Sodium (Porcine)) 5,000 units SQ Q8 [facility] Stop: 01/09/20 21:59 Last Admin: 12/15/19 05:35 Dose: 5,000 units Documented by: Vancomycin HCl 750 mg/ Sodium (Chloride) 265 mls @ 125 mls/hr IV Q12H [facility]; Pro tocol Stop: 12/21/19 09:59 Last Infusion: 12/14/19 23:55 Dose: Infused Documented by: Lactobacillus Acidophilus (Floranex) 4 tab PO DAILY [facility] Stop: 01/10/20 08:59 Last Admin: 12/15/19 08:06 Dose: 4 tab Documented by: Magnesium Oxide (Mag-Ox) 400 mg PO DAILY [facility] Stop: 01/10/20 08:59 Last Admin: 12/15/19 08:08 Dose: 400 mg Documented by: Metoprolol Succinate (Toprol Xl) 12.5 mg PO DAILY [facility] Stop: 01/10/20 08:59 Last Admin: 12/15/19 08:05 Dose: 12.5 mg Documented by: Miscellaneous (Remove Nicoderm Patch) 1 ea N/A DAILY@0859 [facility] Stop: 01/14/20 08:58 Last Admin: 12/15/19 08:07 Dose: 1 ea Documented by: Miscellaneous Information (Consult) 1 ea N/A UD PRN PRN Reason: Consult Stop: 01/09/20 20:42 Multivitamins (Multivitamin Tab) 1 tab PO DAILY [facility] Stop: 01/10/20 08:59 Last Admin: 12/15/19 08:06 Dose: 1 tab Documented by: Nicotine (Nicoderm Cq) 7 mg TD QAM [facility] Stop: 01/13/20 15:44 Last Admin: 12/15/19 08:06 Dose: 7 mg Documented by: Pantoprazole Sodium (Protonix) 40 mg PO DAILY [facility] Stop: 01/10/20 08:59 Last Admin: 12/15/19 08:05 Dose: 40 mg Documented by: Tramadol HCl (Ultram) 50 mg PO Q8H PRN PRN Reason: Moderate Pain Stop: 01/10/20 11:16 Last Admin: 12/14/19 16:46 Dose: 50 mg Documented by: Umeclidinium [place] (Incruse Ellipta) 1 puffs INH DAILY [facility]; Protocol Stop: 01/10/20 08:59 Last Admin: 12/15/19 08:07 Dose: 1 puffs Documented by: Vitamin B Complex (Vitamin B Complex) 1 tab PO DAILY [facility] Stop: 01/10/20 08:59 Last Admin: 12/15/19 08:05 Dose: 1 tab Documented by:
[2019-12-15] MEDS ORDERED: VANCOMYCIN TROUGH ONE (09:30)
[2019-12-15] MEDS: VANCOMYCIN HCL 750 MG in SODIUM CHLORIDE 0.9% 250 ML IV SCH ×2 (09:50→21:32)
[2019-12-15 09:53] LABS: Basophils # (auto) 0.01 K/uL (0-0.2); Basophils % (auto) 0.2 %; Hematocrit (blood only) 33.5 % (37-47); Hemoglobin 10.9 g/dL (12.0-16.0); Immature Granulocytes # (auto) 0.01 K/uL (0.00-0.02); Immature Granulocytes % (auto) 0.2 %; Lymphocytes # (auto) 0.63 K/uL (1.2-3.4); Lymphocytes % (auto) 13.5 %; Mean Corpuscular Hgb Conc 32.5 g/dL (32-36); Mean Corpuscular Volume 89.1 fL (80-100); Mean Platelet Volume 10.2 fL (7.4-10.4); Monocytes # (auto) 0.29 K/uL (0.11-0.59); Monocytes % (auto) 6.2 %; Neutrophils # (auto) 3.72 K/uL (1.4-6.5); Neutrophils % (auto) 79.9 %; Platelet Count 180 K/uL (130-400); RDW Coefficient of Variation 17.6 % (11.5-14.5); RDW Standard Deviation 57.2 fL (36.4-46.3); Red Blood Count 3.76 M/uL (4.2-5.4); White Blood Count 4.66 K/uL (4.8-10.8)
[2019-12-15 10:28] LABS: BUN Creatinine Ratio 35.3 (10-20); Calcium 8.8 mg/dl (8.5-10.1); Creatinine Clr Calc Pharmacy 52.9 ml/min; Est GFR (African American) 78.8; Potassium 4.8 mmol/L (3.5-5.1)
--- NOTE | 2019-12-15 11:27 | Pharmacy Report ---
Pharmacy Abx Dose Short Note - Date of Service December 15, 2019 - Assessment & Plan Assessment 69 year old F receiving vancomycin for treatment of MRSA wound. Day # 6 of antimicrobial therapy. Plan Vancomycin * Trough level of 15.1 mcg/mL is therapeutic. * Continue dose of 750 mg IV every 12 hours * Goal trough level for MRSA infection : ~15 mcg/mL * Re-order additional doses based upon kidney function and duration of treatment. Pharmacy will continue to follow and will adjust dose/frequency as necessary. Thank you.
--- NOTE | 2019-12-15 11:44 | Infectious Disease Consult ---
Date of Consultation December 15, 2019 Assessment & Plan (1) Infected surgical wound: continue vanco for now. discussed options for abx upon d/c. would be a good candidate for Dalvance x 2 infusions, she would like this if accepted by insurance. continue vanco for now. hopefully can d/c with plans for 2 doses Dalvance at [facility] post d/c. History of Present Illness Attending Physician: Joseph Wiley MD pt admitted with change in mental status and erythema of right leg, had recent vascular proceudre, taken back to OR, repair, cutlure of wound growing MRSA, resistant to doxy and clinda. she is currently on vanco and tolerating well. 12/12 wbc4, creat normal. afebrile. vac over wound. ortho following for knee pain, aspirate done, 10,966 wbc, cultures pending. blood cultures negative. ID consulted for mrsa cellulitis. pt has no complaints, no pain in leg, no f/c. no abd pain, no n/v/d. no cp, sob, cough, olivera. Allergies Allergy/AdvReac Type Severity Reaction Status Date / Time Penicillins Allergy Intermediate hives/upset Verified 12/14/19 08:51 stomach/diarrhea Iodinated Contrast Media AdvReac Intermediate severe Verified 12/14/19 08:51 [Iodinated Contrast- Oral vomiting and IV Dye] oxycodone [From Percocet] AdvReac Intermediate vomiting Verified 12/14/19 08:51 Home Medications Home Medications Medication Instructions Recorded Confirmed Type aspirin 81 mg tablet,delayed 81 mg PO DAILY 07/22/18 12/10/19 History release citalopram 40 mg tablet 40 mg PO DAILY 07/22/18 12/10/19 History gabapentin 800 mg tablet 800 mg PO TID tab 07/22/18 12/10/19 History omega 0-jtn-uwb-fish oil 1,000 mg 1 cap PO DAILY cap 07/22/18 12/10/19 History (120 mg-180 mg) capsule Symbicort 2 puff INHALATION BID 03/01/19 12/10/19 History atorvastatin 80 mg PO DAILY 03/01/19 12/10/19 History ferrous gluconate 324 mg PO TID 03/01/19 12/10/19 History folic acid 1 mg PO DAILY 03/01/19 12/10/19 History ipratropium-albuterol 3 ml INHALATION Q6H PRN 03/01/19 12/10/19 History metoprolol succinate 12.5 mg PO DAILY 03/01/19 12/10/19 History multivitamin 1 tab PO DAILY 03/01/19 12/10/19 History omeprazole 40 mg PO DAILY 03/01/19 12/10/19 History vitamin B complex 1 tab PO DAILY 03/01/19 12/10/19 History furosemide [Lasix] 40 mg PO BID 04/05/19 12/10/19 History magnesium oxide 400 mg PO DAILY 04/05/19 12/10/19 History nitroglycerin 0.4 mg SUBLINGUAL UD PRN 04/05/19 12/10/19 History tramadol 50 mg PO BID PRN 07/15/19 12/10/19 History tiotropium bromide 18 mcg capsule 1 cap INH DAILY 09/02/19 12/10/19 History with inhalation device spironolactone 100 mg PO DAILY 09/13/19 12/10/19 History ibuprofen 600 mg PO UD PRN 10/25/19 12/10/19 History Lactobacillus rhamnosus GG 1 cap PO DAILY #30 cap 11/09/19 12/10/19 Rx [Culturelle] colchicine [Colcrys] 0.6 mg PO DAILY 12/10/19 12/10/19 History fluticasone propionate 1 spray INTRANASAL DAILY 12/10/19 12/10/19 History methotrexate sodium 15 mg SUBCUT WK 12/10/19 12/10/19 History Patient History Medical History Acid reflux Aortic stenosis Aortic valve regurgitation CAD (coronary artery disease) (Chronic) 2004 -PCI to unknown vessel Charcot foot due to diabetes mellitus (Chronic) Chronic combined systolic and diastolic CHF (congestive heart failure) (Chronic) EF 40 to 44%, grade 2 diastolic dysfunction Cirrhosis of liver "UNDETERMINED ORIGIN" CKD (chronic kidney disease), stage III (Chronic) pt denies having any problems with kidneys. COPD (chronic obstructive pulmonary disease) (Chronic) Diabetes mellitus type 2, diet-controlled Diabetic peripheral neuropathy (Chronic) Gout History of alcohol abuse History of anxiety History of depression History of endometriosis "STAGE 1 GRADE 1" History of sleep apnea HX CPAP HTN (hypertension) Hypercholesteremia SARANYA (iron deficiency anemia) (Chronic) Impaired fasting glucose A1C 6/1% 05/2019 Infected surgical wound Ischemic cardiomyopathy (Chronic) EF 40-44% Mitral regurgitation PAD (peripheral artery disease) (Chronic) Rheumatoid arthritis Sleep apnea Snores Valvular heart disease (Chronic) Surgical History History of anesthesia reaction PT REPORTS URINARY RETENTION POST OP, USUALLY REQUIRING STRAIGHT CATH History of bilateral carotid endarterectomy (Chronic) History of cardiac cath 2004 ..TOLD HAD 2 HI'S - STENT X1 History of cholecystectomy (Chronic) History of colonoscopy History of hysterectomy (Chronic) supracervical History of left below knee amputation (Chronic) History of lumbar discectomy S/P vascular surgery 11/02/2020-right common femoral endarterectomy, right femoral and posterior tibial bypass Family History Father Family history of diabetes mellitus Family history of COPD (chronic obstructive pulmonary disease) Sister Breast cancer Social History Preferred Language: Maori Communication Ability: Effective Visual Impairment: Limited Hearing Ability: Normal Cessation Systems Outreach Specialist Required: No Beliefs That Will Affect Care: None marital status: Current Living Situation: Spouse current occupational status: disabled Feels Safe at Home: Yes Safety Concerns: Feels Safe At This Time Smoking Status: Light tobacco smoker Tobacco Type: cigarettes ; Cigarettes Per Day: < 5 ; Second Hand Exposure: Yes ; Hx Alcohol Use: No Hx Substance Use: No Review of Systems Review of Systems: All systems reviewed & are unremarkable except as noted in HPI & below Physical Exam Constitutional: WD/WN, vitals as above Eyes: PERRL, conjunctivae normal, anicteric sclerae ENMT: external ear and nose normal, oropharynx normal Neck: normal visual inspection Respiratory: normal respiratory effort, lungs clear to auscultation Cardiovascular: RRR, no murmur, no edema Gastrointestinal (Abdomen): normal bowel sounds, soft, nontender, no hepatosplenomegaly Musculoskeletal: no cyanosis or clubbing, extremities motor strength 5/5 Skin: no rashes, warm and dry + wound (vac in place) Psychiatric: A+Ox3, euthymic affect Results & Data Vital Signs (Past 12 Hours) Vital Signs Temp Pulse Pulse Resp BP Pulse Ox 01/29/20 07:16 36.5 C 55 L 18 138/66 99 12/15/19 03:05 37.0 C 61 16 118/65 97 12/14/19 23:45 54 L Laboratory Results Microbiology 12/10/19 16:46 Blood Aerobic Blood Culture - Preliminary No growth in Aerobic bottle after 48 hours. 12/10/19 16:46 Blood Anaerobic Blood Culture - Preliminary No growth in Anaerobic bottle after 48 hours. 12/10/19 16:34 Blood Aerobic Blood Culture - Preliminary No growth in Aerobic bottle after 48 hours. 12/10/19 16:34 Blood Anaerobic Blood Culture - Preliminary No growth in Anaerobic bottle after 48 hours. 12/10/19 18:50 Groin Gram Stain - Final 12/10/19 18:50 Groin Wound Culture - Final Staph aureus MRSA 12/11/19 14:00 Joint Fluid/Space (Synovial) Gram Stain - Final 12/11/19 14:00 Joint Fluid/Space (Synovial) Aerobic and Anaerobic Culture - Preliminary No growth to date. PG Care Time/CCT Total # of Minutes Spent Total Time Spent with Patient: Total time spent is greater than 50% in coordination of care (as documented) at patient's floor/unit and/or counseling patient: Coding Level of Care Code 53076 Inpt Consult Level 4 Diagnoses Infected surgical wound T81.49XA
--- NOTE | 2019-12-15 11:58 | Surgery Progress Note ---
Date of Service December 15, 2019 Assessment & Plan (1) Infected surgical wound: Pt is s/p RLE wound debridement and wound vac placement. Doing well postop. Recommend d/c to home with home nursing for vac changes M/W/F whenever vac approval obtained from insurance. Will see in office in 2 weeks. Subjective 69 yo f POD #1 after RLE wound debridement and wound vac placement, seen in f/u today. Pt states feeling overall well, but is concerned about the edema of her R foot. Denies any other new concerns. Review of Systems Review of Systems: All systems reviewed & are unremarkable except as noted in HPI & below Physical Exam Constitutional: WD/WN, vitals as above cooperative and comfortable; not in distress Cardiovascular: Rate/Rhythm: regular rate and regular rhythm Vessels: posterior tibial pulses present (LLE AKA, RLE palpable) and dorsalis pedis pulses present (LLE AKA, RLE palpable); + abnormal peripheral pulses Extremities: normal capillary refill and + edema (RLE edema improved, now only edema of foot. ) Skin: + wound (R groin healthy granulation, minimal slough. ); no erythema (Significantly improved since 2 days ago. ) Neurologic: moves all extremities; no focal motor deficits and not confused Psychiatric: A+Ox3, euthymic affect Results & Data Vital Signs (Past 12 Hours) Vital Signs Temp Pulse Resp BP Pulse Ox 12/15/19 07:16 36.5 C 55 L 18 138/66 99 12/15/19 03:05 37.0 C 61 16 118/65 97
[2019-12-15] MEDS: TRAMADOL HCL 50 MG TABLET PO PRN ×2 (14:47→23:39)
[2019-12-16] MEDS: HEPARIN SOD 5,000 UNIT/0.5 ML VIAL SQ SCH ×3 (06:08→21:25)
[2019-12-16] MEDS: FLUTICASONE/VILANTEROL 100/25MCG 14 PUFFS/INHALER INH SCH (08:15)
[2019-12-16] MEDS: UMECLIDINIUM BROMIDE 62.5MCG/BLISTER 7 PUFFS/INHALER INH SCH (08:16)
[2019-12-16] MEDS: FERROUS GLUCONATE 324 MG TAB PO SCH ×3 (08:16→21:26)
[2019-12-16] MEDS: LACTOBACILLUS ACIDOPHILUS (FLORANEX) TAB PO SCH (08:16)
[2019-12-16] MEDS: VITAMIN B COMPLEX TAB PO SCH (08:17)
[2019-12-16] MEDS: PANTOprazole 40 MG TAB PO SCH (08:17)
[2019-12-16] MEDS: OMEGA-3 (PURIFIED FISH OIL) 1 GM CAP PO SCH (08:17)
[2019-12-16] MEDS: METOPROLOL SUCC 25MG EXT REL TAB PO SCH (08:17)
[2019-12-16] MEDS: cefUROXime axetil 500 MG TAB PO SCH ×2 (08:17→21:28)
[2019-12-16] MEDS: ASPIRIN 81 MG ECTAB PO SCH (08:17)
[2019-12-16] MEDS: MULTIVITAMIN TAB PO SCH (08:17)
[2019-12-16] MEDS: MAGNESIUM OXIDE 400 MG TAB PO SCH (08:17)
[2019-12-16] MEDS: ATORVASTATIN 40 MG TAB PO SCH (08:18)
[2019-12-16] MEDS: NICOTINE 7 MG/24 HR TDSY TD SCH (08:18)
[2019-12-16] MEDS: FOLIC ACID 1 MG TAB PO SCH (08:18)
[2019-12-16] MEDS: GABAPENTIN 800 MG TAB PO SCH ×3 (08:18→21:28)
[2019-12-16] MEDS: COLCHICINE 0.6 MG TAB PO SCH ×2 (09:21→21:27)
[2019-12-16] MEDS: VANCOMYCIN HCL 750 MG in SODIUM CHLORIDE 0.9% 250 ML IV SCH ×2 (09:21→22:43)
--- NOTE | 2019-12-16 16:24 | Progress Note ---
DATE: 12/16/2019 She has had surgery on her right leg wound. Right knee feels better. Both elbows were about the same. Her neck bothers her. There is no knee effusion or tenderness. She has range of motion approximately 0-110 degrees. Plan is to change her to allopurinol when appropriate. She can follow up with me as an outpatient for evaluation of her other musculoskeletal issues. Cultures no growth to date.
[2019-12-16] MEDS: TRAMADOL HCL 50 MG TABLET PO PRN (18:30)
--- NOTE | 2019-12-16 19:32 | Hospitalist Progress Note ---
Date of Service December 16, 2019 Assessment & Plan (1) Cellulitis of right lower extremity: Cellulitis RLE with drainage from surgical wounds. Does not appear to be septic. Wound culture from right groin growing MRSA. Clinically improved. Afebrile for 48+ hrs Procalcitonin 12/12 0.09. Debridement of right leg wound with placement of wound vac performed 12/14. Receiving IV vancomycin. Consult ID for their recommendations regarding further management. (2) S/P vascular surgery: S/P right common femoral endarterectomy vein patch graft, right femoral to posterior tibial artery in situ bypass 11/02/19. Vascular Surgery consulted. Debridement of right leg wound with placement of wound vac performed 12/14. Acute blood loss anemia - post surgery - current. Hgb 10.9 - cont. to monitor (3) Gout: Severe right knee pain with effusion. Differential diagnosis included septic or inflammatory arthritis. Ortho consulted. Arthrocentesis performed. WBC - 10,966 crystals - gout gram stain - few WBC's, no organisms C&S - negative so far Colchicine ordered. Uric acid 8.1. Start allopurinol once acute flare resolved. (4) Metabolic encephalopathy: Altered mental status at time of admission. No acute WASTE PICKER findings on CT. Probable metabolic encephalopathy / delirium from infection. Resolved. (5) Sinusitis, acute, maxillary: Right maxillary sinusitis noted on CT head. Has some sinus pain and drainage. Initially received IV vancomycin and cefepime. Transitioned to PO Rx with cefuroxime. (6) CAD (coronary artery disease): Stable. Continue aspirin, metoprolol, statin. (7) Chronic combined systolic and diastolic CHF (congestive heart failure): Compensated. No JUAN JOSE or ARB due to CKD. Continue metoprolol succinate. Diuretics currently on hold due to KADEN; diurese as needed. (8) HTN (hypertension): Continue metoprolol. (9) COPD (chronic obstructive pulmonary disease): Pulmonary status stable. (10) Cirrhosis of liver: LFT's OK except for elevated alk phos. NH3 27. (11) CKD (chronic kidney disease), stage III: Serum creatinine 1.36 at time of admission. Acute kidney injury secondary to infection. Creatinine today = 0.87 Follow. (12) Diabetes mellitus type 2, diet-controlled: Glucose at time of admission 118. Check Hgb A1C. Insulin coverage as needed. (13) Rheumatoid arthritis: Need to hold MTX due to active infection. (14) DVT prophylaxis: SQ heparin. (15) Discharge planning issues: Plan to d/c home with home health. Family Medicine follow-up with Dr. Dudley. Subjective Patient sitting up in bed, in no acute distress, she is s/p RLE wound debridement and wound vac placement, by vascular surgery on 12/14 Denies any fevers, chills, chest pain, shortness of breath, abdominal pain, nausea or vomiting. She has good appetite. ID consulted for further Abx management. Plan for Dalvance as outpt. Plan to discharge with home health tomorrow. Review of Systems Review of Systems: All systems reviewed & are unremarkable except as noted in HPI & below Constitutional: no fever and no chills Respiratory: no cough, no dyspnea and no pain on inspiration Cardiovascular: no chest pain and no palpitations Gastrointestinal: no abdominal pain, no nausea and no vomiting Physical Exam Physical Exam: Constitutional: Elderly female, sitting up in bed, in no acute distress Eyes: EOMI, PERRL, + anicteric sclerae Respiratory: no respiratory distress, CTAB no wheezes, rhonchi, or crackles Cardiovascular: Rate/Rhythm: regular rate and regular rhythm Heart Sounds: + murmur (III/ sys murmur at base); no gallop and no cardiac rub Vessels: no JVD Extremities: + edema (trace right pretibial) Gastrointestinal (Abdomen): normal bowel sounds, soft, nontender, nondistended Musculoskeletal: Extremities: extremities normal to inspection (effusion / tenderness right knee, improved), + amputation noted (left BKA) and + foot abnormality (Charcot deformity right foot), wound VAC on right medial calf Skin: + rash (erythema right medial thigh and right leg, improved) Psychiatric: Orientation: alert and oriented x 3 Results & Data ([facility]) Vital Signs (Past 12 Hours) Vital Signs Temp Pulse Pulse Resp BP BP Pulse Ox 12/16/19 15:49 56 L 12/16/19 14:56 36.9 C 56 L 16 126/61 99 12/16/19 11:15 37.0 C 59 L 18 124/71 95 12/16/19 08:00 55 L Medications Administered Current Inpatient Medications Acetaminophen (Tylenol) 650 mg PO Q4H PRN PRN Reason: Pain or Fever Stop: 01/09/20 20:34 Last Admin: 12/15/19 21:31 Dose: 650 mg Documented by: Albuterol (Duoneb) 3 ml INH Q6H PRN PRN Reason: Shortness Of Breath Or Wheezing Stop: 01/09/20 20:34 Last Admin: 12/12/19 21:05 Dose: 3 ml Documented by: Aspirin (Ecotrin Ectab) 81 mg PO DAILY [facility] Stop: 01/10/20 08:59 Last Admin: 12/16/19 08:17 Dose: 81 mg Documented by: Atorvastatin Calcium (Lipitor) 80 mg PO DAILY [facility] Stop: 01/10/20 08:59 Last Admin: 12/16/19 08:18 Dose: 80 mg Documented by: Cefuroxime Axetil (Ceftin) 500 mg PO BID [facility] Stop: 12/22/19 20:59 Last Admin: 12/16/19 08:17 Dose: 500 mg Documented by: Colchicine (Colcrys) 0.6 mg PO BID [facility] Stop: 01/12/20 20:59 Last Admin: 12/16/19 09:21 Dose: 0.6 mg Documented by: Ferrous Gluconate (Ferrous Gluconate) 324 mg PO TID [facility] Stop: 01/09/20 20:59 Last Admin: 12/16/19 13:16 Dose: 324 mg Documented by: Fish Oil ([place]-3 (Purified Fish Oil)) 1 gm PO DAILY [facility] Stop: 01/10/20 08:59 Last Admin: 12/16/19 08:17 Dose: 1 gm Documented by: Fluticasone/Vilanterol (Breo Ellipta 100/25 Mcg Inh) 1 puffs INH DAILY [facility]; Protocol Stop: 01/10/20 08:59 Last Admin: 12/16/19 08:15 Dose: 1 puffs Documented by: Folic Acid (Folvite) 1 mg PO DAILY [facility] Stop: 01/10/20 08:59 Last Admin: 12/16/19 08:18 Dose: 1 mg Documented by: Gabapentin (Neurontin) 800 mg PO TID [facility] Stop: 01/11/20 13:59 Last Admin: 12/16/19 13:17 Dose: 800 mg Documented by: Heparin Sodium (Porcine) (Heparin Sodium (Porcine)) 5,000 units SQ Q8 [facility] Stop: 01/09/20 21:59 Last Admin: 12/16/19 13:17 Dose: Not Given Documented by: Vancomycin HCl 750 mg/ Sodium (Chloride) 265 mls @ 125 mls/hr IV Q12H [facility]; Protocol Stop: 12/21/19 09:59 Last Infusion: 12/16/19 11:30 Dose: Infused Documented by: Lactobacillus Acidophilus (Floranex) 4 tab PO DAILY [facility] Stop: 01/10/20 08:59 Last Admin: 12/16/19 08:16 Dose: 4 tab Documented by: Magnesium Oxide (Mag-Ox) 400 mg PO DAILY [facility] Stop: 01/10/20 08:59 Last Admin: 12/16/19 08:17 Dose: 400 mg Documented by: Metoprolol Succinate (Toprol Xl) 12.5 mg PO DAILY [facility] Stop: 01/10/20 08:59 Last Admin: 12/16/19 08:17 Dose: 12.5 mg Documented by: Miscellaneous (Remove Nicoderm Patch) 1 ea N/A DAILY@0859 [facility] Stop: 01/14/20 08:58 Last Admin: 12/16/19 08:18 Dose: 1 ea Documented by: Miscellaneous Information (Consult) 1 ea N/A UD PRN PRN Reason: Consult Stop: 01/09/20 20:42 Multivitamins (Multivitamin Tab) 1 tab PO DAILY [facility] Stop: 01/10/20 08:59 Last Admin: 12/16/19 08:17 Dose: 1 tab Documented by: Nicotine (Nicoderm Cq) 7 mg TD QAM [facility] Stop: 01/13/20 15:44 Last Admin: 12/16/19 08:18 Dose: Not Given Documented by: Pantoprazole Sodium (Protonix) 40 mg PO DAILY [facility] Stop: 01/10/20 08:59 Last Admin: 12/16/19 08:17 Dose: 40 mg Documented by: Tramadol HCl (Ultram) 50 mg PO Q8H PRN PRN Reason: Moderate Pain Stop: 01/10/20 11:16 Last Admin: 12/16/19 18:30 Dose: 50 mg Documented by: Umeclidinium [place] (Incruse Ellipta) 1 puffs INH DAILY [facility]; Protocol Stop: 01/10/20 08:59 Last Admin: 12/16/19 08:16 Dose: 1 puffs Documented by: Vitamin B Complex (Vitamin B Complex) 1 tab PO DAILY [facility] Stop: 01/10/20 08:59 Last Admin: 12/16/19 08:17 Dose: 1 tab Documented by:
[2019-12-16] MEDS: ACETAMINOPHEN 325 MG TAB PO PRN (21:24)
[2019-12-17] MEDS: HEPARIN SOD 5,000 UNIT/0.5 ML VIAL SQ SCH ×2 (05:30→13:11)
[2019-12-17 07:44] LABS: Creatinine Clr Calc Pharmacy 43.1 ml/min; Est GFR (African American) 61.3; Est GFR (Non-African American) 52.9
[2019-12-17] MEDS: ACETAMINOPHEN 325 MG TAB PO PRN (08:01)
[2019-12-17] MEDS: MULTIVITAMIN TAB PO SCH (08:02)
[2019-12-17] MEDS: FERROUS GLUCONATE 324 MG TAB PO SCH ×2 (08:02→13:11)
[2019-12-17] MEDS: METOPROLOL SUCC 25MG EXT REL TAB PO SCH (08:02)
[2019-12-17] MEDS: ATORVASTATIN 40 MG TAB PO SCH (08:02)
[2019-12-17] MEDS: LACTOBACILLUS ACIDOPHILUS (FLORANEX) TAB PO SCH (08:02)
[2019-12-17] MEDS: FLUTICASONE/VILANTEROL 100/25MCG 14 PUFFS/INHALER INH SCH (08:03)
[2019-12-17] MEDS: UMECLIDINIUM BROMIDE 62.5MCG/BLISTER 7 PUFFS/INHALER INH SCH (08:03)
[2019-12-17] MEDS: MAGNESIUM OXIDE 400 MG TAB PO SCH (08:03)
[2019-12-17] MEDS: cefUROXime axetil 500 MG TAB PO SCH (08:04)
[2019-12-17] MEDS: OMEGA-3 (PURIFIED FISH OIL) 1 GM CAP PO SCH (08:04)
[2019-12-17] MEDS: ASPIRIN 81 MG ECTAB PO SCH (08:04)
[2019-12-17] MEDS: FOLIC ACID 1 MG TAB PO SCH (08:04)
[2019-12-17] MEDS: VITAMIN B COMPLEX TAB PO SCH (08:04)
[2019-12-17] MEDS: COLCHICINE 0.6 MG TAB PO SCH (08:04)
[2019-12-17] MEDS: PANTOprazole 40 MG TAB PO SCH (08:04)
[2019-12-17] MEDS: GABAPENTIN 800 MG TAB PO SCH ×2 (08:04→13:11)
[2019-12-17] MEDS: NICOTINE 7 MG/24 HR TDSY TD SCH (08:05)
[2019-12-17] MEDS: VANCOMYCIN HCL 750 MG in SODIUM CHLORIDE 0.9% 250 ML IV SCH (09:48)
[2019-12-17] MEDS: TRAMADOL HCL 50 MG TABLET PO PRN (09:48)
--- NOTE | 2019-12-17 13:22 | Discharge Summary ---
Date of Service December 17, 2019 Admission HPI Per Admitting Provider 69-year-old female who presents the ED for evaluation of altered mental status. Patient's two daughters are at the bedside who provide the history. Yesterday, it was noted that patient developed generalized weakness and she was unable to get up out of her wheelchair. She was incontinent of stool and urine. This is not usual for her. Today, when patient's visiting nurse arrived she found her very confused and lethargic. Patient recently underwent RLE vascular intervention on 11/02/2020 for severe PAD and nonhealing wounds. Patient had been taking clindamycin for right lower extremity cellulitis and completed the course yesterday. No reports of fevers or chills. Denies, dizziness, diaphoresis, syncopal event. Denies chest pain shortness of breath. No abdominal pain, nausea, vomiting, diarrhea. Denies urinary symptoms. In the ED, patient was found to have low-grade temp at 37.6 labs show mildly elevated BUN and creatinine. Patient was given IVF and IV cefepime for suspected right lower extremity cellulitis. Admission Exam Per Admitting Provider General: Drowsy but wakes on touch. In no obvious distress Eyes: PERRL, conjunctivae normal, not pale, anicteric sclerae, EOM intact bilaterally ENMT: External ear and nose normal, oropharynx normal Neck: Normal visual inspection, no tracheal deviation, no swelling noted Respiratory: Normal respiratory effort, no respiratory distress, lungs clear to auscultation, no crackles and no wheezes Cardiovascular: Pulse is RRR. S1 S2, systolic ejection murmur at base, right leg edema Chest (Breasts): Chest: normal inspection of chest Gastrointestinal (Abdomen): Abdomen is not distended, soft, non-tender to palpation, no guarding, no palpable hepatosplenomegaly, normal bowel sounds Musculoskeletal: No cyanosis or clubbing, Left BKA stump (no wounds), Right leg - edema, erythematous, small wound with stained dressing, no purulent drainage Genitourinary: No CVA tenderness, no suprapubic tenderness. Right groin wound with dressing stained with purulent drainage, some slough, no drainage expressed. Skin: Ulcers as noted above under Musculoskeletal and Genitourinary exam Neurologic: Drowsy but arousable to touch. Oriented to person and place only on arousal. No focal weakness, sensation grossly intact Principal Diagnosis Metabolic encephalopathy, cellulitis of right lower extremity Discharge Exam Constitutional: Elderly female, sitting up in bed, in no acute distress Eyes: EOMI, PERRL, + anicteric sclerae Respiratory: no respiratory distress, CTAB no wheezes, rhonchi, or crackles Cardiovascular: Rate/Rhythm: regular rate and regular rhythm Heart Sounds: + murmur (III/ sys murmur at base); no gallop and no cardiac rub Vessels: no JVD Extremities: + edema (trace right pretibial) Gastrointestinal (Abdomen): normal bowel sounds, soft, nontender, nondistended Musculoskeletal: Extremities: extremities normal to inspection (effusion / tenderness right knee, improved), + amputation noted (left BKA) and + foot abnormality (Charcot deformity right foot), wound VAC on right medial calf Skin: + rash (erythema right medial thigh and right leg, improved) Psychiatric: Orientation: alert and oriented x 3 Discharge Data Allergies Allergy/AdvReac Type Severity Reaction Status Date / Time Penicillins Allergy Intermediate hives/upset Verified 12/14/19 08:51 stomach/diarrhea Iodinated Contrast Media AdvReac Intermediate severe Verified 12/14/19 08:51 [Iodinated Contrast- Oral vomiting and IV Dye] oxycodone [From Percocet] AdvReac Intermediate vomiting Verified 12/14/19 08:51 Consultations 12/10/19 17:24 ED Decision to Admit Stat 12/10/19 20:35 Consult Case Management - Discharge Planning Routine 12/11/19 11:04 Consult Vascular Surgery Routine 12/11/19 11:07 Consult Orthopedic Surgery Routine 12/14/19 11:15 Consult Case Management - Discharge Planning Routine 12/14/19 16:08 Consult Infectious Diseases Routine Procedures Performed Operation Date: 12/14/19 09:20 Actual Procedures p Right Leg Wound Debridement with Wound Vac Application(Right) - Elijah Park MD Ordered Studies 12/10/19 18:06 CT head/brain wo con Urgent 12/12/19 10:00 US arterial duplex LE RT Routine Hospital Course (1) Cellulitis of right lower extremity: Cellulitis RLE with drainage from surgical wounds. Does not appear to be septic. Wound culture from right groin growing MRSA. Clinically improved. Afebrile for 48+ hrs Procalcitonin 12/12 0.09. Debridement of right leg wound with placement of wound vac performed 12/14. Receiving IV vancomycin while inpt. Consulted ID regarding further management. Patient will start Dalvance, on Friday (December 20). This patient is being discharged today, on Friday, December 17, she will take Bactrim in the meantime. (2) S/P vascular surgery: S/P right common femoral endarterectomy vein patch graft, right femoral to posterior tibial artery in situ bypass 11/02/19. Vascular Surgery consulted. Debridement of right leg wound with placement of wound vac performed 12/14. Acute blood loss anemia - post surgery - current. Hgb 10.9 - cont. to monitor (3) Gout: Severe right knee pain with effusion. Differential diagnosis included septic or inflammatory arthritis. Ortho consulted. Arthrocentesis performed. WBC - 10,966 crystals - gout gram stain - few WBC's, no organisms C&S - negative so far Colchicine ordered. Uric acid 8.1. Start allopurinol once acute flare resolved. (4) Metabolic encephalopathy: Altered mental status at time of admission. No acute M[employer] findings on CT. Probable metabolic encephalopathy / delirium from infection. Resolved. (5) Sinusitis, acute, maxillary: Right maxillary sinusitis noted on CT head. Had some sinus pain and drainage. Initially received IV vancomycin and cefepime. Transitioned to PO cefuroxime. Finished Abx course. (6) CAD (coronary artery disease): Stable. Continue aspirin, metoprolol, statin. (7) Chronic combined systolic and diastolic CHF (congestive heart failure): Compensated. No JUAN JOSE or ARB due to CKD. Continue metoprolol succinate. Diuretics currently on hold due to KADEN; diurese as needed. (8) HTN (hypertension): Continue metoprolol. (9) COPD (chronic obstructive pulmonary disease): Pulmonary status stable. (10) Cirrhosis of liver: LFT's OK except for elevated alk phos. NH3 27. (11) CKD (chronic kidney disease), stage III: Serum creatinine 1.36 at time of admission. Acute kidney injury secondary to infection. Creatinine today = 1.07 Follow. (12) Diabetes mellitus type 2, diet-controlled: Glucose at time of admission 118. Check Hgb A1C. Insulin coverage as needed. (13) Rheumatoid arthritis: Need to hold MTX due to active infection. (14) DVT prophylaxis: SQ heparin. (15) Discharge planning issues: Plan to d/c home with home health. Family Medicine follow-up with Dr. Dudley. Vascular surgery follow-up in 2 weeks. IV Dalvance as outpt/ [facility], per ID Total Time Total Time Spent Total Time Spent (In Minutes): 40 Total Time Includes: Examination of the Patient, Discharge Planning, Medication Reconciliation and Communication With Other Providers Discharge Plan Discharge Items Patient Disposition: Home - Home Health Services Reason For Visit: ALTERED MENTAL STATUS Discharge Diagnosis: Metabolic encephalopathy, cellulitis of right lower extremity Activity: Resume your previous activity Activity Comment: as tolerated Non-emergency contact: Primary Care Provider and Surgeon Call non-emergency contact if: you have any medication questions and your symptoms worsen Follow-up/Referrals: Chadd Dudley MD [Primary Care Provider] - 12/22/19 10:45 am Diet: Heart Healthy Addtl Attending Provider Instructions: Follow-up with your primary care doctor, on December 22. Your diuretics, spironolactone and furosemide, were held during your admission. Make sure to check your blood pressure at home, and keep a log of these numbers. Bring this log to your primary care provider so your blood pressure medications can be further adjusted. Do not take your spironolactone or furosemide until you see your primary care doctor. Citalopram/Celexa, was also held during your admission here, discuss with your primary care doctor, if/when to restart this. Follow-up with vascular surgery in 2 weeks in their office. In the meantime home health nursing will be available for VAC changes Friday/ Friday/ Friday. Start taking antibiotic, Bactrim DS, tonight (December 17), and continue taking throughout the weekend until you receive your first dose of Dalvance. Do not take methotrexate while you are being treated for infection. Pending Studies at Discharge: Yes Stand-Alone Forms: My [employer], Smoking Cessation Medications and DC Order Prescriptions: New sulfamethoxazole-trimethoprim [Bactrim DS] 800-160 mg tablet 1 tab PO BID Qty: 6 RF: 0 Continued aspirin [Aspir-81] 81 mg tablet,delayed release (DR/EC) 81 mg PO DAILY RF: 0 gabapentin 800 mg tablet 800 mg PO TID RF: 0 omega 4-afi-mun-fish oil [Fish Oil] 1,000 mg (120 mg-180 mg) capsule 1 cap PO DAILY RF: 0 Spiriva with HandiHaler 18 mcg capsule, w/inhalation device 1 cap INH DAILY RF: 0 magnesium oxide 400 mg magnesium Tablet 400 mg PO DAILY RF: 0 nitroglycerin 0.4 mg tablet, sublingual 0.4 mg sublingual UD PRN (Reason: Chest Pain) RF: 0 ibuprofen 200 mg Capsule 600 mg PO UD PRN (Reason: Pain) RF: 0 Culturelle 10 billion cell capsule 1 cap PO DAILY Qty: 30 RF: 2 colchicine [Colcrys] 0.6 mg tablet 0.6 mg PO DAILY RF: 0 fluticasone propionate 50 mcg/actuation spray,suspension 1 spray INTRANASAL DAILY RF: 0 atorvastatin 80 mg Tablet 80 mg PO DAILY RF: 0 ipratropium-albuterol 0.5 mg-3 mg(2.5 mg base)/3 mL Solution For Nebulization 3 ml INHALATION Q6H PRN (Reason: Shortness Of Breath Or Wheezing) RF: 0 omeprazole 40 mg Capsule,Delayed Release(Dr/Ec) 40 mg PO DAILY RF: 0 metoprolol succinate 25 mg Tablet Extended Release 24 Hr 12.5 mg PO DAILY RF: 0 ferrous gluconate 324 mg (38 mg iron) Tablet 324 mg PO TID RF: 0 Symbicort 160-4.5 mcg/actuation Hfa Aerosol Inhaler 2 puff INHALATION BID RF: 0 multivitamin Tablet 1 tab PO DAILY RF: 0 vitamin B complex Tablet 1 tab PO DAILY RF: 0 folic acid 1 mg Tablet 1 mg PO DAILY RF: 0 tramadol 50 mg Tablet 50 mg PO BID PRN (Reason: pain) RF: 0 Discontinued citalopram [Celexa] 40 mg tablet 40 mg PO DAILY RF: 0 furosemide [Lasix] 40 mg tablet 40 mg PO BID RF: 0 spironolactone 100 mg tablet 100 mg PO DAILY RF: 0 methotrexate sodium 25 mg/mL solution 15 mg subcut WK RF: 0 Discharge Orders: Discharge Order (Routine); Ordered 12/17/19 Ordered By: Joseph Wiley Admission Data Admit Date/Time: 12/10/19 18:05 Attending Provider: Joseph Wiley Admit Provider: Rosalba Mackey I. Primary Care Provider: Luis Enrique,Chadd J. Other Providers: [facility] ; Rosalba Mackey I. ; Elijah Park ; Mina Blakely ; Kaylynn Schroeder ; Monroe Castillo
== END 2019-12-17 14:06 | disposition home health service (06) | DRG 602 ==
LOC: ED 13:21 → 2S 18:05 → SUATTDRO 18:05 → 2S 19:45

== ENCOUNTER 2020-09-19 14:08 | Inpatient (IN) ==
[2020-09-19] MEDS ORDERED: SODIUM CHLORIDE 0.9% 250 ML IV PRN ×2 (14:28→20:05)
--- NOTE | 2020-09-19 14:44 | Emergency Department Note ---
History of Present Illness General Chief complaint: Abnormal Labs/Diagnostic Testing Stated complaint: BLOOD TRANSFUSIONS Time Seen by Provider: 09/19/20 14:26 Source: patient Mode of arrival: ambulatory Limitations: no limitations History of Present Illness Provider complaint: Anemia Maximum Pain Intensity: 10 This is a 69-year-old female who presents to the ED with a chief complaint of a low hemoglobin. The patient states that she had some routine blood work done today in preparation of a surgery tomorrow that she is going to have done by urologist at [facility]. The patient states that she was diagnosed with bladder cancer. She had the blood work in preparation of the surgery and she was found to be anemic with a hemoglobin of 7. The patient was told to come here for further evaluation and for blood transfusion to prepare her for surgery. The patient denies any chest pains or shortness of breath. She denies any nausea or vomiting. Denies any lightheadedness or dizziness. She has not seen any blood in her stools but she has been passing blood clots in her urine because of her tumor. This has been going on for months. Home Medications Home Medications Medication Instructions Recorded Confirmed Type aspirin 81 mg tablet,delayed 81 mg PO DAILY 07/22/18 07/21/20 History release gabapentin 800 mg tablet 800 mg PO TID tab 07/22/18 07/21/20 History omega 8-qgd-hfo-fish oil 1,000 mg 1 cap PO DAILY cap 07/22/18 07/21/20 History (120 mg-180 mg) capsule atorvastatin 80 mg PO DAILY 03/01/19 07/21/20 History ferrous gluconate 324 mg PO TID 03/01/19 07/21/20 History folic acid 1 mg PO DAILY 03/01/19 07/21/20 History metoprolol succinate 12.5 mg PO DAILY 03/01/19 07/21/20 History multivitamin 1 tab PO DAILY 03/01/19 07/21/20 History omeprazole 40 mg PO DAILY 03/01/19 07/21/20 History vitamin B complex 1 tab PO DAILY 03/01/19 07/21/20 History magnesium oxide 400 mg PO DAILY 04/05/19 07/21/20 History nitroglycerin 0.4 mg SUBLINGUAL UD PRN 04/05/19 07/21/20 History tramadol 50 mg PO BID PRN 07/15/19 07/21/20 History ibuprofen 400 mg PO HS PRN 10/25/19 07/21/20 History fluticasone propionate 1 spray INTRANASAL DAILY PRN 12/10/19 07/21/20 History allopurinol 300 mg PO DAILY 01/03/20 07/21/20 History methotrexate (PF) 30 mg/0.6 mL SQ WEEKLY ml 03/03/20 07/19/20 History subcutaneous auto-injector furosemide [Lasix] 40 mg PO BID 07/21/20 07/21/20 History prednisone 50 mg PO DIRECTED 07/21/20 07/21/20 History spironolactone [Aldactone] 100 mg PO QAM 07/21/20 07/21/20 History Allergies Allergy/AdvReac Type Severity Reaction Status Date / Time Penicillins Allergy Intermediate hives/upset Verified 07/21/20 06:45 stomach/diarrhea Iodinated Contrast Media AdvReac Intermediate severe Verified 07/21/20 06:45 [Iodinated Contrast- Oral vomiting and IV Dye] oxycodone [From Percocet] AdvReac Intermediate vomiting Verified 07/21/20 06:45 Past Med/Surg History Medical History (Updated 09/19/20 @ 17:25 by Dillan Lemon DO) Acid reflux Aortic stenosis Aortic valve regurgitation CAD (coronary artery disease) 2004 -PCI to unknown vessel Charcot foot due to diabetes mellitus Chronic combined systolic and diastolic CHF (congestive heart failure) EF 40 to 44%, grade 2 diastolic dysfunction Cirrhosis of liver "UNDETERMINED ORIGIN" CKD (chronic kidney disease), stage III pt denies having any problems with kidneys. COPD (chronic obstructive pulmonary disease) Diabetes mellitus type 2, diet-controlled Diabetic peripheral neuropathy Gout History of alcohol abuse History of anxiety History of depression History of endometriosis "STAGE 1 GRADE 1" History of sleep apnea HX CPAP HTN (hypertension) Hypercholesteremia SARANYA (iron deficiency anemia) Impaired fasting glucose A1C 6/1% 05/2019 Infected surgical wound Ischemic cardiomyopathy EF 40-44% Mitral regurgitation MRSA cellulitis PAD (peripheral artery disease) Rheumatoid arthritis Sleep apnea Snores Traumatic open wound of right lower leg Valvular heart disease Surgical History History of anesthesia reaction PT REPORTS URINARY RETENTION POST OP, USUALLY REQUIRING STRAIGHT CATH History of bilateral carotid endarterectomy History of cardiac cath 2005 ..TOLD HAD 2 AL'S - STENT X1 History of cholecystectomy History of colonoscopy History of hysterectomy supracervical History of left below knee amputation History of lumbar discectomy S/P vascular surgery 11/02/2020-right common femoral endarterectomy, right femoral and posterior tibial bypass Family History Father Family history of diabetes mellitus Family history of COPD (chronic obstructive pulmonary disease) Sister Breast cancer Social History Smoking Status: Current every day smoker Years Smoked: 54; Cigarettes Per Day: 1-3; Second Hand Exposure: Yes; Hx Alcohol Use: No Hx Substance Use: No Preferred Language: Ukrainian Communication Ability: Effective Visual Impairment: Limited Hearing Ability: Normal Cbx Operator Required: No Beliefs That Will Affect Care: None marital status: Current Living Situation: Spouse current occupational status: disabled Feels Safe at Home: Yes Assistive Devices: Denture - Upper, Denture - Lower, Glasses, Prosthesis, Walker and Wheelchair Review of Systems A total of 10 systems reviewed and were otherwise negative Physical Exam Vital Signs Vital Signs - 24 hr 09/19/20 14:10 09/19/20 14:28 09/19/20 14:59 Temperature 36.9 C Temperature Source Oral Pulse Rate 90 70 Pulse Rate [Right Finger] Pulse Rate from SpO2 Sensor Respiratory Rate 20 15 Respiratory Effort / Characteristics Non-Labored Spontaneous Respiratory Depth Normal Respiratory Pattern Regular Blood Pressure 117/65 Blood Pressure [Right Arm] Blood Pressure Mean 82 Blood Pressure Mean [Right Arm] Pulse Oximetry 99 97 Oxygen Delivery Method Room Air Room Air Sepsis Recent Fever Within 48 Hours No Sepsis New/Unexplained Change in Mental Status N/A Sepsis Action Taken by Nursing No Action Required 09/19/20 15:00 09/19/20 15:30 09/19/20 16:00 Temperature Temperature Source Pulse Rate 75 70 76 Pulse Rate [Right Finger] Pulse Rate from SpO2 Sensor Respiratory Rate 14 17 22 Respiratory Effort / Characteristics Respiratory Depth Respiratory Pattern Blood Pressure 128/77 Blood Pressure [Right Arm] Blood Pressure Mean 94 Blood Pressure Mean [Right Arm] Pulse Oximetry Oxygen Delivery Method Sepsis Recent Fever Within 48 Hours Sepsis New/Unexplained Change in Mental Status Sepsis Action Taken by Nursing 09/19/20 16:22 09/19/20 16:27 09/19/20 16:28 Temperature 37.0 C Temperature Source Oral Pulse Rate 71 66 71 Pulse Rate [Right Finger] Pulse Rate from SpO2 Sensor 71 68 Respiratory Rate 17 20 17 Respiratory Effort / Characteristics Respiratory Depth Respiratory Pattern Blood Pressure 132/78 131/60 131/60 Blood Pressure [Right Arm] Blood Pressure Mean 89 83 98 Blood Pressure Mean [Right Arm] Pulse Oximetry 100 100 100 Oxygen Delivery Method Sepsis Recent Fever Within 48 Hours Sepsis New/Unexplained Change in Mental Status Sepsis Action Taken by Nursing 09/19/20 16:30 09/19/20 16:31 09/19/20 16:39 Temperature 36.8 C Temperature Source Pulse Rate 69 69 70 Pulse Rate [Right Finger] Pulse Rate from SpO2 Sensor 68 Respiratory Rate 17 12 17 Respiratory Effort / Characteristics Respiratory Depth Respiratory Pattern Blood Pressure 126/50 L 130/53 L Blood Pressure [Right Arm] Blood Pressure Mean 74 79 Blood Pressure Mean [Right Arm] Pulse Oximetry 100 Oxygen Delivery Method Sepsis Recent Fever Within 48 Hours Sepsis New/Unexplained Change in Mental Status Sepsis Action Taken by Nursing 09/19/20 16:43 09/19/20 16:44 09/19/20 16:45 Temperature Temperature Source Pulse Rate 77 69 Pulse Rate [Right Finger] 70 Pulse Rate from SpO2 Sensor 77 69 Respiratory Rate 18 14 14 Respiratory Effort / Characteristics Spontaneous Respiratory Depth Normal Respiratory Pattern Blood Pressure 125/54 L 125/57 L Blood Pressure [Right Arm] 125/54 L Blood Pressure Mean 81 87 Blood Pressure Mean [Right Arm] 77 Pulse Oximetry 100 97 99 Oxygen Delivery Method Room Air Sepsis Recent Fever Within 48 Hours Sepsis New/Unexplained Change in Mental Status Sepsis Action Taken by Nursing CONSTITUTIONAL/VITAL SIGNS: Reviewed / noted above. GENERAL: Non-toxic in appearance. INTEGUMENTARY: Warm, dry, and [place]. HEAD: Normocephalic. EYES: without scleral icterus or trauma. ENT/OROPHARYNX: clear and moist. LYMPHADENOPATHY/NECK: Is supple without lymphadenopathy or meningismus. RESPIRATORY: Lungs clear and equal. CARDIOVASCULAR: Regular rate and rhythm. GI/ABDOMEN: Soft and nontender. No organomegaly or pulsatile mass. No rebound or guarding. Normal bowel sounds. EXTREMITIES: Warm and well perfused. BACK: No CVA tenderness. NEUROLOGICAL: Intact without focal deficits. PSYCHIATRIC: normal affect. MUSCULOSKELETAL: Normally developed with good muscle tone. RECTAL: No stool on exam. Guaiac negative. TRIAGE NURSING DOCUMENTATION REVIEWED. Critical Care Time Critical Care Time: Yes Total Critical Care Time: 30 I have personally spent 30 minutes of critical care time in the direct management of this patient. This includes bedside care, interpretation of diagnostic studies, and testing, discussion with consultants, patient, and family members, and other required patient management activities. This 30 minutes is in excess of all separately billable procedures. Medical Decision Making Differential Diagnosis Differential includes acute coronary syndrome, myocardial infarction, CVA, TIA, anemia, infection, pneumonia, UTI, pyelonephritis, poor nutrition, dehydration, electrolyte disturbance,hypoglycemia. Medical Records Attestation: I reviewed the patient's medical records. Home Medications Current Medication List: was personally reviewed by me Laboratory Data Attestation: I reviewed the patient's lab results. Result diagrams: 09/19/20 14:41 09/19/20 14:41 Lab Results 09/19/20 09/19/20 09/19/20 Range/Units 14:41 14:41 14:41 WBC 6.85 (4.8-10.8) K/uL RBC 2.58 L (4.2-5.4) M/uL Hgb 6.8 L* (12.0-16.0) g/dL Hct 23.3 L (37-47) % MCV 90.3 (80-100) fL MCH 26.4 (25-34) pg MCHC 29.2 L (32-36) g/dL RDW Std Deviation 49.0 H (36.4-46.3) fL RDW Coeff of Tiburcio 14.9 H (11.5-14.5) % Plt Count 242 (130-400) K/uL MPV 10.1 (7.4-10.4) fL Immature Gran % (Auto) 0.1 % Neut % (Auto) 84.4 % Lymph % (Auto) 10.7 % Wood % (Auto) 4.5 % Eos % (Auto) 0.0 % Baso % (Auto) 0.3 % Neut # (Auto) 5.78 (1.4-6.5) K/uL Lymph # (Auto) 0.73 L (1.2-3.4) K/uL Wood # (Auto) 0.31 (0.11-0.59) K/uL Eos # (Auto) 0.00 (0-0.5) K/uL Baso # (Auto) 0.02 (0-0.2) K/uL Immature Gran # (Auto) 0.01 (0.00-0.02) K/uL Polychromasia 1+ PT 10.9 (9.0-12.0) Seconds INR 1.0 (0.9-1.1) APTT 22.1 (21.0-31.0) Seconds PTT Ratio 0.8 Sodium (136-145) mmol/L Potassium (3.5-5.1) mmol/L Chloride (98-107) mmol/L Carbon Dioxide (21-32) mmol/L Anion Gap (3-11) BUN (7-18) mg/dl Creatinine (0.6-1.2) mg/dl Est Cr Clr Drug Dosing ml/min Est GFR ( Amer) Est GFR (Non-Af Amer) BUN/Creatinine Ratio (10-20) Glucose (70-99) mg/dl Calcium (8.5-10.1) mg/dl Total Bilirubin (0.2-1) mg/dl AST (15-37) U/L ALT (12-78) U/L Alkaline Phosphatase (45-117) U/L Troponin I (0-0.045) ng/ml Total Protein (6.4-8.2) gm/dl Albumin (3.4-5.0) gm/dl Globulin (2.5-4.0) gm/dl Albumin/Globulin Ratio (0.9-2) POC Stool Occult Blood (Negative) Blood Type A Positive Antibody Screen NEGATIVE Crossmatch See Detail 09/19/20 09/19/20 Range/Units 14:41 Unknown WBC (4.8-10.8) K/uL RBC (4.2-5.4) M/uL Hgb (12.0-16.0) g/dL Hct (37-47) % MCV (80-100) fL MCH (25-34) pg MCHC (32-36) g/dL RDW Std Deviation (36.4-46.3) fL RDW Coeff of Tiburcio (11.5-14.5) % Plt Count (130-400) K/uL MPV (7.4-10.4) fL Immature Gran % (Auto) % Neut % (Auto) % Lymph % (Auto) % Wood % (Auto) % Eos % (Auto) % Baso % (Auto) % Neut # (Auto) (1.4-6.5) K/uL Lymph # (Auto) (1.2-3.4) K/uL Wood # (Auto) (0.11-0.59) K/uL Eos # (Auto) (0-0.5) K/uL Baso # (Auto) (0-0.2) K/uL Immature Gran # (Auto) (0.00-0.02) K/uL Polychromasia PT (9.0-12.0) Seconds INR (0.9-1.1) APTT (21.0-31.0) Seconds PTT Ratio Sodium 132 L (136-145) mmol/L Potassium 4.8 (3.5-5.1) mmol/L Chloride 98 (98-107) mmol/L Carbon Dioxide 29 (21-32) mmol/L Anion Gap 5.0 (3-11) BUN 45 H (7-18) mg/dl Creatinine 1.41 H (0.6-1.2) mg/dl Est Cr Clr Drug Dosing 33.8 ml/min Est GFR ( Amer) 43.9 Est GFR (Non-Af Amer) 37.9 BUN/Creatinine Ratio 32.0 H (10-20) Glucose 98 (70-99) mg/dl Calcium 8.9 (8.5-10.1) mg/dl Total Bilirubin 0.3 (0.2-1) mg/dl AST 16 (15-37) U/L ALT 22 (12-78) U/L Alkaline Phosphatase 147 H (45-117) U/L Troponin I 0.050 H* (0-0.045) ng/ml Total Protein 7.2 (6.4-8.2) gm/dl Albumin 3.3 L (3.4-5.0) gm/dl Globulin 3.9 (2.5-4.0) gm/dl Albumin/Globulin Ratio 0.8 L (0.9-2) POC Stool Occult Blood Negative (Negative) Blood Type Antibody Screen Crossmatch ECG Data Attestation: I personally reviewed and interpreted this ECG as follows: Indication: + weakness Rate (beats per minute): 70 ECG Intervals/blocks: + Normal QT-c ECG ST segments: no ST elevation ECG Findings: + PVCs MDM Narrative The patient presents with a report of hemoglobin of 7 from a routine blood analysis earlier today. She was told to come here for blood transfusion in preparation of her bladder surgery tomorrow at [facility]. She denies any specific complaints other than relatively frequent passing of blood c lots from her bladder from her bladder cancer. The patient's hemoglobin is 6.8. BUN is 45 and creatinine is 1.41. The patient's troponin is mildly elevated. I did speak to the hospitalist service here. She was transfused 2 units of blood during her ED stay. The patient will be seen by the hospitalist for further evaluation. I did speak with [facility] (Dr. Wolfe), who recommended that the patient be evaluated here and her surgery can be rescheduled. Impression & Plan Anemia, Bladder cancer, Elevated troponin Discharge Plan Visit Data Chief Complaint: Abnormal Labs/Diagnostic Testing Stated Complaint: BLOOD TRANSFUSIONS ED Provider: Dillan Lemon Discharge Problem: Anemia, Bladder cancer, Elevated troponin Patient Disposition: Being Evaluated by Hospitalist Forms Stand Alone Forms: My [facility], Virtual Emergency Department, Important Visit Information Prescriptions Prescriptions: No Action methotrexate (PF) 30 mg/0.6 mL auto-injector SQ WEEKLY RF: 0 aspirin [Aspir-81] 81 mg tablet,delayed release (DR/EC) 81 mg PO DAILY RF: 0 gabapentin 800 mg tablet 800 mg PO TID RF: 0 omega 1-cmb-dvu-fish oil [Fish Oil] 1,000 mg (120 mg-180 mg) capsule 1 cap PO DAILY RF: 0 magnesium oxide 400 mg magnesium Tablet 400 mg PO DAILY RF: 0 nitroglycerin 0.4 mg tablet, sublingual 0.4 mg sublingual UD PRN (Reason: Chest Pain) RF: 0 ibuprofen 200 mg Capsule 400 mg PO HS PRN (Reason: Pain) RF: 0 fluticasone propionate 50 mcg/actuation spray,suspension 1 spray INTRANASAL DAILY PRN (Reason: Allergy Symptoms) RF: 0 allopurinol 300 mg Tablet 300 mg PO DAILY RF: 0 atorvastatin 80 mg Tablet 80 mg PO DAILY RF: 0 omeprazole 40 mg Capsule,Delayed Release(Dr/Ec) 40 mg PO DAILY RF: 0 metoprolol succinate 25 mg Tablet Extended Release 24 Hr 12.5 mg PO DAILY RF: 0 ferrous gluconate 324 mg (38 mg iron) Tablet 324 mg PO TID RF: 0 multivitamin Tablet 1 tab PO DAILY RF: 0 vitamin B complex Tablet 1 tab PO DAILY RF: 0 folic acid 1 mg Tablet 1 mg PO DAILY RF: 0 tramadol 50 mg Tablet 50 mg PO BID PRN (Reason: pain) RF: 0 furosemide [Lasix] 40 mg Tablet 40 mg PO BID RF: 0 spironolactone [Aldactone] 100 mg Tablet 100 mg PO QAM RF: 0 prednisone 50 mg Tablet 50 mg PO DIRECTED RF: 0 Referrals Referrals: Chadd Dudley MD [Primary Care Provider] - Discharge Problem: Anemia Qualifiers: Anemia type: unspecified type Qualified Code(s): D64.9 - Anemia, unspecified Bladder cancer Qualifiers: Bladder location: unspecified site Qualified Code(s): C67.9 - Malignant neoplasm of bladder, unspecified
[2020-09-19 15:17] LABS: Partial Thromboplastin Ratio 0.8; Partial Thromboplastin Time 22.1 Seconds (21.0-31.0); Prothrombin Time 10.9 Seconds (9.0-12.0)
[2020-09-19 15:20] LABS: Hematocrit (blood only) 23.3 % (37-47); Hemoglobin 6.8 g/dL (12.0-16.0); Mean Corpuscular Hemoglobin 26.4 pg (25-34); Mean Corpuscular Hgb Conc 29.2 g/dL (32-36); Mean Corpuscular Volume 90.3 fL (80-100); Mean Platelet Volume 10.1 fL (7.4-10.4); Platelet Count 242 K/uL (130-400); RDW Coefficient of Variation 14.9 % (11.5-14.5); Red Blood Count 2.58 M/uL (4.2-5.4); White Blood Count 6.85 K/uL (4.8-10.8)
[2020-09-19 15:31] LABS: Albumin Level 3.3 gm/dl (3.4-5.0); Calcium 8.9 mg/dl (8.5-10.1); Creatinine Clr Calc Pharmacy 33.8 ml/min; Est GFR (African American) 43.9; Est GFR (Non-African American) 37.9; Potassium 4.8 mmol/L (3.5-5.1)
[2020-09-19 15:32] LABS: Basophils # (auto) 0.02 K/uL (0-0.2); Basophils % (auto) 0.3 %; Immature Granulocytes # (auto) 0.01 K/uL (0.00-0.02); Immature Granulocytes % (auto) 0.1 %; Lymphocytes # (auto) 0.73 K/uL (1.2-3.4); Lymphocytes % (auto) 10.7 %; Monocytes # (auto) 0.31 K/uL (0.11-0.59); Monocytes % (auto) 4.5 %; Neutrophils # (auto) 5.78 K/uL (1.4-6.5); Neutrophils % (auto) 84.4 %; Polychromasia 1+
[2020-09-19 15:38] LABS: Albumin Globulin Ratio 0.8 (0.9-2); Bilirubin,Total 0.3 mg/dl (0.2-1); Globulin 3.9 gm/dl (2.5-4.0); Total Protein 7.2 gm/dl (6.4-8.2); Troponin I 0.05 ng/ml (0-0.045)
--- NOTE | 2020-09-19 16:09 | Electrocardiogram Report ---
Test Reason : Blood Pressure : / mmHG Vent. Rate : 070 BPM Atrial Rate : 070 BPM P-R Int : 210 ms QRS Dur : 118 ms QT Int : 454 ms P-R-T Axes : 081 -48 087 degrees QTc Int : 490 ms Sinus rhythm with 1st degree A-V block with occasional Premature ventricular complexes Left axis deviation Anterior infarct , age undetermined Abnormal ECG When compared with ECG of 10-DEC-2019 15:39, Premature ventricular complexes are now Present T wave amplitude has increased in Inferior leads Confirmed by Daniel Ibarra ([id number]) on 09/19/2020 4:08:53 PM Referred By: ED Confirmed By:Xander Ibarra
--- NOTE | 2020-09-19 18:54 | History & Physical Report ---
Date of Service September 19, 2020 Assessment & Plan (1) Anemia: -Admit to [facility] with telemetry -Patient presenting from home by referral PCP for evaluation of anemia. Had preop evaluation today and labs showed Hgb 7.0. -Has been having ongoing hematuria for the past several months, this is likely the source of patient's anemia. 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 Patient was scheduled tomorrow at [facility] for bladder mass resection. -Hemodynamically stable -Transfuse 2 unit PRBC -Follow H&H (2) CAD (coronary artery disease): (3) Elevated troponin: -Troponin 0.05, EKG without acute ST changes -Suspect demand ischemia due to anemia however patient reports an episode of chest pain last evening that was resolved nitroglycerin -Resting echo -Cardiology consult given upcoming surgery, input appreciated -Continue aspirin, statin, beta-alma (4) Squamous cell carcinoma of vagina: (5) Bladder mass: -Scheduled for bladder mass resection at [facility] tomorrow, which will need to be rescheduled -Dr. Jane, anesthesia [phone] -Dr. Mehta, urology -Dr. Chilel, [facility] [employer] oncology (6) Chronic combined systolic and diastolic CHF (congestive heart failure): (7) Aortic stenosis: -Echo 07/2020: EF 52%, grade 2 diastolic dysfunction, moderate aortic valve stenosis, moderate to severe mitral regurgitation -Appears euvolemic -Continue home diuretics (8) CKD (chronic kidney disease), stage III: -Recent baseline creatinine per outpatient chart shows creatinine 1.4-1.5 -Creatinine 1.4 today -Continue to monitor renal functions (9) PAD (peripheral artery disease): -Continue aspirin and statin (10) COPD (chronic obstructive pulmonary disease): -Appears stable, no signs of acute exacerbation -Patient reports she is no longer using inhalers (11) Rheumatoid arthritis: -Managed with methotrexate SQ weekly (12) DVT prophylaxis: -SCDs due to anemia, hematuria History of Present Illness Chief Complaint: sent by PCP for anemia Primary Care Provider: Chadd Dudley MD 69-year-old medically complex female with PMH Charcot foot, DM type II, alpha 1 antitrypsin deficiency, COPD, PAD, CAD, ischemic cardiomyopathy, diastolic CHF, aortic stenosis, CKD stage III, rheumatoid arthritis, and recently diagnosed vaginal squamous cell carcinoma and bladder mass who presents to the ED by referral PCP for evaluation of anemia. Patient was scheduled for surgery tomorrow at [facility] for a bladder mass resection. Patient was at PCPs office for preoperative evaluation and labs were obtained showing Hgb 7.0. Patient reports she has been feeling fatigued recently. She also has been having hematuria since May which prompted the work-up finding the vaginal squamous cell carcinoma and bladder mass. Patient reports she had an episode of chest pain last evening while lying in bed. Reports the pain was midsternal in nature and sharp. She took 1 sublingual nitroglycerin with resolution of the pain. Patient reports she did not tell her PCP this today during her preop eval because she was scared that she would not get cleared for surgery. Patient reports she has been feeling lightheaded and dizzy however no syncopal events. No shortness of breath. Denies abdominal pain, nausea, vomiting, diarrhea. No bright red bleeding per rectum or dark tarry stools. Denies any other recent il lnesses, fevers, chills. In the ED, Hgb 6.8. Patient is hemodynamically stable. Troponin mildly elevated 0.05. EKG does not show any acute ST changes. Patient was typed and crossed and is currently receiving PRBC transfusion. Allergies Allergy/AdvReac Type Severity Reaction Status Date / Time Penicillins Allergy Intermediate hives/upset Verified 07/21/20 06:45 stomach/diarrhea Iodinated Contrast Media AdvReac Intermediate severe Verified 07/21/20 06:45 [Iodinated Contrast- Oral vomiting and IV Dye] oxycodone [From Percocet] AdvReac Intermediate vomiting Verified 07/21/20 06:45 Home Medications Home Medications Medication Instructions Recorded Confirmed Type gabapentin 800 mg tablet 800 mg PO TID tab 07/22/18 09/19/20 History omega 0-xhw-vfy-fish oil 1,000 mg 1 cap PO DAILY cap 07/22/18 09/19/20 History (120 mg-180 mg) capsule atorvastatin 80 mg PO DAILY 03/01/19 09/19/20 History ferrous gluconate 324 mg PO TID 03/01/19 09/19/20 History folic acid 1 mg PO DAILY 03/01/19 09/19/20 History metoprolol succinate 12.5 mg PO DAILY 03/01/19 09/19/20 History multivitamin 1 tab PO DAILY 03/01/19 09/19/20 History omeprazole 40 mg PO DAILY 03/01/19 09/19/20 History vitamin B complex 1 tab PO DAILY 03/01/19 09/19/20 History magnesium oxide 400 mg PO BID 04/05/19 09/19/20 History nitroglycerin 0.4 mg SUBLINGUAL UD PRN 04/05/19 09/19/20 History tramadol 50 mg PO BID PRN 07/15/19 09/19/20 History fluticasone propionate 1 spray INTRANASAL DAILY PRN 12/10/19 09/19/20 History allopurinol 300 mg PO DAILY 01/03/20 09/19/20 History methotrexate (PF) 30 mg/0.6 mL 15 mg SQ WEEKLY ml 03/03/20 09/19/20 History subcutaneous auto-injector furosemide [Lasix] 40 mg PO BID 07/21/20 09/19/20 History spironolactone [Aldactone] 100 mg PO QAM 07/21/20 09/19/20 History aspirin [Aspirin Low Dose] 81 mg PO DAILY 09/19/20 09/19/20 History citalopram 40 mg PO DAILY 09/19/20 09/19/20 History Past Med/Surg History Medical History Acid reflux Aortic stenosis Aortic valve regurgitation Bladder mass CAD (coronary artery disease) 2004 -PCI to unknown vessel Charcot foot due to diabetes mellitus Chronic combined systolic and diastolic CHF (congestive heart failure) Cirrhosis of liver "UNDETERMINED ORIGIN" CKD (chronic kidney disease), stage III pt denies having any problems with kidneys. COPD (chronic obstructive pulmonary disease) Diabetes mellitus type 2, diet-controlled Diabetic peripheral neuropathy Gout History of alcohol abuse History of anxiety History of depression History of endometriosis "STAGE 1 GRADE 1" History of sleep apnea HX CPAP HTN (hypertension) Hypercholesteremia SARANYA (iron deficiency anemia) Impaired fasting glucose A1C 6/1% 05/2019 Ischemic cardiomyopathy EF 40-44% Mitral regurgitation PAD (peripheral artery disease) Rheumatoid arthritis Sleep apnea Snores Squamous cell carcinoma of vagina Valvular heart disease Surgical History History of anesthesia reaction PT REPORTS URINARY RETENTION POST OP, USUALLY REQUIRING STRAIGHT CATH History of bilateral carotid endarterectomy History of cardiac cath 2004 ..TOLD HAD 2 PR'S - STENT X1 History of cholecystectomy History of colonoscopy History of hysterectomy supracervical History of left below knee amputation History of lumbar discectomy S/P vascular surgery 11/02/2020-right common femoral endarterectomy, right femoral and posterior tibial bypass Family History Father Family history of diabetes mellitus Family history of COPD (chronic obstructive pulmonary disease) Sister Breast cancer Social History Smoking Status: Current every day smoker Years Smoked: 54; Cigarettes Per Day: 1-3; Second Hand Exposure: Yes; Hx Alcohol Use: No Hx Substance Use: No Preferred Language: Lao Communication Ability: Effective Visual Impairment: Limited Hearing Ability: Normal Tool Maintenance Worker Required: No Beliefs That Will Affect Care: None marital status: Current Living Situation: Spouse current occupational status: disabled Feels Safe at Home: Yes Assistive Devices: Denture - Upper, Denture - Lower, Glasses, Prosthesis, Walker and Wheelchair Review of Systems Review of Systems: ROS per HPI, all other systems reviewed and negative Physical Exam Constitutional: WD/WN, vitals as above Eyes: PERRL, conjunctivae normal, anicteric sclerae ENMT: external ear and nose normal, oropharynx normal Respiratory: normal respiratory effort; no respiratory distress Auscultation: + diminished lung sounds (Bilaterally) Cardiovascular: Rate/Rhythm: regular rate and regular rhythm Heart Sounds: + murmur (Systolic, grade 3/6) Vessels: normal peripheral pulses Extremities: no edema Gastrointestinal (Abdomen): normal bowel sounds, soft, nontender, no hepatosplenomegaly Musculoskeletal: no cyanosis or clubbing, extremities motor strength 5/5 Extremities: + amputation noted (Left BKA) Skin: no rashes, warm and dry Neurologic: PERRL, EOMI, accommodation nl, no face palsy, no dysarthria Psychiatric: A+Ox3, euthymic affect Results & Data Results & Data ([facility]) Vital Signs (Past 12 Hours) Vital Signs Temp Pulse Pulse Resp BP BP Pulse Ox 09/19/20 18:15 67 15 118/50 L 09/19/20 18:00 69 14 09/19/20 17:46 65 14 128/57 L 100 09/19/20 17:45 66 19 09/19/20 17:30 68 17 130/58 L 100 09/19/20 17:15 70 15 116/67 99 09/19/20 17:00 70 14 127/63 98 09/19/20 16:45 69 14 125/57 L 99 09/19/20 16:44 77 14 125/54 L 97 09/19/20 16:43 70 18 125/54 L 100 09/19/20 16:39 36.8 C 70 17 130/53 L 100 09/19/20 16:31 69 12 126/50 L 09/19/20 16:30 69 17 09/19/20 16:28 71 17 131/60 100 09/19/20 16:27 37.0 C 66 20 131/60 100 09/19/20 16:22 71 17 132/78 100 09/19/20 16:00 76 22 128/77 09/19/20 15:30 70 17 09/19/20 15:00 75 14 09/19/20 14:59 70 15 09/19/20 14:28 97 09/19/20 14:10 36.9 C 90 20 117/65 99 Laboratory Results Short CBC 09/19/20 Range/Units 14:41 WBC 6.85 (4.8-10.8) K/uL Hgb 6.8 L* (12.0-16.0) g/dL Hct 23.3 L (37-47) % Plt Count 242 (130-400) K/uL BMP 09/19/20 14:41 Sodium 132 L Potassium 4.8 Chloride 98 Carbon Dioxide 29 BUN 45 H Creatinine 1.41 H Glucose 98 Calcium 8.9 Cardiac Enzymes 09/19/20 Range/Units 14:41 Troponin I 0.050 H* (0-0.045) ng/ml Liver Function 09/19/20 Range/Units 14:41 Total Bilirubin 0.3 (0.2-1) mg/dl AST 16 (15-37) U/L ALT 22 (12-78) U/L Alkaline Phosphatase 147 H (45-117) U/L Albumin 3.3 L (3.4-5.0) gm/dl Code Status & VTE Plan Code Status Patient is a full code as per my discussion with her. VTE Prophylaxis Plan VTE Prophylaxis will be ordered: Yes Supervising Physician Co-Signing Physician Notes Attending addendum Patient was seen and examined in emergency room She was brought into ER with ongoing hematuria and noted to have low hemoglobin on outpatient lab work She denies any symptoms except weakness and tiredness Denies any chest pain and/or palpitation On examination No apparent distress at bed Hemodynamically stable Chest-to auscultate bilaterally Heart-S1-S2 with a 2/6 systolic murmur over precordium Abdomen-benign, mildly tender hypogastrium Extremities-trace edema on the right and she has BKA on the left PHYSICIST CRYOGENICS-alert,awake and oriented x3 Admission labs and EKG reviewed Noted to have mildly elevated troponin without any chest pain History of CAD with aortic stenosis Doubt any ACS-we will cycle cardiac enzymes Has hematuria with low hemoglobin of 6.8 due to bladder mass(due to have surgery tomorrow at [facility]) Will give 2 units of blood transfusion Agree with assessment and plan as outlined above by Tabby Ramírez (1) Anemia Anemia type: unspecified type Qualified Code(s): D64.9 - Anemia, unspecified
[2020-09-19] MEDS ORDERED: NITROGLYCERIN SL 0.4 MG/TAB TAB SL PRN (20:05)
[2020-09-19] MEDS ORDERED: ACETAMINOPHEN 325 MG TAB PO PRN (20:05)
[2020-09-19] MEDS ORDERED: traMADol HCL 50 MG TABLET PO PRN (20:05)
[2020-09-19] MEDS ORDERED: INFLUENZA ADMINISTRATION CHARGE ONE (20:24)
[2020-09-19] MEDS ORDERED: INFLUENZA VIRUS QUAD VACCINE 0.5 ML SYR IM ONE (20:24)
[2020-09-19] MEDS: FUROSEMIDE 40 MG TAB PO SCH (21:07)
[2020-09-19] MEDS: GABAPENTIN 800 MG TAB PO SCH (21:08)
[2020-09-19] MEDS: FERROUS GLUCONATE 324 MG TAB PO SCH (21:09)
[2020-09-20 02:30] LABS: Hematocrit (blood only) 29.8 % (37-47); Hemoglobin 9.3 g/dL (12.0-16.0); Mean Corpuscular Hemoglobin 27.4 pg (25-34); Mean Corpuscular Hgb Conc 31.2 g/dL (32-36); Mean Corpuscular Volume 87.9 fL (80-100); Platelet Count 190 K/uL (130-400); RDW Coefficient of Variation 14.4 % (11.5-14.5); RDW Standard Deviation 46.3 fL (36.4-46.3); Red Blood Count 3.39 M/uL (4.2-5.4); White Blood Count 6.59 K/uL (4.8-10.8)
[2020-09-20 05:37] LABS: BUN Creatinine Ratio 34.4 (10-20); Calcium 8.8 mg/dl (8.5-10.1); Creatinine Clr Calc Pharmacy 40.2 ml/min; Est GFR (African American) 53.9; Est GFR (Non-African American) 46.5; Potassium 4.3 mmol/L (3.5-5.1)
[2020-09-20] MEDS: GABAPENTIN 800 MG TAB PO SCH ×2 (08:29→14:03)
[2020-09-20] MEDS: FUROSEMIDE 40 MG TAB PO SCH (08:30)
[2020-09-20] MEDS: FERROUS GLUCONATE 324 MG TAB PO SCH ×2 (08:31→14:03)
[2020-09-20] MEDS ORDERED: SPIRONOLACTONE 100 MG TAB PO SCH (09:00)
[2020-09-20] MEDS ORDERED: allopurinoL 300 MG TAB PO SCH (09:00)
[2020-09-20] MEDS ORDERED: CITALOPRAM 40 MG TAB PO SCH (09:00)
[2020-09-20] MEDS ORDERED: METOPROLOL SUCC 25MG EXT REL TAB PO SCH (09:00)
[2020-09-20] MEDS ORDERED: FOLIC ACID 1 MG TAB PO SCH (09:00)
[2020-09-20] MEDS ORDERED: ATORVASTATIN 40 MG TAB PO SCH (09:00)
[2020-09-20] MEDS ORDERED: MULTIVITAMIN TAB PO SCH (09:00)
[2020-09-20] MEDS ORDERED: PANTOprazole 40 MG TAB PO SCH (09:00)
[2020-09-20] MEDS ORDERED: ASPIRIN 81 MG ECTAB PO SCH (09:00)
--- NOTE | 2020-09-20 12:12 | Cardiology Consultation ---
Date of Consultation September 20, 2020 Assessment & Plan (1) Bladder mass: (2) Squamous cell carcinoma of vagina: (3) Encounter for pre-operative examination: (4) CKD (chronic kidney disease), stage III: (5) Rheumatoid arthritis: (6) COPD (chronic obstructive pulmonary disease): (7) PAD (peripheral artery disease): (8) Cirrhosis of liver: (9) Aortic stenosis: (10) Aortic valve regurgitation: (11) S/P vascular surgery: (12) Mitral regurgitation: (13) CAD (coronary artery disease): (14) Chronic combined systolic and diastolic CHF (congestive heart failure): (15) Charcot foot due to diabetes mellitus: (16) HTN (hypertension): (17) Diabetes mellitus type 2, diet-controlled: (18) Anemia due to blood loss: Mrs. Velasco presents with symptomatic anemia secondary to ongoing blood loss due to a bladder tumor. I believe there is an element of myocardial demand ischemia given her underlying severe valvular disease and significant anemia. Her echocardiogram has not significantly changed and I believe the most prudent course of action at this point would be to transfuse the patient preoperatively to optimize her hemodynamics and then transfer to [facility] for urologic evaluation and likely tumor extraction to stop the bleeding. She was counseled that once again I would place her as at least a moderate risk of any adverse perioperative cardiovascular event with her wrist being approximately 5%. She was further counseled that no further cardiac testing or intervention would further lower that risk. She states that she understands, she is accepting of this risk and agrees with transfer for tumor excision. Recommend transferring once patient has been accepted at [facility]. History of Present Illness Reason for Consultation: Chest pain in the setting of anemia Requesting Physician: Dr. Gutierrez Attending Physician: Melissa Gutierrez, DO History of Present Illness Mrs. Velasco is a very pleasant 69-year-old woman who is been following with myself as an outpatient for history of valvular heart disease. She presented to [facility] on 09/19/2020 at the recommendations of her PCP after she was found to be anemic with a hemoglobin of 7. She is currently scheduled to undergo bladder tumor resection at [facility] tomorrow. She has been suffering a great deal of bleeding due to the tumor and is very anxious to have the procedure done. Cardiac adhikari she states that she has been feeling well. She did have an episode of chest discomfort while lying in bed 2 nights ago which she described as a achy sensation that seem to move across her chest. She denied any associated shortness of breath, diaphoresis, nausea or palpitations. She has not had any similar episodes with activity. She has been taking her medications as directed without issue. PAST MEDICAL HISTORY: 1.Coronary artery disease status post PCI to unknown vessels. 2.Mild ischemic cardiomyopathy, EF 40-45%. 3.Peripheral arterial disease with left BKA and bilateral carotid endarterectomies. 4.Ongoing tobacco abuse. 5.Dyslipidemia. 6.Hypertension. 7.Likely COPD. 8.Cirrhosiswith recurrent ascites requiring paracentesis. 9. Moderate to severe aortic stenosis and mild aortic regurgitation 10.At least mild mitral stenosis with moderate to severe mitral regurgitation 11. Bladder carcinoma scheduled for resection Allergies Allergy/AdvReac Type Severity Reaction Status Date / Time Penicillins Allergy Intermediate hives/upset Verified 07/21/20 06:45 stomach/diarrhea Iodinated Contrast Media AdvReac Intermediate severe Verified 07/21/20 06:45 [Iodinated Contrast- Oral vomiting and IV Dye] oxycodone [From Percocet] AdvReac Intermediate vomiting Verified 07/21/20 06:45 Home Medications Home Medications Medication Instructions Recorded Confirmed Type gabapentin 800 mg tablet 800 mg PO TID tab 07/22/18 09/19/20 History omega 6-lnu-fpz-fish oil 1,000 mg 1 cap PO DAILY cap 07/22/18 09/19/20 History (120 mg-180 mg) capsule atorvastatin 80 mg PO DAILY 03/01/19 09/19/20 History ferrous gluconate 324 mg PO TID 03/01/19 09/19/20 History folic acid 1 mg PO DAILY 03/01/19 09/19/20 History metoprolol succinate 12.5 mg PO DAILY 03/01/19 09/19/20 History multivitamin 1 tab PO DAILY 03/01/19 09/19/20 History omeprazole 40 mg PO DAILY 03/01/19 09/19/20 History vitamin B complex 1 tab PO DAILY 03/01/19 09/19/20 History magnesium oxide 400 mg PO BID 04/05/19 09/19/20 History nitroglycerin 0.4 mg SUBLINGUAL UD PRN 04/05/19 09/19/20 History tramadol 50 mg PO BID PRN 07/15/19 09/19/20 History fluticasone propionate 1 spray INTRANASAL DAILY PRN 12/10/19 09/19/20 History allopurinol 300 mg PO DAILY 01/03/20 09/19/20 History methotrexate (PF) 30 mg/0.6 mL 15 mg SQ WEEKLY ml 03/03/20 09/19/20 History subcutaneous auto-injector furosemide [Lasix] 40 mg PO BID 07/21/20 09/19/20 History spironolactone [Aldactone] 100 mg PO QAM 07/21/20 09/19/20 History aspirin [Aspirin Low Dose] 81 mg PO DAILY 09/19/20 09/19/20 History citalopram 40 mg PO DAILY 09/19/20 09/19/20 History Patient History Medical History Acid reflux Aortic stenosis Aortic valve regurgitation Bladder mass CAD (coronary artery disease) 2004 -PCI to unknown vessel Charcot foot due to diabetes mellitus Chronic combined systolic and diastolic CHF (congestive heart failure) Cirrhosis of liver "UNDETERMINED ORIGIN" CKD (chronic kidney disease), stage III pt denies having any problems with kidneys. COPD (chronic obstructive pulmonary disease) Diabetes mellitus type 2, diet-controlled Diabetic peripheral neuropathy Gout History of alcohol abuse History of anxiety History of depression History of endometriosis "STAGE 1 GRADE 1" History of sleep apnea HX CPAP HTN (hypertension) Hypercholesteremia SARANYA (iron deficiency anemia) Impaired fasting glucose A1C 6/1% 05/2019 Ischemic cardiomyopathy EF 40-44% Mitral regurgitation PAD (peripheral artery disease) Rheumatoid arthritis Sleep apnea Snores Squamous cell carcinoma of vagina Valvular heart disease Surgical History History of anesthesia reaction PT REPORTS URINARY RETENTION POST OP, USUALLY REQUIRING STRAIGHT CATH History of bilateral carotid endarterectomy History of cardiac cath 2004 ..TOLD HAD 2 KY'S - STENT X1 History of cholecystectomy History of colonoscopy History of hysterectomy supracervical History of left below knee amputation History of lumbar discectomy S/P vascular surgery 11/02/2020-right common femoral endarterectomy, right femoral and posterior tibial bypass Family History Father Family history of diabetes mellitus Family history of COPD (chronic obstructive pulmonary disease) Sister Breast cancer Social History Smoking Status: Current every day smoker Years Smoked: 54; Cigarettes Per Day: 3; Second Hand Exposure: No; Do You Dip or Chew Tobacco: No; Tobacco Cessation Education Requested by Patient: No Hx Alcohol Use: No Hx Substance Use: No Preferred Language: Comoran Communication Ability: Effective Visual Impairment: Limited Hearing Ability: Normal Senior Lead Java Developer Required: Yes Beliefs That Will Affect Care: Jain Jain Beliefs: Jainism, [place] milagro marital status: Current Living Situation: Spouse current occupational status: disabled Feels Safe at Home: Yes Safety Concerns: Feels Safe At This Time Assistive Devices: Glasses and Prosthesis Assistive Devices Comment: partial lower denture, full upper denture Review of Systems Review of Systems: All systems reviewed & are unremarkable except as noted in HPI & below Physical Exam Physical Exam: General: Awake, alert and oriented x 3. No acute distress. HEENT: Normocephalic, atraumatic. Pupils equal, round and reactive to light and accommodation. Extraocular muscles are intact. Anicteric sclera. Moist mucous membranes. Neck: No JVD. No bruit. Cardiovascular: Regular. Positive S-4. Normal S-1 and S-2. No S-3. 3/6 mid to late systolic ejection murmur, greatest at the right sternal border, second intercostal space with radiation to the bilateral carotids. No rubs. Pulmonary: Clear to auscultation bilaterally. No rales, rhonchi, or wheezing. Abdomen: Bowel sounds x 4, soft. No rebound, guarding or tenderness. No organomegaly. Extremities: No clubbing, cyanosis or edema. BKA Skin: Warm and dry. Results & Data ([facility]) Vital Signs (Past 12 Hours) Vital Signs Temp Pulse Pulse Resp BP BP Pulse Ox 09/20/20 11:52 37.0 C 61 20 106/51 L 94 09/20/20 08:32 62 09/20/20 07:55 37.1 C 58 L 20 113/53 L 98 09/20/20 07:00 60 09/20/20 03:00 36.6 C 67 20 117/61 95 Laboratory Results Laboratory Results - last 24 hr 09/19/20 09/19/20 09/19/20 14:41 14:41 14:41 WBC 6.85 RBC 2.58 L Hgb 6.8 L* Hct 23.3 L MCV 90.3 MCH 26.4 MCHC 29.2 L RDW Std Deviation 49.0 H RDW Coeff of Tiburcio 14.9 H Plt Count 242 MPV 10.1 Immature Gran % (Auto) 0.1 Neut % (Auto) 84.4 Lymph % (Auto) 10.7 [place] % (Auto) 4.5 Eos % (Auto) 0.0 Baso % (Auto) 0.3 Neut # (Auto) 5.78 Lymph # (Auto) 0.73 L [place] # (Auto) 0.31 Eos # (Auto) 0.00 Baso # (Auto) 0.02 Immature Gran # (Auto) 0.01 Polychromasia 1+ PT 10.9 INR 1.0 APTT 22.1 PTT Ratio 0.8 Sodium Potassium Chloride Carbon Dioxide Anion Gap BUN Creatinine Est Cr Clr Drug Dosing Est GFR ( Amer) Est GFR (Non-Af Amer) BUN/Creatinine Ratio Glucose Calcium Total Bilirubin AST ALT Alkaline Phosphatase Troponin I Total Protein Albumin Globulin Albumin/Globulin Ratio POC Stool Occult Blood Blood Type A Positive Antibody Screen NEGATIVE Crossmatch See Detail 09/19/20 09/19/20 09/20/20 14:41 Unknown 02:06 WBC RBC Hgb Hct MCV MCH MCHC RDW Std Deviation RDW Coeff of Tiburcio Plt Count MPV Immature Gran % (Auto) Neut % (Auto) Lymph % (Auto) [place] % (Auto) Eos % (Auto) Baso % (Auto) Neut # (Auto) Lymph # (Auto) [place] # (Auto) Eos # (Auto) Baso # (Auto) Immature Gran # (Auto) Polychromasia PT INR APTT PTT Ratio Sodium 132 L Potassium 4.8 Chloride 98 Carbon Dioxide 29 Anion Gap 5.0 BUN 45 H Creatinine 1.41 H Est Cr Clr Drug Dosing 33.8 Est GFR ( Amer) 43.9 Est GFR (Non-Af Amer) 37.9 BUN/Creatinine Ratio 32.0 H Glucose 98 Calcium 8.9 Total Bilirubin 0.3 AST 16 ALT 22 Alkaline Phosphatase 147 H Troponin I 0.050 H* 0.049 H* Total Protein 7.2 Albumin 3.3 L Globulin 3.9 Albumin/Globulin Ratio 0.8 L POC Stool Occult Blood Negative Blood Type Antibody Screen Crossmatch 09/20/20 09/20/20 09/20/20 02:06 04:49 04:49 WBC 6.59 RBC 3.39 L Hgb 9.3 L Hct 29.8 L MCV 87.9 MCH 27.4 MCHC 31.2 L RDW Std Deviation 46.3 RDW Coeff of Tiburcio 14.4 Plt Count 190 MPV 10.0 Immature Gran % (Auto) Neut % (Auto) Lymph % (Auto) [place] % (Auto) Eos % (Auto) Baso % (Auto) Neut # (Auto) Lymph # (Auto) [place] # (Auto) Eos # (Auto) Baso # (Auto) Immature Gran # (Auto) Polychromasia PT INR APTT PTT Ratio Sodium 133 L Potassium 4.3 Chloride 98 Carbon Dioxide 30 Anion Gap 5.0 BUN 41 H Creatinine 1.19 Est Cr Clr Drug Dosing 40.2 Est GFR ( Amer) 53.9 Est GFR (Non-Af Amer) 46.5 BUN/Creatinine Ratio 34.4 H Glucose 95 Calcium 8.8 Total Bilirubin AST ALT Alkaline Phosphatase Troponin I 0.047 H* Total Protein Albumin Globulin Albumin/Globulin Ratio POC Stool Occult Blood Blood Type Antibody Screen Crossmatch
--- NOTE | 2020-09-20 14:21 | Electrocardiogram Report ---
Test Reason : Blood Pressure : / mmHG Vent. Rate : 065 BPM Atrial Rate : 065 BPM P-R Int : 220 ms QRS Dur : 122 ms QT Int : 474 ms P-R-T Axes : 077 -62 085 degrees QTc Int : 492 ms Sinus rhythm with 1st degree A-V block with occasional Premature ventricular complexes Left anterior fascicular block Poor R wave progression, consider anterior MT vs. lead placement vs. LVH Abnormal ECG Confirmed by Daniel Ibarra ([id number] on 09/20/2020 2:20:39 PM Referred By: Chadd Dudley Confirmed By:Xander Ibarra
--- NOTE | 2020-09-20 14:24 | Discharge Summary ---
Date of Service September 20, 2020 Admission HPI Per Admitting Provider 69-year-old medically complex female with PMH Charcot foot, DM type II, alpha 1 antitrypsin deficiency, COPD, PAD, CAD, ischemic cardiomyopathy, diastolic CHF, aortic stenosis, CKD stage III, rheumatoid arthritis, and recently diagnosed vaginal squamous cell carcinoma and bladder mass who presents to the ED by referral PCP for evaluation of anemia. Patient was scheduled for surgery tomorrow at [facility] for a bladder mass resection. Patient was at PCPs office for preoperative evaluation and labs were obtained showing Hgb 7.0. Patient reports she has been feeling fatigued recently. She also has been having hematuria since May which prompted the work-up finding the vaginal squamous cell carcinoma and bladder mass. Patient reports she had an episode of chest pain last evening while lying in bed. Reports the pain was midsternal in nature and sharp. She took 1 sublingual nitroglycerin with resolution of the pain. Patient reports she did not tell her PCP this today during her preop eval because she was scared that she would not get cleared for surgery. Patient reports she has been feeling lightheaded and dizzy however no syncopal events. No shortness of breath. Denies abdominal pain, nausea, vomiting, diarrhea. No bright red bleeding per rectum or dark tarry stools. Denies any other recent illnesses, fevers, chills. In the ED, Hgb 6.8. Patient is hemodynamically stable. Troponin mildly elevated 0.05. EKG does not show any acute ST changes. Patient was typed and crossed and is currently receiving PRBC transfusion. Admission Exam Per Admitting Provider Constitutional: WD/WN, vitals as above Eyes: PERRL, conjunctivae normal, anicteric sclerae ENMT: external ear and nose normal, oropharynx normal Respiratory: normal respiratory effort; no respiratory distress Auscultation: + diminished lung sounds (Bilaterally) Cardiovascular: Rate/Rhythm: regular rate and regular rhythm Heart Sounds: + murmur (Systolic, grade 3/6) Vessels: normal peripheral pulses Extremities: no edema Gastrointestinal (Abdomen): normal bowel sounds, soft, nontender, no hepatosplenomegaly Musculoskeletal: no cyanosis or clubbing, extremities motor strength 5/5 Extremities: + amputation noted (Left BKA) Skin: no rashes, warm and dry Neurologic: PERRL, EOMI, accommodation nl, no face palsy, no dysarthria Psychiatric: A+Ox3, euthyic affect Principal Diagnosis Anemia 2/2 acute blood loss Bladder mass chronic gross hematuria demand ischemia Discharge Exam CONSTITUTIONAL: WNWD, vitals as above, generally well-appearing EYES: normal conjunctivae, no scleral icterus ENT: external ear and nose normal, MMM RESPIRATORY: clear to auscultation bilaterally, no crackles, rales or wheezes, normal respiratory effort CARDIOVASCULAR: regular rate and rhythm, S1 and 2 heard without murmurs, gallops or rubs, no JVD, no peripheral edema GASTROINTESTINAL: soft, nontender, nondistended MUSCULOSKELETAL: strength 5/5 throughout, head is normocephalic and atraumatic, can sit up independently. L BKA noted. SKIN: warm and dry NEUROLOGIC: No facial palsy, no dysarthria. CN 2-12 grossly intact, no sensory deficit, normal cognition, normal speech, no tremor PSYCHIATRIC: alert cooperative and oriented to person, place and time. Euthymic mood, makes good eye contact, language grossly intact, recent and remote memory grossly intact. LYMPHATIC: no LAD Discharge Data Allergies Allergy/AdvReac Type Severity Reaction Status Date / Time Penicillins Allergy Intermediate hives/upset Verified 07/21/20 06:45 stomach/diarrhea Iodinated Contrast Media AdvReac Intermediate severe Verified 07/21/20 06:45 [Iodinated Contrast- Oral vomiting and IV Dye] oxycodone [From Percocet] AdvReac Intermediate vomiting Verified 07/21/20 06:45 Consultations 09/19/20 17:29 ED Decision to Admit Stat 09/19/20 20:05 Consult Cardiology Routine Hospital Course (1) Anemia due to blood loss: (2) Squamous cell carcinoma of vagina: (3) Bladder mass: (4) Demand ischemia: Patient is a 69-year-old female who presented to the ER after some routine blood work performed in preparation for surgery revealed anemia. She is said to have a bladder mass resection at [facility] on 09/20. The patient states that she was diagnosed with bladder cancer. She notes the blood work revealed her hemoglobin to be 7. She denied any symptoms of chest pain or shortness of breath initially and denied any nausea or vomiting. She denied any lightheadedness or dizziness and denied any blood in her stools. She does report having seen blood clots in her urine because of her tumor which has been going on for months. On arrival to the ER she was hemodynamically stable and afebrile. H&H level was 6.8/23.3 and she was transfused 2 units of blood. She was admitted to the hospitalist service overnight and a posttransfusion H&H was 9.3/29.8. Work-up included a very mildly elevated troponin of 0.05 that was trended and remained right around this level. There was also an EKG performed without acute ST changes. Some demand ischemia was suspected secondary to anemia and on further questioning the patient did report an episode of chest pain that was resolved with nitroglycerin at home. Cardiology was consulted given upcoming surgery and agreed with the suggestion of myocardial demand ischemia given her underlying severe valvular disease and significant anemia. H er echocardiogram was performed and did not significantly change from prior despite severe valvular disease and a slightly lower EF of 40 to 45%. Per his recommendation the patient should continue with surgery for tumor extraction to stop the bleeding. She was counseled that she was at least a moderate risk of any adverse perioperative cardiac event with her risk being approximately 5%. She was Further counseled that no further cardiac testing or intervention would further lower that risk and she verbalized understanding with intent to proceed to surgery. I did contact her urologic surgeon, Dr. Mehta at [facility] on 09/20. We discussed that Dr. Mehta will be contacting her to reschedule her surgery as outpatient and that the patient will be discharged to home today. At time of discharge she was hemodynamically stable and afebrile and was feeling better than on arrival. Physical exam was unremarkable outside of a chronic left BKA. She was mentating and ambulating at baseline and oxygenating well on room air. She was sent home in guarded condition pending the removal of her bladder mass. Total Time Total Time Spent Total Time Spent (In Minutes): 60 Total Time Includes: Examination of the Patient, Discharge Planning, Medication Reconciliation and Communication With Other Providers Discharge Plan Discharge Items Patient Disposition: Home - Self-Care Reason For Visit: ANEMIA Discharge Diagnosis: Anemia 2/2 acute blood loss Bladder mass chronic gross hematuria demand ischemia Activity: Resume your previous activity Non-emergency contact: Primary Care Provider Call non-emergency contact if: you have any medication questions, your symptoms worsen and your pain is not controlled Follow-up/Referrals: Chadd Dudley MD [Primary Care Provider] - Diet: Low Sodium (2gm) Addtl Attending Provider Instructions: Please take all medications as instructed on discharge list below. [place] [facility] [place] to reschedule the surgery again soon. It is recommended that you follow-up with your primary care provider within one week of discharge to ensure you are still doing well, with consideration given to repeating your CBC (complete blood count). It was a pleasure taking care of you! Please call if you have any questions or problems. You can reach a [facility] hospitalist on duty at [facility] 24 hours a day by calling [phone]. Take care of yourself. Melissa Gutierrez DO [facility] Pending Studies at Discharge: No Stand-Alone Forms: My [facility] Medications and DC Order Prescriptions: Continued methotrexate (PF) 30 mg/0.6 mL auto-injector 15 mg SQ WEEKLY RF: 0 gabapentin 800 mg tablet 800 mg PO TID RF: 0 omega [id number] oil [Fish Oil] 1,000 mg (120 mg-180 mg) capsule 1 cap PO DAILY RF: 0 magnesium oxide 400 mg magnesium Tablet 400 mg PO BID RF: 0 nitroglycerin 0.4 mg tablet, sublingual 0.4 mg sublingual UD PRN (Reason: Chest Pain) RF: 0 fluticasone propionate 50 mcg/actuation spray,suspension 1 spray INTRANASAL DAILY PRN (Reason: Allergy Symptoms) RF: 0 allopurinol 300 mg Tablet 300 mg PO DAILY RF: 0 atorvastatin 80 mg Tablet 80 mg PO DAILY RF: 0 omeprazole 40 mg Capsule,Delayed Release(Dr/Ec) 40 mg PO DAILY RF: 0 metoprolol succinate 25 mg Tablet Extended Release 24 Hr 12.5 mg PO DAILY RF: 0 ferrous gluconate 324 mg (38 mg iron) Tablet 324 mg PO TID RF: 0 multivitamin Tablet 1 tab PO DAILY RF: 0 vitamin B complex Tablet 1 tab PO DAILY RF: 0 folic acid 1 mg Tablet 1 mg PO DAILY RF: 0 tramadol 50 mg Tablet 50 mg PO BID PRN (Reason: pain) RF: 0 furosemide [Lasix] 40 mg Tablet 40 mg PO BID RF: 0 spironolactone [Aldactone] 100 mg Tablet 100 mg PO QAM RF: 0 citalopram 40 mg tablet 40 mg PO DAILY RF: 0 aspirin [Aspirin Low Dose] 81 mg Tablet,Delayed Release (Dr/Ec) 81 mg PO DAILY RF: 0 Discharge Orders: Discharge Order (Routine); Ordered 09/20/20 Ordered By: Melissa Gutierrez Admission Data Admit Date/Time: 09/19/20 18:06 Attending Provider: Melissa Gutierrez Admit Provider: Patti Ramírez Primary Care Provider: Chadd Dudley Other Providers: Patti Ramírez ; Jonathon Walters Other Interventions: Discharge Summary Assessment (RN) Last Done: 09/20/20 14:26
== END 2020-09-20 16:42 | disposition home or self-care (01) | DRG 812 ==
LOC: ED 14:08 → SUATTDRO 18:06 → 2W 18:06

== ENCOUNTER 2020-10-19 12:10 | Inpatient (IN) ==
--- NOTE | 2020-10-19 12:18 | Emergency Department Note ---
Impression & Plan COPD exacerbation, Anemia, Fever, Acute UTI, Acute dehydration ED Provider Note NAME: MEREDITH MARTINEZ AGE: 69 SEX: F : 1950 ARRIVES VIA: Ambulance INFORMANT: Patient, ED PROVIDER(S): Juan Ruiz MD Chief Complaint: Feeling unwell HPI: Patient states that she has been feeling unwell for approximately last 2 days. The patient has had 5 - Covid test with most recent last . Patient states that she was seen in the outpatient setting and was very weak. The patient states she has had a productive cough with yellow sputum. The patient has complained of increasing shortness of breath. The patient does smoke. The patient does have a known history of COPD but does not wear chronic oxygen. The patient has felt feverish but the T-max at home was 99.1. The patient has had some nausea and abdominal pain primarily in the upper abdomen nonradiating. The patient denies any bowel or urinary difficulties at this time. ROS: See HPI for pertinent positives and negatives. A total of 10 systems were reviewed and otherwise negative. Past medical history: See below Surgical history: See below Social history: See below Physical Exam: GENERAL: Mildly ill in appearance, wearing a mask, nasal cannula in place. EYE EXAM: Normal conjunctiva. PERRL, no anisocoria and EOM's grossly intact w/o pain. NECK: Supple, no nuchal rigidity, no adenopathy, non-tender. No signs of meningismus. LUNGS: Scant wheezes, bibasilar crackles noted. Normal chest wall mechanics. HEART: NSR, no MRG. ABDOMEN: Abdomen soft, upper and right-sided abdominal pain without peritonitis, normo-active bowel sounds, no masses, no rebound or guarding. BACK: No CVA TTP. SKIN: No rashes and no bruising. UPPER EXTREMITIES: Upper extremities are grossly normal. LOWER EXTREMITIES: Left lower extremity BKA with intact stump well-healed, no right lower extremity edema. NEURO EXAM: A&O x3, cranial nerves II-XII grossly intact, normal speech, moves all 4 extremities on command w/o issue. Differential diagnoses: Sepsis, UTI, pneumonia, metabolic, electrolyte abnormalities, cardiac sources, intracerebral event, toxicologic, neurologic, as well as other pathologies. Course: Patient was seen and evaluated the bedside. Full history physical exam was performed. EKG: Indication: Shortness of breath Sinus with first-degree AV block, rate of 78 with prolonged AR and wide QRS, left bundle branch block pattern, no obvious carbose criteria. PVCs noted. Imaging Studies: Radiology results as stated below per my review in the radiologist's interpretation: XR chest 1V portable HISTORY: 69 years-old Female SEPSIS acute sepsis COMPARISON: Chest radiograph 12/10/2019 TECHNIQUE: Portable AP view of the chest FINDINGS: Cardiac silhouette is enlarged, unchanged. Calcified plaque of the thoracic aorta. There is no pneumothorax, pleural effusion, airspace consolidation or overt pulmonary edema. Degenerative changes of the shoulders and spine. Surgical clips project over the neck. IMPRESSION: Cardiomegaly without acute process. ACT 112: Negative or not required by law. The above report was generated using voice recognition software. It may contain grammatical, syntax or spelling errors. Electronically signed by: Trever Salgado M.D. 10/19/2020 1:57 PM Dictated: 10/19/20 1356 Transcribed: 10/19/[address] SCAN OF THE ABDOMEN AND PELVIS WITHOUT IV CONTRAST CLINICAL HISTORY: Generalized abdominal pain. Nausea and headache. COMPARISON STUDY: Abdominal CT dated 04/05/2019. TECHNIQUE: CT scan of the abdomen and pelvis is performed from the lung bases to the proximal femora. Images are reviewed in the axial, sagittal, and coronal planes. IV contrast was not administered for this examination. A dose lowering technique was utilized adhering to the principles of ALARA. CT DOSE: 859.93 mGycm FINDINGS: Lung bases: The heart is enlarged and without pericardial effusion. The coronary arteries and mitral annulus are densely calcified. There is a small hiatal hernia. Diminished attenuation of the cardiac blood pool as compared to the myocardium suggests anemia. There is trace right pleural effusion and bibasilar atelectasis. No airspace consolidation is seen typical for pneumonia. Liver: The unenhanced liver is normal in size and heterogeneous in attenuation. Nodularity of the hepatic surface contour suggests early change of cirrhosis. There is no intrahepatic biliary ductal dilatation. Gallbladder: Surgically absent noting clips in the gallbladder fossa. Spleen: The spleen is top normal in size measuring 13 cm in length. Pancreas: The unenhanced pancreas is moderately atrophic and grossly unremarkable. Adrenal glands: Unremarkable. Kidneys: The unenhanced kidneys demonstrate mild cortical atrophy and are without hydronephrosis. A right ureteral stent is in appropriate position. No calcifications are seen along the course of the stent. There are 2 punctate nonobstructing right renal calculi. A 2 mm nonobstructing calculus is seen in the left kidney. Bilateral renal cysts measure up to 4.8 cm. Abdominal vasculature: There is advanced atherosclerotic calcification and mild ectasia of the abdominal aorta. A stent is partially visualized in the right fem oral artery. Bowel: There is mild colonic diverticulosis without CT evidence of acute diverticulitis. No bowel obstruction is seen. The appendix is well-visualized and normal. Peritoneum: No intraperitoneal free air is seen. There is trace abdominopelvic ascites. Postoperative change is seen in the retroperitoneum. Lymphadenopathy: None. Pelvic viscera: The bladder is decompressed around a Monroe catheter and not well evaluated. The uterus is surgically absent. No adnexal lesion is seen. Pos toperative change is noted in the right groin. Skeletal structures: The skeletal structures are osteopenic. There is moderate to advanced lumbosacral spondylosis and mild scoliosis. A 2.2 cm peripherally calcified structures identified within the inferior aspect of the central spinal canal at the level of S3. This is unchanged from previous. No lytic or blastic lesions are seen. Calcific tendinopathy is seen at the origin of the hamstrings tendons. IMPRESSION: 1. Cardiomegaly and trace right pleural effusion. 2. There is trace abdominopelvic ascites. 3. Cirrhotic liver morphology. 4. A right ureteral stent is in appropriate position. No calcifications are seen along the course of the stent. 5. Tiny nonobstructing renal calculi are seen bilaterally. 6. Additional findings as above. ACT 112: Negative or not required by law. Electronically signed by: Jono Berg M.D. 10/19/2020 3:18 PM Dictated: 10/19/20 1507 Transcribed: 10/19/20 1507 Cardiac monitoring: An order was placed for continuous cardiac monitoring. The monitor shows a rate of 78 with sinus rhythm. MDM: Patient did present with concern for increasing weakness shortness of breath and history of COPD. Blood work was obtained along with an EKG troponin chest x-ray blood and urine cultures, IV fluids and some medics and antipyretics were also ordered along with a CT of the abdomen pelvis. Blood work does show white count of 14 with a hemoglobin of 8. Last hemoglobin last month was 9. Platelet count is unremarkable. The patient did have kidney function with mild KADEN. The patient did receive IV fluids. Troponin is +0.07 but the patient has had a positive troponin in the past. Pro-Brandon is elevated. The patient did already receive cefepime. The patient may have a UTI granted her noncontrast scan not indicative of pyelonephritis. The patient did not have any back pain. Covid and flu negative. I did speak the on-call hospitalist Jazzmine Schmitz PA-C and the patient was to be admitted under Dr. Wiley of [facility]. Past Med/Surg History Medical History Acid reflux Aortic stenosis Aortic valve regurgitation Bladder mass CAD (coronary artery disease) 2004 -PCI to unknown vessel Charcot foot due to diabetes mellitus Chronic combined systolic and diastolic CHF (congestive heart failure) Cirrhosis of liver "UNDETERMINED ORIGIN" CKD (chronic kidney disease), stage III pt denies having any problems with kidneys. COPD (chronic obstructive pulmonary disease) Diabetes mellitus type 2, diet-controlled Diabetic peripheral neuropathy Gout History of alcohol abuse History of anxiety History of depression History of endometriosis "STAGE 1 GRADE 1" History of sleep apnea HX CPAP HTN (hypertension) Hypercholesteremia SARANYA (iron deficiency anemia) Impaired fasting glucose A1C 6/1% 05/2019 Ischemic cardiomyopathy EF 40-44% Mitral regurgitation PAD (peripheral artery disease) Rheumatoid arthritis Sleep apnea Snores Squamous cell carcinoma of vagina Valvular heart disease Surgical History History of anesthesia reaction PT REPORTS URINARY RETENTION POST OP, USUALLY REQUIRING STRAIGHT CATH History of bilateral carotid endarterectomy History of cardiac cath 2004 ..TOLD HAD 2 NC'S - STENT X1 History of cholecystectomy History of colonoscopy History of hysterectomy supracervical History of left below knee amputation History of lumbar discectomy S/P vascular surgery 11/02/2020-right common femoral endarterectomy, right femoral and posterior tibial bypass Family History Father Family history of diabetes mellitus Family history of COPD (chronic obstructive pulmonary disease) Sister Breast cancer Social History Smoking Status: Current every day smoker Tobacco Type: Cigarettes Years Smoked: 54; Cigarettes Per Day: 3; Second Hand Exposure: No; Hx Alcohol Use: No Hx Substance Use: No Preferred Language: Romanian Communication Ability: Effective Visual Impairment: Limited Hearing Ability: Normal Office Mail Clerk Required: Yes Beliefs That Will Affect Care: Judaism Judaism Beliefs: Pentecostalism, [place] milagro marital status: Current Living Situation: Spouse current occupational status: disabled Feels Safe at Home: Yes Assistive Devices: Glasses and Prosthesis Allergies Allergies Allergy/AdvReac Type Severity Reaction Status Date / Time Penicillins Allergy Intermediate hives/upset Verified 10/19/20 15:39 stomach/diarrhea Iodinated Contrast Media AdvReac Intermediate severe Verified 10/19/20 15:39 [Iodinated Contrast- Oral vomiting and IV Dye] oxycodone [From Percocet] AdvReac Intermediate vomiting Verified 10/19/20 15:39 Home Meds Home Medications Medication Instructions Recorded Confirmed gabapentin 800 mg tablet 800 mg PO TID tab 07/22/18 10/19/20 omega [id number] oil 1,000 mg 1 cap PO DAILY cap 07/22/18 10/19/20 (120 mg-180 mg) capsule atorvastatin 80 mg PO HS 03/01/19 10/19/20 ferrous gluconate 324 mg PO TID 03/01/19 10/19/20 folic acid 1 mg PO DAILY 03/01/19 10/19/20 metoprolol succinate 12.5 mg PO DAILY 03/01/19 10/19/20 multivitamin 1 tab PO DAILY 03/01/19 10/19/20 omeprazole 40 mg PO DAILY 03/01/19 10/19/20 nitroglycerin 0.4 mg SUBLINGUAL DIRECTED PRN 04/05/19 10/19/20 tramadol 50 mg PO BID PRN 07/15/19 10/19/20 allopurinol 300 mg PO DAILY 01/03/20 10/19/20 methotrexate (PF) 30 mg/0.6 mL 15 mg SQ WEEKLY ml 03/03/20 10/19/20 subcutaneous auto-injector furosemide [Lasix] 40 mg PO BID 07/21/20 10/19/20 spironolactone [Aldactone] 100 mg PO QAM 07/21/20 10/19/20 aspirin [Aspirin Low Dose] 81 mg PO DAILY 09/19/20 10/19/20 citalopram 40 mg PO HS 09/19/20 10/19/20 docusate sodium 100 mg PO BID PRN 10/19/20 10/19/20 tamsulosin 0.4 mg PO HS 10/19/20 10/19/20 Results & Data (ED) Vital Signs Vital Signs - 24 hr 10/19/20 12:13 10/19/20 12:18 10/19/20 12:21 Temperature 38.3 C H Temperature Source Oral Pulse Rate 80 87 82 Pulse Rate from SpO2 Sensor 78 80 Respiratory Rate 20 18 17 Respiratory Effort / Characteristics Non-Labored Respiratory Depth Normal Blood Pressure 109/55 L 109/55 L Blood Pressure Mean 73 70 Pulse Oximetry 94 91 99 Oxygen Delivery Method Room Air Room Air Nasal Cannula Oxygen Flow Rate 2 Sepsis Recent Fever Within 48 Hours Yes Sepsis New/Unexplained Change in Mental Status N/A Sepsis Action Taken by Nursing No Action Required Oxygen Flow Rate - Titration Pulse Oximetry Post Tiitration 10/19/20 12:22 10/19/20 12:30 10/19/20 12:31 Temperature Temperature Source Pulse Rate 78 77 77 Pulse Rate from SpO2 Sensor 77 78 Respiratory Rate 16 15 19 Respiratory Effort / Characteristics Respiratory Depth Blood Pressure 106/61 Blood Pressure Mean 81 Pulse Oximetry 99 99 97 Oxygen Delivery Method Nasal Cannula Oxygen Flow Rate 2 2 2 Sepsis Recent Fever Within 48 Hours Sepsis New/Unexplained Change in Mental Status Sepsis Action Taken by Nursing Oxygen Flow Rate - Titration Pulse Oximetry Post Tiitration 10/19/20 12:45 10/19/20 13:00 10/19/20 13:09 Temperature Temperature Source Pulse Rate 78 83 Pulse Rate from SpO2 Sensor Respiratory Rate 18 19 Respiratory Effort / Characteristics Respiratory Depth Blood Pressure 106/55 L Blood Pressure Mean 67 Pulse Oximetry 83 L 99 83 L Oxygen Delivery Method Room Air Nasal Cannula Room Air Oxygen Flow Rate 2 Sepsis Recent Fever Within 48 Hours Sepsis New/Unexplained Change in Mental Status Sepsis Action Taken by Nursing Oxygen Flow Rate - Titration 2 Pulse Oximetry Post Tiitration 91 10/19/20 13:15 10/19/20 13:27 10/19/20 13:30 Temperature Temperature Source Pulse Rate 79 77 74 Pulse Rate from SpO2 Sensor 78 76 79 Respiratory Rate 18 19 19 Respiratory Effort / Characteristics Respiratory Depth Blood Pressure 110/65 110/65 118/61 Blood Pressure Mean 80 82 77 Pulse Oximetry 99 100 100 Oxygen Delivery Method Oxygen Flow Rate 2 2 2 Sepsis Recent Fever Within 48 Hours Sepsis New/Unexplained Change in Mental Status Sepsis Action Taken by Nursing Oxygen Flow Rate - Titration Pulse Oximetry Post Tiitration 10/19/20 13:35 10/19/20 13:45 10/19/20 14:00 Temperature Temperature Source Pulse Rate 77 77 Pulse Rate from SpO2 Sensor 76 77 Respiratory Rate 21 17 Respiratory Effort / Characteristics Respiratory Depth Blood Pressure 104/60 111/49 L Blood Pressure Mean 82 66 Pulse Oximetry 99 100 100 Oxygen Delivery Method Nasal Cannula Oxygen Flow Rate 2 2 Sepsis Recent Fever Within 48 Hours Sepsis New/Unexplained Change in Mental Status Sepsis Action Taken by Nursing Oxygen Flow Rate - Titration Pulse Oximetry Post Tiitration 10/19/20 14:15 10/19/20 14:30 10/19/20 14:32 Temperature 37.7 C H Temperature Source Oral Pulse Rate 78 74 Pulse Rate from SpO2 Sensor 76 75 Respiratory Rate 14 16 Respiratory Effort / Characteristics Respiratory Depth Blood Pressure 97/46 L 97/49 L Blood Pressure Mean 71 66 Pulse Oximetry 100 99 Oxygen Delivery Method Nasal Cannula Oxygen Flow Rate 2 Sepsis Recent Fever Within 48 Hours Sepsis New/Unexplained Change in Mental Status Sepsis Action Taken by Nursing Oxygen Flow Rate - Titration Pulse Oximetry Post Tiitration 10/19/20 14:45 10/19/20 15:08 10/19/20 15:15 Temperature Temperature Source Pulse Rate 74 73 72 Pulse Rate from SpO2 Sensor 75 73 72 Respiratory Rate 15 15 15 Respiratory Effort / Characteristics Respiratory Depth Blood Pressure 96/49 L 90/47 L Blood Pressure Mean 67 60 Pulse Oximetry 99 98 99 Oxygen Delivery Method Nasal Cannula Oxygen Flow Rate 2 Sepsis Recent Fever Within 48 Hours Sepsis New/Unexplained Change in Mental Status Sepsis Action Taken by Nursing Oxygen Flow Rate - Titration Pulse Oximetry Post Tiitration 10/19/20 15:16 10/19/20 15:30 10/19/20 15:31 Temperature Temperature Source Pulse Rate 73 73 74 Pulse Rate from SpO2 Sensor 73 73 72 Respiratory Rate 15 16 15 Respiratory Effort / Characteristics Respiratory Depth Blood Pressure 93/51 L Blood Pressure Mean 68 Pulse Oximetry 99 99 98 Oxygen Delivery Method Oxygen Flow Rate Sepsis Recent Fever Within 48 Hours Sepsis New/Unexplained Change in Mental Status Sepsis Action Taken by Nursing Oxygen Flow Rate - Titration Pulse Oximetry Post Tiitration 10/19/20 15:45 10/19/20 16:00 10/19/20 16:01 Temperature Temperature Source Pulse Rate 73 72 74 Pulse Rate from SpO2 Sensor 73 72 75 Respiratory Rate 16 15 15 Respiratory Effort / Characteristics Respiratory Depth Blood Pressure 94/55 L 96/49 L Blood Pressure Mean 71 70 Pulse Oximetry 98 98 99 Oxygen Delivery Method Oxygen Flow Rate Sepsis Recent Fever Within 48 Hours Sepsis New/Unexplained Change in Mental Status Sepsis Action Taken by Nursing Oxygen Flow Rate - Titration Pulse Oximetry Post Tiitration Home Medications Current Medication List: was personally reviewed by me Laboratory Data Attestation: I reviewed the patient's lab results. Result diagrams: 10/19/20 13:12 10/19/20 13:12 Lab Results 10/19/20 10/19/20 10/19/20 Range/Units 12:52 12:52 12:52 WBC (4.8-10.8) K/uL RBC (4.2-5.4) M/uL Hgb (12.0-16.0) g/dL Hct (37-47) % MCV (80-100) fL MCH (25-34) pg MCHC (32-36) g/dL RDW Std Deviation (36.4-46.3) fL RDW Coeff of Tiburcio (11.5-14.5) % Plt Count (130-400) K/uL MPV (7.4-10.4) fL Immature Gran % (Auto) % Neut % (Auto) % Lymph % (Auto) % Holt % (Auto) % Eos % (Auto) % Baso % (Auto) % Neut # (Auto) (1.4-6.5) K/uL Lymph # (Auto) (1.2-3.4) K/uL Holt # (Auto) (0.11-0.59) K/uL Eos # (Auto) (0-0.5) K/uL Baso # (Auto) (0-0.2) K/uL Immature Gran # (Auto) (0.00-0.02) K/uL Polychromasia Anisocytosis PT (9.0-12.0) Seconds INR (0.9-1.1) APTT (21.0-31.0) Seconds PTT Ratio VBG pH (7.36-7.41) VBG pCO2 (38-50) mmHg VBG pO2 mmHg VBG HCO3 mmol/L VBG O2 Saturation % VBG Base Excess mEq/L Barometric Pressure mm/Hg Sodium (136-145) mmol/L Potassium (3.5-5.1) mmol/L Chloride (98-107) mmol/L Carbon Dioxide (21-32) mmol/L Anion Gap (3-11) BUN (7-18) mg/dl Creatinine (0.6-1.2) mg/dl Est Cr Clr Drug Dosing ml/min Est GFR ( Amer) Est GFR (Non-Af Amer) BUN/Creatinine Ratio (10-20) Glucose (70-99) mg/dl Lactate (0.4-2.0) mmol/L Calcium (8.5-10.1) mg/dl Magnesium (1.8-2.4) mg/dl Total Bilirubin (0.2-1) mg/dl AST (15-37) U/L ALT (12-78) U/L Alkaline Phosphatase (45-117) U/L Ammonia (11-32) umol/L Troponin I (0-0.045) ng/ml Total Protein (6.4-8.2) gm/dl Albumin (3.4-5.0) gm/dl Globulin (2.5-4.0) gm/dl Albumin/Globulin Ratio (0.9-2) Procalcitonin (0-0.5) ng/ml Urine Color Urine Appearance (Clear) Urine pH (4.5-7.5) Ur Specific [place] (1.000-1.030) Urine Protein (Negative) Urine Glucose (UA) (Negative) Urine Ketones (Negative) Urine Blood (Negative) Urine Nitrite (Negative) Urine Bilirubin (Negative) Urine Urobilinogen (Negative) Ur Leukocyte Esterase (Negative) Urine RBC (0-4) /hpf Urine WBC (0-5) /hpf Ur Epithelial Cells (0-5) /lpf Urine Bacteria (Negative) Nasal Screen MRSA (PCR) Negative (Negative) COVID[facility]19 [facility] Influ A Molecular Assay Negative (Negative) Influ B Molecular Assay Negative (Negative) SARS-CoV-2, RNA, NAAT (NEGATIVE) 10/19/20 10/19/20 10/19/20 Range/Units 12:52 13:12 13:12 WBC 14.19 H (4.8-10.8) K/uL RBC 3.27 L (4.2-5.4) M/uL Hgb 8.3 L (12.0-16.0) g/dL Hct 28.6 L (37-47) % MCV 87.5 (80-100) fL MCH 25.4 (25-34) pg MCHC 29.0 L (32-36) g/dL RDW Std Deviation 72.2 H (36.4-46.3) fL RDW Coeff of Tiburcio 23.5 H (11.5-14.5) % Plt Count 198 (130-400) K/uL MPV 9.5 (7.4-10.4) fL Immature Gran % (Auto) 0.1 % Neut % (Auto) 93.1 % Lymph % (Auto) 2.0 % Holt % (Auto) 4.7 % Eos % (Auto) 0.0 % Baso % (Auto) 0.1 % Neut # (Auto) 13.20 H (1.4-6.5) K/uL Lymph # (Auto) 0.29 L (1.2-3.4) K/uL Holt # (Auto) 0.67 H (0.11-0.59) K/uL Eos # (Auto) 0.00 (0-0.5) K/uL Baso # (Auto) 0.01 (0-0.2) K/uL Immature Gran # (Auto) 0.02 (0.00-0.02) K/uL Polychromasia 2+ Anisocytosis Present PT 12.8 H (9.0-12.0) Seconds INR 1.2 H (0.9-1.1) APTT 29.3 (21.0-31.0) Seconds PTT Ratio 1.1 VBG pH (7.36-7.41) VBG pCO2 (38-50) mmHg VBG pO2 mmHg VBG HCO3 mmol/L VBG O2 Saturation % VBG Base Excess mEq/L Barometric Pressure mm/Hg Sodium (136-145) mmol/L Potassium (3.5-5.1) mmol/L Chloride (98-107) mmol/L Carbon Dioxide (21-32) mmol/L Anion Gap (3-11) BUN (7-18) mg/dl Creatinine (0.6-1.2) mg/dl Est Cr Clr Drug Dosing ml/min Est GFR ( Amer) Est GFR (Non-Af Amer) BUN/Creatinine Ratio (10-20) Glucose (70-99) mg/dl Lactate (0.4-2.0) mmol/L Calcium (8.5-10.1) mg/dl Magnesium (1.8-2.4) mg/dl Total Bilirubin (0.2-1) mg/dl AST (15-37) U/L ALT (12-78) U/L Alkaline Phosphatase (45-117) U/L Ammonia (11-32) umol/L Troponin I (0-0.045) ng/ml Total Protein (6.4-8.2) gm/dl Albumin (3.4-5.0) gm/dl Globulin (2.5-4.0) gm/dl Albumin/Globulin Ratio (0.9-2) Procalcitonin (0-0.5) ng/ml Urine Color Urine Appearance (Clear) Urine pH (4.5-7.5) Ur Specific [place] (1.000-1.030) Urine Protein (Negative) Urine Glucose (UA) (Negative) Urine Ketones (Negative) Urine Blood (Negative) Urine Nitrite (Negative) Urine Bilirubin (Negative) Urine Urobilinogen (Negative) Ur Leukocyte Esterase (Negative) Urine RBC (0-4) /hpf Urine WBC (0-5) /hpf Ur Epithelial Cells (0-5) /lpf Urine Bacteria (Negative) Nasal Screen MRSA (PCR) (Negative) COVID-19 Eval Order Influ A Molecular Assay (Negative) Influ B Molecular Assay (Negative) SARS-CoV-2, RNA, NAAT NEGATIVE (NEGATIVE) 10/19/20 10/19/20 10/19/20 Range/Units 13:12 13:12 13:27 WBC (4.8-10.8) K/uL RBC (4.2-5.4) M/uL Hgb (12.0-16.0) g/dL Hct (37-47) % MCV (80-100) fL MCH (25-34) pg MCHC (32-36) g/dL RDW Std Deviation (36.4-46.3) fL RDW Coeff of Tiburcio (11.5-14.5) % Plt Count (130-400) K/uL MPV (7.4-10.4) fL Immature Gran % (Auto) % Neut % (Auto) % Lymph % (Auto) % Holt % (Auto) % Eos % (Auto) % Baso % (Auto) % Neut # (Auto) (1.4-6.5) K/uL Lymph # (Auto) (1.2-3.4) K/uL Holt # (Auto) (0.11-0.59) K/uL Eos # (Auto) (0-0.5) K/uL Baso # (Auto) (0-0.2) K/uL Immature Gran # (Auto) (0.00-0.02) K/uL Polychromasia Anisocytosis PT (9.0-12.0) Seconds INR (0.9-1.1) APTT (21.0-31.0) Seconds PTT Ratio VBG pH (7.36-7.41) VBG pCO2 (38-50) mmHg VBG pO2 mmHg VBG HCO3 mmol/L VBG O2 Saturation % VBG Base Excess mEq/L Barometric Pressure mm/Hg Sodium 130 L (136-145) mmol/L Potassium 3.5 (3.5-5.1) mmol/L Chloride 92 L (98-107) mmol/L Carbon Dioxide 29 (21-32) mmol/L Anion Gap 9.0 (3-11) BUN 45 H (7-18) mg/dl Creatinine 1.68 H (0.6-1.2) mg/dl Est Cr Clr Drug Dosing 29.0 ml/min Est GFR ( Amer) 35.6 Est GFR (Non-Af Amer) 30.7 BUN/Creatinine Ratio 26.7 H (10-20) Glucose 129 H (70-99) mg/dl Lactate 1.5 (0.4-2.0) mmol/L Calcium 9.3 (8.5-10.1) mg/dl Magnesium 2.2 (1.8-2.4) mg/dl Total Bilirubin 0.9 (0.2-1) mg/dl AST 21 (15-37) U/L ALT 16 (12-78) U/L Alkaline Phosphatase 172 H (45-117) U/L Ammonia (11-32) umol/L Troponin I 0.073 H* (0-0.045) ng/ml Total Protein 7.4 (6.4-8.2) gm/dl Albumin 3.0 L (3.4-5.0) gm/dl Globulin 4.4 H (2.5-4.0) gm/dl Albumin/Globulin Ratio 0.7 L (0.9-2) Procalcitonin 1.17 H (0-0.5) ng/ml Urine Color Urine Appearance (Clear) Urine pH (4.5-7.5) Ur Specific [place] (1.000-1.030) Urine Protein (Negative) Urine Glucose (UA) (Negative) Urine Ketones (Negative) Urine Blood (Negative) Urine Nitrite (Negative) Urine Bilirubin (Negative) Urine Urobilinogen (Negative) Ur Leukocyte Esterase (Negative) Urine RBC (0-4) /hpf Urine WBC (0-5) /hpf Ur Epithelial Cells (0-5) /lpf Urine Bacteria (Negative) Nasal Screen MRSA (PCR) (Negative) COVID-19 Eval Order Influ A Molecular Assay (Negative) Influ B Molecular Assay (Negative) SARS-CoV-2, RNA, NAAT (NEGATIVE) 10/19/20 10/19/20 10/19/20 Range/Units 13:36 13:36 13:46 WBC (4.8-10.8) K/uL RBC (4.2-5.4) M/uL Hgb (12.0-16.0) g/dL Hct (37-47) % MCV (80-100) fL MCH (25-34) pg MCHC (32-36) g/dL RDW Std Deviation (36.4-46.3) fL RDW Coeff of Tiburico (11.5-14.5) % Plt Count (130-400) K/uL MPV (7.4-10.4) fL Immature Gran % (Auto) % Neut % (Auto) % Lymph % (Auto) % Holt % (Auto) % Eos % (Auto) % Baso % (Auto) % Neut # (Auto) (1.4-6.5) K/uL Lymph # (Auto) (1.2-3.4) K/uL Holt # (Auto) (0.11-0.59) K/uL Eos # (Auto) (0-0.5) K/uL Baso # (Auto) (0-0.2) K/uL Immature Gran # (Auto) (0.00-0.02) K/uL Polychromasia Anisocytosis PT (9.0-12.0) Seconds INR (0.9-1.1) APTT (21.0-31.0) Seconds PTT Ratio VBG pH 7.43 H (7.36-7.41) VBG pCO2 42 (38-50) mmHg VBG pO2 72 mmHg VBG HCO3 28 mmol/L VBG O2 Saturation 92.2 % VBG Base Excess 3.0 mEq/L Barometric Pressure 738.0 mm/Hg Sodium (136-145) mmol/L Potassium (3.5-5.1) mmol/L Chloride (98-107) mmol/L Carbon Dioxide (21-32) mmol/L Anion Gap (3-11) BUN (7-18) mg/dl Creatinine (0.6-1.2) mg/dl Est Cr Clr Drug Dosing ml/min Est GFR ( Amer) Est GFR (Non-Af Amer) BUN/Creatinine Ratio (10-20) Glucose (70-99) mg/dl Lactate (0.4-2.0) mmol/L Calcium (8.5-10.1) mg/dl Magnesium (1.8-2.4) mg/dl Total Bilirubin (0.2-1) mg/dl AST (15-37) U/L ALT (12-78) U/L Alkaline Phosphatase (45-117) U/L Ammonia 20.3 (11-32) umol/L Troponin I (0-0.045) ng/ml Total Protein (6.4-8.2) gm/dl Albumin (3.4-5.0) gm/dl Globulin (2.5-4.0) gm/dl Albumin/Globulin Ratio (0.9-2) Procalcitonin (0-0.5) ng/ml Urine Color Dark Yellow Urine Appearance Cloudy A (Clear) Urine pH 7.5 (4.5-7.5) Ur Specific [place] 1.013 (1.000-1.030) Urine Protein 1+ H (Negative) Urine Glucose (UA) Negative (Negative) Urine Ketones Negative (Negative) Urine Blood 1+ H (Negative) Urine Nitrite Positive A (Negative) Urine Bilirubin Negative (Negative) Urine Urobilinogen Negative (Negative) Ur Leukocyte Esterase 3+ H (Negative) Urine RBC 0-4 (0-4) /hpf Urine WBC >30 H (0-5) /hpf Ur Epithelial Cells 5-10 H (0-5) /lpf Urine Bacteria 3+ H (Negative) Nasal Screen MRSA (PCR) (Negative) COVID-19 Eval Order Influ A Molecular Assay (Negative) Influ B Molecular Assay (Negative) SARS-CoV-2, RNA, NAAT (NEGATIVE) Administered Medications Discontinued Medications Sodium Chloride (Nss 1000ml) 1,000 mls @ 999 mls/hr IV .Q1H1M RAFY Stop: 10/19/20 13:45 Last Infusion: 10/19/20 14:15 Dose: 0 mls/hr Documented by: [id number] Admin: 10/19/20 13:14 Dose: 999 mls/hr Documented by: [id number] Cefepime HCl (Maxipime) 2,000 mg in 20 mls @ 5 mls/min IV NOW STA; Protocol Stop: 10/19/20 12:38 Last Admin: 10/19/20 13:28 Dose: 5 mls/min Documented by: [id number] Magnesium Sulfate/Dextrose (Magnesium Sulfate / D5w) 1 gm in 100 mls @ 200 mls/hr IV NOW STA Stop: 10/19/20 13:06 Last Infusion: 10/19/20 13:49 Dose: 0 mls/hr Documented by: [id number] Admin: 10/19/20 13:19 Dose: 200 mls/hr Documented by: [id number] Acetaminophen (Ofirmev) 1,000 mg in 100 mls @ 400 mls/hr IV NOW STA Stop: 10/19/20 12:51 Last Infusion: 10/19/20 13:32 Dose: 0 mls/hr Documented by: [id number] Admin: 10/19/20 13:17 Dose: 400 mls/hr Documented by: [id number] Ondansetron HCl (Ondansetron Inj 2 Mg/Ml 2 Ml Vial) 4 mg IV NOW STA Stop: 10/19/20 12:36 Last Admin: 10/19/20 13:14 Dose: 4 mg Documented by: [id number] Discharge Plan Visit Data Chief Complaint: Weakness Stated Complaint: Weakness, cough, sob, ROTH, nausea ED Provider: Juan Ruiz Discharge Problem: COPD exacerbation, Anemia, Fever, Acute UTI, Acute dehydration Patient Disposition: Admitted As Inpatient Forms Stand Alone Forms: My [facility] Prescriptions Prescriptions: No Action methotrexate (PF) 30 mg/0.6 mL auto-injector 15 mg SQ WEEKLY RF: 0 gabapentin 800 mg tablet 800 mg PO TID RF: 0 omega 9-mhz-bys-fish oil [Fish Oil] 1,000 mg (120 mg-180 mg) capsule 1 cap PO DAILY RF: 0 nitroglycerin 0.4 mg tablet, sublingual 0.4 mg sublingual DIRECTED PRN (Reason: Chest Pain) RF: 0 allopurinol 300 mg Tablet 300 mg PO DAILY RF: 0 atorvastatin 80 mg Tablet 80 mg PO HS RF: 0 omeprazole 40 mg Capsule,Delayed Release(Dr/Ec) 40 mg PO DAILY RF: 0 metoprolol succinate 25 mg Tablet Extended Release 24 Hr 12.5 mg PO DAILY RF: 0 ferrous gluconate 324 mg (38 mg iron) Tablet 324 mg PO TID RF: 0 multivitamin Tablet 1 tab PO DAILY RF: 0 folic acid 1 mg Tablet 1 mg PO DAILY RF: 0 tramadol 50 mg Tablet 50 mg PO BID PRN (Reason: Pain) RF: 0 furosemide [Lasix] 40 mg Tablet 40 mg PO BID RF: 0 spironolactone [Aldactone] 100 mg Tablet 100 mg PO QAM RF: 0 citalopram 40 mg tablet 40 mg PO HS RF: 0 aspirin [Aspirin Low Dose] 81 mg Tablet,Delayed Release (Dr/Ec) 81 mg PO DAILY RF: 0 tamsulosin 0.4 mg capsule 0.4 mg PO HS RF: 0 docusate sodium 100 mg capsule 100 mg PO BID PRN (Reason: Constipation) RF: 0 Referrals Referrals: Chadd Dudley MD [Primary Care Provider] - Discharge Problem: Anemia Qualifiers: Anemia type: unspecified type Qualified Code(s): D64.9 - Anemia, unspecified Fever Qualifiers: Fever type: unspecified Qualified Code(s): R50.9 - Fever, unspecified
[2020-10-19] MEDS ORDERED: ONDANSETRON INJ 2 MG/ML 2 ML VIAL IV STA (12:35)
[2020-10-19] MEDS ORDERED: CEFEPIME 2,000 MG/20 ML VIAL IV STA (12:35)
[2020-10-19] MEDS ORDERED: ACETAMINOPHEN 1,000 MG/100 ML VIAL IV STA (12:37)
[2020-10-19] MEDS ORDERED: MAGNESIUM SULFATE / D5W 1 GM/100 ML BAG IV STA (12:37)
[2020-10-19] MEDS ORDERED: SODIUM CHLORIDE 0.9% 1000ML 1,000 ML IV SCH (12:45)
--- NOTE | 2020-10-19 13:06 | Electrocardiogram Report ---
Test Reason : Blood Pressure : / mmHG Vent. Rate : 078 BPM Atrial Rate : 078 BPM P-R Int : 218 ms QRS Dur : 130 ms QT Int : 458 ms P-R-T Axes : 074 -31 042 degrees QTc Int : 522 ms Sinus rhythm with 1st degree A-V block with occasional Premature ventricular complexes Left axis deviation Non-specific intra-ventricular conduction block Cannot rule out Anterior infarct (cited on or before 19-OCT-2020) Abnormal ECG When compared with ECG of 20-SEP-2020 06:57, Left anterior fascicular block is no longer Present Inverted T waves have replaced nonspecific T wave abnormality in Anterior leads Confirmed by Daniel Ibarra ([id number]) on 10/19/2020 1:06:01 PM Referred By: ED Confirmed By:Xander Ibarra
[2020-10-19 13:28] LABS: Basophils # (auto) 0.01 K/uL (0-0.2); Basophils % (auto) 0.1 %; Hematocrit (blood only) 28.6 % (37-47); Hemoglobin 8.3 g/dL (12.0-16.0); Immature Granulocytes # (auto) 0.02 K/uL (0.00-0.02); Immature Granulocytes % (auto) 0.1 %; Lymphocytes # (auto) 0.29 K/uL (1.2-3.4); Mean Corpuscular Hemoglobin 25.4 pg (25-34); Mean Corpuscular Volume 87.5 fL (80-100); Mean Platelet Volume 9.5 fL (7.4-10.4); Monocytes # (auto) 0.67 K/uL (0.11-0.59); Monocytes % (auto) 4.7 %; Neutrophils % (auto) 93.1 %; Platelet Count 198 K/uL (130-400); RDW Coefficient of Variation 23.5 % (11.5-14.5); RDW Standard Deviation 72.2 fL (36.4-46.3); Red Blood Count 3.27 M/uL (4.2-5.4); White Blood Count 14.19 K/uL (4.8-10.8)
[2020-10-19 13:39] LABS: INR 1.2 (0.9-1.1); Partial Thromboplastin Ratio 1.1; Partial Thromboplastin Time 29.3 Seconds (21.0-31.0); Prothrombin Time 12.8 Seconds (9.0-12.0)
[2020-10-19 13:42] LABS: Anisocytosis Present; Polychromasia 2+
[2020-10-19 13:45] LABS: BUN Creatinine Ratio 26.7 (10-20); Calcium 9.3 mg/dl (8.5-10.1); Est GFR (African American) 35.6; Est GFR (Non-African American) 30.7; Magnesium 2.2 mg/dl (1.8-2.4); Potassium 3.5 mmol/L (3.5-5.1)
[2020-10-19 13:54] LABS: Oxygen Saturation VBG 92.2 %; pH VBG 7.43 (7.36-7.41)
[2020-10-19 13:55] LABS: Albumin Globulin Ratio 0.7 (0.9-2); Bilirubin,Total 0.9 mg/dl (0.2-1); Globulin 4.4 gm/dl (2.5-4.0); Total Protein 7.4 gm/dl (6.4-8.2); Troponin I 0.073 ng/ml (0-0.045)
[2020-10-19 13:55] LABS: Influenza A virus by PCR Negative (Negative); Influenza B virus by PCR Negative (Negative)
--- NOTE | 2020-10-19 13:59 | XRay Report ---
XR chest 1V portable HISTORY: 69 years-old Female SEPSIS acute sepsis COMPARISON: Chest radiograph 12/10/2019 TECHNIQUE: Portable AP view of the chest FINDINGS: Cardiac silhouette is enlarged, unchanged. Calcified plaque of the thoracic aorta. There is no pneumo thorax, pleural effusion, airspace consolidation or overt pulmonary edema. Degenerative changes of th e shoulders and spine. Surgical clips project over the neck. IMPRESSION: Cardiomegaly without acute process. ACT 112: Negative or not required by law. The above report was generated using voice recognition software. It may contain grammatical, syntax o r spelling errors. Electronically signed by: Trever Salgado M.D. 10/19/2020 1:57 PM
[2020-10-19 14:02] LABS: Appearance Urine Cloudy (Clear); Bilirubin Urine Negative (Negative); Blood Urine 1+ (Negative); Color Urine Dark Yellow; Glucose Urine UA Negative (Negative); Ketones Urine Negative (Negative); Leukocyte Esterase Urine 3+ (Negative); Nitrite Urine Positive (Negative); Specific Gravity Urine 1.013 (1.000-1.030); Urobilinogen Urine Negative (Negative); pH Urine 7.5 (4.5-7.5)
[2020-10-19 14:29] LABS: Protein Urine 1+ (Negative); Sulfosalicylic Acid Urine Positive (Negative)
[2020-10-19 14:32] LABS: Bacteria Urine 3+ (Negative); RBC Urine 0-4 /hpf (0-4); WBC Urine >30 /hpf (0-5)
--- NOTE | 2020-10-19 15:19 | CT Scan Report ---
CT SCAN OF THE ABDOMEN AND PELVIS WITHOUT IV CONTRAST CLINICAL HISTORY: Generalized abdominal pain. Nausea and headache. COMPARISON STUDY: Abdominal CT dated 04/05/2019. TECHNIQUE: CT scan of the abdomen and pelvis is performed from the lung bases to the proximal femora. Images are reviewed in the axial, sagittal, and coronal planes. IV contrast was not administered for this examination. A dose lowering technique was utilized adhering to the principles of ALARA. CT DOSE: 859.93 mGycm FINDINGS: Lung bases: The heart is enlarged and without pericardial effusion. The coronary arteries and mitral annulus are densely calcified. There is a small hiatal hernia. Diminished attenuation of the cardiac blood pool as compared to the myocardium suggests anemia. There is trace right pleural effusion and b ibasilar atelectasis. No airspace consolidation is seen typical for pneumonia. Liver: The unenhanced liver is normal in size and heterogeneous in attenuation. Nodularity of the hep atic surface contour suggests early change of cirrhosis. There is no intrahepatic biliary ductal dila tation. Gallbladder: Surgically absent noting clips in the gallbladder fossa. Spleen: The spleen is top normal in size measuring 13 cm in length. Pancreas: The unenhanced pancreas is moderately atrophic and grossly unremarkable. Adrenal glands: Unremarkable. Kidneys: The unenhanced kidneys demonstrate mild cortical atrophy and are without hydronephrosis. A r ight ureteral stent is in appropriate position. No calcifications are seen along the course of the st ent. There are 2 punctate nonobstructing right renal calculi. A 2 mm nonobstructing calculus is seen in the left kidney. Bilateral renal cysts measure up to 4.8 cm. Abdominal vasculature: There is advanced atherosclerotic calcification and mild ectasia of the abdomi nal aorta. A stent is partially visualized in the right femoral artery. Bowel: There is mild colonic diverticulosis without CT evidence of acute diverticulitis. No bowel obs truction is seen. The appendix is well-visualized and normal. Peritoneum: No intraperitoneal free air is seen. There is trace abdominopelvic ascites. Postoperative change is seen in the retroperitoneum. Lymphadenopathy: None. Pelvic viscera: The bladder is decompressed around a Monroe catheter and not well evaluated. The uteru s is surgically absent. No adnexal lesion is seen. Postoperative change is noted in the right groin. Skeletal structures: The skeletal structures are osteopenic. There is moderate to advanced lumbosacra l spondylosis and mild scoliosis. A 2.2 cm peripherally calcified structures identified within the in ferior aspect of the central spinal canal at the level of S3. This is unchanged from previous. No lyt ic or blastic lesions are seen. Calcific tendinopathy is seen at the origin of the hamstrings tendons . IMPRESSION: 1. Cardiomegaly and trace right pleural effusion. 2. There is trace abdominopelvic ascites. 3. Cirrhotic liver morphology. 4. A right ureteral stent is in appropriate position. No calcifications are seen along the course of the stent. 5. Tiny nonobstructing renal calculi are seen bilaterally. 6. Additional findings as above. ACT 112: Negative or not required by law. Electronically signed by: Jono Berg M.D. 10/19/2020 3:18 PM
--- NOTE | 2020-10-19 15:59 | History & Physical Report ---
Date of Service October 19, 2020 Assessment & Plan (1) Sepsis: (2) Complicated UTI (urinary tract infection): This is a 69 yo M with a complex medical history including alpha 1 antitrypsin deficiency, COPD, tobacco use, PAD, CAD, cirrhosis, combined systolic and diastolic CHF, Charcot foot, aortic stenosis, CKD stage III, rheumatoid arthritis and recently diagnosed vaginal squamous cell carcinoma and bladder mass s/p resection at [facility] on 10/02/20 who presents with weakness, disorientation and shortness of breath and was found to have acute metabolic encephalopathy in setting of sepsis 2/2 complicated UTI and KADEN on CKD. -Febrile at 38.3, BP of 90/47 improved to 101/61 with IVF, leukocytosis of 14.19 and procalcitonin elevated at 1.17. Lactic acid within normal limits -In setting of recent bladder resection on 10/04/20 -UA grossly abnormal. Urine and blood cultures pending -CT abd/pelvis demonstrates a right ureteral stent is in appropriate position. No calcifications are seen along the course of the stent -Continue empiric abx coverage with Cefepime. Added daptomycin -Monroe care (3) Acute metabolic encephalopathy: Lethargy in setting of acute infection, hypoxia -CT head without acute intracranial abnormality. VBG pH 7.43, ammonia level normal -Mentation improved after IV fluids. Expect continued improvement with O2 supplementation, abx -Reduce gabapentin dose from 800 to 200 TID, holding tramadol -Monitor closely (4) Acute respiratory failure with hypoxia: (5) COPD exacerbation: Initially hypoxic at 83% but improved to 99% on 2L NC -Known asthma and COPD but does not require home O2 -Smoker, has not been using inhalers, mild wheezing on lung auscultation. CXR without acute process -Abx coverage for sepsis, Duoneb Q4R -Hesitant to initiate steroid with acute infection and sensitive volume status- reassess need tomorrow (6) Acute kidney injury superimposed on chronic kidney disease: Cr elevated at 1.68 (baseline low-mid 1s) -Renally dose medication, gentle hydration -Hold diuretics for now (7) Elevated troponin: Troponin elevated at 0.073. Suspect demand ischemia in setting of anemia, KADEN on CKD, underlying valvular disease -No chest pain or acute ST changes on EKG -Monitor on telemetry, repeat EKG in AM (8) Bladder mass: S/p transurethral resection of bladder tumor by Dr. Mehta with right ureteral stent placement on 10/02/20 -Plans for removal of stent on 10/25/20 (9) Squamous cell carcinoma of vagina: Following with electrical equipment technician onc at [facility] for vaginal squamous cell carcinoma and was started on topical imiquimod cream 2x/week with instruction to increase to 3x/week after 2 weeks -Need to discuss dosing schedule with patient once mentation improves- imiquimod held for now (10) Anemia: Hgb slightly below baseline at 8.3 (baseline ~9-10), postop from recent bladder resection -1+ blood on UA, FOBT pending -Continue iron supplementation (11) Cirrhosis of liver: Trace abdominopelvic ascites on CT abd/pelvis -Giving albumin this evening. Continue to monitor volume status closely (12) Combined systolic and diastolic congestive heart failure: (13) Aortic stenosis: Echocardiogram from 10/06 not significantly changed from prior despite severe valvular disease and a slightly lower EF of 40 to 45% -Holding diuretics this evening due to hypotension 2/2 sepsis and KADEN -Reassess volume status tomorrow (14) Rheumatoid arthritis: Methotrexate held by supervisor steno pool (15) PAD (peripheral artery disease): Continue aspirin. Statin held while receiving IV dapto (16) Diabetes mellitus type 2, diet-controlled: Diet controlled DVT Ppx: SCDs for now in setting of anemia- consider adding SQ heparin if hgb remains stable Code status: CONDITIONAL CODE: Yes to CPR and shock, NO to mechanical ventilation PCP: Luis Enrique Dispo: Admitted to PCU. Discharge planning ordered. Patient seen in collaboration with Dr. Wiley. Please see addendum. History of Present Illness Chief Complaint: SOB, weakness, confusion Primary Care Provider: Chadd Dudley MD This is a 69 yo M with a complex medical history including alpha 1 antitrypsin deficiency, COPD, tobacco use, PAD, CAD, cirrhosis, combined systolic and diastolic CHF, Charcot foot, aortic stenosis, CKD stage III, rheumatoid arthritis and recently diagnosed vaginal squamous cell carcinoma and bladder mass s/p resection at [facility] on 10/02/20 who presents with weakness, disorientation and shortness of breath since yesterday. Patient was feeling fine yesterday and went to her rheumatology appointment with Dr. Fonseca but became weak and disoriented afterwards once she returned home. Had difficulty ambulating on her own and needed help from her . No facial droop or focal weakness but lethargic with occasional slurred speech and difficulty concentrating. Also complaining of difficulty urinating with some incontinence. Brought to ED for further evaluation. Was recently admitted to [facility] 1 month ago for chest pain and anemia requiring 1u prbc transfusion prior to discharge. On 10/02/20, patient underwent transurethral resection of bladder tumor by Dr. Mehta with right ureteral stent placement. Plans for removal of stent on 10/25/20. Is also following with electrical equipment technician onc at [facility] for vaginal squamous cell carcinoma and was started on topical imiquimod cream. In the ED, patient is lethargic but able to respond appropriately to questions. Is febrile at 38.3, with BP of 90/47. Initially hypoxic at 83% but improved to 99% on 2L NC. Leukocytosis of 14.19 with procalcitonin elevated at 1.17. Lactic acid within normal limits. VBG pH 7.43 and ammonia level normal. Hemoglobin slightly below baseline at 8.3 (baseline ~9-10). Troponin elevated at 0.073. COVID-19 test negative. UA abnormal. Endorses chills, headache, fatigue, generalized weakness, shortness of breath and inability to urinate as well as intermittent incontinence. Also with cough, but states that is her baseline. Denies any lightheadedness, confusion, chest pain, palpitations, nausea, vomiting, abdominal pain, dysuria, diarrhea or constipation. Reports smoking 3 cigarettes daily. Allergies Allergy/AdvReac Type Severity Reaction Status Date / Time Penicillins Allergy Intermediate hives/upset Verified 10/19/20 15:39 stomach/diarrhea Iodinated Contrast Media AdvReac Intermediate severe Verified 10/19/20 15:39 [Iodinated Contrast- Oral vomiting and IV Dye] oxycodone [From Percocet] AdvReac Intermediate vomiting Verified 10/19/20 15:39 Home Medications Medication Instructions Recorded Confirmed Type gabapentin 800 mg tablet 800 mg PO TID tab 07/22/18 10/19/20 History omega 4-ytx-cbe-fish oil 1,000 mg 1 cap PO DAILY cap 07/22/18 10/19/20 History (120 mg-180 mg) capsule atorvastatin 80 mg PO HS 03/01/19 10/19/20 History ferrous gluconate 324 mg PO TID 03/01/19 10/19/20 History folic acid 1 mg PO DAILY 03/01/19 10/19/20 History metoprolol succinate 12.5 mg PO DAILY 03/01/19 10/19/20 History multivitamin 1 tab PO DAILY 03/01/19 10/19/20 History omeprazole 40 mg PO DAILY 03/01/19 10/19/20 History nitroglycerin 0.4 mg SUBLINGUAL DIRECTED PRN 04/05/19 10/19/20 History tramadol 50 mg PO BID PRN 07/15/19 10/19/20 History allopurinol 300 mg PO DAILY 01/03/20 10/19/20 History methotrexate (PF) 30 mg/0.6 mL 15 mg SQ WEEKLY ml 03/03/20 10/19/20 History subcutaneous auto-injector furosemide [Lasix] 40 mg PO BID 07/21/20 10/19/20 History spironolactone [Aldactone] 100 mg PO QAM 07/21/20 10/19/20 History aspirin [Aspirin Low Dose] 81 mg PO DAILY 09/19/20 10/19/20 History citalopram 40 mg PO HS 09/19/20 10/19/20 History docusate sodium 100 mg PO BID PRN 10/19/20 10/19/20 History imiquimod 1 applic TOPICAL UD 10/19/20 10/19/20 History tamsulosin 0.4 mg PO HS 10/19/20 10/19/20 History Past Med/Surg History Medical History (Updated 10/19/20 @ 20:04 by Jazzmine Schmitz PA-C) Acid reflux Aortic stenosis Aortic valve regurgitation Bladder mass s/p resection 10/02/20 at [facility] by Dr. Everett CAD (coronary artery disease) 2004 -PCI to unknown vessel Charcot foot due to diabetes mellitus Chronic combined systolic and diastolic CHF (congestive heart failure) Cirrhosis of liver "UNDETERMINED ORIGIN" CKD (chronic kidney disease), stage III pt denies having any problems with kidneys. Combined systolic and diastolic congestive heart failure COPD (chronic obstructive pulmonary disease) Diabetes mellitus type 2, diet-controlled Diabetic peripheral neuropathy Gout History of alcohol abuse History of anxiety History of depression History of endometriosis "STAGE 1 GRADE 1" History of sleep apnea HX CPAP HTN (hypertension) Hypercholesteremia SARANYA (iron deficiency anemia) Impaired fasting glucose A1C 6/1% 05/2019 Ischemic cardiomyopathy EF 40-44% Mitral regurgitation PAD (peripheral artery disease) Rheumatoid arthritis Snores Squamous cell carcinoma of vagina Valvular heart disease Surgical History History of anesthesia reaction PT REPORTS URINARY RETENTION POST OP, USUALLY REQUIRING STRAIGHT CATH History of bilateral carotid endarterectomy History of cardiac cath 2004 ..TOLD HAD 2 MN'S - STENT X1 History of cholecystectomy History of colonoscopy History of hysterectomy supracervical History of left below knee amputation History of lumbar discectomy S/P vascular surgery 11/02/2020-right common femoral endarterectomy, right femoral and posterior tibial bypass Family History Father Family history of diabetes mellitus Family history of COPD (chronic obstructive pulmonary disease) Sister Breast cancer Social History Smoking Status: Current every day smoker Tobacco Type: Cigarettes Years Smoked: 54; Cigarettes Per Day: 3; Second Hand Exposure: No; Hx Alcohol Use: No Hx Substance Use: No Preferred Language: Swedish Communication Ability: Effective Visual Impairment: Limited Hearing Ability: Normal Salesperson Women'S Dresses Required: Yes Beliefs That Will Affect Care: None marital status: Current Living Situation: Spouse current occupational status: disabled Other Information That Helps Us Care for You: No Feels Safe at Home: Yes Assistive Devices: Denture - Upper, Denture - Lower and Wheelchair Review of Systems Review of Systems: At least ten systems reviewed and negative except as noted in the HPI. Physical Exam Physical Exam: General Appearance: vitals as above, lethargic but communicating appropriately, appears chronically ill Head: normocephalic, atraumatic Eyes: normal inspection, PERRL, conjunctivae normal, anicteric sclerae ENT: external ear and nose normal, oropharynx normal Neck: normal visual inspection, trachea midline, no thyromegaly Respiratory: increased respiratory effort, NC O2 in place, wheezing R lung base, otherwise poor air movement. No accessory muscle use Cardiovascular: regular rate, rhythm, systolic murmur grade 3/6, normal peripheral pulses, no BLE edema. Vessels: no JVD Chest: normal inspection of chest Abdomen/GI: normal bowel sounds, soft, nontender, no hepatosplenomegaly : Monroe in place draining dark urine Extremities/Musculoskeletal: no cyanosis or clubbing, extremities motor strength 5/5. + L BKA Neurologic: PERRL, EOMI, accommodation nl, no face palsy, CN's II-XI intact bilaterally and moves all extremities Psychiatric: A+Ox3, euthymic affect Skin: no rashes, normal color, warm/dry Results & Data Results & Data ([facility]) Vital Signs (Past 12 Hours) Vital Signs Temp Pulse Resp BP Pulse Ox 10/19/20 15:15 72 15 90/47 L 99 10/19/20 15:08 73 15 98 10/19/20 14:45 74 15 96/49 L 99 10/19/20 14:32 37.7 C H 10/19/20 14:30 74 16 97/49 L 99 10/19/20 14:15 78 14 97/46 L 100 10/19/20 14:00 77 17 111/49 L 100 10/19/20 13:45 77 21 104/60 100 10/19/20 13:35 99 10/19/20 13:30 74 19 118/61 100 10/19/20 13:27 77 19 110/65 100 10/19/20 13:15 79 18 110/65 99 10/19/20 13:09 83 L 10/19/20 13:00 83 19 106/55 L 99 10/19/20 12:45 78 18 83 L 10/19/20 12:31 77 19 97 10/19/20 12:30 77 15 106/61 99 10/19/20 12:22 78 16 99 10/19/20 12:21 82 17 99 10/19/20 12:18 87 18 109/55 L 91 10/19/20 12:13 38.3 C H 80 20 109/55 L 94 Laboratory Results Short CBC 10/19/20 Range/Units 13:12 WBC 14.19 H (4.8-10.8) K/uL Hgb 8.3 L (12.0-16.0) g/dL Hct 28.6 L (37-47) % Plt Count 198 (130-400) K/uL BMP 10/19/20 13:12 Sodium 130 L Potassium 3.5 Chloride 92 L Carbon Dioxide 29 BUN 45 H Creatinine 1.68 H Glucose 129 H Calcium 9.3 Cardiac Enzymes 10/19/20 Range/Units 13:12 Troponin I 0.073 H* (0-0.045) ng/ml Liver Function 10/19/20 Range/Units 13:12 Total Bilirubin 0.9 (0.2-1) mg/dl AST 21 (15-37) U/L ALT 16 (12-78) U/L Alkaline Phosphatase 172 H (45-117) U/L Albumin 3.0 L (3.4-5.0) gm/dl Urine 10/19/20 Range/Units 13:46 Urine Color Dark Yellow Urine Appearance Cloudy A (Clear) Urine pH 7.5 (4.5-7.5) Ur Specific [place] 1.013 (1.000-1.030) Urine Protein 1+ H (Negative) Urine Glucose (UA) Negative (Negative) Diagnostic Findings CT head: IMPRESSION: 1. Motion degraded study 2. No acute intracranial findings CXR: IMPRESSION: Cardiomegaly without acute process. CT abd/pelvis: IMPRESSION: 1. Cardiomegaly and trace right pleural effusion. 2. There is trace abdominopelvic ascites. 3. Cirrhotic liver morphology. 4. A right ureteral stent is in appropriate position. No calcifications are seen along the course of the stent. 5. Tiny nonobstructing renal calculi are seen bilaterally. 6. Additional findings as above. Code Status & VTE Plan VTE Prophylaxis Plan VTE Prophylaxis will be ordered: Yes Supervising Physician Co-Signing Physician Notes Pt seen and examined by me, care coordinated with Jazzmine Schmitz PA-C, pls refer to her documentation above for further detail. Mrs. Hinkle is a 69 yo female with a complex medical history including alpha 1 antitrypsin deficiency, COPD, tobacco use, PAD, CAD, cirrhosis, combined systolic and diastolic CHF, Charcot foot, aortic stenosis, CKD stage III, rheumatoid arthritis and recently diagnosed vaginal squamous cell carcinoma and bladder mass s/p resection at [facility] on 10/02/20 who presents with weakness, disorientation and shortness of breath since yesterday. In the ED patient is febrile with temperatures above 38C, hypotensive and hypoxic. She is is also somnolent on physical exam but able to answer questions appropriately. Leukocytosis of 14.19 with procalcitonin elevated at 1.17. UA abnormal, Monroe catheter placed as pt reported difficulty w/ urination. Heart sounds regular,Lung sounds mostly clear, mild crackles at the right base noted, no significant wheezing noted or rhonchi. Abdomen soft, nontender, nondistended. Patient is able to move all extremities spontaneously. She is ill- appearing, somnolent, however able to answer all questions appropriately. Started empiric treatment in ED with cefepime for urosepsis. Given recent surgery for bladder mass, will also added daptomycin. Continue IV fluids given hypotension, and KADEN. IV Ofirmev for fever. Closely monitor hemodynamic status and follow-up on cultures. Kelin Wiley MD (1) Anemia Anemia type: unspecified type Qualified Code(s): D64.9 - Anemia, unspecified
[2020-10-19] MEDS ORDERED: SODIUM CHLORIDE 0.9% 1000ML 500 ML IV ONE ×2 (16:03→21:40)
[2020-10-19] MEDS ORDERED: ACETAMINOPHEN 325 MG TAB PO PRN (17:20)
[2020-10-19] MEDS ORDERED: ONDANSETRON INJ 2 MG/ML 2 ML VIAL IV PRN (17:20)
[2020-10-19] MEDS ORDERED: CEFEPIME CONSULT ACTIVE PRN (17:46)
--- NOTE | 2020-10-19 18:21 | CT Scan Report ---
CT head/brain wo con CLINICAL HISTORY: lethargy, slurred speech POSSIBLE ACUTE STROKE COMPARISON STUDY: 12/10/2019 TECHNIQUE: Axial CT of the brain is performed from the vertex to the skull base. IV contrast was not administered for this examination. A dose lowering technique was utilized adhering to the principles of ALARA. CT DOSE: 1074.96 mGy.cm FINDINGS: No intra or extra-axial mass lesions are visualized. There is no CT evidence of acute cortical infarc tion. There is no evidence of midline shift. There is no acute hemorrhage. No calvarial fractures ar e visualized. There are patchy white matter hypodensities likely on a small vessel basis. There is no evidence of pathologic ventricular dilatation. There is no evidence of acute sinusitis The examination is motion degraded. IMPRESSION: 1. Motion degraded study 2. No acute intracranial findings ACT 112: Negative or not required by law. Electronically signed by: Tonny Mar M.D. 10/19/2020 6:20 PM
[2020-10-19] MEDS: ALBUMIN 25% 12.5 GM/50 ML VIAL IV SCH ×2 (18:36→21:42)
[2020-10-19] MEDS ORDERED: DAPTOmycin 300 MG in SYRINGE 0 ML IV SCH (19:00)
[2020-10-19] MEDS ORDERED: NITROGLYCERIN SL 0.4 MG/TAB TAB SL PRN (19:44)
[2020-10-19] MEDS: ACETAMINOPHEN 1,000 MG/100 ML VIAL IV PRN (20:21)
[2020-10-19] MEDS: ALBUT/IPRATROP 3MG/0.5MG NEB 3 ML VIAL NEB SCH (20:25)
[2020-10-19] MEDS: TAMSULOSIN HCL 0.4 MG CAP PO SCH (20:52)
[2020-10-19] MEDS: CITALOPRAM 20 MG TAB PO SCH (20:52)
[2020-10-19] MEDS: GABAPENTIN 100 MG CAP PO SCH (20:53)
[2020-10-19] MEDS ORDERED: DOCUSATE SODIUM 100 MG CAP PO PRN (21:00)
[2020-10-19] MEDS ORDERED: ACETAMINOPHEN 1,000 MG/100 ML VIAL IV PRN (21:05)
[2020-10-19] MEDS ORDERED: ALBUT/IPRATROP 3MG/0.5MG NEB 3 ML VIAL NEB PRN (21:06)
[2020-10-19] MEDS ORDERED: HEPARIN SOD 5,000 UNIT/0.5 ML VIAL SQ SCH (22:00)
[2020-10-20] MEDS: CEFEPIME 2,000 MG in SYRINGE 0 ML IV SCH ×2 (01:28→13:43)
[2020-10-20] MEDS: ALBUT/IPRATROP 3MG/0.5MG NEB 3 ML VIAL NEB SCH ×3 (07:08→15:34)
--- NOTE | 2020-10-20 07:20 | XRay Report ---
XR chest 1V portable HISTORY: 69 years-old Female follow up/ hypoxia acute hypoxia COMPARISON: Chest radiograph of same day at 1:35 PM TECHNIQUE: Portable AP view of the chest FINDINGS: Cardiac silhouette is enlarged. Calcified plaque of the thoracic aorta. Pulmonary vascular congestion . No pneumothorax, large pleural effusion, overt pulmonary edema or airspace consolidation typical fo r pneumonia. Trace pleural effusions. Degenerative changes of the shoulders and spine. IMPRESSION: Cardiomegaly with pulmonary vascular congestion. ACT 112: Negative or not required by law. The above report was generated using voice recognition software. It may contain grammatical, syntax o r spelling errors. Electronically signed by: Trever Salgado M.D. 10/20/2020 7:18 AM
--- NOTE | 2020-10-20 07:47 | Electrocardiogram Report ---
Test Reason : Blood Pressure : / mmHG Vent. Rate : 083 BPM Atrial Rate : 083 BPM P-R Int : 230 ms QRS Dur : 126 ms QT Int : 380 ms P-R-T Axes : 073 -41 055 degrees QTc Int : 446 ms Sinus rhythm with 1st degree A-V block Left axis deviation Non-specific intra-ventricular conduction block Nonspecific T wave abnormality Abnormal ECG When compared with ECG of 19-OCT-2020 12:22, Premature ventricular complexes are no longer Present QT has shortened Confirmed by Daniel Ibarra ([id number]) on 10/20/2020 7:47:44 AM Referred By: REFERRED SELF Confirmed By:Xander Ibarra
[2020-10-20] MEDS: ACETAMINOPHEN 1,000 MG/100 ML VIAL IV PRN (07:56)
[2020-10-20 08:00] LABS: Hematocrit (blood only) 24.3 % (37-47); Hemoglobin 7.1 g/dL (12.0-16.0); Mean Corpuscular Hemoglobin 25.5 pg (25-34); Mean Corpuscular Hgb Conc 29.2 g/dL (32-36); Mean Corpuscular Volume 87.4 fL (80-100); Mean Platelet Volume 10.5 fL (7.4-10.4); Platelet Count 171 K/uL (130-400); RDW Coefficient of Variation 23.2 % (11.5-14.5); RDW Standard Deviation 72.8 fL (36.4-46.3); Red Blood Count 2.78 M/uL (4.2-5.4); White Blood Count 10.44 K/uL (4.8-10.8)
[2020-10-20] MEDS: FERROUS GLUCONATE 324 MG TAB PO SCH ×2 (08:01→16:55)
[2020-10-20] MEDS: allopurinoL 300 MG TAB PO SCH (08:01)
[2020-10-20] MEDS: METOPROLOL SUCC 25MG EXT REL TAB PO SCH (08:01)
[2020-10-20] MEDS: FOLIC ACID 1 MG TAB PO SCH (08:01)
[2020-10-20] MEDS: OMEGA-3 (PURIFIED FISH OIL) 1 GM CAP PO SCH (08:02)
[2020-10-20] MEDS: GABAPENTIN 100 MG CAP PO SCH (08:02)
[2020-10-20] MEDS: PANTOprazole 40 MG TAB PO SCH (08:02)
[2020-10-20 08:29] LABS: BUN Creatinine Ratio 30.2 (10-20); Creatinine Clr Calc Pharmacy 35.5 ml/min; Est GFR (African American) 45.1; Est GFR (Non-African American) 38.9; Potassium 3.5 mmol/L (3.5-5.1)
[2020-10-20] MEDS ORDERED: ASPIRIN 81 MG ECTAB PO SCH (09:00)
[2020-10-20] MEDS: MULTIVITAMIN TAB PO SCH (09:02)
[2020-10-20 10:44] LABS: Hematocrit (blood only) 24.2 % (37-47); Hemoglobin 7.1 g/dL (12.0-16.0)
[2020-10-20] MEDS ORDERED: SODIUM CHLORIDE 0.9% 250 ML IV PRN (12:02)
[2020-10-20] MEDS ORDERED: FUROSEMIDE 20 MG TAB PO ONE ×2 (12:04→21:00)
[2020-10-20] MEDS: GABAPENTIN 400 MG CAP PO SCH ×2 (13:40→20:00)
[2020-10-20] MEDS: ACETAMINOPHEN 500 MG TAB PO PRN (17:46)
--- NOTE | 2020-10-20 19:47 | Hospitalist Progress Note ---
Date of Service October 20, 2020 Assessment & Plan (1) Sepsis: (2) Complicated UTI (urinary tract infection): This is a 69 yo M with a complex medical history including alpha 1 antitrypsin deficiency, COPD, tobacco use, PAD, CAD, cirrhosis, combined systolic and diastolic CHF, Charcot foot, aortic stenosis, CKD stage III, rheumatoid arthritis and recently diagnosed vaginal squamous cell carcinoma and bladder mass s/p resection at [facility] on 10/02/20 who presents with weakness, disorientation and shortness of breath and was found to have acute metabolic encephalopathy in setting of sepsis 2/2 complicated UTI and KADEN on CKD. Met sepsis criteria on admission with leukocytosis 14.9 and febrile with elevated procalcitonin UA on admission positive for nitrite, leukocytes and bacteria COVID 19 and influenza negative on admission CT abd/pevis showed a right ureteral stent is in appropriate position. No calcifications are seen along the course of the stent. Received IV cefepime and dapto on admission Urine cx and blood cx potive for gram negative bacilli Will D/C dapto and continue IV cefepime Will repeat blood cx Continue follow up closely (3) Acute metabolic encephalopathy: Lethargy in setting of acute infection, hypoxia CT head showed no acute intracranial abnormality Continue gabapentin at 400mg TID for now Clinically improves (4) Acute respiratory failure with hypoxia: (5) COPD exacerbation: Hypoxia on admission CXR this morning showed cardiomegaly with pulmonary vascular congestion. Continue resp treatment Continue oxygen supplement (6) Acute kidney injury superimposed on chronic kidney disease: Cr elevated at 1.68 on admission (baseline low-mid 1s) Received IVF on admission Creatinine 1.3 today Lasix 20mg x1 given due to pulmonary vascular congestion seen on CXR and blood transfusion Continue monitor BMP (7) Elevated troponin: Mostly due to demand ischemia due to sepsi, anemia and KADEN Troponin elevated at 0.073 on admission, trending down at 0.059 EKG showed no acute ischemic changes On aspirin and metoprolol, but consider to hold aspirin due to low hemoglobin Will resume Statin Continue monitor in tele (8) Bladder mass: S/p transurethral resection of bladder tumor by Dr. Mehta with right ureteral stent placement on 10/02/20 -Plans for removal of stent on 10/25/20 (9) Squamous cell carcinoma of vagina: Following with lighting director onc at [place] for vaginal squamous cell carcinoma and was started on topical imiquimod cream 2x/week with instruction to increase to 3x/week after 2 weeks (10) Anemia: Hgb dropped to 7.1 Recently was transfused 1 unit PRBC in September and crossed done and transfused 1 unit PRBC today Continue monitor H/H Continue iron supplementation (11) Cirrhosis of liver: Trace abdominopelvic ascites on CT abd/pelvis Received albumin this evening. Will give another dose of Lasix due to blood transfusion (12) Combined systolic and diastolic congestive heart failure: (13) Aortic stenosis: Echocardiogram from 10/06 not significantly changed from prior despite severe valvular disease and a slightly lower EF of 40 to 45% CXR this morning showed Cardiomegaly with pulmonary vascular congestion. Will give an additional lasix 20mg tonight after blood transfusion Lasix on hold due to KADEN (14) Rheumatoid arthritis: Methotrexate held by director of psychology (15) PAD (peripheral artery disease): Will resume Statin Will hold aspirin due to Low hgb (16) Diabetes mellitus type 2, diet-controlled: Diet controlled DVT Ppx: SCDs for now in setting of anemia- Code status: CONDITIONAL CODE: Yes to CPR and shock, NO to mechanical ventilation Admission and Anticipated Discharge Date Admission Date: October 19, 2020 Subjective Pt was seen and examined for follow up for weakness and SOB Lying in bed with no distress and eating breakfast Pt said that she feels weak She said that she does not have any energy to do anything She said that she felt like that 2 weeks ago when she had to get blood transfusion She denies any bleeding Denies any chest pain, palpitation, dizziness Physical Exam Physical Exam: General- No acute distress Head- atraumatic Eyes- PERRL, EOMI, ENT- oropharynx clear Neck- supple, no JVD Lungs- diminished breath sound Heart- regular rhythm; +systolic murmur Abdomen- normal bowel sounds, soft, nontender Extremities- no calf tenderness, +trace edema Neuro- alert, oriented x 3; PERRL, EOMI; no facial palsy; no dysarthria Skin- warm & dry Results & Data Results & Data ([facility]) Vital Signs (Past 12 Hours) Vital Signs Temp Pulse Pulse Resp BP BP BP 10/20/20 18:51 37.5 C 90 18 106/58 L 10/20/20 17:38 38.2 C H 91 H 109/65 10/20/20 17:03 37.1 C 91 H 134/70 10/20/20 16:03 37.2 C 87 118/73 10/20/20 16:00 77 10/20/20 15:36 78 18 10/20/20 15:03 36.9 C 101/62 10/20/20 14:33 36.7 C 77 117/67 10/20/20 14:18 36.6 C 78 97/58 L 10/20/20 13:58 36.9 C 79 18 96/50 L 10/20/20 12:34 36.9 C 74 19 101/60 10/20/20 10:46 77 18 10/20/20 10:00 10/20/20 08:30 20 10/20/20 08:00 84 16 10/20/20 07:56 37.8 C H 88 19 103/62 Pulse Ox 10/20/20 18:51 92 10/20/20 17:38 90 10/20/20 17:03 92 10/20/20 16:03 90 10/20/20 16:00 10/20/20 15:36 98 10/20/20 15:03 97 10/20/20 14:33 99 10/20/20 14:18 98 10/20/20 13:58 100 10/20/20 12:34 100 10/20/20 10:46 93 10/20/20 10:00 98 10/20/20 08:30 98 10/20/20 08:00 98 10/20/20 07:56 98 (1) Anemia Anemia type: unspecified type Qualified Code(s): D64.9 - Anemia, unspecified
[2020-10-20] MEDS: TAMSULOSIN HCL 0.4 MG CAP PO SCH (20:01)
[2020-10-20] MEDS: CITALOPRAM 20 MG TAB PO SCH (20:01)
[2020-10-20 22:08] LABS: Hematocrit (blood only) 26.2 % (37-47); Hemoglobin 7.8 g/dL (12.0-16.0)
[2020-10-21] MEDS: CEFEPIME 2,000 MG in SYRINGE 0 ML IV SCH ×2 (01:46→14:00)
[2020-10-21] MEDS ORDERED: SODIUM CHLORIDE 0.9% 250 ML IV PRN (04:03)
[2020-10-21] MEDS: ACETAMINOPHEN 500 MG TAB PO PRN ×2 (04:03→16:16)
[2020-10-21] MEDS: FERROUS GLUCONATE 324 MG TAB PO SCH ×2 (08:00→17:00)
[2020-10-21] MEDS: METOPROLOL SUCC 25MG EXT REL TAB PO SCH (09:00)
[2020-10-21] MEDS: GABAPENTIN 400 MG CAP PO SCH ×3 (09:00→22:26)
[2020-10-21] MEDS: FOLIC ACID 1 MG TAB PO SCH (09:00)
[2020-10-21] MEDS: allopurinoL 300 MG TAB PO SCH (09:00)
[2020-10-21] MEDS: MULTIVITAMIN TAB PO SCH (09:00)
[2020-10-21] MEDS: OMEGA-3 (PURIFIED FISH OIL) 1 GM CAP PO SCH (09:00)
[2020-10-21] MEDS: PANTOprazole 40 MG TAB PO SCH (09:00)
[2020-10-21] MEDS ORDERED: FUROSEMIDE 20 MG TAB PO ONE (13:10)
[2020-10-21 17:29] LABS: BUN Creatinine Ratio 33.6 (10-20); Calcium 8.2 mg/dl (8.5-10.1); Creatinine Clr Calc Pharmacy 34.5 ml/min; Est GFR (African American) 43.6; Est GFR (Non-African American) 37.6
[2020-10-21 17:41] LABS: Hemoglobin 8.2 g/dL (12.0-16.0); Mean Corpuscular Hemoglobin 25.6 pg (25-34); Mean Corpuscular Hgb Conc 29.3 g/dL (32-36); Mean Corpuscular Volume 87.5 fL (80-100); Mean Platelet Volume 9.9 fL (7.4-10.4); Nucleated RBC # (auto) 0.02 K/uL (0-0); Nucleated RBC % (auto) 0.2 %; Platelet Count 163 K/uL (130-400); RDW Coefficient of Variation 21.7 % (11.5-14.5); RDW Standard Deviation 69.1 fL (36.4-46.3)
[2020-10-21 18:31] LABS: Potassium 4.1 mmol/L (3.5-5.1)
--- NOTE | 2020-10-21 18:54 | Hospitalist Progress Note ---
Date of Service October 21, 2020 Assessment & Plan (1) Sepsis: (2) Complicated UTI (urinary tract infection): This is a 69 yo M with a complex medical history including alpha 1 antitrypsin deficiency, COPD, tobacco use, PAD, CAD, cirrhosis, combined systolic and diastolic CHF, Charcot foot, aortic stenosis, CKD stage III, rheumatoid arthritis and recently diagnosed vaginal squamous cell carcinoma and bladder mass s/p resection at [facility] on 10/02/20 who presents with weakness, disorientation and shortness of breath and was found to have acute metabolic encephalopathy in setting of sepsis 2/2 complicated UTI and KADEN on CKD. Met sepsis criteria on admission with leukocytosis 14.9 and febrile with elevated procalcitonin UA on admission positive for nitrite, leukocytes and bacteria COVID 19 and influenza negative on admission CT abd/pevis showed a right ureteral stent is in appropriate position. No calcifications are seen along the course of the stent. Received IV cefepime and dapto on admission Urine cx and blood cx potive for gram negative bacilli - Pseudomonas Continue IV Cefepime Repeat blood cx no growth so far Continue follow up closely (3) Acute metabolic encephalopathy: Lethargy in setting of acute infection, hypoxia CT head showed no acute intracranial abnormality Continue gabapentin at 400mg TID for now Clinically improves (4) Acute respiratory failure with hypoxia: (5) COPD exacerbation: Hypoxia on admission CXR this morning showed cardiomegaly with pulmonary vascular congestion. Continue resp treatment Continue oxygen supplement (6) Acute kidney injury superimposed on chronic kidney disease: Cr elevated at 1.68 on admission (baseline low-mid 1s) Received IVF on admission Creatinine 1.3 today Lasix 20mg x1 given due to pulmonary vascular congestion seen on CXR and blood transfusion Continue monitor BMP (7) Elevated troponin: Mostly due to demand ischemia due to sepsi, anemia and KADEN Troponin elevated at 0.073 on admission, trending down at 0.059 EKG showed no acute ischemic changes On aspirin and metoprolol, but consider to hold aspirin due to low hemoglobin Will resume Statin Continue monitor in tele (8) Bladder mass: S/p transurethral resection of bladder tumor by Dr. Mehta with right ureteral stent placement on 10/02/20 -Plans for removal of stent on 10/25/20 (9) Squamous cell carcinoma of vagina: Following with motor coach supervisor onc at [place] for vaginal squamous cell carcinoma and was started on topical imiquimod cream 2x/week with instruction to increase to 3x/week after 2 weeks (10) Anemia: Hgb dropped to 7.1, He received 2 units PRBC so far Hgb 9.1 today Continue monitor H/H Continue iron supplementation (11) Cirrhosis of liver: Trace abdominopelvic ascites on CT abd/pelvis Continue monitor (12) Combined systolic and diastolic congestive heart failure: (13) Aortic stenosis: Echocardiogram from 10/06 not significantly changed from prior despite severe valvular disease and a slightly lower EF of 40 to 45% CXR this morning showed Cardiomegaly with pulmonary vascular congestion. Will give an additional lasix 20mg tonight after blood transfusion Lasix on hold due to KADEN Will resume in am (14) Rheumatoid arthritis: Methotrexate held by capper machine operator (15) PAD (peripheral artery disease): Will resume Statin Continue to hold aspirin due to Low hgb (16) Diabetes mellitus type 2, diet-controlled: Diet controlled DVT Ppx: SCDs for now in setting of anemia- Code status: CONDITIONAL CODE: Yes to CPR and shock, NO to mechanical ventilation Admission and Anticipated Discharge Date Admission Date: October 19, 2020 Subjective Pt was seen and examined for follow up for weakness and SOB Lying in bed with no distress and eating breakfast Pt said that she feels much better today She was saturated well on RA this morning Denies any chest pain, palpitation, dizziness Physical Exam Physical Exam: General- No acute distress Head- atraumatic Eyes- PERRL, EOMI, ENT- oropharynx clear Neck- supple, no JVD Lungs- diminished breath sound Heart- regular rhythm; +systolic murmur Abdomen- normal bowel sounds, soft, nontender Extremities- no calf tenderness, +trace edema Neuro- alert, oriented x 3; PERRL, EOMI; no facial palsy; no dysarthria Skin- warm & dry Results & Data Results & Data ([facility]) Vital Signs (Past 12 Hours) Vital Signs Temp Pulse Pulse Resp BP Pulse Ox 10/21/20 16:00 37.5 C 79 81 18 110/58 L 92 (1) Anemia Anemia type: unspecified type Qualified Code(s): D64.9 - Anemia, unspecified
[2020-10-21 20:01] LABS: Hematocrit (blood only) 30.9 % (37-47); Hemoglobin 9.1 g/dL (12.0-16.0)
[2020-10-21] MEDS: TAMSULOSIN HCL 0.4 MG CAP PO SCH (22:26)
[2020-10-21] MEDS: CITALOPRAM 20 MG TAB PO SCH (22:26)
[2020-10-21] MEDS: ATORVASTATIN 40 MG TAB PO SCH (22:27)
[2020-10-22] MEDS: ACETAMINOPHEN 500 MG TAB PO PRN ×2 (00:05→09:04)
[2020-10-22] MEDS: CEFEPIME 2,000 MG in SYRINGE 0 ML IV SCH (01:43)
[2020-10-22 07:43] LABS: Hematocrit (blood only) 30.8 % (37-47); Hemoglobin 9.2 g/dL (12.0-16.0); Mean Corpuscular Hemoglobin 26.1 pg (25-34); Mean Corpuscular Hgb Conc 29.9 g/dL (32-36); Mean Corpuscular Volume 87.5 fL (80-100); Mean Platelet Volume 10.2 fL (7.4-10.4); Platelet Count 176 K/uL (130-400); RDW Coefficient of Variation 20.6 % (11.5-14.5); RDW Standard Deviation 65.4 fL (36.4-46.3); Red Blood Count 3.52 M/uL (4.2-5.4); White Blood Count 6.11 K/uL (4.8-10.8)
[2020-10-22] MEDS: PANTOprazole 40 MG TAB PO SCH (07:57)
[2020-10-22] MEDS: GABAPENTIN 400 MG CAP PO SCH ×3 (07:57→21:44)
[2020-10-22] MEDS: FOLIC ACID 1 MG TAB PO SCH (07:58)
[2020-10-22] MEDS: METOPROLOL SUCC 25MG EXT REL TAB PO SCH (07:59)
[2020-10-22] MEDS: MULTIVITAMIN TAB PO SCH (08:00)
[2020-10-22] MEDS: allopurinoL 300 MG TAB PO SCH (08:00)
[2020-10-22] MEDS: FERROUS GLUCONATE 324 MG TAB PO SCH ×2 (08:01→17:00)
[2020-10-22] MEDS: OMEGA-3 (PURIFIED FISH OIL) 1 GM CAP PO SCH (08:01)
[2020-10-22 08:29] LABS: BUN Creatinine Ratio 37.4 (10-20); Creatinine Clr Calc Pharmacy 38.9 ml/min; Est GFR (African American) 48.9; Est GFR (Non-African American) 42.2; Potassium 4.1 mmol/L (3.5-5.1)
[2020-10-22] MEDS: FUROSEMIDE 40 MG TAB PO SCH ×2 (10:05→17:01)
[2020-10-22] MEDS ORDERED: cefTRIAXone SODIUM 2,000 MG in DEXTROSE 5% 50 ML IV SCH (14:00)
[2020-10-22] MEDS: traMADol HCL 50 MG TABLET PO PRN ×2 (14:42→22:11)
--- NOTE | 2020-10-22 17:32 | Hospitalist Progress Note ---
Date of Service October 22, 2020 Assessment & Plan (1) Sepsis: (2) Complicated UTI (urinary tract infection): This is a 69 yo M with a complex medical history including alpha 1 antitrypsin deficiency, COPD, tobacco use, PAD, CAD, cirrhosis, combined systolic and diastolic CHF, Charcot foot, aortic stenosis, CKD stage III, rheumatoid arthritis and recently diagnosed vaginal squamous cell carcinoma and bladder mass s/p resection at [facility] on 10/02/20 who presents with weakness, disorientation and shortness of breath and was found to have acute metabolic encephalopathy in setting of sepsis 2/2 complicated UTI and KADEN on CKD. Met sepsis criteria on admission with leukocytosis 14.9 and febrile with elevated procalcitonin UA on admission positive for nitrite, leukocytes and bacteria COVID 19 and influenza negative on admission CT abd/pevis showed a right ureteral stent is in appropriate position. No calcifications are seen along the course of the stent. Received IV cefepime and dapto on admission Urine cx and blood cx potive for gram negative bacilli - Klebbiella IV Cefepime was transition to Rocephin Repeat blood cx no growth so far Will transition to PO Keflex to complete 14 days course of abx Case discussed with urology at [place] about the stent removal on 10/25. Urology will reschedule her Continue follow up closely (3) Acute metabolic encephalopathy: Lethargy in setting of acute infection, hypoxia CT head showed no acute intracranial abnormality Continue gabapentin at 400mg TID for now Clinically improves (4) Acute respiratory failure with hypoxia: (5) COPD exacerbation: Hypoxia on admission CXR this morning showed cardiomegaly with pulmonary vascular congestion. Continue resp treatment Continue oxygen supplement (6) Acute kidney injury superimposed on chronic kidney disease: Cr elevated at 1.68 on admission (baseline low-mid 1s) Received IVF on admission Creatinine 1.3 today Lasix 20mg x1 given due to pulmonary vascular congestion seen on CXR and blood transfusion Monitor BMP outpatient (7) Elevated troponin: Mostly due to demand ischemia due to sepsi, anemia and KADEN Troponin elevated at 0.073 on admission, trending down at 0.059 EKG showed no acute ischemic changes On aspirin and metoprolol, but consider to hold aspirin due to low hemoglobin Will resume Statin Continue monitor in tele (8) Bladder mass: S/p transurethral resection of bladder tumor by Dr. Mehta with right ureteral stent placement on 10/02/20 She was schedule for removal of stent on 10/25/20, but cancelled due to recent infection, [place] urology will call pt to reschedule (9) Squamous cell carcinoma of vagina: Following with bath house attendant onc at [place] for vaginal squamous cell carcinoma and was started on topical imiquimod cream 2x/week with instruction to increase to 3x/week after 2 weeks (10) Anemia: Hgb dropped to 7.1, He received 2 units PRBC so far Hgb 10.2 today Continue monitor H/H Continue iron supplementation Stable (11) Cirrhosis of liver: Trace abdominopelvic ascites on CT abd/pelvis Continue monitor (12) Combined systolic and diastolic congestive heart failure: (13) Aortic stenosis: Echocardiogram from 10/06 not significantly changed from prior despite severe valvular disease and a slightly lower EF of 40 to 45% CXR this morning showed Cardiomegaly with pulmonary vascular congestion. Will give an additional lasix 20mg tonight after blood transfusion Continue lasix on discharge (14) Rheumatoid arthritis: Methotrexate held by inside wirer (15) PAD (peripheral artery disease): Will resume Statin Aspirin was on hold due to low hgb Will resume aspirin on discharge (16) Diabetes mellitus type 2, diet-controlled: Diet controlled DVT Ppx: SCDs for now in setting of anemia- Code status: CONDITIONAL CODE: Yes to CPR and shock, NO to mechanical ventilation Disposition Will discharge home today Admission and Anticipated Discharge Date Admission Date: October 19, 2020 Subjective Pt was seen and examined Lying in bed with no distress Pt said that she feels fine She is very anxious to go home today I spoke to urology at [place] since pt is scheduled to have stent removal on 12/26 Urology said that they will reschedule her procedure Denies any chest pain, palpitation, fever, dizziness and sob Physical Exam Physical Exam: General- No acute distress Head- atraumatic Eyes- PERRL, EOMI, ENT- oropharynx clear Neck- supple, no JVD Lungs- diminished breath sound Heart- regular rhythm; +systolic murmur Abdomen- normal bowel sounds, soft, nontender Extremities- no calf tenderness, +trace edema Neuro- alert, oriented x 3; PERRL, EOMI; no facial palsy; no dysarthria Skin- warm & dry Results & Data Results & Data ([facility]) Vital Signs (Past 12 Hours) Vital Signs Temp Pulse Resp BP BP Pulse Ox 10/22/20 16:00 36.7 C 76 18 101/54 L 94 10/22/20 11:32 37.3 C 71 20 119/66 92 10/22/20 07:54 37.0 C 88 20 115/70 90 (1) Anemia Anemia type: unspecified type Qualified Code(s): D64.9 - Anemia, unspecified
[2020-10-22] MEDS: ATORVASTATIN 40 MG TAB PO SCH (21:43)
[2020-10-22] MEDS: TAMSULOSIN HCL 0.4 MG CAP PO SCH (21:44)
[2020-10-22] MEDS: CITALOPRAM 20 MG TAB PO SCH (21:44)
[2020-10-23 05:39] LABS: Hematocrit (blood only) 34.3 % (37-47); Hemoglobin 10.2 g/dL (12.0-16.0); Mean Corpuscular Hemoglobin 25.8 pg (25-34); Mean Corpuscular Hgb Conc 29.7 g/dL (32-36); Mean Corpuscular Volume 86.8 fL (80-100); Mean Platelet Volume 9.8 fL (7.4-10.4); Platelet Count 186 K/uL (130-400); RDW Coefficient of Variation 20.1 % (11.5-14.5); RDW Standard Deviation 63.8 fL (36.4-46.3); Red Blood Count 3.95 M/uL (4.2-5.4); White Blood Count 5.31 K/uL (4.8-10.8)
[2020-10-23 06:17] LABS: Calcium 8.9 mg/dl (8.5-10.1); Creatinine Clr Calc Pharmacy 36.3 ml/min; Est GFR (African American) 45.1; Est GFR (Non-African American) 38.9; Potassium 3.8 mmol/L (3.5-5.1)
[2020-10-23] MEDS: MULTIVITAMIN TAB PO SCH (07:47)
[2020-10-23] MEDS: GABAPENTIN 400 MG CAP PO SCH (07:47)
[2020-10-23] MEDS: FOLIC ACID 1 MG TAB PO SCH (07:47)
[2020-10-23] MEDS: allopurinoL 300 MG TAB PO SCH (07:47)
[2020-10-23] MEDS: METOPROLOL SUCC 25MG EXT REL TAB PO SCH (07:47)
[2020-10-23] MEDS: OMEGA-3 (PURIFIED FISH OIL) 1 GM CAP PO SCH (07:48)
[2020-10-23] MEDS: FUROSEMIDE 40 MG TAB PO SCH (07:48)
[2020-10-23] MEDS: FERROUS GLUCONATE 324 MG TAB PO SCH (07:48)
[2020-10-23] MEDS: PANTOprazole 40 MG TAB PO SCH (07:48)
[2020-10-23] MEDS ORDERED: IMIQUIMOD PV SCH (09:00)
[2020-10-23] MEDS ORDERED: cephALEXin 500 MG CAP PO SCH (12:30)
--- NOTE | 2020-10-26 23:44 | Discharge Summary ---
Date of Service October 23, 2020 Admission HPI Per Admitting Provider This is a 69 yo M with a complex medical history including alpha 1 antitrypsin deficiency, COPD, tobacco use, PAD, CAD, cirrhosis, combined systolic and diastolic CHF, Charcot foot, aortic stenosis, CKD stage III, rheumatoid arthritis and recently diagnosed vaginal squamous cell carcinoma and bladder mass s/p resection at [facility] [address] on 10/02/20 who presents with weakness, disorientation and shortness of breath since yesterday. Patient was feeling fine yesterday and went to her rheumatology appointment with Dr. Fonseca but became weak and disoriented afterwards once she returned home. Had difficulty ambul ating on her own and needed help from her . No facial droop or focal weakness but lethargic with occasional slurred speech and difficulty concentrating. Also complaining of difficulty urinating with some incontinence. Brought to ED for further evaluation. Was recently admitted to [facility] 1 month ago for chest pain and anemia requiring 1u prbc transfusion prior to discharge. On 10/02/20, patient underwent transurethral resection of bladder tumor by Dr. Mehta with right ureteral stent placement. Plans for removal of stent on 10/25/20. Is also following with amr physician onc at [place] for vaginal squamous cell carcinoma and was started on topical imiquimod cream. In the ED, patient is lethargic but able to respond appropriately to questions. Is febrile at 38.3, with BP of 90/47. Initially hypoxic at 83% but improved to 99% on 2L NC. Leukocytosis of 14.19 with procalcitonin elevated at 1.17. Lactic acid within normal limits. VBG pH 7.43 and ammonia level normal. Hemoglobin slightly below baseline at 8.3 (baseline ~9-10). Troponin elevated at 0.073. COVID-19 test negative. UA abnormal. Endorses chills, headache, fatigue, generalized weakness, shortness of breath and inability to urinate as well as intermittent incontinence. Also with cough, but states that is her baseline. Denies any lightheadedness, confusion, chest pain, palpitations, nausea, vomiting, abdominal pain, dysuria, diarrhea or constipation. Reports smoking 3 cigarettes daily. Admission Exam Per Admitting Provider General Appearance: vitals as above, lethargic but communicating appropriately, appears chronically ill Head: normocephalic, atraumatic Eyes: normal inspection, PERRL, conjunctivae normal, anicteric sclerae ENT: external ear and nose normal, oropharynx normal Neck: normal visual inspection, trachea midline, no thyromegaly Respiratory: increased respiratory effort, NC O2 in place, wheezing R lung base, otherwise poor air movement. No accessory muscle use Cardiovascular: regular rate, rhythm, systolic murmur grade 3/6, normal peripheral pulses, no BLE edema. Vessels: no JVD Chest: normal inspection of chest Abdomen/GI: normal bowel sounds, soft, nontender, no hepatosplenomegaly : Monroe in place draining dark urine Extremities/Musculoskeletal: no cyanosis or clubbing, extremities motor strength 5/5. + L BKA Neurologic: PERRL, EOMI, accommodation nl, no face palsy, CN's II-XI intact bilaterally and moves all extremities Psychiatric: A+Ox3, euthymic affect Skin: no rashes, normal color, warm/dry Principal Diagnosis (1) Sepsis: (2) Complicated UTI (urinary tract infection): (3) Acute metabolic encephalopathy (4) Acute respiratory failure with hypoxia: (5) COPD exacerbation (6) Acute kidney injury superimposed on chronic kidney disease (7) Elevated troponin: (8) Bladder mass: (9) Squamous cell carcinoma of vagina: (10) Anemia: (11) Cirrhosis of liver: (12) Combined systolic and diastolic congestive heart failure: (13) Aortic stenosis (14) Rheumatoid arthritis: (15) PAD (peripheral artery disease): (16) Diabetes mellitus type 2, diet-controlled: Discharge Exam General- No acute distress Head- atraumatic Eyes- PERRL, EOMI, ENT- oropharynx clear Neck- supple, no JVD Lungs- diminished breath sound Heart- regular rhythm; +systolic murmur Abdomen- normal bowel sounds, soft, nontender Extremities- no calf tenderness, +trace edema Neuro- alert, oriented x 3; PERRL, EOMI; no facial palsy; no dysarthria Skin- warm & dry Discharge Data Allergies Allergy/AdvReac Type Severity Reaction Status Date / Time Penicillins Allergy Intermediate hives/upset Verified 10/19/20 15:39 stomach/diarrhea Iodinated Contrast Media AdvReac Intermediate severe Verified 10/19/20 15:39 [Iodinated Contrast- Oral vomiting and IV Dye] oxycodone [From Percocet] AdvReac Intermediate vomiting Verified 10/19/20 15:39 Consultations 10/19/20 15:42 ED Decision to Admit Stat 10/19/20 17:20 Consult Case Management - Discharge Planning Routine Ordered Studies 10/19/20 12:35 CT abd pelvis wo con Stat 10/19/20 17:25 CT head/brain wo con Routine XR chest 1V portable HISTORY: 69 years-old Female follow up/ hypoxia acute hypoxia COMPARISON: Chest radiograph of same day at 1:35 PM TECHNIQUE: Portable AP view of the chest FINDINGS: Cardiac silhouette is enlarged. Calcified plaque of the thoracic aorta. Pulmonary vascular congestion. No pneumothorax, large pleural effusion, overt pulmonary edema or airspace consolidation typical for pneumonia. Trace pleural effusions. Degenerative changes of the shoulders and spine. IMPRESSION: Cardiomegaly with pulmonary vascular congestion. ACT 112: Negative or not required by law. The above report was generated using voice recognition software. It may contain grammatical, syntax or spelling errors. Electronically signed by: Trever Salgado M.D. 10/20/2020 7:18 AM Dictated: 10/20/20 0717Transcribed: 10/20/[address] head/brain wo con CLINICAL HISTORY: lethargy, slurred speech POSSIBLE ACUTE STROKE COMPARISON STUDY: 12/10/2019 TECHNIQUE: Axial CT of the brain is performed from the vertex to the skull base. IV contrast was not administered for this examination. A dose lowering technique was utilized adhering to the principles of ALARA. CT DOSE: 1074.96 mGy.cm FINDINGS: No intra or extra-axial mass lesions are visualized. There is no CT evidence of acute cortical infarction. There is no evidence of midline shift. There is no acute hemorrhage. No calvarial fractures are visualized. There are patchy white matter hypodensities likely on a small vessel basis. There is no evidence of pathologic ventricular dilatation. There is no evidence of acute sinusitis The examination is motion degraded. IMPRESSION: 1. Motion degraded study 2. No acute intracranial findings ACT 112: Negative or not required by law. Electronically signed by: Tonny Mar M.D. 10/19/2020 6:20 PM Dictated: 10/19/20 1818Transcribed: 10/19/20 1820 XR chest 1V portable HISTORY: 69 years-old Female SEPSIS acute sepsis COMPARISON: Chest radiograph 12/10/2019 TECHNIQUE: Portable AP view of the chest FINDINGS: Cardiac silhouette is enlarged, unchanged. Calcified plaque of the thoracic aorta. There is no pneumothorax, pleural effusion, airspace consolidation or overt pulmonary edema. Degenerative changes of the shoulders and spine. Surgical clips project over the neck. IMPRESSION: Cardiomegaly without acute process. ACT 112: Negative or not required by law. The above report was generated using voice recognition software. It may contain grammatical, syntax or spelling errors. Electronically signed by: Trever Salgado M.D. 10/19/2020 1:57 PM Dictated: 10/19/20 1356Transcribed: 10/19/[address] SCAN OF THE ABDOMEN AND PELVIS WITHOUT IV CONTRAST CLINICAL HISTORY: Generalized abdominal pain. Nausea and headache. COMPARISON STUDY: Abdominal CT dated 04/05/2019. TECHNIQUE: CT scan of the abdomen and pelvis is performed from the lung bases to the proximal femora. Images are reviewed in the axial, sagittal, and coronal planes. IV contrast was not administered for this examination. A dose lowering technique was utilized adhering to the principles of ALARA. CT DOSE: 859.93 mGycm FINDINGS: Lung bases: The heart is enlarged and without pericardial effusion. The coronary arteries and mitral annulus are densely calcified. There is a small hiatal hernia. Diminished attenuation of the cardiac blood pool as compared to the myocardium suggests anemia. There is trace right pleural effusion and bibasilar atelectasis. No airspace consolidation is seen typical for pneumonia. Liver: The unenhanced liver is normal in size and heterogeneous in attenuation. Nodularity of the hepatic surface contour suggests early change of cirrhosis. There is no intrahepatic biliary ductal dilatation. Gallbladder: Surgically absent noting clips in the gallbladder fossa. Spleen: The spleen is top normal in size measuring 13 cm in length. Pancreas: The unenhanced pancreas is moderately atrophic and grossly unremarkable. Adrenal glands: Unremarkable. Kidneys: The unenhanced kidneys demonstrate mild cortical atrophy and are without hydronephrosis. A right ureteral stent is in appropriate position. No calcifications are seen along the course of the stent. There are 2 punctate nonobstructing right renal calculi. A 2 mm nonobstructing calculus is seen in the left kidney. Bilateral renal cysts measure up to 4.8 cm. Abdominal vasculature: There is advanced atherosclerotic calcification and mild ectasia of the abdominal aorta. A stent is partially visualized in the right f emoral artery. Bowel: There is mild colonic diverticulosis without CT evidence of acute diverticulitis. No bowel obstruction is seen. The appendix is well-visualized and normal. Peritoneum: No intraperitoneal free air is seen. There is trace abdominopelvic ascites. Postoperative change is seen in the retroperitoneum. Lymphadenopathy: None. Pelvic viscera: The bladder is decompressed around a Monroe catheter and not well evaluated. The uterus is surgically absent. No adnexal lesion is seen. Postoperative change is noted in the right groin. Skeletal structures: The skeletal structures are osteopenic. There is moderate to advanced lumbosacral spondylosis and mild scoliosis. A 2.2 cm peripherally calcified structures identified within the inferior aspect of the central spinal canal at the level of S3. This is unchanged from previous. No lytic or blastic lesions are seen. Calcific tendinopathy is seen at the origin of the hamstrings tendons. IMPRESSION: 1. Cardiomegaly and trace right pleural effusion. 2. There is trace abdominopelvic ascites. 3. Cirrhotic liver morphology. 4. A right ureteral stent is in appropriate position. No calcifications are seen along the course of the stent. 5. Tiny nonobstructing renal calculi are seen bilaterally. 6. Additional findings as above. ACT 112: Negative or not required by law. Electronically signed by: Jono Berg M.D. 10/19/2020 3:18 PM Dictated: 10/19/20 1507Transcribed: 10/19/20 1507 Hospital Course (1) Sepsis: (2) Complicated UTI (urinary tract infection): This is a 69 yo M with a complex medical history including alpha 1 antitrypsin deficiency, COPD, tobacco use, PAD, CAD, cirrhosis, combined systolic and diastolic CHF, Charcot foot, aortic stenosis, CKD stage III, rheumatoid arthritis and recently diagnosed vaginal squamous cell carcinoma and bladder mass s/p resection at [facility] [address] on 10/02/20 who presents with weakness, disorientation and shortness of breath and was found to have acute metabolic encephalopathy in setting of sepsis 2/2 complicated UTI and KADEN on CKD. Met sepsis criteria on admission with leukocytosis 14.9 and febrile with elevated procalcitonin UA on admission positive for nitrite, leukocytes and bacteria COVID 19 and influenza negative on admission CT abd/pevis showed a right ureteral stent is in appropriate position. No calcifications are seen along the course of the stent. Received IV cefepime and dapto on admission Urine cx and blood cx potive for gram negative bacilli - Klebbiella IV Cefepime was transition to Rocephin Repeat blood cx no growth so far Will transition to PO Keflex to complete 14 days course of abx Case discussed with urology at [place] about the stent removal on 10/25. Urology will reschedule her Continue follow up closely (3) Acute metabolic encephalopathy: Lethargy in setting of acute infection, hypoxia CT head showed no acute intracranial abnormality Continue gabapentin at 400mg TID for now Clinically improves (4) Acute respiratory failure with hypoxia: (5) COPD exacerbation: Hypoxia on admission CXR this morning showed cardiomegaly with pulmonary vascular congestion. Continue resp treatment Continue oxygen supplement (6) Acute kidney injury superimposed on chronic kidney disease: Cr elevated at 1.68 on admission (baseline low-mid 1s) Received IVF on admission Creatinine 1.3 today Lasix 20mg x1 given due to pulmonary vascular congestion seen on CXR and blood transfusion Monitor BMP outpatient (7) Elevated troponin: Mostly due to demand ischemia due to sepsi, anemia and KADEN Troponin elevated at 0.073 on admission, trending down at 0.059 EKG showed no acute ischemic changes On aspirin and metoprolol, but consider to hold aspirin due to low hemoglobin Will resume Statin Continue monitor in tele (8) Bladder mass: S/p transurethral resection of bladder tumor by Dr. Mehta with right ureteral stent placement on 10/02/20 She was schedule for removal of stent on 10/25/20, but cancelled due to recent infection, [place] urology will call pt to reschedule (9) Squamous cell carcinoma of vagina: Following with amr physician onc at [place] for vaginal squamous cell carcinoma and was started on topical imiquimod cream 2x/week with instruction to increase to 3x/week after 2 weeks (10) Anemia: Hgb dropped to 7.1, He received 2 units PRBC so far Hgb 10.2 today Continue monitor H/H Continue iron supplementation Stable (11) Cirrhosis of liver: Trace abdominopelvic ascites on CT abd/pelvis Continue monitor (12) Combined systolic and diastolic congestive heart failure: (13) Aortic stenosis: Echocardiogram from 10/06 not significantly changed from prior despite severe valvular disease and a slightly lower EF of 40 to 45% CXR this morning showed Cardiomegaly with pulmonary vascular congestion. Will give an additional lasix 20mg tonight after blood transfusion Continue lasix on discharge (14) Rheumatoid arthritis: Methotrexate held by electrostatic painter (15) PAD (peripheral artery disease): Will resume Statin Aspirin was on hold due to low hgb Will resume aspirin on discharge (16) Diabetes mellitus type 2, diet-controlled: Diet controlled DVT Ppx: SCDs for now in setting of anemia- Code status: CONDITIONAL CODE: Yes to CPR and shock, NO to mechanical ventilation Disposition Will discharge home today Total Time Total Time Spent Total Time Spent (In Minutes): 35 minutes Total Time Includes: Examination of the Patient, Discharge Planning, Medication Reconciliation, Communication With Other Providers and Other Discharge Plan Discharge Items Patient Disposition: Home - Self-Care Reason For Visit: SOB, UROSEPSIS, KADEN Discharge Diagnosis: (1) Sepsis: (2) Complicated UTI (urinary tract infection): (3) Acute metabolic encephalopathy (4) Acute respiratory failure with hypoxia: (5) COPD exacerbation (6) Acute kidney injury superimposed on chronic kidney disease (7) Elevated troponin: (8) Bladder mass: (9) Squamous cell carcinoma of vagina: (10) Anemia: (11) Cirrhosis of liver: (12) Combined systolic and diastolic congestive heart failure: (13) Aortic stenosis (14) Rheumatoid arthritis: (15) PAD (peripheral artery disease): (16) Diabetes mellitus type 2, diet-controlled: Activity: Resume your previous activity Non-emergency contact: Primary Care Provider and Urologist Call non-emergency contact if: you have any medication questions and your temperature is above 101 Follow-up/Referrals: Chadd Dudley MD [Primary Care Provider] - (Date & Time 10/27/2020 11:00 AM Provider Chadd Dudley MD Department Family [facility] ) Diet: Carb Consistent or DM2 and Heart Healthy Addtl Attending Provider Instructions: Follow up with your primary care provider Follow up with [facility] for the stent removal (Office recall you to reschedule for the appointment) Check CBC in 1 week to monitor hemoglobin Check BMP in 1 week to monitor renal function Complete the course of the antibiotic with Keflex Consider to decrease the gabapentin to 400mg TID if develop any drowsy and lethargy while taking the gabapentin 800mg Fall precaution Pending Studies at Discharge: No Stand-Alone Forms: My [facility], Smoking Cessation Medications and DC Order Prescriptions: New cephalexin 500 mg Capsule 500 mg PO BID 10 Days Qty: 20 RF: 0 Continued methotrexate (PF) 30 mg/0.6 mL auto-injector 15 mg SQ WEEKLY RF: 0 gabapentin 800 mg tablet 800 mg PO TID RF: 0 omega [id number] oil [Fish Oil] 1,000 mg (120 mg-180 mg) capsule 1 cap PO DAILY RF: 0 nitroglycerin 0.4 mg tablet, sublingual 0.4 mg sublingual DIRECTED PRN (Reason: Chest Pain) RF: 0 allopurinol 300 mg Tablet 300 mg PO DAILY RF: 0 atorvastatin 80 mg Tablet 80 mg PO HS RF: 0 omeprazole 40 mg Capsule,Delayed Release(Dr/Ec) 40 mg PO DAILY RF: 0 metoprolol succinate 25 mg Tablet Extended Release 24 Hr 12.5 mg PO DAILY RF: 0 ferrous gluconate 324 mg (38 mg iron) Tablet 324 mg PO TID RF: 0 multivitamin Tablet 1 tab PO DAILY RF: 0 folic acid 1 mg Tablet 1 mg PO DAILY RF: 0 tramadol 50 mg Tablet 50 mg PO BID PRN (Reason: Pain) RF: 0 furosemide [Lasix] 40 mg Tablet 40 mg PO BID RF: 0 spironolactone [Aldactone] 100 mg Tablet 100 mg PO QAM RF: 0 citalopram 40 mg tablet 40 mg PO HS RF: 0 aspirin [Aspirin Low Dose] 81 mg Tablet,Delayed Release (Dr/Ec) 81 mg PO DAILY RF: 0 tamsulosin 0.4 mg capsule 0.4 mg PO HS RF: 0 docusate sodium 100 mg capsule 100 mg PO BID PRN (Reason: Constipation) RF: 0 imiquimod 5 % cream in packet 1 applic TOPICAL UD RF: 0 Discharge Orders: Discharge Order (Routine); Ordered 10/23/20 Ordered By: Carlos Akbar Admission Data Admit Date/Time: 10/19/20 15:57 Attending Provider: Carlos Akbar Admit Provider: Joseph Wiley Primary Care Provider: Chadd Dudley Other Providers: Joseph Wiley Other Interventions: Discharge Summary Assessment (RN) Last Done: 10/23/20 13:06
== END 2020-10-23 13:48 | disposition home or self-care (01) | DRG 871 ==
LOC: ED 12:10 → 2S 15:57 → SUATTDRO 15:57 → 2S 17:02

== ENCOUNTER 2021-03-07 04:16 | Inpatient (IN) ==
[2021-03-07] MEDS ORDERED: dexAMETHasone**PF** 10 MG/ML VIAL IV ONE (04:29)
--- NOTE | 2021-03-07 04:35 | Emergency Department Note ---
Impression & Plan Sepsis, Hypoxia ED Provider Note Name: MEREDITH MARTINEZ Age: 70 Sex: F Arrives Via: Ambulance Informant: Patient (poor historian) , EMS ED Provider: Collins Davila MD Chief Complaint: Shortness of breath Impression: Sepsis Hypoxia Medical Decision Makin yr old female with extensive PMH including cardiac disease and CHF arrives for worsening shortness of breath. Hypoxic and confused on arrival with Tylenol infusing by EMS. Clearly dehydrated by exam with poor lung sounds. Story and lung xray quite concerning for COVID however initial covid testing negative, but will keep in isolation for now. Labs with elevated trop likely secondary ischemia as patient denies chest pain and EKG without clear new ischemia. Abdomen soft without peritonitis. She looked much improved with IV fluids and tylenol. After improvement no evidence of meningitis. Of note, initially I did give decadron given her history and high risk covid. Hospitalist consutled given multiple abnormalities. Unlikely PE given multiple other findings. I did opt to give dose of Levaquin for broad coverage and will defer further abx to hospitalist at this time. With no lactic acidosis nor hypotension I do not feel that 30ml/kg IV fluid resus would be appropriate in this brittle chf patient. Prior Medical Record and Triage/Nursing Notes reviewed by Me Additional history obtained from chart/ems Differentials:Viral syndrome, otitis, pharyngitis, pneumonia, influenza, meningitis, urinary tract infection, sepsis, bacteremia, as well as other pathologies. Vital Signs: reviewed and remarkable for hypoxia, fevr Interventions: saline lock, nss bolus, decadron iv, levaquin iv Labs:Reviewed and remarkable for elevated troponon Imaging:X ray results are stated below per my interpretation: Chest: 1 view: Bilaterl infiltrates vs congestive failure EKG:Per My Interpretation: Indication SHOB: Sinus with 1st av block and multiple PVCs at 100 bpm, qtc 490. No Ischemia. Compared to EKG 10/20/20 rate has increased but overall morphology similar. Cardiac/Tele Monitoring: Cardiac Monitoring: An Order was placed for continuous cardiac monitoring. The monitor shows a rate of 100 with a normal sinus rhythm. Consults:Dr Wanda Padilla Hospitalist Plan: Disposition:Hospitalization. Condition: Fair History of Present Illness:70 yr old female arrives for evaluation of fever. Patient with rapidly worsening illness over the last 12 hours. Associated with cough, shortness of breath, fevers, chills, loss taste/smell, nausea, vomiting, body aches and fatigue. Per EMS has been confused this evening as well. IV Tylenol prior to arrival with improvement. Apparently was having some chest pain earlier as well. She denies current chest pain, nausea, headache, rashes, syncope, leg swelling, nor other symptoms. Worse with exertion, better with rest. Received 1st covid vaccine last week. ROS: See above HPI for pertinent positives & negatives. A total of 10 systems reviewed and were otherwise negative. Past Medical History:See Below Past Surgical History:See Below Family History:See Below Social History:See Below Home Medications:See Below Allergies:See Below Vitals:Blood Pressure: 116/70, Pulse 106, RR 20, T 39.4C, O2 82% on RA Physical Exam: GENERAL: Patient is ill appearing and in moderate distress. Warm to touch EYES: No scleral icterus, unremarkable pupils. ENT: Mucous membranes moist, no nasal congestion. NECK: No masses appreciated, nomeningismus, trachea is midline. RESPIRATORY: Diffuse crackles, dyspneic, tachypnea CARDIOVASCULAR: Tachy.No murmurs, rubs, gallops appreciated. GASTROINTESTINAL: Abdomen soft, non-tender, no peritonitis.Bowel sounds positive.No masses appreciated. BACK: No midline tenderness, no CVA tenderness EXTREMITIES: Normal motion all extremities, no cyanosis, no edema. left bki NEUROLOGIC: Somnolent but awakens to answer questions, no acute motor or sensory deficits, no focal weakness, cranial nerves grossly intact. SKIN: No rash, no jaundice, no diaphoresis. PSYCH: Appropriate GCS: 14 ED Course: Times/Reassessments: Vastly improved with fluids and tylenol. agreeable to hospitalization Collins Davila MD Past Med/Surg History Medical History Acid reflux Aortic stenosis Aortic valve regurgitation Bladder mass s/p resection 10/02/20 at [facility] by Dr. Everett CAD (coronary artery disease) 2004 -PCI to unknown vessel Charcot foot due to diabetes mellitus Chronic combined systolic and diastolic CHF (congestive heart failure) Cirrhosis of liver "UNDETERMINED ORIGIN" CKD (chronic kidney disease), stage III pt denies having any problems with kidneys. Combined systolic and diastolic congestive heart failure COPD (chronic obstructive pulmonary disease) Diabetes mellitus type 2, diet-controlled Diabetic peripheral neuropathy Gout History of alcohol abuse History of anxiety History of depression History of endometriosis "STAGE 1 GRADE 1" History of sleep apnea HX CPAP HTN (hypertension) Hypercholesteremia SARANYA (iron deficiency anemia) Impaired fasting glucose A1C 6/1% 05/2019 Ischemic cardiomyopathy EF 40-44% Mitral regurgitation PAD (peripheral artery disease) Rheumatoid arthritis Snores Squamous cell carcinoma of vagina Valvular heart disease Surgical History History of anesthesia reaction PT REPORTS URINARY RETENTION POST OP, USUALLY REQUIRING STRAIGHT CATH History of bilateral carotid endarterectomy History of cardiac cath 2004 ..TOLD HAD 2 ID'S - STENT X1 History of cholecystectomy History of colonoscopy History of hysterectomy supracervical History of left below knee amputation History of lumbar discectomy S/P vascular surgery 11/02/2020-right common femoral endarterectomy, right femoral and posterior tibial bypass Family History Father Family history of diabetes mellitus Family history of COPD (chronic obstructive pulmonary disease) Sister Breast cancer Social History Smoking Status: Former smoker Tobacco Type: Cigarettes Years Smoked: 54; Cigarettes Per Day: 3; Second Hand Exposure: No; Hx Alcohol Use: No Hx Substance Use: No Preferred Language: Indonesian Communication Ability: Effective Visual Impairment: Limited Hearing Ability: Normal Upper Cutter Machine Required: No Beliefs That Will Affect Care: None marital status: Current Living Situation: Spouse current occupational status: disabled Other Information That Helps Us Care for You: No Feels Safe at Home: Yes Safety Concerns: Feels Safe At This Time Assistive Devices: Denture - Upper, Denture - Lower, Glasses and Walker Allergies Allergies Allergy/AdvReac Type Severity Reaction Status Date / Time Penicillins Allergy Intermediate hives/upset Verified 03/07/21 07:18 stomach/diarrhea Iodinated Contrast Media AdvReac Intermediate severe Verified 03/07/21 07:18 [Iodinated Contrast- Oral vomiting and IV Dye] oxycodone [From Percocet] AdvReac Intermediate vomiting Verified 03/07/21 07:18 Home Meds Home Medications Medication Instructions Recorded Confirmed gabapentin 800 mg tablet 800 mg PO TID tab 07/22/18 03/07/21 omega 4-fug-hik-fish oil 1,000 mg 1 cap PO QAM cap 07/22/18 03/07/21 (120 mg-180 mg) capsule atorvastatin 80 mg PO HS 03/01/19 03/07/21 ferrous gluconate 324 mg PO BID 03/01/19 03/07/21 folic acid 1 mg PO QAM 03/01/19 03/07/21 metoprolol succinate 12.5 mg PO DAILY@1530 03/01/19 03/07/21 multivitamin 1 tab PO QAM 03/01/19 03/07/21 omeprazole 40 mg PO DAILYBB 03/01/19 03/07/21 nitroglycerin 0.4 mg SUBLINGUAL DIRECTED PRN 04/05/19 03/07/21 tramadol 50 mg PO BID PRN 07/15/19 03/07/21 allopurinol 300 mg PO QAM 01/03/20 03/07/21 furosemide [Lasix] 40 mg PO BID 07/21/20 03/07/21 spironolactone [Aldactone] 100 mg PO BID 07/21/20 03/07/21 aspirin [Aspirin Low Dose] 81 mg PO QAM 09/19/20 03/07/21 citalopram 40 mg PO HS 09/19/20 03/07/21 docusate sodium 100 mg PO BID 10/19/20 03/07/21 imiquimod [Aldara] 1 applic TOPICAL UD 10/19/20 03/07/21 albuterol 2 puff INHALATION QID 03/07/21 03/07/21 ipratropium-albuterol 3 ml INHALATION QID PRN 03/07/21 03/07/21 leflunomide 10 mg PO QAM 03/07/21 03/07/21 magnesium oxide 400 mg PO BID 03/07/21 03/07/21 oxycodone 5 mg PO Q6H PRN 03/07/21 03/07/21 prednisone 2.5 mg PO DAILY 03/07/21 03/07/21 Previous Rx's Medication Instructions Recorded solifenacin 5 mg tablet 5 mg PO DAILY #30 tab 03/05/21 Results & Data (ED) Vital Signs Vital Signs - 24 hr 03/07/21 04:20 03/07/21 04:23 03/07/21 04:25 Temperature 39.4 C H Temperature Source Oral Pulse Rate 98 H 95 H Pulse Rate [Apical] Pulse Rate from SpO2 Sensor Respiratory Rate 22 21 Respiratory Effort / Characteristics Spontaneous Short of Breath Respiratory Depth Normal Respiratory Pattern Regular Blood Pressure 112/56 L 114/66 Blood Pressure [Left Arm] Blood Pressure Mean 74 82 Blood Pressure Mean [Left Arm] Pulse Oximetry 88 L Oxygen Delivery Method Room Air Nasal Cannula Oxygen Flow Rate 3 Sepsis Recent Fever Within 48 Hours Yes Sepsis New/Unexplained Change in Mental Status Yes Sepsis Action Taken by Nursing Physician Notified 03/07/21 04:27 03/07/21 04:30 03/07/21 05:00 Temperature Temperature Source Pulse Rate 100 H 99 H 99 H Pulse Rate [Apical] Pulse Rate from SpO2 Sensor 98 H 101 H Respiratory Rate 22 26 H 15 Respiratory Effort / Characteristics Respiratory Depth Respiratory Pattern Blood Pressure 112/56 L Blood Pressure [Left Arm] Blood Pressure Mean 74 Blood Pressure Mean [Left Arm] Pulse Oximetry 94 95 Oxygen Delivery Method Nasal Cannula Oxygen Flow Rate 3 Sepsis Recent Fever Within 48 Hours Sepsis New/Unexplained Change in Mental Status Sepsis Action Taken by Nursing 03/07/21 05:10 03/07/21 05:30 03/07/21 05:31 Temperature Temperature Source Pulse Rate 96 H Pulse Rate [Apical] Pulse Rate from SpO2 Sensor 96 H Respiratory Rate 21 20 22 Respiratory Effort / Characteristics Respiratory Depth Respiratory Pattern Blood Pressure 98/56 L 71/45 L 101/52 L Blood Pressure [Left Arm] Blood Pressure Mean 70 53 68 Blood Pressure Mean [Left Arm] Pulse Oximetry 95 Oxygen Delivery Method Oxygen Flow Rate Sepsis Recent Fever Within 48 Hours Sepsis New/Unexplained Change in Mental Status Sepsis Action Taken by Nursing 03/07/21 05:43 03/07/21 06:27 Temperature 39.0 C H 38.3 C H Temperature Source Oral Oral Pulse Rate Pulse Rate [Apical] 88 78 Pulse Rate from SpO2 Sensor Respiratory Rate 20 18 Respiratory Effort / Characteristics Non-Labored Non-Labored Respiratory Depth Normal Normal Respiratory Pattern Blood Pressure Blood Pressure [Left Arm] 101/52 L Blood Pressure Mean Blood Pressure Mean [Left Arm] 68 Pulse Oximetry 94 94 Oxygen Delivery Method Room Air Nasal Cannula Oxygen Flow Rate 3 Sepsis Recent Fever Within 48 Hours Sepsis New/Unexplained Change in Mental Status Sepsis Action Taken by Nursing Laboratory Data Result diagrams: 03/07/21 Unknown 03/07/21 Unknown Lab Results 03/07/21 03/07/21 03/07/21 Range/Units 04:35 04:35 04:47 VBG pH (7.36-7.41) VBG pCO2 (38-50) mmHg VBG pO2 mmHg VBG HCO3 mmol/L VBG O2 Saturation % VBG Base Excess mEq/L Barometric Pressure mm/Hg Lactate 2.0 (0.4-2.0) mmol/L COVID- Eval Order [facility]FluRsv at [facility] SARS-CoV-2 (PCR) NEGATIVE (Negative) Influenza Type A (PCR) Negative (Neg) Influenza Type B (PCR) Negative (Neg) RSV (RT-PCR) Negative (Neg) 03/07/21 Range/Units 05:09 VBG pH 7.46 H (7.36-7.41) VBG pCO2 41 (38-50) mmHg VBG pO2 39 mmHg VBG HCO3 28 mmol/L VBG O2 Saturation 77.1 % VBG Base Excess 4.0 mEq/L Barometric Pressure 724.9 mm/Hg Lactate (0.4-2.0) mmol/L COVID- Eval Order SARS-CoV-2 (PCR) (Negative) Influenza Type A (PCR) (Neg) Influenza Type B (PCR) (Neg) RSV (RT-PCR) (Neg) Administered Medications Aspirin (Aspirin 81 Mg Ectab) 81 mg PO DAILY [facility] Stop: 04/06/21 08:59 Last Admin: 03/07/21 10:25 Dose: Not Given Documented by: [id number] Gabapentin (Gabapentin 800 Mg Tab) 800 mg PO TID RAFY Stop: 04/06/21 08:59 Last Admin: 03/07/21 14:45 Dose: 800 mg Documented by: [id number] Admin: 03/07/21 10:11 Dose: 800 mg Documented by: [id number] Ceftriaxone Sodium 1,000 mg/ (Dextrose) 50 mls @ 100 mls/hr IV Q24H [facility]; Protocol Stop: 03/14/21 08:59 Last Infusion: 03/07/21 10:48 Dose: 0 mls/hr Documented by: [id number] Admin: 03/07/21 10:10 Dose: 100 mls/hr Documented by: [id number] Doxycycline Hyclate 100 mg/ (Dextrose) 110 mls @ 50 mls/hr IV Q12H [facility] Stop: 03/14/21 08:59 Last Infusion: 03/07/21 13:28 Dose: 0 mls/hr Documented by: [id number] Admin: 03/07/21 10:11 Dose: 50 mls/hr Documented by: [id number] Insulin Aspart (Insulin Aspart 100 Units/Ml 3 Ml Pen) 0 units SC ACHS [facility]Y Stop: 04/06/21 08:21 Last Admin: 03/07/21 12:37 Dose: Not Given Documented by: [id number] Admin: 03/07/21 10:12 Dose: Not Given Documented by: [id number] Metoprolol Succinate (Metoprolol Succ 25mg Ext Rel Tab) 12.5 mg PO DAILY [facility] Stop: 04/06/21 08:59 Last Admin: 03/07/21 10:12 Dose: 12.5 mg Documented by: [id number] Miscellaneous (Vesicare ~ Order Awaiting Action) 1 ea N/A QS [facility] Stop: 04/06/21 15:59 Last Admin: 03/07/21 17:06 Dose: Not Given Documented by: [id number] Miscellaneous (Imiquimod [Aldara] 5 % Cream ~ Order Awaiting Action) 1 ea N/A QS [facility] Stop: 04/06/21 15:59 Last Admin: 03/07/21 17:07 Dose: Not Given Documented by: [id number] Discontinued Medications Albuterol (Albuterol Hfa 8 Gm Inhaler) 2 puffs INH QIDR [facility] Stop: 04/06/21 14:59 Last Admin: 03/07/21 16:20 Dose: Not Given Documented by: [id number] Dexamethasone Sodium Phosphate (DexamethasonePf 10 Mg/Ml Vial) 10 mg IV NOW ONE Stop: 03/07/21 04:30 Last Admin: 03/07/21 05:11 Dose: 10 mg Documented by: [id number] Enoxaparin Sodium (Enoxaparin Inj 40 Mg/0.4 Ml Syr) 40 mg SQ Q24H [facility] Stop: 04/06/21 08:21 Last Admin: 03/07/21 09:25 Dose: Not Given Documented by: [id number] Sodium Chloride (Nss 1000ml) 500 mls @ 999 mls/hr IV .Q31M ONE Stop: 03/07/21 05:25 Last Infusion: 03/07/21 05:43 Dose: 0 mls/hr Documented by: [id number] Admin: 03/07/21 05:11 Dose: 999 mls/hr Documented by: [id number] Levofloxacin/Dextrose (Levaquin/D5w) 750 mg in 150 mls @ 100 mls/hr IV NOW STA Stop: 03/07/21 07:35 Last Infusion: 03/07/21 07:40 Dose: 0 mls/hr Documented by: [id number] Admin: 03/07/21 06:10 Dose: 100 mls/hr Documented by: [id number] Imaging Data Radiologist's Impression: Chest X-Ray 03/07/21 04:30 SINGLE VIEW CHEST CLINICAL HISTORY: Dyspnea and fever. Covid. FINDINGS: An AP, portable, upright chest radiograph is compared to study dated 10/19/2020. The examination is degraded by portable technique, apical lordotic positioning, and patient rotation. The heart is mildly enlarged noting atherosclerotic calcification of the thoracic aorta. Subtle patchy airspace consolidation is seen throughout both lung. No large pleural effusion or pneum othorax is seen. The skeletal structures are osteopenic. The bony thorax is grossly intact. A right shoulder arthroplasty is in place. Degenerative change and scoliosis are noted in the thoracic spine. IMPRESSION: Subtle patchy airspace consolidation is seen throughout both lungs and consistent with the reported history of a viral pneumonia. Radiographic follow-up to resolution is recommended. ACT 112: Negative or not required by law. Electronically signed by: Jono Berg M.D. 03/07/2021 7:54 AM Discharge Plan Visit Data Chief Complaint: Cardiac Assessment Stated Complaint: CP/SOB ED Provider: Collins Davila Discharge Problem: Sepsis, Hypoxia Patient Disposition: Admitted As Inpatient Discharge Instructions Interventions: ED Discharge Assessment Last Done: 03/07/21 08:07 Discharge Problem: Sepsis Qualifiers: Sepsis type: sepsis due to unspecified organism Sepsis acute organ dysfunction status: with acute organ dysfunction Severe sepsis acute organ dysfunction type: encephalopathy Severe sepsis shock status: without septic shock Qualified Code(s): A41.9 - Sepsis, unspecified organism
[2021-03-07 04:41] LABS: Hematocrit (blood only) 35.8 % (37-47); Hemoglobin 12.5 g/dL (12.0-16.0); Immature Granulocytes # (auto) 0.01 K/uL (0.00-0.02); Immature Granulocytes % (auto) 0.1 %; Lymphocytes # (auto) 0.41 K/uL (1.2-3.4); Lymphocytes % (auto) 5.6 %; Mean Corpuscular Hemoglobin 29.8 pg (25-34); Mean Corpuscular Hgb Conc 34.9 g/dL (32-36); Mean Corpuscular Volume 85.2 fL (80-100); Mean Platelet Volume 9.9 fL (7.4-10.4); Monocytes # (auto) 0.26 K/uL (0.11-0.59); Monocytes % (auto) 3.5 %; Neutrophils # (auto) 6.67 K/uL (1.4-6.5); Neutrophils % (auto) 90.8 %; Platelet Count 145 K/uL (130-400); RDW Coefficient of Variation 19.1 % (11.5-14.5); RDW Standard Deviation 60.2 fL (36.4-46.3); White Blood Count 7.35 K/uL (4.8-10.8)
[2021-03-07 04:51] LABS: Alanine Aminotransferase 29 U/L (12-78); Albumin Level 2.7 gm/dl (3.4-5.0); Aspartate Aminotransferase 19 U/L (15-37); BUN Creatinine Ratio 30.5 (10-20); Bilirubin Direct 0.3 mg/dl (0-0.2); Blood Urea Nitrogen 55 mg/dl (7-18); Calcium 9.1 mg/dl (8.5-10.1); Carbon Dioxide 29 mmol/L (21-32); Chloride 98 mmol/L (98-107); Est GFR (African American) 32.3; Est GFR (Non-African American) 27.8; Glucose 143 mg/dl (70-99); Lipase 95 U/L (73-393); Magnesium 1.9 mg/dl (1.8-2.4); Potassium 4.1 mmol/L (3.5-5.1); Sodium 134 mmol/L (136-145)
[2021-03-07] MEDS ORDERED: SODIUM CHLORIDE 0.9% 1000ML 500 ML IV ONE (04:55)
[2021-03-07 05:07] LABS: Alkaline Phosphatase 178 U/L (45-117); Bilirubin,Total 0.6 mg/dl (0.2-1); NT Pro B Type Natriuretic Pept 24256 pg/ml (0-900); Troponin I 0.504 ng/ml (0-0.045)
[2021-03-07 05:19] LABS: Oxygen Saturation VBG 77.1 %; pH VBG 7.46 (7.36-7.41)
[2021-03-07 05:55] LABS: Influenza A virus by PCR Negative (Neg); Influenza B virus by PCR Negative (Neg); RSV by PCR Negative (Neg); SARS CoV2 RNA(COVID-19) InHosp NEGATIVE (Negative)
[2021-03-07] MEDS ORDERED: levoFLOXacin/D5W 750 MG/150 ML BAG IV STA (06:06)
--- NOTE | 2021-03-07 07:55 | XRay Report ---
SINGLE VIEW CHEST CLINICAL HISTORY: Dyspnea and fever. Covid. FINDINGS: An AP, portable, upright chest radiograph is compared to study dated 10/19/2020. The examina tion is degraded by portable technique, apical lordotic positioning, and patient rotation. The heart is mildly enlarged noting atherosclerotic calcification of the thoracic aorta. Subtle patchy airspace consolidation is seen throughout both lung. No large pleural effusion or pneumothorax is seen. The s keletal structures are osteopenic. The bony thorax is grossly intact. A right shoulder arthroplasty i s in place. Degenerative change and scoliosis are noted in the thoracic spine. IMPRESSION: Subtle patchy airspace consolidation is seen throughout both lungs and consistent with th e reported history of a viral pneumonia. Radiographic follow-up to resolution is recommended. ACT 112: Negative or not required by law. Electronically signed by: Jono Berg M.D. 03/07/2021 7:54 AM
[2021-03-07] MEDS ORDERED: POLYETHYLENE (MIRALAX) 17 GM PACK PO PRN (08:22)
[2021-03-07] MEDS ORDERED: NITROGLYCERIN SL 0.4 MG/TAB TAB SL PRN ×2 (08:22→09:01)
[2021-03-07] MEDS ORDERED: IPRATROPIUM BROMIDE NEB SOLN 0.02% 2.5 ML VIAL INH PRN (08:22)
[2021-03-07] MEDS ORDERED: XOPENEX/ATROVENT 1.25mg/0.5MG NEB COMBO NEB PRN (08:22)
[2021-03-07] MEDS ORDERED: ACETAMINOPHEN 325 MG TAB PO PRN (08:22)
[2021-03-07] MEDS ORDERED: HEPARIN SODIUM/DEXTROSE 25,000 UNITS/500 ML BAG IV SCH (08:22)
[2021-03-07] MEDS ORDERED: LEVALBUTEROL 1.25MG/0.5ML NEB INH PRN (08:22)
[2021-03-07] MEDS ORDERED: ENOXAPARIN INJ 40 MG/0.4 ML SYR SQ SCH (08:22)
[2021-03-07] MEDS ORDERED: GLUCAGON FOR INJ 1 MG VIAL IM PRN (08:30)
[2021-03-07] MEDS ORDERED: CARBOHYDRATES FOR HYPOGLYCEMIA PO PRN (08:30)
[2021-03-07] MEDS ORDERED: GLUCOSE 10 TABS/TUBE PO PRN (08:30)
[2021-03-07] MEDS ORDERED: DEXTROSE 50% 50 ML SYRINGE IV PRN (08:30)
[2021-03-07] MEDS ORDERED: GLUCOSE 40% GEL 15 GM TUBE PO PRN (08:30)
--- NOTE | 2021-03-07 08:46 | Cardiology Consultation ---
Date of Consultation March 07, 2021 Assessment & Plan (1) Bladder cancer: (2) Complicated UTI (urinary tract infection): (3) Acute kidney injury superimposed on chronic kidney disease: (4) Acute dehydration: (5) Demand ischemia: (6) Squamous cell carcinoma of vagina: (7) Elevated troponin: (8) CKD (chronic kidney disease), stage III: (9) COPD (chronic obstructive pulmonary disease): (10) PAD (peripheral artery disease): (11) Cirrhosis of liver: (12) Diabetes mellitus type 2, diet-controlled: (13) Aortic stenosis: (14) S/P vascular surgery: (15) CAD (coronary artery disease): Given the patient's presenting symptoms I believe she is likely suffering from another urinary tract infection status post cystoscopy. Her urinalysis is not back yet but I would recommend initiation of antibiotic coverage likely based on her response to treatment in the past. I do not believe her chest discomfort or minimal troponin elevation represents active ischemia. I have no doubt she is suffering from demand ischemia due to likely infection and severe aortic stenosis. No need for heparin from a cardiac standpoint. Her renal function is impaired from baseline I believe this is likely contributing to her troponin elevation as well. She is likely volume overloaded as well due to recent cut back of her diuretics and 10 pound weight gain. Would likely hold off on aggressive diuresis until renal function and urinary tract infection has been addressed. Continue outpatient doses of metoprolol, atorvastatin, spironolactone, p.o. Lasix and aspirin. Should she fail to respond initially to antibiotic treatment would consider evaluation by her primary urologist as well. Would be reasonable to repeat an echocardiogram during her hospital stay but this would not change her initial management at this time. History of Present Illness Reason for Consultation: elevated troponin Requesting Physician: Dr. Muñoz Attending Physician: Melissa Gutierrez, History of Present Illness Mrs. Hinkle is a very pleasant yet very medically complex 70-year-old woman who presents to [facility] on 03/07/2021 with complaints of urinary incontinence along with fevers and chills. She underwent cystoscopy with her urologist last week as routine follow-up for her history of bladder cancer. She states then a few days after her cystoscopy she was incontinent of urine at night. This then happened the next several nights in a row. Her was quite upset by this and caused a great deal of stress which then caused her to have some chest discomfort. Early in the a.m. of the she awoke again incontinent of urine but now with myalgias and rigors. She became concerned and presented to the emergency department. Again, her chest discomfort occurred in the setting of severe stress which is previously been a trigger for her chest pain in the past. She also notes an approximate 10 pound weight gain since her diuretics were previously decreased. Past medical history: 1.Coronary artery disease status post PCI to unknown vessels. 2.Mild ischemic cardiomyopathy, EF40-45%. 3.Peripheral arterial disease with left BKA and bilateral carotid endarterectomies. 4.Ongoing tobacco abuse. 5.Dyslipidemia. 6.Hypertension. 7.Likely COPD. 8.Cirrhosiswith recurrent ascites requiring paracentesis. 9. Moderateto severeaortic stenosis and mild aortic regurgitation 10.At least mild mitral stenosis with moderate to severe mitral regurgitation 11. Bladder carcinoma Allergies Allergy/AdvReac Type Severity Reaction Status Date / Time Penicillins Allergy Intermediate hives/upset Verified 03/07/21 07:18 stomach/diarrhea Iodinated Contrast Media AdvReac Intermediate severe Verified 03/07/21 07:18 [Iodinated Contrast- Oral vomiting and IV Dye] oxycodone [From Percocet] AdvReac Intermediate vomiting Verified 03/07/21 07:18 Home Medications Medication Instructions Recorded Confirmed Type gabapentin 800 mg tablet 800 mg PO TID tab 07/22/18 03/07/21 History omega 9-qpi-[id number]-fish oil 1,000 mg 1 cap PO QAM cap 07/22/18 03/07/21 History (120 mg-180 mg) capsule atorvastatin 80 mg PO HS 03/01/19 03/07/21 History ferrous gluconate 324 mg PO BID 03/01/19 03/07/21 History folic acid 1 mg PO QAM 03/01/19 03/07/21 History metoprolol succinate 12.5 mg PO DAILY@1530 03/01/19 03/07/21 History multivitamin 1 tab PO QAM 03/01/19 03/07/21 History omeprazole 40 mg PO DAILYBB 03/01/19 03/07/21 History nitroglycerin 0.4 mg SUBLINGUAL DIRECTED PRN 04/05/19 03/07/21 History tramadol 50 mg PO BID PRN 07/15/19 03/07/21 History allopurinol 300 mg PO QAM 01/03/20 03/07/21 History furosemide [Lasix] 40 mg PO BID 07/21/20 03/07/21 History spironolactone [Aldactone] 100 mg PO BID 07/21/20 03/07/21 History aspirin [Aspirin Low Dose] 81 mg PO QAM 09/19/20 03/07/21 History citalopram 40 mg PO HS 09/19/20 03/07/21 History docusate sodium 100 mg PO BID 10/19/20 03/07/21 History imiquimod [Aldara] 1 applic TOPICAL UD 10/19/20 03/07/21 History solifenacin 5 mg tablet 5 mg PO DAILY #30 tab 03/05/21 03/07/21 Rx albuterol 2 puff INHALATION QID 03/07/21 03/07/21 History ipratropium-albuterol 3 ml INHALATION QID PRN 03/07/21 03/07/21 History leflunomide 10 mg PO QAM 03/07/21 03/07/21 History magnesium oxide 400 mg PO BID 03/07/21 03/07/21 History oxycodone 5 mg PO Q6H PRN 03/07/21 03/07/21 History prednisone 2.5 mg PO DAILY 03/07/21 03/07/21 History Patient History Medical History Acid reflux Aortic stenosis Aortic valve regurgitation Bladder mass s/p resection 10/02/[facility] at [facility] by Dr. Everett CAD (coronary artery disease) 2004 -PCI to unknown vessel Charcot foot due to diabetes mellitus Chronic combined systolic and diastolic CHF (congestive heart failure) Cirrhosis of liver "UNDETERMINED ORIGIN" CKD (chronic kidney disease), stage III pt denies having any problems with kidneys. Combined systolic and diastolic congestive heart failure COPD (chronic obstructive pulmonary disease) Diabetes mellitus type 2, diet-controlled Diabetic peripheral neuropathy Gout History of alcohol abuse History of anxiety History of depression History of endometriosis "STAGE 1 GRADE 1" History of sleep apnea HX CPAP HTN (hypertension) Hypercholesteremia SARANYA (iron deficiency anemia) Impaired fasting glucose A1C 6/1% 05/2019 Ischemic cardiomyopathy EF 40-44% Mitral regurgitation PAD (peripheral artery disease) Rheumatoid arthritis Snores Squamous cell carcinoma of vagina Valvular heart disease Surgical History History of anesthesia reaction PT REPORTS URINARY RETENTION POST OP, USUALLY REQUIRING STRAIGHT CATH History of bilateral carotid endarterectomy History of cardiac cath 2004 ..TOLD HAD 2 OH'S - STENT X1 History of cholecystectomy History of colonoscopy History of hysterectomy supracervical History of left below knee amputation History of lumbar discectomy S/P vascular surgery 11/02/2020-right common femoral endarterectomy, right femoral and posterior tibial bypass Family History Father Family history of diabetes mellitus Family history of COPD (chronic obstructive pulmonary disease) Sister Breast cancer Social History Smoking Status: Former smoker Tobacco Type: Cigarettes Years Smoked: 54; Cigarettes Per Day: 3; Second Hand Exposure: No; Hx Alcohol Use: No Hx Substance Use: No Preferred Language: [place] Communication Ability: Effective Visual Impairment: Limited Hearing Ability: Normal Felt Strip Finisher Required: No Beliefs That Will Affect Care: None marital status: Current Living Situation: Spouse current occupational status: disabled Other Information That Helps Us Care for You: No Feels Safe at Home: Yes Safety Concerns: Feels Safe At This Time Assistive Devices: Denture - Upper, Denture - Lower, Glasses and Walker Review of Systems Review of Systems: All systems reviewed & are unremarkable except as noted in HPI & below Physical Exam Physical Exam: General: Awake, alert and oriented x 3. No acute distress. HEENT: Normocephalic, atraumatic. Pupils equal, round and reactive to light and accommodation. Extraocular muscles are intact. Anicteric sclera. Moist mucous membranes. Neck: No JVD. No bruit. Cardiovascular: Regular. Positive S-4. Normal S-1 and S-2. No S-3. 3/6 mid to late systolic ejection murmur, greatest at the right sternal border, second intercostal space with radiation to the bilateral carotids. No rubs. Pulmonary: Clear to auscultation bilaterally. No rales, rhonchi, or wheezing. Abdomen: Bowel sounds x 4, soft. No rebound, guarding or tenderness. No organomegaly. Extremities: No clubbing, cyanosis or edema. +2 pedal pulses bilaterally. Skin: Warm and dry. Results & Data ([facility]) Vital Signs (Past 12 Hours) Vital Signs Temp Pulse Pulse Resp BP BP Pulse Ox 03/07/21 07:47 37.5 C 79 16 118/80 97 03/07/21 06:27 38.3 C H 78 18 94 03/07/21 05:43 39.0 C H 88 20 101/52 L 94 03/07/21 05:31 22 101/52 L 03/07/21 05:30 20 71/45 L 03/07/21 05:10 96 H 21 98/56 L 95 03/07/21 05:00 99 H 15 95 03/07/21 04:30 99 H 26 H 112/56 L 94 03/07/21 04:27 100 H 22 03/07/21 04:23 95 H 21 114/66 03/07/21 04:20 39.4 C H 98 H 22 112/56 L 88 L
[2021-03-07] MEDS: cefTRIAXone SODIUM 1,000 MG in DEXTROSE 5% 50 ML IV SCH (10:10)
[2021-03-07] MEDS: DOXYCYCLINE HYCLATE 100 MG in DEXTROSE 5% 100 ML IV SCH ×2 (10:11→20:48)
[2021-03-07] MEDS: GABAPENTIN 800 MG TAB PO SCH ×3 (10:11→20:46)
[2021-03-07] MEDS: INSULIN ASPART 100 UNITS/ML 3 ML PEN SC SCH ×4 (10:12→21:47)
[2021-03-07] MEDS: METOPROLOL SUCC 25MG EXT REL TAB PO SCH (10:12)
--- NOTE | 2021-03-07 10:16 | CT Scan Report ---
CT SCAN OF THE CHEST WITHOUT IV CONTRAST CLINICAL HISTORY: Dyspnea. Hypoxia. COMPARISON STUDY: Chest x-ray dated 03/07/2021. TECHNIQUE: CT scan of the thorax was performed from the thoracic inlet to the upper abdomen. Images are reviewed in the axial, sagittal, and coronal planes. IV contrast was not administered for this ex amination as per the referring clinician. A dose lowering technique was utilized [facility] DOSE: 606.93 mGy.cm FINDINGS: Thyroid: Imaged portions of the thyroid gland are normal in size and attenuation. Thoracic aorta: There is advanced atherosclerotic calcification of the thoracic aorta, which is prachi l in caliber and demonstrates standard 3-vessel arch anatomy. Heart: The heart is enlarged and without pericardial effusion. The coronary arteries, aortic valve le aflets, and mitral annulus are densely calcified. The pulmonary trunk is dilated measuring 3.6 cm in diameter. This suggests pulmonary artery hypertension. Lungs and pleural spaces: Emphysematous change is noted. There is no airspace consolidation typical f or pneumonia. Trace right pleural effusion is identified. Foci of scarring/atelectasis are seen throu ghout both lungs. There is diffuse subpleural reticulation. The trachea and central airways are clear . Mediastinum: Subcentimeter mediastinal lymph nodes are not pathologically enlarged by size criteria. Vane: Not well assessed without IV contrast. Axillae: There is no axillary lymphadenopathy. Upper abdomen: There is a small hiatal hernia. The liver is cirrhotic in morphology with nodularity o f the surface contour. The partially imaged spleen is enlarged. There is trace perihepatic ascites ri ght upper pole renal cysts are partially visualized and measure up to 4.5 cm. There are 2 nonobstruct ing right renal calculi identified which measure up to 3 mm. Skeletal structures: The skeletal structures are osteopenic. A right shoulder arthroplasty is noted o n the environmental field services technician tomogram. Advanced arthritic changes seen in the left shoulder. Degenerative change and k yphoscoliosis is seen throughout the thoracic spine. No lytic or blastic bony lesions are seen. IMPRESSION: 1. Cardiomegaly and emphysema. 2. There is no airspace consolidation typical for pneumonia. 3. Trace right pleural effusion. 4. Cirrhotic liver morphology and trace perihepatic ascites. 5. Splenomegaly. 6. Right-sided nephrolithiasis. 7. Additional findings as above. ACT 112: Negative or not required by law. Electronically signed by: Jono Berg M.D. 03/07/2021 10:14 AM
[2021-03-07] MEDS: ASPIRIN 81 MG ECTAB PO SCH (10:25)
--- NOTE | 2021-03-07 11:05 | History and Physical Report ---
DATE OF ADMISSION: 03/07/2021 CHIEF COMPLAINT: Shortness of breath and chest pain. 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 In January, she had right shoulder surgery and the right upper extremity is still in a sling, but the surgical site is healing well. Yesterday, she saw her PCP for preop for upcoming biopsy of her bladder. The patient had a first COVID shot on 02/27. Tonight suddenly she became shaky, spiking temperature and also had some chest pain, and shortness of breath. She thinks she has some loss of sense of smell and taste for 1 day. Denies any cough currently. The patient was having high temperature in the ER. Currently with fluids and tylenol , she is feeling better. Initially, she was saturating 88% on room air, currently on 3 liters, she is saturating fine. Her chest pain got resolved. Initially as per the ER, she was somewhat confused but it is cleared up. Currently denies any chest pain. Currently denies any shortness of breath. Has headaches, some blurred visions. No runny nose, no sore throat. No nausea, no abdominal pain, no diarrhea or constipation, says she was incontinent of urine a few times today. No rash seen. ALLERGIES: PENICILLINS, IODINATED CONTRAST, AND OXYCODONE. PAST MEDICAL HISTORY: As mentioned above. PAST SURGICAL HISTORY: Amputation of left below-knee, colonoscopy, EGDs, EGD with endoscopic ultrasound, right lower extremity debridement and left shoulder surgery, hysterectomy, bladder tumor removal in 2019, cholecystectomy, reverse total shoulder arthroplasty on 01/30/2021, bilateral thromboendarterectomy with patch, neck incision MEDICATIONS: The patient is on melatonin 1 mg p.o. at bedtime, prednisone 2.5 mg p.o. daily, probiotic 1 capsule p.o. t.i.d. with meals, VESIcare 5 mg p.o. daily, oxycodone 5 mg 1 tablet every 4 hours p.r.n., allopurinol 450 mg p.o. daily, leflunomide 10 mg p.o. daily, Toprol-XL 12.5 mg p.o. daily, albuterol 2 puffs q.i.d., DuoNeb 3 mL q.6 hours p.r.n., atorvastatin 80 mg p.o. daily, gabapentin 800 mg p.o. t.i.d., omeprazole 40 mg p.o. daily, citalopram 40 mg p.o. daily, Lasix 40 mg p.o. b.i.d., ferrous sulfate 325 mg p.o. t.i.d., magnesium 400 mg p.o. b.i.d., folic acid 1 mg p.o. daily, Symbicort 2 puffs b.i.d., Flonase 1 spray in each nostril daily, nitroglycerin 0.4 mg sublingual p.r.n., aspirin 81 mg p.o. daily, multivitamin with minerals 1 tablet p.o. daily. FAMILY HISTORY: Significant for mother has alcoholism, dementia. Father has rheumatic fever, COPD. Sister has COPD, endometriosis, peripheral vascular disease. SOCIAL HISTORY: , smokes 3-4 cigarettes a day, smoked for 54 years. No alcohol use, no drug use. REVIEW OF SYMPTOMS: As per HPI. Rest of the review of systems negative. PHYSICAL EXAMINATION: GENERAL: The patient is obese, currently not in acute distress. VITAL SIGNS: T-max 39.4, pulse 70, respiratory rate 18, blood pressure 101/52, oxygen 88% on room air, currently 94% on 3 liters. HEENT: Pupils equal, round, reactive to light. Oral mucosa somewhat dry. NECK: No JVD, no neck masses. CARDIOVASCULAR: S1, S2 heard, regular rate and rhythm, no murmur, no gallop. RESPIRATORY SYSTEM: Normal AP diameter. No accessory muscle use. No wheezing, no crackles. ABDOMEN: Soft, bowel sounds present, nontender. No distention. CENTRAL NERVOUS SYSTEM: Alert and oriented. No facial droop. Speech clear. Obeys simple commands. Moves extremities. EXTREMITIES: Status post left below-knee amputation. No edema, no erythema seen. LABORATORY DATA: WBC 7.3, hemoglobin 12.5, hematocrit 35.8, platelets 145. Venous blood gas pH of 7.4. Sodium 134, potassium 4.1, chloride 98, bicarbonate 29, BUN 55, creatinine 1.8, serum glucose 143, lactate 2, calcium of 9.1, magnesium 1.9, total bilirubin 0.6, direct bilirubin 0.3, AST 19, ALT 29, alkaline phosphatase 178. Troponin I of 0.5. BNP 24,000. Lipase 95. Procalcitonin 3.6. SARS-CoV-2 PCR negative. Influenza A and B PCR negative, RSV PCR negative. IMAGING: Chest x-ray, no obvious acute findings. EKG: Sinus rhythm with pvc at rate of 100.poor r wave progression. ASSESSMENT AND PLAN: This is a 70-year-old female with past medical history significant for diabetes, chronic diastolic and systolic congestive heart failure, chronic obstructive pulmonary disease, peripheral artery disease, hypertension, nonalcoholic steatohepatitis, chronic kidney disease stage III, history of bladder cancer, status post surgery, rheumatoid arthritis, depression, who comes because of high fever, loss of sense of smell or taste, shortness of breath, and chest pain. 1. High fevers, shortness of breath, chest pain, and also loss of sense of smell and taste. Her first COVID shot was on 02/27. Though COVID PCR is negative, highly suspicious for COVID because of hypoxia, lymphopenia and high fever. We will keep the patient in isolation with COVID precautions, air-borne precautions. Repeat COVID testing again tomorrow. ER empirically gave her Levaquin. We will empirically start with Zosyn and doxycycline.IV Decadron. We will follow the urinalysis and culture and also blood cultures. Closely monitor in the telemetry floor. 2. Chest pain, mild elevation of troponin, possible non-ST elevated myocardial infarction from ongoing illness. Rule out ACS. Empirically start on IV heparin because of chest pain. Currently, patient is asymptomatic. We will follow the EKG, serial troponins. Echocardiogram as per cardiology and cardiology consult. 3. Possible pneumonia. We will follow the CT of chest.Abx as above 4. Chronic systolic and diastolic congestive heart failure. Echocardiogram in 09/2020 showed ejection fraction of 40%-45%, grade 2 diastolic congestive heart failure, severe mitral regurgitation, moderate valvular aortic stenosis. Because of ongoing illness, holding the diuretics. Continue Toprol-XL with holding parameters. Await cardiac input. Also hold spironolactone. Monitor the volume status.If No congestion on ct chest can start on fluids. 5. Acute kidney injury on chronic kidney disease stage III, baseline creatinine seems to be around 1.1, present creatinine of 1.8. Holding diuretics. We will follow the repeat laboratories. If any concerns will consult nephrology. 6. Diabetes, currently not on medication. Currently getting steroids. We will place her on insulin sliding scale. Follow HbA1c levels. Follow the blood sugars. 7. Hyperlipidemia, on statin. 8. History of chronic obstructive pulmonary disease, currently not wheezing. Continue home inhalers and nebulizers p.r.n. 9. Peripheral artery disease, bilateral carotid disease, on aspirin and statin. 10. History of malignant neoplasm of the bladder, status post surgery. Plan for bladder biopsy. 11. History of rheumatoid arthritis. We will hold Arava and home prednisone. Currently getting steroids. 12. Depression, on citalopram. 13. Deep venous thrombosis prophylaxis, getting IV heparin. DISPOSITION: Closely monitor in the tele floor. Level 1 full code. Social service to help with discharge planning. MTDD
--- NOTE | 2021-03-07 14:28 | Hospitalist Progress Note ---
Date of Service March 07, 2021 Assessment & Plan (1) Sepsis: resolved on current antibiotic therapy. GNR growing in blood, awaiting speciation. Likely bladder is source, possibly from translocation of bacteria. ID consulted and appreciate recommendations. Noted urine culture negative as urine culture taken after abx started. Also recommend to stop doxycycline and continue ceftriaxone for now pending further speciation. Of note, patient was initially septic and reporting issues with smelling and sense of taste. Therefore, despite her COVID PCR being negative, she was placed in airborne isolation. Now that she is improved and it is clear she doesn't have a pneumonia or other respiratory symptoms, and that her senses have returned to normal, she was retested for COVID PCR. This was negative and airborne isolation was removed. 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 (2) Bacteremia: Cont ceftriaxone for now with possible transition to oral Levaquin, but will await further speciation/sensitivities. (3) Bladder cancer: s/p treatment with Urology. With likely urologic source, will consult Urology to ensure they are good with the current plan. Urinary incontinence present and patient is on Vesicare. (4) Cirrhosis of liver: compensated. Has ah h/o heavy alcohol use in the past. (5) Aortic stenosis: chronic. (6) Rheumatoid arthritis: restarted daily prednisone. Chronic, stable without evidence of flare. (7) Diabetes mellitus type 2, diet-controlled: Was off metformin for a couple of years, now he is requiring treatment. Initially somewhat noncompliant with insulin to control blood sugar, but not is ok with this. Will have her follow-up with PCP to discuss further treatment as outpatient. Updated A1C is 7.0. (8) PAD (peripheral artery disease): s/p L BKA (9) Demand ischemia: elevated troponin on admission likely related to demand ischemia in setting of sepsis. Cardiology consulted and no further workup felt to be needed at this time from a cardiac standpoint. (10) Acute kidney injury: Improved with resuscitation, but not resolved to baseline 1.1. Cont to encourage hydration and PO intake and repeat BMP in am. (11) Depression: citalopram per home regimen (12) DVT prophylaxis: Heparin Full Code Dispo-uncertain at this time. Pending further discussion [facility] case management and PT/OT evaluations. Melissa Gutierrez DO [facility] Hospitalist Admission and Anticipated Discharge Date Admission Date: March 07, 2021 Subjective 70 yo F presented with worsening shortness of breath and sepsis and found to have gram negative bacteremia. Just recently admitted but already feeling better with treatment. Still with some fevers. Dyspnea on exertion reported which is new for her. Tolerating PO Review of Systems Review of Systems: All systems reviewed & are unremarkable except as noted in Subjective Physical Exam Physical Exam: CONSTITUTIONAL: WNWD, vitals as above, generally well- appearing EYES: normal conjunctivae, no scleral icterus ENT: external ear and nose normal, MMM RESPIRATORY: clear to auscultation bilaterally, no crackles, rales or wheezes, normal respiratory effort CARDIOVASCULAR: regular rate and rhythm, 3/6 DOMINIQUE heard, no gallops or rubs, no JVD, no peripheral edema GASTROINTESTINAL: soft, nontender, nondistended, no guarding MUSCULOSKELETAL: strength 5/5 throughout, left BKA. head is normocephalic and atraumatic SKIN: warm and dry NEUROLOGIC: CN 2-12 grossly intact, no sensory deficit, normal cognition, normal speech, no tremor. No gross focal deficits. PSYCHIATRIC: alert cooperative and oriented to person, place and time. Results & Data Results & Data ([facility]) Vital Signs (Past 12 Hours) Vital Signs Temp Pulse Pulse Resp BP BP Pulse Ox 03/07/21 11:11 36.9 C 70 20 109/58 L 96 03/07/21 08:24 37.2 C 77 18 106/69 100 03/07/21 07:47 37.5 C 79 16 118/80 97 03/07/21 06:27 38.3 C H 78 18 94 03/07/21 05:43 39.0 C H 88 20 101/52 L 94 03/07/21 05:31 22 101/52 L 03/07/21 05:30 20 71/45 L 03/07/21 05:10 96 H 21 98/56 L 95 03/07/21 05:00 99 H 15 95 03/07/21 04:30 99 H 26 H 112/56 L 94 03/07/21 04:27 100 H 22 03/07/21 04:23 95 H 21 114/66 03/07/21 04:20 39.4 C H 98 H 22 112/56 L 88 L Laboratory Results Short CBC 03/07/21 Range/Units Unknown WBC 7.35 (4.8-10.8) K/uL Hgb 12.5 (12.0-16.0) g/dL Hct 35.8 L (37-47) % Plt Count 145 (130-400) K/uL BMP 03/07/21 Unknown Sodium 134 L Potassium 4.1 Chloride 98 Carbon Dioxide 29 BUN 55 H Creatinine 1.81 H Glucose 143 H Calcium 9.1 Cardiac Enzymes 03/07/21 03/07/21 Range/Units 09:06 Unknown Troponin I 0.496 H* 0.504 H* (0-0.045) ng/ml Liver Function 03/07/21 Range/Units Unknown Total Bilirubin 0.6 (0.2-1) mg/dl Direct Bilirubin 0.3 H (0-0.2) mg/dl AST 19 (15-37) U/L ALT 29 (12-78) U/L Alkaline Phosphatase 178 H (45-117) U/L Albumin 2.7 L (3.4-5.0) gm/dl Medications Administered Current Inpatient Medications Acetaminophen (Acetaminophen 325 Mg Tab) 650 mg PO Q4H PRN PRN Reason: Pain or Fever Stop: 04/06/21 08:21 Albuterol (Albuterol Hfa 8 Gm Inhaler) 2 puffs INH QIDR [facility]Y Stop: 04/06/21 14:59 Allopurinol (Allopurinol 300 Mg Tab) 300 mg PO QAM [facility] Stop: 04/07/21 08:59 Aspirin (Aspirin 81 Mg Ectab) 81 mg PO DAILY [facility] Stop: 04/06/21 08:59 Last Admin: 03/07/21 10:25 Dose: Not Given Documented by: Atorvastatin Calcium (Atorvastatin 40 Mg Tab) 80 mg PO HS RAFY Stop: 04/06/21 20:59 Citalopram Hydrobromide (Citalopram 40 Mg Tab) 40 mg PO HS [facility]Y Stop: 04/06/21 20:59 Dextrose (Dextrose 50% 50 Ml Syringe) 25 - 50 ml IV UD PRN; Protocol PRN Reason: Hypoglycemia Protocol Stop: 04/06/21 08:29 Docusate Sodium (Docusate Sodium 100 Mg Cap) 100 mg PO BID [facility]Y Stop: 04/06/21 20:59 Ferrous Gluconate (Ferrous Gluconate 324 Mg Tab) 324 mg PO BID [facility]Y Stop: 04/06/21 20:59 Folic Acid (Folic Acid 1 Mg Tab) 1 mg PO QAM [facility] Stop: 04/07/21 08:59 Gabapentin (Gabapentin 800 Mg Tab) 800 mg PO TID [facility]Y Stop: 04/06/21 08:59 Last Admin: 03/07/21 10:11 Dose: 800 mg Documented by: Glucagon (Glucagon For Inj 1 Mg Vial) 1 mg IM UD PRN; Protocol PRN Reason: Hypoglycemia Protocol Stop: 04/06/21 08:29 Glucose (Glucose 40% Gel 15 Gm Tube) 15 - 30 gm PO UD PRN; Protocol PRN Reason: Hypoglycemia Protocol Stop: 04/06/21 08:29 Glucose (Glucose 10 Tabs/Tube) 4 - 8 tabs PO UD PRN; Protocol PRN Reason: Hypoglycemia Protocol Stop: 04/06/21 08:29 Ceftriaxone Sodium 1,000 mg/ (Dextrose) 50 mls @ 100 mls/hr IV Q24H [facility]; Protocol Stop: 03/14/21 08:59 Last Infusion: 03/07/21 10:48 Dose: Infused Documented by: Doxycycline Hyclate 100 mg/ (Dextrose) 110 mls @ 50 mls/hr IV Q12H [facility] Stop: 03/14/21 08:59 Last Infusion: 03/07/21 13:28 Dose: Infused Documented by: Dexamethasone 6 mg/ Syringe 1.5 mls @ 1 mls/min IV Q24H [facility] Stop: 04/07/21 06:59 Insulin Aspart (Insulin Aspart 100 Units/Ml 3 Ml Pen) 0 units SC ACHS [facility] Stop: 04/06/21 08:21 Last Admin: 03/07/21 12:37 Dose: Not Given Documented by: Ipratropium [place] (Ipratropium [place] Neb Soln 0.02% 2.5 Ml Vial) 0.5 mg INH Q4R PRN PRN Reason: shortness of breath/wheezing Stop: 04/06/21 08:21 Levalbuterol HCl (Levalbuterol 1.25mg/0.5ml Neb) 1.25 mg INH Q4R PRN PRN Reason: shortness of breath/wheezing Stop: 04/06/21 08:21 Magnesium Oxide (Magnesium Oxide 400 Mg Tab) 400 mg PO BID [facility] Stop: 04/06/21 20:59 Metoprolol Succinate (Metoprolol Succ 25mg Ext Rel Tab) 12.5 mg PO DAILY [facility] Stop: 04/06/21 08:59 Last Admin: 03/07/21 10:12 Dose: 12.5 mg Documented by: Miscellaneous (Carbohydrates For Hypoglycemia ) 15 - 30 gm PO UD PRN PRN Reason: Hypoglycemia Treatment Stop: 04/06/21 08:29 Miscellaneous (Vesicare ~ Order Awaiting Action) 1 ea N/A QS [facility] Stop: 04/06/21 15:59 Miscellaneous (Imiquimod [Aldara] 5 % Cream ~ Order Awaiting Action) 1 ea N/A QS [facility] Stop: 04/06/21 15:59 Multivitamins (Multivitamin Tab) 1 tab PO QAM [facility] Stop: 04/07/21 08:59 Nitroglycerin (Nitroglycerin Sl 0.4 Mg/Tab Tab) 0.4 mg SL UD PRN PRN Reason: Chest Pain Stop: 04/06/21 08:21 Nitroglycerin (Nitroglycerin Sl 0.4 Mg/Tab Tab) 0.4 mg SL PRN PRN PRN Reason: Chest Pain Stop: 04/06/21 09:00 Oxycodone HCl (Oxycodone Hcl Ir 5 Mg Tab (Immediate Release)) 5 mg PO Q6H PRN PRN Reason: PAIN SCALE (6-10) Stop: 03/21/21 11:10 Pantoprazole Sodium ([facility] 40 Mg Tab) [facility] Stop: 04/07/21 06:29 Polyethylene Glycol (Polyethylene (Miralax) 17 Gm Pack) 17 gm PO DAILY PRN PRN Reason: Constipation Stop: 04/06/21 08:21 Solifenacin (~Solifenacin-Non Form Pt Own Med) 1 ea PO QAM [facility] Stop: 04/07/21 08:59 Tramadol HCl (Tramadol Hcl 50 Mg Tablet) 50 mg PO BID PRN PRN Reason: PAIN SCALE (1-5) Stop: 04/06/21 09:56 (1) Sepsis Sepsis acute organ dysfunction status: with acute organ dysfunction Sepsis type: sepsis due to unspecified organism Severe sepsis acute organ dysfunction type: encephalopathy Severe sepsis shock status: without septic shock Qualified Code(s): A41.9 - Sepsis, unspecified organism; R65.20 - Severe sepsis without septic shock; G93.40 - Encephalopathy, unspecified
[2021-03-07] MEDS ORDERED: ALBUTEROL HFA 8 GM INHALER INH SCH (15:00)
--- NOTE | 2021-03-07 15:19 | Electrocardiogram Report ---
Test Reason : Blood Pressure : / mmHG Vent. Rate : 100 BPM Atrial Rate : 100 BPM P-R Int : 190 ms QRS Dur : 114 ms QT Int : 380 ms P-R-T Axes : 081 -50 062 degrees QTc Int : 490 ms Sinus rhythm with frequent Premature ventricular complexes Left anterior fascicular block Anterolateral infarct , age undetermined Abnormal ECG When compared with ECG of 20-OCT-2020 06:43, Premature ventricular complexes are now Present IL interval has decreased Nonspecific T wave abnormality no longer evident in Lateral leads Confirmed by Daniel Ibarra ([id number]) on 03/07/2021 3:19:39 PM Referred By: REFERRED SELF Confirmed By:Xander Ibarra
--- NOTE | 2021-03-07 15:24 | Electrocardiogram Report ---
Test Reason : Blood Pressure : / mmHG Vent. Rate : 076 BPM Atrial Rate : 076 BPM P-R Int : 216 ms QRS Dur : 118 ms QT Int : 440 ms P-R-T Axes : 076 -43 070 degrees QTc Int : 495 ms Sinus rhythm with 1st degree A-V block with occasional Premature ventricular complexes Left axis deviation Anterior infarct (cited on or before 07-MAR-2021) Abnormal ECG Confirmed by Daniel Ibarra ([id number]) on 03/07/2021 3:23:52 PM Referred By: REFERRED SELF Confirmed By:Xander Ibarra
[2021-03-07] MEDS ORDERED: ALBUTEROL HFA 8 GM INHALER INH PRN (16:34)
[2021-03-07] MEDS: oxyCODONE HCL IR 5 MG TAB (IMMEDIATE RELEASE) PO PRN (18:14)
[2021-03-07] MEDS: MAGNESIUM OXIDE 400 MG TAB PO SCH (20:45)
[2021-03-07] MEDS: FERROUS GLUCONATE 324 MG TAB PO SCH (20:45)
[2021-03-07] MEDS: CITALOPRAM 40 MG TAB PO SCH (20:45)
[2021-03-07] MEDS: DOCUSATE SODIUM 100 MG CAP PO SCH (20:50)
[2021-03-07] MEDS: ATORVASTATIN 40 MG TAB PO SCH (20:51)
[2021-03-07 22:35] LABS: Appearance Urine Turbid (Clear); Bacteria Urine Automated Negative (Negative); Bilirubin Urine Negative (Negative); Blood Urine 2+ (Negative); Color Urine Yellow; Glucose Urine UA Negative (Negative); Ketones Urine Negative (Negative); Leukocyte Esterase Urine 3+ (Negative); Nitrite Urine Negative (Negative); Protein Urine 1+ (Negative); RBC Urine Automated 0-4 /hpf (0-4); Specific Gravity Urine 1.015 (1.000-1.030); Urobilinogen Urine Negative (Negative); WBC Urine Automated >30 /hpf (0-5); pH Urine 5.5 (4.5-7.5)
[2021-03-08 05:42] LABS: Hematocrit (blood only) 31.9 % (37-47); Hemoglobin 10.5 g/dL (12.0-16.0); Immature Granulocytes # (auto) 0.02 K/uL (0.00-0.02); Immature Granulocytes % (auto) 0.3 %; Lymphocytes # (auto) 0.19 K/uL (1.2-3.4); Lymphocytes % (auto) 2.8 %; Mean Corpuscular Hemoglobin 28.2 pg (25-34); Mean Corpuscular Hgb Conc 32.9 g/dL (32-36); Mean Corpuscular Volume 85.5 fL (80-100); Mean Platelet Volume 10.2 fL (7.4-10.4); Monocytes # (auto) 0.42 K/uL (0.11-0.59); Monocytes % (auto) 6.2 %; Neutrophils # (auto) 6.18 K/uL (1.4-6.5); Neutrophils % (auto) 90.7 %; Platelet Count 139 K/uL (130-400); RDW Coefficient of Variation 19.3 % (11.5-14.5); RDW Standard Deviation 60.6 fL (36.4-46.3); Red Blood Count 3.73 M/uL (4.2-5.4); White Blood Count 6.81 K/uL (4.8-10.8)
[2021-03-08 05:55] LABS: D Dimer 2510 ug/L FEU (0-500)
[2021-03-08 06:22] LABS: BUN Creatinine Ratio 39.5 (10-20); Calcium 9.2 mg/dl (8.5-10.1); Creatinine Clr Calc Pharmacy 30.5 ml/min; Est GFR (African American) 38.9; Est GFR (Non-African American) 33.6; Magnesium 2.2 mg/dl (1.8-2.4); Potassium 4.7 mmol/L (3.5-5.1)
[2021-03-08 06:27] LABS: C Reactive Protein 16.3 mg/dl (0-0.29); Ferritin 109.5 ng/ml (8-388)
[2021-03-08] MEDS: PANTOprazole 40 MG TAB PO SCH (06:54)
[2021-03-08] MEDS ORDERED: dexAMETHasone 6 MG in SYRINGE 0 ML IV SCH (07:00)
[2021-03-08 07:44] LABS: Estimated Average Glucose 154 mg/dl
[2021-03-08] MEDS: Heparin IV Adult Wt-Based Standard *NO* Bolus Protocol IV SCH ×2 (08:07→08:21)
[2021-03-08] MEDS: DOXYCYCLINE HYCLATE 100 MG in DEXTROSE 5% 100 ML IV SCH ×2 (08:48→20:50)
[2021-03-08] MEDS: FOLIC ACID 1 MG TAB PO SCH (08:50)
[2021-03-08] MEDS: [UNRECOGNIZED DRUG - REMARK] PO SCH (08:51)
[2021-03-08] MEDS: METOPROLOL SUCC 25MG EXT REL TAB PO SCH (08:52)
[2021-03-08] MEDS: ASPIRIN 81 MG ECTAB PO SCH (08:53)
[2021-03-08] MEDS: allopurinoL 300 MG TAB PO SCH (08:54)
[2021-03-08] MEDS: DOCUSATE SODIUM 100 MG CAP PO SCH ×2 (08:54→20:51)
[2021-03-08] MEDS: GABAPENTIN 800 MG TAB PO SCH ×3 (08:55→20:49)
[2021-03-08] MEDS: FERROUS GLUCONATE 324 MG TAB PO SCH ×2 (08:55→20:49)
[2021-03-08] MEDS: MAGNESIUM OXIDE 400 MG TAB PO SCH ×2 (08:56→20:49)
[2021-03-08] MEDS: MULTIVITAMIN TAB PO SCH (08:56)
[2021-03-08] MEDS: INSULIN ASPART 100 UNITS/ML 3 ML PEN SC SCH ×4 (09:15→21:04)
[2021-03-08] MEDS: cefTRIAXone SODIUM 1,000 MG in DEXTROSE 5% 50 ML IV SCH (09:40)
[2021-03-08] MEDS: oxyCODONE HCL IR 5 MG TAB (IMMEDIATE RELEASE) PO PRN ×2 (11:14→17:09)
--- NOTE | 2021-03-08 11:43 | Cardiology Progress Note ---
Date of Service March 08, 2021 Assessment & Plan (1) Bladder cancer: (2) Complicated UTI (urinary tract infection): (3) Acute kidney injury superimposed on chronic kidney disease: (4) Acute dehydration: (5) Demand ischemia: (6) Squamous cell carcinoma of vagina: (7) Elevated troponin: (8) CKD (chronic kidney disease), stage III: (9) COPD (chronic obstructive pulmonary disease): (10) PAD (peripheral artery disease): (11) Cirrhosis of liver: (12) Diabetes mellitus type 2, diet-controlled: (13) Aortic stenosis: (14) S/P vascular surgery: (15) CAD (coronary artery disease): Patient responding very well to antibiotic therapy. Urinalysis is significantly abnormal with gram-negative rods on initial culture. No further cardiac testing or events necessary at this time. Okay to DC telemetry from a cardiac standpoint. Admission and Anticipated Discharge Date Admission Date: March 07, 2021 Subjective Patient seen and examined, chart reviewed. Seated upright on the side of the bed eating lunch. States that she feels much better since presentation. No further episodes of diaphoresis or urinary incontinence. Denies chest pain, shortness of breath, palpitations, lightheadedness, dizziness or syncope. Telemetry reviewed: Sinus rhythm with underlying left bundle branch block, no arrhythmias Review of Systems Review of Systems: All systems reviewed & are unremarkable except as noted in HPI & below Physical Exam Physical Exam: General: Awake, alert and oriented x 3. No acute distress. HEENT: Normocephalic, atraumatic. Pupils equal, round and reactive to light and accommodation. Extraocular muscles are intact. Anicteric sclera. Moist mucous membranes. Neck: No JVD. No bruit. Cardiovascular: Regular. Positive S-4. Normal S-1 and S-2. No S-3. 3/6 mid to late systolic ejection murmur, greatest at the right sternal border, second intercostal space with radiation to the bilateral carotids. No rubs. Pulmonary: Clear to auscultation bilaterally. No rales, rhonchi, or wheezing. Abdomen: Bowel sounds x 4, soft. No rebound, guarding or tenderness. No organomegaly. Extremities: No clubbing, cyanosis or edema. +2 pedal pulses bilaterally. Skin: Warm and dry. Results & Data ([facility]) Vital Signs (Past 12 Hours) Vital Signs Temp Pulse Pulse Resp BP Pulse Ox Pulse Ox 03/08/21 08:22 98 03/08/21 08:00 36.4 C L 73 74 18 119/68 98 03/08/21 03:21 36.6 C 79 20 94/61 L 97 03/07/21 23:54 36.6 C 75 20 97/59 L 96
--- NOTE | 2021-03-08 12:23 | Electrocardiogram Report ---
Test Reason : Blood Pressure : / mmHG Vent. Rate : 074 BPM Atrial Rate : 074 BPM P-R Int : 222 ms QRS Dur : 126 ms QT Int : 420 ms P-R-T Axes : 076 -38 080 degrees QTc Int : 466 ms Sinus rhythm with 1st degree A-V block Left axis deviation Left bundle branch block Abnormal ECG When compared with ECG of 07-MAR-2021 09:53, Premature ventricular complexes are no longer Present Confirmed by Daniel Ibarra ([id number]) on 03/08/2021 12:22:44 PM Referred By: REFERRED SELF Confirmed By:Xander Ibarra
[2021-03-08] MEDS ORDERED: diphenhydrAMINE 50 MG/ML VIAL IV PRN (14:16)
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
[2021-03-08] MEDS ORDERED: OPTIRAY 350 500ml IV ONE (16:26)
--- NOTE | 2021-03-08 16:42 | CT Scan Report ---
CT ANGIOGRAM OF THE CHEST CLINICAL HISTORY: Atypical chest pain. COMPARISON STUDY: Chest CT dated 03/07/2021. TECHNIQUE: Following the IV administration of 91 cc of Optiray 350, CT angiogram of the chest was per formed from the upper abdomen to the thoracic inlet utilizing the pulmonary embolus protocol. Images are reviewed in the axial, sagittal, and coronal planes. 3-D MIPS images are created and assessed. IV contrast was administered without complication. A dose lowering technique was utilized adhering to the principles of ALARA. The examination is compromised by motion artifact. CT DOSE: 634.15 mGycm FINDINGS: Thyroid: Imaged portions of the thyroid gland are normal in size and attenuation. Thoracic aorta: There is atherosclerotic calcification of the thoracic aorta, which is normal in morris kirsten and demonstrates standard 3-vessel arch anatomy. The thoracic aorta is not well opacified. Suspec t high-grade stenosis of the left subclavian artery. Pulmonary vasculature: The pulmonary trunk is dilated, measuring 3.5 cm diameter. This suggests pulmo nary artery hypertension. There are no filling defects identified in main, lobar, or proximal segment al pulmonary branches to suggest pulmonary embolus. Evaluation of the peripheral branches is compromi sed by motion artifact, particularly in the lower lobes. Heart: The heart is enlarged and without pericardial effusion. The coronary arteries and mitral annul us are densely calcified. Lungs and pleural spaces: Evaluation of the lung parenchyma is degraded by motion artifact. Emphysema tous change is noted. There is no airspace consolidation typical for pneumonia. Trace right pleural e ffusion is identified. Foci of scarring/atelectasis are seen throughout both lungs. There is diffuse subpleural reticulation. The trachea and central airways are clear. Mediastinum: There is no mediastinal lymphadenopathy. Vane: Clear. Axillae: There is no axillary lymphadenopathy. Upper abdomen: There is a small hiatal hernia. The liver is cirrhotic in morphology with nodularity o f the surface contour. The partially imaged spleen is enlarged. There is trace perihepatic ascites. R ight upper pole renal cysts are partially visualized and measure up to 4.5 cm. Skeletal structures: The skeletal structures are osteopenic. A right shoulder arthroplasty is in plac e. Advanced arthritic changes seen in the left shoulder. Degenerative change and kyphoscoliosis is se en throughout the thoracic spine. No lytic or blastic bony lesions are seen. IMPRESSION: 1. Motion degraded examination. 2. There is no evidence of pulmonary embolus in the main, lobar, or proximal segmental pulmonary carrol daniel. 3. Cardiomegaly and emphysema. 4. There is no airspace consolidation or pleural effusion. 5. Cirrhotic liver morphology, splenomegaly, and trace perihepatic ascites. 6. Additional findings as above. ACT 112: Negative or not required by law. Electronically signed by: Jono Berg M.D. 03/08/2021 4:41 PM
--- NOTE | 2021-03-08 17:06 | Ultrasound Report ---
ULTRASOUND BILATERAL LOWER EXTREMITY VENOUS CLINICAL HISTORY: Elevated d-dimer. COMPARISON STUDY: Right lower extremity venous ultrasound dated 11/07/2019. TECHNIQUE: Real-time, grayscale, and color Doppler sonography of the deep veins of the right and left lower extremity was performed from the inguinal crease to the calf. Compression and augmentation wer e utilized. FINDINGS: Right lower extremity: The common femoral, superficial femoral, and popliteal veins are patent and no rmally compressible. The profunda femoris vein at the junction with the common femoral vein is clear. The visualized calf veins are patent. The greater saphenous vein is not identified and reported surg ically absent. Left lower extremity: The common femoral, superficial femoral, and popliteal veins are patent and nor ronna compressible. The greater saphenous vein and the profunda femoris vein at the junction with the common femoral vein are clear. The patient is status post post below-knee amputation. IMPRESSION: There is no sonographic evidence of deep venous thrombosis identified in the right or lef t lower extremity. ACT 112: Negative or not required by law. Electronically signed by: Jono Berg M.D. 03/08/2021 5:04 PM
[2021-03-08] MEDS: ATORVASTATIN 40 MG TAB PO SCH (20:48)
[2021-03-08] MEDS: CITALOPRAM 40 MG TAB PO SCH (20:49)
[2021-03-09 04:49] LABS: Influenza A virus by PCR Negative (Neg); Influenza B virus by PCR Negative (Neg); RSV by PCR Negative (Neg); SARS CoV2 RNA(COVID-19) InHosp NEGATIVE (Negative)
[2021-03-09] MEDS: PANTOprazole 40 MG TAB PO SCH (06:11)
[2021-03-09] MEDS: GABAPENTIN 800 MG TAB PO SCH ×3 (08:35→21:19)
[2021-03-09] MEDS: METOPROLOL SUCC 25MG EXT REL TAB PO SCH (08:35)
[2021-03-09] MEDS: FOLIC ACID 1 MG TAB PO SCH (08:36)
[2021-03-09] MEDS: allopurinoL 300 MG TAB PO SCH (08:36)
[2021-03-09] MEDS: FERROUS GLUCONATE 324 MG TAB PO SCH ×2 (08:36→21:19)
[2021-03-09] MEDS: MULTIVITAMIN TAB PO SCH (08:36)
[2021-03-09] MEDS: MAGNESIUM OXIDE 400 MG TAB PO SCH ×2 (08:36→21:19)
[2021-03-09] MEDS: ASPIRIN 81 MG ECTAB PO SCH (08:36)
[2021-03-09] MEDS: [UNRECOGNIZED DRUG - REMARK] PO SCH (08:37)
[2021-03-09] MEDS: INSULIN ASPART 100 UNITS/ML 3 ML PEN SC SCH ×4 (08:50→21:20)
[2021-03-09] MEDS: cefTRIAXone SODIUM 1,000 MG in DEXTROSE 5% 50 ML IV SCH (09:15)
[2021-03-09] MEDS: DOCUSATE SODIUM 100 MG CAP PO SCH ×2 (09:15→21:17)
[2021-03-09] MEDS: predniSONE 2.5 MG TAB PO SCH (10:09)
[2021-03-09] MEDS: CALCIUM CARBONATE 500 MG CHEWABLE TAB PO PRN ×2 (10:10→17:33)
[2021-03-09] MEDS: DOXYCYCLINE HYCLATE 100 MG in DEXTROSE 5% 100 ML IV SCH (10:12)
[2021-03-09 10:30] LABS: Hematocrit (blood only) 32.7 % (37-47); Hemoglobin 11.1 g/dL (12.0-16.0); Mean Corpuscular Hemoglobin 28.6 pg (25-34); Mean Corpuscular Hgb Conc 33.9 g/dL (32-36); Mean Corpuscular Volume 84.3 fL (80-100); Mean Platelet Volume 10.4 fL (7.4-10.4); Platelet Count 152 K/uL (130-400); RDW Coefficient of Variation 19.6 % (11.5-14.5); RDW Standard Deviation 60.6 fL (36.4-46.3); Red Blood Count 3.88 M/uL (4.2-5.4); White Blood Count 5.82 K/uL (4.8-10.8)
[2021-03-09 11:05] LABS: BUN Creatinine Ratio 38.1 (10-20); Calcium 8.5 mg/dl (8.5-10.1); Creatinine Clr Calc Pharmacy 29.2 ml/min; Est GFR (African American) 37.2; Est GFR (Non-African American) 32.1; Potassium 4.3 mmol/L (3.5-5.1)
--- NOTE | 2021-03-09 12:00 | Urology Consultation ---
Date of Consultation March 09, 2021 Assessment & Plan (1) Bacteremia: (2) Bladder cancer: 70 year-old female patient, with multiple comorbidities, admitted with fever and shortness of breath, found to have gram-negative bacilli bacteremia. -Plan of care reviewed with Dr. Thomas. -Patient febrile on admission, now afebrile. -Labs reviewed - white count stable, creatinine improving. -Urinalysis on admission not overly concerning for infection. Patient verified she did not start Doxycycline as outpatient. -Urine culture 03/07 with no growth. -Preliminary blood cultures positive for gram-negative bacilli, infection source uncertain at this time. -Recommend obtaining renal ultrasound to evaluate for obstruction, order placed. -No acute intervention indicated at this time. -Continue with supportive care and antibiotic therapy, await final blood cultures. -Recommend antibiotic therapy upon discharge and continuing up until upcoming urologic procedure, scheduled 03/19/21. -Will continue to follow while inpatient. 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 The evening of presentation, she had sudden onset shakiness, chest pain, and shortness of breath. She also reported some loss of sense of smell and taste x1 day. Initial COVID-19 test negative. She was admitted for further evaluation/treatment in COVID isolation precautions. Urology consulted for gram negative bacteremia, concern for urinary source. Patient known to [facility] [place] [facility] urology, follows with Dr. Thomas. History of high-grade bladder cancer initially diagnosed at outlying facility. Per notes, she is s/p TURBT in September with stent placement. Stent was removed in October 2020. Patient underwent BCG induction in November 2020 - completed 6/6 treatments on January 11, 2021. Repeat cystoscopy in the office on February 28 performed - a middle/right of midline trigone papillary appearing mass was noted. Due to suspicious findings on cystoscopy, does have upcoming procedure scheduled on March 19 in operating room for cystoscopy, possible TURBT, and possible bilateral retrograde pyelograms. Chart review: Febrile on admission, T max 39.4 Afebrile over the past 24 hours. Wbc 5.82 Hgb 11.1 Creatinine 1.61 (1.81 on admission). Urinalysis 03/07 with +3 leukocytes, >30 wbc, 0-4 rbc, negative bacteria, negative nitrates. Urine culture 03/07 no growth, less than 1,000 colonies/ml. Preliminary blood cultures x2 gram negative bacilli. Patient currently on IV Ceftriaxone. Imaging - Chest x-ray - IMPRESSION: Subtle patchy airspace consolidation is seen throughout both lungs and consistent with the reported history of a viral pneumonia. Radiographic follow-up to resolution is recommended. Chest CT - IMPRESSION: 1. Cardiomegaly and emphysema. 2. There is no airspace consolidation typical for pneumonia. 3. Trace right pleural effusion. 4. Cirrhotic liver morphology and trace perihepatic ascites. 5. Splenomegaly. 6. Right-sided nephrolithiasis. Chest CTA - IMPRESSION: 1. Motion degraded examination. 2. There is no evidence of pulmonary embolus in the main, lobar, or proximal segmental pulmonary arteries. 3. Cardiomegaly and emphysema. 4. There is no airspace consolidation or pleural effusion. 5. Cirrhotic liver morphology, splenomegaly, and trace perihepatic ascites. Patient seen and examined at bedside. She is alert, appears fatigued, non-toxic. Reports feeling "groggy" but overall feeling better since admission. She is voiding spontaneously. Reports need to double void but notes she feels like she empties her bladder fully. Denies hematuria or dysuria. Does report mild bladder discomfort at beginning of void which resolves shortly after initiation of stream. Tolerating PO diet. Notes low appetite. Mild nausea, denies vomiting. Denies fevers or chills today. Right arm currently in sling/immobilizer from prior procedure. Continues to have shortness of breath and intermittent chest pain. Does note chronic back pain. Denies significant flank pain. No abdominal pain. She reports she was prescribed Doxycycline as outpatient from orthopedics. She was to case picker prescription after discharged from rehab, but states she did not do so. Her primary care then recommended she start this antibiotic but she was evaluated and admitted to hospital before she was able to start medication. Therefore, no antibiotics prior to urine culture. Denies additional urologic concerns today. Allergies Allergy/AdvReac Type Severity Reaction Status Date / Time Penicillins Allergy Intermediate hives/upset Verified 03/07/21 07:18 stomach/diarrhea Iodinated Contrast Media AdvReac Intermediate severe Verified 03/07/21 07:18 [Iodinated Contrast- Oral vomiting and IV Dye] oxycodone [From Percocet] AdvReac Intermediate vomiting Verified 03/07/21 07:18 Home Medications Medication Instructions Recorded Confirmed Type gabapentin 800 mg tablet 800 mg PO TID tab 07/22/18 03/07/21 History omega 3-vxz-ynx-fish oil 1,000 mg 1 cap PO QAM cap 07/22/18 03/07/21 History (120 mg-180 mg) capsule atorvastatin 80 mg PO HS 03/01/19 03/07/21 History ferrous gluconate 324 mg PO BID 03/01/19 03/07/21 History folic acid 1 mg PO QAM 03/01/19 03/07/21 History metoprolol succinate 12.5 mg PO DAILY@1530 03/01/19 03/07/21 History multivitamin 1 tab PO QAM 03/01/19 03/07/21 History omeprazole 40 mg PO DAILYBB 03/01/19 03/07/21 History nitroglycerin 0.4 mg SUBLINGUAL DIRECTED PRN 04/05/19 03/07/21 History tramadol 50 mg PO BID PRN 07/15/19 03/07/21 History allopurinol 300 mg PO QAM 01/03/20 03/07/21 History furosemide [Lasix] 40 mg PO BID 07/21/20 03/07/21 History spironolactone [Aldactone] 100 mg PO BID 07/21/20 03/07/21 History aspirin [Aspirin Low Dose] 81 mg PO QAM 09/19/20 03/07/21 History citalopram 40 mg PO HS 09/19/20 03/07/21 History docusate sodium 100 mg PO BID 10/19/20 03/07/21 History imiquimod [Aldara] 1 applic TOPICAL UD 10/19/20 03/07/21 History solifenacin 5 mg tablet 5 mg PO DAILY #30 tab 03/05/21 03/07/21 Rx albuterol 2 puff INHALATION QID 03/07/21 03/07/21 History ipratropium-albuterol 3 ml INHALATION QID PRN 03/07/21 03/07/21 History leflunomide 10 mg PO QAM 03/07/21 03/07/21 History magnesium oxide 400 mg PO BID 03/07/21 03/07/21 History oxycodone 5 mg PO Q6H PRN 03/07/21 03/07/21 History prednisone 2.5 mg PO DAILY 03/07/21 03/07/21 History Patient History Medical History Acid reflux Aortic stenosis Aortic valve regurgitation Bladder mass s/p resection 10/02/20 at [facility] by Dr. Everett CAD (coronary artery disease) 2004 -PCI to unknown vessel Charcot foot due to diabetes mellitus Chronic combined systolic and diastolic CHF (congestive heart failure) Cirrhosis of liver "UNDETERMINED ORIGIN" CKD (chronic kidney disease), stage III pt denies having any problems with kidneys. Combined systolic and diastolic congestive heart failure COPD (chronic obstructive pulmonary disease) Diabetes mellitus type 2, diet-controlled Diabetic peripheral neuropathy Gout History of alcohol abuse History of anxiety History of depression History of endometriosis "STAGE 1 GRADE 1" History of sleep apnea HX CPAP HTN (hypertension) Hypercholesteremia SARANYA (iron deficiency anemia) Impaired fasting glucose A1C 6/1% 05/2019 Ischemic cardiomyopathy EF 40-44% Mitral regurgitation PAD (peripheral artery disease) Rheumatoid arthritis Snores Squamous cell carcinoma of vagina Valvular heart disease Surgical History History of anesthesia reaction PT REPORTS URINARY RETENTION POST OP, USUALLY REQUIRING STRAIGHT CATH History of bilateral carotid endarterectomy History of cardiac cath 2004 ..TOLD HAD 2 MD'S - STENT X1 History of cholecystectomy History of colonoscopy History of hysterectomy supracervical History of left below knee amputation History of lumbar discectomy S/P vascular surgery 11/02/2020-right common femoral endarterectomy, right femoral and posterior tibial bypass Family History Father Family history of diabetes mellitus Family history of COPD (chronic obstructive pulmonary disease) Sister Breast cancer Social History Smoking Status: Former smoker Tobacco Type: Cigarettes Years Smoked: 54; Cigarettes Per Day: 3; Second Hand Exposure: No; Hx Alcohol Use: No Hx Substance Use: No Preferred Language: Beninese Communication Ability: Effective Visual Impairment: Limited Hearing Ability: Normal Cooling Tower Technician Required: No Beliefs That Will Affect Care: None marital status: Current Living Situation: Spouse current occupational status: disabled Other Information That Helps Us Care for You: No Feels Safe at Home: Yes Safety Concerns: Feels Safe At This Time Assistive Devices: Brace/Splint/Immobilizer and Prosthesis Review of Systems Constitutional: as per Subjective / HPI Eyes: no problem reported Ear, Nose, Mouth, Throat: no dizziness Respiratory: as per Subjective / HPI Cardiovascular: as per Subjective / HPI Gastrointestinal: as per Subjective / HPI Musculoskeletal: as per Subjective / HPI Neurologic: no dizziness Endocrine: + fatigue Hematologic / Lymphatic: no easy bleeding and no easy bruising Physical Exam Constitutional: well nourished, cooperative and comfortable; no acute distress Chronically ill appearing ENMT: Ears: no external ear abnormality Nose: no external nose abnormality Neck: normal visual inspection and trachea midline Respiratory: able to speak in complete sentences (Appears mildly short of breath with this. ); no respiratory distress and no audible wheezes Cardiovascular: Extremities: no edema Gastrointestinal (Abdomen): Inspection/Auscultation: abdomen normal to inspection; abdomen not distended Percussion/Palpation: abdomen soft; abdomen nontender and no guarding Musculoskeletal: Moves all extremities without difficulty. Left below the knee amputation. Right arm immobilizer. Skin: No visible rashes, lesions, or wounds noted. Neurologic: moves all extremities and awake Psychiatric: Orientation: alert, oriented x 3 and cooperative Affect: euthymic affect Genitourinary: no CVA tenderness Results & Data ([facility]) Vital Signs (Past 12 Hours) Vital Signs Temp Pulse Pulse Resp BP Pulse Ox 03/09/21 11:20 37.2 C 66 18 125/71 95 03/09/21 08:00 67 03/09/21 07:14 36.6 C 66 18 121/75 95 03/09/21 03:31 36.4 C L 67 18 127/77 95 03/09/21 00:47 76 PG Care Time/CCT Total # of Minutes Spent Total Time Spent with Patient: Total time spent is greater than 50% in coordination of care (as documented) at patient's floor/unit and/or counseling patient: Coding Level of Care Code 57916 Initial Inpt Care Lvl 3 Diagnoses Bacteremia R78.81 Bladder cancer C67.9
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
--- NOTE | 2021-03-09 15:39 | Ultrasound Report ---
EXAMINATION: RENAL ULTRASOUND CLINICAL HISTORY: Elevated creatinine, evaluate for obstruction COMPARISON STUDY: CT scan dated 10/19/2020 FINDINGS: The right kidney measures 10.7 cm. The left kidney measures 10.2 cm. There are multiple bi lateral renal cysts. There is probable mild dilatation the right renal collecting system. There is s light increase in renal cortical echogenicity suggestive of medical renal disease Neither ureteral jet was visualized. There is mild splenomegaly (14 cm) The study was difficult from a technical standpoint secondary to the patient's limited mobility IMPRESSION : 1. Technically limited study 2. Bilateral renal cysts 3. Probable mild dilatation of the right renal collecting system. 4. Slight increase in renal cortical echogenicity suggesting medical renal disease 5. Mild splenomegaly ACT 112: Negative or not required by law. Electronically signed by: Tonny Mar M.D. 03/09/2021 3:38 PM
--- NOTE | 2021-03-09 16:19 | Electrocardiogram Report ---
Test Reason : Blood Pressure : / mmHG Vent. Rate : 066 BPM Atrial Rate : 066 BPM P-R Int : 210 ms QRS Dur : 118 ms QT Int : 448 ms P-R-T Axes : 076 -55 037 degrees QTc Int : 469 ms Sinus rhythm with 1st degree A-V block with occasional Premature ventricular complexes Low voltage QRS Left anterior fascicular block Cannot rule out Anterior infarct (cited on or before 09-MAR-2021) Abnormal ECG When compared with ECG of 08-MAR-2021 08:52, Premature ventricular complexes are now Present T wave inversion now evident in Anterior leads Nonspecific T wave abnormality no longer evident in Lateral leads Confirmed by Daniel Ibarra ([id number]) on 03/09/2021 4:19:34 PM Referred By: REFERRED SELF Confirmed By:Xander Ibarra
[2021-03-09] MEDS: SPIRONOLACTONE 100 MG TAB PO SCH (17:26)
[2021-03-09] MEDS: FUROSEMIDE 40 MG TAB PO SCH (17:26)
[2021-03-09] MEDS: CITALOPRAM 40 MG TAB PO SCH (21:18)
[2021-03-09] MEDS: ATORVASTATIN 40 MG TAB PO SCH (21:18)
[2021-03-10] MEDS: PANTOprazole 40 MG TAB PO SCH (05:30)
[2021-03-10] MEDS: cefTRIAXone SODIUM 1,000 MG in DEXTROSE 5% 50 ML IV SCH (08:48)
[2021-03-10] MEDS: ASPIRIN 81 MG ECTAB PO SCH (08:48)
[2021-03-10] MEDS: FUROSEMIDE 40 MG TAB PO SCH ×2 (08:48→18:09)
[2021-03-10] MEDS: METOPROLOL SUCC 25MG EXT REL TAB PO SCH (08:48)
[2021-03-10] MEDS: FOLIC ACID 1 MG TAB PO SCH (08:49)
[2021-03-10] MEDS: FERROUS GLUCONATE 324 MG TAB PO SCH ×2 (08:49→20:39)
[2021-03-10] MEDS: MAGNESIUM OXIDE 400 MG TAB PO SCH ×2 (08:49→20:39)
[2021-03-10] MEDS: predniSONE 2.5 MG TAB PO SCH (08:49)
[2021-03-10] MEDS: MULTIVITAMIN TAB PO SCH (08:49)
[2021-03-10] MEDS: [UNRECOGNIZED DRUG - REMARK] PO SCH (08:49)
[2021-03-10] MEDS: GABAPENTIN 800 MG TAB PO SCH ×3 (08:49→20:39)
[2021-03-10] MEDS: allopurinoL 300 MG TAB PO SCH (08:49)
[2021-03-10] MEDS: SPIRONOLACTONE 100 MG TAB PO SCH ×2 (08:49→18:09)
[2021-03-10] MEDS: DOCUSATE SODIUM 100 MG CAP PO SCH ×2 (08:50→20:39)
[2021-03-10] MEDS: INSULIN ASPART 100 UNITS/ML 3 ML PEN SC SCH ×4 (08:50→20:42)
--- NOTE | 2021-03-10 13:48 | Cardiology Progress Note ---
Date of Service March 10, 2021 Assessment & Plan (1) Bladder cancer: (2) Complicated UTI (urinary tract infection): (3) Acute kidney injury superimposed on chronic kidney disease: (4) Acute dehydration: (5) Demand ischemia: (6) Squamous cell carcinoma of vagina: (7) Elevated troponin: (8) CKD (chronic kidney disease), stage III: (9) COPD (chronic obstructive pulmonary disease): (10) PAD (peripheral artery disease): (11) Cirrhosis of liver: (12) Diabetes mellitus type 2, diet-controlled: (13) Aortic stenosis: (14) S/P vascular surgery: (15) CAD (coronary artery disease): Patient responding very well to antibiotic therapy. Urinalysis is significantly abnormal with gram-negative rods on initial culture. No further cardiac testing or events necessary at this time. Okay to DC telemetry from a cardiac standpoint. Admission and Anticipated Discharge Date Admission Date: March 07, 2021 Subjective Patient seen and examined, chart reviewed. States that she is feeling much better today but is still concerned due to urinary incontinence. Denies any cardiac complaints of chest pain, shortness of breath, palpitations, lightheadedness, dizziness or syncope. Telemetry reviewed: Sinus rhythm with occasional PVCs. Review of Systems Review of Systems: All systems reviewed & are unremarkable except as noted in HPI & below Physical Exam Physical Exam: General: Awake, alert and oriented x 3. No acute distress. HEENT: Normocephalic, atraumatic. Pupils equal, round and reactive to light and accommodation. Extraocular muscles are intact. Anicteric sclera. Moist mucous membranes. Neck: No JVD. No bruit. Cardiovascular: Regular. Positive S-4. Normal S-1 and S-2. No S-3. 3/6 mid to late systolic ejection murmur, greatest at the right sternal border, second intercostal space with radiation to the bilateral carotids. No rubs. Pulmonary: Clear to auscultation bilaterally. No rales, rhonchi, or wheezing. Abdomen: Bowel sounds x 4, soft. No rebound, guarding or tenderness. No organomegaly. Extremities: No clubbing, cyanosis or edema. +2 pedal pulses bilaterally. Skin: Warm and dry. Results & Data ([facility]) Vital Signs (Past 12 Hours) Vital Signs Temp Pulse Pulse Resp BP Pulse Ox 03/10/21 11:14 37.2 C 72 19 129/71 94 03/10/21 08:00 73 03/10/21 07:25 36.6 C 72 19 129/76 97 03/10/21 03:20 37.5 C 75 18 129/72 92
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
[2021-03-10 14:48] LABS: BUN Creatinine Ratio 31.1 (10-20); Calcium 9.4 mg/dl (8.5-10.1); Creatinine Clr Calc Pharmacy 26.9 ml/min; Est GFR (African American) 33.8; Est GFR (Non-African American) 29.2; Potassium 4.4 mmol/L (3.5-5.1)
[2021-03-10] MEDS: levoFLOXacin 750 MG TAB PO SCH (15:08)
[2021-03-10] MEDS: traMADol HCL 50 MG TABLET PO PRN (15:11)
[2021-03-10] MEDS: CITALOPRAM 40 MG TAB PO SCH (20:39)
[2021-03-10] MEDS: ATORVASTATIN 40 MG TAB PO SCH (20:39)
[2021-03-11] MEDS: PANTOprazole 40 MG TAB PO SCH (05:50)
[2021-03-11 06:33] LABS: BUN Creatinine Ratio 32.9 (10-20); Calcium 8.9 mg/dl (8.5-10.1); Creatinine Clr Calc Pharmacy 30.6 ml/min; Est GFR (African American) 39.5; Est GFR (Non-African American) 34.1
[2021-03-11] MEDS: [UNRECOGNIZED DRUG - REMARK] PO SCH (09:05)
[2021-03-11] MEDS: MAGNESIUM OXIDE 400 MG TAB PO SCH ×2 (09:06→21:18)
[2021-03-11] MEDS: FERROUS GLUCONATE 324 MG TAB PO SCH ×2 (09:06→21:16)
[2021-03-11] MEDS: GABAPENTIN 800 MG TAB PO SCH ×3 (09:06→21:15)
[2021-03-11] MEDS: FOLIC ACID 1 MG TAB PO SCH (09:07)
[2021-03-11] MEDS: SPIRONOLACTONE 100 MG TAB PO SCH ×2 (09:07→18:34)
[2021-03-11] MEDS: FUROSEMIDE 40 MG TAB PO SCH ×2 (09:07→18:34)
[2021-03-11] MEDS: allopurinoL 300 MG TAB PO SCH (09:07)
[2021-03-11] MEDS: MULTIVITAMIN TAB PO SCH (09:08)
[2021-03-11] MEDS: METOPROLOL SUCC 25MG EXT REL TAB PO SCH (09:08)
[2021-03-11] MEDS: predniSONE 2.5 MG TAB PO SCH (09:08)
[2021-03-11] MEDS: ASPIRIN 81 MG ECTAB PO SCH (09:08)
[2021-03-11] MEDS: DOCUSATE SODIUM 100 MG CAP PO SCH ×2 (09:08→22:17)
[2021-03-11] MEDS: INSULIN ASPART 100 UNITS/ML 3 ML PEN SC SCH ×4 (09:47→21:24)
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
[2021-03-11] MEDS: traMADol HCL 50 MG TABLET PO PRN (20:18)
[2021-03-11] MEDS: ATORVASTATIN 40 MG TAB PO SCH (21:15)
[2021-03-11] MEDS: CITALOPRAM 40 MG TAB PO SCH (21:16)
[2021-03-11] MEDS: ENOXAPARIN INJ 40 MG/0.4 ML SYR SQ SCH (23:19)
[2021-03-12] MEDS: PANTOprazole 40 MG TAB PO SCH (06:10)
[2021-03-12] MEDS: MULTIVITAMIN TAB PO SCH (09:19)
[2021-03-12] MEDS: allopurinoL 300 MG TAB PO SCH (09:20)
[2021-03-12] MEDS: SPIRONOLACTONE 100 MG TAB PO SCH ×2 (09:24→18:13)
[2021-03-12] MEDS: predniSONE 2.5 MG TAB PO SCH (09:24)
[2021-03-12] MEDS: FERROUS GLUCONATE 324 MG TAB PO SCH ×2 (09:24→20:54)
[2021-03-12] MEDS: ASPIRIN 81 MG ECTAB PO SCH (09:25)
[2021-03-12] MEDS: GABAPENTIN 800 MG TAB PO SCH ×3 (09:25→20:53)
[2021-03-12] MEDS: MAGNESIUM OXIDE 400 MG TAB PO SCH ×2 (09:25→20:53)
[2021-03-12] MEDS: FOLIC ACID 1 MG TAB PO SCH (09:25)
[2021-03-12] MEDS: METOPROLOL SUCC 25MG EXT REL TAB PO SCH (09:26)
[2021-03-12] MEDS: FUROSEMIDE 40 MG TAB PO SCH ×2 (09:26→18:13)
[2021-03-12] MEDS: [UNRECOGNIZED DRUG - REMARK] PO SCH (09:28)
[2021-03-12] MEDS: INSULIN ASPART 100 UNITS/ML 3 ML PEN SC SCH ×4 (09:29→20:51)
[2021-03-12] MEDS: DOCUSATE SODIUM 100 MG CAP PO SCH ×2 (09:40→20:59)
[2021-03-12] MEDS: levoFLOXacin 750 MG TAB PO SCH (13:10)
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
[2021-03-12] MEDS: CITALOPRAM 40 MG TAB PO SCH (20:54)
[2021-03-12] MEDS: ENOXAPARIN INJ 40 MG/0.4 ML SYR SQ SCH (20:55)
[2021-03-12] MEDS: ATORVASTATIN 40 MG TAB PO SCH (20:55)
[2021-03-13] MEDS: oxyCODONE HCL IR 5 MG TAB (IMMEDIATE RELEASE) PO PRN (00:14)
[2021-03-13] MEDS: PANTOprazole 40 MG TAB PO SCH (05:42)
[2021-03-13] MEDS: predniSONE 2.5 MG TAB PO SCH (08:12)
[2021-03-13] MEDS: DOCUSATE SODIUM 100 MG CAP PO SCH ×2 (08:12→20:39)
[2021-03-13] MEDS: METOPROLOL SUCC 25MG EXT REL TAB PO SCH (08:13)
[2021-03-13] MEDS: allopurinoL 300 MG TAB PO SCH (08:13)
[2021-03-13] MEDS: FUROSEMIDE 40 MG TAB PO SCH ×2 (08:13→17:18)
[2021-03-13] MEDS: FOLIC ACID 1 MG TAB PO SCH (08:13)
[2021-03-13] MEDS: SPIRONOLACTONE 100 MG TAB PO SCH ×2 (08:13→17:18)
[2021-03-13] MEDS: MULTIVITAMIN TAB PO SCH (08:14)
[2021-03-13] MEDS: MAGNESIUM OXIDE 400 MG TAB PO SCH ×2 (08:14→21:26)
[2021-03-13] MEDS: GABAPENTIN 800 MG TAB PO SCH ×3 (08:14→20:39)
[2021-03-13] MEDS: ASPIRIN 81 MG ECTAB PO SCH (08:14)
[2021-03-13] MEDS: FERROUS GLUCONATE 324 MG TAB PO SCH ×2 (08:14→20:39)
[2021-03-13] MEDS: [UNRECOGNIZED DRUG - REMARK] PO SCH (08:15)
[2021-03-13] MEDS: INSULIN ASPART 100 UNITS/ML 3 ML PEN SC SCH ×4 (09:08→20:49)
--- NOTE | 2021-03-13 12:26 | Electrocardiogram Report ---
Test Reason : Blood Pressure : / mmHG Vent. Rate : 061 BPM Atrial Rate : 061 BPM P-R Int : 194 ms QRS Dur : 128 ms QT Int : 490 ms P-R-T Axes : 076 -57 069 degrees QTc Int : 493 ms Normal sinus rhythm Left axis deviation Non-specific intra-ventricular conduction block Inferior infarct , age undetermined Possible Anterolateral infarct (cited on or before 09-MAR-2021) Abnormal ECG When compared with ECG of 09-MAR-2021 05:42, Premature ventricular complexes are no longer Present Questionable change in initial forces of Lateral leads Nonspecific T wave abnormality has replaced inverted T waves in Anterior leads Nonspecific T wave abnormality now evident in Lateral leads Confirmed by Pee Muñiz ([id number]) on 03/13/2021 12:26:40 PM Referred By: REFERRED SELF Confirmed By:Pee Muñiz
[2021-03-13] MEDS: ATORVASTATIN 40 MG TAB PO SCH (20:40)
[2021-03-13] MEDS: CITALOPRAM 40 MG TAB PO SCH (20:40)
[2021-03-13] MEDS: ENOXAPARIN INJ 40 MG/0.4 ML SYR SQ SCH (21:26)
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
[2021-03-14] MEDS: PANTOprazole 40 MG TAB PO SCH ×2 (06:20→06:32)
[2021-03-14 08:06] LABS: Creatinine Clr Calc Pharmacy 28.6 ml/min; Est GFR (African American) 36.3; Est GFR (Non-African American) 31.4
[2021-03-14] MEDS: FERROUS GLUCONATE 324 MG TAB PO SCH (08:11)
[2021-03-14] MEDS: FOLIC ACID 1 MG TAB PO SCH (08:11)
[2021-03-14] MEDS: GABAPENTIN 800 MG TAB PO SCH ×2 (08:11→13:50)
[2021-03-14] MEDS: MAGNESIUM OXIDE 400 MG TAB PO SCH (08:11)
[2021-03-14] MEDS: METOPROLOL SUCC 25MG EXT REL TAB PO SCH (08:12)
[2021-03-14] MEDS: SPIRONOLACTONE 100 MG TAB PO SCH (08:12)
[2021-03-14] MEDS: ASPIRIN 81 MG ECTAB PO SCH (08:12)
[2021-03-14] MEDS: allopurinoL 300 MG TAB PO SCH (08:13)
[2021-03-14] MEDS: MULTIVITAMIN TAB PO SCH (08:13)
[2021-03-14] MEDS: FUROSEMIDE 40 MG TAB PO SCH (08:13)
[2021-03-14] MEDS: predniSONE 2.5 MG TAB PO SCH (08:13)
[2021-03-14] MEDS: [UNRECOGNIZED DRUG - REMARK] PO SCH (08:14)
[2021-03-14] MEDS: DOCUSATE SODIUM 100 MG CAP PO SCH (08:15)
[2021-03-14] MEDS: INSULIN ASPART 100 UNITS/ML 3 ML PEN SC SCH ×2 (08:17→12:11)
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
[2021-03-14] MEDS: levoFLOXacin 750 MG TAB PO SCH (13:50)
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
--- NOTE | 2021-03-26 09:11 | Coding Query ---
CODING QUERY To promote full compliance with coding requirements relating to patient care, provider participation is requested in all cases of lead refinery supervisor uncertainty. Please assist us with the question(s) below: Coding Question(s): Patient admitted with gram neg Sepsis,urinary source. Progress notes document (03/07 pn) encephalopathy as well as ED notes . Please document, if known or suspected, the etiology of the encephalopathy . Thanks for your help. Omari Marx [facility] Physician's Response(s): I could not fine the Encephalopathy noted in the chart. Not in my progress note and not in H&P. I can not put this in the chart. Principal Diagnosis: "that condition established after study, to be chiefly responsible for occasioning the admission of the patient to the hospital for care." Co-Existing Principal Diagnosis: "when two or more diagnoses equally meet the criteria for principal diagnosis as determined by the circumstances of admission, diagnostic work up, and/or therapy provided, and the Alphabetic Index, Tabular List, or another coding guideline does not provide sequencing direction, any one of the diagnoses may be sequenced first." "When the physician has documented what appears to be a current diagnosis in the body of the record, but has not included the diagnosis in the final diagnostic statement, the physician should be asked whether the diagnosis should be added." ([facility] 2 QTR90. p3-4) LAZARO
== END 2021-03-14 16:47 | DRG 872 ==
LOC: ED 04:16 → SUATTDRO 07:01 → 2S 07:01 → 3N 03-10 13:42

== ENCOUNTER 2022-02-28 12:19 | Inpatient (IN) ==
--- NOTE | 2022-02-28 12:39 | Emergency Department Note ---
Impression & Plan Pulmonary edema, Elevated troponin ADMIT ED Provider Note HPI: The patient is a 71-year-old female with history of COPD, combined systolic and diastolic heart failure, stage III chronic kidney disease, type 2 diabetes, presents the emergency department with chief complaint of shortness of breath for the past 2 weeks. Patient states that she was seen by her outpatient providers today and advised to come to the emergency department given her symptoms, she is also had some increased redness in her right lower extremity. 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 On arrival to the ED the patient is hemodynamically stable, she is saturating well on room air, she is otherwise in no acute distress on my initial assessment. ROS: -Pulmonary: Dyspnea the past 2 weeks *10 point review systems was conducted and is otherwise negative unless stated above *Outpatient medications and allergy history reviewed PE: General: Alert, NAD HEENT: Normocephalic, atraumatic Eyes: Extraocular eye movement is intact, no scleral erythema Pulmonary: Clear to auscultation bilaterally, no wheezing Cardio: Regular rate and rhythm GI: Abdomen is soft, nontender : No suprapubic tenderness MSK: No evidence of trauma or malformation of the extremities, no edema, status post left-sided BKA Skin: No evidence of rash, there is some mild to moderate erythema of the bilateral lower extremities without any crepitus, no purulent drainage, no bl ister formation Neuro: Alert, no focal deficits Psychiatric: Cooperative youth nutritional monitor: - An order was placed for continuous cardiac monitoring - Patient was noted to be in rhythm with rate of 80 EKG: Rate: 75 Rhythm: Sinus rhythm Intervals: AK interval prolonged at 248 ms, otherwise within normal limits ST changes: No ST elevation Time: 11/20/2001 Medical Decision Making: Patient presented to the emergency department with a chief complaint of dyspnea, chest x-ray shows evidence of pulmonary edema, high-sensitivity troponin is noted to be elevated at 41.4, BNP is also elevated greater than 2500, I suspect that the patient's symptoms are secondary to fluid overload/acute on chronic CHF exacerbation. She does not have a fever, she does not have any evidence of pneumonia on chest x-ray, COVID-19 testing and influenza testing are negative. Patient was given IV Lasix here in the ED, on my reassessment she states that she does not feel well enough for discharge home, in addition her second troponin is up trended slightly to 42.5, she denies any chest pain. I discussed the above findings with the on-call midlevel provider for [facility] and the patient was accepted to a telemetry bed for further management of acute on chronic CHF exacerbation with pulmonary edema and concern for fluid overload given her dyspnea. Patient was in agreement for admission and she was admitted in stable condition. Diagnosis: 1. Dyspnea 2. Pulmonary edema, acute 3. Elevated BNP level 4. Elevated high-sensitivity troponin 5. Acute on chronic renal failure Disposition: Admission John Reyes DO Emergency Medicine Past Med/Surg History Medical History (Updated 02/28/22 @ 18:29 by John Reyes DO) Acid reflux Anemia Aortic stenosis Aortic valve regurgitation Asthma Bladder cancer Bladder mass s/p resection 10/02/[address] [facility] by Dr. Everett CAD (coronary artery disease) stent x1 (2004) Carotid artery disease s/p R/L carotid endarterectomy (several years ago) Charcot foot due to diabetes mellitus Chronic combined systolic and diastolic CHF (congestive heart failure) Cirrhosis of liver CKD (chronic kidney disease), stage III COPD (chronic obstructive pulmonary disease) COVID-19 Depression Diabetes mellitus type 2, diet-controlled Diabetic peripheral neuropathy Gout H/O [id number] deficiency History of alcohol abuse History of anxiety History of bladder cancer dx 09/2020; treated surgically + BCG treatment (LAST BCG TREATMENT "A COUPLE DAYS AGO") History of depression History of endometriosis "Stage I, grade I" History of DE (myocardial infarction) History of MRSA infection History of sleep apnea No device HTN (hypertension) Hypercholesteremia SARANYA (iron deficiency anemia) Ischemic cardiomyopathy Mitral regurgitation HINKLE (nonalcoholic steatohepatitis) PAD (peripheral artery disease) Pressure ulcer of below knee amputation stump Rheumatoid arthritis 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) Valvular heart disease VHD (valvular heart disease) Surgical History History of arthroscopy of left shoulder History of bilateral carotid endarterectomy History of bladder surgery Transurethral Resection Bladder Tumor Large, With multiple fulguration History of cardiac cath stent x1 (2004) History of cholecystectomy History of colonoscopy History of cystoscopy History of hysterectomy History of left below knee amputation + prosthesis History of lumbar discectomy History of reverse total replacement of right shoulder joint Reverse total shoulder arthroplasty (01/30/2021): Grade I, MAC 3, ETT 7.0 + PNB at [facility] S/P debridement LEFT BKA WOUND (WOUND CLINIC PATIENT) S/P vascular surgery Right common femoral endarterectomy, right femoral and posterior tibial bypass (11/02/2020) Family History Father Family history of diabetes mellitus Family history of COPD (chronic obstructive pulmonary disease) Sister Breast cancer Other No family history of adverse response to anesthesia Social History Smoking Status: Current every day smoker Tobacco Type: Cigarettes Years Smoked: 54; Cigarettes Per Day: 3 CIG DAILY; Second Hand Exposure: Yes; Hx Alcohol Use: No Hx Substance Use: No Preferred Language: Estonian Communication Ability: Effective Visual Impairment: Limited Hearing Ability: Normal Autocutter Required: No Beliefs That Will Affect Care: Scientology Scientology Beliefs: Scientologist, [place] milagro marital status: Current Living Situation: Spouse Current Living Situation Comment: [employer] NEEDED current occupational status: disabled Feels Safe at Home: Yes Safety Concerns Comment: emotional/mental but not physical per patient. Assistive Devices: Denture - Upper, Denture - Lower, Glasses, Prosthesis, Walker and Wheelchair Allergies Allergies Allergy/AdvReac Type Severity Reaction Status Date / Time Penicillins Allergy Intermediate Hives, Verified 11/19/21 15:03 dyspepsia, diarrhea Iodinated Contrast Media AdvReac Intermediate Severe Verified 02/28/22 16:41 [Iodinated Contrast- Oral vomiting and IV Dye] oxycodone [From Percocet] AdvReac Intermediate Vomiting Verified 02/28/22 16:41 penicillin G AdvReac Intermediate n/v Verified 02/28/22 16:40 Home Meds Home Medications Medication Instructions Recorded Confirmed gabapentin 800 mg tablet 800 mg PO TID tab 07/22/18 02/28/22 atorvastatin 80 mg tablet 80 mg PO HS 03/01/19 02/28/22 ferrous gluconate 324 mg (38 mg 324 mg PO TID 03/01/19 02/28/22 iron) tablet folic acid 1 mg tablet 1 mg PO QAM 03/01/19 02/28/22 metoprolol succinate 25 mg 12.5 mg PO DAILY@1530 04/15/19 04/14/22 tablet,extended release 24 hr omeprazole 40 mg capsule,delayed 40 mg PO DAILYBB 03/01/19 02/28/22 release nitroglycerin 0.4 mg sublingual 0.4 mg SUBLINGUAL DIRECTED PRN 04/05/19 02/28/22 tablet allopurinol 300 mg tablet 300 mg PO QAM 01/03/20 02/28/22 furosemide 40 mg tablet (Lasix) 40 mg PO BID 07/21/20 02/28/22 spironolactone 100 mg tablet 100 mg PO QAM 07/21/20 02/28/22 (Aldactone) aspirin 81 mg tablet,delayed 81 mg PO QAM 09/19/20 02/28/22 release (Aspirin Low Dose) citalopram 40 mg tablet 40 mg PO HS 09/19/20 02/28/22 albuterol sulfate 90 mcg/actuation 2 puff INHALATION QID PRN 10/08/21 02/28/22 aerosol inhaler methocarbamol 500 mg tablet 500 mg PO BID 10/08/21 02/28/22 solifenacin 5 mg tablet (Vesicare) 5 mg PO QAM 10/24/21 02/28/22 ipratropium 0.5 mg-albuterol 3 mg 3 ml INHALATION Q6H PRN 11/19/21 02/28/22 (2.5 mg base)/3 mL nebulization soln fluticasone propionate 50 1 spray INTRANASAL DAILY 02/28/22 02/28/22 mcg/actuation nasal spray,suspension melatonin 1 mg tablet 1 mg PO HS 02/28/22 02/28/22 multivitamin with minerals 1 tab PO DAILY 02/28/22 02/28/22 (Multiple Vitamin-Minerals) rifaximin 550 mg tablet (Xifaxan) 550 mg PO AMHS 02/28/22 02/28/22 vitamin B complex 1 tab PO QAM 02/28/22 02/28/22 Results & Data (ED) Vital Signs Vital Signs - 24 hr 02/28/22 12:41 02/28/22 12:46 02/28/22 13:00 Temperature 37 C Temperature Source Oral Pulse Rate 74 115 H Pulse Rate [Apical] Pulse Rate from SpO2 Sensor 72 Respiratory Rate 18 18 Respiratory Effort / Characteristics Non-Labored Spontaneous Respiratory Depth Normal Respiratory Pattern Regular Blood Pressure 117/65 114/99 Blood Pressure [Right Arm] Blood Pressure Mean 82 104 Blood Pressure Mean [Right Arm] Pulse Oximetry 93 92 Oxygen Delivery Method Room Air Room Air Room Air Sepsis Recent Fever Within 48 Hours No Sepsis New/Unexplained Change in Mental Status No Sepsis Action Taken by Nursing No Action Required 02/28/22 13:30 02/28/22 14:46 02/28/22 14:50 Temperature Temperature Source Pulse Rate Pulse Rate [Apical] 75 Pulse Rate from SpO2 Sensor 75 77 Respiratory Rate 14 Respiratory Effort / Characteristics Respiratory Depth Respiratory Pattern Blood Pressure Blood Pressure [Right Arm] 136/72 Blood Pressure Mean Blood Pressure Mean [Right Arm] 93 Pulse Oximetry 94 97 Oxygen Delivery Method Room Air Sepsis Recent Fever Within 48 Hours Sepsis New/Unexplained Change in Mental Status Sepsis Action Taken by Nursing 02/28/22 15:00 02/28/22 16:00 02/28/22 16:06 Temperature Temperature Source Pulse Rate 79 Pulse Rate [Apical] Pulse Rate from SpO2 Sensor Respiratory Rate 16 Respiratory Effort / Characteristics Respiratory Depth Respiratory Pattern Blood Pressure 122/61 128/67 Blood Pressure [Right Arm] Blood Pressure Mean 81 87 Blood Pressure Mean [Right Arm] Pulse Oximetry Oxygen Delivery Method Sepsis Recent Fever Within 48 Hours Sepsis New/Unexplained Change in Mental Status Sepsis Action Taken by Nursing 02/28/22 16:30 Temperature Temperature Source Pulse Rate 72 Pulse Rate [Apical] Pulse Rate from SpO2 Sensor Respiratory Rate 18 Respiratory Effort / Characteristics Respiratory Depth Respiratory Pattern Blood Pressure Blood Pressure [Right Arm] Blood Pressure Mean Blood Pressure Mean [Right Arm] Pulse Oximetry 92 Oxygen Delivery Method Sepsis Recent Fever Within 48 Hours Sepsis New/Unexplained Change in Mental Status Sepsis Action Taken by Nursing Laboratory Data Result diagrams: 02/28/22 12:54 02/28/22 12:54 Lab Results 02/28/22 02/28/22 02/28/22 Range/Units 12:37 12:54 12:54 WBC 6.46 (4.8-10.8) K/uL RBC 4.93 (4.2-5.4) M/uL Hgb 13.7 (12.0-16.0) g/dL Hct 42.8 (37-47) % MCV 86.8 (80-100) fL MCH 27.8 (25-34) pg MCHC 32.0 (32-36) g/dL RDW Std Deviation 59.6 H (36.4-46.3) fL RDW Coeff of Tiburcio 19.7 H (11.5-14.5) % Plt Count 106 L (130-400) K/uL MPV 10.8 H (7.4-10.4) fL Immature Gran % (Auto) 0.2 % Neut % (Auto) 90.4 % Lymph % (Auto) 5.6 % [place] % (Auto) 3.6 % Eos % (Auto) 0.0 % Baso % (Auto) 0.2 % Neut # (Auto) 5.85 (1.4-6.5) K/uL Lymph # (Auto) 0.36 L (1.2-3.4) K/uL [place] # (Auto) 0.23 (0.11-0.59) K/uL Eos # (Auto) 0.00 (0-0.5) K/uL Baso # (Auto) 0.01 (0-0.2) K/uL Immature Gran # (Auto) 0.01 (0.00-0.02) K/uL Platelet Estimate Decreased L (Normal) VBG pH (7.36-7.41) VBG pCO2 (38-50) mmHg VBG pO2 mmHg VBG HCO3 mmol/L VBG O2 Saturation % VBG Base Excess mEq/L Barometric Pressure mm/Hg Sodium (136-145) mmol/L Potassium (3.5-5.1) mmol/L Chloride (98-107) mmol/L Carbon Dioxide (21-32) mmol/L Anion Gap (3-11) BUN (6-23) mg/dl Creatinine (0.6-1.2) mg/dl Est Cr Clr Drug Dosing ml/min Est GFR ( Amer) ml/min Est GFR (Non-Af Amer) ml/min BUN/Creatinine Ratio (10-20) Glucose (70-99(Fasting)) mg/dl Calcium (8.5-10.1) mg/dl Total Bilirubin (0.2-1.0) mg/dl AST (13-39) U/L ALT (7-52) U/L Alkaline Phosphatase (34-104) U/L Troponin I High Sens 41.4 H (0-14) pg/ml B-Natriuretic Peptide (0-100) pg/ml Total Protein (6.0-8.3) gm/dl Albumin (3.4-5.0) gm/dl Globulin (2.5-4.0) gm/dl Albumin/Globulin Ratio (0.9-2) Urine Color Yellow Urine Appearance Clear (Clear) Urine pH 5.5 (4.5-7.5) Ur Specific [place] 1.015 (1.000-1.030) Urine Protein Negative (Negative) Urine Glucose (UA) Negative (Negative) Urine Ketones Negative (Negative) Urine Blood Negative (Negative) Urine Nitrite Negative (Negative) Urine Bilirubin Negative (Negative) Urine Urobilinogen Negative (Negative) Ur Leukocyte Esterase Negative (Negative) SARS-CoV-2 (PCR) (Negative) Influenza Type A (PCR) (Neg) Influenza Type B (PCR) (Neg) RSV (RT-PCR) (Neg) 02/28/22 02/28/22 02/28/22 Range/Units 12:54 12:54 12:54 WBC (4.8-10.8) K/uL RBC (4.2-5.4) M/uL Hgb (12.0-16.0) g/dL Hct (37-47) % MCV (80-100) fL MCH (25-34) pg MCHC (32-36) g/dL RDW Std Deviation (36.4-46.3) fL RDW Coeff of Tiburcio (11.5-14.5) % Plt Count (130-400) K/uL MPV (7.4-10.4) fL Immature Gran % (Auto) % Neut % (Auto) % Lymph % (Auto) % [place] % (Auto) % Eos % (Auto) % Baso % (Auto) % Neut # (Auto) (1.4-6.5) K/uL Lymph # (Auto) (1.2-3.4) K/uL [place] # (Auto) (0.11-0.59) K/uL Eos # (Auto) (0-0.5) K/uL Baso # (Auto) (0-0.2) K/uL Immature Gran # (Auto) (0.00-0.02) K/uL Platelet Estimate (Normal) VBG pH 7.35 L (7.36-7.41) VBG pCO2 53 H (38-50) mmHg VBG pO2 35 mmHg VBG HCO3 29 mmol/L VBG O2 Saturation 62.5 % VBG Base Excess 2.1 mEq/L Barometric Pressure 728.0 mm/Hg Sodium 130 L (136-145) mmol/L Potassium 4.6 (3.5-5.1) mmol/L Chloride 92 L (98-107) mmol/L Carbon Dioxide 28 (21-32) mmol/L Anion Gap 10 (3-11) BUN 57 H (6-23) mg/dl Creatinine 1.52 H (0.6-1.2) mg/dl Est Cr Clr Drug Dosing 32.2 ml/min Est GFR ( Amer) 39.6 ml/min Est GFR (Non-Af Amer) 34.1 ml/min BUN/Creatinine Ratio 37.5 H (10-20) Glucose 90 (70-99(Fasting)) mg/dl Calcium 9.4 (8.5-10.1) mg/dl Total Bilirubin 1.3 H (0.2-1.0) mg/dl AST 28 (13-39) U/L ALT 21 (7-52) U/L Alkaline Phosphatase 259 H (34-104) U/L Troponin I High Sens (0-14) pg/ml B-Natriuretic Peptide 2529 H (0-100) pg/ml Total Protein 6.6 (6.0-8.3) gm/dl Albumin 3.7 (3.4-5.0) gm/dl Globulin 2.9 (2.5-4.0) gm/dl Albumin/Globulin Ratio 1.3 (0.9-2) Urine Color Urine Appearance (Clear) Urine pH (4.5-7.5) Ur Specific [place] (1.000-1.030) Urine Protein (Negative) Urine Glucose (UA) (Negative) Urine Ketones (Negative) Urine Blood (Negative) Urine Nitrite (Negative) Urine Bilirubin (Negative) Urine Urobilinogen (Negative) Ur Leukocyte Esterase (Negative) SARS-CoV-2 (PCR) (Negative) Influenza Type A (PCR) (Neg) Influenza Type B (PCR) (Neg) RSV (RT-PCR) (Neg) 02/28/22 02/28/22 Range/Units 16:09 16:43 WBC (4.8-10.8) K/uL RBC (4.2-5.4) M/uL Hgb (12.0-16.0) g/dL Hct (37-47) % MCV (80-100) fL MCH (25-34) pg MCHC (32-36) g/dL RDW Std Deviation (36.4-46.3) fL RDW Coeff of Tiburcio (11.5-14.5) % Plt Count (130-400) K/uL MPV (7.4-10.4) fL Immature Gran % (Auto) % Neut % (Auto) % Lymph % (Auto) % [place] % (Auto) % Eos % (Auto) % Baso % (Auto) % Neut # (Auto) (1.4-6.5) K/uL Lymph # (Auto) (1.2-3.4) K/uL [place] # (Auto) (0.11-0.59) K/uL Eos # (Auto) (0-0.5) K/uL Baso # (Auto) (0-0.2) K/uL Immature Gran # (Auto) (0.00-0.02) K/uL Platelet Estimate (Normal) VBG pH (7.36-7.41) VBG pCO2 (38-50) mmHg VBG pO2 mmHg VBG HCO3 mmol/L VBG O2 Saturation % VBG Base Excess mEq/L Barometric Pressure mm/Hg Sodium (136-145) mmol/L Potassium (3.5-5.1) mmol/L Chloride (98-107) mmol/L Carbon Dioxide (21-32) mmol/L Anion Gap (3-11) BUN (6-23) mg/dl Creatinine (0.6-1.2) mg/dl Est Cr Clr Drug Dosing ml/min Est GFR ( Amer) ml/min Est GFR (Non-Af Amer) ml/min BUN/Creatinine Ratio (10-20) Glucose (70-99(Fasting)) mg/dl Calcium (8.5-10.1) mg/dl Total Bilirubin (0.2-1.0) mg/dl AST (13-39) U/L ALT (7-52) U/L Alkaline Phosphatase (34-104) U/L Troponin I High Sens 42.5 H (0-14) pg/ml B-Natriuretic Peptide (0-100) pg/ml Total Protein (6.0-8.3) gm/dl Albumin (3.4-5.0) gm/dl Globulin (2.5-4.0) gm/dl Albumin/Globulin Ratio (0.9-2) Urine Color Urine Appearance (Clear) Urine pH (4.5-7.5) Ur Specific [place] (1.000-1.030) Urine Protein (Negative) Urine Glucose (UA) (Negative) Urine Ketones (Negative) Urine Blood (Negative) Urine Nitrite (Negative) Urine Bilirubin (Negative) Urine Urobilinogen (Negative) Ur Leukocyte Esterase (Negative) SARS-CoV-2 (PCR) NEGATIVE (Negative) Influenza Type A (PCR) Negative (Neg) Influenza Type B (PCR) Negative (Neg) RSV (RT-PCR) Negative (Neg) Administered Medications Discontinued Medications Furosemide (Furosemide 40 Mg/4 Ml Vial) 40 mg IV ONE ONE Stop: 02/28/22 16:01 Last Admin: 02/28/22 16:33 Dose: 40 mg Documented by: [id number] Imaging Data Radiologist's Impression: Chest X-Ray 02/28/22 12:32 XR chest 1V portable CLINICAL HISTORY: Dyspnea. COMPARISON STUDY: 11/19/2021 TECHNIQUE: 1 view of the chest FINDINGS: Single frontal view of the chest demonstrates the heart size to be moderately e nlarged. Compared to the previous examination, there is evidence for mild central vascular congestion. No peripheral interstitial edema is seen. There is no evidence for pleural effusion. No confluent alveolar opacities are identified. There is no acute osseous pathology. IMPRESSION: 1. Cardiomegaly with interval development of mild central vascular congestion suspicious for early cardiac decompensation. ACT 112: Negative or not required by law. Electronically signed by: Darius Duff M.D. 02/28/2022 1:19 PM Venous Doppler Study 02/28/22 12:39 US venous doppler LE RT CLINICAL HISTORY: Right leg pain and swelling . Diffuse edema COMPARISON: None available at the time of this dictation. TECHNIQUE: Right lower extremity real-time compression venous ultrasound with Color Doppler imaging. Utilizing real-time ultrasonic imaging multiple real time high-resolution ultrasonic images with compression and noncompression maneuvers of the deep venous system in addition to color doppler imaging were performed from the common femoral vein through the proximal calf veins. FINDINGS: Currently there is normal compressibility of the deep venous system from the common femoral vein through the proximal calf veins. No current evidence of acute thrombosis is identified. Impression: No evidence of deep venous thrombus. Swelling and edema is present. The patient has a greater saphenous vein graft that appears patent. ACT 112: Negative or not required by law. Electronically signed by: Darius Duff M.D. 02/28/2022 2:49 PM Abdomen/Pelvis CT 02/28/22 13:[address] WITHOUT CONTRAST CT DOSE: 910.36 mGycm HISTORY: Acute nausea and vomiting with ascites bloating, nausea, recent ascites TECHNIQUE: Multiaxial CT images of the abdomen and pelvis were performed without contrast. A dose lowering technique was utilized adhering to the principles of ALARA. COMPARISON STUDY: CT abdomen and pelvis 11/19/2021, chest CT 03/07/2021. FINDINGS: Cardiomegaly with mitral annular and coronary artery calcifications. Small pleural effusions. Subsegmental dependent bibasilar groundglass densities suggest atelectasis. A mild pneumonitis would be difficult to exclude. No pneumatosis or pneumoperitoneum. Hepatosplenomegaly with cirrhosis. Anasarca with small volume of abdominal pelvic ascites, increased from the prior study. Cholecystectomy. No hepatic mass identified. Moderate pancreatic atrophy. The adrenal glands are within normal limits. Cysts of the kidneys are redemonstrated measuring up to 3.4 cm on the left and 3.8 cm on the right. Punctate nonobstructing calculus of the interpolar right kidney. Punctate nonobstructing calculus of the inferior pole left kidney. No ureteral calculi or hydronephrosis. Unchanged urinary bladder wall thickening and trabeculation. The uterus appears to be surgically absent. Extensive atherosclerosis of the aorta and branch vessels likely with a component of stenosis within the proximal superior mesenteric artery. Partially imaged right femoral arterial stent. No lymphadenopathy. No bowel obstruction. Mild rectal wall thickening. Colonic diverticulosis without acute diverticulitis. The appendix is reportedly surgically absent. Degenerative changes of the spine, pelvis and hips. There is no destructive bone lesion identified. Thoracolumbar sigmoidal scoliosis. IMPRESSION: 1. Nonspecific rectal wall thickening may be secondary to partial distention versus a nonspecific proctitis. Correlate clinically. 2. No bowel obstruction or pneumoperitoneum. 3. Hepatosplenomegaly with cirrhosis, small volume of abdominal pelvic ascites, anasarca with small pleural effusions. 4. Nonobstructing bilateral nephrolithiasis. 5. Colonic diverticulosis. 6. Additional findings as above. ACT 112: Negative or not required by law. The above report was generated using voice recognition software. It may contain grammatical, syntax or spelling errors. Electronically signed by: Shailesh Salgado M.D. 02/28/2022 2:59 PM Discharge Plan Visit Data Chief Complaint: Shortness of Breath/Dyspnea ED Provider: John Reyes Discharge Problem: Pulmonary edema, Elevated troponin Forms Stand Alone Forms: [facility] Prescriptions Prescriptions: No Action gabapentin 800 mg tablet 800 mg PO TID RF: 0 nitroglycerin 0.4 mg tablet, sublingual 0.4 mg sublingual DIRECTED PRN (Reason: Chest Pain) RF: 0 allopurinol 300 mg Tablet 300 mg PO QAM RF: 0 atorvastatin 80 mg Tablet 80 mg PO HS RF: 0 omeprazole 40 mg Capsule,Delayed Release(Dr/Ec) 40 mg PO DAILYBB RF: 0 metoprolol succinate 25 mg Tablet Extended Release 24 Hr 12.5 mg PO DAILY@1530 RF: 0 ferrous gluconate 324 mg (38 mg iron) Tablet 324 mg PO TID RF: 0 folic acid 1 mg Tablet 1 mg PO QAM RF: 0 furosemide [Lasix] 40 mg Tablet 40 mg PO BID RF: 0 spironolactone [Aldactone] 100 mg Tablet 100 mg PO QAM RF: 0 citalopram 40 mg tablet 40 mg PO HS RF: 0 aspirin [Aspirin Low Dose] 81 mg Tablet,Delayed Release (Dr/Ec) 81 mg PO QAM RF: 0 solifenacin [Vesicare] 5 mg tablet 5 mg PO QAM RF: 0 ipratropium-albuterol 0.5 mg-3 mg(2.5 mg base)/3 mL Solution For Nebulization 3 ml INHALATION Q6H PRN (Reason: Shortness Of Breath) RF: 0 Xifaxan 550 mg tablet 550 mg PO AMHS RF: 0 vitamin B complex Tablet 1 tab PO QAM RF: 0 melatonin 1 mg Tablet 1 mg PO HS RF: 0 Multiple Vitamin-Minerals Tablet 1 tab PO DAILY RF: 0 fluticasone propionate [Flonase] 50 mcg/actuation [place],Suspension 1 spray INTRANASAL DAILY RF: 0 albuterol sulfate 90 mcg/actuation HFA aerosol inhaler 2 puff INHALATION QID PRN (Reason: Shortness Of Breath Or Wheezing) RF: 0 methocarbamol 500 mg tablet 500 mg PO BID RF: 0 Referrals Referrals: Chadd Dudley MD [Primary Care Provider] - Discharge Problem: Pulmonary edema Qualifiers: Chronicity: acute Qualified Code(s): J81.0 - Acute pulmonary edema
[2022-02-28 12:59] LABS: Appearance Urine Clear (Clear); Bilirubin Urine Negative (Negative); Blood Urine Negative (Negative); Color Urine Yellow; Glucose Urine UA Negative (Negative); Ketones Urine Negative (Negative); Leukocyte Esterase Urine Negative (Negative); Nitrite Urine Negative (Negative); Protein Urine Negative (Negative); Specific Gravity Urine 1.015 (1.000-1.030); Urobilinogen Urine Negative (Negative); pH Urine 5.5 (4.5-7.5)
[2022-02-28 13:15] LABS: Base Excess VBG 2.1 mEq/L; Oxygen Saturation VBG 62.5 %; pH VBG 7.35 (7.36-7.41)
--- NOTE | 2022-02-28 13:20 | XRay Report ---
XR chest 1V portable CLINICAL HISTORY: Dyspnea. COMPARISON STUDY: 11/19/2021 TECHNIQUE: 1 view of the chest FINDINGS: Single frontal view of the chest demonstrates the heart size to be moderately enlarged. Compared to t he previous examination, there is evidence for mild central vascular congestion. No peripheral inters titial edema is seen. There is no evidence for pleural effusion. No confluent alveolar opacities are identified. There is no acute osseous pathology. IMPRESSION: 1. Cardiomegaly with interval development of mild central vascular congestion suspicious for early ca rdiac decompensation. ACT 112: Negative or not required by law. Electronically signed by: Darius Duff M.D. 02/28/2022 1:19 PM
[2022-02-28 13:34] LABS: Hematocrit (blood only) 42.8 % (37-47); Hemoglobin 13.7 g/dL (12.0-16.0); Mean Corpuscular Hemoglobin 27.8 pg (25-34); Mean Corpuscular Volume 86.8 fL (80-100); RDW Coefficient of Variation 19.7 % (11.5-14.5); RDW Standard Deviation 59.6 fL (36.4-46.3); Red Blood Count 4.93 M/uL (4.2-5.4); White Blood Count 6.46 K/uL (4.8-10.8)
[2022-02-28 13:40] LABS: Albumin Globulin Ratio 1.3 (0.9-2); Albumin Level 3.7 gm/dl (3.4-5.0); BUN Creatinine Ratio 37.5 (10-20); Bilirubin,Total 1.3 mg/dl (0.2-1.0); Calcium 9.4 mg/dl (8.5-10.1); Creatinine Clr Calc Pharmacy 32.2 ml/min; Est GFR (African American) 39.6 ml/min; Est GFR (Non-African American) 34.1 ml/min; Globulin 2.9 gm/dl (2.5-4.0); Potassium 4.6 mmol/L (3.5-5.1); Total Protein 6.6 gm/dl (6.0-8.3)
[2022-02-28 13:51] LABS: Basophils # (auto) 0.01 K/uL (0-0.2); Basophils % (auto) 0.2 %; Immature Granulocytes # (auto) 0.01 K/uL (0.00-0.02); Immature Granulocytes % (auto) 0.2 %; Lymphocytes # (auto) 0.36 K/uL (1.2-3.4); Lymphocytes % (auto) 5.6 %; Mean Platelet Volume 10.8 fL (7.4-10.4); Monocytes # (auto) 0.23 K/uL (0.11-0.59); Monocytes % (auto) 3.6 %; Neutrophils # (auto) 5.85 K/uL (1.4-6.5); Neutrophils % (auto) 90.4 %; Platelet Count 106 K/uL (130-400); Platelet Estimate Decreased (Normal)
--- NOTE | 2022-02-28 14:50 | Ultrasound Report ---
US venous doppler LE RT CLINICAL HISTORY: Right leg pain and swelling . Diffuse edema COMPARISON: None available at the time of this dictation. TECHNIQUE: Right lower extremity real-time compression venous ultrasound with Color Doppler imaging. Utilizing real-time ultrasonic imaging multiple real time high-resolution ultrasonic images with comp ression and noncompression maneuvers of the deep venous system in addition to color doppler imaging w ere performed from the common femoral vein through the proximal calf veins. FINDINGS: Currently there is normal compressibility of the deep venous system from the common femoral vein thro ugh the proximal calf veins. No current evidence of acute thrombosis is identified. Impression: No evidence of deep venous thrombus. Swelling and edema is present. The patient has a greater sapheno us vein graft that appears patent. ACT 112: Negative or not required by law. Electronically signed by: Darius Duff M.D. 02/28/2022 2:49 PM
--- NOTE | 2022-02-28 15:01 | CT Scan Report ---
ABDOMEN AND PELVIS CT WITHOUT CONTRAST CT DOSE: 910.36 mGycm HISTORY: Acute nausea and vomiting with ascites bloating, nausea, recent ascites TECHNIQUE: Multiaxial CT images of the abdomen and pelvis were performed without contrast. A dose lo wering technique was utilized adhering to the principles of ALARA. COMPARISON STUDY: CT abdomen and pelvis 11/19/2021, chest CT 03/07/2021. FINDINGS: Cardiomegaly with mitral annular and coronary artery calcifications. Small pleural effusion s. Subsegmental dependent bibasilar groundglass densities suggest atelectasis. A mild pneumonitis wou ld be difficult to exclude. No pneumatosis or pneumoperitoneum. Hepatosplenomegaly with cirrhosis. Anasarca with small volume of abdominal pelvic ascites, increased from the prior study. Cholecystectomy. No hepatic mass identified. Moderate pancreatic atrophy. The a drenal glands are within normal limits. Cysts of the kidneys are redemonstrated measuring up to 3.4 c m on the left and 3.8 cm on the right. Punctate nonobstructing calculus of the interpolar right kidne y. Punctate nonobstructing calculus of the inferior pole left kidney. No ureteral calculi or hydronep hrosis. Unchanged urinary bladder wall thickening and trabeculation. The uterus appears to be surgica lly absent. Extensive atherosclerosis of the aorta and branch vessels likely with a component of sten osis within the proximal superior mesenteric artery. Partially imaged right femoral arterial stent. N o lymphadenopathy. No bowel obstruction. Mild rectal wall thickening. Colonic diverticulosis without acute diverticuliti s. The appendix is reportedly surgically absent. Degenerative changes of the spine, pelvis and hips. There is no destructive bone lesion identified. Thoracolumbar sigmoidal scoliosis. IMPRESSION: 1. Nonspecific rectal wall thickening may be secondary to partial distention versus a nonspecific pro ctitis. Correlate clinically. 2. No bowel obstruction or pneumoperitoneum. 3. Hepatosplenomegaly with cirrhosis, small volume of abdominal pelvic ascites, anasarca with small p leural effusions. 4. Nonobstructing bilateral nephrolithiasis. 5. Colonic diverticulosis. 6. Additional findings as above. ACT 112: Negative or not required by law. The above report was generated using voice recognition software. It may contain grammatical, syntax o r spelling errors. Electronically signed by: Shailesh Salgado M.D. 02/28/2022 2:59 PM
[2022-02-28] MEDS ORDERED: FUROSEMIDE 40 MG/4 ML VIAL IV ONE (16:00)
[2022-02-28 17:52] LABS: Influenza A virus by PCR Negative (Neg); Influenza B virus by PCR Negative (Neg); RSV by PCR Negative (Neg); SARS CoV2 RNA(COVID-19) InHosp NEGATIVE (Negative)
--- NOTE | 2022-02-28 18:09 | History & Physical Report ---
Date of Service February 28, 2022 Assessment & Plan (1) Volume overload: (2) Combined systolic and diastolic congestive heart failure: (3) Valvular heart disease: (4) HINKLE (nonalcoholic steatohepatitis): Plan: Admit to telemetry Patient presenting by referral PCPs office for evaluation of shortness of breath, worsening abdominal distention In the ED, imaging suggestive of volume overload likely multifactorial due to chronic systolic and diastolic CHF, valvular heart disease, HINKLE CT ABD/pelvis showing small bilateral pleural effusions, small amount of ascites, evidence of anasarca S/p Lasix 40 mg IV in the ED, continue with Lasix 40 mg IV twice daily. Contin ue home spironolactone 100 mg daily. Daily weights, strict I's and O's, low Na+ diet, 2 L fluid restriction Echo 09/2020-EF 40 to 45%, grade 2 diastolic dysfunction, moderate aortic stenosis, mild aortic regurgitation, mild mitral stenosis, severe mitral regurgitation Update echo Cardiology consult, input appreciated No signs of hepatic encephalopathy, continue Xifaxan (5) Leg wound, right: Plan: Right anterior swan wound in the setting of severe PVD No signs of sepsis Venous Doppler shows greater saphenous vein graft that appears patent Start doxy and Rocephin Wound culture Wound care nurse consult (6) PAD (peripheral artery disease): (7) CAD (coronary artery disease): (8) Elevated troponin: Plan: HS trop 41.4 --> 42.5 No reports of chest pain Continue ASA, statin, beta-alma (9) Diarrhea: Plan: Seems to be a chronic issue Check C. difficile and stool PCR (10) COPD (chronic obstructive pulmonary disease): Plan: No signs of acute exacerbation (11) CKD (chronic kidney disease), stage III: Plan: Baseline creatinine mid 1's Creatinine 1.5 today (12) Diabetes mellitus type 2, diet-controlled: Plan: Hgb A1c 6.9 10/2021, update with a.m. labs Monitor glucose (13) Bladder cancer: Plan: History of, had screening cystoscopy yesterday that showed recurrence of cancer Patient scheduled for TURBT in March (14) DVT prophylaxis: Plan: SQ heparin History of Present Illness Chief Complaint: Shortness of breath Primary Care Provider: Chadd Dudley MD 71-year-old female PMH Charcot foot, DM type II with peripheral neuropathy, alpha 1 antitrypsin deficiency, COPD, bilateral carotid artery disease, chronic systolic and diastolic CHF with valvular disease, CAD, HTN, HINKLE, bladder cancer s/p tumor resection, vaginal intraepithelial neoplasia 3, PAD, CKD stage III, SARANYA, rheumatoid arthritis, s/p left BKA, depression, tobacco abuse, and other problems listed below who presents the ED for evaluation of shortness of breath. Patient reports over the past few weeks, she has been noting increasing abdominal distention and shortness of breath. She also has noted increasing lower extremity edema and she is unable to wear her left leg prosthesis. Patient denies chest pain. She reports an occasional cough productive for white sputum. States this is chronic for her. Patient reports frequent falls, falling almost daily. Denies striking her head. No associated lightheadedness, dizziness, loss of consciousness. Reports chronic diarrhea that she has had since she was diagnosed with COVID-19. No abdominal pain, nausea, vomiting. Denies fevers and chills. About 10 days ago, patient reports a wound developed on her right anterior swan. There has been some serous and purulent drainage at times. No urinary symptoms. Was seen by urology yesterday for follow-up cystoscopy and was found to have recurrence of her bladder cancer. In the ED, patient is hemodynamically stable, labs are unremarkable/at patient's baseline. CXR shows vascular congestion. CT ABD/pelvis shows a small amount of ascites with anasarca. Patient was given Lasix 40 mg IV. Allergies Allergy/AdvReac Type Severity Reaction Status Date / Time Penicillins Allergy Intermediate Hives, Verified 11/19/21 15:03 dyspepsia, diarrhea Iodinated Contrast Media AdvReac Intermediate Severe Verified 02/28/22 16:41 [Iodinated Contrast- Oral vomiting and IV Dye] oxycodone [From Percocet] AdvReac Intermediate Vomiting Verified 02/28/22 16:41 penicillin G AdvReac Intermediate n/v Verified 02/28/22 16:40 Home Medications Medication Instructions Recorded Confirmed Type gabapentin 800 mg tablet 800 mg PO TID tab 07/22/18 02/28/22 History atorvastatin 80 mg tablet 80 mg PO HS 03/01/19 02/28/22 History ferrous gluconate 324 mg (38 mg 324 mg PO TID 03/01/19 02/28/22 History iron) tablet folic acid 1 mg tablet 1 mg PO QAM 03/01/19 02/28/22 History metoprolol succinate 25 mg 12.5 mg PO DAILY@1530 03/01/19 02/28/22 History tablet,extended release 24 hr omeprazole 40 mg capsule,delayed 40 mg PO DAILYBB 03/01/19 02/28/22 History release nitroglycerin 0.4 mg sublingual 0.4 mg SUBLINGUAL DIRECTED PRN 04/05/19 02/28/22 History tablet allopurinol 300 mg tablet 300 mg PO QAM 01/03/20 02/28/22 History furosemide 40 mg tablet (Lasix) 40 mg PO BID 07/21/20 02/28/22 History spironolactone 100 mg tablet 100 mg PO QAM 07/21/20 02/28/22 History (Aldactone) aspirin 81 mg tablet,delayed 81 mg PO QAM 09/19/20 02/28/22 History release (Aspirin Low Dose) citalopram 40 mg tablet 40 mg PO HS 09/19/20 02/28/22 History albuterol sulfate 90 mcg/actuation 2 puff INHALATION QID PRN 10/08/21 02/28/22 History aerosol inhaler methocarbamol 500 mg tablet 500 mg PO BID 10/08/21 02/28/22 History solifenacin 5 mg tablet (Vesicare) 5 mg PO QAM 10/24/21 02/28/22 History ipratropium 0.5 mg-albuterol 3 mg 3 ml INHALATION Q6H PRN 11/19/21 02/28/22 History (2.5 mg base)/3 mL nebulization soln fluticasone propionate 50 1 spray INTRANASAL DAILY 02/28/22 02/28/22 History mcg/actuation nasal spray,suspension melatonin 1 mg tablet 1 mg PO HS 02/28/22 02/28/22 History multivitamin with minerals 1 tab PO DAILY 02/28/22 02/28/22 History (Multiple Vitamin-Minerals) rifaximin 550 mg tablet (Xifaxan) 550 mg PO AMHS 02/28/22 02/28/22 History vitamin B complex 1 tab PO QAM 02/28/22 02/28/22 History Past Med/Surg History Medical History (Updated 02/28/22 @ 18:29 by John Reyes DO) Acid reflux Anemia Aortic stenosis Aortic valve regurgitation Asthma Bladder cancer Bladder mass s/p resection 10/02/[address] [facility] by Dr. Everett CAD (coronary artery disease) stent x1 (2004) Carotid artery disease s/p R/L carotid endarterectomy (several years ago) Charcot foot due to diabetes mellitus Chronic combined systolic and diastolic CHF (congestive heart failure) Cirrhosis of liver CKD (chronic kidney disease), stage III COPD (chronic obstructive pulmonary disease) COVID-19 Depression Diabetes mellitus type 2, diet-controlled Diabetic peripheral neuropathy Gout H/O [id number] deficiency History of alcohol abuse History of anxiety History of bladder cancer dx 09/2020; treated surgically + BCG treatment (LAST BCG TREATMENT "A COUPLE DAYS AGO") History of depression History of endometriosis "Stage I, grade I" History of AL (myocardial infarction) History of MRSA infection History of sleep apnea No device HTN (hypertension) Hypercholesteremia SARANYA (iron deficiency anemia) Ischemic cardiomyopathy Mitral regurgitation HINKLE (nonalcoholic steatohepatitis) PAD (peripheral artery disease) Pressure ulcer of below knee amputation stump Rheumatoid arthritis 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) Valvular heart disease VHD (valvular heart disease) Surgical History History of arthroscopy of left shoulder History of bilateral carotid endarterectomy History of bladder surgery Transurethral Resection Bladder Tumor Large, With multiple fulguration History of cardiac cath stent x1 (2004) History of cholecystectomy History of colonoscopy History of cystoscopy History of hysterectomy History of left below knee amputation + prosthesis History of lumbar discectomy History of reverse total replacement of right shoulder joint Reverse total shoulder arthroplasty (01/30/2021): Grade I, MAC 3, ETT 7.0 + PNB at [facility] S/P debridement LEFT BKA WOUND (WOUND CLINIC PATIENT) S/P vascular surgery Right common femoral endarterectomy, right femoral and posterior tibial bypass (11/02/2020) Family History Father Family history of diabetes mellitus Family history of COPD (chronic obstructive pulmonary disease) Sister Breast cancer Other No family history of adverse response to anesthesia Social History Smoking Status: Current every day smoker Tobacco Type: Cigarettes Years Smoked: 54; Cigarettes Per Day: 3 CIG DAILY; Second Hand Exposure: Yes; Hx Alcohol Use: No Hx Substance Use: No Preferred Language: Faroese Communication Ability: Effective Visual Impairment: Limited Hearing Ability: Normal Bobbin Marker Required: No Beliefs That Will Affect Care: Episcopalian Episcopalian Beliefs: Sikhism, [place] milagro marital status: Current Living Situation: Spouse Current Living Situation Comment: [employer] DELIV[employer] NEEDED current occupational status: disabled Feels Safe at Home: Yes Safety Concerns Comment: emotional/mental but not physical per patient. Assistive Devices: Denture - Upper, Denture - Lower, Glasses, Prosthesis, Walker and Wheelchair Review of Systems Review of Systems: ROS per HPI, all other systems reviewed and negative Physical Exam Physical Exam: please refer to Dr. Hart's addendum for physical exam Results & Data Results & Data ([facility]) Vital Signs (Past 12 Hours) Vital Signs Temp Pulse Pulse Resp BP BP Pulse Ox 02/28/22 16:30 72 18 92 02/28/22 16:06 79 16 02/28/22 16:00 128/67 02/28/22 15:00 122/61 02/28/22 14:50 97 02/28/22 14:46 75 14 136/72 94 02/28/22 13:00 115 H 18 114/99 92 02/28/22 12:41 37 C 74 18 117/65 93 Laboratory Results Short CBC 02/28/22 Range/Units 12:54 WBC 6.46 (4.8-10.8) K/uL Hgb 13.7 (12.0-16.0) g/dL Hct 42.8 (37-47) % Plt Count 106 L (130-400) K/uL BMP 02/28/22 12:54 Sodium 130 L Potassium 4.6 Chloride 92 L Carbon Dioxide 28 BUN 57 H Creatinine 1.52 H Glucose 90 Calcium 9.4 Liver Function 02/28/22 Range/Units 12:54 Total Bilirubin 1.3 H (0.2-1.0) mg/dl AST 28 (13-39) U/L ALT 21 (7-52) U/L Alkaline Phosphatase 259 H (34-104) U/L Albumin 3.7 (3.4-5.0) gm/dl Urine 02/28/22 Range/Units 12:37 Urine Color Yellow Urine Appearance Clear (Clear) Urine pH 5.5 (4.5-7.5) Ur Specific [place] 1.015 (1.000-1.030) Urine Protein Negative (Negative) Urine Glucose (UA) Negative (Negative) Diagnostic Findings Chest X-Ray 02/28/22 12:32 XR chest 1V portable CLINICAL HISTORY: Dyspnea. COMPARISON STUDY: 11/19/2021 TECHNIQUE: 1 view of the chest FINDINGS: Single frontal view of the chest demonstrates the heart size to be moderately enlarged. Compared to the previous examination, there is evidence for mild central vascular congestion. No peripheral interstitial edema is seen. There is no evidence for pleural effusion. No confluent alveolar opacities are identified. There is no acute osseous pathology. IMPRESSION: 1. Cardiomegaly with interval development of mild central vascular congestion suspicious for early cardiac decompensation. ACT 112: Negative or not required by law. Electronically signed by: Darius Duff M.D. 02/28/2022 1:19 PM Venous Doppler Study 02/28/22 12:39 US venous doppler LE RT CLINICAL HISTORY: Right leg pain and swelling . Diffuse edema COMPARISON: None available at the time of this dictation. TECHNIQUE: Right lower extremity real-time compression venous ultrasound with Color Doppler imaging. Utilizing real-time ultrasonic imaging multiple real time high-resolution ultr asonic images with compression and noncompression maneuvers of the deep venous system in addition to color doppler imaging were performed from the common femoral vein through the proximal calf veins. FINDINGS: Currently there is normal compressibility of the deep venous system from the common femoral vein through the proximal calf veins. No current evidence of acute thrombosis is identified. Impression: No evidence of deep venous thrombus. Swelling and edema is present. The patient has a greater saphenous vein graft that appears patent. ACT 112: Negative or not required by law. Electronically signed by: Darius Duff M.D. 02/28/2022 2:49 PM Abdomen/Pelvis CT 02/28/22 13:[address] WITHOUT CONTRAST CT DOSE: 910.36 mGycm HISTORY: Acute nausea and vomiting with ascites bloating, nausea, recent ascites TECHNIQUE: Multiaxial CT images of the abdomen and pelvis were performed without contrast. A dose lowering technique was utilized adhering to the principles of ALARA. COMPARISON STUDY: CT abdomen and pelvis 11/19/2021, chest CT 03/07/2021. FINDINGS: Cardiomegaly with mitral annular and coronary artery calcifications. S mall pleural effusions. Subsegmental dependent bibasilar groundglass densities suggest atelectasis. A mild pneumonitis would be difficult to exclude. No pneumatosis or pneumoperitoneum. Hepatosplenomegaly with cirrhosis. Anasarca with small volume of abdominal pelvic ascites, increased from the prior study. Cholecystectomy. No hepatic mass identified. Moderate pancreatic atrophy. The adrenal glands are within normal limits. Cysts of the kidneys are redemonstrated measuring up to 3.4 cm on the left and 3.8 cm on the right. Punctate nonobstructing calculus of the interpolar right kidney. Punctate nonobstructing calculus of the inferior pole left kidney. No ureteral calculi or hydronephrosis. Unchanged urinary bladder wall thickening and trabeculation. The uterus appears to be surgically absent. Extensive atherosclerosis of the aorta and branch vessels likely with a component of stenosis within the proximal superior mesenteric artery. Partially imaged right femoral arterial stent. No lymphadenopathy. No bowel obstruction. Mild rectal wall thickening. Colonic diverticulosis without acute diverticulitis. The appendix is reportedly surgically absent. Degenerative changes of the spine, pelvis and hips. There is no destructive bone lesion identified. Thoracolumbar sigmoidal scoliosis. IMPRESSION: 1. Nonspecific rectal wall thickening may be secondary to partial distention versus a nonspecific proctitis. Correlate clinically. 2. No bowel obstruction or pneumoperitoneum. 3. Hepatosplenomegaly with cirrhosis, small volume of abdominal pelvic ascites, anasarca with small pleural effusions. 4. Nonobstructing bilateral nephrolithiasis. 5. Colonic diverticulosis. 6. Additional findings as above. ACT 112: Negative or not required by law. The above report was generated using voice recognition software. It may contain grammatical, syntax or spelling errors. Electronically signed by: Shailesh Salgado M.D. 02/28/2022 2:59 PM Code Status & VTE Plan Code Status Patient is a DNR as per my discussion with her. Patient states that her will be her decision maker in the event she were to be unable to. VTE Prophylaxis Plan VTE Prophylaxis will be ordered: Yes Supervising Physician Co-Signing Physician Notes Patient is a 71-year-old female with multiple comorbidities presents with history of worsening lower extremity edema, shortness of breath over the past few days. She also states having increasing abdominal distention. Reports chronic intermittent dry to productive cough which he attributes to COPD and smoking. Patient states having diarrhea which has been ongoing since COVID-19 infection. She admits to taking her diuretics regularly. Please review HPI for complete details of presentation. Blood pressure platelets 106K, sodium 130, chloride 92, creatinine 1.52, BUN 57, total bilirubin 1.3, alkaline phosphatase 259, troponin 41.4, BNP 2529. Chest x-ray suggestive of cardiomegaly with mild vascular congestion. Venous Doppler showed no DVT. CT abdomen showed rectal wall thickening suggestive of proctitis. Also noted hepatosplenomegaly with cirrhosis, small abdominal pelvic ascites and anasarca with small pleural effusions. Physical Exam: Vitals signs as noted above General Appearance:Moderately built and nourished, chronic ill appearing, no apparent distress Head: normocephalic, Atraumatic Eyes: normal inspection, EOMI Neck: supple, Trachea midline Respiratory/Chest: Decreased breath sounds, +Basal Crackles, No accessory muscle use Cardiovascular: S1, S2, + murmur Abdomen/GI:Soft, distended, mild tender, Bowel sounds present Extremities/Musculoskeletal:normal inspection, Left BKA, + multiple bruises, right lower extremity edematous, erythematous, small wound Neurologic/Psych:AAOX3, grossly no focal neurological deficits Skin: normal color, warm Acute on chronic systolic and diastolic heart failure Anasarca Valvular heart disease HINKLE Cirrhosis Possible cellulitis Mild troponin elevation in setting of volume overload Chronic hyponatremia Thrombocytopenia Diarrhea Agree with starting IV diuretics Update echo I's and O's, daily weight, fluid and sodium restriction Cardiology consulted Stool studies to rule out infection Start normal Doxy, Rocephin for cellulitis I personally reviewed the record. Patient is interviewed and examined at bedside. Patient's care is coordinated with Tabby Rossi LAPPING MACHINE OPERATOR. Please refer to the documentation above for details of patient's presentation and for discussion of other issues.
[2022-02-28] MEDS ORDERED: GLUCAGON FOR INJ 1 MG VIAL SQ PRN (20:35)
[2022-02-28] MEDS ORDERED: ALBUT/IPRATROP 3MG/0.5MG NEB 3 ML VIAL INH PRN (20:35)
[2022-02-28] MEDS ORDERED: GLUCOSE 40% GEL 15 GM TUBE PO PRN (20:35)
[2022-02-28] MEDS ORDERED: GLUCOSE 10 TABS/TUBE PO PRN (20:35)
[2022-02-28] MEDS ORDERED: CARBOHYDRATES FOR HYPOGLYCEMIA PO PRN (20:35)
[2022-02-28] MEDS ORDERED: DEXTROSE 50% 50 ML SYRINGE IV PRN (20:35)
[2022-02-28] MEDS ORDERED: ACETAMINOPHEN 325 MG TAB PO PRN (20:35)
[2022-02-28] MEDS: oxyCODONE HCL IR 5 MG TAB (IMMEDIATE RELEASE) PO PRN (22:33)
[2022-02-28] MEDS: ATORVASTATIN 40 MG TAB PO SCH (23:06)
[2022-02-28] MEDS: CITALOPRAM 40 MG TAB PO SCH (23:08)
[2022-02-28] MEDS: rifAXIMin 550 MG TABLET PO SCH (23:08)
[2022-02-28] MEDS: GABAPENTIN 800 MG TAB PO SCH (23:08)
[2022-02-28] MEDS: HEPARIN SOD 5,000 UNIT/0.5 ML VIAL SQ SCH (23:09)
[2022-02-28] MEDS: FERROUS GLUCONATE 324 MG TAB PO SCH (23:09)
[2022-02-28] MEDS: INSULIN ASPART PER UNIT SC SCH (23:10)
[2022-02-28] MEDS: DOXYCYCLINE HYCLATE 100 MG in DEXTROSE 5% 100 ML IV SCH (23:12)
[2022-02-28] MEDS: cefTRIAXone SODIUM 2,000 MG in DEXTROSE 5% 50 ML IV SCH (23:12)
[2022-02-28] MEDS: [UNRECOGNIZED DRUG - OTHER] SCH (23:23)
[2022-03-01 02:38] LABS: Adenovirus F 40/41 PCR Not Detected (NotDetected); Astrovirus PCR Not Detected (NotDetected); Campylobacter PCR Not Detected (NotDetected); Clostridium diff Toxin A/B PCR Not Detected (NotDetected); Cryptosporidium PCR Not Detected (NotDetected); Cyclospora cayetanensis PCR Not Detected (NotDetected); Entamoeba histolytica PCR Not Detected (NotDetected); Enteroaggregative E.coli(EAEC) Not Detected (NotDetected); Enteropathogenic E.coli (EPEC) Not Detected (NotDetected); Enterotoxigenic E.coli (ETEC) Not Detected (NotDetected); Giardia lamblia PCR Not Detected (NotDetected); Norovirus GI/GII PCR Not Detected (NotDetected); Plesiomonas shigelloides PCR Not Detected (NotDetected); Rotavirus A PCR Not Detected (NotDetected); Salmonella PCR Not Detected (NotDetected); Sapovirus PCR Not Detected (NotDetected); Shiga-like Toxin E.coli (STEC) Not Detected (NotDetected); Shigella/Enteroinvasive E.coli Not Detected (NotDetected); Vibrio cholerae PCR Not Detected (NotDetected); Vibrio species PCR Not Detected (NotDetected); Yersinia enterocolitica PCR Not Detected (NotDetected)
[2022-03-01] MEDS: PANTOprazole 40 MG TAB PO SCH (06:07)
[2022-03-01] MEDS: HEPARIN SOD 5,000 UNIT/0.5 ML VIAL SQ SCH ×3 (06:07→21:36)
[2022-03-01 06:29] LABS: Mean Corpuscular Hgb Conc 31.8 g/dL (32-36)
[2022-03-01 07:06] LABS: Hematocrit (blood only) 42.8 % (37-47); Hemoglobin 13.6 g/dL (12.0-16.0); Mean Corpuscular Hemoglobin 27.6 pg (25-34); Mean Corpuscular Volume 86.8 fL (80-100); RDW Coefficient of Variation 19.9 % (11.5-14.5); Red Blood Count 4.93 M/uL (4.2-5.4); White Blood Count 7.51 K/uL (4.8-10.8)
[2022-03-01 07:10] LABS: BUN Creatinine Ratio 36.6 (10-20); Creatinine Clr Calc Pharmacy 34.8 ml/min; Est GFR (African American) 46.1 ml/min; Est GFR (Non-African American) 39.8 ml/min; Magnesium 1.9 mg/dl (1.7-2.4); Mean Platelet Volume 10.8 fL (7.4-10.4); Platelet Count 94 K/uL (130-400); Platelet Estimate Decreased (Normal); Potassium 4.2 mmol/L (3.5-5.1)
[2022-03-01] MEDS: INSULIN ASPART PER UNIT SC SCH ×4 (07:51→20:51)
[2022-03-01] MEDS: ASPIRIN 81 MG ECTAB PO SCH (07:53)
[2022-03-01] MEDS: allopurinoL 300 MG TAB PO SCH (07:53)
[2022-03-01] MEDS: GABAPENTIN 800 MG TAB PO SCH ×3 (07:54→21:34)
[2022-03-01] MEDS: rifAXIMin 550 MG TABLET PO SCH ×3 (07:54→21:41)
[2022-03-01] MEDS: FERROUS GLUCONATE 324 MG TAB PO SCH ×2 (07:54→21:34)
[2022-03-01] MEDS: SPIRONOLACTONE 100 MG TAB PO SCH (07:54)
[2022-03-01] MEDS: FOLIC ACID 1 MG TAB PO SCH (07:54)
[2022-03-01 07:59] LABS: Estimated Average Glucose 143 mg/dl; Hemoglobin A1C 6.6 % (4.5-5.6)
[2022-03-01] MEDS ORDERED: FUROSEMIDE 40 MG TAB PO SCH (08:00)
--- NOTE | 2022-03-01 08:13 | Cardiology Consultation ---
Date of Consultation March 01, 2022 Assessment & Plan (1) Combined systolic and diastolic congestive heart failure: (2) Ischemic cardiomyopathy: (3) Valvular heart disease: (4) Volume overload: (5) Elevated troponin: Hx of remote PCI to unknown vessels in 2004, known mild ICM with an LVEF 40-45%. Moderateto severeaortic stenosis and mild aortic regurgitation, mild MS and moderate to severe MR. Patient remains hypervolemic on exam. Hyponatremia could be due to volume status. Follows with nephro outpatient. Troponin minimally elevated but flat- patient without concerns of angina. -Stop PO Lasix, restart Lasix IV 40 mg BID17 -Appreciate nephrology's input- follows with Dr. Morataya as an outpatient -Echo pending, further recommendations pending results. (6) PAD (peripheral artery disease): Peripheral arterial disease with left BKA and bilateral carotid endarterectomies. (7) HINKLE (nonalcoholic steatohepatitis): HINKLE, Cirrhosiswith recurrent ascites requiring paracentesis in the past. Case discussed with Dr. Worthy. Supervising Physician Co-Signing Physician Notes I have discussed the case with the nurse practitioner. I have seen and examined the patient and reviewed the medical record. I agree with the plan as outlined. History of Present Illness Reason for Consultation: Acute on chronic combined systolic and diastolic CHF Requesting Physician: Valerie Lynne Attending Physician: Rosalba Mackey MD History of Present Illness Medically complex 71 year old female. PMH listed below. Follows with Dr. Walters as an outpatient. Presented to ED 02/28 due to shortness of breath and abdominal distention. Notable lower extremity edema. Frequent falls occurring at home, almost daily. CXR showed pulmonary vascular congestion. CT ABD/pelvis shows a small amount of ascites with anasarca. Lower extremity dopplers negative for DVT Patient was given Lasix 40 mg IV then transitioned to Lasix 40 mg BID Labs showed: hyponatremia (120>>130>>131), renal function at baseline, Troponin mildly elevated (41.4>>42.5>>48.6), BNP 2529, D-Dimer 2510 Tele: SR 1 degree AVB, PACs/PVCs, 80s, 1 short episode of atrial tach at 2330 last evening- asymptomatic I&O: +466 mL Weight: 81.9>>75.6>>75 kg Upon Entrance into the room patient was sleeping in bed but woke easily. Fell asleep multiple times through out conversation. Was able to say she was short of breath and that she "gets like this at times". + Orthopnea. On O2, which is new for her. Denies chest pain. Denies any causes of this exacerbation. No dizziness or syncope. Legs swollen. Unable to answer any further questions as she kept falling asleep. PAST MEDICAL HISTORY: -Coronary artery disease status post PCI to unknown vessels. -Mild ischemic cardiomyopathy, EF40-45%. -Peripheral arterial disease with left BKA and bilateral carotid endarterectomies. -Ongoing tobacco abuse. -Dyslipidemia. -Hypertension. -COPD. -DM2 with Charcot foot. -HINKLE, Cirrhosiswith recurrent ascites requiring paracentesis. -Moderateto severeaortic stenosis and mild aortic regurgitation -At least mild mitral stenosis with moderate to severe mitral regurgitation -GERD -History of bladder CA s/p tumor resection -CKD stage 3 -Depression -RA -Covid 11/2021 Allergies Allergy/AdvReac Type Severity Reaction Status Date / Time Penicillins Allergy Intermediate Hives, Verified 11/19/21 15:03 dyspepsia, diarrhea Iodinated Contrast Media AdvReac Intermediate Severe Verified 02/28/22 16:41 [Iodinated Contrast- Oral vomiting and IV Dye] oxycodone [From Percocet] AdvReac Intermediate Vomiting Verified 02/28/22 16:41 penicillin G AdvReac Intermediate n/v Verified 02/28/22 16:40 Home Medications Medication Instructions Recorded Confirmed Type gabapentin 800 mg tablet 800 mg PO TID tab 07/22/18 02/28/22 History atorvastatin 80 mg tablet 80 mg PO HS 03/01/19 02/28/22 History ferrous gluconate 324 mg (38 mg 324 mg PO TID 03/01/19 02/28/22 History iron) tablet folic acid 1 mg tablet 1 mg PO QAM 03/01/19 02/28/22 History metoprolol succinate 25 mg 12.5 mg PO DAILY@1530 03/01/19 02/28/22 History tablet,extended release 24 hr omeprazole 40 mg capsule,delayed 40 mg PO DAILYBB 03/01/19 02/28/22 History release nitroglycerin 0.4 mg sublingual 0.4 mg SUBLINGUAL DIRECTED PRN 04/05/19 02/28/22 History tablet allopurinol 300 mg tablet 300 mg PO QAM 01/03/20 02/28/22 History furosemide 40 mg tablet (Lasix) 40 mg PO BID 07/21/20 02/28/22 History spironolactone 100 mg tablet 100 mg PO QAM 07/21/20 02/28/22 History (Aldactone) aspirin 81 mg tablet,delayed 81 mg PO QAM 09/19/20 02/28/22 History release (Aspirin Low Dose) citalopram 40 mg tablet 40 mg PO HS 09/19/20 02/28/22 History albuterol sulfate 90 mcg/actuation 2 puff INHALATION QID PRN 10/08/21 02/28/22 History aerosol inhaler methocarbamol 500 mg tablet 500 mg PO BID 10/08/21 02/28/22 History solifenacin 5 mg tablet (Vesicare) 5 mg PO QAM 10/24/21 02/28/22 History ipratropium 0.5 mg-albuterol 3 mg 3 ml INHALATION Q6H PRN 11/19/21 02/28/22 History (2.5 mg base)/3 mL nebulization soln fluticasone propionate 50 1 spray INTRANASAL DAILY 02/28/22 02/28/22 History mcg/actuation nasal spray,suspension melatonin 1 mg tablet 1 mg PO HS 02/28/22 02/28/22 History multivitamin with minerals 1 tab PO DAILY 02/28/22 02/28/22 History (Multiple Vitamin-Minerals) rifaximin 550 mg tablet (Xifaxan) 550 mg PO AMHS 02/28/22 02/28/22 History vitamin B complex 1 tab PO QAM 02/28/22 02/28/22 History Patient History Medical History (Updated 03/01/22 @ 09:58 by NATHALIA Ferris) Acid reflux Anemia Aortic stenosis Aortic valve regurgitation Asthma Bladder cancer Bladder mass s/p resection 10/02/20 at [facility] by Dr. Everett CAD (coronary artery disease) stent x1 (2004) Carotid artery disease s/p R/L carotid endarterectomy (several years ago) Charcot foot due to diabetes mellitus Chronic combined systolic and diastolic CHF (congestive heart failure) Cirrhosis of liver CKD (chronic kidney disease), stage III COPD (chronic obstructive pulmonary disease) COVID-19 Depression Diabetes mellitus type 2, diet-controlled Diabetic peripheral neuropathy Gout H/O [id number] deficiency History of alcohol abuse History of anxiety History of bladder cancer dx 09/2020; treated surgically + BCG treatment (LAST BCG TREATMENT "A COUPLE DAYS AGO") History of depression History of endometriosis "Stage I, grade I" History of MN (myocardial infarction) History of MRSA infection History of sleep apnea No device HTN (hypertension) Hypercholesteremia SARANYA (iron deficiency anemia) Ischemic cardiomyopathy Mitral regurgitation HINKLE (nonalcoholic steatohepatitis) PAD (peripheral artery disease) Pressure ulcer of below knee amputation stump Rheumatoid arthritis 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) Valvular heart disease VHD (valvular heart disease) Surgical History History of arthroscopy of left shoulder History of bilateral carotid endarterectomy History of bladder surgery Transurethral Resection Bladder Tumor Large, With multiple fulguration History of cardiac cath stent x1 (2004) History of cholecystectomy History of colonoscopy History of cystoscopy History of hysterectomy History of left below knee amputation + prosthesis History of lumbar discectomy History of reverse total replacement of right shoulder joint Reverse total shoulder arthroplasty (01/30/2021): Grade I, MAC 3, ETT 7.0 + PNB at [facility] S/P debridement LEFT BKA WOUND (WOUND CLINIC PATIENT) S/P vascular surgery Right common femoral endarterectomy, right femoral and posterior tibial bypass (11/02/2020) Family History Father Family history of diabetes mellitus Family history of COPD (chronic obstructive pulmonary disease) Sister Breast cancer Other No family history of adverse response to anesthesia Social History Smoking Status: Current every day smoker Tobacco Type: Cigarettes Years Smoked: 54; Cigarettes Per Day: 1-3; Second Hand Exposure: Yes; Do You Dip or Chew Tobacco: No; Tobacco Cessation Education Requested by Patient: No Hx Alcohol Use: No Hx Substance Use: No Preferred Language: Sinhala Communication Ability: Effective Visual Impairment: Limited Hearing Ability: Normal Patient Care Specialist Required: No Beliefs That Will Affect Care: None marital status: Current Living Situation: Spouse Current Living Situation Comment: lives at home with current occupational status: disabled Other Information That Helps Us Care for You: No Feels Safe at Home: Yes Safety Concerns: Feels Safe At This Time Safety Concerns Comment: emotional/mental but not physical per patient. Assistive Devices: Denture - Upper, Denture - Lower, Glasses, Prosthesis, Special Shoe and Wheelchair Review of Systems Review of Systems: Unobtainable due to cognitive status Physical Exam Physical Exam: General: Lethargic No acute distress. HEENT: Normocephalic, atraumatic. Pupils equal, round and reactive to light and accommodation. Extraocular muscles are intact. Anicteric sclera. Moist mucous membranes. Neck: + JVD. Cardiovascular: RRR, unable to appreciate murmur, rub or gallop. Pulmonary: Diminished lung sounds, crackles in BL bases Abdomen: Bowel sounds x 4, distend/taut. Extremities: +2 BLLE pitting edema. +2 pedal pulses bilaterally. Skin: Warm and dry. Results & Data ([facility]) Vital Signs (Past 12 Hours) Vital Signs Temp Pulse Pulse Resp BP BP Pulse Ox 03/01/22 03:20 93 03/01/22 03:19 36.6 C 80 14 108/73 85 L 02/28/22 23:15 36.8 C 72 16 112/75 95 02/28/22 22:28 79 02/28/22 20:29 78 02/28/22 20:10 36.8 C 76 14 128/76 94 Laboratory Results Cardiac Enzymes 02/28/22 02/28/22 Range/Units 12:54 12:54 AST 28 (13-39) U/L B-Natriuretic Peptide 2529 H (0-100) pg/ml Coagulation 02/28/22 Range/Units 12:54 B-Natriuretic Peptide 2529 H (0-100) pg/ml CBC 02/28/22 03/01/22 Range/Units 12:54 06:07 WBC 6.46 7.51 (4.8-10.8) K/uL RBC 4.93 4.93 (4.2-5.4) M/uL Hgb 13.7 13.6 (12.0-16.0) g/dL Hct 42.8 42.8 (37-47) % Plt Count 106 L 94 L (130-400) K/uL Neut # (Auto) 5.85 (1.4-6.5) K/uL Lymph # (Auto) 0.36 L (1.2-3.4) K/uL [place] # (Auto) 0.23 (0.11-0.59) K/uL Eos # (Auto) 0.00 (0-0.5) K/uL Baso # (Auto) 0.01 (0-0.2) K/uL Comprehensive Metabolic Panel 02/28/22 03/01/22 Range/Units 12:54 06:07 Sodium 130 L 131 L (136-145) mmol/L Potassium 4.6 4.2 (3.5-5.1) mmol/L Chloride 92 L 93 L (98-107) mmol/L Carbon Dioxide 28 28 (21-32) mmol/L BUN 57 H 49 H (6-23) mg/dl Creatinine 1.52 H 1.34 H (0.6-1.2) mg/dl Glucose 90 102 H (70-99(Fasting)) mg/dl Calcium 9.4 9.0 (8.5-10.1) mg/dl AST 28 (13-39) U/L ALT 21 (7-52) U/L Alkaline Phosphatase 259 H (34-104) U/L Total Protein 6.6 (6.0-8.3) gm/dl Albumin 3.7 (3.4-5.0) gm/dl Intake and Output 02/28/22 03/01/22 03/01/22 22:59 06:59 14:59 Intake Total 1066 / 1066 Output Total 200 / 600 400 / 600 Balance -200 / 466 666 / 466 Intake: IV 180 / 180 Doxycycline Hyclate 100 mg In 110 / 110 Dextrose 5% 100 ml @ 50 mls/hr IV Q12H RAFY Rx#:[id number] cefTRIAXone SODIUM 2,000 mg In 70 / 70 Dextrose 5% 50 ml @ 100 mls/hr IV Q24H RAFY Rx#:[id number] Oral 886 / 886 Output: Urine Amount (Catheter) 200 / 600 400 / 600 External 200 / 600 400 / 600 Other: Other Intake Source water # Unmeasured Voids 1 Weight 75.6 kg 75 kg Weight Measurement Method Built in [facility] Built in [facility] Diagnostic Findings Echo 09/20/2020 Mildly dilated LV, EF 40-45% Moderate concentric LVH Moderate Mild AI Severe MR and severe MS Severe LA enlargement
[2022-03-01] MEDS: DOXYCYCLINE HYCLATE 100 MG in DEXTROSE 5% 100 ML IV SCH ×2 (09:25→21:35)
--- NOTE | 2022-03-01 11:16 | Hospitalist Progress Note ---
Date of Service March 01, 2022 Assessment & Plan (1) Volume overload: (2) Combined systolic and diastolic congestive heart failure: (3) Valvular heart disease: (4) HINKLE (nonalcoholic steatohepatitis): Plan: Patient presented by referral PCPs office for evaluation of shortness of breath, worsening abdominal distention In the ED, imaging suggestive of volume overload likely multifactorial due to chronic systolic and diastolic CHF, valvular heart disease, HINKLE CT ABD/pelvis showing small bilateral pleural effusions, small amount of ascites, evidence of anasarca BNP 2529 Troponin 41>42>48 S/p Lasix 40 mg IV in the ED Acute on chronic systolic diastolic heart failure Continue IV lasix Daily weights, strict I's and O's, low Na+ diet, 2 L fluid restriction Echo 09/2020-EF 40 to 45%, grade 2 diastolic dysfunction, moderate aortic stenosis, mild aortic regurgitation, mild mitral stenosis, severe mitral regurgitation Repeat TTE today show EF of 30-35%, LV is moderately dilated, severe MR, mod MS, LA mod dilated Cardiology on board Continue rifaximin Check ammonia level (5) Leg wound, right: Plan: Right anterior swan wound in the setting of severe PVD No signs of sepsis Venous Doppler shows greater saphenous vein graft that appears patent On antibiotics for cellulitis Wound care (6) PAD (peripheral artery disease): (7) CAD (coronary artery disease): (8) Elevated troponin: Plan: Troponin 41>42>48 No reports of chest pain Continue ASA, statin, beta-alma (9) Diarrhea: Plan: Seems to be a chronic issue C. difficile and stool PCR negative (10) COPD (chronic obstructive pulmonary disease): Plan: No signs of acute exacerbation (11) CKD (chronic kidney disease), stage III: Plan: Baseline creatinine mid 1's Creatinine 1.34 today (12) Diabetes mellitus type 2, diet-controlled: Plan: Hgb A1c 6.9 10/2021, A1c today 03/01/22 6.6 (13) Bladder cancer: Plan: History of, had screening cystoscopy on 02/27/22 that showed recurrence of cancer Patient scheduled for TURBT in March (14) DVT prophylaxis: Plan: SQ heparin Admission and Anticipated Discharge Date Admission Date: February 28, 2022 Subjective 71 yo F with h/o Charcot foot, DM type II with peripheral neuropathy, alpha 1 antitrypsin deficiency, COPD, bilateral carotid artery disease, chronic systolic and diastolic CHF with valvular disease, CAD, HTN, HINKLE, bladder cancer s/p tumor resection, vaginal intraepithelial neoplasia 3, PAD, CKD stage III, SARANYA, rheumatoid arthritis, s/p left BKA, depression, tobacco use who presents with SOB. Being managed for acute on chronic systolic diastolic heart failure. Patient seen and examined Was drowsy but arousable and able to answer questions Reported feeling of abd distention Denied any chest pain Denied nausea, vomiting, abd pain, diarrhea Denied dysuria, freq, hematuria Physical Exam Constitutional: + well hydrated and + obese; no acute distress Eyes: PERRL, conjunctivae normal, anicteric sclerae ENMT: external ear and nose normal, oropharynx normal Respiratory: Diminished breath sounds, basilar crackles Cardiovascular: Heart Sounds: + murmur RRR S1 S2 Gastrointestinal (Abdomen): normal bowel sounds, soft, nontender, no hepatosplenomegaly Musculoskeletal: Left BKA. Pitting edema Stasis changes, Rt anterior swan wound with erythema Neurologic: PERRL, EOMI, accommodation nl, no face palsy, no dysarthria Drowsy but arousable Oriented to person place and time Results & Data Results & Data ([facility]) Vital Signs (Past 12 Hours) Vital Signs Temp Pulse Pulse Resp BP BP Pulse Ox 03/01/22 08:00 37.0 C 65 66 24 111/73 94 03/01/22 03:20 93 03/01/22 03:19 36.6 C 80 14 108/73 85 L Laboratory Results Abnormal lab results 02/28/22 02/28/22 02/28/22 Range/Units 12:54 12:54 12:54 MCHC (32-36) g/dL RDW Std Deviation 59.6 H (36.4-46.3) fL RDW Coeff of Tiburcio 19.7 H (11.5-14.5) % Plt Count 106 L (130-400) K/uL MPV 10.8 H (7.4-10.4) fL Lymph # (Auto) 0.36 L (1.2-3.4) K/uL Platelet Estimate Decreased L (Normal) VBG pH (7.36-7.41) VBG pCO2 (38-50) mmHg Sodium 130 L (136-145) mmol/L Chloride 92 L (98-107) mmol/L BUN 57 H (6-23) mg/dl Creatinine 1.52 H (0.6-1.2) mg/dl BUN/Creatinine Ratio 37.5 H (10-20) Glucose (70-99(Fasting)) mg/dl POC Glucose (70-99) mg/dl Hemoglobin A1c (4.5-5.6) % Total Bilirubin 1.3 H (0.2-1.0) mg/dl Alkaline Phosphatase 259 H (34-104) U/L Troponin I High Sens 41.4 H (0-14) pg/ml B-Natriuretic Peptide (0-100) pg/ml 02/28/22 02/28/22 02/28/22 Range/Units 12:54 12:54 16:09 MCHC (32-36) g/dL RDW Std Deviation (36.4-46.3) fL RDW Coeff of Tiburcio (11.5-14.5) % Plt Count (130-400) K/uL MPV (7.4-10.4) fL Lymph # (Auto) (1.2-3.4) K/uL Platelet Estimate (Normal) VBG pH 7.35 L (7.36-7.41) VBG pCO2 53 H (38-50) mmHg Sodium (136-145) mmol/L Chloride (98-107) mmol/L BUN (6-23) mg/dl Creatinine (0.6-1.2) mg/dl BUN/Creatinine Ratio (10-20) Glucose (70-99(Fasting)) mg/dl POC Glucose (70-99) mg/dl Hemoglobin A1c (4.5-5.6) % Total Bilirubin (0.2-1.0) mg/dl Alkaline Phosphatase (34-104) U/L Troponin I High Sens 42.5 H (0-14) pg/ml B-Natriuretic Peptide 2529 H (0-100) pg/ml 02/28/22 02/28/22 03/01/22 Range/Units 22:31 22:35 06:07 MCHC 31.8 L (32-36) g/dL RDW Std Deviation 60.0 H (36.4-46.3) fL RDW Coeff of Tiburcio 19.9 H (11.5-14.5) % Plt Count 94 L (130-400) K/uL MPV 10.8 H (7.4-10.4) fL Lymph # (Auto) (1.2-3.4) K/uL Platelet Estimate Decreased L (Normal) VBG pH (7.36-7.41) VBG pCO2 (38-50) mmHg Sodium (136-145) mmol/L Chloride (98-107) mmol/L BUN (6-23) mg/dl Creatinine (0.6-1.2) mg/dl BUN/Creatinine Ratio (10-20) Glucose (70-99(Fasting)) mg/dl POC Glucose 140 H (70-99) mg/dl Hemoglobin A1c (4.5-5.6) % Total Bilirubin (0.2-1.0) mg/dl Alkaline Phosphatase (34-104) U/L Troponin I High Sens 48.6 H (0-14) pg/ml B-Natriuretic Peptide (0-100) pg/ml 03/01/22 03/01/22 03/01/22 Range/Units 06:07 06:07 07:23 MCHC (32-36) g/dL RDW Std Deviation (36.4-46.3) fL RDW Coeff of Tiburcio (11.5-14.5) % Plt Count (130-400) K/uL MPV (7.4-10.4) fL Lymph # (Auto) (1.2-3.4) K/uL Platelet Estimate (Normal) VBG pH (7.36-7.41) VBG pCO2 (38-50) mmHg Sodium 131 L (136-145) mmol/L Chloride 93 L (98-107) mmol/L BUN 49 H (6-23) mg/dl Creatinine 1.34 H (0.6-1.2) mg/dl BUN/Creatinine Ratio 36.6 H (10-20) Glucose 102 H (70-99(Fasting)) mg/dl POC Glucose 116 H (70-99) mg/dl Hemoglobin A1c 6.6 H (4.5-5.6) % Total Bilirubin (0.2-1.0) mg/dl Alkaline Phosphatase (34-104) U/L Troponin I High Sens (0-14) pg/ml B-Natriuretic Peptide (0-100) pg/ml
[2022-03-01] MEDS: [UNRECOGNIZED DRUG - OTHER] SCH (13:32)
[2022-03-01] MEDS: METOPROLOL SUCC 25MG EXT REL TAB PO SCH (16:11)
[2022-03-01] MEDS: FUROSEMIDE 40 MG/4 ML VIAL IV SCH (16:13)
--- NOTE | 2022-03-01 18:24 | Nephrology Consultation ---
Date of Consultation March 01, 2022 Assessment & Plan (1) CKD (chronic kidney disease), stage III: She is know to be non protenuric CKD 3b with baseline Scr 1.4 --1.6 Her renal functions are at baseline and she is comfortable with the present does of lasix.Agree with the current dose, This is managed by Cardiology and leave this to them - She has mild hyponatremia , which is secondary to fluid overload which will improve with Volume optimization. - No new recommendation from Nephrology - She can follow with Dr Ferrell(non urgent) with repeat BMP in 3- 4 weeks time. (2) Combined systolic and diastolic congestive heart failure: As above. Daily weights, strict I's and O's, low Na+ diet, 2 L fluid restriction Echo 09/2020-EF 40 to 45%, grade 2 diastolic dysfunction, moderate aortic stenosis, mild aortic regurgitation, mild mitral stenosis, severe mitral regurgitation Repeat TTE today show EF of 30-35%, LV is moderately dilated, severe MR, mod MS, LA mod dilated - Cardiologty on board, (3) Cellulitis: Right anterior swan wound in the setting of severe PVD No signs of sepsis Venous Doppler shows greater saphenous vein graft that appears patent On antibiotics for cellulitis Wound care (4) COPD (chronic obstructive pulmonary disease): No signs of exerbation (5) HINKLE (nonalcoholic steatohepatitis): History of Present Illness Reason for Consultation: CKD 3 f/u Attending Physician: Rosalba Mackey MD History of Present Illness 71 yo F with h/o Charcot foot, DM type II with peripheral neuropathy, alpha 1 antitrypsin deficiency, COPD, bilateral carotid artery disease, chronic systolic and diastolic CHF with valvular disease, CAD, HTN, HINKLE, bladder cancer s/p tumo r resection, vaginal intraepithelial neoplasia 3, PAD,non protenuric CKD stage III( baseline 1.4-1.6, last seen by Nephrology , Dr Ferrell 01/31/22, she was on furosemide 40 mg BID), s/p left BKA, who presented with shortness of breath over the past few days. She also c/o increasing abdominal distention and chronic intermittent dry to productive cough, She continues to smoke. ER labs were significant for - creatinine 1.52, BUN 57, total bilirubin 1.3, alkaline phosphatase 259, troponin 41.4, BNP 2529. Chest x-ray suggestive of cardiomegaly with mild vascular congestion.CT abdomen( without contrast) showed rectal wall thickening suggestive of proctitis. Also noted hepatosplenomegaly with cirrhosis, small abdominal pelvic ascites and anasarca with small pleural e ffusions She was seen by Cardiology and the furosemide was changed to 40 mg iV bid, Renal function continues to be at baseline. on review she was lying flat with no SOB, Pedal edema has improved,UOP has been good. Allergies Allergy/AdvReac Type Severity Reaction Status Date / Time Penicillins Allergy Intermediate Hives, Verified 11/19/21 15:03 dyspepsia, diarrhea Iodinated Contrast Media AdvReac Intermediate Severe Verified 02/28/22 16:41 [Iodinated Contrast- Oral vomiting and IV Dye] oxycodone [From Percocet] AdvReac Intermediate Vomiting Verified 02/28/22 16:41 penicillin G AdvReac Intermediate n/v Verified 02/28/22 16:40 Home Medications Medication Instructions Recorded Confirmed Type gabapentin 800 mg tablet 800 mg PO TID tab 07/22/18 02/28/22 History atorvastatin 80 mg tablet 80 mg PO HS 03/01/19 02/28/22 History ferrous gluconate 324 mg (38 mg 324 mg PO TID 03/01/19 02/28/22 History iron) tablet folic acid 1 mg tablet 1 mg PO QAM 03/01/19 02/28/22 History metoprolol succinate 25 mg 12.5 mg PO DAILY@1530 03/01/19 02/28/22 History tablet,extended release 24 hr omeprazole 40 mg capsule,delayed 40 mg PO DAILYBB 03/01/19 02/28/22 History release nitroglycerin 0.4 mg sublingual 0.4 mg SUBLINGUAL DIRECTED PRN 04/05/19 02/28/22 History tablet allopurinol 300 mg tablet 300 mg PO QAM 01/03/20 02/28/22 History furosemide 40 mg tablet (Lasix) 40 mg PO BID 07/21/20 02/28/22 History spironolactone 100 mg tablet 100 mg PO QAM 07/21/20 02/28/22 History (Aldactone) aspirin 81 mg tablet,delayed 81 mg PO QAM 09/19/20 02/28/22 History release (Aspirin Low Dose) citalopram 40 mg tablet 40 mg PO HS 09/19/20 02/28/22 History albuterol sulfate 90 mcg/actuation 2 puff INHALATION QID PRN 10/08/21 02/28/22 History aerosol inhaler methocarbamol 500 mg tablet 500 mg PO BID 10/08/21 02/28/22 History solifenacin 5 mg tablet (Vesicare) 5 mg PO QAM 10/24/21 02/28/22 History ipratropium 0.5 mg-albuterol 3 mg 3 ml INHALATION Q6H PRN 11/19/21 02/28/22 History (2.5 mg base)/3 mL nebulization soln fluticasone propionate 50 1 spray INTRANASAL DAILY 02/28/22 02/28/22 History mcg/actuation nasal spray,suspension melatonin 1 mg tablet 1 mg PO HS 02/28/22 02/28/22 History multivitamin with minerals 1 tab PO DAILY 02/28/22 02/28/22 History (Multiple Vitamin-Minerals) rifaximin 550 mg tablet (Xifaxan) 550 mg PO AMHS 02/28/22 02/28/22 History vitamin B complex 1 tab PO QAM 02/28/22 02/28/22 History Patient History Medical History (Updated 03/01/22 @ 18:28 by Alicia Daniels MD) Acid reflux Anemia Aortic stenosis Aortic valve regurgitation Asthma Bladder cancer Bladder mass s/p resection 10/02/20 at [facility] by Dr. Everett CAD (coronary artery disease) stent x1 (2004) Carotid artery disease s/p R/L carotid endarterectomy (several years ago) Charcot foot due to diabetes mellitus Chronic combined systolic and diastolic CHF (congestive heart failure) Cirrhosis of liver CKD (chronic kidney disease), stage III COPD (chronic obstructive pulmonary disease) COVID-19 Depression Diabetes mellitus type 2, diet-controlled Diabetic peripheral neuropathy Gout H/O [id number] deficiency History of alcohol abuse History of anxiety History of bladder cancer dx 09/2020; treated surgically + BCG treatment (LAST BCG TREATMENT "A COUPLE DAYS AGO") History of depression History of endometriosis "Stage I, grade I" History of NM (myocardial infarction) History of MRSA infection History of sleep apnea No device HTN (hypertension) Hypercholesteremia SARANYA (iron deficiency anemia) Ischemic cardiomyopathy Mitral regurgitation HINKLE (nonalcoholic steatohepatitis) PAD (peripheral artery disease) Pressure ulcer of below knee amputation stump Rheumatoid arthritis 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) Valvular heart disease VHD (valvular heart disease) Surgical History History of arthroscopy of left shoulder History of bilateral carotid endarterectomy History of bladder surgery Transurethral Resection Bladder Tumor Large, With multiple fulguration History of cardiac cath stent x1 (2004) History of cholecystectomy History of colonoscopy History of cystoscopy History of hysterectomy History of left below knee amputation + prosthesis History of lumbar discectomy History of reverse total replacement of right shoulder joint Reverse total shoulder arthroplasty (01/30/2021): Grade I, MAC 3, ETT 7.0 + PNB at [facility] S/P debridement LEFT BKA WOUND (WOUND CLINIC PATIENT) S/P vascular surgery Right common femoral endarterectomy, right femoral and posterior tibial bypass (11/02/2020) Family History Father Family history of diabetes mellitus Family history of COPD (chronic obstructive pulmonary disease) Sister Breast cancer Other No family history of adverse response to anesthesia Social History Smoking Status: Current every day smoker Tobacco Type: Cigarettes Years Smoked: 54; Cigarettes Per Day: 1-3; Second Hand Exposure: Yes; Do You Dip or Chew Tobacco: No; Tobacco Cessation Education Requested by Patient: No Hx Alcohol Use: No Hx Substance Use: No Preferred Language: Congolese Communication Ability: Effective Visual Impairment: Limited Hearing Ability: Normal Account Strategist Required: No Beliefs That Will Affect Care: None marital status: Current Living Situation: Spouse Current Living Situation Comment: lives at home with current occupational status: disabled How many Children do You have: 0 Other Information That Helps Us Care for You: No Feels Safe at Home: Yes Safety Concerns: Feels Safe At This Time Safety Concerns Comment: emotional/mental but not physical per patient. Assistive Devices: Cane, Walker and Wheelchair Assistive Devices Comment: Pt only uses w/c Review of Systems Review of Systems: All systems reviewed & are unremarkable except as noted in HPI & below Physical Exam Physical Exam: General Appearance:Moderately built and nourished, chronic ill appearing, no apparent distress Head: normocephalic, Atraumatic Eyes: normal inspection, EOMI Neck: supple, Trachea midline Respiratory/Chest: Decreased breath sounds, +Basal Crackles Cardiovascular: S1, S2, + murmur Abdomen/GI:Soft, distended, mild tender, Bowel sounds present Extremities/Musculoskeletal:normal inspection, Left BKA, + multiple bruises Neurologic/Psych:AAOX3, grossly no focal neurological deficits Skin: normal color, warm Results & Data ([facility]) Vital Signs (Past 12 Hours) Vital Signs Temp Pulse Pulse Resp BP Pulse Ox 03/01/22 15:45 77 03/01/22 08:00 37.0 C 65 66 24 111/73 94 Laboratory Results 03/01/22 06:07 03/01/22 06:07
--- NOTE | 2022-03-01 21:22 | Electrocardiogram Report ---
Test Reason : Blood Pressure : / mmHG Vent. Rate : 075 BPM Atrial Rate : 075 BPM P-R Int : 248 ms QRS Dur : 122 ms QT Int : 418 ms P-R-T Axes : 076 -76 067 degrees QTc Int : 466 ms Sinus rhythm with sinus arrhythmia with 1st degree A-V block Left axis deviation Inferior infarct , age undetermined Anterolateral infarct , age undetermined Non-specific intra-ventricular conduction block Abnormal ECG When compared with ECG of 19-NOV-2021 14:21, Left bundle branch block is no longer Present Anterior infarct is now Present Anterolateral infarct is now Present Inferior infarct is now Present Confirmed by Graham Falk ([id number]) on 03/01/2022 9:22:11 PM Referred By: REFERRED SELF Confirmed By:Graham Falk
[2022-03-01] MEDS: ATORVASTATIN 40 MG TAB PO SCH (21:34)
[2022-03-01] MEDS: CITALOPRAM 40 MG TAB PO SCH (21:35)
[2022-03-01] MEDS: cefTRIAXone SODIUM 2,000 MG in DEXTROSE 5% 50 ML IV SCH (21:35)
[2022-03-02] MEDS: oxyCODONE HCL IR 5 MG TAB (IMMEDIATE RELEASE) PO PRN (00:09)
[2022-03-02] MEDS: HEPARIN SOD 5,000 UNIT/0.5 ML VIAL SQ SCH ×3 (05:53→21:15)
[2022-03-02] MEDS: PANTOprazole 40 MG TAB PO SCH (05:53)
[2022-03-02] MEDS: INSULIN ASPART PER UNIT SC SCH ×4 (08:27→21:14)
[2022-03-02 08:28] LABS: Hematocrit (blood only) 41.4 % (37-47); Hemoglobin 13.2 g/dL (12.0-16.0); Mean Corpuscular Hemoglobin 28.2 pg (25-34); Mean Corpuscular Volume 88.5 fL (80-100); RDW Standard Deviation 62.3 fL (36.4-46.3); Red Blood Count 4.68 M/uL (4.2-5.4); White Blood Count 4.99 K/uL (4.8-10.8)
[2022-03-02] MEDS: SPIRONOLACTONE 100 MG TAB PO SCH (08:28)
[2022-03-02] MEDS: allopurinoL 300 MG TAB PO SCH (08:28)
[2022-03-02] MEDS: ASPIRIN 81 MG ECTAB PO SCH (08:28)
[2022-03-02] MEDS: FERROUS GLUCONATE 324 MG TAB PO SCH ×2 (08:28→21:13)
[2022-03-02] MEDS: FOLIC ACID 1 MG TAB PO SCH (08:28)
[2022-03-02] MEDS: FUROSEMIDE 40 MG/4 ML VIAL IV SCH ×2 (08:29→16:53)
[2022-03-02] MEDS: GABAPENTIN 800 MG TAB PO SCH ×3 (08:29→21:13)
[2022-03-02] MEDS: rifAXIMin 550 MG TABLET PO SCH ×2 (08:29→21:15)
[2022-03-02 08:36] LABS: Mean Corpuscular Hgb Conc 31.9 g/dL (32-36); Mean Platelet Volume 10.2 fL (7.4-10.4); Platelet Count 100 K/uL (130-400); Platelet Estimate Decreased (Normal)
[2022-03-02] MEDS: DOXYCYCLINE HYCLATE 100 MG in DEXTROSE 5% 100 ML IV SCH ×2 (08:36→21:13)
[2022-03-02 08:52] LABS: BUN Creatinine Ratio 30.9 (10-20); Est GFR (African American) 36.6 ml/min; Est GFR (Non-African American) 31.6 ml/min; Magnesium 1.8 mg/dl (1.7-2.4); Phosphorus 3.5 mg/dl (2.5-4.9); Potassium 4.3 mmol/L (3.5-5.1)
--- NOTE | 2022-03-02 11:16 | Hospitalist Progress Note ---
Date of Service March 02, 2022 Assessment & Plan (1) Volume overload: (2) Combined systolic and diastolic congestive heart failure: (3) Valvular heart disease: (4) HINKLE (nonalcoholic steatohepatitis): Plan: Patient presented by referral PCPs office for evaluation of shortness of breath, worsening abdominal distention In the ED, imaging suggestive of volume overload likely multifactorial due to chronic systolic and diastolic CHF, valvular heart disease, HINKLE CT ABD/pelvis showing small bilateral pleural effusions, small amount of ascites, evidence of anasarca BNP 2529 Troponin 41>42>48 Acute on chronic systolic diastolic heart failure Continue IV lasix Daily weights, strict I's and O's, low Na+ diet, 2 L fluid restriction Echo 09/2020-EF 40 to 45%, grade 2 diastolic dysfunction, moderate aortic stenosis, mild aortic regurgitation, mild mitral stenosis, severe mitral regurgitation Repeat TTE today show EF of 30-35%, LV is moderately dilated, severe MR, mod MS, LA mod dilated Continue IV lasix 40mg bid Discussed with Opal Polisher Dr Crews. Will give extra lasix today Monitor renal function and electrolytes Continue rifaximin (5) Leg wound, right: Plan: Right anterior swan wound in the setting of severe PVD No signs of sepsis Venous Doppler shows greater saphenous vein graft that appears patent On antibiotics for cellulitis Wound care (6) PAD (peripheral artery disease): (7) CAD (coronary artery disease): (8) Elevated troponin: Plan: Troponin 41>42>48 No reports of chest pain Continue ASA, statin, beta-alma (9) Diarrhea: Plan: Seems to be a chronic issue C. difficile and stool PCR negative (10) COPD (chronic obstructive pulmonary disease): Plan: No signs of acute exacerbation (11) CKD (chronic kidney disease), stage III: Plan: Baseline creatinine mid 1's Creatinine 1.6 today (12) Diabetes mellitus type 2, diet-controlled: Plan: Hgb A1c 6.9 10/2021, A1c today 03/01/22 6.6 (13) Bladder cancer: Plan: History of, had screening cystoscopy on 02/27/22 that showed recurrence of cancer Patient scheduled for TURBT in March (14) DVT prophylaxis: Plan: SQ heparin Admission and Anticipated Discharge Date Admission Date: February 28, 2022 Subjective 71 yo F with h/o Charcot foot, DM type II with peripheral neuropathy, alpha 1 antitrypsin deficiency, COPD, bilateral carotid artery disease, chronic systolic and diastolic CHF with valvular disease, CAD, HTN, HINKLE, bladder cancer s/p tumor resection, vaginal intraepithelial neoplasia 3, PAD, CKD stage III, SARANYA, rheumatoid arthritis, s/p left BKA, depression, tobacco use who presents with SOB. Being managed for acute on chronic systolic diastolic heart failure. Patient seen and examined Still reports abd fullness Reports some cough. Denied shortness of breath at rest Denied any chest pain Denied nausea, vomiting, abd pain, diarrhea Denied dysuria, freq, hematuria Physical Exam Constitutional: + well hydrated and + obese; no acute distress Eyes: PERRL, conjunctivae normal, anicteric sclerae ENMT: external ear and nose normal, oropharynx normal Respiratory: Not in resp distress, diminished breath sounds Cardiovascular: Rate/Rhythm: regular rate and regular rhythm Heart Sounds: + murmur S1 S2 Gastrointestinal (Abdomen): normal bowel sounds, soft, nontender, no hepatosplenomegaly Musculoskeletal: Left BKA. Stasis changes, Rt anterior swan wound with erythema Neurologic: PERRL, EOMI, accommodation nl, no face palsy, no dysarthria Results & Data Results & Data ([facility]) Vital Signs (Past 12 Hours) Vital Signs Temp Pulse Pulse Resp BP Pulse Ox 03/02/22 09:50 72 03/02/22 07:40 36.6 C 68 18 107/67 97 03/02/22 02:58 36.4 C L 68 15 109/67 98 03/01/22 23:17 36.6 C 73 18 107/67 97 Laboratory Results Abnormal lab results 03/01/22 03/01/22 03/02/22 Range/Units 16:21 20:45 08:02 MCHC 31.9 L (32-36) g/dL RDW Std Deviation 62.3 H (36.4-46.3) fL RDW Coeff of Tiburcio 20.0 H (11.5-14.5) % Plt Count 100 L (130-400) K/uL Platelet Estimate Decreased L (Normal) Sodium (136-145) mmol/L Chloride (98-107) mmol/L BUN (6-23) mg/dl Creatinine (0.6-1.2) mg/dl BUN/Creatinine Ratio (10-20) Glucose (70-99(Fasting)) mg/dl POC Glucose 219 H 128 H (70-99) mg/dl 03/02/22 03/02/22 Range/Units 08:02 11:44 MCHC (32-36) g/dL RDW Std Deviation (36.4-46.3) fL RDW Coeff of Tiburcio (11.5-14.5) % Plt Count (130-400) K/uL Platelet Estimate (Normal) Sodium 130 L (136-145) mmol/L Chloride 92 L (98-107) mmol/L BUN 50 H (6-23) mg/dl Creatinine 1.62 H (0.6-1.2) mg/dl BUN/Creatinine Ratio 30.9 H (10-20) Glucose 124 H (70-99(Fasting)) mg/dl POC Glucose 185 H (70-99) mg/dl
[2022-03-02] MEDS ORDERED: FUROSEMIDE 40 MG/4 ML VIAL IV ONE (13:08)
--- NOTE | 2022-03-02 14:07 | Nephrology Progress Note ---
Date of Service March 02, 2022 Assessment & Plan (1) CKD (chronic kidney disease), stage III: Plan: She is know to be non protenuric CKD 3b with baseline Scr 1.4 --1.6 Her renal functions are at baseline and she is comfortable with the present does of lasix.Agree with the current dose, This is managed by Cardiology and leave this to them - She has mild hyponatremia , which is secondary to fluid overload which will improve with Volume optimization. - No new recommendation from Nephrology - She can follow with Dr Ferrell(non urgent) with repeat BMP in 3- 4 weeks time. (2) Combined systolic and diastolic congestive heart failure: Plan: As above. Daily weights, strict I's and O's, low Na+ diet, 2 L fluid restriction Echo 09/2020-EF 40 to 45%, grade 2 diastolic dysfunction, moderate aortic stenosis, mild aortic regurgitation, mild mitral stenosis, severe mitral regurgitation Repeat TTE show EF of 30-35%, LV is moderately dilated, severe MR, mod MS, LA mod dilated - Cardiologty on board, (3) Cellulitis: Plan: Right anterior swan wound in the setting of severe PVD No signs of sepsis Venous Doppler shows greater saphenous vein graft that appears patent On antibiotics for cellulitis Wound care (4) COPD (chronic obstructive pulmonary disease): Plan: No signs of exerbation (5) HINKLE (nonalcoholic steatohepatitis): Admission and Anticipated Discharge Date Admission Date: February 28, 2022 Subjective Comfortable , no respiratory distress. no new issues Review of Systems Review of Systems: All systems reviewed & are unremarkable except as noted in Subjective Physical Exam Physical Exam: General Appearance:Moderately built and nourished, chronic ill appearing, no apparent distress Head: normocephalic, Atraumatic Eyes: normal inspection, EOMI Neck: supple, Trachea midline Respiratory/Chest: Decreased breath sounds, +Basal Crackles Cardiovascular: S1, S2, + murmur Abdomen/GI:Soft, distended, mild tender, Bowel sounds present Extremities/Musculoskeletal:normal inspection, Left BKA, + multiple bruises Neurologic/Psych:AAOX3, grossly no focal neurological deficits Skin: normal color, warm Results & Data ([facility]) Vital Signs (Past 12 Hours) Vital Signs Temp Pulse Pulse Resp BP Pulse Ox 03/02/22 11:33 36.8 C 74 16 113/70 95 03/02/22 09:50 72 03/02/22 07:40 36.6 C 68 18 107/67 97 03/02/22 02:58 36.4 C L 68 15 109/67 98 Laboratory Results 03/02/22 08:02 03/02/22 08:02
[2022-03-02] MEDS: METOPROLOL SUCC 25MG EXT REL TAB PO SCH (14:32)
--- NOTE | 2022-03-02 17:59 | Cardiology Progress Note ---
Date of Service March 02, 2022 Assessment & Plan (1) Combined systolic and diastolic congestive heart failure: (2) Ischemic cardiomyopathy: (3) Valvular heart disease: (4) Volume overload: (5) Elevated troponin: (6) PAD (peripheral artery disease): Plan: Peripheral arterial disease with left BKA and bilateral carotid endarterectomies. (7) HINKLE (nonalcoholic steatohepatitis): Plan: HINKLE, Cirrhosiswith recurrent ascites requiring paracentesis in the past. Plan: Acute on chronic decompensated systolic and diastolic heart failure now responding to IV diuretics. Continue therapies as ordered additional 24 hours and will reassess for possible oral regimen Admission and Anticipated Discharge Date Admission Date: February 28, 2022 Subjective Patient was seen and examined, chart, medications, telemetry reviewed. Patient is responding to IV diuretics. Lower leg edema has improved per her description. No chest pains or discomfort. Review of Systems Review of Systems: All systems reviewed & are unremarkable except as noted in Subjective Physical Exam Constitutional: + obese; no acute distress Eyes: PERRL, conjunctivae normal, anicteric sclerae ENMT: external ear and nose normal, oropharynx normal Neck: trachea midline, no thyromegaly Respiratory: Auscultation: + diminished lung sounds Cardiovascular: Rate/Rhythm: regular rate and regular rhythm Heart Sounds: + murmur (Grade 2/6 to 3/6 systolic murmur) Extremities: + edema (1-2+ greatest length leg BKA stump) Gastrointestinal (Abdomen): Percussion/Palpation: abdomen soft; abdomen nontender Results & Data ([facility]) Vital Signs (Past 12 Hours) Vital Signs Temp Pulse Pulse Resp BP Pulse Ox 03/02/22 16:27 36.6 C 73 24 108/67 97 03/02/22 15:01 74 03/02/22 11:33 36.8 C 74 16 113/70 95 03/02/22 09:50 72 03/02/22 07:40 36.6 C 68 18 107/67 97 Laboratory Results Laboratory Results - last 24 hr 03/01/22 03/02/22 03/02/22 20:45 08:02 08:02 WBC 4.99 RBC 4.68 Hgb 13.2 Hct 41.4 MCV 88.5 MCH 28.2 MCHC 31.9 L RDW Std Deviation 62.3 H RDW Coeff of Tiburcio 20.0 H Plt Count 100 L MPV 10.2 Platelet Estimate Decreased L Sodium 130 L Potassium 4.3 Chloride 92 L Carbon Dioxide 29 Anion Gap 9 BUN 50 H Creatinine 1.62 H Est Cr Clr Drug Dosing 29.0 Est GFR ( Amer) 36.6 Est GFR (Non-Af Amer) 31.6 BUN/Creatinine Ratio 30.9 H Glucose 124 H POC Glucose 128 H Calcium 9.0 Phosphorus 3.5 Magnesium 1.8 03/02/22 03/02/22 11:44 16:35 WBC RBC Hgb Hct MCV MCH MCHC RDW Std Deviation RDW Coeff of Tiburcio Plt Count MPV Platelet Estimate Sodium Potassium Chloride Carbon Dioxide Anion Gap BUN Creatinine Est Cr Clr Drug Dosing Est GFR ( Amer) Est GFR (Non-Af Amer) BUN/Creatinine Ratio Glucose POC Glucose 185 H 138 H Calcium Phosphorus Magnesium Medications Administered Current Medications Acetaminophen (Acetaminophen 325 Mg Tab) 650 mg PO Q4H PRN PRN Reason: Pain or Fever Stop: 03/30/22 20:34 Albuterol (Albut/Ipratrop 3mg/0.5mg Neb 3 Ml Vial) 3 ml INH Q6R PRN; Protocol PRN Reason: Shortness Of Breath Stop: 03/30/22 20:34 Allopurinol (Allopurinol 300 Mg Tab) 300 mg PO QAM [facility] Stop: 03/31/22 08:59 Last Admin: 03/02/22 08:28 Dose: 300 mg Documented by: Aspirin (Aspirin 81 Mg Ectab) 81 mg PO QAM RAFY Stop: 03/31/22 08:59 Last Admin: 03/02/22 08:28 Dose: 81 mg Documented by: Atorvastatin Calcium (Atorvastatin 40 Mg Tab) 80 mg PO [facility] Stop: 03/30/22 20:59 Last Admin: 03/01/22 21:34 Dose: 80 mg Documented by: Citalopram Hydrobromide (Citalopram 40 Mg Tab) 40 mg PO [facility] Stop: 03/30/22 20:59 Last Admin: 03/01/22 21:35 Dose: 40 mg Documented by: Dextrose (Dextrose 50% 50 Ml Syringe) 25 - 50 ml IV UD PRN; Protocol PRN Reason: Hypoglycemia Protocol Stop: 03/30/22 20:34 Ferrous Gluconate (Ferrous Gluconate 324 Mg Tab) 324 mg PO BID RAFY Stop: 03/30/22 20:59 Last Admin: 03/02/22 08:28 Dose: 324 mg Documented by: Folic Acid (Folic Acid 1 Mg Tab) 1 mg PO QAM [facility] Stop: 03/31/22 08:59 Last Admin: 03/02/22 08:28 Dose: 1 mg Documented by: Furosemide (Furosemide 40 Mg/4 Ml Vial) 40 mg IV [id number] RAFY Stop: 03/31/22 16:59 Last Admin: 03/02/22 16:53 Dose: 40 mg Documented by: Gabapentin (Gabapentin 800 Mg Tab) 800 mg PO TID [facility] Stop: 03/30/22 20:59 Last Admin: 03/02/22 14:30 Dose: 800 mg Documented by: Glucagon (Glucagon For Inj 1 Mg Vial) 1 mg SQ UD PRN; Protocol PRN Reason: Hypoglycemia Protocol Stop: 03/30/22 20:34 Glucose (Glucose 10 Tabs/Tube) 4 - 8 tabs PO UD PRN; Protocol PRN Reason: Hypoglycemia Protocol Stop: 03/30/22 20:34 Glucose (Glucose 40% Gel 15 Gm Tube) 15 - 30 gm PO UD PRN; Protocol PRN Reason: Hypoglycemia Protocol Stop: 03/30/22 20:34 Heparin Sodium (Porcine) (Heparin Sod 5,000 Unit/0.5 Ml Vial) 5,000 units SQ Q8 [facility] Stop: 03/30/22 21:59 Last Admin: 03/02/22 14:31 Dose: 5,000 units Documented by: Doxycycline Hyclate 100 mg/ (Dextrose) 110 mls @ 50 mls/hr IV Q12H [facility] Stop: 03/07/22 20:59 Last Infusion: 03/02/22 11:05 Dose: Infused Documented by: Ceftriaxone Sodium 2,000 mg/ (Dextrose) 70 mls @ 100 mls/hr IV Q24H [facility]; Protocol Stop: 03/07/22 20:59 Last Infusion: 03/01/22 22:20 Dose: Infused Documented by: Insulin Aspart (Insulin Aspart Per Unit) 0 units SC ACHS [facility] Stop: 03/30/22 20:59 Last Admin: 03/02/22 16:56 Dose: Not Given Documented by: Metoprolol Succinate (Metoprolol Succ 25mg Ext Rel Tab) 12.5 mg PO DAILY@1530 [facility] Stop: 03/31/22 15:29 Last Admin: 03/02/22 14:32 Dose: 12.5 mg Documented by: Miscellaneous (Carbohydrates For Hypoglycemia ) 15 - 30 gm PO UD PRN PRN Reason: Hypoglycemia Protocol Stop: 03/30/22 20:34 Oxycodone HCl (Oxycodone Hcl Ir 5 Mg Tab (Immediate Release)) 5 mg PO TID PRN PRN Reason: Pain Stop: 03/14/22 21:56 Last Admin: 03/02/22 00:09 Dose: 5 mg Documented by: [facility]oprazole [facility] ([facility] 40 Mg [facility]) [facility] Protocol Stop: 03/31/22 06:29 Last Admin: 03/02/22 05:53 Dose: Not Given Documented by: Rifaximin (Rifaximin 550 Mg Tablet) 550 mg PO [facility] Stop: 03/30/22 20:59 Last Admin: 03/02/22 08:29 Dose: 550 mg Documented by: Spironolactone (Spironolactone 100 Mg Tab) 100 mg PO [facility] Stop: 03/31/22 08:59 Last Admin: 03/02/22 08:28 Dose: 100 mg Documented by:
[2022-03-02] MEDS: ATORVASTATIN 40 MG TAB PO SCH (21:12)
[2022-03-02] MEDS: cefTRIAXone SODIUM 2,000 MG in DEXTROSE 5% 50 ML IV SCH (21:12)
[2022-03-02] MEDS: CITALOPRAM 40 MG TAB PO SCH (21:13)
[2022-03-03] MEDS: PANTOprazole 40 MG TAB PO SCH (05:50)
[2022-03-03] MEDS: HEPARIN SOD 5,000 UNIT/0.5 ML VIAL SQ SCH ×3 (05:50→21:47)
[2022-03-03 07:29] LABS: BUN Creatinine Ratio 36.2 (10-20); Creatinine Clr Calc Pharmacy 32.8 ml/min; Est GFR (African American) 43.3 ml/min; Est GFR (Non-African American) 37.4 ml/min; Magnesium 1.8 mg/dl (1.7-2.4); Phosphorus 3.4 mg/dl (2.5-4.9); Potassium 4.3 mmol/L (3.5-5.1)
[2022-03-03] MEDS: INSULIN ASPART PER UNIT SC SCH ×4 (08:34→20:31)
[2022-03-03] MEDS: ASPIRIN 81 MG ECTAB PO SCH (08:35)
[2022-03-03] MEDS: DOXYCYCLINE HYCLATE 100 MG in DEXTROSE 5% 100 ML IV SCH ×2 (08:35→21:46)
[2022-03-03] MEDS: SPIRONOLACTONE 100 MG TAB PO SCH (08:36)
[2022-03-03] MEDS: FERROUS GLUCONATE 324 MG TAB PO SCH ×2 (08:36→21:46)
[2022-03-03] MEDS: GABAPENTIN 800 MG TAB PO SCH ×3 (08:36→21:45)
[2022-03-03] MEDS: allopurinoL 300 MG TAB PO SCH (08:36)
[2022-03-03] MEDS: FOLIC ACID 1 MG TAB PO SCH (08:36)
[2022-03-03] MEDS: rifAXIMin 550 MG TABLET PO SCH ×3 (08:37→21:55)
[2022-03-03] MEDS: FUROSEMIDE 40 MG/4 ML VIAL IV SCH ×2 (08:40→17:15)
--- NOTE | 2022-03-03 11:14 | Nephrology Progress Note ---
Date of Service March 03, 2022 Assessment & Plan (1) CKD (chronic kidney disease), stage III: Plan: She is know to be non protenuric CKD 3b with baseline Scr 1.4 --1.6 Her renal functions are at baseline and she is comfortable with the present does of lasix.Agree with the current dose, This is managed by Cardiology and leave this to them - She has mild hyponatremia , which is secondary to fluid overload which will improve with Volume optimization. - No new recommendation from Nephrology - She can follow with Dr Ferrell(non urgent) with repeat BMP in 3- 4 weeks time. (2) Combined systolic and diastolic congestive heart failure: Plan: As above. Daily weights, strict I's and O's, low Na+ diet, 2 L fluid restriction Echo 09/2020-EF 40 to 45%, grade 2 diastolic dysfunction, moderate aortic stenosis, mild aortic regurgitation, mild mitral stenosis, severe mitral regurgitation Repeat TTE show EF of 30-35%, LV is moderately dilated, severe MR, mod MS, LA mod dilated - Cardiology on board, (3) Cellulitis: Plan: Right anterior swan wound in the setting of severe PVD No signs of sepsis Venous Doppler shows greater saphenous vein graft that appears patent On antibiotics for cellulitis Wound care (4) COPD (chronic obstructive pulmonary disease): Plan: No signs of exerbation (5) HINKLE (nonalcoholic steatohepatitis): Admission and Anticipated Discharge Date Admission Date: February 28, 2022 Subjective Comfortable, Lower leg edema has improved per her description. No chest pains or discomfort. Review of Systems Review of Systems: All systems reviewed & are unremarkable except as noted in Subjective Physical Exam Physical Exam: General Appearance:Moderately built and nourished, chronic ill appearing, no apparent distress Head: normocephalic, Atraumatic Eyes: normal inspection, EOMI Neck: supple, Trachea midline Respiratory/Chest: Decreased breath sounds, +Basal Crackles Cardiovascular: S1, S2, + murmur Abdomen/GI:Soft, distended, mild tender, Bowel sounds present Extremities/Musculoskeletal:normal inspection, Left BKA, + multiple bruises Neurologic/Psych:AAOX3, grossly no focal neurological deficits Skin: normal color, warm Results & Data ([facility]) Vital Signs (Past 12 Hours) Vital Signs Temp Pulse Pulse Resp BP BP Pulse Ox 03/03/22 07:27 73 03/03/22 07:24 36.4 C L 72 18 112/69 98 03/03/22 03:31 37.1 C 74 18 105/68 90 03/03/22 01:23 73 03/02/22 23:36 36.8 C 75 16 103/67 95 Laboratory Results 03/02/22 08:02 03/03/22 06:31
--- NOTE | 2022-03-03 11:46 | Cardiology Progress Note ---
Date of Service March 03, 2022 Assessment & Plan (1) Combined systolic and diastolic congestive heart failure: (2) Ischemic cardiomyopathy: (3) Valvular heart disease: (4) Volume overload: (5) Elevated troponin: (6) PAD (peripheral artery disease): Plan: Peripheral arterial disease with left BKA and bilateral carotid endarterectomies. (7) HINKLE (nonalcoholic steatohepatitis): Plan: HINKLE, Cirrhosiswith recurrent ascites requiring paracentesis in the past. Plan: Acute on chronic decompensated systolic and diastolic heart failure now slowly responding to IV diuretics. Continue therapies as ordered including IV diuretics for additional 24 hours. Follow sodiums. Suspect patient will warrant oxygen supplementation Admission and Anticipated Discharge Date Admission Date: February 28, 2022 Subjective Patient seen and examined, chart, medications, telemetry reviewed. Patient awakened from sleep without acute complaint. Has continued to manifest gradual diuresis though with still mild volume overload. No chest pains, dizziness, lightheadedness. Sleeping lying flat. Good oxygenation but on 2 L nasal cannula Review of Systems Review of Systems: All systems reviewed & are unremarkable except as noted in Subjective Physical Exam Constitutional: + obese; no acute distress Eyes: PERRL, conjunctivae normal, anicteric sclerae ENMT: external ear and nose normal, oropharynx normal Neck: trachea midline, no thyromegaly Respiratory: Auscultation: + diminished lung sounds Cardiovascular: Rate/Rhythm: regular rate and regular rhythm Heart Sounds: + murmur (Grade 2/6 to 3/6 systolic murmur) Extremities: + edema (1-2+ greatest length leg BKA stump) Gastrointestinal (Abdomen): Percussion/Palpation: abdomen soft; abdomen nontender Results & Data ([facility]) Vital Signs (Past 12 Hours) Vital Signs Temp Pulse Pulse Resp BP BP Pulse Ox 03/03/22 07:27 73 03/03/22 07:24 36.4 C L 72 18 112/69 98 03/03/22 03:31 37.1 C 74 18 105/68 90 03/03/22 01:23 73 Laboratory Results Laboratory Results - last 24 hr 03/02/22 03/02/22 03/02/22 11:44 16:35 20:19 Sodium Potassium Chloride Carbon Dioxide Anion Gap BUN Creatinine Est Cr Clr Drug Dosing Est GFR ( Amer) Est GFR (Non-Af Amer) BUN/Creatinine Ratio Glucose POC Glucose 185 H 138 H 119 H Calcium Phosphorus Magnesium 03/03/22 03/03/22 03/03/22 06:31 07:31 11:26 Sodium 128 L Potassium 4.3 Chloride 89 L Carbon Dioxide 30 Anion Gap 9 BUN 51 H Creatinine 1.41 H Est Cr Clr Drug Dosing 32.8 Est GFR ( Amer) 43.3 Est GFR (Non-Af Amer) 37.4 BUN/Creatinine Ratio 36.2 H Glucose 116 H POC Glucose 128 H 215 H Calcium 9.0 Phosphorus 3.4 Magnesium 1.8
--- NOTE | 2022-03-03 12:01 | Hospitalist Progress Note ---
Date of Service March 03, 2022 Assessment & Plan (1) Volume overload: (2) Combined systolic and diastolic congestive heart failure: (3) Valvular heart disease: (4) HINKLE (nonalcoholic steatohepatitis): Plan: Patient presented by referral PCPs office for evaluation of shortness of breath, worsening abdominal distention In the ED, imaging suggestive of volume overload likely multifactorial due to chronic systolic and diastolic CHF, valvular heart disease, HINKLE CT ABD/pelvis showing small bilateral pleural effusions, small amount of ascites, evidence of anasarca BNP 2529 Troponin 41>42>48 Acute on chronic systolic diastolic heart failure Continue IV lasix Daily weights, strict I's and O's, low Na+ diet, 2 L fluid restriction Echo 09/2020-EF 40 to 45%, grade 2 diastolic dysfunction, moderate aortic stenosis, mild aortic regurgitation, mild mitral stenosis, severe mitral regurgitation TTE this admission showed EF of 30-35%, LV is moderately dilated, severe MR, mod MS, LA mod dilated Continue IV lasix 40mg bid Cardiology and nephrology recs appreciated Wean oxygen. Will need 2 step prior to dc Continue rifaximin (5) Leg wound, right: Plan: Right anterior swan wound in the setting of severe PVD No signs of sepsis Venous Doppler shows greater saphenous vein graft that appears patent On antibiotics for cellulitis Wound care (6) PAD (peripheral artery disease): (7) CAD (coronary artery disease): (8) Elevated troponin: Plan: Troponin 41>42>48 No reports of chest pain Continue ASA, statin, beta-alma (9) Diarrhea: Plan: Seems to be a chronic issue C. difficile and stool PCR negative (10) COPD (chronic obstructive pulmonary disease): Plan: No signs of acute exacerbation (11) CKD (chronic kidney disease), stage III: Plan: Baseline creatinine mid 1's Creatinine 1.4 today (12) Diabetes mellitus type 2, diet-controlled: Plan: Hgb A1c 6.9 10/2021, A1c today 03/01/22 6.6 (13) Bladder cancer: Plan: History Had screening cystoscopy on 02/27/22 that showed recurrence of cancer Patient scheduled for TURBT in March (14) DVT prophylaxis: Plan: SQ heparin Admission and Anticipated Discharge Date Admission Date: February 28, 2022 Subjective 71 yo F with h/o Charcot foot, DM type II with peripheral neuropathy, alpha 1 antitrypsin deficiency, COPD, bilateral carotid artery disease, chronic systolic and diastolic CHF with valvular disease, CAD, HTN, HINKLE, bladder cancer s/p tumor resection, vaginal intraepithelial neoplasia 3, PAD, CKD stage III, SARANYA, rheumatoid arthritis, s/p left BKA, depression, tobacco use who presents with SOB. Being managed for acute on chronic systolic diastolic heart failure. Patient seen and examined Reports feeling better today with respect to abd fullness and cough Denied shortness of breath at rest Denied any chest pain Denied nausea, vomiting, abd pain, diarrhea Denied dysuria, freq, hematuria Physical Exam Constitutional: + well hydrated and + obese; no acute distress Eyes: PERRL, conjunctivae normal, anicteric sclerae ENMT: external ear and nose normal, oropharynx normal Respiratory: Not in respiratory distress, on nasal cannula, diminished breath sounds Cardiovascular: Rate/Rhythm: regular rate and regular rhythm Heart Sounds: + murmur S1 S2 Gastrointestinal (Abdomen): normal bowel sounds, soft, nontender, no hepatosplenomegaly Musculoskeletal: Left BKA. Stasis changes, Rt anterior swan wound with erythema Neurologic: PERRL, EOMI, accommodation nl, no face palsy, no dysarthria Results & Data Results & Data ([facility]) Vital Signs (Past 12 Hours) Vital Signs Temp Pulse Pulse Resp BP BP Pulse Ox 03/03/22 07:27 73 03/03/22 07:24 36.4 C L 72 18 112/69 98 03/03/22 03:31 37.1 C 74 18 105/68 90 03/03/22 01:23 73 Laboratory Results Abnormal lab results 03/02/22 03/02/22 03/03/22 Range/Units 16:35 20:19 06:31 Sodium 128 L (136-145) mmol/L Chloride 89 L (98-107) mmol/L BUN 51 H (6-23) mg/dl Creatinine 1.41 H (0.6-1.2) mg/dl BUN/Creatinine Ratio 36.2 H (10-20) Glucose 116 H (70-99(Fasting)) mg/dl POC Glucose 138 H 119 H (70-99) mg/dl 03/03/22 03/03/22 Range/Units 07:31 11:26 Sodium (136-145) mmol/L Chloride (98-107) mmol/L BUN (6-23) mg/dl Creatinine (0.6-1.2) mg/dl BUN/Creatinine Ratio (10-20) Glucose (70-99(Fasting)) mg/dl POC Glucose 128 H 215 H (70-99) mg/dl
[2022-03-03] MEDS ORDERED: FUROSEMIDE INJ 20 MG/2 ML VIAL IV ONE (13:14)
[2022-03-03] MEDS: METOPROLOL SUCC 25MG EXT REL TAB PO SCH (17:14)
[2022-03-03] MEDS: ATORVASTATIN 40 MG TAB PO SCH (21:45)
[2022-03-03] MEDS: CITALOPRAM 40 MG TAB PO SCH (21:45)
[2022-03-03] MEDS: cefTRIAXone SODIUM 2,000 MG in DEXTROSE 5% 50 ML IV SCH (21:46)
[2022-03-04 06:02] LABS: Mean Corpuscular Hgb Conc 32.2 g/dL (32-36)
[2022-03-04] MEDS: PANTOprazole 40 MG TAB PO SCH (06:03)
[2022-03-04] MEDS: HEPARIN SOD 5,000 UNIT/0.5 ML VIAL SQ SCH ×3 (06:04→21:54)
[2022-03-04 06:12] LABS: Hematocrit (blood only) 42.5 % (37-47); Hemoglobin 13.7 g/dL (12.0-16.0); Mean Corpuscular Hemoglobin 28.2 pg (25-34); Mean Corpuscular Volume 87.4 fL (80-100); RDW Standard Deviation 63.5 fL (36.4-46.3); Red Blood Count 4.86 M/uL (4.2-5.4); White Blood Count 5.47 K/uL (4.8-10.8)
[2022-03-04 06:26] LABS: Platelet Count 101 K/uL (130-400); Platelet Estimate Decreased (Normal)
[2022-03-04 06:39] LABS: BUN Creatinine Ratio 41.8 (10-20); Calcium 9.2 mg/dl (8.5-10.1); Est GFR (African American) 51.6 ml/min; Est GFR (Non-African American) 44.5 ml/min; Magnesium 1.8 mg/dl (1.7-2.4); Phosphorus 3.6 mg/dl (2.5-4.9); Potassium 4.5 mmol/L (3.5-5.1)
[2022-03-04] MEDS: INSULIN ASPART PER UNIT SC SCH ×4 (08:20→22:13)
[2022-03-04] MEDS: SPIRONOLACTONE 100 MG TAB PO SCH (09:16)
[2022-03-04] MEDS: DOXYCYCLINE HYCLATE 100 MG in DEXTROSE 5% 100 ML IV SCH (09:16)
[2022-03-04] MEDS: FERROUS GLUCONATE 324 MG TAB PO SCH ×2 (09:16→21:55)
[2022-03-04] MEDS: FOLIC ACID 1 MG TAB PO SCH (09:16)
[2022-03-04] MEDS: GABAPENTIN 800 MG TAB PO SCH ×3 (09:17→21:54)
[2022-03-04] MEDS: FUROSEMIDE 40 MG/4 ML VIAL IV SCH ×3 (09:17→21:54)
[2022-03-04] MEDS: rifAXIMin 550 MG TABLET PO SCH ×2 (09:17→21:55)
[2022-03-04] MEDS: ASPIRIN 81 MG ECTAB PO SCH (09:17)
[2022-03-04] MEDS: allopurinoL 300 MG TAB PO SCH (09:18)
--- NOTE | 2022-03-04 10:14 | Nephrology Progress Note ---
Date of Service March 04, 2022 Assessment & Plan Admission and Anticipated Discharge Date Admission Date: February 28, 2022 Subjective Assessment & Plan (1) CKD (chronic kidney disease), stage III: Plan: She is know to be non protenuric CKD 3b with baseline Scr 1.4 --1.6 Her renal functions are at baseline but na going down. - She has mild hyponatremia , which is secondary to fluid overload and has been going down. raise lasix to 40 tid. Lower fluid limit to 1500 ml per day (2) Combined systolic and diastolic congestive heart failure: Plan: As above. Daily weights, strict I's and O's, low Na+ diet, 1.5 L fluid restriction Echo 09/2020-EF 40 to 45%, grade 2 diastolic dysfunction, moderate aortic stenosis, mild aortic regurgitation, mild mitral stenosis, severe mitral regurgitation Repeat TTE show EF of 30-35%, LV is moderately dilated, severe MR, mod MS, LA mod dilated (3) Cellulitis: Plan: Right anterior swan wound in the setting of severe PVD No signs of sepsis Venous Doppler shows greater saphenous vein graft that appears patent On antibiotics for cellulitis Wound care (4) COPD (chronic obstructive pulmonary disease): Plan: No signs of exerbation Subjective Comfortable, Lower leg edema has improved per her description. No chest pains or discomfort. Review of Systems Review of Systems: All systems reviewed & are unremarkable except as noted in Subjective Physical Exam Physical Exam: General Appearance:Moderately built and nourished, chronic ill appearing, no apparent distress Head: normocephalic, Atraumatic Eyes: normal inspection, EOMI Neck: supple, Trachea midline Respiratory/Chest: Decreased breath sounds, +Basal Crackles Cardiovascular: S1, S2, + murmur Abdomen/GI:Soft, distended, mild tender, Bowel sounds present Extremities/Musculoskeletal:normal inspection, Left BKA, + multiple bruises Neurologic/Psych:AAOX3, grossly no focal neurological deficits Skin: normal color, warm Results & Data ([facility]) Vital Signs (Past 12 Hours) Vital Signs Temp Pulse Pulse Resp BP Pulse Ox 03/04/22 08:14 96 03/04/22 07:34 36.7 C 74 18 111/68 96 03/04/22 07:04 73 03/04/22 04:21 36.9 C 73 18 116/73 92 03/04/22 01:37 70 03/03/22 23:28 36.8 C 70 18 114/66 98
--- NOTE | 2022-03-04 10:38 | Cardiology Progress Note ---
Date of Service March 04, 2022 Assessment & Plan (1) Combined systolic and diastolic congestive heart failure: (2) Ischemic cardiomyopathy: (3) Valvular heart disease: (4) Volume overload: (5) Elevated troponin: (6) PAD (peripheral artery disease): Plan: Peripheral arterial disease with left BKA and bilateral carotid endarterectomies. (7) HINKLE (nonalcoholic steatohepatitis): Plan: HINKLE, Cirrhosiswith recurrent ascites requiring paracentesis in the past. Plan: Patient admitted for volume overload, consistent with acute on chronic decompensated systolic and diastolic heart failure. Down on 7 kg since admission with improvement in her volume status. Sodium trending lower. Fluid restriction enabled. Nephrology following and diuretics increased this morning. Remains on supplemental O2. Oxygen saturations 96%. Can try to wean as tolerated. Update chest xray this morning Continue all other home medications including ASA, statin, metoprolol, spironolactone. Monitor I+O's. Will follow. Discussed with Dr. Worthy Admission and Anticipated Discharge Date Admission Date: February 28, 2022 Supervising Physician Co-Signing Physician Notes I have seen and evaluated the patient. I reviewed the medical record and discussed the case with Sunny Paddy. I agree with the plan as outlined above. Subjective Patient evaluated this morning while laying supine. No orthopnea, PND. Edema improved b/l. No complaints of SOB. Remains on supplemental O2, but 96% on RA. Voices no concerns at this time. Sodium continues to trend lower. Down 7 kg since admission. No chest pain. No dizziness. Review of Systems Review of Systems: All systems reviewed & are unremarkable except as noted in HPI & below Physical Exam Constitutional: + obese; no acute distress Eyes: PERRL, conjunctivae normal, anicteric sclerae ENMT: external ear and nose normal, oropharynx normal Neck: trachea midline, no thyromegaly Respiratory: Auscultation: + wheezes (scattered expiratory wheeze) Cardiovascular: Rate/Rhythm: regular rate and regular rhythm Heart Sounds: + murmur (Grade 2/6 to 3/6 systolic murmur) Extremities: + edema (No signific ant edema b/l. Left below knee amputation) Gastrointestinal (Abdomen): Percussion/Palpation: abdomen soft; abdomen nontender Neurologic: PERRL, EOMI, accommodation nl, no face palsy, no dysarthria Results & Data ([facility]) Vital Signs (Past 12 Hours) Vital Signs Temp Pulse Pulse Resp BP Pulse Ox 03/04/22 08:14 96 03/04/22 07:34 36.7 C 74 18 111/68 96 03/04/22 07:04 73 03/04/22 04:21 36.9 C 73 18 116/73 92 03/04/22 01:37 70 03/03/22 23:28 36.8 C 70 18 114/66 98 Laboratory Results 03/04/22 03/04/22 03/04/22 Range/Units 07:07 05:51 05:51 WBC 5.47 (4.8-10.8) K/uL RBC 4.86 (4.2-5.4) M/uL Hgb 13.7 (12.0-16.0) g/dL Hct 42.5 (37-47) % MCV 87.4 (80-100) fL MCH 28.2 (25-34) pg MCHC 32.2 (32-36) g/dL RDW Std Deviation 63.5 H (36.4-46.3) fL RDW Coeff of Tiburcio 20.0 H (11.5-14.5) % Plt Count 101 L (130-400) K/uL Platelet Estimate Decreased L (Normal) Sodium 127 L (136-145) mmol/L Potassium 4.5 (3.5-5.1) mmol/L Chloride 89 L (98-107) mmol/L Carbon Dioxide 28 (21-32) mmol/L Anion Gap 10 (3-11) BUN 51 H (6-23) mg/dl Creatinine 1.22 H (0.6-1.2) mg/dl Est Cr Clr Drug Dosing 38.0 ml/min Est GFR ( Amer) 51.6 ml/min Est GFR (Non-Af Amer) 44.5 ml/min BUN/Creatinine Ratio 41.8 H (10-20) Glucose 111 H (70-99(Fasting)) mg/dl POC Glucose 128 H (70-99) mg/dl Calcium 9.2 (8.5-10.1) mg/dl Phosphorus 3.6 (2.5-4.9) mg/dl Magnesium 1.8 (1.7-2.4) mg/dl 03/03/22 03/03/2203/03/22 Range/Units 20:26 16:30 11:26 WBC (4.8-10.8) K/uL RBC (4.2-5.4) M/uL Hgb (12.0-16.0) g/dL Hct (37-47) % MCV (80-100) fL MCH (25-34) pg MCHC (32-36) g/dL RDW Std Deviation (36.4-46.3) fL RDW Coeff of Tiburcio (11.5-14.5) % Plt Count (130-400) K/uL Platelet Estimate (Normal) Sodium (136-145) mmol/L Potassium (3.5-5.1) mmol/L Chloride (98-107) mmol/L Carbon Dioxide (21-32) mmol/L Anion Gap (3-11) BUN (6-23) mg/dl Creatinine (0.6-1.2) mg/dl Est Cr Clr Drug Dosing ml/min Est GFR ( Amer) ml/min Est GFR (Non-Af Amer) ml/min BUN/Creatinine Ratio (10-20) Glucose (70-99(Fasting)) mg/dl POC Glucose 126 H 144 H 215 H (70-99) mg/dl Calcium (8.5-10.1) mg/dl Phosphorus (2.5-4.9) mg/dl Magnesium (1.7-2.4) mg/dl Diagnostic Findings Telemetry reviewed: Normal sinus rhythm. HR's 60-70's Medications Administered Current Inpatient Medications Acetaminophen (Acetaminophen 325 Mg Tab) 650 mg PO Q4H PRN PRN Reason: Pain or Fever Stop: 03/30/22 20:34 Albuterol (Albut/Ipratrop 3mg/0.5mg Neb 3 Ml Vial) 3 ml INH Q6R PRN; Protocol PRN Reason: Shortness Of Breath Stop: 03/30/22 20:34 Allopurinol (Allopurinol 300 Mg Tab) [facility] [place] Stop: 03/31/22 08:59 Last Admin: 03/04/22 09:18 Dose: 300 mg Documented by: Aspirin (Aspirin 81 Mg Ectab) 81 mg PO QAM [facility] Stop: 03/31/22 08:59 Last Admin: 03/04/22 09:17 Dose: 81 mg Documented by: Atorvastatin Calcium (Atorvastatin 40 Mg Tab) 80 mg PO HS [facility] Stop: 03/30/22 20:59 Last Admin: 03/03/22 21:45 Dose: 80 mg Documented by: Citalopram Hydrobromide (Citalopram 40 Mg Tab) 40 mg PO HS [facility] Stop: 03/30/22 20:59 Last Admin: 03/03/22 21:45 Dose: 40 mg Documented by: Dextrose (Dextrose 50% 50 Ml Syringe) 25 - 50 ml IV UD PRN; Protocol PRN Reason: Hypoglycemia Protocol Stop: 03/30/22 20:34 Ferrous Gluconate (Ferrous Gluconate 324 Mg Tab) 324 mg PO BID [facility] Stop: 03/30/22 20:59 Last Admin: 03/04/22 09:16 Dose: 324 mg Documented by: Folic Acid (Folic Acid 1 Mg Tab) 1 mg PO QAM [facility] Stop: 03/31/22 08:59 Last Admin: 03/04/22 09:16 Dose: 1 mg Documented by: Furosemide (Furosemide 40 Mg/4 Ml Vial) 40 mg IV TID [facility] Stop: 04/03/22 13:59 Gabapentin (Gabapentin 800 Mg Tab) 800 mg PO TID [facility] Stop: 03/30/22 20:59 Last Admin: 03/04/22 09:17 Dose: 800 mg Documented by: Glucagon (Glucagon For Inj 1 Mg Vial) 1 mg SQ UD PRN; Protocol PRN Reason: Hypoglycemia Protocol Stop: 03/30/22 20:34 Glucose (Glucose 10 Tabs/Tube) 4 - 8 tabs PO UD PRN; Protocol PRN Reason: Hypoglycemia Protocol Stop: 03/30/22 20:34 Glucose (Glucose 40% Gel 15 Gm Tube) 15 - 30 gm PO UD PRN; Protocol PRN Reason: Hypoglycemia Protocol Stop: 03/30/22 20:34 Heparin Sodium (Porcine) (Heparin Sod 5,000 Unit/0.5 Ml Vial) 5,000 units SQ Q8 [facility] Stop: 03/30/22 21:59 Last Admin: 03/04/22 06:04 Dose: Not Given Documented by: Doxycycline Hyclate 100 mg/ (Dextrose) 110 mls @ 50 mls/hr IV Q12H [facility] Stop: 03/07/22 20:59 Last Admin: 03/04/22 09:16 Dose: 50 mls/hr Documented by: Ceftriaxone Sodium 2,000 mg/ (Dextrose) 70 mls @ 100 mls/hr IV Q24H [facility]; Protocol Stop: 03/07/22 20:59 Last Infusion: 03/03/22 22:30 Dose: Infused Documented by: Insulin Aspart (Insulin Aspart Per Unit) 0 units SC ACHS [facility] Stop: 03/30/22 20:59 Last Admin: 03/04/22 08:20 Dose: Not Given Documented by: Metoprolol Succinate (Metoprolol Succ 25mg Ext Rel Tab) 12.5 mg PO DAILY@1530 [facility] Stop: 03/31/22 15:29 Last Admin: 03/03/22 17:14 Dose: 12.5 mg Documented by: Miscellaneous (Carbohydrates For Hypoglycemia ) 15 - 30 gm PO UD PRN PRN Reason: Hypoglycemia Protocol Stop: 03/30/22 20:34 Oxycodone HCl (Oxycodone Hcl Ir 5 Mg Tab (Immediate Release)) 5 mg PO TID PRN PRN Reason: Pain Stop: 03/14/22 21:56 Last Admin: 03/02/22 00:09 Dose: 5 mg Documented by: Pantoprazole Sodium (Pantoprazole 40 Mg Tab) 40 mg PO DAILYBB [facility]; Protocol Stop: 03/31/22 06:29 Last Admin: 03/04/22 06:03 Dose: 40 mg Documented by: Rifaximin (Rifaximin 550 Mg Tablet) 550 mg PO [facility] Stop: 03/30/22 20:59 Last Admin: 03/04/22 09:17 Dose: 550 mg Documented by: Spironolactone (Spironolactone 100 Mg Tab) [facility] [place] Stop: 03/31/22 08:59 Last Admin: 03/04/22 09:16 Dose: 100 mg Documented by:
--- NOTE | 2022-03-04 11:04 | XRay Report ---
XR chest 1V portable CLINICAL HISTORY: re-evaluate CHF; hypoxia TECHNIQUE: Single frontal radiograph of the chest was obtained. Comparison: Comparison is made to chest one view 02/18/2029 2 FINDINGS: Left reversed total arthroplasty is seen. Cardiomegaly is noted. A left retrocardiac opacity cannot b e entirely excluded, although this may be secondary to cardiomegaly and limitations of technique. Mod erate pulmonary edema is again seen. No evidence of pleural effusion or pneumothorax. IMPRESSION: Moderate pulmonary edema, minimally increased from prior exam. Stable cardiomegaly. A left retrocardi ac opacity is equivocal. ACT 112: Negative or not required by law. Electronically signed by: Jacky Concepcion M.D. 03/04/2022 11:02 AM
--- NOTE | 2022-03-04 12:01 | Hospitalist Progress Note ---
Date of Service March 04, 2022 Assessment & Plan (1) Volume overload: (2) Combined systolic and diastolic congestive heart failure: (3) Valvular heart disease: (4) HINKLE (nonalcoholic steatohepatitis): Plan: Patient presented by referral PCPs office for evaluation of shortness of breath, worsening abdominal distention In the ED, imaging suggestive of volume overload likely multifactorial due to chronic systolic and diastolic CHF, valvular heart disease, HINKLE CT ABD/pelvis showing small bilateral pleural effusions, small amount of ascites, evidence of anasarca BNP 2529 Troponin 41>42>48 Acute on chronic systolic diastolic heart failure Daily weights, strict I's and O's, low Na+ diet, 2 L fluid restriction Echo 09/2020-EF 40 to 45%, grade 2 diastolic dysfunction, moderate aortic stenosis, mild aortic regurgitation, mild mitral stenosis, severe mitral regurgitation TTE this admission showed EF of 30-35%, LV is moderately dilated, severe MR, mod MS, LA mod dilated Hyponatremia likely due to hypervolemia Cardiology and nephrology recs appreciated IV lasix increased to 40mg TID today. Monitor Wean oxygen. Will need 2 step prior to dc Continue rifaximin (5) Leg wound, right: Plan: Right anterior swan wound in the setting of severe PVD No signs of sepsis Venous Doppler shows greater saphenous vein graft that appears patent On antibiotics for cellulitis to complete treatment Wound care (6) PAD (peripheral artery disease): (7) CAD (coronary artery disease): (8) Elevated troponin: Plan: Troponin 41>42>48 No reports of chest pain Continue ASA, statin, beta-alma (9) Diarrhea: Plan: Seems to be a chronic issue C. difficile and stool PCR negative (10) COPD (chronic obstructive pulmonary disease): Plan: No signs of acute exacerbation (11) CKD (chronic kidney disease), stage III: Plan: Baseline creatinine mid 1's Creatinine 1.22 today (12) Diabetes mellitus type 2, diet-controlled: Plan: Hgb A1c 6.9 10/2021, A1c today 03/01/22 6.6 (13) Bladder cancer: Plan: History Had screening cystoscopy on 02/27/22 that showed recurrence of cancer Patient scheduled for TURBT in March (14) DVT prophylaxis: Plan: SQ heparin Admission and Anticipated Discharge Date Admission Date: February 28, 2022 Subjective 71 yo F with h/o Charcot foot, DM type II with peripheral neuropathy, alpha 1 antitrypsin deficiency, COPD, bilateral carotid artery disease, chronic systolic and diastolic CHF with valvular disease, CAD, HTN, HINKLE, bladder cancer s/p tumor resection, vaginal intraepithelial neoplasia 3, PAD, CKD stage III, SARANYA, rheumatoid arthritis, s/p left BKA, depression, tobacco use who presents with SOB. Being managed for acute on chronic systolic diastolic heart failure. Patient seen and examined Reports cough is improved Denied shortness of breath at rest Denied any chest pain Denied nausea, vomiting, abd pain, diarrhea Denied dysuria, freq, hematuria Physical Exam Constitutional: + well hydrated and + obese; no acute distress Eyes: PERRL, conjunctivae normal, anicteric sclerae ENMT: external ear and nose normal, oropharynx normal Respiratory: Normal respiratory effort, diminished breath sounds Cardiovascular: Rate/Rhythm: regular rate and regular rhythm Heart Sounds: + murmur S1 S2 Gastrointestinal (Abdomen): normal bowel sounds, soft, nontender, no hepatosplenomegaly Musculoskeletal: Clean dressing over right leg wound Left BKA Neurologic: PERRL, EOMI, accommodation nl, no face palsy, no dysarthria Results & Data Results & Data ([facility]) Vital Signs (Past 12 Hours) Vital Signs Temp Pulse Pulse Resp BP Pulse Ox 03/04/22 08:14 96 03/04/22 07:34 36.7 C 74 18 111/68 96 03/04/22 07:04 73 03/04/22 04:21 36.9 C 73 18 116/73 92 03/04/22 01:37 70 Laboratory Results Abnormal lab results 03/03/22 03/03/22 03/04/22 Range/Units 16:30 20:26 05:51 RDW Std Deviation 63.5 H (36.4-46.3) fL RDW Coeff of Tiburcio 20.0 H (11.5-14.5) % Plt Count 101 L (130-400) K/uL Platelet Estimate Decreased L (Normal) Sodium (136-145) mmol/L Chloride (98-107) mmol/L BUN (6-23) mg/dl Creatinine (0.6-1.2) mg/dl BUN/Creatinine Ratio (10-20) Glucose (70-99(Fasting)) mg/dl POC Glucose 144 H 126 H (70-99) mg/dl 04/18/22 04/18/22 04/18/22 Range/Units 05:51 07:07 11:23 RDW Std Deviation (36.4-46.3) fL RDW Coeff of Tiburcio (11.5-14.5) % Plt Count (130-400) K/uL Platelet Estimate (Normal) Sodium 127 L (136-145) mmol/L Chloride 89 L (98-107) mmol/L BUN 51 H (6-23) mg/dl Creatinine 1.22 H (0.6-1.2) mg/dl BUN/Creatinine Ratio 41.8 H (10-20) Glucose 111 H (70-99(Fasting)) mg/dl POC Glucose 128 H 154 H (70-99) mg/dl
[2022-03-04] MEDS: oxyCODONE HCL IR 5 MG TAB (IMMEDIATE RELEASE) PO PRN (12:06)
[2022-03-04] MEDS: METOPROLOL SUCC 25MG EXT REL TAB PO SCH (17:20)
[2022-03-04] MEDS: ATORVASTATIN 40 MG TAB PO SCH (21:55)
[2022-03-04] MEDS: DOXYCYCLINE HYCLATE 100 MG CAP PO SCH (21:55)
[2022-03-04] MEDS: CITALOPRAM 40 MG TAB PO SCH (21:55)
[2022-03-05] MEDS: HEPARIN SOD 5,000 UNIT/0.5 ML VIAL SQ SCH ×3 (05:57→21:18)
[2022-03-05] MEDS: PANTOprazole 40 MG TAB PO SCH (05:57)
[2022-03-05] MEDS: GABAPENTIN 800 MG TAB PO SCH ×3 (07:33→21:53)
[2022-03-05] MEDS: allopurinoL 300 MG TAB PO SCH (07:33)
[2022-03-05] MEDS: DOXYCYCLINE HYCLATE 100 MG CAP PO SCH ×2 (07:33→21:52)
[2022-03-05] MEDS: SPIRONOLACTONE 100 MG TAB PO SCH (07:33)
[2022-03-05] MEDS: ASPIRIN 81 MG ECTAB PO SCH (07:33)
[2022-03-05] MEDS: FOLIC ACID 1 MG TAB PO SCH (07:33)
[2022-03-05] MEDS: FERROUS GLUCONATE 324 MG TAB PO SCH ×2 (07:34→21:52)
[2022-03-05] MEDS: rifAXIMin 550 MG TABLET PO SCH ×2 (07:34→21:52)
[2022-03-05] MEDS: FUROSEMIDE 40 MG/4 ML VIAL IV SCH ×3 (07:34→21:18)
[2022-03-05] MEDS: INSULIN ASPART PER UNIT SC SCH ×4 (08:44→21:53)
[2022-03-05 08:56] LABS: BUN Creatinine Ratio 35.4 (10-20); Calcium 9.2 mg/dl (8.5-10.1); Creatinine Clr Calc Pharmacy 31.4 ml/min; Est GFR (African American) 41.2 ml/min; Est GFR (Non-African American) 35.5 ml/min; Magnesium 1.9 mg/dl (1.7-2.4); Potassium 4.8 mmol/L (3.5-5.1)
--- NOTE | 2022-03-05 10:16 | Cardiology Progress Note ---
Date of Service March 05, 2022 Assessment & Plan (1) Combined systolic and diastolic congestive heart failure: (2) Ischemic cardiomyopathy: (3) Valvular heart disease: (4) Volume overload: (5) Elevated troponin: (6) PAD (peripheral artery disease): Plan: Peripheral arterial disease with left BKA and bilateral carotid endarterectomies. (7) HINKLE (nonalcoholic steatohepatitis): Plan: HINKLE, Cirrhosiswith recurrent ascites requiring paracentesis in the past. Plan: Patient admitted for volume overload, consistent with acute on chronic decompensated systolic and diastolic heart failure. Down on 7-8 kg since admission. Ongoing pulm edema on chest xray yesterday. Given CKD and hyponatremia, nephrology following. Diuretics increased yesterday. Tolerating. Mild rise in creatinine noted today Will follow. Fluid restriction encouraged. Continue all other home medications including ASA, statin, metoprolol, spironolactone. Not on JUAN JOSE/ARB due to low BP in the past. Likely would not tolerate Entresto. Monitor I+O's. Will follow. Discussed with Dr. Worthy Admission and Anticipated Discharge Date Admission Date: February 28, 2022 Supervising Physician Co-Signing Physician Notes I have seen and examined the patient. I discussed the case with Ms. Thomason and reviewed the medical record. I agree with the plan as outlined above. Subjective Patient resting in bed comfortably. Reports her SOB/cough has greatly improved. No fever or chills. She is pleased with progress in her edema as well. Feels she can get her prosthetic leg on her stump since swelling has improved. She denies chest pain. Voices no complaints. Review of Systems Review of Systems: All systems reviewed & are unremarkable except as noted in HPI & below Physical Exam Constitutional: + obese; no acute distress Eyes: PERRL, conjunctivae normal, anicteric sclerae ENMT: external ear and nose normal, oropharynx normal Neck: trachea midline, no thyromegaly Respiratory: Auscultation: + wheezes (scattered expiratory wheeze) Cardiovascular: Rate/Rhythm: regular rate and regular rhythm Heart Sounds: + murmur (Grade 2/6 to 3/6 systolic murmur) Extremities: no edema (No significant edema b/l. Left below knee amputation) Gastrointestinal (Abdomen): Percussion/Palpation: abdomen soft; abdomen nontender Neurologic: PERRL, EOMI, accommodation nl, no face palsy, no dysarthria Results & Data ([facility]) Vital Signs (Past 12 Hours) Vital Signs Temp Pulse Pulse Pulse Resp BP Pulse Ox 03/05/22 08:00 36.7 C 66 16 103/70 95 03/05/22 03:08 36.6 C 68 18 108/64 98 03/04/22 23:07 36.5 C 72 18 112/78 96 03/04/22 22:17 72 Laboratory Results 03/05/22 03/05/22 03/04/22 Range/Units 08:08 07:27 22:08 Sodium 128 L (136-145) mmol/L Potassium 4.8 (3.5-5.1) mmol/L Chloride 90 L (98-107) mmol/L Carbon Dioxide 30 (21-32) mmol/L Anion Gap 8 (3-11) BUN 52 H (6-23) mg/dl Creatinine 1.47 H (0.6-1.2) mg/dl Est Cr Clr Drug Dosing 31.4 ml/min Est GFR ( Amer) 41.2 ml/min Est GFR (Non-Af Amer) 35.5 ml/min BUN/Creatinine Ratio 35.4 H (10-20) Glucose 136 H (70-99(Fasting)) mg/dl POC Glucose 122 H 138 H (70-99) mg/dl Calcium 9.2 (8.5-10.1) mg/dl Phosphorus 4.0 (2.5-4.9) mg/dl Magnesium 1.9 (1.7-2.4) mg/dl 03/04/22 03/04/22 03/04/22 Range/Units 20:05 16:45 11:23 Sodium (136-145) mmol/L Potassium (3.5-5.1) mmol/L Chloride (98-107) mmol/L Carbon Dioxide (21-32) mmol/L Anion Gap (3-11) BUN (6-23) mg/dl Creatinine (0.6-1.2) mg/dl Est Cr Clr Drug Dosing ml/min Est GFR ( Amer) ml/min Est GFR (Non-Af Amer) ml/min BUN/Creatinine Ratio (10-20) Glucose (70-99(Fasting)) mg/dl POC Glucose 153 H 170 H 154 H (70-99) mg/dl Calcium (8.5-10.1) mg/dl Phosphorus (2.5-4.9) mg/dl Magnesium (1.7-2.4) mg/dl Diagnostic Findings Telemetry reviewed - NSR with occ PVC's. HR's 60-70s. No concerning arrhythmias Chest xray updated yesterday - IMPRESSION: Moderate pulmonary edema, minimally increased from prior exam. Stable cardiomegaly. A left retrocardiac opacity is equivocal Medications Administered Current Inpatient Medications Acetaminophen (Acetaminophen 325 Mg Tab) 650 mg PO Q4H PRN PRN Reason: Pain or Fever Stop: 03/30/22 20:34 Albuterol (Albut/Ipratrop 3mg/0.5mg Neb 3 Ml Vial) 3 ml INH Q6R PRN; Protocol PRN Reason: Shortness Of Breath Stop: 03/30/22 20:34 Allopurinol (Allopurinol 300 Mg Tab) 300 mg PO QAM [facility] Stop: 03/31/22 08:59 Last Admin: 03/05/22 07:33 Dose: 300 mg Documented by: Aspirin (Aspirin 81 Mg Ectab) 81 mg PO QAM [facility] Stop: 03/31/22 08:59 Last Admin: 03/05/22 07:33 Dose: 81 mg Documented by: Atorvastatin Calcium (Atorvastatin 40 Mg Tab) 80 mg PO [facility] Stop: 03/30/22 20:59 Last Admin: 03/04/22 21:55 Dose: 80 mg Documented by: Citalopram Hydrobromide (Citalopram 40 Mg Tab) 40 mg PO [facility] Stop: 03/30/22 20:59 Last Admin: 03/04/22 21:55 Dose: 40 mg Documented by: Dextrose (Dextrose 50% 50 Ml Syringe) 25 - 50 ml IV UD PRN; Protocol PRN Reason: Hypoglycemia Protocol Stop: 03/30/22 20:34 Doxycycline Hyclate (Doxycycline Hyclate 100 Mg Cap) 100 mg PO BID [facility] Stop: 03/07/22 20:59 Last Admin: 03/05/22 07:33 Dose: 100 mg Documented by: Ferrous Gluconate (Ferrous Gluconate 324 Mg Tab) 324 mg PO BID [facility] Stop: 03/30/22 20:59 Last Admin: 03/05/22 07:34 Dose: 324 mg Documented by: Folic Acid (Folic Acid 1 Mg Tab) 1 mg PO QAM [facility] Stop: 03/31/22 08:59 Last Admin: 03/05/22 07:33 Dose: 1 mg Documented by: Furosemide (Furosemide 40 Mg/4 Ml Vial) 40 mg IV TID [facility] Stop: 04/03/22 13:59 Last Admin: 03/05/22 07:34 Dose: 40 mg Documented by: Gabapentin (Gabapentin 800 Mg Tab) 800 mg PO TID [facility] Stop: 03/30/22 20:59 Last Admin: 03/05/22 07:33 Dose: 800 mg Documented by: Glucagon (Glucagon For Inj 1 Mg Vial) 1 mg SQ UD PRN; Protocol PRN Reason: Hypoglycemia Protocol Stop: 03/30/22 20:34 Glucose (Glucose 10 Tabs/Tube) 4 - 8 tabs PO UD PRN; Protocol PRN Reason: Hypoglycemia Protocol Stop: 03/30/22 20:34 Glucose (Glucose 40% Gel 15 Gm Tube) 15 - 30 gm PO UD PRN; Protocol PRN Reason: Hypoglycemia Protocol Stop: 03/30/22 20:34 Heparin Sodium (Porcine) (Heparin Sod 5,000 Unit/0.5 Ml Vial) 5,000 units SQ Q8 [facility] Stop: 03/30/22 21:59 Last Admin: 03/05/22 05:57 Dose: 5,000 units Documented by: Insulin Aspart (Insulin Aspart Per Unit) 0 units SC ACHS [facility] Stop: 03/30/22 20:59 Last Admin: 03/05/22 08:44 Dose: Not Given Documented by: Metoprolol Succinate (Metoprolol Succ 25mg Ext Rel Tab) 12.5 mg PO DAILY@1530 [facility] Stop: 03/31/22 15:29 Last Admin: 03/04/22 17:20 Dose: 12.5 mg Documented by: Miscellaneous (Carbohydrates For Hypoglycemia ) 15 - 30 gm PO UD PRN PRN Reason: Hypoglycemia Protocol Stop: 03/30/22 20:34 Oxycodone HCl (Oxycodone Hcl Ir 5 Mg Tab (Immediate Release)) 5 mg PO TID PRN PRN Reason: Pain Stop: 03/14/22 21:56 Last Admin: 03/04/22 12:06 Dose: 5 mg Documented by: Pantoprazole Sodium ([facility]razole 40 Mg Tab) [facility] Protocol Stop: 03/31/22 06:29 Last Admin: 03/05/22 05:57 Dose: 40 mg Documented by: Rifaximin (Rifaximin 550 Mg Tablet) 550 mg PO [facility] Stop: 03/30/22 20:59 Last Admin: 03/05/22 07:34 Dose: 550 mg Documented by: Spironolactone (Spironolactone 100 Mg Tab) 100 mg PO QAM [facility] Stop: 03/31/22 08:59 Last Admin: 03/05/22 07:33 Dose: 100 mg Documented by:
--- NOTE | 2022-03-05 11:58 | Hospitalist Progress Note ---
Date of Service March 05, 2022 Assessment & Plan (1) Volume overload: (2) Combined systolic and diastolic congestive heart failure: (3) Valvular heart disease: (4) HINKLE (nonalcoholic steatohepatitis): Plan: Patient presented by referral PCPs office for evaluation of shortness of breath, worsening abdominal distention In the ED, imaging suggestive of volume overload likely multifactorial due to chronic systolic and diastolic CHF, valvular heart disease, HINKLE CT ABD/pelvis showing small bilateral pleural effusions, small amount of ascites, evidence of anasarca BNP 2529 Troponin 41>42>48 Acute on chronic systolic diastolic heart failure Daily weights, strict I's and O's, low Na+ diet, 2 L fluid restriction Echo 09/2020-EF 40 to 45%, grade 2 diastolic dysfunction, moderate aortic stenosis, mild aortic regurgitation, mild mitral stenosis, severe mitral regurgitation TTE this admission showed EF of 30-35%, LV is moderately dilated, severe MR, mod MS, LA mod dilated Hyponatremia likely due to hypervolemia Cardiology and nephrology recs appreciated Nephrology managing diuretics Currently on IV lasix 40mg TID Fluid restriction Wean oxygen. Will need 2 step prior to dc Continue rifaximin (5) Leg wound, right: Plan: Right anterior swan wound in the setting of severe PVD No signs of sepsis Venous Doppler shows greater saphenous vein graft that appears patent On antibiotics for cellulitis to complete treatment Wound care (6) PAD (peripheral artery disease): (7) CAD (coronary artery disease): (8) Elevated troponin: Plan: Troponin 41>42>48 No reports of chest pain Continue ASA, statin, beta-alma (9) Diarrhea: Plan: Seems to be a chronic issue C. difficile and stool PCR negative (10) COPD (chronic obstructive pulmonary disease): Plan: No signs of acute exacerbation (11) CKD (chronic kidney disease), stage III: Plan: Baseline creatinine mid 1's Creatinine 1.47 today (12) Diabetes mellitus type 2, diet-controlled: Plan: Hgb A1c 6.9 10/2021, A1c today 03/01/22 6.6 (13) Bladder cancer: Plan: History Had screening cystoscopy on 02/27/22 that showed recurrence of cancer Patient scheduled for TURBT in March (14) DVT prophylaxis: Plan: SQ heparin Admission and Anticipated Discharge Date Admission Date: February 28, 2022 Subjective 71 yo F with h/o Charcot foot, DM type II with peripheral neuropathy, alpha 1 antitrypsin deficiency, COPD, bilateral carotid artery disease, chronic systolic and diastolic CHF with valvular disease, CAD, HTN, HIKNLE, bladder cancer s/p tumor resection, vaginal intraepithelial neoplasia 3, PAD, CKD stage III, SARANYA, rheumatoid arthritis, s/p left BKA, depression, tobacco use who presents with SOB. Being managed for acute on chronic systolic diastolic heart failure. Patient seen and examined Reports cough and shortness of breath much improved Denied any chest pain Denied nausea, vomiting, abd pain, diarrhea Denied dysuria, freq, hematuria Physical Exam Constitutional: + well hydrated and + obese; no acute distress Eyes: PERRL, conjunctivae normal, anicteric sclerae ENMT: external ear and nose normal, oropharynx normal Respiratory: normal respiratory effort; no respiratory distress Improved air entry, some rhonchi Cardiovascular: Rate/Rhythm: regular rate and regular rhythm Heart Sounds: + murmur S1 S2 Gastrointestinal (Abdomen): normal bowel sounds, soft, nontender, no hepatosplenomegaly Musculoskeletal: Clean dressing over right leg wound Left BKA Neurologic: PERRL, EOMI, accommodation nl, no face palsy, no dysarthria Results & Data Results & Data ([facility]) Vital Signs (Past 12 Hours) Vital Signs Temp Pulse Pulse Resp BP Pulse Ox 03/05/22 11:22 36.9 C 72 16 102/67 97 03/05/22 08:00 36.7 C 66 16 103/70 95 03/05/22 03:08 36.6 C 68 18 108/64 98 Laboratory Results Abnormal lab results 03/04/22 03/04/22 03/04/22 Range/Units 16:45 20:05 22:08 Sodium (136-145) mmol/L Chloride (98-107) mmol/L BUN (6-23) mg/dl Creatinine (0.6-1.2) mg/dl BUN/Creatinine Ratio (10-20) Glucose (70-99(Fasting)) mg/dl POC Glucose 170 H 153 H 138 H (70-99) mg/dl 03/05/22 03/05/22 03/05/22 Range/Units 07:27 08:08 11:34 Sodium 128 L (136-145) mmol/L Chloride 90 L (98-107) mmol/L BUN 52 H (6-23) mg/dl Creatinine 1.47 H (0.6-1.2) mg/dl BUN/Creatinine Ratio 35.4 H (10-20) Glucose 136 H (70-99(Fasting)) mg/dl POC Glucose 122 H 190 H (70-99) mg/dl
--- NOTE | 2022-03-05 14:44 | Nephrology Progress Note ---
Date of Service March 05, 2022 Assessment & Plan Admission and Anticipated Discharge Date Admission Date: February 28, 2022 Subjective Assessment & Plan (1) CKD (chronic kidney disease), stage III: Plan: She is know to be non protenuric CKD 3b with baseline Scr 1.4 --1.6 Her renal functions are at baseline but na going down. - She has mild hyponatremia , which is secondary to fluid overload and has been going down. Did not go down from yesterday. CXR shows CHF so continue lasix to 40 tid. Fluid limit to 1500 ml per day. Ok to diurese even if creat goes up a bit. Still within baseline of 1.4--1.6. No need to back off diuresis until creat is higher than 2. (2) Combined systolic and diastolic congestive heart failure: Plan: As above. Daily weights, strict I's and O's, low Na+ diet, 1.5 L fluid restriction Echo 09/2020-EF 40 to 45%, grade 2 diastolic dysfunction, moderate aortic stenosis, mild aortic regurgitation, mild mitral stenosis, severe mitral regurgitation Repeat TTE show EF of 30-35%, LV is moderately dilated, severe MR, mod MS, LA mod dilated (3) Cellulitis: Plan: Right anterior swan wound in the setting of severe PVD No signs of sepsis Venous Doppler shows greater saphenous vein graft that appears patent On antibiotics for cellulitis Wound care (4) COPD (chronic obstructive pulmonary disease): Plan: No signs of exacerbation Subjective Some SOB. Lower leg edema has improved per her description. No chest pains or discomfort. Review of Systems Review of Systems: All systems reviewed & are unremarkable except as noted in Subjective Physical Exam Physical Exam: General Appearance:Moderately built and nourished, chronic ill appearing, no apparent distress Head: normocephalic, Atraumatic Eyes: normal inspection, EOMI Neck: supple, Trachea midline Respiratory/Chest: Decreased breath sounds, +Basal Crackles Cardiovascular: S1, S2, + murmur Abdomen/GI:Soft, distended, mild tender, Bowel sounds present Extremities/Musculoskeletal:normal inspection, Left BKA, + multiple bruises Neurologic/Psych:AAOX3, grossly no focal neurological deficits Skin: normal color, warm Results & Data ([facility]) Vital Signs (Past 12 Hours) Vital Signs Temp Pulse Pulse Resp BP Pulse Ox 03/05/22 13:39 90 04/19/22 11:22 36.9 C 72 16 102/67 97 03/05/22 08:00 36.7 C 66 16 103/70 95 03/05/22 03:08 36.6 C 68 18 108/64 98
[2022-03-05] MEDS: METOPROLOL SUCC 25MG EXT REL TAB PO SCH (16:07)
[2022-03-05] MEDS: ATORVASTATIN 40 MG TAB PO SCH (21:52)
[2022-03-05] MEDS: CITALOPRAM 40 MG TAB PO SCH (21:53)
[2022-03-06] MEDS: HEPARIN SOD 5,000 UNIT/0.5 ML VIAL SQ SCH ×3 (06:31→21:04)
[2022-03-06] MEDS: PANTOprazole 40 MG TAB PO SCH (06:33)
[2022-03-06] MEDS: INSULIN ASPART PER UNIT SC SCH ×4 (08:07→20:32)
[2022-03-06] MEDS: SPIRONOLACTONE 100 MG TAB PO SCH (08:09)
[2022-03-06] MEDS: allopurinoL 300 MG TAB PO SCH (08:09)
[2022-03-06] MEDS: GABAPENTIN 800 MG TAB PO SCH ×3 (08:09→20:32)
[2022-03-06] MEDS: DOXYCYCLINE HYCLATE 100 MG CAP PO SCH ×2 (08:10→20:32)
[2022-03-06] MEDS: FERROUS GLUCONATE 324 MG TAB PO SCH ×2 (08:10→20:32)
[2022-03-06] MEDS: FOLIC ACID 1 MG TAB PO SCH (08:10)
[2022-03-06] MEDS: rifAXIMin 550 MG TABLET PO SCH ×2 (08:11→20:33)
[2022-03-06] MEDS: ASPIRIN 81 MG ECTAB PO SCH (08:12)
[2022-03-06] MEDS: FUROSEMIDE 40 MG/4 ML VIAL IV SCH ×3 (08:34→20:37)
[2022-03-06 09:14] LABS: Mean Corpuscular Hgb Conc 31.8 g/dL (32-36)
[2022-03-06 09:19] LABS: Hematocrit (blood only) 43.1 % (37-47); Hemoglobin 13.7 g/dL (12.0-16.0); Mean Corpuscular Hemoglobin 27.7 pg (25-34); Mean Corpuscular Volume 87.2 fL (80-100); RDW Standard Deviation 62.8 fL (36.4-46.3); Red Blood Count 4.94 M/uL (4.2-5.4); White Blood Count 4.85 K/uL (4.8-10.8)
[2022-03-06 09:36] LABS: BUN Creatinine Ratio 34.8 (10-20); Calcium 9.2 mg/dl (8.5-10.1); Creatinine Clr Calc Pharmacy 29.9 ml/min; Est GFR (African American) 38.6 ml/min; Est GFR (Non-African American) 33.3 ml/min; Potassium 5.1 mmol/L (3.5-5.1)
[2022-03-06 09:43] LABS: Mean Platelet Volume 11.1 fL (7.4-10.4); Platelet Count 115 K/uL (130-400)
--- NOTE | 2022-03-06 10:24 | Nephrology Progress Note ---
Date of Service March 06, 2022 Assessment & Plan Admission and Anticipated Discharge Date Admission Date: February 28, 2022 Subjective Assessment & Plan (1) CKD (chronic kidney disease), stage III: Plan: She is know to be non protenuric CKD 3b with baseline Scr 1.4 --1.6 Her renal functions are at baseline but na going down. She has hyponatremia , which is secondary to fluid overload and has been going down. CXR shows CHF so continue lasix to 40 tid. Fluid limit to 1500 ml per day. Ok to diurese even if creat goes up a bit. Still within baseline of 1.4--1.6. No need to back off diuresis until creat is higher than 2. But given na now down to 125 will hold Aldactone ( Can lower na more than lasix) Hard to know how much urine is actually making--charted urine is not much at all. (2) Combined systolic and diastolic congestive heart failure: Plan: As above. Daily weights, strict I's and O's, low Na+ diet, 1.5 L fluid restriction Echo 09/2020-EF 40 to 45%, grade 2 diastolic dysfunction, moderate aortic stenosis, mild aortic regurgitation, mild mitral stenosis, severe mitral regurgitation Repeat TTE show EF of 30-35%, LV is moderately dilated, severe MR, mod MS, LA mod dilated (3) Cellulitis: Plan: Right anterior swan wound in the setting of severe PVD No signs of sepsis Venous Doppler shows greater saphenous vein graft that appears patent On antibiotics for cellulitis Wound care (4) COPD (chronic obstructive pulmonary disease): Plan: No signs of exacerbation Subjective Some SOB. Lower leg edema has improved per her description. No chest pains or discomfort. Review of Systems Review of Systems: All systems reviewed & are unremarkable except as noted in Subjective Physical Exam Physical Exam: General Appearance:Moderately built and nourished, chronic ill appearing, no apparent distress Head: normocephalic, Atraumatic Eyes: normal inspection, EOMI Neck: supple, Trachea midline Respiratory/Chest: Decreased breath sounds, +Basal Crackles Cardiovascular: S1, S2, + murmur Abdomen/GI:Soft, distended, mild tender, Bowel sounds present Extremities/Musculoskeletal:normal inspection, Left BKA, + multiple bruises Neurologic/Psych:AAOX3, grossly no focal neurological deficits Skin: normal color, warm Results & Data ([facility]) Vital Signs (Past 12 Hours) Vital Signs Temp Pulse Pulse Resp BP Pulse Ox 03/06/22 08:35 36.8 C 16 127/78 92 03/06/22 08:29 36.8 C 72 16 127/78 92 03/06/22 07:32 70 03/06/22 03:11 36.8 C 70 18 108/72 91 03/05/22 23:55 37.1 C 65 20 99/66 L 93
[2022-03-06] MEDS: METOPROLOL SUCC 25MG EXT REL TAB PO SCH (15:19)
--- NOTE | 2022-03-06 17:48 | Hospitalist Progress Note ---
Date of Service March 06, 2022 Assessment & Plan (1) Volume overload: (2) Combined systolic and diastolic congestive heart failure: (3) Valvular heart disease: (4) HINKLE (nonalcoholic steatohepatitis): Plan: Patient is a 71 yr female who presented by referral PCPs office for evaluation of shortness of breath, worsening abdominal distention Volume overload Acute on chronic systolic diastolic heart failure Likely multifactorial due to chronic systolic and diastolic CHF, valvular heart disease, HINKLE --CT ABD/pelvis showing small bilateral pleural effusions, small amount of ascites, evidence of anasarca --BNP 2529 --Troponin 41>42>48 --ECHO: Left ventricle is moderately dilated. EF 30 to 35%. Right ventricle systolic function is normal. Left atrium is moderately dilated. Moderate valvular aortic stenosis. Moderate to severe mitral annular calcification, severe mitral regurgitation and moderate mitral stenosis. Mild to moderate tricuspid regurgitation. Estimated pulmonary artery pressure 55 mmHg. --Monitor I's and O's, daily weight Continue IV diuretics as per nephrology Appreciate cardiology, nephrology input Low-sodium diet, fluid restriction Weaned off of supplemental oxygen Hyponatremia likely due to hypervolemia Fluid restriction Monitor sodium levels HINKLE Continue rifaximin Spironolactone on hold (5) Leg wound, right: Plan: Right anterior swan wound in the setting of severe PVD No signs of sepsis Venous Doppler shows greater saphenous vein graft that appears patent Continue Wound care On Doxycycline (6) PAD (peripheral artery disease): (7) CAD (coronary artery disease): (8) Elevated troponin: Plan: Troponin 41>42>48 No reports of chest pain Continue ASA, statin, beta-alma (9) Diarrhea: Plan: Seems to be a chronic issue C. difficile and stool PCR negative (10) COPD (chronic obstructive pulmonary disease): Plan: No signs of acute exacerbation (11) CKD (chronic kidney disease), stage III: Plan: Baseline creatinine mid 1's Creatinine 1.5 (12) Diabetes mellitus type 2, diet-controlled: Plan: Hgb A1c 6.9 10/2021, A1c today 03/01/22 6.6 (13) Bladder cancer: Plan: History Had screening cystoscopy on 02/27/22 that showed recurrence of cancer Patient scheduled for TURBT in March (14) DVT prophylaxis: Plan: SQ heparin Admission and Anticipated Discharge Date Admission Date: February 28, 2022 Subjective Patient is seen and examined at bedside Dyspnea slowly improving Reports chronic back pain Otherwise no complaints Denies any chest pain, dizziness, nausea, abdominal pain Review of Systems Review of Systems: All systems reviewed & are unremarkable except as noted in Subjective Physical Exam Physical Exam: Physical Exam: Vitals signs as noted above General Appearance:Moderately built and nourished, no apparent distress Head: normocephalic, Atraumatic Eyes: normal inspection, EOMI Neck: supple, Trachea midline Respiratory/Chest: Decreased breath sounds, B/L Scattered wheezing, No accessory muscle use Cardiovascular: S1, S2, + murmur Abdomen/GI:Soft, Non tender, Bowel sounds present Extremities/Musculoskeletal:normal inspection, Left BKA, Leg wound in dressing Neurologic/Psych:AAOX3, grossly no focal neurological deficits Skin: normal color, warm Results & Data Results & Data ([facility]) Vital Signs (Past 12 Hours) Vital Signs Temp Pulse Pulse Resp BP Pulse Ox 03/06/22 15:17 71 111/70 03/06/22 14:54 71 03/06/22 12:16 37.0 C 74 18 113/70 92 03/06/22 08:35 36.8 C 16 127/78 92 03/06/22 08:29 36.8 C 72 16 127/78 92 03/06/22 07:32 70 Laboratory Results Short CBC 03/06/22 Range/Units 08:05 WBC 4.85 (4.8-10.8) K/uL Hgb 13.7 (12.0-16.0) g/dL Hct 43.1 (37-47) % Plt Count 115 L (130-400) K/uL BMP 03/06/22 08:05 Sodium 125 L Potassium 5.1 Chloride 86 L Carbon Dioxide 31 BUN 54 H Creatinine 1.55 H Glucose 100 H Calcium 9.2
[2022-03-06] MEDS: CITALOPRAM 40 MG TAB PO SCH (20:31)
[2022-03-06] MEDS: ATORVASTATIN 40 MG TAB PO SCH (20:31)
[2022-03-06] MEDS: oxyCODONE HCL IR 5 MG TAB (IMMEDIATE RELEASE) PO PRN (21:03)
[2022-03-07 07:05] LABS: BUN Creatinine Ratio 35.3 (10-20); Calcium 9.1 mg/dl (8.5-10.1); Creatinine Clr Calc Pharmacy 30.4 ml/min; Est GFR (African American) 39.3 ml/min; Est GFR (Non-African American) 33.9 ml/min; Potassium 4.8 mmol/L (3.5-5.1)
[2022-03-07] MEDS: HEPARIN SOD 5,000 UNIT/0.5 ML VIAL SQ SCH ×4 (07:31→21:01)
[2022-03-07] MEDS: FUROSEMIDE 40 MG/4 ML VIAL IV SCH (07:31)
[2022-03-07] MEDS: PANTOprazole 40 MG TAB PO SCH (07:31)
[2022-03-07] MEDS: rifAXIMin 550 MG TABLET PO SCH ×2 (07:32→20:47)
[2022-03-07] MEDS: FOLIC ACID 1 MG TAB PO SCH (07:32)
[2022-03-07] MEDS: FERROUS GLUCONATE 324 MG TAB PO SCH ×2 (07:32→20:47)
[2022-03-07] MEDS: ASPIRIN 81 MG ECTAB PO SCH (07:32)
[2022-03-07] MEDS: GABAPENTIN 800 MG TAB PO SCH ×3 (07:32→20:47)
[2022-03-07] MEDS: DOXYCYCLINE HYCLATE 100 MG CAP PO SCH (07:32)
[2022-03-07] MEDS: allopurinoL 300 MG TAB PO SCH (07:33)
[2022-03-07] MEDS: INSULIN ASPART PER UNIT SC SCH ×4 (08:02→21:25)
--- NOTE | 2022-03-07 10:09 | Cardiology Progress Note ---
Date of Service March 07, 2022 Assessment & Plan (1) Combined systolic and diastolic congestive heart failure: (2) Ischemic cardiomyopathy: (3) Valvular heart disease: (4) Volume overload: (5) Elevated troponin: (6) PAD (peripheral artery disease): Plan: Peripheral arterial disease with left BKA and bilateral carotid endarterectomies. (7) HINKLE (nonalcoholic steatohepatitis): Plan: HINKLE, Cirrhosiswith recurrent ascites requiring paracentesis in the past. Plan: Patient admitted for volume overload, consistent with acute on chronic decompensated systolic and diastolic heart failure. Volume status improved since admission. Weight down. Edema improved. Given CKD and hyponatremia, nephrology following. IV furosemide increased due to hyponatremia. Spironolactone discontinued Per exam findings, patient approaching euvolemic state? Fluid restriction encouraged. Continue all other home medications including ASA, statin, metoprolol Not on JUAN JOSE/ARB due to low BP in the past. Likely would not tolerate Entresto. Monitor I+O's. May need supplemental O2 on discharge. PT/OT recommended Will follow. Discussed with Dr. Worthy Admission and Anticipated Discharge Date Admission Date: February 28, 2022 Supervising Physician Co-Signing Physician Notes I have seen and examined the patient. I have reviewed the medical record. I discussed the case with Ms. Thomason and agree with her plan. Subjective Patient resting in bed comfortably. Laying supine. No orhtopnea. Has difficulty staying awake this morning during conversation. Reports she is "so tired". Denies chest pain. Cough improved. No edema. Review of Systems Review of Systems: All systems reviewed & are unremarkable except as noted in HPI & below Physical Exam Constitutional: + obese; no acute distress Eyes: PERRL, conjunctivae normal, anicteric sclerae ENMT: external ear and nose normal, oropharynx normal Neck: trachea midline, no thyromegaly Respiratory: Auscultation: + wheezes (scattered expiratory wheeze) Cardiovascular: Rate/Rhythm: regular rate and regular rhythm Heart Sounds: + murmur (Grade 2/6 to 3/6 systolic murmur) Extremities: no edema (No significant edema b/l. Left below knee amputation) Gastrointestinal (Abdomen): Percussion/Palpation: abdomen soft; abdomen nontender Neurologic: PERRL, EOMI, accommodation nl, no face palsy, no dysarthria Results & Data ([facility]) Vital Signs (Past 12 Hours) Vital Signs Temp Pulse Pulse Resp BP BP Pulse Ox 03/07/22 07:56 36.6 C 69 17 118/63 90 03/07/22 07:25 68 03/07/22 02:57 36.4 C L 69 18 117/75 92 03/06/22 23:00 37.1 C 75 18 111/70 91 03/06/22 22:38 71 Laboratory Results 03/07/22 03/07/22 03/06/22 Range/Units 07:29 06:15 20:27 Sodium 125 L (136-145) mmol/L Potassium 4.8 (3.5-5.1) mmol/L Chloride 87 L (98-107) mmol/L Carbon Dioxide 29 (21-32) mmol/L Anion Gap 9 (3-11) BUN 54 H (6-23) mg/dl Creatinine 1.53 H (0.6-1.2) mg/dl Est Cr Clr Drug Dosing 30.4 ml/min Est GFR ( Amer) 39.3 ml/min Est GFR (Non-Af Amer) 33.9 ml/min BUN/Creatinine Ratio 35.3 H (10-20) Glucose 107 H (70-99(Fasting)) mg/dl POC Glucose 113 H 147 H (70-99) mg/dl Calcium 9.1 (8.5-10.1) mg/dl 03/06/22 03/06/22 Range/Units 16:46 11:45 Sodium (136-145) mmol/L Potassium (3.5-5.1) mmol/L Chloride (98-107) mmol/L Carbon Dioxide (21-32) mmol/L Anion Gap (3-11) BUN (6-23) mg/dl Creatinine (0.6-1.2) mg/dl Est Cr Clr Drug Dosing ml/min Est GFR ( Amer) ml/min Est GFR (Non-Af Amer) ml/min BUN/Creatinine Ratio (10-20) Glucose (70-99(Fasting)) mg/dl POC Glucose 131 H 147 H (70-99) mg/dl Calcium (8.5-10.1) mg/dl Diagnostic Findings Telemetry reviewed - NSR 60-70 bpm, no arrhythmias Medications Administered Current Inpatient Medications Acetaminophen (Acetaminophen 325 Mg Tab) 650 mg PO Q4H PRN PRN Reason: Pain or Fever Stop: 03/30/22 20:34 Albuterol (Albut/Ipratrop 3mg/0.5mg Neb 3 Ml Vial) 3 ml INH Q6R PRN; Protocol PRN Reason: Shortness Of Breath Stop: 03/30/22 20:34 Allopurinol (Allopurinol 300 Mg Tab) 300 mg PO QAM [facility] Stop: 03/31/22 08:59 Last Admin: 03/07/22 07:33 Dose: 300 mg Documented by: Aspirin (Aspirin 81 Mg Ectab) 81 mg PO QAM [facility] Stop: 03/31/22 08:59 Last Admin: 03/07/22 07:32 Dose: 81 mg Documented by: Atorvastatin Calcium (Atorvastatin 40 Mg Tab) 80 mg PO [facility] Stop: 03/30/22 20:59 Last Admin: 03/06/22 20:31 Dose: 80 mg Documented by: Citalopram Hydrobromide (Citalopram 40 Mg Tab) 40 mg PO [facility] Stop: 03/30/22 20:59 Last Admin: 03/06/22 20:31 Dose: 40 mg Documented by: Dextrose (Dextrose 50% 50 Ml Syringe) 25 - 50 ml IV UD PRN; Protocol PRN Reason: Hypoglycemia Protocol Stop: 03/30/22 20:34 Doxycycline Hyclate (Doxycycline Hyclate 100 Mg Cap) 100 mg PO BID [facility] Stop: 03/07/22 20:59 Last Admin: 03/07/22 07:32 Dose: 100 mg Documented by: Ferrous Gluconate (Ferrous Gluconate 324 Mg Tab) 324 mg PO BID [facility] Stop: 03/30/22 20:59 Last Admin: 03/07/22 07:32 Dose: 324 mg Documented by: Folic Acid (Folic Acid 1 Mg Tab) 1 mg PO QAM [facility] Stop: 03/31/22 08:59 Last Admin: 03/07/22 07:32 Dose: 1 mg Documented by: Furosemide (Furosemide 40 Mg/4 Ml Vial) 40 mg IV TID [facility] Stop: 04/03/22 13:59 Last Admin: 03/07/22 07:31 Dose: 40 mg Documented by: Gabapentin (Gabapentin 800 Mg Tab) 800 mg PO TID [facility] Stop: 03/30/22 20:59 Last Admin: 03/07/22 07:32 Dose: 800 mg Documented by: Glucagon (Glucagon For Inj 1 Mg Vial) 1 mg SQ UD PRN; Protocol PRN Reason: Hypoglycemia Protocol Stop: 03/30/22 20:34 Glucose (Glucose 10 Tabs/Tube) 4 - 8 tabs PO UD PRN; Protocol PRN Reason: Hypoglycemia Protocol Stop: 03/30/22 20:34 Glucose (Glucose 40% Gel 15 Gm Tube) 15 - 30 gm PO UD PRN; Protocol PRN Reason: Hypoglycemia Protocol Stop: 03/30/22 20:34 Heparin Sodium (Porcine) (Heparin Sod 5,000 Unit/0.5 Ml Vial) 5,000 units SQ Q8 [facility] Stop: 03/30/22 21:59 Last Admin: 03/07/22 07:31 Dose: 5,000 units Documented by: Insulin Aspart (Insulin Aspart Per Unit) 0 units SC ACHS [facility] Stop: 03/30/22 20:59 Last Admin: 03/07/22 08:02 Dose: 2 units Documented by: Metoprolol Succinate (Metoprolol Succ 25mg Ext Rel Tab) 12.5 mg PO DAILY@1530 [facility] Stop: 03/31/22 15:29 Last Admin: 03/06/22 15:19 Dose: 12.5 mg Documented by: Miscellaneous (Carbohydrates For Hypoglycemia ) 15 - 30 gm PO UD PRN PRN Reason: Hypoglycemia Protocol Stop: 03/30/22 20:34 Oxycodone HCl (Oxycodone Hcl Ir 5 Mg Tab (Immediate Release)) 5 mg PO TID PRN PRN Reason: Pain Stop: 03/14/22 21:56 Last Admin: 03/06/22 21:03 Dose: 5 mg Documented by: Pantoprazole Sodium ([facility] 40 Mg Tab) [facility] Protocol Stop: 03/31/22 06:29 Last Admin: 03/07/22 07:31 Dose: 40 mg Documented by: Rifaximin (Rifaximin 550 Mg Tablet) 550 mg PO PENDING SALE [facility] Stop: 03/30/22 20:59 Last Admin: 03/07/22 07:32 Dose: 550 mg Documented by: Spironolactone ([facility] 100 Mg Tab) [facility] Stop: 03/31/22 08:59 Last Admin: 03/06/22 08:09 Dose: 100 mg Documented by:
--- NOTE | 2022-03-07 10:34 | Nephrology Progress Note ---
Date of Service March 07, 2022 Assessment & Plan Admission and Anticipated Discharge Date Admission Date: February 28, 2022 Subjective Assessment & Plan (1) CKD (chronic kidney disease), stage III: Plan: She is know to be non protenuric CKD 3b with baseline Scr 1.4 --1.6 Her renal functions are at baseline but na going down. But given na now down to 125 will hold Aldactone ( Can lower na more than lasix) Charted urine is not much at all and declining. confirmed with Nurse that she has external catheter so Is accurate. Not eating much which makes it harder to raise Na. Stop iv lasix Use lasix 40 po bid. Give 15 gm urea-bid for 1 day (2) Combined systolic and diastolic congestive heart failure: Plan: As above. Daily weights, strict I's and O's, low Na+ diet, 1.5 L fluid restriction Echo 09/2020-EF 40 to 45%, grade 2 diastolic dysfunction, moderate aortic stenosis, mild aortic regurgitation, mild mitral stenosis, severe mitral regurgitation Repeat TTE show EF of 30-35%, LV is moderately dilated, severe MR, mod MS, LA mod dilated (3) Cellulitis: Plan: Right anterior swan wound in the setting of severe PVD No signs of sepsis Venous Doppler shows greater saphenous vein graft that appears patent On antibiotics for cellulitis Wound care Subjective Some SOB. Lower leg edema has improved per her description. No chest pains or discomfort. Review of Systems Review of Systems: All systems reviewed & are unremarkable except as noted in Subjective Physical Exam Physical Exam: General Appearance:Moderately built and nourished, chronic ill appearing, no apparent distress Head: normocephalic, Atraumatic Eyes: normal inspection, EOMI Neck: supple, Trachea midline Respiratory/Chest: Decreased breath sounds, +Basal Crackles Cardiovascular: S1, S2, + murmur Abdomen/GI:Soft, distended, mild tender, Bowel sounds present Extremities/Musculoskeletal:normal inspection, Left BKA, + multiple bruises Neurologic/Psych:AAOX3, grossly no focal neurological deficits Skin: normal color, warm Results & Data ([facility]) Vital Signs (Past 12 Hours) Vital Signs Temp Pulse Pulse Resp BP BP Pulse Ox 03/07/22 07:56 36.6 C 69 17 118/63 90 03/07/22 07:25 68 03/07/22 02:57 36.4 C L 69 18 117/75 92 03/06/22 23:00 37.1 C 75 18 111/70 91 03/06/22 22:38 71
[2022-03-07] MEDS: UREA (UREA-NA) 15 GM PACK PO SCH ×2 (11:17→20:47)
--- NOTE | 2022-03-07 11:42 | XRay Report ---
XR chest 1V portable HISTORY: 71 years-old Female eval pulm edema/effusions acute shortness of breath with pulmonary dasia a COMPARISON: Chest radiograph 03/04/2022 TECHNIQUE: Portable AP view of the chest FINDINGS: Surgical clips project over the neck. Cardiomegaly. Pulmonary vascular congestion with progressively worsened interstitial coarsening. Bibasilar predominant airspace opacities. No pneumothorax. Small pl eural effusions. Reverse right shoulder total joint arthroplasty. Degenerative changes of the spine a nd left shoulder. IMPRESSION: 1. Cardiomegaly with progressively worsened pulmonary edema. 2. Small pleural effusions with bibasilar predominant consolidation. ACT 112: Negative or not required by law. The above report was generated using voice recognition software. It may contain grammatical, syntax o r spelling errors. Electronically signed by: Shailesh Salgado M.D. 03/07/2022 11:41 AM
[2022-03-07] MEDS: METOPROLOL SUCC 25MG EXT REL TAB PO SCH (16:49)
--- NOTE | 2022-03-07 18:14 | Hospitalist Progress Note ---
Date of Service March 07, 2022 Assessment & Plan (1) Volume overload: (2) Combined systolic and diastolic congestive heart failure: (3) Valvular heart disease: (4) HINKLE (nonalcoholic steatohepatitis): Plan: Patient is a 71 yr female who presented by referral PCPs office for evaluation of shortness of breath, worsening abdominal distention Volume overload Acute on chronic systolic diastolic heart failure Likely multifactorial due to chronic systolic and diastolic CHF, valvular heart disease, HINKLE --CT ABD/pelvis showing small bilateral pleural effusions, small amount of ascites, evidence of anasarca --BNP 2529 --Troponin 41>42>48 --ECHO: Left ventricle is moderately dilated. EF 30 to 35%. Right ventricle systolic function is normal. Left atrium is moderately dilated. Moderate valvular aortic stenosis. Moderate to severe mitral annular calcification, severe mitral regurgitation and moderate mitral stenosis. Mild to moderate tricuspid regurgitation. Estimated pulmonary artery pressure 55 mmHg. --Monitor I's and O's, daily weight Appreciate cardiology, nephrology input Low-sodium diet, fluid restriction Weaned off of supplemental oxygen Not on JUAN JOSE/ARB detailed home blood pressure in the past. Likely would not tolerate Entresto Chest x-ray today showed persistent pulmonary edema Hold spironolactone for now IV diuretics transition to lasix PO 40 mg twice daily Hyponatremia likely due to hypervolemia, diuretics Fluid restriction Monitor sodium levels Started on Urea HINKLE Continue rifaximin Spironolactone on hold (5) Leg wound, right: Plan: Right anterior swan wound in the setting of severe PVD No signs of sepsis Venous Doppler shows greater saphenous vein graft that appears patent Continue Wound care On Doxycycline (6) PAD (peripheral artery disease): (7) CAD (coronary artery disease): (8) Elevated troponin: Plan: Troponin 41>42>48 No reports of chest pain Continue ASA, statin, beta-alma (9) Diarrhea: Plan: Seems to be a chronic issue C. difficile and stool PCR negative (10) COPD (chronic obstructive pulmonary disease): Plan: No signs of acute exacerbation (11) CKD (chronic kidney disease), stage III: Plan: Baseline creatinine mid 1's Creatinine 1.5 (12) Diabetes mellitus type 2, diet-controlled: Plan: Hgb A1c 6.9 10/2021, A1c today 03/01/22 6.6 (13) Bladder cancer: Plan: History Had screening cystoscopy on 02/27/22 that showed recurrence of cancer Patient scheduled for TURBT in March () DVT prophylaxis: Plan: SQ heparin Admission and Anticipated Discharge Date Admission Date: February 28, 2022 Subjective Patient is seen and examined at bedside States feeling tired Lying comfortably Discussed with cardiology today Denies any chest pain, dizziness, nausea, abdominal pain No significant dyspnea Review of Systems Review of Systems: All systems reviewed & are unremarkable except as noted in Subjective Physical Exam Physical Exam: Physical Exam: Vitals signs as noted above General Appearance:Moderately built and nourished, no apparent distress Head: normocephalic, Atraumatic Eyes: normal inspection, EOMI Neck: supple, Trachea midline Respiratory/Chest: Decreased breath sounds, B/L Scattered wheezing, No accessory muscle use Cardiovascular: S1, S2, + murmur Abdomen/GI:Soft, Non tender, Bowel sounds present Extremities/Musculoskeletal:normal inspection, Left BKA, Leg wound in dressing Neurologic/Psych:AAOX3, grossly no focal neurological deficits Skin: normal color, warm Results & Data Results & Data ([facility]) Vital Signs (Past 12 Hours) Vital Signs Temp Pulse Pulse Resp BP BP Pulse Ox 03/07/22 15:26 36.8 C 64 18 123/75 94 03/07/22 15:03 67 03/07/22 11:26 36.4 C L 67 17 115/71 94 03/07/22 07:56 36.6 C 69 17 118/63 90 03/07/22 07:25 68 Laboratory Results BMP 03/07/22 06:15 Sodium 125 L Potassium 4.8 Chloride 87 L Carbon Dioxide 29 BUN 54 H Creatinine 1.53 H Glucose 107 H Calcium 9.1
[2022-03-07] MEDS: FUROSEMIDE 40 MG TAB PO SCH (19:19)
[2022-03-07] MEDS: ATORVASTATIN 40 MG TAB PO SCH (20:47)
[2022-03-07] MEDS: CITALOPRAM 40 MG TAB PO SCH (20:47)
[2022-03-08] MEDS: HEPARIN SOD 5,000 UNIT/0.5 ML VIAL SQ SCH ×3 (05:14→20:22)
[2022-03-08] MEDS: PANTOprazole 40 MG TAB PO SCH (05:57)
[2022-03-08 06:57] LABS: Hematocrit (blood only) 42.8 % (37-47); Hemoglobin 13.7 g/dL (12.0-16.0); Mean Corpuscular Hemoglobin 28.1 pg (25-34); Mean Corpuscular Volume 87.9 fL (80-100); Mean Platelet Volume 11.6 fL (7.4-10.4); Platelet Count 174 K/uL (130-400); RDW Coefficient of Variation 20.2 % (11.5-14.5); RDW Standard Deviation 63.7 fL (36.4-46.3); Red Blood Count 4.87 M/uL (4.2-5.4)
[2022-03-08 07:23] LABS: BUN Creatinine Ratio 52.5 (10-20); Calcium 9.4 mg/dl (8.5-10.1); Creatinine Clr Calc Pharmacy 29.3 ml/min; Est GFR (African American) 37.8 ml/min; Est GFR (Non-African American) 32.6 ml/min; Potassium 5.4 mmol/L (3.5-5.1)
[2022-03-08] MEDS: INSULIN ASPART PER UNIT SC SCH ×4 (08:17→20:31)
[2022-03-08] MEDS: FOLIC ACID 1 MG TAB PO SCH (08:19)
[2022-03-08] MEDS: ASPIRIN 81 MG ECTAB PO SCH (08:19)
[2022-03-08] MEDS: FERROUS GLUCONATE 324 MG TAB PO SCH ×2 (08:19→20:24)
[2022-03-08] MEDS: allopurinoL 300 MG TAB PO SCH (08:19)
[2022-03-08] MEDS: rifAXIMin 550 MG TABLET PO SCH ×2 (08:20→20:23)
[2022-03-08] MEDS: GABAPENTIN 800 MG TAB PO SCH ×3 (08:20→20:24)
--- NOTE | 2022-03-08 09:52 | Cardiology Progress Note ---
Date of Service March 08, 2022 Assessment & Plan (1) Combined systolic and diastolic congestive heart failure: (2) Ischemic cardiomyopathy: (3) Valvular heart disease: (4) Volume overload: (5) Elevated troponin: (6) PAD (peripheral artery disease): Plan: Peripheral arterial disease with left BKA and bilateral carotid endarterectomies. (7) HINKLE (nonalcoholic steatohepatitis): Plan: HINKLE, Cirrhosiswith recurrent ascites requiring paracentesis in the past. Plan: Patient admitted for volume overload, consistent with acute on chronic decompensated systolic and diastolic heart failure. Volume status improved since admission. Weight down. Edema improved. She was being treated with high dose IV diuretics, but making little urine over the last few days. This was discussed in detail with Dr. Gleason yesterday. Sodium levels continue to fall. She was transitioned to oral diuretics yesterday and it seems urine output has slightly increased over the last 24 hours. She reports no significant dyspnea and cough improved, yet chest xray consistent with pulm edema. Spironolactone discontinued due to hyponatremia and hyperkalemia noted today. Strict fluid restriction encouraged. Increase furosemide to 80 mg in AM and 40 mg in PM, since holding spironolactone. Continue all other home medications including ASA, statin, metoprolol Not on JUAN JOSE/ARB due to low BP in the past. Likely would not tolerate Entresto. Monitor I+O's. May need supplemental O2 on discharge. PT/OT recommended Will follow. Discussed with Dr. Worthy Admission and Anticipated Discharge Date Admission Date: February 28, 2022 Supervising Physician Co-Signing Physician Notes I have previously seen and examined the patient. I reviewed the medical record and discussed the case with Ms. Thomason. I agree with the plan as she has outlined. Subjective Patient resting in bed comfortably. Laying supine without complaints of orthopnea, PND, SOB, or cough. Currently off supplemental O2. She had better urine outputs yesterday since transitioning to oral diuretics. She wishes for discharge soon. Denies chest pain or acute symptoms. edema much improved. Review of Systems Review of Systems: All systems reviewed & are unremarkable except as noted in HPI & below Physical Exam Constitutional: + obese; no acute distress Eyes: PERRL, conjunctivae normal, anicteric sclerae ENMT: external ear and nose normal, oropharynx normal Neck: trachea midline, no thyromegaly Respiratory: Auscultation: + wheezes (scattered expiratory wheeze) Cardiovascular: Rate/Rhythm: regular rate and regular rhythm Heart Sounds: + murmur (Grade 2/6 to 3/6 systolic murmur) Extremities: no edema (No significant edema b/l. Left below knee amputation) Gastrointestinal (Abdomen): Percussion/Palpation: abdomen soft; abdomen nontender Neurologic: PERRL, EOMI, accommodation nl, no face palsy, no dysarthria Results & Data ([facility]) Vital Signs (Past 12 Hours) Vital Signs Temp Pulse Pulse Resp BP BP Pulse Ox 03/08/22 07:50 36.6 C 66 16 105/62 91 03/08/22 07:14 64 03/08/22 04:37 67 03/08/22 03:24 36.6 C 62 16 112/69 90 03/07/22 22:04 36.9 C 70 16 116/67 92 Laboratory Results 03/08/22 03/08/22 03/08/22 Range/Units 07:45 06:08 06:08 WBC 5.90 (4.8-10.8) K/uL RBC 4.87 (4.2-5.4) M/uL Hgb 13.7 (12.0-16.0) g/dL Hct 42.8 (37-47) % MCV 87.9 (80-100) fL MCH 28.1 (25-34) pg MCHC 32.0 (32-36) g/dL RDW Std Deviation 63.7 H (36.4-46.3) fL RDW Coeff of Tiburcio 20.2 H (11.5-14.5) % Plt Count 174 D (130-400) K/uL MPV 11.6 H (7.4-10.4) fL Sodium 124 L (136-145) mmol/L Potassium 5.4 H (3.5-5.1) mmol/L Chloride 84 L (98-107) mmol/L Carbon Dioxide 32 (21-32) mmol/L Anion Gap 8 (3-11) BUN 83 H D (6-23) mg/dl Creatinine 1.58 H (0.6-1.2) mg/dl Est Cr Clr Drug Dosing 29.3 ml/min Est GFR ( Amer) 37.8 ml/min Est GFR (Non-Af Amer) 32.6 ml/min BUN/Creatinine Ratio 52.5 H (10-20) Glucose 120 H (70-99(Fasting)) mg/dl POC Glucose 131 H (70-99) mg/dl Calcium 9.4 (8.5-10.1) mg/dl 03/07/22 03/07/22 03/07/22 Range/Units 20:27 16:38 11:19 WBC (4.8-10.8) K/uL RBC (4.2-5.4) M/uL Hgb (12.0-16.0) g/dL Hct (37-47) % MCV (80-100) fL MCH (25-34) pg MCHC (32-36) g/dL RDW Std Deviation (36.4-46.3) fL RDW Coeff of Tiburcio (11.5-14.5) % Plt Count (130-400) K/uL MPV (7.4-10.4) fL Sodium (136-145) mmol/L Potassium (3.5-5.1) mmol/L Chloride (98-107) mmol/L Carbon Dioxide (21-32) mmol/L Anion Gap (3-11) BUN (6-23) mg/dl Creatinine (0.6-1.2) mg/dl Est Cr Clr Drug Dosing ml/min Est GFR ( Amer) ml/min Est GFR (Non-Af Amer) ml/min BUN/Creatinine Ratio (10-20) Glucose (70-99(Fasting)) mg/dl POC Glucose 167 H 141 H 170 H (70-99) mg/dl Calcium (8.5-10.1) mg/dl Diagnostic Findings Telemetry reviewed: NSR 60-70s. No arrhyhtmias Chest xray yeseterday- worsening pulm edema? Medications Administered Current Inpatient Medications Acetaminophen (Acetaminophen 325 Mg Tab) 650 mg PO Q4H PRN PRN Reason: Pain or Fever Stop: 03/30/22 20:34 Albuterol (Albut/Ipratrop 3mg/0.5mg Neb 3 Ml Vial) 3 ml INH Q6R PRN; Protocol PRN Reason: Shortness Of Breath Stop: 03/30/22 20:34 Allopurinol (Allopurinol 300 Mg Tab) 300 mg PO QAM [facility] Stop: 03/31/22 08:59 Last Admin: 03/08/22 08:19 Dose: 300 mg Documented by: Aspirin (Aspirin 81 Mg Ectab) 81 mg PO QAM [facility] Stop: 03/31/22 08:59 Last Admin: 03/08/22 08:19 Dose: 81 mg Documented by: Atorvastatin Calcium (Atorvastatin 40 Mg Tab) 80 mg PO HS [facility] Stop: 03/30/22 20:59 Last Admin: 03/07/22 20:47 Dose: 80 mg Documented by: Citalopram Hydrobromide (Citalopram 40 Mg Tab) 40 mg PO HS [facility] Stop: 03/30/22 20:59 Last Admin: 03/07/22 20:47 Dose: 40 mg Documented by: Dextrose (Dextrose 50% 50 Ml Syringe) 25 - 50 ml IV UD PRN; Protocol PRN Reason: Hypoglycemia Protocol Stop: 03/30/22 20:34 Ferrous Gluconate (Ferrous Gluconate 324 Mg Tab) 324 mg PO BID [facility] Stop: 03/30/22 20:59 Last Admin: 03/08/22 08:19 Dose: 324 mg Documented by: Folic Acid (Folic Acid 1 Mg Tab) 1 mg PO QAM [facility] Stop: 03/31/22 08:59 Last Admin: 03/08/22 08:19 Dose: 1 mg Documented by: Furosemide (Furosemide 40 Mg Tab) 40 mg PO BID17 [facility] Stop: 04/06/22 18:29 Last Admin: 03/07/22 19:19 Dose: 40 mg Documented by: Gabapentin (Gabapentin 800 Mg Tab) 800 mg PO TID [facility] Stop: 03/30/22 20:59 Last Admin: 03/08/22 08:20 Dose: 800 mg Documented by: Glucagon (Glucagon For Inj 1 Mg Vial) 1 mg SQ UD PRN; Protocol PRN Reason: Hypoglycemia Protocol Stop: 03/30/22 20:34 Glucose (Glucose 10 Tabs/Tube) 4 - 8 tabs PO UD PRN; Protocol PRN Reason: Hypoglycemia Protocol Stop: 03/30/22 20:34 Glucose (Glucose 40% Gel 15 Gm Tube) 15 - 30 gm PO UD PRN; Protocol PRN Reason: Hypoglycemia Protocol Stop: 03/30/22 20:34 Heparin Sodium (Porcine) (Heparin Sod 5,000 Unit/0.5 Ml Vial) 5,000 units SQ Q8 [facility] Stop: 03/30/22 21:59 Last Admin: 03/08/22 05:14 Dose: Not Given Documented by: Insulin Aspart (Insulin Aspart Per Unit) 0 units SC ACHS [facility] Stop: 03/30/22 20:59 Last Admin: 03/08/22 08:17 Dose: Not Given Documented by: Metoprolol Succinate (Metoprolol Succ 25mg Ext Rel Tab) 12.5 mg PO DAILY@1530 [facility] Stop: 03/31/22 15:29 Last Admin: 03/07/22 16:49 Dose: 12.5 mg Documented by: Miscellaneous (Carbohydrates For Hypoglycemia ) 15 - 30 gm PO UD PRN PRN Reason: Hypoglycemia Protocol Stop: 03/30/22 20:34 Oxycodone HCl (Oxycodone Hcl Ir 5 Mg Tab (Immediate Release)) 5 mg PO TID PRN PRN Reason: Pain Stop: 03/14/22 21:56 Last Admin: 03/06/22 21:03 Dose: 5 mg Documented by: Pantoprazole Sodium ([facility]oprazole 40 Mg Tab) [facility] Protocol Stop: 03/31/22 06:29 Last Admin: 03/08/22 05:57 Dose: 40 mg Documented by: Rifaximin (Rifaximin 550 Mg Tablet) 550 mg PO [facility] Stop: 03/30/22 20:59 Last Admin: 03/08/22 08:20 Dose: 550 mg Documented by: Spironolactone (Spironolactone 100 Mg Tab) 100 mg PO QAM [facility] Stop: 03/31/22 08:59 Last Admin: 03/06/22 08:09 Dose: 100 mg Documented by: Urea (Urea (Urea-Na) 15 Gm Pack) 15 gm PO BID [facility] Stop: 04/06/22 10:44 Last Admin: 03/07/22 20:47 Dose: 15 gm Documented by:
[2022-03-08] MEDS ORDERED: FUROSEMIDE 40 MG TAB PO SCH (10:00)
--- NOTE | 2022-03-08 10:00 | Nephrology Progress Note ---
Date of Service March 08, 2022 Assessment & Plan Admission and Anticipated Discharge Date Admission Date: February 28, 2022 Subjective Assessment & Plan (1) CKD (chronic kidney disease), stage III: Plan: She is know to be non proteinuric CKD 3b with baseline Scr 1.4 --1.6 Her creat still at baseline but na going down. hold Aldactone ( Can lower na more than lasix and now has high K also) Charted urine is not much at all and declining. confirmed with Nurse that she has external catheter so Is mostly accurate. Not eating much which makes it harder to raise Na. No lasix for now will reassess her again tomorrow after labs and exam to decide about lasix. Seems euvolemic now Continue 15 gm urea-bid (2) Combined systolic and diastolic congestive heart failure: Plan: As above. Seems euvolemic now Daily weights, strict I's and O's, low Na+ diet, 1.5 L fluid restriction Echo 09/2020-EF 40 to 45%, grade 2 diastolic dysfunction, moderate aortic stenosis, mild aortic regurgitation, mild mitral stenosis, severe mitral regurgitation Repeat TTE show EF of 30-35%, LV is moderately dilated, severe MR, mod MS, LA mod dilated (3) Cellulitis: Plan: Right anterior swan wound in the setting of severe PVD No signs of sepsis Venous Doppler shows greater saphenous vein graft that appears patent On antibiotics for cellulitis Wound care Subjective No SOB Lower leg edema has improved per her description. No chest pains or discomfort. Review of Systems Review of Systems: All systems reviewed & are unremarkable except as noted in Subjective Physical Exam Physical Exam: General Appearance:Moderately built and nourished, chronic ill appearing, no apparent distress Head: normocephalic, Atraumatic Eyes: normal inspection, EOMI Neck: supple, Trachea midline Respiratory/Chest: Decreased breath sounds, +Basal Crackles Cardiovascular: S1, S2, + murmur Abdomen/GI:Soft, distended, mild tender, Bowel sounds present Extremities/Musculoskeletal:normal inspection, Left BKA, + multiple bruises Neurologic/Psych:AAOX3, grossly no focal neurological deficits Skin: normal color, warm Results & Data ([facility]) Vital Signs (Past 12 Hours) Vital Signs Temp Pulse Pulse Resp BP BP Pulse Ox 03/08/22 07:50 36.6 C 66 16 105/62 91 03/08/22 07:14 64 03/08/22 04:37 67 03/08/22 03:24 36.6 C 62 16 112/69 90 03/07/22 22:04 36.9 C 70 16 116/67 92
[2022-03-08] MEDS ORDERED: FUROSEMIDE 40 MG TAB PO ONE (10:15)
[2022-03-08] MEDS: UREA (UREA-NA) 15 GM PACK PO SCH ×2 (11:59→21:34)
[2022-03-08] MEDS: FUROSEMIDE 40 MG TAB PO SCH (12:06)
[2022-03-08] MEDS: METOPROLOL SUCC 25MG EXT REL TAB PO SCH (15:29)
--- NOTE | 2022-03-08 16:31 | Hospitalist Progress Note ---
Date of Service March 08, 2022 Assessment & Plan (1) Volume overload: (2) Combined systolic and diastolic congestive heart failure: (3) Valvular heart disease: (4) HINKLE (nonalcoholic steatohepatitis): Plan: Patient is a 71 yr female who presented by referral PCPs office for evaluation of shortness of breath, worsening abdominal distention Volume overload Acute on chronic systolic diastolic heart failure Likely multifactorial due to chronic systolic and diastolic CHF, valvular heart disease, HINKLE --CT ABD/pelvis showing small bilateral pleural effusions, small amount of ascites, evidence of anasarca --BNP 2529 --Troponin 41>42>48 --ECHO: Left ventricle is moderately dilated. EF 30 to 35%. Right ventricle systolic function is normal. Left atrium is moderately dilated. Moderate valvular aortic stenosis. Moderate to severe mitral annular calcification, severe mitral regurgitation and moderate mitral stenosis. Mild to moderate tricuspid regurgitation. Estimated pulmonary artery pressure 55 mmHg. --Monitor I's and O's, daily weight Appreciate cardiology, nephrology input Low-sodium diet, fluid restriction Weaned off of supplemental oxygen Not on JUAN JOSE/ARB detailed home blood pressure in the past. Likely would not tolerate Entresto Chest x-ray today showed persistent pulmonary edema Hold spironolactone for now IV diuretics transition to lasix PO 40 mg twice daily---Currently held due to low sodium levels Re assess volume status tomorrow Hyponatremia likely due to hypervolemia, diuretics Fluid restriction Monitor sodium levels Sodium 124 today Continue Urea HINKLE Continue rifaximin Spironolactone on hold (5) Leg wound, right: Plan: Right anterior swan wound in the setting of severe PVD No signs of sepsis Venous Doppler shows greater saphenous vein graft that appears patent Continue Wound care On Doxycycline (6) PAD (peripheral artery disease): (7) CAD (coronary artery disease): (8) Elevated troponin: Plan: Troponin 41>42>48 No reports of chest pain Continue ASA, statin, beta-alma (9) Diarrhea: Plan: Seems to be a chronic issue C. difficile and stool PCR negative (10) COPD (chronic obstructive pulmonary disease): Plan: No signs of acute exacerbation (11) CKD (chronic kidney disease), stage III: Plan: Baseline creatinine mid 1's Creatinine 1.5 (12) Diabetes mellitus type 2, diet-controlled: Plan: Hgb A1c 6.9 10/2021, A1c today 03/01/22 6.6 (13) Bladder cancer: Plan: History Had screening cystoscopy on 02/27/22 that showed recurrence of cancer Patient scheduled for TURBT in March (14) DVT prophylaxis: Plan: SQ heparin Admission and Anticipated Discharge Date Admission Date: February 28, 2022 Subjective Patient is seen and examined at bedside States feeling sleepy and tired Discussed with Nephrology today Denies any chest pain, dizziness, nausea, abdominal pain No significant dyspnea Sodium levels remain low Review of Systems Review of Systems: All systems reviewed & are unremarkable except as noted in Subjective Physical Exam Physical Exam: Physical Exam: Vitals signs as noted above General Appearance:Moderately built and nourished, no apparent distress Head: normocephalic, Atraumatic Eyes: normal inspection, EOMI Neck: supple, Trachea midline Respiratory/Chest: Decreased breath sounds, B/L Scattered wheezing, No accessory muscle use Cardiovascular: S1, S2, + murmur Abdomen/GI:Soft, Non tender, Bowel sounds present Extremities/Musculoskeletal:normal inspection, Left BKA, Leg wound in dressing Neurologic/Psych:AAOX3, grossly no focal neurological deficits Skin: normal color, warm Results & Data Results & Data ([facility]) Vital Signs (Past 12 Hours) Vital Signs Temp Pulse Pulse Resp BP BP Pulse Ox 03/08/22 15:06 36.3 C L 64 16 111/64 90 03/08/22 11:57 37 C 66 18 113/61 92 03/08/22 07:50 36.6 C 66 16 105/62 91 03/08/22 07:14 64 03/08/22 04:37 67 Laboratory Results Short CBC 03/08/22 Range/Units 06:08 WBC 5.90 (4.8-10.8) K/uL Hgb 13.7 (12.0-16.0) g/dL Hct 42.8 (37-47) % Plt Count 174 D (130-400) K/uL BMP 03/08/22 06:08 Sodium 124 L Potassium 5.4 H Chloride 84 L Carbon Dioxide 32 BUN 83 H D Creatinine 1.58 H Glucose 120 H Calcium 9.4
[2022-03-08] MEDS: ATORVASTATIN 40 MG TAB PO SCH (20:23)
[2022-03-08] MEDS: CITALOPRAM 40 MG TAB PO SCH (20:24)
[2022-03-09] MEDS: PANTOprazole 40 MG TAB PO SCH (05:40)
[2022-03-09] MEDS: HEPARIN SOD 5,000 UNIT/0.5 ML VIAL SQ SCH ×3 (05:40→21:11)
[2022-03-09 06:45] LABS: BUN Creatinine Ratio 72.1 (10-20); Calcium 9.4 mg/dl (8.5-10.1); Creatinine Clr Calc Pharmacy 33.9 ml/min; Est GFR (African American) 45.3 ml/min; Est GFR (Non-African American) 39.1 ml/min; Potassium 4.8 mmol/L (3.5-5.1)
[2022-03-09] MEDS ORDERED: FUROSEMIDE 80 MG TAB PO SCH (09:00)
[2022-03-09] MEDS: INSULIN ASPART PER UNIT SC SCH ×4 (09:58→21:21)
[2022-03-09] MEDS: ASPIRIN 81 MG ECTAB PO SCH (10:00)
[2022-03-09] MEDS: rifAXIMin 550 MG TABLET PO SCH ×2 (10:00→21:11)
[2022-03-09] MEDS: allopurinoL 300 MG TAB PO SCH (10:00)
[2022-03-09] MEDS: GABAPENTIN 800 MG TAB PO SCH ×3 (10:00→21:11)
[2022-03-09] MEDS: FERROUS GLUCONATE 324 MG TAB PO SCH ×2 (10:00→21:11)
[2022-03-09] MEDS: UREA (UREA-NA) 15 GM PACK PO SCH ×2 (10:00→21:10)
[2022-03-09] MEDS: FOLIC ACID 1 MG TAB PO SCH (10:00)
--- NOTE | 2022-03-09 13:15 | Cardiology Progress Note ---
Date of Service March 09, 2022 Assessment & Plan (1) Ischemic cardiomyopathy: (2) Valvular heart disease: (3) Hyponatremia: Plan: Pt presented via ED on 02/28/22 with progressive SOB and abdominal distension, both of which seem to be improved. Although vital sings include HR of 127 at 12:02 on telemetry SR at 60 bpm with first degree AVB noted. Although CXR report from 03/07/22 suggests worsening pulmonary edema, difficult to compare to prior films due to difference in technique / penetrance. Severe scholiosis noted. At present, hold diuretics. Pt likely poor candidate for mitral valve intervention due to severe calcification and non cardiac comorbidities. Hold diuretics. SQ heparin for DVT prophylaxis. Admission and Anticipated Discharge Date Admission Date: February 28, 2022 Subjective Pt seen in follow up. Resting comfortably completely supine. Denies shortness of breath. Physical Exam Constitutional: WD/WN, vitals as above Respiratory: normal respiratory effort, lungs clear to auscultation Cardiovascular: RRR, no murmur, no edema Gastrointestinal (Abdomen): normal bowel sounds, soft, nontender, no hepatosplenomegaly Musculoskeletal: left below the knee amputation noted. Neurologic: PERRL, EOMI, accommodation nl, no face palsy, no dysarthria Results & Data ([facility]) Vital Signs (Past 12 Hours) Vital Signs Temp Pulse Resp BP Pulse Ox 03/09/22 12:02 36.5 C 127 H 18 106/58 L 91 03/09/22 07:54 36.8 C 68 20 114/62 93 03/09/22 04:40 36.7 C 68 18 112/67 90 Diagnostic Findings TTecho 03/01/22: Moderate LV chamber dilatation LVEF 30-35% Moderate Severe MR Moderate MS PASP 55 mm Hg
--- NOTE | 2022-03-09 14:00 | Nephrology Progress Note ---
Date of Service March 09, 2022 Assessment & Plan (1) Hyponatremia: Plan: -on urea since 03/07, continue fluid limit; has had no lasix since 03/07 PM > prior to that had bid 40 mg IV 03/01-03/04 and tid 03/04-03/07 in addition to several other doses; spironolactone was given 03/01-03/06. admitted 03/01 with sNa 130 and with slow drift down to 124 today. -continue urea -cont 1.5 L FR -cont <2 gm Na diet -recheck bmp and serum osms this afternoon > may need to resume lasix; would continue to hold spironolactone. will order urine studies as well but recognize may be challenging to get clean specimen (2) CKD (chronic kidney disease), stage III: Plan: She is know to be non protenuric CKD 3b with baseline Scr 1.4 --1.6 Her renal functions are at baseline. Diuretics on hold. This is managed by Cardiology and leave this to them >today with slowly worsening hyponatremia and diuretics on hold > may need to reconsider this as below (3) Combined systolic and diastolic congestive heart failure: Plan: As above. Daily weights, strict I's and O's, low Na+ diet, 2 L fluid restriction -Echo 09/2020-EF 40 to 45%, grade 2 diastolic dysfunction, moderate aortic stenosis, mild aortic regurgitation, mild mitral stenosis, severe mitral reg urgitation Repeat TTE show EF of 30-35%, LV is moderately dilated, severe MR, mod MS, LA mod dilated - Cardiology on board, not a candidate for MVR (4) Bladder cancer: Plan: screening cysto 02/27 w/ bladder CA recurrence; for TURBT in March Admission and Anticipated Discharge Date Admission Date: February 28, 2022 Subjective c/o diarrhea and combined fecal/urinary incontinence. no dysuria/gross hematuria. no appetite whatsoever. denies sob or coughing, wheezing. seen on rounds this am at 1045 Review of Systems Review of Systems: All systems reviewed & are unremarkable except as noted in Subjective Physical Exam Constitutional: well developed, well nourished, + obese and cooperative; no acute distress Eyes: EOM intact bilaterally ENMT: Ears: no external ear abnormality Nose: no external nose abnormality Mouth: + dry oral mucous membranes Neck: no nuchal rigidity Respiratory: normal respiratory effort Auscultation: + crackles (inspiratory), + rhonchi and + wheezes Cardiovascular: Rate/Rhythm: regular rate and regular rhythm Extremities: no edema Gastrointestinal (Abdomen): Inspection/Auscultation: normal bowel sounds Percussion/Palpation: abdomen soft; abdomen nontender Musculoskeletal: Extremities: strength 5/5 throughout s/p L BKA; Schwann Catracho deformities BL MCP Skin: no rashes, warm and dry + ecchymosis (extensive L arm) Neurologic: mcnally, fluent speech, no tremor Psychiatric: Orientation: oriented x 3 Results & Data ([facility]) Vital Signs (Past 12 Hours) Vital Signs Temp Pulse Resp BP Pulse Ox 03/09/22 12:02 36.5 C 127 H 18 106/58 L 91 03/09/22 07:54 36.8 C 68 20 114/62 93 03/09/22 04:40 36.7 C 68 18 112/67 90 Laboratory Results 03/08/22 06:08 03/09/22 05:37
--- NOTE | 2022-03-09 14:41 | Hospitalist Progress Note ---
Date of Service March 09, 2022 Assessment & Plan (1) Volume overload: (2) Combined systolic and diastolic congestive heart failure: (3) Valvular heart disease: (4) HINKLE (nonalcoholic steatohepatitis): Plan: Patient is a 71 yr female who presented by referral PCPs office for evaluation of shortness of breath, worsening abdominal distention Volume overload Acute on chronic systolic diastolic heart failure Likely multifactorial due to chronic systolic and diastolic CHF, valvular heart disease, HINKLE --CT ABD/pelvis showing small bilateral pleural effusions, small amount of ascites, evidence of anasarca --BNP 2529 --Troponin 41>42>48 --ECHO: Left ventricle is moderately dilated. EF 30 to 35%. Right ventricle systolic function is normal. Left atrium is moderately dilated. Moderate valvular aortic stenosis. Moderate to severe mitral annular calcification, severe mitral regurgitation and moderate mitral stenosis. Mild to moderate tricuspid regurgitation. Estimated pulmonary artery pressure 55 mmHg. --Monitor I's and O's, daily weight Appreciate cardiology, nephrology input Low-sodium diet, fluid restriction Weaned off of supplemental oxygen Not on JUAN JOSE/ARB detailed home blood pressure in the past. Likely would not tolerate Entresto Chest x-ray today showed persistent pulmonary edema Hold spironolactone for now IV diuretics transition to lasix PO 40 mg twice daily---Currently held due to low sodium levels May need to resume diuretics Hyponatremia likely due to hypervolemia, diuretics Fluid restriction Monitor sodium levels Sodium 124 today Continue Urea Difficult to correct sodium levels HINKLE Continue rifaximin Spironolactone on hold (5) Leg wound, right: Plan: Right anterior swan wound in the setting of severe PVD No signs of sepsis Venous Doppler shows greater saphenous vein graft that appears patent Continue Wound care Completed Doxycycline Course (6) PAD (peripheral artery disease): (7) CAD (coronary artery disease): (8) Elevated troponin: Plan: Troponin 41>42>48 No reports of chest pain Continue ASA, statin, beta-alma (9) Diarrhea: Plan: Seems to be a chronic issue C. difficile and stool PCR negative (10) COPD (chronic obstructive pulmonary disease): Plan: No signs of acute exacerbation (11) CKD (chronic kidney disease), stage III: Plan: Baseline creatinine mid 1's Creatinine 1.3 (12) Diabetes mellitus type 2, diet-controlled: Plan: Hgb A1c 6.9 10/2021, A1c today 4/15/22 6.6 (13) Bladder cancer: Plan: History Had screening cystoscopy on 02/27/22 that showed recurrence of cancer Patient scheduled for TURBT in March (14) DVT prophylaxis: Plan: SQ heparin Admission and Anticipated Discharge Date Admission Date: February 28, 2022 Subjective Patient is seen and examined at bedside More alert, awake today States having minimal cough No significant dyspnea Discussed with Cardiology/Nephrology today Review of Systems Review of Systems: All systems reviewed & are unremarkable except as noted in Subjective Physical Exam Physical Exam: Physical Exam: Vitals signs as noted above General Appearance:Moderately built and nourished, no apparent distress Head: normocephalic, Atraumatic Eyes: normal inspection, EOMI Neck: supple, Trachea midline Respiratory/Chest: Decreased breath sounds, B/L Scattered wheezing, No accessory muscle use Cardiovascular: S1, S2, + murmur Abdomen/GI:Soft, Non tender, Bowel sounds present Extremities/Musculoskeletal:normal inspection, Left BKA, Leg wound in dressing Neurologic/Psych:AAOX3, grossly no focal neurological deficits Skin: normal color, warm Results & Data Results & Data ([facility]) Vital Signs (Past 12 Hours) Vital Signs Temp Pulse Resp BP Pulse Ox 03/09/22 12:02 36.5 C 127 H 18 106/58 L 91 03/09/22 07:54 36.8 C 68 20 114/62 93 03/09/22 04:40 36.7 C 68 18 112/67 90 Laboratory Results [facility] 03/09/22 05:37 Sodium 124 L Potassium 4.8 Chloride 85 L Carbon Dioxide 30 BUN 98 H Creatinine 1.36 H Glucose 114 H Calcium 9.4
[2022-03-09] MEDS: METOPROLOL SUCC 25MG EXT REL TAB PO SCH (15:09)
[2022-03-09 16:38] LABS: BUN Creatinine Ratio 73.6 (10-20); Calcium 9.7 mg/dl (8.5-10.1); Est GFR (African American) 42.2 ml/min; Est GFR (Non-African American) 36.4 ml/min; Potassium 4.9 mmol/L (3.5-5.1)
[2022-03-09] MEDS: ATORVASTATIN 40 MG TAB PO SCH (21:11)
[2022-03-09] MEDS: CITALOPRAM 40 MG TAB PO SCH (21:11)
[2022-03-10] MEDS: oxyCODONE HCL IR 5 MG TAB (IMMEDIATE RELEASE) PO PRN (00:53)
[2022-03-10] MEDS: HEPARIN SOD 5,000 UNIT/0.5 ML VIAL SQ SCH ×3 (05:40→21:02)
[2022-03-10 06:29] LABS: Mean Corpuscular Hgb Conc 31.6 g/dL (32-36)
[2022-03-10 06:46] LABS: BUN Creatinine Ratio 81.8 (10-20); Calcium 9.2 mg/dl (8.5-10.1); Est GFR (African American) 52.1 ml/min; Potassium 4.7 mmol/L (3.5-5.1)
[2022-03-10 06:48] LABS: Hematocrit (blood only) 42.7 % (37-47); Hemoglobin 13.5 g/dL (12.0-16.0); Mean Corpuscular Volume 88.4 fL (80-100); RDW Coefficient of Variation 20.3 % (11.5-14.5); RDW Standard Deviation 64.2 fL (36.4-46.3); Red Blood Count 4.83 M/uL (4.2-5.4); White Blood Count 4.67 K/uL (4.8-10.8)
[2022-03-10 07:08] LABS: Mean Platelet Volume 10.8 fL (7.4-10.4); Platelet Count 136 K/uL (130-400); Platelet Estimate Decreased (Normal)
[2022-03-10] MEDS: PANTOprazole 40 MG TAB PO SCH (09:59)
[2022-03-10] MEDS: ASPIRIN 81 MG ECTAB PO SCH (09:59)
[2022-03-10] MEDS: allopurinoL 300 MG TAB PO SCH (09:59)
[2022-03-10] MEDS: rifAXIMin 550 MG TABLET PO SCH ×2 (09:59→20:50)
[2022-03-10] MEDS: GABAPENTIN 800 MG TAB PO SCH ×3 (10:00→20:51)
[2022-03-10] MEDS: FERROUS GLUCONATE 324 MG TAB PO SCH ×2 (10:00→20:50)
[2022-03-10] MEDS: FOLIC ACID 1 MG TAB PO SCH (10:03)
[2022-03-10] MEDS: UREA (UREA-NA) 15 GM PACK PO SCH ×2 (10:03→20:49)
[2022-03-10] MEDS: INSULIN ASPART PER UNIT SC SCH ×4 (10:03→20:44)
--- NOTE | 2022-03-10 11:50 | Cardiology Progress Note ---
Date of Service March 10, 2022 Assessment & Plan (1) Ischemic cardiomyopathy: (2) Valvular heart disease: (3) Hyponatremia: Plan: Pt presented via ED on 02/28/22 with progressive SOB and abdominal distension, both of which seem to be improved. Although CXR report from 03/07/22 suggests worsening pulmonary edema, difficult to compare to prior films due to difference in technique / penetrance. Severe scoliosis noted. Sodium improved from 125 to 127 mmol/ l today. At present, hold diuretics. Pt likely poor candidate for mitral valve intervention due to severe calcification and non cardiac comorbidities. SQ heparin for DVT prophylaxis. Admission and Anticipated Discharge Date Admission Date: February 28, 2022 Subjective Pt seen in follow up. SR in the 70s noted on telemetry with first degree AV block. Physical Exam Constitutional: WD/WN, vitals as above Respiratory: normal respiratory effort, lungs clear to auscultation Cardiovascular: RRR, no murmur, no edema Gastrointestinal (Abdomen): normal bowel sounds, soft, nontender, no hepatosplenomegaly Neurologic: PERRL, EOMI, accommodation nl, no face palsy, no dysarthria Results & Data ([facility]) Vital Signs (Past 12 Hours) Vital Signs Temp Pulse Pulse Resp BP Pulse Ox 03/10/22 11:13 36.4 C L 84 18 111/68 94 03/10/22 07:02 36.8 C 72 20 111/69 90 03/10/22 04:08 69 03/10/22 03:20 37.1 C 71 18 108/65 90 03/09/22 23:53 37.0 C 70 18 99/65 L 90
--- NOTE | 2022-03-10 14:13 | Nephrology Progress Note ---
Date of Service March 10, 2022 Assessment & Plan (1) Hyponatremia: Plan: Most consistent at this point w/ euvolemic hyponatremia. on urea since 03/07, continue fluid limit; has had no lasix since 03/07 PM > prior to that had bid 40 mg IV 03/01-03/04 and tid 03/04-03/07 in addition to several other doses; spironolactone was given 03/01-03/06. admitted 03/01 with sNa 130 and with slow drift down to 124 as recently as 03/09. Osms serum on 03/09 PM w/ sNa 125 were 302, w/ urine osm 355 and Phylicia 32 -continue urea -cont 1.5 L FR -cont <2 gm Na diet -encourage protein intake (2) CKD (chronic kidney disease), stage III: Plan: She is know to be non protenuric CKD 3b with baseline Scr 1.4 --1.6 Her renal functions are at baseline or better Diuretics on hold. This is managed by Cardiology and leave this to them/ would cont to hold >today with improving sNa (3) Combined systolic and diastolic congestive heart failure: Plan: As above. Daily weights, strict I's and O's, low Na+ diet, 2 L fluid restriction -Echo 09/2020-EF 40 to 45%, grade 2 diastolic dysfunction, moderate aortic stenosis, mild aortic regurgitation, mild mitral stenosis, severe mitral regurgitation Repeat TTE show EF of 30-35%, LV is moderately dilated, severe MR, mod MS, LA mod dilated - Cardiology on board, not a candidate for MVR >>>>recommend reeval of inhalers which she has currently prn only (4) Bladder cancer: Plan: screening cysto 02/27 w/ bladder CA recurrence; for TURBT in March Admission and Anticipated Discharge Date Admission Date: February 28, 2022 Subjective no interval clinical events. ate full lunch. denies sob, cough, wheeze; no n/v; feels pain adequately controlled. no mention of diarrhea today Review of Systems Review of Systems: All systems reviewed & are unremarkable except as noted in Subjective Physical Exam Constitutional: well developed, well nourished, + obese and cooperative; no a cute distress Eyes: EOM intact bilaterally ENMT: Ears: no external ear abnormality Nose: no external nose abnormality Mouth: + dry oral mucous membranes Neck: no nuchal rigidity Respiratory: normal respiratory effort Auscultation: + crackles (inspiratory), + rhonchi and + wheezes Cardiovascular: Rate/Rhythm: regular rate and regular rhythm Extremities: no edema Gastrointestinal (Abdomen): Inspection/Auscultation: normal bowel sounds Percussion/Palpation: abdomen soft; abdomen nontender Musculoskeletal: Extremities: strength 5/5 throughout s/p L BKA, marked mcp joint deformities Skin: no rashes, warm and dry + ecchymosis (extensive L arm) Neurologic: mcnally, fluent speech, no tremor Psychiatric: Orientation: oriented x 3 Results & Data ([facility]) Vital Signs (Past 12 Hours) Vital Signs Temp Pulse Pulse Resp BP Pulse Ox 03/10/22 11:13 36.4 C L 84 18 111/68 94 03/10/22 07:02 36.8 C 72 20 111/69 90 03/10/22 04:08 69 03/10/22 03:20 37.1 C 71 18 108/65 90 Laboratory Results 03/10/22 05:26 03/10/22 05:26
--- NOTE | 2022-03-10 15:33 | Hospitalist Progress Note ---
Date of Service March 10, 2022 Assessment & Plan (1) Volume overload: (2) Combined systolic and diastolic congestive heart failure: (3) Valvular heart disease: (4) HINKLE (nonalcoholic steatohepatitis): Plan: Patient is a 71 yr female who presented by referral PCPs office for evaluation of shortness of breath, worsening abdominal distention Volume overload Acute on chronic systolic diastolic heart failure Likely multifactorial due to chronic systolic and diastolic CHF, valvular heart disease, HINKLE --CT ABD/pelvis showing small bilateral pleural effusions, small amount of ascites, evidence of anasarca --BNP 2529 --Troponin 41>42>48 --ECHO: Left ventricle is moderately dilated. EF 30 to 35%. Right ventricle systolic function is normal. Left atrium is moderately dilated. Moderate valvular aortic stenosis. Moderate to severe mitral annular calcification, severe mitral regurgitation and moderate mitral stenosis. Mild to moderate tricuspid regurgitation. Estimated pulmonary artery pressure 55 mmHg. --Monitor I's and O's, daily weight Appreciate cardiology, nephrology input Low-sodium diet, fluid restriction Weaned off of supplemental oxygen Not on JUAN JOSE/ARB detailed home blood pressure in the past. Likely would not tolerate Entresto Chest x-ray today showed persistent pulmonary edema Hold spironolactone for now IV diuretics transition to lasix PO 40 mg twice daily---Currently held due to low sodium levels Need to resume diuretics as able Hyponatremia likely due to hypervolemia, diuretics Fluid restriction Monitor sodium levels Sodium 127 today Continue Urea HINKLE Continue rifaximin Spironolactone on hold (5) Leg wound, right: Plan: Right anterior swan wound in the setting of severe PVD No signs of sepsis Venous Doppler shows greater saphenous vein graft that appears patent Continue Wound care Completed Doxycycline Course (6) PAD (peripheral artery disease): (7) CAD (coronary artery disease): (8) Elevated troponin: Plan: Troponin 41>42>48 No reports of chest pain Continue ASA, statin, beta-alma (9) Diarrhea: Plan: Seems to be a chronic issue C. difficile and stool PCR negative (10) COPD (chronic obstructive pulmonary disease): Plan: No signs of acute exacerbation (11) CKD (chronic kidney disease), stage III: Plan: Baseline creatinine mid 1's Creatinine 1.3 (12) Diabetes mellitus type 2, diet-controlled: Plan: Hgb A1c 6.9 10/2021, A1c today 03/01/22 6.6 (13) Bladder cancer: Plan: History Had screening cystoscopy on 02/27/22 that showed recurrence of cancer Patient scheduled for TURBT in March (14) DVT prophylaxis: Plan: SQ heparin Admission and Anticipated Discharge Date Admission Date: February 28, 2022 Subjective Patient is seen and examined at bedside Offers no new complaints Sodium level slowly improving Slept well overnight Denies chest pain, dyspnea, dizziness Review of Systems Review of Systems: All systems reviewed & are unremarkable except as noted in Subjective Physical Exam Physical Exam: Physical Exam: Vitals signs as noted above General Appearance:Moderately built and nourished, no apparent distress Head: normocephalic, Atraumatic Eyes: normal inspection, EOMI Neck: supple, Trachea midline Respiratory/Chest: Decreased breath sounds, CTA, No accessory muscle use Cardiovascular: S1, S2, + murmur Abdomen/GI:Soft, Non tender, Bowel sounds present Extremities/Musculoskeletal:normal inspection, Left BKA, Leg wound in dressing Neurologic/Psych:AAOX3, grossly no focal neurological deficits Skin: normal color, warm Results & Data Results & Data ([facility]) Vital Signs (Past 12 Hours) Vital Signs Temp Pulse Pulse Resp BP Pulse Ox 03/10/22 15:09 72 03/10/22 11:13 36.4 C L 84 18 111/68 94 03/10/22 08:00 69 03/10/22 07:02 36.8 C 72 20 111/69 90 03/10/22 04:08 69
[2022-03-10] MEDS: METOPROLOL SUCC 25MG EXT REL TAB PO SCH (16:29)
[2022-03-10] MEDS: ATORVASTATIN 40 MG TAB PO SCH (20:50)
[2022-03-10] MEDS: CITALOPRAM 40 MG TAB PO SCH (20:50)
[2022-03-11] MEDS: HEPARIN SOD 5,000 UNIT/0.5 ML VIAL SQ SCH ×3 (05:31→21:03)
[2022-03-11] MEDS: PANTOprazole 40 MG TAB PO SCH (05:31)
[2022-03-11 07:11] LABS: BUN Creatinine Ratio 98.1 (10-20); Calcium 9.5 mg/dl (8.5-10.1); Est GFR (African American) 60.5 ml/min; Est GFR (Non-African American) 52.2 ml/min; Potassium 4.7 mmol/L (3.5-5.1)
[2022-03-11] MEDS: GABAPENTIN 800 MG TAB PO SCH ×3 (08:01→21:01)
[2022-03-11] MEDS: allopurinoL 300 MG TAB PO SCH (08:02)
[2022-03-11] MEDS: FERROUS GLUCONATE 324 MG TAB PO SCH ×2 (08:02→21:01)
[2022-03-11] MEDS: rifAXIMin 550 MG TABLET PO SCH ×2 (08:02→21:00)
[2022-03-11] MEDS: ASPIRIN 81 MG ECTAB PO SCH (08:02)
[2022-03-11] MEDS: FOLIC ACID 1 MG TAB PO SCH (08:02)
[2022-03-11] MEDS: UREA (UREA-NA) 15 GM PACK PO SCH ×2 (08:02→21:00)
[2022-03-11] MEDS: INSULIN ASPART PER UNIT SC SCH ×4 (08:03→21:04)
[2022-03-11] MEDS: METOPROLOL SUCC 25MG EXT REL TAB PO SCH (15:09)
--- NOTE | 2022-03-11 16:45 | Hospitalist Progress Note ---
Date of Service March 11, 2022 Assessment & Plan (1) Volume overload: (2) Combined systolic and diastolic congestive heart failure: (3) Valvular heart disease: (4) HINKLE (nonalcoholic steatohepatitis): Plan: Patient is a 71 yr female who presented by referral PCPs office for evaluation of shortness of breath, worsening abdominal distention Volume overload Acute on chronic systolic diastolic heart failure Likely multifactorial due to chronic systolic and diastolic CHF, valvular heart disease, HINKLE --CT ABD/pelvis showing small bilateral pleural effusions, small amount of ascites, evidence of anasarca --BNP 2529 --Troponin 41>42>48 --ECHO: Left ventricle is moderately dilated. EF 30 to 35%. Right ventricle systolic function is normal. Left atrium is moderately dilated. Moderate valvular aortic stenosis. Moderate to severe mitral annular calcification, severe mitral regurgitation and moderate mitral stenosis. Mild to moderate tricuspid regurgitation. Estimated pulmonary artery pressure 55 mmHg. --Monitor I's and O's, daily weight Appreciate cardiology, nephrology input Low-sodium diet, fluid restriction Weaned off of supplemental oxygen Not on JUAN JOSE/ARB detailed home blood pressure in the past. Likely would not tolerate Entresto Chest x-ray today showed persistent pulmonary edema Hold spironolactone for now IV diuretics transition to lasix PO 40 mg twice daily---Currently held due to low sodium levels Need to resume diuretics as able Hyponatremia likely due to hypervolemia, diuretics Fluid restriction Monitor sodium levels Sodium 130 today Continue Urea--May need it upon discharge as well HINKLE Continue rifaximin Spironolactone on hold (5) Leg wound, right: Plan: Right anterior swan wound in the setting of severe PVD No signs of sepsis Venous Doppler shows greater saphenous vein graft that appears patent Continue Wound care Completed Doxycycline Course (6) PAD (peripheral artery disease): (7) CAD (coronary artery disease): (8) Elevated troponin: Plan: Troponin 41>42>48 No reports of chest pain Continue ASA, statin, beta-alma (9) Diarrhea: Plan: Seems to be a chronic issue C. difficile and stool PCR negative (10) COPD (chronic obstructive pulmonary disease): Plan: No signs of acute exacerbation (11) CKD (chronic kidney disease), stage III: Plan: Baseline creatinine mid 1's Creatinine 1.3>1.0 (12) Diabetes mellitus type 2, diet-controlled: Plan: Hgb A1c 6.9 10/2021, A1c today 03/01/22 6.6 (13) Bladder cancer: Plan: History Had screening cystoscopy on 02/27/22 that showed recurrence of cancer Patient scheduled for TURBT in March (14) DVT prophylaxis: Plan: SQ heparin Admission and Anticipated Discharge Date Admission Date: February 28, 2022 Subjective Patient is seen and examined at bedside States feeling well Discussed with nephrology today. Sodium levels improved to 130 Denies chest pain, dyspnea, dizziness Appetite remains poor Review of Systems 2 Review of Systems: All systems reviewed & are unremarkable except as noted in Subjective Physical Exam Physical Exam: Physical Exam: Vitals signs as noted above General Appearance:Moderately built and nourished, no apparent distress Head: normocephalic, Atraumatic Eyes: normal inspection, EOMI Neck: supple, Trachea midline Respiratory/Chest: Decreased breath sounds, CTA, No accessory muscle use Cardiovascular: S1, S2, + murmur Abdomen/GI:Soft, Non tender, Bowel sounds present Extremities/Musculoskeletal:normal inspection, Left BKA, Leg wound in dressing Neurologic/Psych:AAOX3, grossly no focal neurological deficits Skin: normal color, warm Results & Data Results & Data ([facility]) Vital Signs (Past 12 Hours) Vital Signs Temp Pulse Pulse Resp BP Pulse Ox 03/11/22 15:08 36.8 C 76 18 115/74 92 03/11/22 15:00 75 03/11/22 11:22 37.2 C 77 18 110/69 93 03/11/22 06:50 37.0 C 80 20 115/63 90 Laboratory Results [facility] 03/11/22 06:16 Sodium 130 L Potassium 4.7 Chloride 92 L Carbon Dioxide 29 BUN 105 H Creatinine 1.07 Glucose 115 H Calcium 9.5
--- NOTE | 2022-03-11 16:48 | Nephrology Progress Note ---
Date of Service March 11, 2022 Assessment & Plan (1) Hyponatremia: Plan: Most consistent at this point w/ euvolemic hyponatremia. on urea since 03/07, continue fluid limit; has had no lasix since 03/07 PM > prior to that had bid 40 mg IV 03/01-03/04 and tid 03/04-03/07 in addition to several other doses; spironolactone was given 03/01-03/06. admitted 03/01 with sNa 130 and with slow drift down to 124 as recently as 03/09. Osms serum on 03/09 PM w/ sNa 125 were 302, w/ urine osm 355 and Phylicia 32 -continue urea >>pls ask d/c planning team to find out how much a monthly supply of urea at current dose would cost this patient--likely to need longer term, often costly/difficult to find as OP -cont 1.5 L FR -cont <2 gm Na diet -encourage protein intake -will resume low dose diuretics if cardiology ok's > recommend lasix 20 mg bid17, spironolactone 25 mg daily (jasper can worsen hyponatremia) (2) CKD (chronic kidney disease), stage III: Plan: She is know to be non protenuric CKD 3b with baseline Scr 1.4 --1.6 Her renal functions are at baseline or better Diuretics on hold per cardiology >today with improving sNa (3) Combined systolic and diastolic congestive heart failure: Plan: As above. Daily weights, strict I's and O's, low Na+ diet, 2 L fluid restriction -Echo 09/2020-EF 40 to 45%, grade 2 diastolic dysfunction, moderate aortic stenosis, mild aortic regurgitation, mild mitral stenosis, severe mitral regurgitation Repeat TTE show EF of 30-35%, LV is moderately dilated, severe MR, mod MS, LA mod dilated - Cardiology on board, not a candidate for MVR >>>>recommend reeval of inhalers which she has currently prn only (4) Bladder cancer: Plan: screening cysto 02/27 w/ bladder CA recurrence; for TURBT in March Admission and Anticipated Discharge Date Admission Date: February 28, 2022 Subjective -no interval events; denies sob, n/v, cough, dysuria Review of Systems Review of Systems: All systems reviewed & are unremarkable except as noted in Subjective Physical Exam Constitutional: well developed, well nourished, + obese and cooperative; no acute distress Eyes: EOM intact bilaterally ENMT: Ears: no external ear abnormality Nose: no external nose abnormality Mouth: + dry oral mucous membranes Neck: no nuchal rigidity Respiratory: normal respiratory effort Auscultation: + crackles (inspiratory), + rhonchi and + wheezes Cardiovascular: Rate/Rhythm: regular rate and regular rhythm Extremities: no edema Gastrointestinal (Abdomen): Inspection/Auscultation: normal bowel sounds Percussion/Palpation: abdomen soft; abdomen nontender Musculoskeletal: Extremities: strength 5/5 throughout L BKA Skin: no rashes, warm and dry + ecchymosis (extensive L arm) Neurologic: mcnally, fluent speech, no tremor Psychiatric: Orientation: oriented x 3 Results & Data ([facility]) Vital Signs (Past 12 Hours) Vital Signs Temp Pulse Pulse Resp BP Pulse Ox 03/11/22 15:08 36.8 C 76 18 115/74 92 03/11/22 15:00 75 03/11/22 11:22 37.2 C 77 18 110/69 93 03/11/22 06:50 37.0 C 80 20 115/63 90 Laboratory Results 03/10/22 05:26 03/11/22 06:16
--- NOTE | 2022-03-11 17:21 | Cardiology Progress Note ---
Date of Service March 11, 2022 Assessment & Plan (1) Ischemic cardiomyopathy: (2) Valvular heart disease: (3) Hyponatremia: Plan: Pt presented via ED on 02/28/22 with progressive SOB and abdominal distension, both of which seem to be improved. Patient feeling better. Na 130. Nephrology input noted and appreciated. Resume furosemide 20 mg PO BID tomorrow, and spironolactone at lower dose 25 mg daily (had been on 100 mg daily). SQ heparin for DVT prophylaxis. Admission and Anticipated Discharge Date Admission Date: February 28, 2022 Subjective Pt seen in cardiology follow up. Laying supine. No complaints. Physical Exam Constitutional: WD/WN, vitals as above Respiratory: normal respiratory effort, lungs clear to auscultation Cardiovascular: RRR, no murmur, no edema Gastrointestinal (Abdomen): normal bowel sounds, soft, nontender, no hepatosplenomegaly Neurologic: PERRL, EOMI, accommodation nl, no face palsy, no dysarthria Results & Data ([facility]) Vital Signs (Past 12 Hours) Vital Signs Temp Pulse Pulse Resp BP Pulse Ox 03/11/22 15:08 36.8 C 76 18 115/74 92 03/11/22 15:00 75 03/11/22 11:22 37.2 C 77 18 110/69 93 03/11/22 06:50 37.0 C 80 20 115/63 90
[2022-03-11] MEDS: ATORVASTATIN 40 MG TAB PO SCH (21:02)
[2022-03-11] MEDS: CITALOPRAM 40 MG TAB PO SCH (21:02)
[2022-03-12] MEDS: PANTOprazole 40 MG TAB PO SCH (05:45)
[2022-03-12] MEDS: HEPARIN SOD 5,000 UNIT/0.5 ML VIAL SQ SCH ×4 (05:45→20:55)
[2022-03-12] MEDS ORDERED: FUROSEMIDE 20 MG TAB PO SCH (07:00)
[2022-03-12 07:21] LABS: BUN Creatinine Ratio 68.2 (10-20); Calcium 9.7 mg/dl (8.5-10.1); Creatinine Clr Calc Pharmacy 30.4 ml/min; Est GFR (African American) 39.9 ml/min; Est GFR (Non-African American) 34.4 ml/min; Potassium 5.4 mmol/L (3.5-5.1)
[2022-03-12] MEDS: INSULIN ASPART PER UNIT SC SCH ×4 (08:00→21:34)
[2022-03-12] MEDS: allopurinoL 300 MG TAB PO SCH (08:00)
[2022-03-12] MEDS: UREA (UREA-NA) 15 GM PACK PO SCH ×2 (08:00→20:38)
[2022-03-12] MEDS: FERROUS GLUCONATE 324 MG TAB PO SCH ×2 (08:01→20:38)
[2022-03-12] MEDS: GABAPENTIN 800 MG TAB PO SCH ×3 (08:01→20:38)
[2022-03-12] MEDS: FOLIC ACID 1 MG TAB PO SCH (08:01)
[2022-03-12] MEDS: ASPIRIN 81 MG ECTAB PO SCH (08:01)
[2022-03-12] MEDS: rifAXIMin 550 MG TABLET PO SCH ×2 (08:01→20:38)
[2022-03-12] MEDS ORDERED: SPIRONOLACTONE 25 MG TAB PO SCH (09:00)
--- NOTE | 2022-03-12 12:48 | Nephrology Progress Note ---
Date of Service March 12, 2022 Assessment & Plan (1) Hyponatremia: Plan: Most consistent at this point w/ euvolemic hyponatremia. on urea since 03/07, continue fluid limit; has had no lasix since 03/07 PM > prior to that had bid 40 mg IV 03/01-03/04 and tid 03/04-03/07 in addition to several other doses; spironolactone was given 03/01-03/06. admitted 03/01 with sNa 130 and with slow drift down to 124 as recently as 03/09. Osms serum on 03/09 PM w/ sNa 125 were 302, w/ urine osm 355 and Phylicia 32 at admission. >>today her Na dropped some even before resuming diuretics -continue urea >>pls ask d/c planning team to find out how much a monthly supply of urea at current dose would cost this patient--likely to need longer term, often costly/difficult to find as OP - awaiting update -cont 1.5 L FR -cont <2 gm Na diet -encourage protein intake ->>>>>resumed diuretics today but will hold second doses now with mild hyperkalemia, drop in Na, worsened creatinine >>will recheck bmp 1600 before considering 1700 dose lasix (2) CKD (chronic kidney disease), stage III: Plan: She is know to be non protenuric CKD 3b with baseline Scr 1.4 --1.6 > trending back to baseline but will hold diuretics to avoid KADEN Her renal functions are at baseline or better Diuretics on hold per cardiology >today with improving sNa (3) Combined systolic and diastolic congestive heart failure: Plan: As above. >>cardiology ok with diuretics prn fluid mgt/ not necessarily strong/imperative for standing diuretics from cardiac standpoint Daily weights, strict I's and O's, low Na+ diet, 2 L fluid restriction -Echo 09/2020-EF 40 to 45%, grade 2 diastolic dysfunction, moderate aortic stenosis, mild aortic regurgitation, mild mitral stenosis, severe mitral r egurgitation Repeat TTE show EF of 30-35%, LV is moderately dilated, severe MR, mod MS, LA mod dilated - Cardiology on board, not a candidate for MVR >>>>recommend reeval of inhalers which she has currently prn only (4) Bladder cancer: Plan: screening cysto 4/13 w/ bladder CA recurrence; for TURBT in March Admission and Anticipated Discharge Date Admission Date: February 28, 2022 Subjective no interval clinical events. tells me she's very tired this am; resumed diuretics this am. no sob, no cough. Review of Systems Review of Systems: All systems reviewed & are unremarkable except as noted in Subjective Physical Exam Constitutional: well developed, well nourished, + obese and cooperative; no acute distress Eyes: EOM intact bilaterally ENMT: Ears: no external ear abnormality Nose: no external nose abnormality Mouth: + dry oral mucous membranes Neck: no nuchal rigidity Respiratory: normal respiratory effort Auscultation: + crackles (inspiratory) and + wheezes (fewer today); no rhonchi Cardiovascular: Rate/Rhythm: regular rate and regular rhythm Extremities: no edema Gastrointestinal (Abdomen): Inspection/Auscultation: normal bowel sounds Percussion/Palpation: abdomen soft; abdomen nontender Musculoskeletal: Extremities: strength 5/5 throughout L BKA Skin: no rashes, warm and dry + ecchymosis (extensive L arm) Neurologic: mcnally, fluent speech Psychiatric: Orientation: oriented x 3 Results & Data ([facility]) Vital Signs (Past 12 Hours) Vital Signs Temp Pulse Pulse Resp BP BP Pulse Ox 03/12/22 10:48 36.5 C 73 19 100/56 L 86 L 03/12/22 07:25 36.8 C 71 19 114/76 90 03/12/22 05:59 72 03/12/22 04:00 36.7 C 77 18 112/69 96 Laboratory Results 03/10/22 05:26 03/12/22 06:28
--- NOTE | 2022-03-12 15:20 | Cardiology Progress Note ---
Date of Service March 12, 2022 Assessment & Plan (1) Ischemic cardiomyopathy: (2) Valvular heart disease: (3) Hyponatremia: Plan: Pt presented via ED on 02/28/22 with progressive SOB and abdominal distension, both of which seem to be improved. Patient feeling better. Na 130 on , down to 128, potassium up to 5.4 and received first dose of spironolactone 25 this am. Hold furosemide and spironolactone. Most prudent course may be an ongoing trial off of diuretics. Lungs sound good this afternoon. SQ heparin for DVT prophylaxis. Admission and Anticipated Discharge Date Admission Date: February 28, 2022 Subjective Pt seen in follow up. She is more alert today. Smiling. Denies SOB or abdominal bloating. Telemetry reveals SR in th 60s. Physical Exam Constitutional: WD/WN, vitals as above Respiratory: normal respiratory effort, lungs clear to auscultation Cardiovascular: RRR, no murmur, no edema Gastrointestinal (Abdomen): normal bowel sounds, soft, nontender, no hepatosplenomegaly Neurologic: PERRL, EOMI, accommodation nl, no face palsy, no dysarthria Results & Data ([facility]) Vital Signs (Past 12 Hours) Vital Signs Temp Pulse Pulse Resp BP BP Pulse Ox 03/12/22 10:48 36.5 C 73 19 100/56 L 86 L 03/12/22 07:25 36.8 C 71 19 114/76 90 03/12/22 05:59 72 03/12/22 04:00 36.7 C 77 18 112/69 96
[2022-03-12] MEDS: METOPROLOL SUCC 25MG EXT REL TAB PO SCH (15:45)
--- NOTE | 2022-03-12 17:40 | Hospitalist Progress Note ---
Date of Service March 12, 2022 Assessment & Plan (1) Volume overload: (2) Combined systolic and diastolic congestive heart failure: (3) Valvular heart disease: (4) HINKLE (nonalcoholic steatohepatitis): Plan: Patient is a 71 yr female who presented by referral PCPs office for evaluation of shortness of breath, worsening abdominal distention Volume overload Acute on chronic systolic diastolic heart failure Likely multifactorial due to chronic systolic and diastolic CHF, valvular heart disease, HINKLE --CT ABD/pelvis showing small bilateral pleural effusions, small amount of ascites, evidence of anasarca --BNP 2529 --Troponin 41>42>48 --ECHO: Left ventricle is moderately dilated. EF 30 to 35%. Right ventricle systolic function is normal. Left atrium is moderately dilated. Moderate valvular aortic stenosis. Moderate to severe mitral annular calcification, severe mitral regurgitation and moderate mitral stenosis. Mild to moderate tricuspid regurgitation. Estimated pulmonary artery pressure 55 mmHg. --Monitor I's and O's, daily weight Appreciate cardiology, nephrology input Low-sodium diet, fluid restriction Weaned off of supplemental oxygen Not on JUAN JOSE/ARB detailed home blood pressure in the past. Likely would not tolerate Entresto Chest x-ray today showed persistent pulmonary edema Hold spironolactone for now IV diuretics transition to lasix PO 40 mg twice daily---Currently held due to low sodium levels Need to resume diuretics as able Monitor BMP Hyponatremia likely due to hypervolemia, diuretics Fluid restriction Monitor sodium levels Sodium 128 today Continue Urea--May need it upon discharge as well Sodium levels better off diuretics HINKLE Continue rifaximin Spironolactone on hold (5) Leg wound, right: Plan: Right anterior swan wound in the setting of severe PVD No signs of sepsis Venous Doppler shows greater saphenous vein graft that appears patent Continue Wound care Completed Doxycycline Course (6) PAD (peripheral artery disease): (7) CAD (coronary artery disease): (8) Elevated troponin: Plan: Troponin 41>42>48 No reports of chest pain Continue ASA, statin, beta-alma (9) Diarrhea: Plan: Seems to be a chronic issue C. difficile and stool PCR negative (10) COPD (chronic obstructive pulmonary disease): Plan: No signs of acute exacerbation (11) CKD (chronic kidney disease), stage III: Plan: Baseline creatinine mid 1's Creatinine 1.3>1.5 Diuretics held now (12) Diabetes mellitus type 2, diet-controlled: Plan: Hgb A1c 6.9 10/2021, A1c today 03/01/22 6.6 (13) Bladder cancer: Plan: History Had screening cystoscopy on 02/27/22 that showed recurrence of cancer Patient scheduled for TURBT in March (14) DVT prophylaxis: Plan: SQ heparin Admission and Anticipated Discharge Date Admission Date: February 28, 2022 Subjective Patient is seen and examined at bedside No new complaints Sodium, Cr levels slightly worse today with diuretic trial Denies chest pain, dyspnea, dizziness Appetite poor Review of Systems Review of Systems: All systems reviewed & are unremarkable except as noted in Subjective Physical Exam Physical Exam: Physical Exam: Vitals signs as noted above General Appearance:Moderately built and nourished, no apparent distress Head: normocephalic, Atraumatic Eyes: normal inspection, EOMI Neck: supple, Trachea midline Respiratory/Chest: Decreased breath sounds, CTA, No accessory muscle use Cardiovascular: S1, S2, + murmur Abdomen/GI:Soft, Non tender, Bowel sounds present Extremities/Musculoskeletal:normal inspection, Left BKA, Leg wound in dressing Neurologic/Psych:AAOX3, grossly no focal neurological deficits Skin: normal color, warm Results & Data Results & Data ([facility]) Vital Signs (Past 12 Hours) Vital Signs Temp Pulse Pulse Resp BP Pulse Ox 03/12/22 15:46 36.9 C 68 19 109/69 98 03/12/22 14:35 69 03/12/22 10:48 36.5 C 73 19 100/56 L 86 L 03/12/22 07:25 36.8 C 71 19 114/76 90 03/12/22 05:59 72 Laboratory Results [facility] 03/12/22 03/12/22 06:28 16:08 Sodium 128 L Potassium 5.4 H TNP Chloride 90 L Carbon Dioxide 29 BUN 103 H Creatinine 1.51 H D Glucose 124 H Calcium 9.7
[2022-03-12 18:19] LABS: Anion Gap 10 (3-11); BUN Creatinine Ratio 69.4 (10-20); Blood Urea Nitrogen 100 mg/dl (6-23); Calcium 9.1 mg/dl (8.5-10.1); Carbon Dioxide 24 mmol/L (21-32); Chloride 90 mmol/L (98-107); Creatinine Clr Calc Pharmacy 31.9 ml/min; Est GFR (African American) 42.2 ml/min; Est GFR (Non-African American) 36.4 ml/min; Glucose 147 mg/dl (70-99(Fasting)); Sodium 124 mmol/L (136-145)
[2022-03-12] MEDS: CITALOPRAM 40 MG TAB PO SCH (20:38)
[2022-03-12] MEDS: ATORVASTATIN 40 MG TAB PO SCH (20:38)
[2022-03-13] MEDS: oxyCODONE HCL IR 5 MG TAB (IMMEDIATE RELEASE) PO PRN (00:01)
[2022-03-13] MEDS: PANTOprazole 40 MG TAB PO SCH (06:15)
[2022-03-13] MEDS: HEPARIN SOD 5,000 UNIT/0.5 ML VIAL SQ SCH ×3 (06:16→22:21)
[2022-03-13 07:53] LABS: BUN Creatinine Ratio 64.1 (10-20); Calcium 9.1 mg/dl (8.5-10.1); Creatinine Clr Calc Pharmacy 30.3 ml/min; Est GFR (African American) 39.3 ml/min; Est GFR (Non-African American) 33.9 ml/min; Potassium 5.2 mmol/L (3.5-5.1)
[2022-03-13] MEDS: FERROUS GLUCONATE 324 MG TAB PO SCH ×2 (07:58→22:18)
[2022-03-13] MEDS: allopurinoL 300 MG TAB PO SCH (07:58)
[2022-03-13] MEDS: FOLIC ACID 1 MG TAB PO SCH (07:58)
[2022-03-13] MEDS: rifAXIMin 550 MG TABLET PO SCH ×2 (07:58→22:20)
[2022-03-13] MEDS: ASPIRIN 81 MG ECTAB PO SCH (07:58)
[2022-03-13] MEDS: GABAPENTIN 800 MG TAB PO SCH ×3 (07:58→22:22)
[2022-03-13] MEDS: UREA (UREA-NA) 15 GM PACK PO SCH ×2 (07:59→22:21)
[2022-03-13] MEDS: INSULIN ASPART PER UNIT SC SCH ×4 (07:59→22:25)
[2022-03-13 08:24] LABS: Hematocrit (blood only) 45.4 % (37-47); Hemoglobin 14.5 g/dL (12.0-16.0); Mean Corpuscular Hgb Conc 31.9 g/dL (32-36); Mean Corpuscular Volume 87.8 fL (80-100); Mean Platelet Volume 11.2 fL (7.4-10.4); Platelet Count 159 K/uL (130-400); RDW Coefficient of Variation 20.3 % (11.5-14.5); RDW Standard Deviation 64.3 fL (36.4-46.3); Red Blood Count 5.17 M/uL (4.2-5.4); White Blood Count 6.16 K/uL (4.8-10.8)
--- NOTE | 2022-03-13 14:03 | Nephrology Progress Note ---
Date of Service March 13, 2022 Assessment & Plan (1) Hyponatremia: Plan: Most consistent at this point w/ euvolemic hyponatremia. on urea since 03/07, continue fluid limit; has had no lasix since 03/07 PM > prior to that had bid 40 mg IV 03/01-03/04 and tid 03/04-03/07 in addition to several other doses; spironolactone was given 03/01-03/06. admitted 03/01 with sNa 130 and with slow drift down to 124 as recently as 03/09. Osms serum on 03/09 PM w/ sNa 125 were 302, w/ urine osm 355 and Phylicia 32 at admission. >>today her Na improved a bit after resuming then holding diuretics -continue urea >>>>pls ask d/c planning team to find out how much a monthly supply of urea at c urrent dose would cost this patient--likely to need longer term, often costly/difficult to find as OP - awaiting update -cont 1.5 L FR -cont <2 gm Na diet -encourage protein intake ->>recheck bmp and urine studies ordered and pending; for now cont to hold diuretics (2) CKD (chronic kidney disease), stage III: Plan: She is know to be non protenuric CKD 3b with baseline Scr 1.4 --1.6 > at baseline Her renal functions are at baseline or better Diuretics on hold per cardiology and nephro (3) Combined systolic and diastolic congestive heart failure: Plan: As above. >>cardiology ok with diuretics prn fluid mgt/ not necessarily strong/imperative for standing diuretics from cardiac standpoint Daily weights, strict I's and O's, low Na+ diet, 2 L fluid restriction -Echo 09/2020-EF 40 to 45%, grade 2 diastolic dysfunction, moderate aortic stenosis, mild aortic regurgitation, mild mitral stenosis, severe mitral regurgitation Repeat TTE show EF of 30-35%, LV is moderately dilated, severe MR, mod MS, LA mod dilated - Cardiology on board, not a candidate for MVR >>>>consider standing inhalers which she has currently prn only (4) Bladder cancer: Plan: screening cysto 02/27 w/ bladder CA recurrence; for TURBT in March Admission and Anticipated Discharge Date Admission Date: February 28, 2022 Subjective no interval events; remians off diuretics; no c/o sob or increased abd girth Review of Systems Review of Systems: All systems reviewed & are unremarkable except as noted in Subjective Physical Exam Constitutional: well developed, well nourished, + obese and cooperative; no acute distress Eyes: EOM intact bilaterally ENMT: Ears: no external ear abnormality Nose: no external nose abnormality Mouth: + dry oral mucous membranes Neck: no nuchal rigidity Respiratory: normal respiratory effort Auscultation: + crackles (inspiratory) and + wheezes (inspiratory); no rhonchi Cardiovascular: Rate/Rhythm: regular rate and regular rhythm Extremities: no edema Gastrointestinal (Abdomen): Inspection/Auscultation: normal bowel sounds Percussion/Palpation: abdomen soft; abdomen nontender Musculoskeletal: Extremities: strength 5/5 throughout Skin: no rashes, warm and dry + ecchymosis (extensive L arm) Neurologic: mcnally, fluent speech, some tremors/ abnormal limb movements Psychiatric: Orientation: oriented to person and oriented to place Results & Data ([facility]) Vital Signs (Past 12 Hours) Vital Signs Temp Pulse Pulse Resp BP BP Pulse Ox 03/13/22 10:59 36.9 C 70 19 105/67 90 03/13/22 06:42 36.7 C 59 L 20 128/62 93 03/13/22 06:13 68 03/13/22 03:30 36.7 C 90 20 105/67 97 Laboratory Results 03/13/22 06:51 03/13/22 06:51
[2022-03-13 14:50] LABS: BUN Creatinine Ratio 75.7 (10-20); Calcium 9.2 mg/dl (8.5-10.1); Creatinine Clr Calc Pharmacy 32.1 ml/min; Est GFR (African American) 42.2 ml/min; Est GFR (Non-African American) 36.4 ml/min; Potassium 5.2 mmol/L (3.5-5.1)
[2022-03-13] MEDS: METOPROLOL SUCC 25MG EXT REL TAB PO SCH (16:11)
--- NOTE | 2022-03-13 17:24 | Cardiology Progress Note ---
Date of Service March 13, 2022 Assessment & Plan (1) Ischemic cardiomyopathy: (2) Valvular heart disease: (3) Hyponatremia: Plan: Pt presented via ED on 02/28/22 with progressive SOB and abdominal distension, both of which seem to be improved. Ongoing low sodium and mildly elevated potassium. Hold furosemide and spironolactone. Most prudent course may be an ongoing trial off of diuretics. SQ heparin for DVT prophylaxis. Admission and Anticipated Discharge Date Admission Date: February 28, 2022 Subjective Pt resting comfortably. SR on telemetry. Results & Data ([facility]) Vital Signs (Past 12 Hours) Vital Signs Temp Pulse Pulse Resp BP BP Pulse Ox 03/13/22 15:39 36.8 C 66 19 106/60 90 03/13/22 14:32 69 03/13/22 10:59 36.9 C 70 19 105/67 90 03/13/22 06:42 36.7 C 59 L 20 128/62 93 03/13/22 06:13 68 Diagnostic Findings CBC 03/13/22 Range/Units 06:51 WBC 6.16 (4.8-10.8) K/uL RBC 5.17 (4.2-5.4) M/uL Hgb 14.5 (12.0-16.0) g/dL Hct 45.4 (37-47) % Plt Count 159 (130-400) K/uL Comprehensive Metabolic Panel 03/12/22 03/12/22 03/13/22 Range/Units 16:08 17:19 06:51 Sodium 124 L 126 L (136-145) mmol/L Potassium 5.0 5.2 H (3.5-5.1) mmol/L Chloride 90 L 88 L (98-107) mmol/L Carbon Dioxide 24 29 (21-32) mmol/L BUN 100 H 98 H (6-23) mg/dl Creatinine 1.44 H 1.53 H (0.6-1.2) mg/dl Glucose 147 H 138 H (70-99(Fasting)) mg/dl Calcium 9.1 9.1 (8.5-10.1) mg/dl 03/13/22 Range/Units 14:07 Sodium 125 L (136-145) mmol/L Potassium 5.2 H (3.5-5.1) mmol/L Chloride 88 L (98-107) mmol/L Carbon Dioxide 29 (21-32) mmol/L BUN 109 H (6-23) mg/dl Creatinine 1.44 H (0.6-1.2) mg/dl Glucose 120 H (70-99(Fasting)) mg/dl Calcium 9.2 (8.5-10.1) mg/dl Intake and Output 03/13/22 03/13/22 03/13/22 06:59 14:59 22:59 Intake Total 100 / 600 150 / 150 Output Total 0 / 1151 200 / 200 Balance 100 / -551 -50 / -50 Intake: Oral 100 / 600 150 / 150 Output: Urine Amount (Catheter) 0 / 1150 200 / 200 External 0 / 1150 200 / 200 Other: Weight 73.8 kg 73.8 kg Patient Weight 03/14/22 06:59 Weight 73.8 kg
--- NOTE | 2022-03-13 18:28 | Hospitalist Progress Note ---
Date of Service March 13, 2022 delayed entry date of service noted above Assessment & Plan (1) Volume overload: (2) Combined systolic and diastolic congestive heart failure: (3) Valvular heart disease: (4) HINKLE (nonalcoholic steatohepatitis): Plan: per Dr. Chung's notes with addendum: Patient is a 71 yr female who presented by referral PCPs office for evaluation of shortness of breath, worsening abdominal distention Volume overload Acute on chronic systolic diastolic heart failure Likely multifactorial due to chronic systolic and diastolic CHF, valvular heart disease, HINKLE --CT ABD/pelvis showing small bilateral pleural effusions, small amount of asc ites, evidence of anasarca --BNP 2529 --Troponin 41>42>48 --ECHO: Left ventricle is moderately dilated. EF 30 to 35%. Right ventricle systolic function is normal. Left atrium is moderately dilated. Moderate valvular aortic stenosis. Moderate to severe mitral annular calcification, severe mitral regurgitation and moderate mitral stenosis. Mild to moderate tricuspid regurgitation. Estimated pulmonary artery pressure 55 mmHg. --Monitor I's and O's, daily weight Appreciate cardiology, nephrology input Low-sodium diet, fluid restriction Weaned off of supplemental oxygen Not on JUAN JOSE/ARB detailed home blood pressure in the past. Likely would not tolerate Entresto Chest x-ray today showed persistent pulmonary edema Hold spironolactone for now IV diuretics transition to lasix PO 40 mg twice daily---Currently held due to low sodium levels Need to resume diuretics as able Monitor BMP 03/13 appears on the dry side Lasix on hold Hyponatremia likely due to hypervolemia, diuretics Fluid restriction Monitor sodium levels Sodium 128 today Continue Urea--May need it upon discharge as well Sodium levels better off diuretics 03/13 Na 126 Lasix held nephro on board HINKLE Continue rifaximin Spironolactone on hold (5) Leg wound, right: Plan: Right anterior swan wound in the setting of severe PVD No signs of sepsis Venous Doppler shows greater saphenous vein graft that appears patent Continue Wound care Completed Doxycycline Course -- appears stable (6) PAD (peripheral artery disease): (7) CAD (coronary artery disease): (8) Elevated troponin: Plan: Troponin 41>42>48 No reports of chest pain Continue ASA, statin, beta-alma (9) Diarrhea: Plan: Seems to be a chronic issue C. difficile and stool PCR negative (10) COPD (chronic obstructive pulmonary disease): Plan: No signs of acute exacerbation (11) CKD (chronic kidney disease), stage III: Plan: Baseline creatinine mid 1's Creatinine 1.3>1.5 Diuretics held now (12) Diabetes mellitus type 2, diet-controlled: Plan: Hgb A1c 6.9 10/2021, A1c today 03/01/22 6.6 (13) Bladder cancer: Plan: History Had screening cystoscopy on 02/27/22 that showed recurrence of cancer Patient scheduled for TURBT in March (14) DVT prophylaxis: Plan: SQ heparin Admission and Anticipated Discharge Date Admission Date: February 28, 2022 Subjective ff up for CHF, etc seen resting in bed, comfortable states she feels fine overall no chest pain, dyspnea, palpitations, dizziness no pain no other symptoms Review of Systems Review of Systems: all noted and negative except for above Physical Exam Physical Exam: General- oriented x 2, not in distress, speaks in sentences with no effort or accessory muscle use Eyes- anicteric Neck- no JVD Lungs- clear BS bilaterally, no rales/wheezes Heart- normal rate, regular rhythm; no murmurs Abdomen- normal bowel sounds, nondistended, soft, nontender Extremities- no pretibial edema, no calf tenderness Neuro- alert, oriented x 3; no gross focal neurologic deficits Skin- warm & dry Results & Data Results & Data ([facility]) Vital Signs (Past 12 Hours) Vital Signs Temp Pulse Pulse Resp BP BP Pulse Ox 03/13/22 15:39 36.8 C 66 19 106/60 90 03/13/22 14:32 69 03/13/22 10:59 36.9 C 70 19 105/67 90 03/13/22 06:42 36.7 C 59 L 20 128/62 93 all noted and reviewed including below
[2022-03-13] MEDS: ATORVASTATIN 40 MG TAB PO SCH (22:17)
[2022-03-13] MEDS: CITALOPRAM 40 MG TAB PO SCH (22:18)
[2022-03-14] MEDS: HEPARIN SOD 5,000 UNIT/0.5 ML VIAL SQ SCH ×3 (06:23→19:55)
[2022-03-14] MEDS: PANTOprazole 40 MG TAB PO SCH (06:23)
[2022-03-14] MEDS: UREA (UREA-NA) 15 GM PACK PO SCH ×2 (09:05→19:55)
[2022-03-14] MEDS: allopurinoL 300 MG TAB PO SCH (09:05)
[2022-03-14] MEDS: ASPIRIN 81 MG ECTAB PO SCH (09:05)
[2022-03-14] MEDS: FOLIC ACID 1 MG TAB PO SCH (09:05)
[2022-03-14] MEDS: rifAXIMin 550 MG TABLET PO SCH ×2 (09:06→19:54)
[2022-03-14] MEDS: FERROUS GLUCONATE 324 MG TAB PO SCH ×2 (09:06→19:51)
[2022-03-14] MEDS: GABAPENTIN 800 MG TAB PO SCH ×3 (09:06→19:53)
[2022-03-14] MEDS: INSULIN ASPART PER UNIT SC SCH ×4 (09:11→20:05)
[2022-03-14 10:33] LABS: BUN Creatinine Ratio 80.4 (10-20); Calcium 9.1 mg/dl (8.5-10.1); Creatinine Clr Calc Pharmacy 30.3 ml/min; Est GFR (African American) 39.3 ml/min; Est GFR (Non-African American) 33.9 ml/min
--- NOTE | 2022-03-14 12:15 | Cardiology Progress Note ---
Date of Service March 14, 2022 Assessment & Plan (1) Ischemic cardiomyopathy: (2) Valvular heart disease: (3) Hyponatremia: Plan: Pt presented via ED on 02/28/22 with progressive SOB and abdominal distension, both of which seem to be improved. Ongoing low sodium and mildly elevated potassium. Hold furosemide and spironolactone indefinitely. Continue Urea-Na. SQ heparin for DVT prophylaxis. Admission and Anticipated Discharge Date Admission Date: February 28, 2022 Subjective Patient seen in cardiology follow-up. She is awake, sitting upright, and in good spirits. Denies subjective shortness of breath. Sinus rhythm with first- degree AV block noted on telemetry. Physical Exam 2 Constitutional: WD/WN, vitals as above Respiratory: normal respiratory effort, lungs clear to auscultation Cardiovascular: Rate/Rhythm: regular rate Heart Sounds: + murmur (1/6 systolic murmur) Gastrointestinal (Abdomen): normal bowel sounds, soft, nontender, no hepatosplenomegaly Neurologic: PERRL, EOMI, accommodation nl, no face palsy, no dysarthria Results & Data ([facility]) Vital Signs (Past 12 Hours) Vital Signs Temp Pulse Pulse Resp BP BP Pulse Ox 03/14/22 11:22 36.8 C 75 16 113/70 98 03/14/22 07:25 68 03/14/22 07:00 37.1 C 69 18 111/77 98 03/14/22 03:35 36.6 C 67 20 112/53 L 96 Laboratory Results Comprehensive Metabolic Panel 03/13/22 03/14/22 Range/Units 14:07 09:49 Sodium 125 L 123 L (136-145) mmol/L Potassium 5.2 H 5.0 (3.5-5.1) mmol/L Chloride 88 L 86 L (98-107) mmol/L Carbon Dioxide 29 29 (21-32) mmol/L BUN 109 H 123 H (6-23) mg/dl Creatinine 1.44 H 1.53 H (0.6-1.2) mg/dl Glucose 120 H 171 H (70-99(Fasting)) mg/dl Calcium 9.2 9.1 (8.5-10.1) mg/dl Intake and Output 03/13/22 03/14/22 03/14/22 22:59 06:59 14:59 Intake Total 340 / 590 100 / 590 Output Total 100 / 500 200 / 500 Balance 240 / 90 -100 / 90 Intake: Oral 340 / 590 100 / 590 Output: Urine Amount (Catheter) 100 / 500 200 / 500 External 100 / 500 200 / 500 Other: Weight 74.1 kg
[2022-03-14] MEDS: METOPROLOL SUCC 25MG EXT REL TAB PO SCH (15:49)
--- NOTE | 2022-03-14 17:10 | Hospitalist Progress Note ---
Date of Service March 14, 2022 Assessment & Plan (1) Volume overload: (2) Combined systolic and diastolic congestive heart failure: (3) Valvular heart disease: (4) HINKLE (nonalcoholic steatohepatitis): Plan: per Dr. Chung's notes with addendum: Patient is a 71 yr female who presented by referral PCPs office for evaluation of shortness of breath, worsening abdominal distention Volume overload Acute on chronic systolic diastolic heart failure Likely multifactorial due to chronic systolic and diastolic CHF, valvular heart disease, HINKLE --CT ABD/pelvis showing small bilateral pleural effusions, small amount of ascites, evidence of anasarca --BNP 2529 --Troponin 41>42>48 --ECHO: Left ventricle is moderately dilated. EF 30 to 35%. Right ventricle systolic function is normal. Left atrium is moderately dilated. Moderate valvular aortic stenosis. Moderate to severe mitral annular calcification, severe mitral regurgitation and moderate mitral stenosis. Mild to moderate tricuspid regurgitation. Estimated pulmonary artery pressure 55 mmHg. --Monitor I's and O's, daily weight Appreciate cardiology, nephrology input Low-sodium diet, fluid restriction Weaned off of supplemental oxygen Not on JUAN JOSE/ARB detailed home blood pressure in the past. Likely would not tolerate Entresto Chest x-ray today showed persistent pulmonary edema Hold spironolactone for now IV diuretics transition to lasix PO 40 mg twice daily---Currently held due to low sodium levels Need to resume diuretics as able Monitor BMP 03/14 euvolemic Lasix on hold for low Na Hyponatremia likely due to hypervolemia, diuretics Fluid restriction Monitor sodium levels Sodium 128 today Continue Urea--May need it upon discharge as well 03/14 Na still at 123 on urea BID HINKLE Continue rifaximin Spironolactone on hold (5) Leg wound, right: Plan: Right anterior swan wound in the setting of severe PVD Venous Doppler shows greater saphenous vein graft that appears patent Continue Wound care Completed Doxycycline Course 03/14 healing well (6) PAD (peripheral artery disease): (7) CAD (coronary artery disease): (8) Elevated troponin: Plan: Troponin 41>42>48 No reports of chest pain Continue ASA, statin, beta-alma (9) Diarrhea: Plan: Seems to be a chronic issue C. difficile and stool PCR negative (10) COPD (chronic obstructive pulmonary disease): Plan: No signs of acute exacerbation (11) CKD (chronic kidney disease), stage III: Plan: Baseline creatinine mid 1's Creatinine 1.3>1.5 Diuretics held now (12) Diabetes mellitus type 2, diet-controlled: Plan: Hgb A1c 6.9 10/2021, A1c today 03/01/22 6.6 (13) Bladder cancer: Plan: History Had screening cystoscopy on 02/27/22 that showed recurrence of cancer Patient scheduled for TURBT in March (14) DVT prophylaxis: Plan: SQ heparin Admission and Anticipated Discharge Date Admission Date: February 28, 2022 Subjective ff up for acute on chronic CHF, etc seen resting in bed, comfortable sleeping but easily awakened States that she feels fine today no chest pain, dyspnea, palpitations, dizziness no fever/chills no other symptoms Review of Systems Review of Systems: all noted and negative except for above Physical Exam Physical Exam: General- oriented x 3, not in distress, speaks in sentences with no effort or accessory muscle use Eyes- anicteric Neck- no JVD Lungs- clear breath sounds bilaterally, no rales/wheezes Heart- normal rate, regular rhythm; no murmurs Abdomen- normal bowel sounds, nondistended, soft, nontender Extremities- no pretibial edema, no calf tenderness Neuro- alert, oriented x 3; no gross focal neurologic deficits Skin- warm & dry Results & Data Results & Data ([facility]) Vital Signs (Past 12 Hours) Vital Signs Temp Pulse Pulse Resp BP BP Pulse Ox 03/14/22 16:49 70 03/14/22 11:22 36.8 C 75 16 113/70 98 03/14/22 07:25 68 03/14/22 07:00 37.1 C 69 18 111/77 98 all noted and reviewed including below
[2022-03-14 17:57] LABS: Calcium 9.3 mg/dl (8.5-10.1); Creatinine Clr Calc Pharmacy 34.9 ml/min; Est GFR (African American) 46.5 ml/min; Est GFR (Non-African American) 40.1 ml/min; Potassium 5.6 mmol/L (3.5-5.1)
--- NOTE | 2022-03-14 18:17 | Nephrology Progress Note ---
Date of Service March 14, 2022 Assessment & Plan (1) Hyponatremia: Plan: worsening serum sodium. Most consistent at this point w/ euvolemic hyponatremia. on urea since 03/07, continue fluid limit; has had no lasix since 03/07 PM > prior to that had bid 40 mg IV 03/01-03/04 and tid 03/04-03/07 in addition to several other doses; spironolactone was given 03/01-03/06. admitted 03/01 with sNa 130 and with slow drift down to 124 as recently as 03/09. Osms serum on 03/09 PM w/ sNa 125 were 302, w/ urine osm 355 and Phylicia 32 at admission; serum osms 306 on repeat. >>>her urea has almost tripled in about 3 days w/ no steroids on board and not dehydrated > likely d/t urea > will lower dose back to lower one -will start patiromer d/t high K tonight >> ? if heparin dose could be lowered/may help w/ K -ordered cxr given higher 02 needs; if not worse, consider salt tab; if worse may need to revisit diuretics >>>>pls ask d/c planning team to find out how much a monthly supply of urea at current dose would cost this patient--likely to need longer term, often costly/difficult to find as OP - awaiting update -cont 1.5 L FR -cont <2 gm Na diet -encourage protein intake ->>for now cont to hold diuretics >recheck bmp and iron studies ordered for AM (2) CKD (chronic kidney disease), stage III: Plan: She is know to be non protenuric CKD 3b with baseline Scr 1.4 --1.6 > at baseline Her renal functions are at baseline or better Diuretics on hold per cardiology and nephro (3) Combined systolic and diastolic congestive heart failure: Plan: As above. >>cardiology ok with diuretics prn fluid mgt/ not necessarily strong/imperative for standing diuretics from cardiac standpoint Daily weights, strict I's and O's, low Na+ diet, 2 L fluid restriction -Echo 09/2020-EF 40 to 45%, grade 2 diastolic dysfunction, moderate aortic stenosis, mild aortic regurgitation, mild mitral stenosis, severe mitral regurgitation Repeat TTE show EF of 30-35%, LV is moderately dilated, severe MR, mod MS, LA mod dilated - Cardiology on board, not a candidate for MVR >>>>consider standing inhalers which she has currently prn only (4) Bladder cancer: Plan: screening cysto 02/27 w/ bladder CA recurrence; for TURBT in March Admission and Anticipated Discharge Date Admission Date: February 28, 2022 Subjective seen on PM rounds; no complaints; working at eating; tells me she had a lot of bleeding this am from what sound like heparin injections; needing more 02 now > no sob complaints though Review of Systems Review of Systems: All systems reviewed & are unremarkable except as noted in Subjective Physical Exam Constitutional: well developed, well nourished, + obese and cooperative; no acute distress Eyes: EOM intact bilaterally ENMT: Ears: no external ear abnormality Nose: no external nose abnormality Mouth: + dry oral mucous membranes Neck: no nuchal rigidity Respiratory: normal respiratory effort Auscultation: + crackles (inspiratory) and + wheezes (inspiratory); no rhonchi Cardiovascular: Rate/Rhythm: regular rate and regular rhythm Extremities: no edema Gastrointestinal (Abdomen): Inspection/Auscultation: normal bowel sounds Percussion/Palpation: abdomen soft; abdomen nontender Musculoskeletal: Extremities: strength 5/5 throughout Skin: no rashes, warm and dry + ecchymosis (extensive L arm) Neurologic: mcnally, fluent speech, no tremor Psychiatric: Orientation: oriented to person and oriented to place Results & Data ([facility]) Vital Signs (Past 12 Hours) Vital Signs Temp Pulse Pulse Resp BP BP Pulse Ox 03/14/22 16:49 70 03/14/22 11:22 36.8 C 75 16 113/70 98 03/14/22 07:25 68 03/14/22 07:00 37.1 C 69 18 111/77 98 Laboratory Results 03/14/22 17:16
[2022-03-14] MEDS ORDERED: SODIUM CHLORIDE 1 GM TABLET PO SCH (18:20)
[2022-03-14 18:29] LABS: Hemoglobin 14.1 g/dL (12.0-16.0); Mean Corpuscular Hemoglobin 27.8 pg (25-34); Mean Corpuscular Volume 86.6 fL (80-100); RDW Coefficient of Variation 19.8 % (11.5-14.5); RDW Standard Deviation 62.9 fL (36.4-46.3); Red Blood Count 5.08 M/uL (4.2-5.4); White Blood Count 6.74 K/uL (4.8-10.8)
[2022-03-14 18:31] LABS: Mean Platelet Volume 11.8 fL (7.4-10.4); Platelet Count 148 K/uL (130-400)
[2022-03-14] MEDS: CITALOPRAM 40 MG TAB PO SCH (19:51)
[2022-03-14] MEDS: ATORVASTATIN 40 MG TAB PO SCH (19:51)
--- NOTE | 2022-03-14 21:35 | XRay Report ---
XR chest 1V portable CLINICAL HISTORY: worse hypoxia. COMPARISON STUDY: 03/07/2022 TECHNIQUE: 1 view of the chest FINDINGS: Single frontal view of the chest demonstrates the heart size to again be moderately to markedly enlar ged. There has been interval resolution of mild central vascular congestion. The lungs are clear of a lveolar opacities. No definite pleural effusions can be identified on this study. PA and lateral radi ographs would be the study of choice for further evaluation. There is no evidence for vascular conges tion. There is no acute osseous pathology. IMPRESSION: 1. Cardiomegaly with resolution of mild central vascular congestion. ACT 112: Negative or not required by law. Electronically signed by: Darius Duff M.D. 03/14/2022 9:33 PM
[2022-03-14] MEDS: PATIROMER CALCIUM SORBITEX 8.4 GM PACK PO SCH (23:20)
[2022-03-15] MEDS: HEPARIN SOD 5,000 UNIT/0.5 ML VIAL SQ SCH ×3 (05:39→21:39)
[2022-03-15] MEDS: PANTOprazole 40 MG TAB PO SCH (05:39)
[2022-03-15] MEDS: INSULIN ASPART PER UNIT SC SCH ×4 (09:08→21:00)
[2022-03-15 09:15] LABS: BUN Creatinine Ratio 100.8 (10-20); Calcium 9.4 mg/dl (8.5-10.1); Creatinine Clr Calc Pharmacy 35.8 ml/min; Est GFR (African American) 48.7 ml/min; Potassium 4.8 mmol/L (3.5-5.1)
--- NOTE | 2022-03-15 10:04 | Nephrology Progress Note ---
Date of Service March 15, 2022 Assessment & Plan (1) Hyponatremia: Plan: worsening serum sodium. Most consistent at this point w/ euvolemic hyponatremia. on urea since 03/07, continue fluid limit; has had no lasix since 03/07 PM > prior to that had bid 40 mg IV 03/01-03/04 and tid 03/04-03/07 in addition to several other doses; spironolactone was given 03/01-03/06. admitted 03/01 with sNa 130 and with slow drift down to 124 as recently as 03/09. Osms serum on 03/09 PM w/ sNa 125 were 302, w/ urine osm 355 and Jennyfer 32 at admission; serum osms 306 on repeat. >>>her urea has almost tripled in about 3 days w/ no steroids on board and not dehydrated, lowered dose back to 15 BId 03/14 -started on patiromer d/t high K 03/14-- K better>> ? if heparin dose could be lowered/may help w/ K -Cxr-shows Cardiomegaly with resolution of mild central vascular congestion - 02 needs has not changed- restart salt tab today and can restart diuretics if o2 requirements increase. >>>>pls ask d/c planning team to find out how much a monthly supply of urea at current dose would cost this patient--likely to need longer term, often costly/difficult to find as OP - awaiting update -Liberalize FR to 1.8 L FR -Q 8 na- -encourage protein intake ->>for now cont to hold diuretics - Repeat Uosm ,Posm and Jennyfer - she may need fluids( in that case stop salt tablets) (2) CKD (chronic kidney disease), stage III: Plan: She is know to be non protenuric CKD 3b with baseline Scr 1.4 --1.6 > at baseline Her renal functions are at baseline or better Diuretics on hold per cardiology and nephro (3) Combined systolic and diastolic congestive heart failure: Plan: As above. >>cardiology ok with diuretics prn fluid mgt/ not necessarily strong/imperative for standing diuretics from cardiac standpoint Daily weights, strict I's and O's, low Na+ diet, 2 L fluid restriction -Echo 09/2020-EF 40 to 45%, grade 2 diastolic dysfunction, moderate aortic stenosis, mild aortic regurgitation, mild mitral stenosis, severe mitral regurgitation Repeat TTE show EF of 30-35%, LV is moderately dilated, severe MR, mod MS, LA mod dilated - Cardiology on board, not a candidate for MVR >>>>consider standing inhalers which she has currently prn only (4) Bladder cancer: Plan: screening cysto 02/27 w/ bladder CA recurrence; for TURBT in March Admission and Anticipated Discharge Date Admission Date: February 28, 2022 Subjective Looks volume depleted Somlonent, arousable no pedal edema. Review of Systems Review of Systems: All systems reviewed & are unremarkable except as noted in Subjective Physical Exam Physical Exam: Head: normocephalic, Atraumatic Eyes: normal inspection, EOMI Neck: supple, Trachea midline Respiratory/Chest: Decreased breath sounds, +Basal Crackles Cardiovascular: S1, S2, + murmur Abdomen/GI:Soft, distended, mild tender, Bowel sounds present Extremities/Musculoskeletal:normal inspection, Left BKA, + multiple bruises Neurologic/Psych:AAOX3, grossly no focal neurological deficits Skin: normal color, warm Results & Data ([facility]) Vital Signs (Past 12 Hours) Vital Signs Temp Pulse Pulse Resp BP Pulse Ox 03/15/22 07:00 36.3 C L 69 20 113/75 91 03/15/22 06:38 68 03/15/22 03:21 69 03/15/22 03:00 37.1 C 70 20 115/69 91 03/14/22 23:00 36.6 C 68 20 112/70 98 Laboratory Results 03/14/22 17:16 03/15/22 08:06
[2022-03-15] MEDS: allopurinoL 300 MG TAB PO SCH (11:10)
[2022-03-15] MEDS: ASPIRIN 81 MG ECTAB PO SCH (11:10)
[2022-03-15] MEDS: FOLIC ACID 1 MG TAB PO SCH (11:11)
[2022-03-15] MEDS: FERROUS GLUCONATE 324 MG TAB PO SCH ×2 (11:11→20:11)
[2022-03-15] MEDS: rifAXIMin 550 MG TABLET PO SCH ×2 (11:11→20:11)
[2022-03-15] MEDS: GABAPENTIN 800 MG TAB PO SCH ×3 (11:11→20:11)
[2022-03-15] MEDS: UREA (UREA-NA) 15 GM PACK PO SCH ×2 (11:11→20:12)
[2022-03-15 12:20] LABS: Calcium 9.4 mg/dl (8.5-10.1); Creatinine Clr Calc Pharmacy 36.3 ml/min; Est GFR (African American) 49.6 ml/min; Est GFR (Non-African American) 42.8 ml/min
[2022-03-15] MEDS: PATIROMER CALCIUM SORBITEX 8.4 GM PACK PO SCH (15:03)
[2022-03-15] MEDS: METOPROLOL SUCC 25MG EXT REL TAB PO SCH (15:39)
[2022-03-15] MEDS: SODIUM CHLORIDE 1 GM TABLET PO SCH ×2 (15:39→21:39)
--- NOTE | 2022-03-15 16:36 | Cardiology Progress Note ---
Date of Service March 15, 2022 Assessment & Plan (1) Ischemic cardiomyopathy: (2) Valvular heart disease: (3) Hyponatremia: Plan: Pt presented via ED on 02/28/22 with progressive SOB and abdominal distension, both of which seem to be improved. Ongoing low sodium and mildly elevated potassium. Echocardiogram this admission 03/01/2022 revealed moderate left ventricular systolic dysfunction, LVEF 30 to 35%, moderate left atrial dilatation, moderate aortic valve stenosis, moderate to severe mitral annular calcification, severe mitral regurgitation, moderate mitral stenosis. As previously noted she has significant mixed valvular heart disease involving the mitral valve and aortic valve, but her comorbidities as well as the anatomical nature of her valve disease do not lend itself to intervention. Hold furosemide and spironolactone indefinitely. Continue Urea-Na. SQ heparin for DVT prophylaxis. Admission and Anticipated Discharge Date Admission Date: February 28, 2022 Subjective Patient seen in follow-up. She is in good spirits. Mild wheezing noted. But not subjectively short of breath. Telemetry reveals stable sinus rhythm first- degree AV block. Physical Exam Constitutional: WD/WN, vitals as above Respiratory: normal respiratory effort, lungs clear to auscultation Cardiovascular: RRR, no murmur, no edema Rate/Rhythm: regular rate Heart Sounds: + murmur (1/6 systolic murmur) Gastrointestinal (Abdomen): normal bowel sounds, soft, nontender, no hepatosplenomegaly Neurologic: PERRL, EOMI, accommodation nl, no face palsy, no dysarthria Results & Data ([facility]) Vital Signs (Past 12 Hours) Vital Signs Temp Pulse Pulse Resp BP BP Pulse Ox 03/15/22 15:59 72 03/15/22 15:00 36.7 C 72 20 105/60 93 03/15/22 10:33 36.5 C 70 20 108/70 94 03/15/22 07:00 36.3 C L 69 20 113/75 91 03/15/22 06:38 68 Laboratory Results CBC 03/14/22 Range/Units 17:16 WBC 6.74 (4.8-10.8) K/uL RBC 5.08 (4.2-5.4) M/uL Hgb 14.1 (12.0-16.0) g/dL Hct 44.0 (37-47) % Plt Count 148 (130-400) K/uL Comprehensive Metabolic Panel 03/14/22 03/15/22 03/15/22 Range/Units 17:16 08:06 11:39 Sodium 123 L 122 L 123 L (136-145) mmol/L Potassium 5.6 H 4.8 5.0 (3.5-5.1) mmol/L Chloride 88 L 87 L 87 L (98-107) mmol/L Carbon Dioxide 24 28 27 (21-32) mmol/L BUN 129 H 129 H 126 H (6-23) mg/dl Creatinine 1.33 H 1.28 H 1.26 H (0.6-1.2) mg/dl Glucose 116 H 118 H 116 H (70-99(Fasting)) mg/dl Calcium 9.3 9.4 9.4 (8.5-10.1) mg/dl Intake and Output 03/15/22 03/15/22 03/15/22 06:59 14:59 22:59 Intake Total 100 / 440 Output Total 500 / 1000 350 / 350 Balance -400 / -560 -350 / -350 Intake: Oral 100 / 440 Output: Urine Amount (Catheter) 500 / 1000 350 / 350 External 500 / 1000 350 / 350 Other: Weight 72.3 kg 72.3 kg Patient Weight 03/16/22 06:59 Weight 72.3 kg
--- NOTE | 2022-03-15 19:40 | Hospitalist Progress Note ---
Date of Service March 15, 2022 Assessment & Plan (1) Volume overload: (2) Combined systolic and diastolic congestive heart failure: (3) Valvular heart disease: (4) HINKLE (nonalcoholic steatohepatitis): Plan: per Dr. Chung's notes with addendum: Patient is a 71 yr female who presented by referral PCPs office for evaluation of shortness of breath, worsening abdominal distention Volume overload Acute on chronic systolic diastolic heart failure Likely multifactorial due to chronic systolic and diastolic CHF, valvular heart disease, HINKLE --CT ABD/pelvis showing small bilateral pleural effusions, small amount of ascites, evidence of anasarca --BNP 2529 --Troponin 41>42>48 --ECHO: Left ventricle is moderately dilated. EF 30 to 35%. Right ventricle systolic function is normal. Left atrium is moderately dilated. Moderate valvular aortic stenosis. Moderate to severe mitral annular calcification, severe mitral regurgitation and moderate mitral stenosis. Mild to moderate tricuspid regurgitation. Estimated pulmonary artery pressure 55 mmHg. --Monitor I's and O's, daily weight Appreciate cardiology, nephrology input Low-sodium diet, fluid restriction Weaned off of supplemental oxygen Not on JUAN JOSE/ARB detailed home blood pressure in the past. Likely would not tolerate Entresto Chest x-ray today showed persistent pulmonary edema Hold spironolactone for now IV diuretics transition to lasix PO 40 mg twice daily---Currently held due to low sodium levels Need to resume diuretics as able Monitor BMP 03/15 euvolemic to dry Lasix on hold for low Na Hyponatremia likely due to hypervolemia, diuretics Fluid restriction Monitor sodium levels Sodium 128 today Continue Urea--May need it upon discharge as well 03/15 Na still at 123 on urea BID added Salt tab BID discussed with nephro ARIN Continue rifaximin Spironolactone on hold (5) Leg wound, right: Plan: Right anterior swan wound in the setting of severe PVD Venous Doppler shows greater saphenous vein graft that appears patent Continue Wound care Completed Doxycycline Course 03/15 healing well (6) PAD (peripheral artery disease): (7) CAD (coronary artery disease): (8) Elevated troponin: Plan: Troponin 41>42>48 No reports of chest pain Continue ASA, statin, beta-alma (9) Diarrhea: Plan: Seems to be a chronic issue C. difficile and stool PCR negative (10) COPD (chronic obstructive pulmonary disease): Plan: No signs of acute exacerbation (11) CKD (chronic kidney disease), stage III: Plan: Baseline creatinine mid 1's Creatinine 1.3>1.5 Diuretics held now (12) Diabetes mellitus type 2, diet-controlled: Plan: Hgb A1c 6.9 10/2021, A1c today 03/01/22 6.6 (13) Bladder cancer: Plan: History Had screening cystoscopy on 02/27/22 that showed recurrence of cancer Patient scheduled for TURBT in March (14) DVT prophylaxis: Plan: SQ heparin Admission and Anticipated Discharge Date Admission Date: February 28, 2022 Subjective ff up for CHF, etc seen resting in bed, comfortable states she feels fine overall no chest pain, dyspnea, palpitations, dizziness no other symptoms Review of Systems Review of Systems: all noted and negative except for above Physical Exam Physical Exam: General- oriented x 2, not in distress, speaks in sentences with no effort or accessory muscle use Eyes- anicteric Neck- no JVD Lungs- clear BS bilaterally, no rales/wheezes Heart- normal rate, regular rhythm; no murmurs Abdomen- normal bowel sounds, nondistended, soft, no tenderness Extremities- no pretibial edema, no calf tenderness Neuro- alert, oriented x 3; no gross focal neurologic deficits Skin- warm & dry Results & Data Results & Data ([facility]) Vital Signs (Past 12 Hours) Vital Signs Temp Pulse Pulse Resp BP BP Pulse Ox 03/15/22 18:59 36.9 C 70 16 109/66 97 03/15/22 15:59 72 03/15/22 15:00 36.7 C 72 20 105/60 93 03/15/22 10:33 36.5 C 70 20 108/70 94 all noted and reviewed including below
[2022-03-15] MEDS: ATORVASTATIN 40 MG TAB PO SCH (20:12)
[2022-03-15] MEDS: CITALOPRAM 40 MG TAB PO SCH (20:12)
[2022-03-15 21:02] LABS: BUN Creatinine Ratio 105.4 (10-20); Calcium 9.2 mg/dl (8.5-10.1); Creatinine Clr Calc Pharmacy 35.5 ml/min; Est GFR (African American) 48.2 ml/min; Est GFR (Non-African American) 41.6 ml/min
[2022-03-16] MEDS: HEPARIN SOD 5,000 UNIT/0.5 ML VIAL SQ SCH ×3 (05:44→21:14)
[2022-03-16] MEDS: PANTOprazole 40 MG TAB PO SCH (05:44)
[2022-03-16 07:50] LABS: Calcium 9.2 mg/dl (8.5-10.1); Creatinine Clr Calc Pharmacy 35.8 ml/min; Est GFR (African American) 48.2 ml/min; Est GFR (Non-African American) 41.6 ml/min; Potassium 4.9 mmol/L (3.5-5.1)
[2022-03-16] MEDS: FOLIC ACID 1 MG TAB PO SCH (08:57)
[2022-03-16] MEDS: allopurinoL 300 MG TAB PO SCH (08:57)
[2022-03-16] MEDS: GABAPENTIN 800 MG TAB PO SCH ×3 (08:57→20:40)
[2022-03-16] MEDS: FERROUS GLUCONATE 324 MG TAB PO SCH ×2 (08:57→20:41)
[2022-03-16] MEDS: rifAXIMin 550 MG TABLET PO SCH ×2 (08:57→20:40)
[2022-03-16] MEDS: INSULIN ASPART PER UNIT SC SCH ×4 (08:58→22:01)
[2022-03-16] MEDS: ASPIRIN 81 MG ECTAB PO SCH (09:35)
[2022-03-16] MEDS: UREA (UREA-NA) 15 GM PACK PO SCH (09:36)
--- NOTE | 2022-03-16 10:48 | Nephrology Progress Note ---
Date of Service March 16, 2022 Assessment & Plan (1) Hyponatremia: Plan: worsening serum sodium. Most consistent at this point w/ euvolemic hyponatremia. on urea since 03/07, continue fluid limit; has had no lasix since 03/07 PM > prior to that had bid 40 mg IV 03/01-03/04 and tid 03/04-03/07 in addition to several other doses; spironolactone was given 03/01-03/06. admitted 03/01 with sNa 130 and with slow drift down to 124 as recently as 03/09. Osms serum on 03/09 PM w/ sNa 125 were 302, w/ urine osm 355 and Phylicia 32 at admission; serum osms 306 on repeat. Sodium 124 today. -Will reduce urea 15 g daily, her BUN is very high -Hold Celexa for few days as it may be the main dray driver of hyponatremia. Patient may eventually need different antidepressant -encourage protein intake ->>for now cont to hold diuretics (2) CKD (chronic kidney disease), stage III: Plan: She is know to be non protenuric CKD 3b with baseline Scr 1.4 --1.6 > at baseline Her renal functions are at baseline or better Diuretics on hold per cardiology and nephro (3) Combined systolic and diastolic congestive heart failure: Plan: As above. >>cardiology ok with diuretics prn fluid mgt/ not necessarily strong/imperative for standing diuretics from cardiac standpoint Daily weights, strict I's and O's, low Na+ diet, 2 L fluid restriction -Echo 09/2020-EF 40 to 45%, grade 2 diastolic dysfunction, moderate aortic stenosis, mild aortic regurgitation, mild mitral stenosis, severe mitral regurgitation Repeat TTE show EF of 30-35%, LV is moderately dilated, severe MR, mod MS, LA mod dilated - Cardiology on board, not a candidate for MVR >>>>consider standing inhalers which she has currently prn only (4) Bladder cancer: Plan: screening cysto 02/27 w/ bladder CA recurrence; for TURBT in March Admission and Anticipated Discharge Date Admission Date: February 28, 2022 Subjective Seen in follow-up for hyponatremia. She feels well. Issue is poor p.o. intake. Patient does not like the hospital food. No leg swelling in the right leg. Review of Systems Review of Systems: All other systems were reviewed and negative except as noted in HPI Physical Exam Physical Exam: General exam: Appears comfortable, no acute distress HEENT: Pupils are equal and reactive to light Neck: No JVD, neck is supple trachea is midline Respiratory system: Clear breath sounds bilaterally. Gastrointestinal: Abdomen is soft, non distended, non tender, bowel sounds are present CVS: Regular rate and rhythm. No murmurs, rubs or gallops Musculoskeletal: No joint or muscle tenderness Extremities: Non tender, no edema, peripheral pulses are present Neuro: Oriented, no tremors, no focal neurological deficits Skin: No rashes Results & Data ([facility]) Vital Signs (Past 12 Hours) Vital Signs Temp Pulse Pulse Resp BP Pulse Ox 03/16/22 08:15 65 03/16/22 06:40 37.1 C 68 18 115/71 90 03/16/22 02:38 36.8 C 54 L 18 108/68 95 Laboratory Results 03/16/22 05:44
[2022-03-16] MEDS: SODIUM CHLORIDE 1 GM TABLET PO SCH ×3 (10:49→20:40)
--- NOTE | 2022-03-16 13:33 | Hospitalist Progress Note ---
Date of Service March 16, 2022 Assessment & Plan (1) Volume overload: (2) Combined systolic and diastolic congestive heart failure: (3) Valvular heart disease: (4) HINKLE (nonalcoholic steatohepatitis): Plan: per Dr. Chung's notes with addendum: Patient is a 71 yr female who presented by referral PCPs office for evaluation of shortness of breath, worsening abdominal distention Volume overload Acute on chronic systolic diastolic heart failure Likely multifactorial due to chronic systolic and diastolic CHF, valvular heart disease, HINKLE --CT ABD/pelvis showing small bilateral pleural effusions, small amount of ascites, evidence of anasarca --BNP 2529 --Troponin 41>42>48 --ECHO: Left ventricle is moderately dilated. EF 30 to 35%. Right ventricle systolic function is normal. Left atrium is moderately dilated. Moderate valvular aortic stenosis. Moderate to severe mitral annular calcification, severe mitral regurgitation and moderate mitral stenosis. Mild to moderate tricuspid regurgitation. Estimated pulmonary artery pressure 55 mmHg. --Monitor I's and O's, daily weight Appreciate cardiology, nephrology input Low-sodium diet, fluid restriction Weaned off of supplemental oxygen Not on JUAN JOSE/ARB detailed home blood pressure in the past. Likely would not tolerate Entresto Chest x-ray today showed persistent pulmonary edema Hold spironolactone for now IV diuretics transition to lasix PO 40 mg twice daily---Currently held due to low sodium levels Need to resume diuretics as able Monitor BMP 03/16 euvolemic to dry Lasix on hold for low Na Hyponatremia likely due to hypervolemia, diuretics Fluid restriction Monitor sodium levels Sodium 128 today Continue Urea--May need it upon discharge as well 03/16 Na still at 123 urea changed to once a day Salt tab BID discussed with nephmoshe HINKLE Continue rifaximin Spironolactone on hold (5) Leg wound, right: Plan: Right anterior swan wound in the setting of severe PVD Venous Doppler shows greater saphenous vein graft that appears patent Continue Wound care Completed Doxycycline Course 03/16 healing well (6) PAD (peripheral artery disease): (7) CAD (coronary artery disease): (8) Elevated troponin: Plan: Troponin 41>42>48 No reports of chest pain Continue ASA, statin, beta-alma (9) Diarrhea: Plan: Seems to be a chronic issue C. difficile and stool PCR negative (10) COPD (chronic obstructive pulmonary disease): Plan: No signs of acute exacerbation (11) CKD (chronic kidney disease), stage III: Plan: Baseline creatinine mid 1's Creatinine 1.3>1.5 Diuretics held now (12) Diabetes mellitus type 2, diet-controlled: Plan: Hgb A1c 6.9 10/2021, A1c today 03/01/22 6.6 (13) Bladder cancer: Plan: History Had screening cystoscopy on 02/27/22 that showed recurrence of cancer Patient scheduled for TURBT in March (14) DVT prophylaxis: Plan: SQ heparin Admission and Anticipated Discharge Date Admission Date: February 28, 2022 Subjective Follow-up for CHF, etc Seen resting in bed, sleeping but easily awakened Feels sleepy this afternoon Denies shortness of breath, chest pain or any other symptoms No new issues per core worker of Systems Review of Systems: all noted and negative except for above Physical Exam Physical Exam: General- oriented x 2, not in distress, speaks in sentences with no effort or accessory muscle use Eyes- anicteric Neck- no JVD Lungs- clear BS bilaterally, no rales/wheezes Heart- normal rate, regular rhythm; no murmurs Abdomen- normal bowel sounds, nondistended, soft, nontender Extremities- no pretibial edema, no calf tenderness Neuro- alert, oriented x 3; no gross focal neurologic deficits Skin- warm & dry Results & Data Results & Data ([facility]) Vital Signs (Past 12 Hours) Vital Signs Temp Pulse Pulse Resp BP Pulse Ox 03/16/22 10:55 37.0 C 66 20 97/57 L 98 03/16/22 08:15 65 03/16/22 06:40 37.1 C 68 18 115/71 90 03/16/22 02:38 36.8 C 54 L 18 108/68 95 all noted and reviewed including below
[2022-03-16] MEDS: METOPROLOL SUCC 25MG EXT REL TAB PO SCH (16:11)
[2022-03-16] MEDS: ATORVASTATIN 40 MG TAB PO SCH (20:41)
[2022-03-16] MEDS: ONDANSETRON INJ 2 MG/ML 2 ML VIAL IV PRN (21:22)
[2022-03-17] MEDS: PANTOprazole 40 MG TAB PO SCH (05:40)
[2022-03-17] MEDS: HEPARIN SOD 5,000 UNIT/0.5 ML VIAL SQ SCH ×3 (05:45→21:01)
[2022-03-17 09:01] LABS: BUN Creatinine Ratio 102.4 (10-20); Calcium 9.2 mg/dl (8.5-10.1); Creatinine Clr Calc Pharmacy 37.5 ml/min; Est GFR (African American) 51.1 ml/min; Est GFR (Non-African American) 44.1 ml/min; Potassium 4.8 mmol/L (3.5-5.1)
[2022-03-17] MEDS: allopurinoL 300 MG TAB PO SCH (09:29)
[2022-03-17] MEDS: ASPIRIN 81 MG ECTAB PO SCH (09:29)
[2022-03-17] MEDS: FERROUS GLUCONATE 324 MG TAB PO SCH ×2 (09:29→21:00)
[2022-03-17] MEDS: FOLIC ACID 1 MG TAB PO SCH (09:29)
[2022-03-17] MEDS: SODIUM CHLORIDE 1 GM TABLET PO SCH ×3 (09:30→20:59)
[2022-03-17] MEDS: UREA (UREA-NA) 15 GM PACK PO SCH (09:30)
[2022-03-17] MEDS: GABAPENTIN 800 MG TAB PO SCH ×3 (09:30→21:00)
[2022-03-17] MEDS: rifAXIMin 550 MG TABLET PO SCH ×2 (09:30→21:00)
[2022-03-17] MEDS: INSULIN ASPART PER UNIT SC SCH ×4 (09:32→22:32)
--- NOTE | 2022-03-17 09:46 | Nephrology Progress Note ---
Date of Service March 17, 2022 Assessment & Plan (1) Hyponatremia: Plan: worsening serum sodium. Most consistent at this point w/ euvolemic hyponatremia. on urea since 03/07, continue fluid limit; has had no lasix since 03/07 PM > prior to that had bid 40 mg IV 03/01-03/04 and tid 03/04-03/07 in addition to several other doses; spironolactone was given 03/01-03/06. admitted 03/01 with sNa 130 and with slow drift down to 124 as recently as 03/09. Osms serum on 03/09 PM w/ sNa 125 were 302, w/ urine osm 355 and Phylicia 32 at admission; serum osms 306 on repeat. Sodium 125 today. -Will continue urea 15 g daily, her BUN is very high -Hold Celexa for few days as it may be the main solo truck driver of hyponatremia. Patient may eventually need different antidepressant -encourage protein intake ->>for now cont to hold diuretics (2) CKD (chronic kidney disease), stage III: Plan: She is know to be non protenuric CKD 3b with baseline Scr 1.4 --1.6 > at baseline Her renal functions are at baseline or better Diuretics on hold - Avoid nephrotoxins (3) Combined systolic and diastolic congestive heart failure: Plan: As above. >>cardiology ok with diuretics prn fluid mgt/ not necessarily strong/imperative for standing diuretics from cardiac standpoint Daily weights, strict I's and O's, low Na+ diet, 2 L fluid restriction -Echo 09/2020-EF 40 to 45%, grade 2 diastolic dysfunction, moderate aortic stenosis, mild aortic regurgitation, mild mitral stenosis, severe mitral regurgitation Repeat TTE show EF of 30-35%, LV is moderately dilated, severe MR, mod MS, LA mod dilated - Cardiology on board, not a candidate for MVR (4) Bladder cancer: Plan: screening cysto 02/27 w/ bladder CA recurrence; for TURBT in March Admission and Anticipated Discharge Date Admission Date: February 28, 2022 Subjective Seen in f/u for hyponatremia. She feels better. making urine. na uptrending Review of Systems Review of Systems: All other systems were reviewed and negative except as noted in HPI Physical Exam Physical Exam: General exam: Appears comfortable, no acute distress HEENT: Pupils are equal and reactive to light Neck: No JVD, neck is supple trachea is midline Respiratory system: Clear breath sounds bilaterally. Gastrointestinal: Abdomen is soft, non distended, non tender, bowel sounds are present CVS: Regular rate and rhythm. No murmurs, rubs or gallops Musculoskeletal: No joint or muscle tenderness Extremities: Non tender, no edema, peripheral pulses are present. left BKA Neuro: Oriented, no tremors, no focal neurological deficits Skin: No rashes Results & Data ([facility]) Vital Signs (Past 12 Hours) Vital Signs Temp Pulse Pulse Resp BP Pulse Ox 03/17/22 08:06 65 03/17/22 07:00 36.8 C 63 18 105/61 98 03/17/22 02:26 37 C 66 16 109/64 97 03/16/22 22:47 36.9 C 69 16 110/65 96 03/16/22 22:25 69 Laboratory Results 03/17/22 07:30
--- NOTE | 2022-03-17 09:59 | Psychiatric Consultation ---
Date of Consultation March 17, 2022 Impression / Recommendations Impression 71 yo woman with history of depression and multiple medical conditions including CHF, COPD, DM, CKD, and CAD admitted for CHF and with significant hyponatremia. Psychiatry consulted for recommendations regarding discontinuation of citalopram due to hyponatremia. Given significant hyponatremia, and potential for SSRIs to cause or contribute to hyponatremia, agree with discontinuation at this time. If patient develops worsening mood symptoms in the context of discontinuation please reach out to psych liason to offer additional support. Given high risk associated with ongoing hyponatremia appropriate for abrupt discontinuation of citalopram, she may experience some SSRI withdrawal symptoms which can be managed symptomatically (fatigue tends to be most common symptom if any occur). If Na+ improves and stabilizes in the future and SSRI is felt to be safe and necessary for mood would start: escitalopram 5mg qd OR sertraline 25mg qd as both of these options are felt to have a slightly safer cardiac risk profile compared with citalopram. Psych History Identifying Data 71 yo woman with history of depression and multiple medical conditions including CHF, COPD, DM, CKD, and CAD admitted for CHF and with significant hyponatremia. Psychiatry consulted for recommendations regarding discontinuation of citalopram due to hyponatremia. History of Present Illness Chart reviewed Yael is being managed for multiple medical conditions including hyponatremia. Has been prescribed citalopram 40mg qd. No evidence for prior inpatient psychiatric hospitalizations nor SI nor past suicide attempts per chart review. Reviewed recent nursing notes, she has periods of confusion and forgetfulness but other times is oriented. Has been behaviorally appropriate per notes. Allergies Allergy/AdvReac Type Severity Reaction Status Date / Time Penicillins Allergy Intermediate Hives, Verified 11/19/21 15:03 dyspepsia, diarrhea Iodinated Contrast Media AdvReac Intermediate Severe Verified 02/28/22 16:41 [Iodinated Contrast- Oral vomiting and IV Dye] oxycodone [From Percocet] AdvReac Intermediate Vomiting Verified 02/28/22 16:41 penicillin G AdvReac Intermediate n/v Verified 02/28/22 16:40 Home Medications Medication Instructions Recorded Confirmed Type gabapentin 800 mg tablet 800 mg PO TID tab 07/22/18 02/28/22 History atorvastatin 80 mg tablet 80 mg PO HS 03/01/19 02/28/22 History ferrous gluconate 324 mg (38 mg 324 mg PO TID 03/01/19 02/28/22 History iron) tablet folic acid 1 mg tablet 1 mg PO QAM 03/01/19 02/28/22 History metoprolol succinate 25 mg 12.5 mg PO DAILY@1530 03/01/19 02/28/22 History tablet,extended release 24 hr omeprazole 40 mg capsule,delayed 40 mg PO DAILYBB 03/01/19 02/28/22 History release nitroglycerin 0.4 mg sublingual 0.4 mg SUBLINGUAL DIRECTED PRN 04/05/19 02/28/22 History tablet allopurinol 300 mg tablet 300 mg PO QAM 01/03/20 02/28/22 History furosemide 40 mg tablet (Lasix) 40 mg PO BID 07/21/20 02/28/22 History spironolactone 100 mg tablet 100 mg PO QAM 07/21/20 02/28/22 History (Aldactone) aspirin 81 mg tablet,delayed 81 mg PO QAM 09/19/20 02/28/22 History release (Aspirin Low Dose) citalopram 40 mg tablet 40 mg PO HS 09/19/20 02/28/22 History albuterol sulfate 90 mcg/actuation 2 puff INHALATION QID PRN 10/08/21 02/28/22 History aerosol inhaler methocarbamol 500 mg tablet 500 mg PO BID 10/08/21 02/28/22 History solifenacin 5 mg tablet (Vesicare) 5 mg PO QAM 10/24/21 02/28/22 History ipratropium 0.5 mg-albuterol 3 mg 3 ml INHALATION Q6H PRN 11/19/21 02/28/22 History (2.5 mg base)/3 mL nebulization soln fluticasone propionate 50 1 spray INTRANASAL DAILY 02/28/22 02/28/22 History mcg/actuation nasal spray,suspension melatonin 1 mg tablet 1 mg PO HS 02/28/22 02/28/22 History multivitamin with minerals 1 tab PO DAILY 02/28/22 02/28/22 History (Multiple Vitamin-Minerals) rifaximin 550 mg tablet (Xifaxan) 550 mg PO AMHS 02/28/22 02/28/22 History vitamin B complex 1 tab PO QAM 02/28/22 02/28/22 History Personal History Beliefs That Will Affect Care: None Patient History Medical History (Updated 03/09/22 @ 13:09 by Graham Anderson, DO) Acid reflux Anemia Aortic stenosis Aortic valve regurgitation Asthma Bladder cancer Bladder mass s/p resection 10/02/20 at [facility] by Dr. Everett CAD (coronary artery disease) stent x1 (2004) Carotid artery disease s/p R/L carotid endarterectomy (several years ago) Charcot foot due to diabetes mellitus Chronic combined systolic and diastolic CHF (congestive heart failure) Cirrhosis of liver CKD (chronic kidney disease), stage III COPD (chronic obstructive pulmonary disease) COVID-19 Depression Diabetes mellitus type 2, diet-controlled Diabetic peripheral neuropathy Gout H/O [id number] deficiency History of alcohol abuse History of anxiety History of bladder cancer dx 09/2020; treated surgically + BCG treatment (LAST BCG TREATMENT "A COUPLE DAYS AGO") History of depression History of endometriosis "Stage I, grade I" History of MD (myocardial infarction) History of MRSA infection History of sleep apnea No device HTN (hypertension) Hypercholesteremia SARANYA (iron deficiency anemia) Ischemic cardiomyopathy Mitral regurgitation HINKLE (nonalcoholic steatohepatitis) PAD (peripheral artery disease) Pressure ulcer of below knee amputation stump Rheumatoid arthritis 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) Valvular heart disease VHD (valvular heart disease) Surgical History History of arthroscopy of left shoulder History of bilateral carotid endarterectomy History of bladder surgery Transurethral Resection Bladder Tumor Large, With multiple fulguration History of cardiac cath stent x1 (2004) History of cholecystectomy History of colonoscopy History of cystoscopy History of hysterectomy History of left below knee amputation + prosthesis History of lumbar discectomy History of reverse total replacement of right shoulder joint Reverse total shoulder arthroplasty (01/30/2021): Grade I, MAC 3, ETT 7.0 + PNB at [facility] S/P debridement LEFT BKA WOUND (WOUND CLINIC PATIENT) S/P vascular surgery Right common femoral endarterectomy, right femoral and posterior tibial bypass (11/02/2020) Family History Father Family history of diabetes mellitus Family history of COPD (chronic obstructive pulmonary disease) Sister Breast cancer Other No family history of adverse response to anesthesia Social History Smoking Status: Current every day smoker Tobacco Type: Cigarettes Years Smoked: 54; Cigarettes Per Day: 1-3; Second Hand Exposure: Yes; Do You Dip or Chew Tobacco: No; Tobacco Cessation Education Requested by Patient: No Hx Alcohol Use: No Hx Substance Use: No Preferred Language: Divehi Communication Ability: Effective Visual Impairment: Limited Hearing Ability: Normal Manager Title Required: No Beliefs That Will Affect Care: None marital status: Current Living Situation: Spouse Current Living Situation Comment: lives at home with current occupational status: disabled How many Children do You have: 0 Other Information That Helps Us Care for You: No Feels Safe at Home: Yes Safety Concerns: Feels Safe At This Time Safety Concerns Comment: emotional/mental but not physical per patient. Assistive Devices: Cane, Walker and Wheelchair Assistive Devices Comment: Pt only uses w/c Physical Exam Vital Signs (Past 24 Hours): Last Vital Signs Temp 36.8 C 03/17/22 07:00 Pulse 65 03/17/22 08:06 Resp 18 03/17/22 07:00 BP 105/61 03/17/22 07:00 Pulse Ox 98 03/17/22 07:00 Results & Data (PSY) Laboratory Results Na+ ranging 123-125 mmol/L in the last week Medications Administered Acetaminophen (Acetaminophen 325 Mg Tab) 650 mg PO Q4H PRN PRN Reason: Pain or Fever Stop: 03/30/22 20:34 Last Admin: 03/13/22 22:26 Dose: 650 mg Documented by: [id number] Allopurinol ([facility]op[facility]ol 300 Mg Tab) [facility] [place] Stop: 03/31/22 08:59 Last Admin: 03/17/22 09:29 Dose: 300 mg Documented by: [id number] Admin: 03/16/22 08:57 Dose: 300 mg Documented by: [id number] Admin: 03/15/22 11:10 Dose: 300 mg Documented by: [id number] Admin: 03/14/22 09:05 Dose: 300 mg Documented by: [id number] Admin: 03/13/22 07:58 Dose: 300 mg Documented by: [id number] Admin: 03/12/22 08:00 Dose: 300 mg Documented by: [id number] Admin: 03/11/22 08:02 Dose: 300 mg Documented by: [id number] Admin: 03/10/22 09:59 Dose: 300 mg Documented by: [id number] Admin: 03/09/22 10:00 Dose: 300 mg Documented by: [id number] Admin: 03/08/22 08:19 Dose: 300 mg Documented by: [id number] Admin: 03/07/22 07:33 Dose: 300 mg Documented by: [id number] Admin: 03/06/22 08:09 Dose: 300 mg Documented by: [id number] Cosigned by: [id number] Admin: 03/05/22 07:33 Dose: 300 mg Documented by: [id number] Admin: 03/04/22 09:18 Dose: 300 mg Documented by: [id number] Admin: 03/03/22 08:36 Dose: 300 mg Documented by: [id number] Admin: 03/02/22 08:28 Dose: 300 mg Documented by: [id number] Admin: 03/01/22 07:53 Dose: 300 mg Documented by: [id number] Aspirin (Aspirin 81 Mg Ectab) 81 mg PO [facility] Stop: 03/31/22 08:59 Last Admin: 03/17/22 09:29 Dose: 81 mg Documented by: [id number] Admin: 03/16/22 09:35 Dose: 81 mg Documented by: [id number] Admin: 03/15/22 11:10 Dose: 81 mg Documented by: [id number] Admin: 03/14/22 09:05 Dose: 81 mg Documented by: [id number] Admin: 03/13/22 07:58 Dose: 81 mg Documented by: [id number] Admin: 03/12/22 08:01 Dose: 81 mg Documented by: [id number] Admin: 03/11/22 08:02 Dose: 81 mg Documented by: [id number] Admin: 03/10/22 09:59 Dose: 81 mg Documented by: [id number] Admin: 03/09/22 10:00 Dose: 81 mg Documented by: [id number] Admin: 03/08/22 08:19 Dose: 81 mg Documented by: [id number] Admin: 03/07/22 07:32 Dose: 81 mg Documented by: [id number] Admin: 03/06/22 08:12 Dose: 81 mg Documented by: [id number] Cosigned by: [id number] Admin: 03/05/22 07:33 Dose: 81 mg Documented by: [id number] Admin: 03/04/22 09:17 Dose: 81 mg Documented by: [id number] Admin: 03/03/22 08:35 Dose: 81 mg Documented by: [id number] Admin: 03/02/22 08:28 Dose: 81 mg Documented by: [id number] Admin: 03/01/22 07:53 Dose: 81 mg Documented by: [id number] Atorvastatin Calcium (Atorvastatin 40 Mg Tab) 80 mg PO HS RAFY Stop: 03/30/22 20:59 Last Admin: 03/16/22 20:41 Dose: 80 mg Documented by: [id number] Admin: 03/15/22 20:12 Dose: 80 mg Documented by: [id number] Admin: 03/14/22 19:51 Dose: 80 mg Documented by: [id number] Admin: 03/13/22 22:17 Dose: 80 mg Documented by: [id number] Admin: 03/12/22 20:38 Dose: 80 mg Documented by: [id number] Admin: 03/11/22 21:02 Dose: 80 mg Documented by: [id number] Admin: 03/10/22 20:50 Dose: 80 mg Documented by: [id number] Admin: 03/09/22 21:11 Dose: 80 mg Documented by: [id number] Admin: 03/08/22 20:23 Dose: 80 mg Documented by: [id number] Admin: 03/07/22 20:47 Dose: 80 mg Documented by: [id number] Admin: 03/06/22 20:31 Dose: 80 mg Documented by: [id number] Admin: 03/05/22 21:52 Dose: 80 mg Documented by: [id number] Admin: 03/04/22 21:55 Dose: 80 mg Documented by: [id number] Admin: 03/03/22 21:45 Dose: 80 mg Documented by: [id number] Admin: 03/02/22 21:12 Dose: 80 mg Documented by: [id number] Admin: 03/01/22 21:34 Dose: 80 mg Documented by: [id number] Admin: 02/28/22 23:06 Dose: 80 mg Documented by: [id number] Citalopram Hydrobromide (Citalopram 40 Mg Tab) 40 mg PO HS RAFY Stop: 03/30/22 20:59 Last Admin: 03/15/22 20:12 Dose: 40 mg Documented by: [id number] Admin: 03/14/22 19:51 Dose: 40 mg Documented by: [id number] Admin: 03/13/22 22:18 Dose: 40 mg Documented by: [id number] Admin: 03/12/22 20:38 Dose: 40 mg Documented by: [id number] Admin: 03/11/22 21:02 Dose: 40 mg Documented by: [id number] Admin: 03/10/22 20:50 Dose: 40 mg Documented by: [id number] Admin: 03/09/22 21:11 Dose: 40 mg Documented by: [id number] Admin: 03/08/22 20:24 Dose: 40 mg Documented by: [id number] Admin: 03/07/22 20:47 Dose: 40 mg Documented by: [id number] Admin: 03/06/22 20:31 Dose: 40 mg Documented by: [id number] Admin: 03/05/22 21:53 Dose: 40 mg Documented by: [id number] Admin: 03/04/22 21:55 Dose: 40 mg Documented by: [id number] Admin: 03/03/22 21:45 Dose: 40 mg Documented by: [id number] Admin: 03/02/22 21:13 Dose: 40 mg Documented by: [id number] Admin: 03/01/22 21:35 Dose: 40 mg Documented by: [id number] Admin: 02/28/22 23:08 Dose: 40 mg Documented by: [id number] Ferrous Gluconate (Ferrous Gluconate 324 Mg Tab) 324 mg PO BID RAFY Stop: 03/30/22 20:59 Last Admin: 03/17/22 09:29 Dose: 324 mg Documented by: [id number] Admin: 03/16/22 20:41 Dose: 324 mg Documented by: [id number] Admin: 03/16/22 08:57 Dose: 324 mg Documented by: [id number] Admin: 03/15/22 20:11 Dose: 324 mg Documented by: [id number] Admin: 03/15/22 11:11 Dose: 324 mg Documented by: [id number] Admin: 03/14/22 19:51 Dose: 324 mg Documented by: [id number] Admin: 03/14/22 09:06 Dose: 324 mg Documented by: [id number] Admin: 03/13/22 22:18 Dose: 324 mg Documented by: [id number] Admin: 03/13/22 07:58 Dose: 324 mg Documented by: [id number] Admin: 03/12/22 20:38 Dose: 324 mg Documented by: [id number] Admin: 03/12/22 08:01 Dose: 324 mg Documented by: [id number] Admin: 03/11/22 21:01 Dose: 324 mg Documented by: [id number] Admin: 03/11/22 08:02 Dose: 324 mg Documented by: [id number] Admin: 03/10/22 20:50 Dose: 324 mg Documented by: [id number] Admin: 03/10/22 10:00 Dose: 324 mg Documented by: [id number] Admin: 03/09/22 21:11 Dose: 324 mg Documented by: [id number] Admin: 03/09/22 10:00 Dose: 324 mg Documented by: [id number] Admin: 03/08/22 20:24 Dose: 324 mg Documented by: [id number] Admin: 03/08/22 08:19 Dose: 324 mg Documented by: [id number] Admin: 03/07/22 20:47 Dose: 324 mg Documented by: [id number] Admin: 03/07/22 07:32 Dose: 324 mg Documented by: [id number] Admin: 03/06/22 20:32 Dose: 324 mg Documented by: [id number] Admin: 03/06/22 08:10 Dose: 324 mg Documented by: [id number] Cosigned by: [id number] Admin: 03/05/22 21:52 Dose: 324 mg Documented by: [id number] Admin: 03/05/22 07:34 Dose: 324 mg Documented by: [id number] Admin: 03/04/22 21:55 Dose: 324 mg Documented by: [id number] Admin: 03/04/22 09:16 Dose: 324 mg Documented by: [id number] Admin: 03/03/22 21:46 Dose: Not Given Documented by: [id number] Admin: 03/03/22 08:36 Dose: 324 mg Documented by: [id number] Admin: 03/02/22 21:13 Dose: 324 mg Documented by: [id number] Admin: 03/02/22 08:28 Dose: 324 mg Documented by: [id number] Admin: 03/01/22 21:34 Dose: 324 mg Documented by: [id number] Admin: 03/01/22 07:54 Dose: 324 mg Documented by: [id number] Admin: 02/28/22 23:09 Dose: 324 mg Documented by: [id number] Folic Acid (Folic Acid 1 Mg Tab) 1 mg PO QAM [facility] Stop: 03/31/22 08:59 Last Admin: 03/17/22 09:29 Dose: 1 mg Documented by: [id number] Admin: 03/16/22 08:57 Dose: 1 mg Documented by: [id number] Admin: 03/15/22 11:11 Dose: 1 mg Documented by: [id number] Admin: 03/14/22 09:05 Dose: 1 mg Documented by: [id number] Admin: 03/13/22 07:58 Dose: 1 mg Documented by: [id number] Admin: 03/12/22 08:01 Dose: 1 mg Documented by: [id number] Admin: 03/11/22 08:02 Dose: 1 mg Documented by: [id number] Admin: 03/10/22 10:03 Dose: 1 mg Documented by: [id number] Admin: 03/09/22 10:00 Dose: 1 mg Documented by: [id number] Admin: 03/08/22 08:19 Dose: 1 mg Documented by: [id number] Admin: 03/07/22 07:32 Dose: 1 mg Documented by: [id number] Admin: 03/06/22 08:10 Dose: 1 mg Documented by: [id number] Cosigned by: [id number] Admin: 03/05/22 07:33 Dose: 1 mg Documented by: [id number] Admin: 03/04/22 09:16 Dose: 1 mg Documented by: [id number] Admin: 03/03/22 08:36 Dose: 1 mg Documented by: [id number] Admin: 03/02/22 08:28 Dose: 1 mg Documented by: [id number] Admin: 03/01/22 07:54 Dose: 1 mg Documented by: [id number] Gabapentin (Gabapentin 800 Mg Tab) 800 mg PO TID RAFY Stop: 03/30/22 20:59 Last Admin: 03/17/22 09:30 Dose: 800 mg Documented by: [id number] Admin: 03/16/22 20:40 Dose: 800 mg Documented by: [id number] Admin: 03/16/22 13:26 Dose: 800 mg Documented by: [id number] Admin: 03/16/22 08:57 Dose: 800 mg Documented by: [id number] Admin: 03/15/22 20:11 Dose: 800 mg Documented by: [id number] Admin: 03/15/22 15:01 Dose: 800 mg Documented by: [id number] Admin: 03/15/22 11:11 Dose: 800 mg Documented by: [id number] Admin: 03/14/22 19:53 Dose: Not Given Documented by: [id number] Admin: 03/14/22 14:00 Dose: 800 mg Documented by: [id number] Admin: 03/14/22 09:06 Dose: 800 mg Documented by: [id number] Admin: 03/13/22 22:22 Dose: 800 mg Documented by: [id number] Admin: 03/13/22 13:34 Dose: 800 mg Documented by: [id number] Admin: 03/13/22 07:58 Dose: 800 mg Documented by: [id number] Admin: 03/12/22 20:38 Dose: 800 mg Documented by: [id number] Admin: 03/12/22 14:14 Dose: 800 mg Documented by: [id number] Admin: 03/12/22 08:01 Dose: 800 mg Documented by: [id number] Admin: 03/11/22 21:01 Dose: 800 mg Documented by: [id number] Admin: 03/11/22 15:10 Dose: 800 mg Documented by: [id number] Admin: 03/11/22 08:01 Dose: 800 mg Documented by: [id number] Admin: 03/10/22 20:51 Dose: 800 mg Documented by: [id number] Admin: 03/10/22 14:36 Dose: 800 mg Documented by: [id number] Admin: 03/10/22 10:00 Dose: 800 mg Documented by: [id number] Admin: 03/09/22 21:11 Dose: 800 mg Documented by: [id number] Admin: 03/09/22 15:02 Dose: 800 mg Documented by: [id number] Admin: 03/09/22 10:00 Dose: 800 mg Documented by: [id number] Admin: 03/08/22 20:24 Dose: 800 mg Documented by: [id number] Admin: 03/08/22 13:33 Dose: 800 mg Documented by: [id number] Admin: 03/08/22 08:20 Dose: 800 mg Documented by: [id number] Admin: 03/07/22 20:47 Dose: 800 mg Documented by: [id number] Admin: 03/07/22 14:53 Dose: 800 mg Documented by: [id number] Admin: 03/07/22 07:32 Dose: 800 mg Documented by: [id number] Admin: 03/06/22 20:32 Dose: 800 mg Documented by: [id number] Admin: 03/06/22 13:42 Dose: 800 mg Documented by: [id number] Cosigned by: [id number] Admin: 03/06/22 08:09 Dose: 800 mg Documented by: [id number] Cosigned by: [id number] Admin: 03/05/22 21:53 Dose: 800 mg Documented by: [id number] Admin: 03/05/22 13:58 Dose: 800 mg Documented by: [id number] Admin: 03/05/22 07:33 Dose: 800 mg Documented by: [id number] Admin: 03/04/22 21:54 Dose: 800 mg Documented by: [id number] Admin: 03/04/22 13:50 Dose: 800 mg Documented by: [id number] Admin: 03/04/22 09:17 Dose: 800 mg Documented by: [id number] Admin: 03/03/22 21:45 Dose: 800 mg Documented by: [id number] Admin: 03/03/22 14:45 Dose: 800 mg Documented by: [id number] Admin: 03/03/22 08:36 Dose: 800 mg Documented by: [id number] Admin: 03/02/22 21:13 Dose: 800 mg Documented by: [id number] Admin: 03/02/22 14:30 Dose: 800 mg Documented by: [id number] Admin: 03/02/22 08:29 Dose: 800 mg Documented by: [id number] Admin: 03/01/22 21:34 Dose: 800 mg Documented by: [id number] Admin: 03/01/22 13:37 Dose: 800 mg Documented by: [id number] Admin: 03/01/22 07:54 Dose: 800 mg Documented by: [id number] Admin: 02/28/22 23:08 Dose: 800 mg Documented by: [id number] Heparin Sodium (Porcine) (Heparin Sod 5,000 Unit/0.5 Ml Vial) 5,000 units SQ Q8 RAFY Stop: 03/30/22 21:59 Last Admin: 03/17/22 05:45 Dose: Not Given Documented by: [id number] Admin: 03/16/22 21:14 Dose: 5,000 units Documented by: [id number] Admin: 03/16/22 13:26 Dose: Not Given Documented by: [id number] Admin: 03/16/22 05:44 Dose: 5,000 units Documented by: [id number] Admin: 03/15/22 21:39 Dose: 5,000 units Documented by: [id number] Admin: 03/15/22 15:02 Dose: Not Given Documented by: [id number] Admin: 03/15/22 05:39 Dose: 5,000 units Documented by: [id number] Admin: 03/14/22 19:55 Dose: 5,000 units Documented by: [id number] Admin: 03/14/22 14:02 Dose: Not Given Documented by: [id number] Admin: 03/14/22 06:23 Dose: 5,000 units Documented by: [id number] Admin: 03/13/22 22:21 Dose: 5,000 units Documented by: [id number] Admin: 03/13/22 13:34 Dose: 5,000 units Documented by: [id number] Admin: 03/13/22 06:16 Dose: 5,000 units Documented by: [id number] Admin: 03/12/22 20:55 Dose: Not Given Documented by: [id number] Admin: 03/12/22 14:14 Dose: 5,000 units Documented by: [id number] Admin: 03/12/22 05:45 Dose: 5,000 units Documented by: [id number] Admin: 03/11/22 21:03 Dose: 5,000 units Documented by: [id number] Admin: 03/11/22 15:10 Dose: 5,000 units Documented by: [id number] Admin: 03/11/22 05:31 Dose: 5,000 units Documented by: [id number] Admin: 03/10/22 21:02 Dose: Not Given Documented by: [id number] Admin: 03/10/22 14:36 Dose: 5,000 units Documented by: [id number] Admin: 03/10/22 05:40 Dose: Not Given Documented by: [id number] Admin: 03/09/22 21:11 Dose: Not Given Documented by: [id number] Admin: 03/09/22 15:02 Dose: 5,000 units Documented by: [id number] Admin: 03/09/22 05:40 Dose: 5,000 units Documented by: [id number] Admin: 03/08/22 20:22 Dose: Not Given Documented by: [id number] Admin: 03/08/22 13:33 Dose: Not Given Documented by: [id number] Admin: 03/08/22 05:14 Dose: Not Given Documented by: [id number] Admin: 03/07/22 21:01 Dose: Not Given Documented by: [id number] Admin: 03/07/22 14:53 Dose: Not Given Documented by: [id number] Admin: 03/07/22 07:31 Dose: 5,000 units Documented by: [id number] Admin: 03/06/22 21:04 Dose: 5,000 units Documented by: [id number] Admin: 03/06/22 13:42 Dose: 5,000 units Documented by: [id number] Cosigned by: [id number] Admin: 03/06/22 06:31 Dose: Not Given Documented by: [id number] Admin: 03/05/22 21:18 Dose: 5,000 units Documented by: [id number] Admin: 03/05/22 13:55 Dose: 5,000 units Documented by: [id number] Admin: 03/05/22 05:57 Dose: 5,000 units Documented by: [id number] Admin: 03/04/22 21:54 Dose: 5,000 units Documented by: [id number] Admin: 03/04/22 13:50 Dose: 5,000 units Documented by: [id number] Admin: 03/04/22 06:04 Dose: Not Given Documented by: [id number] Admin: 03/03/22 21:47 Dose: 5,000 units Documented by: [id number] Admin: 03/03/22 14:45 Dose: 5,000 units Documented by: [id number] Admin: 03/03/22 05:50 Dose: 5,000 units Documented by: [id number] Admin: 03/02/22 21:15 Dose: 5,000 units Documented by: [id number] Admin: 03/02/22 14:31 Dose: 5,000 units Documented by: [id number] Admin: 03/02/22 05:53 Dose: 5,000 units Documented by: [id number] Admin: 03/01/22 21:36 Dose: 5,000 units Documented by: [id number] Admin: 03/01/22 13:37 Dose: 5,000 units Documented by: [id number] Admin: 03/01/22 06:07 Dose: 5,000 units Documented by: [id number] Admin: 02/28/22 23:09 Dose: 5,000 units Documented by: [id number] Insulin Aspart (Insulin Aspart Per Unit) 0 units SC ACHS RAFY Stop: 03/30/22 20:59 Last Admin: 03/17/22 09:32 Dose: Not Given Documented by: [id number] Admin: 03/16/22 22:01 Dose: Not Given Documented by: [id number] Cosigned by: [id number] Admin: 03/16/22 18:12 Dose: Not Given Documented by: [id number] Admin: 03/16/22 13:25 Dose: 2 units Documented by: [id number] Cosigned by: [id number] Admin: 03/16/22 08:58 Dose: Not Given Documented by: [id number] Admin: 03/15/22 21:00 Dose: Not Given Documented by: [id number] Cosigned by: [id number] Admin: 03/15/22 17:11 Dose: 2 units Documented by: [id number] Cosigned by: [id number] Admin: 03/15/22 12:10 Dose: Not Given Documented by: [id number] Cosigned by: [id number] Admin: 03/15/22 09:08 Dose: Not Given Documented by: [id number] Cosigned by: [id number] Admin: 03/14/22 20:05 Dose: 2 units Documented by: [id number] Cosigned by: [id number] Admin: 03/14/22 18:10 Dose: Not Given Documented by: [id number] Admin: 03/14/22 12:18 Dose: Not Given Documented by: [id number] Admin: 03/14/22 09:11 Dose: 3 units Documented by: [id number] Cosigned by: [id number] Admin: 03/13/22 22:25 Dose: 1 units Documented by: [id number] Cosigned by: [id number] Admin: 03/13/22 16:41 Dose: Not Given Documented by: [id number] Admin: 03/13/22 11:58 Dose: Not Given Documented by: [id number] Admin: 03/13/22 07:59 Dose: 3 units Documented by: [id number] Cosigned by: [id number] Admin: 03/12/22 21:34 Dose: Not Given Documented by: [id number] Cosigned by: [id number] Admin: 03/12/22 17:13 Dose: Not Given Documented by: [id number] Admin: 03/12/22 12:47 Dose: Not Given Documented by: [id number] Admin: 03/12/22 08:00 Dose: Not Given Documented by: [id number] Admin: 03/11/22 21:04 Dose: 1 units Documented by: [id number] Cosigned by: [id number] Admin: 03/11/22 17:42 Dose: 3 units Documented by: [id number] Cosigned by: [id number] Admin: 03/11/22 13:19 Dose: 2 units Documented by: [id number] Cosigned by: [id number] Admin: 03/11/22 08:03 Dose: Not Given Documented by: [id number] Admin: 03/10/22 20:44 Dose: Not Given Documented by: [id number] Admin: 03/10/22 18:02 Dose: 2 units Documented by: [id number] Cosigned by: [id number] Admin: 03/10/22 13:11 Dose: 2 units Documented by: [id number] Cosigned by: [id number] Admin: 03/10/22 10:03 Dose: 2 units Documented by: [id number] Cosigned by: [id number] Admin: 03/09/22 21:21 Dose: 4 units Documented by: [id number] Cosigned by: [id number] Admin: 03/09/22 18:20 Dose: 3 units Documented by: [id number] Cosigned by: [id number] Admin: 03/09/22 14:14 Dose: Not Given Documented by: [id number] Admin: 03/09/22 09:58 Dose: 2 units Documented by: [id number] Cosigned by: [id number] Admin: 03/08/22 20:31 Dose: 1 units Documented by: [id number] Cosigned by: [id number] Admin: 03/08/22 17:12 Dose: Not Given Documented by: [id number] Admin: 03/08/22 12:30 Dose: 1 units Documented by: [id number] Cosigned by: [id number] Admin: 03/08/22 08:17 Dose: Not Given Documented by: [id number] Admin: 03/07/22 21:25 Dose: 1 units Documented by: [id number] Cosigned by: [id number] Admin: 03/07/22 17:11 Dose: 1 units Documented by: [id number] Cosigned by: [id number] Admin: 03/07/22 11:53 Dose: 2 units Documented by: [id number] Cosigned by: [id number] Admin: 03/07/22 08:02 Dose: 2 units Documented by: [id number] Cosigned by: [id number] Admin: 03/06/22 20:32 Dose: Not Given Documented by: [id number] Cosigned by: [id number] Admin: 03/06/22 17:14 Dose: 2 units Documented by: [id number] Cosigned by: [id number] Admin: 03/06/22 12:12 Dose: 2 units Documented by: [id number] Cosigned by: [id number] Admin: 03/06/22 08:07 Dose: Not Given Documented by: [id number] Admin: 03/05/22 21:53 Dose: 1 units Documented by: [id number] Cosigned by: [id number] Admin: 03/05/22 17:05 Dose: 2 units Documented by: [id number] Cosigned by: [id number] Admin: 03/05/22 12:41 Dose: 3 units Documented by: [id number] Cosigned by: [id number] Admin: 03/05/22 08:44 Dose: Not Given Documented by: [id number] Admin: 03/04/22 22:13 Dose: Not Given Documented by: [id number] Cosigned by: [id number] Admin: 03/04/22 17:24 Dose: 2 units Documented by: [id number] Cosigned by: [id number] Admin: 03/04/22 12:09 Dose: 2 units Documented by: [id number] Cosigned by: [id number] Admin: 03/04/22 08:20 Dose: Not Given Documented by: [id number] Admin: 03/03/22 20:31 Dose: Not Given Documented by: [id number] Admin: 03/03/22 17:26 Dose: Not Given Documented by: [id number] Admin: 03/03/22 12:22 Dose: 3 units Documented by: [id number] Cosigned by: [id number] Admin: 03/03/22 08:34 Dose: Not Given Documented by: [id number] Admin: 03/02/22 21:14 Dose: Not Given Documented by: [id number] Cosigned by: [id number] Admin: 03/02/22 16:56 Dose: Not Given Documented by: [id number] Admin: 03/02/22 12:17 Dose: 4 units Documented by: [id number] Cosigned by: [id number] Admin: 03/02/22 08:27 Dose: Not Given Documented by: [id number] Admin: 03/01/22 20:51 Dose: Not Given Documented by: [id number] Admin: 03/01/22 16:50 Dose: 4 units Documented by: [id number] Cosigned by: [id number] Admin: 03/01/22 11:42 Dose: 2 units Documented by: [id number] Cosigned by: [id number] Admin: 03/01/22 07:51 Dose: Not Given Documented by: [id number] Admin: 02/28/22 23:10 Dose: Not Given Documented by: [id number] Metoprolol Succinate (Metoprolol Succ 25mg Ext Rel Tab) 12.5 mg PO DAILY@1530 [facility] Stop: 03/31/22 15:29 Last Admin: 03/16/22 16:11 Dose: 12.5 mg Documented by: [id number] Admin: 03/15/22 15:39 Dose: 12.5 mg Documented by: [id number] Admin: 03/14/22 15:49 Dose: 12.5 mg Documented by: [id number] Admin: 03/13/22 16:11 Dose: 12.5 mg Documented by: [id number] Admin: 03/12/22 15:45 Dose: 12.5 mg Documented by: [id number] Admin: 03/11/22 15:09 Dose: 12.5 mg Documented by: [id number] Admin: 03/10/22 16:29 Dose: 12.5 mg Documented by: [id number] Admin: 03/09/22 15:09 Dose: 12.5 mg Documented by: [id number] Admin: 03/08/22 15:29 Dose: 12.5 mg Documented by: [id number] Admin: 03/07/22 16:49 Dose: 12.5 mg Documented by: [id number] Admin: 03/06/22 15:19 Dose: 12.5 mg Documented by: [id number] Admin: 03/05/22 16:07 Dose: 12.5 mg Documented by: [id number] Admin: 03/04/22 17:20 Dose: 12.5 mg Documented by: [id number] Admin: 03/03/22 17:14 Dose: 12.5 mg Documented by: [id number] Admin: 03/02/22 14:32 Dose: 12.5 mg Documented by: [id number] Admin: 03/01/22 16:11 Dose: 12.5 mg Documented by: [id number] Ondansetron HCl (Ondansetron Inj 2 Mg/Ml 2 Ml Vial) 4 mg IV Q6H PRN PRN Reason: Nausea And Vomiting Stop: 04/15/22 21:13 Last Admin: 03/16/22 21:22 Dose: 4 mg Documented by: [id number] Pantoprazole Sodium (Pantoprazole 40 Mg Tab) [facility] Protocol Stop: 03/31/22 06:29 Last Admin: 03/17/22 05:40 Dose: 40 mg Documented by: [id number] Admin: 03/16/22 05:44 Dose: 40 mg Documented by: [id number] Admin: 03/15/22 05:39 Dose: 40 mg Documented by: [id number] Admin: 03/14/22 06:23 Dose: 40 mg Documented by: [id number] Admin: 03/13/22 06:15 Dose: 40 mg Documented by: [id number] Admin: 03/12/22 05:45 Dose: 40 mg Documented by: [id number] Admin: 03/11/22 05:31 Dose: 40 mg Documented by: [id number] Admin: 03/10/22 09:59 Dose: 40 mg Documented by: [id number] Admin: 03/09/22 05:40 Dose: 40 mg Documented by: [id number] Admin: 03/08/22 05:57 Dose: 40 mg Documented by: [id number] Admin: 03/07/22 07:31 Dose: 40 mg Documented by: [id number] Admin: 03/06/22 06:33 Dose: 40 mg Documented by: [id number] Admin: 03/05/22 05:57 Dose: 40 mg Documented by: [id number] Admin: 03/04/22 06:03 Dose: 40 mg Documented by: [id number] Admin: 03/03/22 05:50 Dose: Not Given Documented by: [id number] Admin: 03/02/22 05:53 Dose: Not Given Documented by: [id number] Admin: 03/01/22 06:07 Dose: 40 mg Documented by: [id number] Rifaximin (Rifaximin 550 Mg Tablet) 550 mg PO [facility] Stop: 03/30/22 20:59 Last Admin: 03/17/22 09:30 Dose: 550 mg Documented by: [id number] Admin: 03/16/22 20:40 Dose: 550 mg Documented by: [id number] Admin: 03/16/22 08:57 Dose: 550 mg Documented by: [id number] Admin: 03/15/22 20:11 Dose: 550 mg Documented by: [id number] Admin: 03/15/22 11:11 Dose: 550 mg Documented by: [id number] Admin: 03/14/22 19:54 Dose: 550 mg Documented by: [id number] Admin: 03/14/22 09:06 Dose: 550 mg Documented by: [id number] Admin: 03/13/22 22:20 Dose: 550 mg Documented by: [id number] Admin: 03/13/22 07:58 Dose: 550 mg Documented by: [id number] Admin: 03/12/22 20:38 Dose: 550 mg Documented by: [id number] Admin: 03/12/22 08:01 Dose: 550 mg Documented by: [id number] Admin: 03/11/22 21:00 Dose: 550 mg Documented by: [id number] Admin: 03/11/22 08:02 Dose: 550 mg Documented by: [id number] Admin: 03/10/22 20:50 Dose: 550 mg Documented by: [id number] Admin: 03/10/22 09:59 Dose: 550 mg Documented by: [id number] Admin: 03/09/22 21:11 Dose: 550 mg Documented by: [id number] Admin: 03/09/22 10:00 Dose: 550 mg Documented by: [id number] Admin: 03/08/22 20:23 Dose: 550 mg Documented by: [id number] Admin: 03/08/22 08:20 Dose: 550 mg Documented by: [id number] Admin: 03/07/22 20:47 Dose: 550 mg Documented by: [id number] Admin: 03/07/22 07:32 Dose: 550 mg Documented by: [id number] Admin: 03/06/22 20:33 Dose: 550 mg Documented by: [id number] Admin: 03/06/22 08:11 Dose: 550 mg Documented by: [id number] Cosigned by: [id number] Admin: 03/05/22 21:52 Dose: 550 mg Documented by: [id number] Admin: 03/05/22 07:34 Dose: 550 mg Documented by: [id number] Admin: 03/04/22 21:55 Dose: 550 mg Documented by: [id number] Admin: 03/04/22 09:17 Dose: 550 mg Documented by: [id number] Admin: 03/03/22 21:55 Dose: 550 mg Documented by: [id number] Admin: 03/03/22 08:37 Dose: 550 mg Documented by: [id number] Admin: 03/02/22 21:15 Dose: Not Given Documented by: [id number] Admin: 03/02/22 08:29 Dose: 550 mg Documented by: [id number] Admin: 03/01/22 21:41 Dose: Not Given Documented by: [id number] Admin: 03/01/22 07:54 Dose: 550 mg Documented by: [id number] Admin: 02/28/22 23:08 Dose: 550 mg Documented by: [id number] Sodium Chloride (Sodium Chloride 1 Gm Tablet) 1 gm PO TID RAFY Stop: 04/15/22 08:59 Last Admin: 03/17/22 09:30 Dose: 1 gm Documented by: [id number] Admin: 03/16/22 20:40 Dose: 1 gm Documented by: [id number] Admin: 03/16/22 13:26 Dose: 1 gm Documented by: [id number] Admin: 03/16/22 10:49 Dose: 1 gm Documented by: [id number] Urea (Urea (Urea-Na) 15 Gm Pack) 15 gm PO DAILY [facility] Stop: 04/15/22 08:59 Last Admin: 03/17/22 09:30 Dose: 15 gm Documented by: [id number] Admin: 03/16/22 09:36 Dose: 15 gm Documented by: [id number] Coding Level of Care Code None
[2022-03-17] MEDS: METOPROLOL SUCC 25MG EXT REL TAB PO SCH (16:12)
--- NOTE | 2022-03-17 17:04 | Hospitalist Progress Note ---
Date of Service March 17, 2022 Assessment & Plan (1) Volume overload: (2) Combined systolic and diastolic congestive heart failure: (3) Valvular heart disease: (4) HINKLE (nonalcoholic steatohepatitis): Plan: per Dr. Chung's notes with addendum: Patient is a 71 yr female who presented by referral PCPs office for evaluation of shortness of breath, worsening abdominal distention Volume overload Acute on chronic systolic diastolic heart failure Likely multifactorial due to chronic systolic and diastolic CHF, valvular heart disease, HINKLE --CT ABD/pelvis showing small bilateral pleural effusions, small amount of ascites, evidence of anasarca --BNP 2529 --Troponin 41>42>48 --ECHO: Left ventricle is moderately dilated. EF 30 to 35%. Right ventricle systolic function is normal. Left atrium is moderately dilated. Moderate valvular aortic stenosis. Moderate to severe mitral annular calcification, severe mitral regurgitation and moderate mitral stenosis. Mild to moderate tricuspid regurgitation. Estimated pulmonary artery pressure 55 mmHg. --Monitor I's and O's, daily weight Appreciate cardiology, nephrology input Low-sodium diet, fluid restriction Weaned off of supplemental oxygen Not on JUAN JOSE/ARB detailed home blood pressure in the past. Likely would not tolerate Entresto Chest x-ray today showed persistent pulmonary edema Hold spironolactone for now IV diuretics transition to lasix PO 40 mg twice daily---Currently held due to low sodium levels Need to resume diuretics as able Monitor BMP 03/17 euvolemic to dry Lasix on hold for low Na Hyponatremia likely due to hypervolemia, diuretics Fluid restriction Monitor sodium levels Sodium 128 today Continue Urea--May need it upon discharge as well 03/17 Na still at 125 urea changed to once a day Salt tab TID discussed with nephmoshe HINKLE Continue rifaximin Spironolactone on hold (5) Leg wound, right: Plan: Right anterior swan wound in the setting of severe PVD Venous Doppler shows greater saphenous vein graft that appears patent Continue Wound care Completed Doxycycline Course 03/17 healing well (6) PAD (peripheral artery disease): (7) CAD (coronary artery disease): (8) Elevated troponin: Plan: Troponin 41>42>48 No reports of chest pain Continue ASA, statin, beta-alma (9) Diarrhea: Plan: Seems to be a chronic issue C. difficile and stool PCR negative (10) COPD (chronic obstructive pulmonary disease): Plan: No signs of acute exacerbation (11) CKD (chronic kidney disease), stage III: Plan: Baseline creatinine mid 1's Creatinine 1.3>1.5 Diuretics held now (12) Diabetes mellitus type 2, diet-controlled: Plan: Hgb A1c 6.9 10/2021, A1c today 03/01/22 6.6 (13) Bladder cancer: Plan: History Had screening cystoscopy on 02/27/22 that showed recurrence of cancer Patient scheduled for TURBT in March (14) DVT prophylaxis: Plan: SQ heparin Admission and Anticipated Discharge Date Admission Date: February 28, 2022 Subjective ff up for acute CHF, etc seen resting in bed, comfortable states she feels better overall no chest pain, dyspnea, palpitations, dizziness no leg pain no fever/chills no other symptoms Review of Systems Review of Systems: all noted and negative except for above Physical Exam Physical Exam: General- oriented x 3, not in distress, speaks in sentences with no effort or accessory muscle use Eyes- anicteric Neck- no JVD Lungs- clear breath sounds bilaterally, no rales/wheezes Heart- normal rate, regular rhythm; no murmurs Abdomen- normal bowel sounds, nondistended, soft, nontender Extremities- no pretibial edema, no calf tenderness RLE: mild erythema- no warmth, tenderness- chronic as per patient Neuro- alert, oriented x 3; no gross focal neurologic deficits Skin- warm & dry Results & Data Results & Data ([facility]) Vital Signs (Past 12 Hours) Vital Signs Temp Pulse Pulse Resp BP BP Pulse Ox 03/17/22 15:46 74 03/17/22 14:00 36.8 C 95 H 20 109/68 98 03/17/22 10:59 36.8 C 72 20 109/59 L 94 03/17/22 08:06 65 03/17/22 07:00 36.8 C 63 18 105/61 98 all noted and reviewed including below
[2022-03-17] MEDS: ATORVASTATIN 40 MG TAB PO SCH (21:00)
[2022-03-18] MEDS: HEPARIN SOD 5,000 UNIT/0.5 ML VIAL SQ SCH ×3 (05:40→21:05)
[2022-03-18] MEDS: PANTOprazole 40 MG TAB PO SCH (05:41)
[2022-03-18 07:47] LABS: Calcium 9.1 mg/dl (8.5-10.1); Creatinine Clr Calc Pharmacy 38.4 ml/min; Est GFR (African American) 52.7 ml/min; Est GFR (Non-African American) 45.4 ml/min; Potassium 4.8 mmol/L (3.5-5.1)
[2022-03-18] MEDS: INSULIN ASPART PER UNIT SC SCH ×4 (09:41→20:27)
[2022-03-18] MEDS: UREA (UREA-NA) 15 GM PACK PO SCH (09:48)
[2022-03-18] MEDS: allopurinoL 300 MG TAB PO SCH (09:49)
[2022-03-18] MEDS: ASPIRIN 81 MG ECTAB PO SCH (09:49)
[2022-03-18] MEDS: rifAXIMin 550 MG TABLET PO SCH ×2 (09:50→20:27)
[2022-03-18] MEDS: FOLIC ACID 1 MG TAB PO SCH (09:50)
[2022-03-18] MEDS: GABAPENTIN 800 MG TAB PO SCH ×3 (09:50→20:27)
[2022-03-18] MEDS: SODIUM CHLORIDE 1 GM TABLET PO SCH ×2 (09:50→20:27)
[2022-03-18] MEDS: FERROUS GLUCONATE 324 MG TAB PO SCH ×2 (09:50→20:27)
--- NOTE | 2022-03-18 11:09 | Nephrology Progress Note ---
Date of Service March 18, 2022 Assessment & Plan Admission and Anticipated Discharge Date Admission Date: February 28, 2022 Subjective Assessment & Plan (1) Hyponatremia: Plan: very fluctuating serum sodium. Most consistent at this point w/ Mutlifactorial hyponatremia.But did have Hypervolemic Hyponatremia in the begining and now euvolemic but also low solute diet. on urea since 03/07, continue fluid limit; has had no lasix since 03/07 PM > prior to that had bid 40 mg IV 03/01-03/04 and tid 03/04-03/07 in addition to several other doses; spironolactone was given 03/01-03/06. admitted 03/01 with sNa 130 and with slow drift down to 124 as recently as 03/09. Osms serum on 03/09 PM w/ sNa 125 were 302, w/ urine osm 355 and Phylicia 32 at admission; serum osms 306 on repeat. Sodium 125 today. -Will continue urea 15 g daily Celexa stopped from 03/18 -encourage protein intake. She did not eat anything solid with her breakfast --lower salt tab to 1 gm bid. (2) CKD (chronic kidney disease), stage III: Plan: She is know to be non protenuric CKD 3b with baseline Scr 1.4 --1.6 > at baseline Her renal functions are at baseline or better Diuretics on hold - Avoid nephrotoxins (3) Combined systolic and diastolic congestive heart failure: Plan: As above. >>cardiology ok with diuretics prn fluid mgt/ not necessarily strong/imperative for standing diuretics from cardiac standpoint Daily weights, strict I's and O's, low Na+ diet, 2 L fluid restriction -Echo 09/2020-EF 40 to 45%, grade 2 diastolic dysfunction, moderate aortic stenosis, mild aortic regurgitation, mild mitral stenosis, severe mitral regurgitation Repeat TTE show EF of 30-35%, LV is moderately dilated, severe MR, mod MS, LA m od dilated - Cardiology on board, not a candidate for MVR (4) Bladder cancer: Plan: screening cysto 02/27 w/ bladder CA recurrence; for TURBT in March Subjective Seen in f/u for hyponatremia. She feels weak . making urine. na up trending Review of Systems Review of Systems: All other systems were reviewed and negative except as noted in HPI Physical Exam Physical Exam: General exam: Appears comfortable, no acute distress HEENT: Pupils are equal and reactive to light Neck: No JVD, neck is supple trachea is midline Respiratory system: Clear breath sounds bilaterally. Gastrointestinal: Abdomen is soft, non distended, non tender, bowel sounds are present CVS: Regular rate and rhythm. No murmurs, rubs or gallops Musculoskeletal: No joint or muscle tenderness Extremities: Non tender, no edema, peripheral pulses are present. left BKA Neuro: Oriented, no tremors, no focal neurological deficits Skin: No rashes Results & Data ([facility]) Vital Signs (Past 12 Hours) Vital Signs Temp Pulse Pulse Resp BP Pulse Ox 03/18/22 08:16 36.6 C 70 18 116/69 95 03/18/22 07:45 72 03/18/22 04:00 36.8 C 75 20 119/71 95
--- NOTE | 2022-03-18 17:33 | Hospitalist Progress Note ---
Date of Service March 18, 2022 delayed entry date of service noted above Assessment & Plan (1) Volume overload: (2) Combined systolic and diastolic congestive heart failure: (3) Valvular heart disease: (4) HINKLE (nonalcoholic steatohepatitis): Plan: per Dr. Chung's notes with addendum: Patient is a 71 yr female who presented by referral PCPs office for evaluation of shortness of breath, worsening abdominal distention Volume overload Acute on chronic systolic diastolic heart failure Likely multifactorial due to chronic systolic and diastolic CHF, valvular heart disease, HINKLE --CT ABD/pelvis showing small bilateral pleural effusions, small amount of ascites, evidence of anasarca --BNP 2529 --Troponin 41>42>48 --ECHO: Left ventricle is moderately dilated. EF 30 to 35%. Right ventricle systolic function is normal. Left atrium is moderately dilated. Moderate valvular aortic stenosis. Moderate to severe mitral annular calcification, severe mitral regurgitation and moderate mitral stenosis. Mild to moderate tricuspid regurgitation. Estimated pulmonary artery pressure 55 mmHg. --Monitor I's and O's, daily weight Appreciate cardiology, nephrology input Low-sodium diet, fluid restriction Weaned off of supplemental oxygen Not on JUAN JOSE/ARB detailed home blood pressure in the past. Likely would not tolerate Entresto Chest x-ray today showed persistent pulmonary edema Hold spironolactone for now IV diuretics transition to lasix PO 40 mg twice daily---Currently held due to low sodium levels Need to resume diuretics as able Monitor BMP 5/2 euvolemic to dry Lasix on hold for low Na Hyponatremia likely due to hypervolemia, diuretics Fluid restriction Monitor sodium levels Sodium 128 today Continue Urea--May need it upon discharge as well 5/2 Na still at 129 urea changed to once a day Salt tab BID discussed with nephmoshe HINKLE Continue rifaximin Spironolactone on hold (5) Leg wound, right: Plan: Right anterior swan wound in the setting of severe PVD Venous Doppler shows greater saphenous vein graft that appears patent Continue Wound care Completed Doxycycline Course 5/2 healing well (6) PAD (peripheral artery disease): (7) CAD (coronary artery disease): (8) Elevated troponin: Plan: Troponin 41>42>48 No reports of chest pain Continue ASA, statin, beta-alma (9) Diarrhea: Plan: Seems to be a chronic issue C. difficile and stool PCR negative (10) COPD (chronic obstructive pulmonary disease): Plan: No signs of acute exacerbation (11) CKD (chronic kidney disease), stage III: Plan: Baseline creatinine mid 1's Creatinine 1.3>1.5 Diuretics held now (12) Diabetes mellitus type 2, diet-controlled: Plan: Hgb A1c 6.9 10/2021, A1c today 03/01/22 6.6 (13) Bladder cancer: Plan: History Had screening cystoscopy on 02/27/22 that showed recurrence of cancer Patient scheduled for TURBT in March (14) DVT prophylaxis: Plan: SQ heparin Admission and Anticipated Discharge Date Admission Date: February 28, 2022 Subjective ff up for hyponatremia, etc seen resting in bed, comfortable smiling states she feels fine overall no chest pain, dyspnea, palpitations, dizziness no new symptoms Review of Systems Review of Systems: all noted and negative except for above Physical Exam Physical Exam: General- oriented x 3, not in distress, speaks in sentences with no effort or accessory muscle use Eyes- anicteric Neck- no JVD Lungs- clear breath sounds BL Heart- normal rate, regular rhythm; no murmurs Abdomen- normal bowel sounds, nondistended, soft, nontender Extremities- no pretibial edema, no calf tenderness Neuro- alert, oriented x 3; no gross focal neurologic deficits Skin- warm & dry Results & Data Results & Data ([facility]) Vital Signs (Past 12 Hours) Vital Signs Temp Pulse Pulse Resp BP Pulse Ox 03/18/22 16:00 73 03/18/22 15:11 36.6 C 72 20 114/74 90 03/18/22 11:49 36.8 C 78 18 112/70 90 03/18/22 08:16 36.6 C 70 18 116/69 95 03/18/22 07:45 72 all noted and reviewed including below
[2022-03-18] MEDS: METOPROLOL SUCC 25MG EXT REL TAB PO SCH (17:49)
[2022-03-18] MEDS: ATORVASTATIN 40 MG TAB PO SCH (20:27)
[2022-03-19] MEDS: PANTOprazole 40 MG TAB PO SCH (05:30)
[2022-03-19] MEDS: HEPARIN SOD 5,000 UNIT/0.5 ML VIAL SQ SCH ×3 (05:31→21:35)
[2022-03-19] MEDS: INSULIN ASPART PER UNIT SC SCH ×4 (08:26→21:35)
[2022-03-19] MEDS: UREA (UREA-NA) 15 GM PACK PO SCH (08:28)
[2022-03-19] MEDS: GABAPENTIN 800 MG TAB PO SCH ×3 (08:29→21:32)
[2022-03-19] MEDS: rifAXIMin 550 MG TABLET PO SCH ×2 (08:29→21:32)
[2022-03-19] MEDS: SODIUM CHLORIDE 1 GM TABLET PO SCH (08:29)
[2022-03-19] MEDS: FERROUS GLUCONATE 324 MG TAB PO SCH ×2 (08:30→21:32)
[2022-03-19] MEDS: FOLIC ACID 1 MG TAB PO SCH (08:30)
[2022-03-19] MEDS: ASPIRIN 81 MG ECTAB PO SCH (08:30)
[2022-03-19] MEDS: allopurinoL 300 MG TAB PO SCH (08:30)
[2022-03-19 08:59] LABS: Calcium 9.2 mg/dl (8.5-10.1); Creatinine Clr Calc Pharmacy 36.9 ml/min; Est GFR (African American) 50.1 ml/min; Est GFR (Non-African American) 43.2 ml/min; Potassium 4.8 mmol/L (3.5-5.1)
--- NOTE | 2022-03-19 09:16 | Nephrology Progress Note ---
Date of Service March 19, 2022 Assessment & Plan Admission and Anticipated Discharge Date Admission Date: February 28, 2022 Subjective Assessment & Plan (1) Hyponatremia: Plan: very fluctuating serum sodium. Most consistent at this point w/ Multifactorial hyponatremia.But did have Hypervolemic Hyponatremia in the beginning and now euvolemic but also low solute diet. on urea since 03/07, continue fluid limit; has had no lasix since 03/07 PM > prior to that had bid 40 mg IV 03/01-03/04 and tid 03/04-03/07 in addition to several other doses; spironolactone was given 03/01-03/06. admitted 03/01 with sNa 130 and with slow drift down to 124 as recently as 03/09. Osm serum on 03/09 PM w/ sNa 125 were 302, w/ urine osm 355 and Phylicia 32 at admission; serum osms 306 on repeat. Sodium 129 today. -With BUN 115 and not dropping i dont want to use urea anymore. --Celexa stopped from 03/18( i personally dont think it has anything to do with low Na+) -encourage protein intake. She did not eat anything solid with her breakfast--na cannot go up unless she eats more solid food. --lower salt tab to 1 gm daily. As long as Na remains 125 + stable She may be able to be discharged Fluid restriction (2) CKD (chronic kidney disease), stage III: Plan: She is know to be non proteinuric CKD 3b with baseline Scr 1.4 --1.6 > at baseline Her renal functions are at baseline or better Diuretics on hold - Avoid nephrotoxins (3) Combined systolic and diastolic congestive heart failure: Plan: As above. >>cardiology ok with diuretics prn fluid mgt/ not necessarily strong/imperative for standing diuretics from cardiac standpoint Daily weights, strict I's and O's, low Na+ diet, 2 L fluid restriction -Echo 09/2020-EF 40 to 45%, grade 2 diastolic dysfunction, moderate aortic stenosis, mild aortic regurgitation, mild mitral stenosis, severe mitral regurgitation Repeat TTE show EF of 30-35%, LV is moderately dilated, severe MR, mod MS, LA mod dilated - Cardiology on board, not a candidate for MVR (4) Bladder cancer: Plan: screening cysto 02/27 w/ bladder CA recurrence; for TURBT in March Subjective Seen in f/u for hyponatremia. She feels weak . making urine. na up trending Review of Systems Review of Systems: All other systems were reviewed and negative except as noted in HPI Physical Exam Physical Exam: General exam: Appears comfortable, no acute distress HEENT: Pupils are equal and reactive to light Neck: No JVD, neck is supple trachea is midline Respiratory system: Clear breath sounds bilaterally. Gastrointestinal: Abdomen is soft, non distended, non tender, bowel sounds are present CVS: Regular rate and rhythm. No murmurs, rubs or gallops Musculoskeletal: No joint or muscle tenderness Extremities: Non tender, no edema, peripheral pulses are present. left BKA Neuro: Oriented, no tremors, no focal neurological deficits Skin: No rashes Results & Data ([facility]) Vital Signs (Past 12 Hours) Vital Signs Temp Pulse Pulse Resp BP Pulse Ox 03/19/22 07:30 80 03/19/22 07:00 36.5 C 75 19 123/72 96 03/19/22 03:23 36.2 C L 77 18 123/78 97 03/18/22 22:54 36.2 C L 79 18 117/74 92 03/18/22 22:17 78
--- NOTE | 2022-03-19 16:43 | Hospitalist Progress Note ---
Date of Service March 19, 2022 Assessment & Plan (1) Volume overload: (2) Combined systolic and diastolic congestive heart failure: (3) Valvular heart disease: (4) HINKLE (nonalcoholic steatohepatitis): Plan: per Dr. Chung's notes with addendum: Patient is a 71 yr female who presented by referral PCPs office for evaluation of shortness of breath, worsening abdominal distention Volume overload Acute on chronic systolic diastolic heart failure Likely multifactorial due to chronic systolic and diastolic CHF, valvular heart disease, HINKLE --CT ABD/pelvis showing small bilateral pleural effusions, small amount of ascites, evidence of anasarca --BNP 2529 --Troponin 41>42>48 --ECHO: Left ventricle is moderately dilated. EF 30 to 35%. Right ventricle systolic function is normal. Left atrium is moderately dilated. Moderate valvular aortic stenosis. Moderate to severe mitral annular calcification, severe mitral regurgitation and moderate mitral stenosis. Mild to moderate tricuspid regurgitation. Estimated pulmonary artery pressure 55 mmHg. --Monitor I's and O's, daily weight Appreciate cardiology, nephrology input Low-sodium diet, fluid restriction Weaned off of supplemental oxygen Not on JUAN JOSE/ARB detailed home blood pressure in the past. Likely would not tolerate Entresto Chest x-ray today showed persistent pulmonary edema Hold spironolactone for now IV diuretics transition to lasix PO 40 mg twice daily---Currently held due to low sodium levels Need to resume diuretics as able Monitor BMP 5/3 euvolemic to dry Lasix on hold for low Na Hyponatremia likely due to hypervolemia, diuretics Fluid restriction Monitor sodium levels Sodium 128 today Continue Urea--May need it upon discharge as well 5/3 Na improved from 123 to 129 urea changed to once a day Salt tab changed to daily discussed with nephmoshe HINKLE Continue rifaximin Spironolactone on hold (5) Leg wound, right: Plan: Right anterior swan wound in the setting of severe PVD Venous Doppler shows greater saphenous vein graft that appears patent Continue Wound care Completed Doxycycline Course 5/3 healing well (6) PAD (peripheral artery disease): (7) CAD (coronary artery disease): (8) Elevated troponin: Plan: Troponin 41>42>48 No reports of chest pain Continue ASA, statin, beta-alma (9) Diarrhea: Plan: Seems to be a chronic issue C. difficile and stool PCR negative (10) COPD (chronic obstructive pulmonary disease): Plan: No signs of acute exacerbation (11) CKD (chronic kidney disease), stage III: Plan: Baseline creatinine mid 1's Creatinine 1.3>1.5 Diuretics held now (12) Diabetes mellitus type 2, diet-controlled: Plan: Hgb A1c 6.9 10/2021, A1c today 03/01/22 6.6 (13) Bladder cancer: Plan: History Had screening cystoscopy on 02/27/22 that showed recurrence of cancer Patient scheduled for TURBT in March (14) DVT prophylaxis: Plan: SQ heparin Admission and Anticipated Discharge Date Admission Date: February 28, 2022 Subjective ff up for hyponatremia, CHF, etc seen resting in bed, comfortable states she feels fine overall no chest pain, dyspnea, palpitations, dizziness no pain no other symptoms Review of Systems Review of Systems: all noted and negative except for above Physical Exam Physical Exam: General- oriented x 2, not in distress, speaks in sentences with no effort or accessory muscle use Eyes- anicteric Neck- no JVD Lungs- clear breath sounds bilaterally, no crackles Heart- normal rate, regular rhythm; no murmurs Abdomen- normal bowel sounds, nondistended, soft, nontender Extremities- no pretibial edema, no calf tenderness Neuro- alert, oriented x 3; no gross focal neurologic deficits Skin- warm & dry Results & Data Results & Data ([facility]) Vital Signs (Past 12 Hours) Vital Signs Temp Pulse Pulse Resp BP Pulse Ox 03/19/22 15:00 36.9 C 52 L 19 116/56 L 97 03/19/22 14:52 74 03/19/22 11:00 36.4 C L 76 19 118/71 96 03/19/22 07:30 80 03/19/22 07:00 36.5 C 75 19 123/72 96 all noted and reviewed including below
[2022-03-19] MEDS: METOPROLOL SUCC 25MG EXT REL TAB PO SCH (16:56)
[2022-03-19] MEDS: ATORVASTATIN 40 MG TAB PO SCH (21:34)
[2022-03-20] MEDS: PANTOprazole 40 MG TAB PO SCH (05:58)
[2022-03-20] MEDS: HEPARIN SOD 5,000 UNIT/0.5 ML VIAL SQ SCH ×3 (05:58→21:03)
[2022-03-20 07:50] LABS: Est GFR (African American) 48.7 ml/min; Potassium 4.8 mmol/L (3.5-5.1)
[2022-03-20] MEDS: INSULIN ASPART PER UNIT SC SCH ×4 (08:26→20:59)
[2022-03-20] MEDS: rifAXIMin 550 MG TABLET PO SCH ×2 (08:27→19:45)
[2022-03-20] MEDS: FOLIC ACID 1 MG TAB PO SCH (08:27)
[2022-03-20] MEDS: GABAPENTIN 800 MG TAB PO SCH ×3 (08:27→19:45)
[2022-03-20] MEDS: FERROUS GLUCONATE 324 MG TAB PO SCH ×2 (08:27→19:44)
[2022-03-20] MEDS: allopurinoL 300 MG TAB PO SCH (08:27)
[2022-03-20] MEDS: ASPIRIN 81 MG ECTAB PO SCH (08:28)
[2022-03-20] MEDS ORDERED: SODIUM CHLORIDE 1 GM TABLET PO SCH (09:00)
--- NOTE | 2022-03-20 09:05 | Nephrology Progress Note ---
Date of Service March 20, 2022 Assessment & Plan Admission and Anticipated Discharge Date Admission Date: February 28, 2022 Subjective Assessment & Plan (1) Hyponatremia: Plan: very fluctuating serum sodium. Most consistent at this point w/ Multifactorial hyponatremia.But did have Hypervolemic Hyponatremia in the beginning and now euvolemic but also low solute diet. on urea since 03/07, continue fluid limit; has had no lasix since 03/07 PM > prior to that had bid 40 mg IV 03/01-03/04 and tid 03/04-03/07 in addition to several other doses; spironolactone was given 03/01-03/06. admitted 03/01 with sNa 130 and with slow drift down to 124 as recently as 03/09. Osm serum on 03/09 PM w/ sNa 125 were 302, w/ urine osm 355 and Phylicia 32 at admission; serum osms 306 on repeat. Sodium 126 today so did drop. -Na dropped as soon as we lowered the Salt tab and Urea. --Celexa stopped from 03/18( i personally dont think it has anything to do with low Na+) -encourage protein intake. She did not eat anything solid with her breakfast--na cannot go up unless she eats more solid food. Restart Urea 15 gm. continue Salt tab 1 bid As long as Na remains 125 + stable She may be able to be discharged Fluid restriction 1200 Add Protein bars/Gummies to raise the Osmolar load (2) CKD (chronic kidney disease), stage III: Plan: She is know to be non proteinuric CKD 3b with baseline Scr 1.4 --1.6 > at baseline Her renal functions are at baseline or better Diuretics on hold - Avoid nephrotoxins (3) Combined systolic and diastolic congestive heart failure: Plan: As above. >>cardiology ok with diuretics prn fluid mgt/ not necessarily strong/imperative for standing diuretics from cardiac standpoint Daily weights, strict I's and O's, low Na+ diet, 2 L fluid restriction -Echo 09/2020-EF 40 to 45%, grade 2 diastolic dysfunction, moderate aortic stenosis, mild aortic regurgitation, mild mitral stenosis, severe mitral regurgitation Repeat TTE show EF of 30-35%, LV is moderately dilated, severe MR, mod MS, LA mod dilated - Cardiology on board, not a candidate for MVR (4) Bladder cancer: Plan: screening cysto 02/27 w/ bladder CA recurrence; for TURBT in March Subjective Seen in f/u for hyponatremia. She feels weak . making urine. na up trending Review of Systems Review of Systems: All other systems were reviewed and negative except as noted in HPI Physical Exam Physical Exam: General exam: Appears comfortable, no acute distress HEENT: Pupils are equal and reactive to light Neck: No JVD, neck is supple trachea is midline Respiratory system: Clear breath sounds bilaterally. Gastrointestinal: Abdomen is soft, non distended, non tender, bowel sounds are present CVS: Regular rate and rhythm. No murmurs, rubs or gallops Musculoskeletal: No joint or muscle tenderness Extremities: Non tender, no edema, peripheral pulses are present. left BKA Neuro: Oriented, no tremors, no focal neurological deficits Skin: No rashes Results & Data ([facility]) Vital Signs (Past 12 Hours) Vital Signs Temp Pulse Pulse Pulse Resp BP Pulse Ox 03/20/22 08:00 36.9 C 79 18 122/76 94 03/20/22 07:11 77 03/20/22 03:16 36.8 C 80 18 114/67 95 03/19/22 23:30 76 03/19/22 23:04 36.3 C L 76 18 113/74 97
[2022-03-20] MEDS: METOPROLOL SUCC 25MG EXT REL TAB PO SCH (16:53)
--- NOTE | 2022-03-20 18:08 | Hospitalist Progress Note ---
Date of Service March 20, 2022 Assessment & Plan (1) Volume overload: (2) Combined systolic and diastolic congestive heart failure: (3) Valvular heart disease: (4) HINKLE (nonalcoholic steatohepatitis): Plan: Patient is a 71 yr female who presented by referral PCPs office for evaluation of shortness of breath, worsening abdominal distention Volume overload Acute on chronic systolic diastolic heart failure Likely multifactorial due to chronic systolic and diastolic CHF, valvular heart disease, HINKLE Severe Mitral Regurgitation --CT ABD/pelvis showing small bilateral pleural effusions, small amount of ascites, evidence of anasarca --BNP 2529 --Troponin 41>42>48 --ECHO: Left ventricle is moderately dilated. EF 30 to 35%. Right ventricle systolic function is normal. Left atrium is moderately dilated. Moderate valvular aortic stenosis. Moderate to severe mitral annular calcification, severe mitral regurgitation and moderate mitral stenosis. Mild to moderate tricuspid regurgitation. Estimated pulmonary artery pressure 55 mmHg. --Monitor I's and O's, daily weight Appreciate cardiology, nephrology input On Fluid restriction Wean off of supplemental oxygen as able Not on JUAN JOSE/ARB detailed home blood pressure in the past. Likely would not tolerate Entresto Diuretics currently on hold As needed diuretics for fluid management Not a candidate for mitral valve replacement Hyponatremia likely due to hypervolemia, diuretics Continue Fluid restriction Monitor sodium levels Sodium 126 today Continue Urea, Salt Tab as per Nephrology Appreciate Nephrology Input Celexa Held Encouraged increased protein intake HINKLE Continue rifaximin Spironolactone on hold (5) Leg wound, right: Plan: Right anterior swan wound in the setting of severe PVD No signs of sepsis Venous Doppler shows greater saphenous vein graft that appears patent Continue Wound care Completed Doxycycline Course (6) PAD (peripheral artery disease): (7) CAD (coronary artery disease): (8) Elevated troponin: Plan: Troponin 41>42>48 No reports of chest pain Continue ASA, statin, beta-alma (9) Diarrhea: Plan: Seems to be a chronic issue C. difficile and stool PCR negative (10) COPD (chronic obstructive pulmonary disease): Plan: No signs of acute exacerbation (11) CKD (chronic kidney disease), stage III: Plan: Baseline creatinine mid 1's Creatinine 1.3>1.5>1.2 (12) Diabetes mellitus type 2, diet-controlled: Plan: Hgb A1c 6.6 ISS (13) Bladder cancer: Plan: Had screening cystoscopy on 02/27/22 that showed recurrence of cancer Patient scheduled for TURBT in March (14) DVT prophylaxis: Plan: SQ heparin Admission and Anticipated Discharge Date Admission Date: February 28, 2022 Subjective Patient is seen and examined at bedside Having lunch during my encounter States having some abdominal discomfort today Denies any chest pain, shortness of breath, dizziness, nausea Feels having generalized weakness Review of Systems Review of Systems: All systems reviewed & are unremarkable except as noted in Subjective Physical Exam Physical Exam: Physical Exam: Vitals signs as noted above General Appearance:Moderately built and nourished, no apparent distress Head: normocephalic, Atraumatic Eyes: normal inspection, EOMI Neck: supple, Trachea midline Respiratory/Chest: Decreased breath sounds, CTA, No accessory muscle use Cardiovascular: S1, S2, + murmur Abdomen/GI:Soft, Non tender, Bowel sounds present Extremities/Musculoskeletal:normal inspection, Left BKA, Leg wound Neurologic/Psych:AAOX3, grossly no focal neurological deficits Skin: normal color, warm Results & Data Results & Data ([facility]) Vital Signs (Past 12 Hours) Vital Signs Temp Pulse Pulse Resp BP Pulse Ox 03/20/22 15:47 36.5 C 78 18 111/72 97 03/20/22 15:36 78 03/20/22 12:00 36.4 C L 77 18 113/72 93 03/20/22 08:00 36.9 C 79 18 122/76 94 03/20/22 07:11 77 Laboratory Results [facility] 03/20/22 06:40 Sodium 126 L Potassium 4.8 Chloride 91 L Carbon Dioxide 27 BUN 105 H Creatinine 1.28 H Glucose 121 H Calcium 9.0
[2022-03-20] MEDS: ATORVASTATIN 40 MG TAB PO SCH (19:44)
[2022-03-20] MEDS: SODIUM CHLORIDE 1 GM TABLET PO SCH (19:46)
[2022-03-21] MEDS: PANTOprazole 40 MG TAB PO SCH (05:49)
[2022-03-21] MEDS: HEPARIN SOD 5,000 UNIT/0.5 ML VIAL SQ SCH ×3 (05:50→20:56)
[2022-03-21 07:39] LABS: BUN Creatinine Ratio 72.7 (10-20); Calcium 8.8 mg/dl (8.5-10.1); Creatinine Clr Calc Pharmacy 38.3 ml/min; Est GFR (African American) 52.1 ml/min; Potassium 4.7 mmol/L (3.5-5.1)
[2022-03-21] MEDS: ASPIRIN 81 MG ECTAB PO SCH (08:29)
[2022-03-21] MEDS: FERROUS GLUCONATE 324 MG TAB PO SCH ×2 (08:29→20:55)
[2022-03-21] MEDS: GABAPENTIN 800 MG TAB PO SCH ×3 (08:29→20:55)
[2022-03-21] MEDS: UREA (UREA-NA) 15 GM PACK PO SCH (08:29)
[2022-03-21] MEDS: rifAXIMin 550 MG TABLET PO SCH ×2 (08:29→20:56)
[2022-03-21] MEDS: FOLIC ACID 1 MG TAB PO SCH (08:29)
[2022-03-21] MEDS: allopurinoL 300 MG TAB PO SCH (08:29)
[2022-03-21] MEDS: SODIUM CHLORIDE 1 GM TABLET PO SCH ×2 (08:29→20:56)
[2022-03-21] MEDS: INSULIN ASPART PER UNIT SC SCH ×4 (08:32→21:08)
--- NOTE | 2022-03-21 13:07 | Nephrology Progress Note ---
Date of Service March 21, 2022 Assessment & Plan Admission and Anticipated Discharge Date Admission Date: February 28, 2022 Subjective Subjective Assessment & Plan (1) Hyponatremia: Plan: very fluctuating serum sodium. Most consistent at this point w/ Multifactorial hyponatremia.But did have Hypervolemic Hyponatremia in the beginning and now euvolemic but also low solute diet. on urea since 03/07, continue fluid limit; has had no lasix since 03/07 PM > prior to that had bid 40 mg IV 03/01-03/04 and tid 03/04-03/07 in addition to several other doses; spironolactone was given 03/01-03/06. admitted 03/01 with sNa 130 and with slow drift down to 124 as recently as 03/09. Osm serum on 03/09 PM w/ sNa 125 were 302, w/ urine osm 355 and Phylicia 32 at admission; serum osms 306 on r epeat. Sodium 126 today so did drop. -Na dropped as soon as we lowered the Salt tab and Urea. so restarted same dose again --Celexa stopped from 03/18( i personally dont think it has anything to do with low Na+) -encourage protein intake. She did not eat anything solid with her breakfast--na cannot go up unless she eats more solid food. Restart Urea 15 gm. continue Salt tab 1 bid As long as Na remains 125 + stable She may be able to be discharged but has started to drop again so like to see stable. Fluid restriction 1200 Add Protein bars/Gummies to raise the Osmolar load (2) CKD (chronic kidney disease), stage III: Plan: She is know to be non proteinuric CKD 3b with baseline Scr 1.4 --1.6 > at baseline Her renal functions are at baseline or better Diuretics on hold - Avoid nephrotoxins (3) Combined systolic and diastolic congestive heart failure: Plan: As above. >>cardiology ok with diuretics prn fluid mgt/ not necessarily strong/imperative for standing diuretics from cardiac standpoint Daily weights, strict I's and O's, low Na+ diet, 2 L fluid restriction -Echo 09/2020-EF 40 to 45%, grade 2 diastolic dysfunction, moderate aortic stenosis, mild aortic regurgitation, mild mitral stenosis, severe mitral regurgitation Repeat TTE show EF of 30-35%, LV is moderately dilated, severe MR, mod MS, LA mod dilated - Cardiology on board, not a candidate for MVR (4) Bladder cancer: Plan: screening cysto 02/27 w/ bladder CA recurrence; for TURBT in March Subjective Seen in f/u for hyponatremia. She feels weak . making urine. na up trending Review of Systems Review of Systems: All other systems were reviewed and negative except as noted in HPI Physical Exam Physical Exam: General exam: Appears comfortable, no acute distress HEENT: Pupils are equal and reactive to light Neck: No JVD, neck is supple trachea is midline Respiratory system: Clear breath sounds bilaterally. Gastrointestinal: Abdomen is soft, non distended, non tender, bowel sounds are present CVS: Regular rate and rhythm. No murmurs, rubs or gallops Musculoskeletal: No joint or muscle tenderness Extremities: Non tender, no edema, peripheral pulses are present. left BKA Neuro: Oriented, no tremors, no focal neurological deficits Skin: No rashes Results & Data ([facility]) Vital Signs (Past 12 Hours) Vital Signs Temp Pulse Pulse Pulse Resp BP Pulse Ox 03/21/22 11:23 36.4 C L 87 18 114/68 95 03/21/22 08:23 36.7 C 86 16 119/78 96 03/21/22 07:46 76 03/21/22 05:12 36.8 C 77 20 119/73 90 03/21/22 02:06 75
[2022-03-21] MEDS: METOPROLOL SUCC 25MG EXT REL TAB PO SCH (16:18)
--- NOTE | 2022-03-21 17:45 | Hospitalist Progress Note ---
Date of Service March 21, 2022 Assessment & Plan (1) Volume overload: (2) Combined systolic and diastolic congestive heart failure: (3) Valvular heart disease: (4) HINKLE (nonalcoholic steatohepatitis): Plan: Patient is a 71 yr female who presented by referral PCPs office for evaluation of shortness of breath, worsening abdominal distention Volume overload Acute on chronic systolic diastolic heart failure Likely multifactorial due to chronic systolic and diastolic CHF, valvular heart disease, HINKLE Severe Mitral Regurgitation --CT ABD/pelvis showing small bilateral pleural effusions, small amount of ascites, evidence of anasarca --BNP 2529 --Troponin 41>42>48 --ECHO: Left ventricle is moderately dilated. EF 30 to 35%. Right ventricle systolic function is normal. Left atrium is moderately dilated. Moderate valvular aortic stenosis. Moderate to severe mitral annular calcification, severe mitral regurgitation and moderate mitral stenosis. Mild to moderate tricuspid regurgitation. Estimated pulmonary artery pressure 55 mmHg. --Monitor I's and O's, daily weight Appreciate cardiology, nephrology input On Fluid restriction Wean off of supplemental oxygen as able Not on JUAN JOSE/ARB detailed home blood pressure in the past. Likely would not tolerate Entresto Diuretics currently on hold As needed diuretics for fluid management Not a candidate for mitral valve replacement Hyponatremia likely due to hypervolemia, diuretics Continue Fluid restriction Monitor sodium levels Continue Urea, Salt Tab as per Nephrology Appreciate Nephrology Input Celexa Held Encouraged increased protein intake [employer] consulted Sodium levels 125 today HINKLE Continue rifaximin Spironolactone on hold (5) Leg wound, right: Plan: Right anterior swan wound in the setting of severe PVD No signs of sepsis Venous Doppler shows greater saphenous vein graft that appears patent Continue Wound care Completed Doxycycline Course (6) PAD (peripheral artery disease): (7) CAD (coronary artery disease): (8) Elevated troponin: Plan: Troponin 41>42>48 No reports of chest pain Continue ASA, statin, beta-alma (9) Diarrhea: Plan: Seems to be a chronic issue C. difficile and stool PCR negative (10) COPD (chronic obstructive pulmonary disease): Plan: No signs of acute exacerbation (11) CKD (chronic kidney disease), stage III: Plan: Baseline creatinine mid 1's Creatinine 1.3>1.5>1.2 (12) Diabetes mellitus type 2, diet-controlled: Plan: Hgb A1c 6.6 ISS (13) Bladder cancer: Plan: Had screening cystoscopy on 02/27/22 that showed recurrence of cancer Patient scheduled for TURBT in March (14) DVT prophylaxis: Plan: SQ heparin Admission and Anticipated Discharge Date Admission Date: February 28, 2022 Subjective Patient is seen and examined at bedside States feeling well today Offers no complaints Sodium levels dropped today Abd pain resolved Denies any chest pain, shortness of breath, dizziness, nausea Review of Systems Review of Systems: All systems reviewed & are unremarkable except as noted in Subjective Physical Exam Physical Exam: Physical Exam: Vitals signs as noted above General Appearance:Moderately built and nourished, no apparent distress Head: normocephalic, Atraumatic Eyes: normal inspection, EOMI Neck: supple, Trachea midline Respiratory/Chest: Decreased breath sounds, CTA, No accessory muscle use Cardiovascular: S1, S2, + murmur Abdomen/GI:Soft, Non tender, Bowel sounds present Extremities/Musculoskeletal:normal inspection, Left BKA, Leg wound Neurologic/Psych:AAOX3, grossly no focal neurological deficits Skin: normal color, warm Results & Data Results & Data ([facility]) Vital Signs (Past 12 Hours) Vital Signs Temp Pulse Pulse Resp BP Pulse Ox 03/21/22 15:09 36.5 C 78 16 118/72 91 03/21/22 14:57 79 03/21/22 11:23 36.4 C L 87 18 114/68 95 03/21/22 08:23 36.7 C 86 16 119/78 96 03/21/22 07:46 76 Laboratory Results BMP 03/21/22 07:04 Sodium 125 L Potassium 4.7 Chloride 92 L Carbon Dioxide 25 BUN 88 H Creatinine 1.21 H Glucose 99 Calcium 8.8
[2022-03-21] MEDS: ATORVASTATIN 40 MG TAB PO SCH (21:04)
[2022-03-22] MEDS: HEPARIN SOD 5,000 UNIT/0.5 ML VIAL SQ SCH ×3 (05:24→21:13)
[2022-03-22] MEDS: PANTOprazole 40 MG TAB PO SCH (05:24)
[2022-03-22 07:07] LABS: Calcium 8.7 mg/dl (8.5-10.1); Creatinine Clr Calc Pharmacy 33.1 ml/min; Est GFR (African American) 43.7 ml/min; Est GFR (Non-African American) 37.7 ml/min
[2022-03-22] MEDS: allopurinoL 300 MG TAB PO SCH (08:26)
[2022-03-22] MEDS: ASPIRIN 81 MG ECTAB PO SCH (08:26)
[2022-03-22] MEDS: SODIUM CHLORIDE 1 GM TABLET PO SCH ×2 (08:27→21:13)
[2022-03-22] MEDS: FERROUS GLUCONATE 324 MG TAB PO SCH ×2 (08:27→21:13)
[2022-03-22] MEDS: FOLIC ACID 1 MG TAB PO SCH (08:27)
[2022-03-22] MEDS: GABAPENTIN 800 MG TAB PO SCH ×3 (08:27→21:13)
[2022-03-22] MEDS: rifAXIMin 550 MG TABLET PO SCH ×2 (08:27→21:13)
[2022-03-22] MEDS: UREA (UREA-NA) 15 GM PACK PO SCH (08:27)
[2022-03-22] MEDS: INSULIN ASPART PER UNIT SC SCH ×4 (08:29→21:42)
--- NOTE | 2022-03-22 09:20 | Nephrology Progress Note ---
Date of Service March 22, 2022 Assessment & Plan Admission and Anticipated Discharge Date Admission Date: February 28, 2022 Subjective Assessment & Plan (1) Hyponatremia: Plan: very fluctuating serum sodium. Most consistent at this point w/ Multifactorial hyponatremia.But did have Hypervolemic Hyponatremia in the beginning and now euvolemic but also low solute diet. on urea since 03/07, continue fluid limit; has had no lasix since 03/07 PM > prior to that had bid 40 mg IV 03/01-03/04 and tid 03/04-03/07 in addition to several other doses; spironolactone was given 03/01-03/06. admitted 03/01 with sNa 130 and with slow drift down to 124 as recently as 03/09. Osm serum on 03/09 PM w/ sNa 125 were 302, w/ urine osm 355 and Phylicia 32 at admission; serum osms 306 on repeat. Sodium 125 today also. very tough case. na goes up with Salt tab and Urea ( but want to stop that given very high BUN and h/o CHF) But Na dropped as soon as we lowered the Salt tab and Urea. So restarted same dose again --Celexa stopped from 03/18( i personally dont think it has anything to do with low Na+) -encourage protein intake. Na cannot go up unless she eats more solid food. Urea 15 gm. continue Salt tab 1 bid As long as Na remains 127 + stable She may be able to be discharged but has started to drop again Fluid restriction 1200 Add Protein bars/Gummies to raise the Osmolar load--Discussed with Dietitian (2) CKD (chronic kidney disease), stage III: Plan: She is know to be non proteinuric CKD 3b with baseline Scr 1.4 --1.6 > at [facility] Her renal functions are at baseline or better Diuretics on hold - Avoid nephrotoxins (3) Combined systolic and diastolic congestive heart failure: Plan: As above. >>cardiology ok with diuretics prn fluid mgt/ not necessarily strong/imperative for standing diuretics from cardiac standpoint Daily weights, strict I's and O's, low Na+ diet, 2 L fluid restriction -Echo 09/2020-EF 40 to 45%, grade 2 diastolic dysfunction, moderate aortic stenosis, mild aortic regurgitation, mild mitral stenosis, severe mitral regurgitation Repeat TTE show EF of 30-35%, LV is moderately dilated, severe MR, mod MS, LA mod dilated - Cardiology on board, not a candidate for MVR (4) Bladder cancer: Plan: screening cysto 02/27 w/ bladder CA recurrence; for TURBT in March Subjective Seen in f/u for hyponatremia. She feels weak . making urine. very low Appetite--does not like protein fooc Review of Systems Review of Systems: All other systems were reviewed and negative except as noted in HPI Physical Exam Physical Exam: General exam: Appears comfortable, no acute distress HEENT: Pupils are equal and reactive to light Neck: No JVD, neck is supple trachea is midline Respiratory system: Clear breath sounds bilaterally. Gastrointestinal: Abdomen is soft, non distended, non tender, bowel sounds are present CVS: Regular rate and rhythm. No murmurs, rubs or gallops Musculoskeletal: No joint or muscle tenderness Extremities: Non tender, no edema, peripheral pulses are present. left BKA Neuro: Oriented, no tremors, no focal neurological deficits Skin: No rashes Results & Data ([facility]) Vital Signs (Past 12 Hours) Vital Signs Temp Pulse Pulse Pulse Resp BP Pulse Ox 03/22/22 08:00 36.9 C 71 16 107/70 95 03/22/22 07:52 74 03/22/22 05:05 36.5 C 77 18 119/74 97 03/22/22 00:11 73 03/21/22 23:00 36.9 C 78 18 117/79 91
[2022-03-22] MEDS: METOPROLOL SUCC 25MG EXT REL TAB PO SCH (15:54)
[2022-03-22] MEDS: MENTHOL-ZINC OXIDE 360 APPLN/120 GM TUBE EXT SCH ×2 (15:54→21:21)
--- NOTE | 2022-03-22 17:31 | Hospitalist Progress Note ---
Date of Service March 22, 2022 Assessment & Plan (1) Volume overload: (2) Combined systolic and diastolic congestive heart failure: (3) Valvular heart disease: (4) HINKLE (nonalcoholic steatohepatitis): Plan: Patient is a 71 yr female who presented by referral PCPs office for evaluation of shortness of breath, worsening abdominal distention Volume overload Acute on chronic systolic diastolic heart failure Likely multifactorial due to chronic systolic and diastolic CHF, valvular heart disease, HINKLE Severe Mitral Regurgitation --CT ABD/pelvis showing small bilateral pleural effusions, small amount of ascites, evidence of anasarca --BNP 2529 --Troponin 41>42>48 --ECHO: Left ventricle is moderately dilated. EF 30 to 35%. Right ventricle systolic function is normal. Left atrium is moderately dilated. Moderate valvular aortic stenosis. Moderate to severe mitral annular calcification, severe mitral regurgitation and moderate mitral stenosis. Mild to moderate tricuspid regurgitation. Estimated pulmonary artery pressure 55 mmHg. --Monitor I's and O's, daily weight Appreciate cardiology, nephrology input On Fluid restriction Wean off of supplemental oxygen as able Not on JUAN JOSE/ARB detailed home blood pressure in the past. Likely would not tolerate Entresto Diuretics currently on hold As needed diuretics for fluid management Not a candidate for mitral valve replacement Hyponatremia likely due to hypervolemia, diuretics Continue Fluid restriction Monitor sodium levels Continue Urea, Salt Tab as per Nephrology Appreciate Nephrology Input Celexa Held Encouraged increased protein intake Lagging Machine Operator consulted Sodium levels 125 today Continue current meds HINKLE Continue rifaximin Spironolactone on hold (5) Leg wound, right: Plan: Right anterior swan wound in the setting of severe PVD No signs of sepsis Venous Doppler shows greater saphenous vein graft that appears patent Continue Wound care Completed Doxycycline Course (6) PAD (peripheral artery disease): (7) CAD (coronary artery disease): (8) Elevated troponin: Plan: Troponin 41>42>48 No reports of chest pain Continue ASA, statin, beta-alma (9) Diarrhea: Plan: Seems to be a chronic issue C. difficile and stool PCR negative (10) COPD (chronic obstructive pulmonary disease): Plan: No signs of acute exacerbation (11) CKD (chronic kidney disease), stage III: Plan: Baseline creatinine mid 1's Creatinine 1.3>1.5>1.4 Monitor (12) Diabetes mellitus type 2, diet-controlled: Plan: Hgb A1c 6.6 ISS (13) Bladder cancer: Plan: Had screening cystoscopy on 02/27/22 that showed recurrence of cancer Patient scheduled for TURBT in March (14) DVT prophylaxis: Plan: SQ heparin Admission and Anticipated Discharge Date Admission Date: February 28, 2022 Subjective Patient is seen and examined at bedside Complains of sacral/Perianal pain Sodium levels stable at 125 today Denies any chest pain, shortness of breath, dizziness, nausea Eager to get discharged Review of Systems Review of Systems: All systems reviewed & are unremarkable except as noted in Subjective Physical Exam Physical Exam: Physical Exam: Vitals signs as noted above General Appearance:Moderately built and nourished, no apparent distress Head: normocephalic, Atraumatic Eyes: normal inspection, EOMI Neck: supple, Trachea midline Respiratory/Chest: Decreased breath sounds, CTA, No accessory muscle use Cardiovascular: S1, S2, + murmur Abdomen/GI:Soft, Non tender, Bowel sounds present Extremities/Musculoskeletal:normal inspection, Left BKA, Leg wound Neurologic/Psych:AAOX3, grossly no focal neurological deficits Skin: normal color, warm Results & Data Results & Data ([facility] [place]) Vital Signs (Past 12 Hours) Vital Signs Temp Pulse Pulse Resp BP Pulse Ox 03/22/22 11:31 36.6 C 85 16 97/58 L 95 03/22/22 08:00 36.9 C 71 16 107/70 95 03/22/22 07:52 74 Laboratory Results [facility] 03/22/22 06:31 Sodium 125 L Potassium 5.0 Chloride 91 L Carbon Dioxide 27 BUN 84 H Creatinine 1.40 H Glucose 109 H Calcium 8.7
[2022-03-22] MEDS: ATORVASTATIN 40 MG TAB PO SCH (21:13)
[2022-03-23] MEDS: PANTOprazole 40 MG TAB PO SCH (06:23)
[2022-03-23] MEDS: HEPARIN SOD 5,000 UNIT/0.5 ML VIAL SQ SCH ×3 (06:23→22:34)
[2022-03-23 07:29] LABS: BUN Creatinine Ratio 71.6 (10-20); Calcium 8.7 mg/dl (8.5-10.1); Est GFR (African American) 59.1 ml/min; Potassium 4.6 mmol/L (3.5-5.1)
[2022-03-23] MEDS: GABAPENTIN 800 MG TAB PO SCH ×3 (07:31→20:28)
[2022-03-23] MEDS: SODIUM CHLORIDE 1 GM TABLET PO SCH ×2 (07:31→20:27)
[2022-03-23] MEDS: rifAXIMin 550 MG TABLET PO SCH ×2 (07:32→20:27)
[2022-03-23] MEDS: FOLIC ACID 1 MG TAB PO SCH (07:32)
[2022-03-23] MEDS: FERROUS GLUCONATE 324 MG TAB PO SCH ×2 (07:32→20:28)
[2022-03-23] MEDS: allopurinoL 300 MG TAB PO SCH (07:32)
[2022-03-23] MEDS: MENTHOL-ZINC OXIDE 360 APPLN/120 GM TUBE EXT SCH ×2 (07:32→20:29)
[2022-03-23] MEDS: ASPIRIN 81 MG ECTAB PO SCH (07:32)
[2022-03-23] MEDS: UREA (UREA-NA) 15 GM PACK PO SCH (07:33)
[2022-03-23] MEDS: INSULIN ASPART PER UNIT SC SCH ×4 (08:25→20:48)
--- NOTE | 2022-03-23 14:16 | Hospitalist Progress Note ---
Date of Service March 23, 2022 Assessment & Plan (1) Volume overload: (2) Combined systolic and diastolic congestive heart failure: (3) Valvular heart disease: (4) HINKLE (nonalcoholic steatohepatitis): Plan: Patient is a 71 yr female who presented by referral PCPs office for evaluation of shortness of breath, worsening abdominal distention Volume overload Acute on chronic systolic diastolic heart failure Likely multifactorial due to chronic systolic and diastolic CHF, valvular heart disease, HINKLE Severe Mitral Regurgitation --CT ABD/pelvis showing small bilateral pleural effusions, small amount of ascites, evidence of anasarca --BNP 2529 --Troponin 41>42>48 --ECHO: Left ventricle is moderately dilated. EF 30 to 35%. Right ventricle systolic function is normal. Left atrium is moderately dilated. Moderate valvular aortic stenosis. Moderate to severe mitral annular calcification, severe mitral regurgitation and moderate mitral stenosis. Mild to moderate tricuspid regurgitation. Estimated pulmonary artery pressure 55 mmHg. --Monitor I's and O's, daily weight Appreciate cardiology, nephrology input On Fluid restriction--1200ml/day Wean off of supplemental oxygen as able Not on JUAN JOSE/ARB detailed home blood pressure in the past. Likely would not tolerate Entresto Diuretics currently on hold As needed diuretics for fluid management Not a candidate for mitral valve replacement Volume status improved Hyponatremia likely due to hypervolemia, diuretics Continue Fluid restriction Monitor sodium levels Continue Urea, Salt Tab as per Nephrology Appreciate Nephrology Input Celexa Held Encouraged increased protein intake Melt House Drag Operator consulted Sodium levels 127 today HINKLE Continue rifaximin Spironolactone on hold (5) Leg wound, right: Plan: Right anterior swan wound in the setting of severe PVD No signs of sepsis Venous Doppler shows greater saphenous vein graft that appears patent Continue Wound care Completed Doxycycline Course (6) PAD (peripheral artery disease): (7) CAD (coronary artery disease): (8) Elevated troponin: Plan: Troponin 41>42>48 No reports of chest pain Continue ASA, statin, beta-alma (9) Diarrhea: Plan: Seems to be a chronic issue C. difficile and stool PCR negative (10) COPD (chronic obstructive pulmonary disease): Plan: No signs of acute exacerbation (11) CKD (chronic kidney disease), stage III: Plan: Baseline creatinine mid 1's Creatinine 1.3>1.5>1.4> 1.09 Monitor (12) Diabetes mellitus type 2, diet-controlled: Plan: Hgb A1c 6.6 ISS (13) Bladder cancer: Plan: Had screening cystoscopy on 02/27/22 that showed recurrence of cancer Patient scheduled for TURBT in March (14) DVT prophylaxis: Plan: SQ heparin Plan: Disposition SNF as able Admission and Anticipated Discharge Date Admission Date: February 28, 2022 Subjective Patient is seen and examined at bedside Doing well today Sacral/Perianal pain improved Sodium levels improved to 127 Denies any chest pain, shortness of breath, dizziness, nausea Review of Systems Review of Systems: All systems reviewed & are unremarkable except as noted in Subjective Physical Exam Physical Exam: Physical Exam: Vitals signs as noted above General Appearance:Moderately built and nourished, no apparent distress Head: normocephalic, Atraumatic Eyes: normal inspection, EOMI Neck: supple, Trachea midline Respiratory/Chest: Decreased breath sounds, CTA, No accessory muscle use Cardiovascular: S1, S2, + murmur Abdomen/GI:Soft, Non tender, Bowel sounds present Extremities/Musculoskeletal:normal inspection, Left BKA, Leg wound Neurologic/Psych:AAOX3, grossly no focal neurological deficits Skin: normal color, warm Results & Data Results & Data ([facility]) Vital Signs (Past 12 Hours) Vital Signs Temp Pulse Resp BP Pulse Ox 03/23/22 11:11 36.8 C 77 18 115/70 91 03/23/22 07:37 36.4 C L 99 H 20 104/71 93 03/23/22 03:00 36.5 C 79 18 113/69 91 Laboratory Results [facility] 03/23/22 06:25 Sodium 127 L Potassium 4.6 Chloride 93 L Carbon Dioxide 25 BUN 78 H Creatinine 1.09 D Glucose 88 Calcium 8.7
[2022-03-23] MEDS: ONDANSETRON INJ 2 MG/ML 2 ML VIAL IV PRN (14:50)
--- NOTE | 2022-03-23 15:36 | Nephrology Progress Note ---
Date of Service March 23, 2022 Assessment & Plan (1) Hyponatremia: Plan: fluctuating low serum sodium, likely Multifactorial now and w/ changing cause through hospital course.HadHypervolemic Hyponatremia in the beginning and now euvolemic but also low solute diet. has had no lasix since 03/07 PM > prior to that had aggressive dosing. admitted 03/01 with sNa 130 and with slow drift down to 124 as recently as 03/09. Sodium 127 today, a bit better but overall a very tough case. na goes up with Salt tab and Urea (but want to stop that given very high BUN and h/o CHF) But Na dropped as soon as we lowered the Salt tab and Urea. So restarted same dose again --Celexa stopped from 03/18 ( i personally dont think it has anything to do with low Na+) -encourage protein intake. Na cannot go up unless she eats more solid food. Urea 15 gm. continue Salt tab 1 bid As long as Na remains 127 + stable She may be able to be discharged Fluid restriction 1200 Add Protein bars/Gummies to raise the Osmolar load--pls discuss w/ transfer car operator at accepting facility (2) CKD (chronic kidney disease), stage III: Plan: She is know to be non protenuric CKD 3b with baseline Scr 1.4 --1.6 > better than baseline Her renal functions are at baseline or better Diuretics on hold - Avoid nephrotoxins (3) Combined systolic and diastolic congestive heart failure: Plan: >>cardiology ok with diuretics prn fluid mgt/ not necessarily strong/imperative for standing diuretics from cardiac standpoint > low Na+ diet (even w/ salt tabs), 1.2 L fluid restriction -Echo 09/2020-EF 40 to 45%, grade 2 diastolic dysfunction, moderate aortic stenosis, mild aortic regurgitation, mild mitral stenosis, severe mitral regurgitation Repeat TTE show EF of 30-35%, LV is moderately dilated, severe MR, mod MS, LA mod dilated - Cardiology on board, not a candidate for MVR (4) Bladder cancer: Plan: screening cysto 02/27 w/ bladder CA recurrence; for TURBT in March Admission and Anticipated Discharge Date Admission Date: February 28, 2022 Subjective no interval clinical events; no sob; no N; no pain; knows she needs to eat protein but struggles Review of Systems Review of Systems: All systems reviewed & are unremarkable except as noted in Subjective Physical Exam Constitutional: well developed, well nourished, + obese and cooperative; no acute distress Eyes: EOM intact bilaterally ENMT: Ears: no external ear abnormality Nose: no external nose abnormality Mouth: + dry oral mucous membranes Neck: no nuchal rigidity Respiratory: normal respiratory effort Auscultation: + diminished lung sounds Cardiovascular: Rate/Rhythm: regular rate and regular rhythm Extremities: no edema Gastrointestinal (Abdomen): Inspection/Auscultation: normal bowel sounds Percussion/Palpation: abdomen soft; abdomen nontender Musculoskeletal: Extremities: strength 5/5 throughout L BKA Skin: no rashes, warm and dry Trauma: + evidence of skin trauma Neurologic: mcnally, fluent speech, no tremor Psychiatric: Orientation: oriented to person and oriented to place Results & Data ([facility]) Vital Signs (Past 12 Hours) Vital Signs Temp Pulse Resp BP Pulse Ox 03/23/22 15:25 37.2 C 93 H 18 110/72 93 03/23/22 11:11 36.8 C 77 18 115/70 91 03/23/22 07:37 36.4 C L 99 H 20 104/71 93 Laboratory Results 03/14/22 17:16 03/23/22 06:25
[2022-03-23] MEDS: METOPROLOL SUCC 25MG EXT REL TAB PO SCH (15:56)
[2022-03-23] MEDS: ATORVASTATIN 40 MG TAB PO SCH (20:28)
[2022-03-24] MEDS: PANTOprazole 40 MG TAB PO SCH (06:02)
[2022-03-24] MEDS: HEPARIN SOD 5,000 UNIT/0.5 ML VIAL SQ SCH ×3 (06:03→21:16)
[2022-03-24 06:51] LABS: BUN Creatinine Ratio 68.8 (10-20); Calcium 8.8 mg/dl (8.5-10.1); Creatinine Clr Calc Pharmacy 41.5 ml/min; Est GFR (African American) 57.2 ml/min; Est GFR (Non-African American) 49.4 ml/min; Potassium 4.9 mmol/L (3.5-5.1)
[2022-03-24] MEDS: FOLIC ACID 1 MG TAB PO SCH (08:01)
[2022-03-24] MEDS: SODIUM CHLORIDE 1 GM TABLET PO SCH ×2 (08:01→21:13)
[2022-03-24] MEDS: ASPIRIN 81 MG ECTAB PO SCH (08:01)
[2022-03-24] MEDS: allopurinoL 300 MG TAB PO SCH (08:01)
[2022-03-24] MEDS: GABAPENTIN 800 MG TAB PO SCH ×3 (08:02→21:13)
[2022-03-24] MEDS: UREA (UREA-NA) 15 GM PACK PO SCH (08:02)
[2022-03-24] MEDS: FERROUS GLUCONATE 324 MG TAB PO SCH ×2 (08:03→21:14)
[2022-03-24] MEDS: rifAXIMin 550 MG TABLET PO SCH ×2 (08:03→21:13)
[2022-03-24] MEDS: MENTHOL-ZINC OXIDE 360 APPLN/120 GM TUBE EXT SCH ×2 (08:03→21:16)
[2022-03-24] MEDS: INSULIN ASPART PER UNIT SC SCH ×4 (08:54→21:09)
[2022-03-24] MEDS: METOPROLOL SUCC 25MG EXT REL TAB PO SCH (16:19)
--- NOTE | 2022-03-24 17:08 | Hospitalist Progress Note ---
Date of Service March 24, 2022 Assessment & Plan (1) Volume overload: (2) Combined systolic and diastolic congestive heart failure: (3) Valvular heart disease: (4) HINKLE (nonalcoholic steatohepatitis): Plan: Patient is a 71 yr female who presented by referral PCPs office for evaluation of shortness of breath, worsening abdominal distention Volume overload Acute on chronic systolic diastolic heart failure Likely multifactorial due to chronic systolic and diastolic CHF, valvular heart disease, HINKLE Severe Mitral Regurgitation --CT ABD/pelvis showing small bilateral pleural effusions, small amount of ascites, evidence of anasarca --BNP 2529 --Troponin 41>42>48 --ECHO: Left ventricle is moderately dilated. EF 30 to 35%. Right ventricle systolic function is normal. Left atrium is moderately dilated. Moderate valvular aortic stenosis. Moderate to severe mitral annular calcification, severe mitral regurgitation and moderate mitral stenosis. Mild to moderate tricuspid regurgitation. Estimated pulmonary artery pressure 55 mmHg. --Monitor I's and O's, daily weight Appreciate cardiology, nephrology input On Fluid restriction--1200ml/day Wean off of supplemental oxygen as able Not on JUAN JOSE/ARB detailed home blood pressure in the past. Likely would not tolerate Entresto Diuretics currently on hold As needed diuretics for fluid management Not a candidate for mitral valve replacement Closely monitor volume status Hyponatremia likely due to hypervolemia, diuretics Continue Fluid restriction Monitor sodium levels Continue Urea, Salt Tab as per Nephrology Appreciate Nephrology Input Celexa Held Encouraged increased protein intake Customer Service Coordinator consulted Sodium levels 127 today Stable HINKLE Continue rifaximin Spironolactone on hold (5) Leg wound, right: Plan: Right anterior swan wound in the setting of severe PVD No signs of sepsis Venous Doppler shows greater saphenous vein graft that appears patent Continue Wound care Completed Doxycycline Course (6) PAD (peripheral artery disease): (7) CAD (coronary artery disease): (8) Elevated troponin: Plan: Troponin 41>42>48 No reports of chest pain Continue ASA, statin, beta-alma (9) Diarrhea: Plan: Seems to be a chronic issue C. difficile and stool PCR negative (10) COPD (chronic obstructive pulmonary disease): Plan: No signs of acute exacerbation (11) CKD (chronic kidney disease), stage III: Plan: Baseline creatinine mid 1's Creatinine 1.3>1.5>1.4> 1.1 Monitor (12) Diabetes mellitus type 2, diet-controlled: Plan: Hgb A1c 6.6 ISS (13) Bladder cancer: Plan: Had screening cystoscopy on 02/27/22 that showed recurrence of cancer Patient scheduled for TURBT in March (14) DVT prophylaxis: Plan: SQ heparin Plan: Disposition SNF as able Admission and Anticipated Discharge Date Admission Date: February 28, 2022 Subjective Patient is seen and examined at bedside Clinically no significant change today Offers no complaints Sodium level stable Denies any chest pain, shortness of breath, dizziness, nausea Review of Systems Review of Systems: All systems reviewed & are unremarkable except as noted in Subjective Physical Exam Physical Exam: Physical Exam: Vitals signs as noted above General Appearance:Moderately built and nourished, no apparent distress Head: normocephalic, Atraumatic Eyes: normal inspection, EOMI Neck: supple, Trachea midline Respiratory/Chest: Decreased breath sounds, CTA, No accessory muscle use Cardiovascular: S1, S2, + murmur Abdomen/GI:Soft, Non tender, Bowel sounds present Extremities/Musculoskeletal:normal inspection, Left BKA, Leg wound Neurologic/Psych:AAOX3, grossly no focal neurological deficits Skin: normal color, warm Results & Data Results & Data ([facility]) Vital Signs (Past 12 Hours) Vital Signs Temp Pulse Resp BP Pulse Ox 03/24/22 15:00 36.7 C 74 18 115/82 94 03/24/22 11:03 36.3 C L 71 20 106/60 92 03/24/22 07:00 36.7 C 69 18 117/76 91 Laboratory Results [facility] 03/24/22 05:01 Sodium 127 L Potassium 4.9 Chloride 93 L Carbon Dioxide 26 BUN 77 H Creatinine 1.12 Glucose 86 Calcium 8.8
[2022-03-24] MEDS: ATORVASTATIN 40 MG TAB PO SCH (21:13)
[2022-03-25] MEDS: PANTOprazole 40 MG TAB PO SCH (06:08)
[2022-03-25] MEDS: HEPARIN SOD 5,000 UNIT/0.5 ML VIAL SQ SCH ×3 (06:09→21:00)
[2022-03-25 08:00] LABS: BUN Creatinine Ratio 63.1 (10-20); Calcium 8.8 mg/dl (8.5-10.1); Creatinine Clr Calc Pharmacy 35.8 ml/min; Est GFR (African American) 47.8 ml/min; Est GFR (Non-African American) 41.2 ml/min; Potassium 5.2 mmol/L (3.5-5.1)
[2022-03-25] MEDS: INSULIN ASPART PER UNIT SC SCH ×4 (08:17→20:55)
[2022-03-25] MEDS: FOLIC ACID 1 MG TAB PO SCH (08:21)
[2022-03-25] MEDS: UREA (UREA-NA) 15 GM PACK PO SCH (08:21)
[2022-03-25] MEDS: FERROUS GLUCONATE 324 MG TAB PO SCH ×2 (08:22→20:56)
[2022-03-25] MEDS: SODIUM CHLORIDE 1 GM TABLET PO SCH ×2 (08:22→20:55)
[2022-03-25] MEDS: allopurinoL 300 MG TAB PO SCH (08:22)
[2022-03-25] MEDS: GABAPENTIN 800 MG TAB PO SCH ×3 (08:22→20:57)
[2022-03-25] MEDS: rifAXIMin 550 MG TABLET PO SCH ×2 (08:22→20:56)
[2022-03-25] MEDS: ASPIRIN 81 MG ECTAB PO SCH (08:22)
[2022-03-25] MEDS: MENTHOL-ZINC OXIDE 360 APPLN/120 GM TUBE EXT SCH ×2 (08:23→20:45)
[2022-03-25] MEDS: ONDANSETRON INJ 2 MG/ML 2 ML VIAL IV PRN (15:17)
--- NOTE | 2022-03-25 16:56 | Nephrology Progress Note ---
Date of Service March 25, 2022 Assessment & Plan (1) Hyponatremia: Plan: fluctuating low serum sodium, likely Multifactorial now and w/ changing cause through hospital course.Had Hypervolemic Hyponatremia in the beginning and now euvolemic but also low solute diet. has had no lasix since 03/07 PM > prior to that had aggressive dosing. admitted 03/01 with sNa 130 and with slow drift down to 124 as recently as 03/09. Sodium 127 again today, stable but overall a very tough case. Na goes up with Salt tab and Urea (but want to stop that given very high BUN and h/o CHF) But Na drops as soon as we lowered the Salt tab and Urea. So restarted same doses again --Celexa stopped from 03/18 ( i personally dont think it has anything to do with low Na+) -encourage protein intake. Na cannot go up unless she eats more solid food. >>As long as Na remains 127 + stable She can be discharged Fluid restriction 1200; kelechi dominguez do NOT count toward this >>pls Add Protein bars/Gummies to raise the Osmolar load--pls discuss w/ aesthetics instructor at accepting facility -started low K diet; will check serum osms w/ am labs -cont daily bmp (2) CKD (chronic kidney disease), stage III: Plan: She is know to be non protenuric CKD 3b with baseline Scr 1.4 --1.6 > still better than baseline Diuretics on hold - Avoid nephrotoxins (3) Combined systolic and diastolic congestive heart failure: Plan: >>cardiology ok with diuretics prn fluid mgt/ not necessarily strong/imperative for standing diuretics from cardiac standpoint > low Na+ diet (even w/ salt tabs), 1.2 L fluid restriction -Echo 09/2020-EF 40 to 45%, grade 2 diastolic dysfunction, moderate aortic stenosis, mild aortic regurgitation, mild mitral stenosis, severe mitral regurgitation Repeat TTE show EF of 30-35%, LV is moderately dilated, severe MR, mod MS, LA mod dilated - Cardiology on board, not a candidate for MVR (4) Bladder cancer: Plan: screening cysto 02/27 w/ bladder CA recurrence; for TURBT in March Admission and Anticipated Discharge Date Admission Date: February 28, 2022 Subjective no c/o this AM when I saw her including no sob, no n/v; has dentures and eating better Review of Systems Review of Systems: All systems reviewed & are unremarkable except as noted in Subjective Physical Exam Constitutional: well developed, well nourished, + obese and cooperative; no acute distress Eyes: EOM intact bilaterally ENMT: Ears: no external ear abnormality Nose: no external nose abnormality Mouth: + dry oral mucous membranes Neck: no nuchal rigidity Respiratory: normal respiratory effort Auscultation: + diminished lung sounds, + rhonchi and + wheezes (ins/ex) Cardiovascular: Rate/Rhythm: regular rate and regular rhythm Extremities: no edema Gastrointestinal (Abdomen): Inspection/Auscultation: normal bowel sounds Percussion/Palpation: abdomen soft; abdomen nontender Musculoskeletal: Extremities: strength 5/5 throughout Skin: no rashes, warm and dry + ecchymosis (extensive L arm) Trauma: + evidence of skin trauma Psychiatric: Orientation: oriented to person and oriented to place Results & Data ([facility]) Vital Signs (Past 12 Hours) Vital Signs Temp Pulse Pulse Resp BP Pulse Ox 03/25/22 15:00 36.6 C 64 18 100/59 L 100 03/25/22 11:17 36.6 C 76 20 96/54 L 98 03/25/22 07:11 70 03/25/22 07:00 36.4 C L 78 20 112/69 92 Laboratory Results 03/14/22 17:16 03/25/22 06:44
--- NOTE | 2022-03-25 17:05 | Hospitalist Progress Note ---
Date of Service March 25, 2022 Assessment & Plan (1) Volume overload: (2) Combined systolic and diastolic congestive heart failure: (3) Valvular heart disease: (4) HINKLE (nonalcoholic steatohepatitis): Plan: Patient is a 71 yr female who presented by referral PCPs office for evaluation of shortness of breath, worsening abdominal distention Volume overload Acute on chronic systolic diastolic heart failure Likely multifactorial due to chronic systolic and diastolic CHF, valvular heart disease, HINKLE Severe Mitral Regurgitation --CT ABD/pelvis showing small bilateral pleural effusions, small amount of ascites, evidence of anasarca --BNP 2529 --Troponin 41>42>48 --ECHO: Left ventricle is moderately dilated. EF 30 to 35%. Right ventricle systolic function is normal. Left atrium is moderately dilated. Moderate valvular aortic stenosis. Moderate to severe mitral annular calcification, severe mitral regurgitation and moderate mitral stenosis. Mild to moderate tricuspid regurgitation. Estimated pulmonary artery pressure 55 mmHg. --Monitor I's and O's, daily weight Appreciate cardiology, nephrology input On Fluid restriction--1200ml/day Wean off of supplemental oxygen as able Not on JUAN JOSE/ARB detailed home blood pressure in the past. Likely would not tolerate Entresto Diuretics currently on hold As needed diuretics for fluid management Not a candidate for mitral valve replacement Closely monitor volume status Plan to discharge to SNF as able Hyponatremia likely due to hypervolemia, diuretics Continue Fluid restriction Monitor sodium levels Continue Urea, Salt Tab as per Nephrology Appreciate Nephrology Input Celexa Held Encouraged increased protein intake Sand Control Worker consulted Sodium levels 127 today Stable Hyperkalemia Potassium 5.2 today Monitor HINKLE Continue rifaximin Spironolactone on hold (5) Leg wound, right: Plan: Right anterior swan wound in the setting of severe PVD No signs of sepsis Venous Doppler shows greater saphenous vein graft that appears patent Continue Wound care Completed Doxycycline Course (6) PAD (peripheral artery disease): (7) CAD (coronary artery disease): (8) Elevated troponin: Plan: Troponin 41>42>48 No reports of chest pain Continue ASA, statin, beta-alma (9) Diarrhea: Plan: Seems to be a chronic issue C. difficile and stool PCR negative (10) COPD (chronic obstructive pulmonary disease): Plan: No signs of acute exacerbation (11) CKD (chronic kidney disease), stage III: Plan: Baseline creatinine mid 1's Creatinine 1.3>1.5>1.4> 1.3 Monitor (12) Diabetes mellitus type 2, diet-controlled: Plan: Hgb A1c 6.6 ISS (13) Bladder cancer: Plan: Had screening cystoscopy on 02/27/22 that showed recurrence of cancer Patient scheduled for TURBT in March (14) DVT prophylaxis: Plan: SQ heparin Plan: Disposition SNF as able Admission and Anticipated Discharge Date Admission Date: February 28, 2022 Subjective Patient is seen and examined at bedside States having dizziness while trying to stand up No other complaints Noted mild hyperkalemia on labs Denies any chest pain, shortness of breath, dizziness, nausea Review of Systems Review of Systems: All systems reviewed & are unremarkable except as noted in Subjective Physical Exam Physical Exam: Physical Exam: Vitals signs as noted above General Appearance:Moderately built and nourished, no apparent distress Head: normocephalic, Atraumatic Eyes: normal inspection, EOMI Neck: supple, Trachea midline Respiratory/Chest: Decreased breath sounds, CTA, No accessory muscle use Cardiovascular: S1, S2, + murmur Abdomen/GI:Soft, Non tender, Bowel sounds present Extremities/Musculoskeletal:normal inspection, Left BKA, Leg wound Neurologic/Psych:AAOX3, grossly no focal neurological deficits Skin: normal color, warm Results & Data Results & Data ([facility]) Vital Signs (Past 12 Hours) Vital Signs Temp Pulse Pulse Resp BP Pulse Ox 03/25/22 15:00 36.6 C 64 18 100/59 L 100 03/25/22 11:17 36.6 C 76 20 96/54 L 98 03/25/22 07:11 70 03/25/22 07:00 36.4 C L 78 20 112/69 92 Laboratory Results [facility] 03/25/22 06:44 Sodium 127 L Potassium 5.2 H Chloride 94 L Carbon Dioxide 27 BUN 82 H Creatinine 1.30 H Glucose 99 Calcium 8.8
[2022-03-25] MEDS: METOPROLOL SUCC 25MG EXT REL TAB PO SCH (17:16)
[2022-03-25] MEDS: ATORVASTATIN 40 MG TAB PO SCH (20:55)
[2022-03-26] MEDS: HEPARIN SOD 5,000 UNIT/0.5 ML VIAL SQ SCH ×4 (05:41→20:29)
[2022-03-26] MEDS: PANTOprazole 40 MG TAB PO SCH (05:41)
[2022-03-26 07:50] LABS: Calcium 8.9 mg/dl (8.5-10.1); Est GFR (African American) 51.6 ml/min; Est GFR (Non-African American) 44.5 ml/min; Potassium 5.5 mmol/L (3.5-5.1)
[2022-03-26] MEDS: MENTHOL-ZINC OXIDE 360 APPLN/120 GM TUBE EXT SCH ×2 (08:16→20:29)
[2022-03-26] MEDS: UREA (UREA-NA) 15 GM PACK PO SCH (08:16)
[2022-03-26] MEDS: SODIUM CHLORIDE 1 GM TABLET PO SCH ×2 (08:16→20:27)
[2022-03-26] MEDS: allopurinoL 300 MG TAB PO SCH (08:16)
[2022-03-26] MEDS: GABAPENTIN 800 MG TAB PO SCH ×3 (08:16→20:27)
[2022-03-26] MEDS: FERROUS GLUCONATE 324 MG TAB PO SCH ×2 (08:16→20:27)
[2022-03-26] MEDS: rifAXIMin 550 MG TABLET PO SCH ×2 (08:16→20:28)
[2022-03-26] MEDS: ASPIRIN 81 MG ECTAB PO SCH (08:16)
[2022-03-26] MEDS: FOLIC ACID 1 MG TAB PO SCH (08:16)
[2022-03-26] MEDS: INSULIN ASPART PER UNIT SC SCH ×4 (08:18→20:27)
[2022-03-26] MEDS: ONDANSETRON INJ 2 MG/ML 2 ML VIAL IV PRN (09:08)
[2022-03-26] MEDS ORDERED: PATIROMER CALCIUM SORBITEX 8.4 GM PACK PO ONE (10:15)
--- NOTE | 2022-03-26 10:16 | Nephrology Progress Note ---
Date of Service March 26, 2022 Assessment & Plan (1) Hyponatremia: Plan: fluctuating low serum sodium, likely Multifactorial now and w/ changing cause through hospital course.Had Hypervolemic Hyponatremia in the beginning and now euvolemic but also low solute diet. has had no lasix since 03/07 PM > prior to that had aggressive dosing. admitted 03/01 with sNa 130 and with slow drift down to 124 as recently as 03/09. Sodium dropped to 125 after several days at 127; overall a very tough case b/c of fluctuating cause/volume status. Na goes up with Salt tab and Urea (but want to stop that given very high BUN and h/o CHF) But Na drops as soon as we lowered the Salt tab and Urea. So restarted urea, salt tabs lower end doses Now with isoosmolar or borderline hyperosmolar hyponatremia and mild hyperkalemia -starting lasix 20 mg po daily today -gave one time veltassa dose -continue low K diet -check CXR >> shows pulm vascular congestion --Celexa stopped from 03/18 ( i personally dont think it has anything to do with low Na+) -encourage protein intake. Na cannot go up unless she eats more solid food. Fluid restriction 1200; protein shakes do NOT count toward this >>pls Add Protein bars/Gummies to raise the Osmolar load--pls discuss w/ sap bw architect at accepting facility -started low K diet; will check serum osms w/ am labs TENTATIVE DISCHARGE RECS (not likely d/c today) -STABLE /asymptomatic chronic hyponatremia > can be d/c w/ renal nurse to order or follow up on q Fri/ BMP -1.2 fluid limit and low K diet; protein shakes do NOT count toward FR -f/u in 1 week with nephrology at [facility] (Dr Morataya preferred; Dr Gleason [place]; will transition eventually to [facility] nephro clinic but no availability currently) -push protein gummies/shakes/ high protein diet -d/c on current lasix, salt tab, urea dose (2) CKD (chronic kidney disease), stage III: Plan: She is know to be non protenuric CKD 3b with baseline Scr 1.4 --1.6 > still better than baseline Diuretics on hold - Avoid nephrotoxins (3) Combined systolic and diastolic congestive heart failure: Plan: >>cardiology ok with diuretics prn fluid mgt/ not necessarily strong/imperative for standing diuretics from cardiac standpoint > low Na+ diet (even w/ salt tabs), 1.2 L fluid restriction -Echo 09/2020-EF 40 to 45%, grade 2 diastolic dysfunction, moderate aortic stenosis, mild aortic regurgitation, mild mitral stenosis, severe mitral regurgitation Repeat TTE show EF of 30-35%, LV is moderately dilated, severe MR, mod MS, LA mod dilated - Cardiology on board, not a candidate for MVR (4) Bladder cancer: Plan: screening cysto 02/27 w/ bladder CA recurrence; for TURBT in March Admission and Anticipated Discharge Date Admission Date: February 28, 2022 Subjective no interval events; tired today; no sob Review of Systems Review of Systems: All systems reviewed & are unremarkable except as noted in Subjective Physical Exam Constitutional: well developed, well nourished, + obese and cooperative; no acute distress Eyes: EOM intact bilaterally ENMT: Ears: no external ear abnormality Nose: no external nose abnormality Mouth: + dry oral mucous membranes Neck: no nuchal rigidity Respiratory: normal respiratory effort Auscultation: + diminished lung sounds, + rhonchi and + wheezes (ins/ex) Cardiovascular: Rate/Rhythm: regular rate and regular rhythm Extremities: no edema Gastrointestinal (Abdomen): Inspection/Auscultation: normal bowel sounds Percussion/Palpation: abdomen soft; abdomen nontender Musculoskeletal: Extremities: strength 5/5 throughout L BKA Skin: no rashes, warm and dry + ecchymosis (extensive) Trauma: + evidence of skin trauma Psychiatric: Orientation: oriented to person and oriented to place Results & Data ([facility]) Vital Signs (Past 12 Hours) Vital Signs Temp Pulse Pulse Pulse Resp BP BP 03/26/22 07:20 36.5 C 72 16 107/57 L 03/26/22 07:02 71 03/26/22 03:15 36.8 C 71 18 110/68 03/25/22 23:12 36.8 C 69 18 104/59 L 03/25/22 23:00 69 Pulse Ox 03/26/22 07:20 90 03/26/22 07:02 03/26/22 03:15 90 03/25/22 23:12 93 03/25/22 23:00 Laboratory Results 03/14/22 17:16 03/26/22 05:59
[2022-03-26] MEDS ORDERED: PATIROMER CALCIUM SORBITEX 8.4 GM PACK PO SCH (11:00)
--- NOTE | 2022-03-26 11:06 | XRay Report ---
SINGLE VIEW CHEST CLINICAL HISTORY: Congestive heart failure. FINDINGS: An AP, portable, upright chest radiograph is compared to study dated 03/14/2022 and correlat ed with chest CT dated 03/08/2021. The examination is degraded by portable technique and patient rotat ion. The mitral annulus is densely calcified. The heart is enlarged noting atherosclerotic calcificat ion of the thoracic aorta. There is pulmonary vascular congestion. Chronic interstitial thickening si milar to previous. Scarring/atelectasis is noted at the lung bases. No large pleural effusion or pneu mothorax is seen. The skeletal structures are osteopenic. The bony thorax is grossly intact. Arthriti c changes noted in the left shoulder. A right shoulder arthroplasty is in place there is surgical cli ps are seen in the lower neck bilaterally. IMPRESSION: 1. Cardiomegaly with pulmonary vascular congestion. 2. No airspace consolidation or large pleural effusion is identified. ACT 112: Negative or not required by law. Electronically signed by: Jono Berg M.D. 03/26/2022 11:05 AM
[2022-03-26] MEDS: FUROSEMIDE 20 MG TAB PO SCH (11:47)
[2022-03-26] MEDS: METOPROLOL SUCC 25MG EXT REL TAB PO SCH (16:02)
--- NOTE | 2022-03-26 16:39 | Hospitalist Progress Note ---
Date of Service March 26, 2022 Assessment & Plan (1) Volume overload: (2) Combined systolic and diastolic congestive heart failure: (3) Valvular heart disease: (4) HINKLE (nonalcoholic steatohepatitis): Plan: Patient is a 71 yr female who presented by referral PCPs office for evaluation of shortness of breath, worsening abdominal distention Volume overload Acute on chronic systolic diastolic heart failure Likely multifactorial due to chronic systolic and diastolic CHF, valvular heart disease, HINKLE Severe Mitral Regurgitation --CT ABD/pelvis showing small bilateral pleural effusions, small amount of ascites, evidence of anasarca --BNP 2529 --Troponin 41>42>48 --ECHO: Left ventricle is moderately dilated. EF 30 to 35%. Right ventricle systolic function is normal. Left atrium is moderately dilated. Moderate valvular aortic stenosis. Moderate to severe mitral annular calcification, severe mitral regurgitation and moderate mitral stenosis. Mild to moderate tricuspid regurgitation. Estimated pulmonary artery pressure 55 mmHg. --Monitor I's and O's, daily weight Appreciate cardiology, nephrology input On Fluid restriction--1200ml/day Wean off of supplemental oxygen as able Not on JUAN JOSE/ARB detailed home blood pressure in the past. Likely would not tolerate Entresto Not a candidate for mitral valve replacement Closely monitor volume status Plan to discharge to SNF as able Resumed lasix 20mg daily Needs follow up with Nephrology upon discharge Hyponatremia likely due to hypervolemia, diuretics Continue Fluid restriction Monitor sodium levels Continue Urea, Salt Tab as per Nephrology Appreciate Nephrology Input Celexa Held Encouraged increased protein intake [employer] Tender consulted Sodium levels 127 today Stable Hyperkalemia Potassium 5.5 today Check EKG Low K diet Given a dose Veltassa Monitor HINKLE Continue rifaximin Spironolactone on hold (5) Leg wound, right: Plan: Right anterior swan wound in the setting of severe PVD No signs of sepsis Venous Doppler shows greater saphenous vein graft that appears patent Continue Wound care Completed Doxycycline Course (6) PAD (peripheral artery disease): (7) CAD (coronary artery disease): (8) Elevated troponin: Plan: Troponin 41>42>48 No reports of chest pain Continue ASA, statin, beta-alma (9) Diarrhea: Plan: Seems to be a chronic issue C. difficile and stool PCR negative (10) COPD (chronic obstructive pulmonary disease): Plan: No signs of acute exacerbation (11) CKD (chronic kidney disease), stage III: Plan: Baseline creatinine mid 1's Creatinine 1.3>1.5>1.4> 1.2 Monitor (12) Diabetes mellitus type 2, diet-controlled: Plan: Hgb A1c 6.6 ISS (13) Bladder cancer: Plan: Had screening cystoscopy on 02/27/22 that showed recurrence of cancer Patient scheduled for TURBT in March (14) DVT prophylaxis: Plan: SQ heparin Plan: Disposition SNF as able Admission and Anticipated Discharge Date Admission Date: February 28, 2022 Subjective Patient is seen and examined at bedside States feeling sleepy and had an episode of nausea, vomiting today No other complaints Hyperkalemia noted on labs Discussed with Nephrology today Denies any chest pain, shortness of breath, dizziness, nausea Review of Systems Review of Systems: All systems reviewed & are unremarkable except as noted in Subjective Physical Exam Physical Exam: Physical Exam: Vitals signs as noted above General Appearance:Moderately built and nourished, no apparent distress Head: normocephalic, Atraumatic Eyes: normal inspection, EOMI Neck: supple, Trachea midline Respiratory/Chest: Decreased breath sounds, CTA, No accessory muscle use Cardiovascular: S1, S2, + murmur Abdomen/GI:Soft, Non tender, Bowel sounds present Extremities/Musculoskeletal:normal inspection, Left BKA, Leg wound Neurologic/Psych:AAOX3, grossly no focal neurological deficits Skin: normal color, warm Results & Data Results & Data ([facility]) Vital Signs (Past 12 Hours) Vital Signs Temp Pulse Pulse Resp BP Pulse Ox 03/26/22 15:57 71 03/26/22 11:50 36.9 C 75 16 109/64 03/26/22 07:20 36.5 C 72 16 107/57 L 90 03/26/22 07:02 71 Laboratory Results BMP 03/26/22 05:59 Sodium 125 L Potassium 5.5 H Chloride 92 L Carbon Dioxide 24 BUN 89 H Creatinine 1.22 H Glucose 103 H Calcium 8.9
[2022-03-26] MEDS: ATORVASTATIN 40 MG TAB PO SCH (20:28)
[2022-03-27] MEDS: PANTOprazole 40 MG TAB PO SCH (06:14)
[2022-03-27] MEDS: HEPARIN SOD 5,000 UNIT/0.5 ML VIAL SQ SCH (06:14)
--- NOTE | 2022-03-27 06:25 | Communication Note ---
Date of Service: March 27, 2022 Interim progress reviewed as follow up to psychiatric consultation. Antidepressant has been held/avoiding due to hyponatremia. Patient has been accepted to a facility in [place]. No additional recs at this time.
[2022-03-27 06:58] LABS: BUN Creatinine Ratio 56.9 (10-20); Calcium 8.8 mg/dl (8.5-10.1); Creatinine Clr Calc Pharmacy 32.4 ml/min; Est GFR (African American) 42.2 ml/min; Est GFR (Non-African American) 36.4 ml/min; Potassium 5.1 mmol/L (3.5-5.1)
[2022-03-27] MEDS: UREA (UREA-NA) 15 GM PACK PO SCH (07:20)
[2022-03-27] MEDS: FUROSEMIDE 20 MG TAB PO SCH (07:20)
[2022-03-27] MEDS: SODIUM CHLORIDE 1 GM TABLET PO SCH (07:20)
[2022-03-27] MEDS: FOLIC ACID 1 MG TAB PO SCH (07:21)
[2022-03-27] MEDS: allopurinoL 300 MG TAB PO SCH (07:21)
[2022-03-27] MEDS: ASPIRIN 81 MG ECTAB PO SCH (07:21)
[2022-03-27] MEDS: rifAXIMin 550 MG TABLET PO SCH (07:21)
[2022-03-27] MEDS: GABAPENTIN 800 MG TAB PO SCH (07:21)
[2022-03-27] MEDS: MENTHOL-ZINC OXIDE 360 APPLN/120 GM TUBE EXT SCH (07:22)
[2022-03-27] MEDS: FERROUS GLUCONATE 324 MG TAB PO SCH (07:22)
[2022-03-27] MEDS ORDERED: PATIROMER CALCIUM SORBITEX 8.4 GM PACK PO PRN (08:22)
--- NOTE | 2022-03-27 08:23 | Nephrology Progress Note ---
Date of Service March 27, 2022 Assessment & Plan (1) Hyponatremia: Plan: fluctuating low serum sodium, likely Multifactorial now and w/ changing cause through hospital course.Had Hypervolemic Hyponatremia in the beginning and now euvolemic but also low solute diet. has had no lasix since 03/07 PM > prior to that had aggressive dosing. admitted 03/01 with sNa 130 and with slow drift down to 124 as recently as 03/09. Sodium dropped to 125 after several days at 127; overall a very tough case b/c of fluctuating cause/volume status. Na goes up with Salt tab and Urea (but want to stop that given very high BUN and HF) But Na drops as soon as we lower the Salt tab and Urea. So restarted urea, salt tabs lower end doses Now with isoosmolar or borderline hyperosmolar hyponatremia and mild hyperkalemia -continue lasix 20 mg po daily -ordered veltassa 8.4 gm x 1 prn K > 5.4 -continue low K diet -03/26 CXR >> shows pulm vascular congestion --Celexa stopped from 03/18 ( i personally dont think it has anything to do with low Na+) -encourage protein intake. Na cannot go up unless she eats more solid food. Fluid restriction 1200; protein shakes do NOT count toward this >>pls Add Protein bars/Gummies to raise the Osmolar load--pls discuss w/ teacher vocal at accepting facility -started low K diet; will check serum osms w/ am labs DISCHARGE RECS -STABLE /asymptomatic chronic hyponatremia > can be d/c w/ renal nurse to order q Mon/Thurs BMP -1.2 fluid limit and low K diet; protein shakes do NOT count toward FR >CXR in one week to be ordered by renal nurse -f/u in 1 week with nephrology at [facility] (Dr Morataya preferred; Dr Gleason [place]; will transition eventually to [facility] nephro clinic but no availability currently) -push protein gummies/shakes/ high protein diet -d/c on current lasix, salt tab, urea, vetassa doses (2) CKD (chronic kidney disease), stage III: Plan: She is know to be non protenuric CKD 3b with baseline Scr 1.4 --1.6 > still b [place] than baseline Diuretics on hold - Avoid nephrotoxins (3) Combined systolic and diastolic congestive heart failure: Plan: >>cardiology ok with diuretics prn fluid mgt/ not necessarily strong/imperative for standing diuretics from cardiac standpoint > low Na+ diet (even w/ salt tabs), 1.2 L fluid restriction -Echo 09/2020-EF 40 to 45%, grade 2 diastolic dysfunction, moderate aortic stenosis, mild aortic regurgitation, mild mitral stenosis, severe mitral regurgitation Repeat TTE show EF of 30-35%, LV is moderately dilated, severe MR, mod MS, LA mod dilated - Cardiology on board, not a candidate for MVR (4) Bladder cancer: Plan: screening cysto 02/27 w/ bladder CA recurrence; for TURBT in March Admission and Anticipated Discharge Date Admission Date: February 28, 2022 Subjective moved bowels this am soft, some form, no blood or pain; no sob; no abdominal pain or n/v on ROS; no voiding concerns Review of Systems Review of Systems: All systems reviewed & are unremarkable except as noted in Subjective Physical Exam Constitutional: well developed, well nourished, + obese and cooperative; no acute distress Eyes: EOM intact bilaterally ENMT: Ears: no external ear abnormality Nose: no external nose abnormality Mouth: + dry oral mucous membranes Neck: no nuchal rigidity Respiratory: normal respiratory effort Auscultation: + diminished lung sounds and + crackles (bibasilar) Cardiovascular: Rate/Rhythm: regular rate and regular rhythm Extremities: no edema Gastrointestinal (Abdomen): Inspection/Auscultation: normal bowel sounds Percussion/Palpation: + abdomen tender (some superficial RLQ TTP w/o rebound/guarding) and abdomen soft; no guarding and abdomen not rigid Musculoskeletal: Extremities: strength 5/5 throughout Skin: no rashes, warm and dry + ecchymosis (extensive) Trauma: + evidence of skin trauma Neurologic: generalized weakness; mcnally, fluent speech, no tremor Psychiatric: Orientation: oriented to person and oriented to place Results & Data ([facility]) Vital Signs (Past 12 Hours) Vital Signs Temp Pulse Pulse Pulse Resp BP BP 03/27/22 07:53 72 20 109/67 03/27/22 04:02 36.6 C 61 18 102/65 03/27/22 00:04 72 03/26/22 22:44 36.5 C 73 18 108/68 Pulse Ox 03/27/22 07:53 03/27/22 04:02 93 03/27/22 00:04 03/26/22 22:44 94 Laboratory Results 03/14/22 17:16 03/27/22 06:15
[2022-03-27] MEDS: INSULIN ASPART PER UNIT SC SCH ×2 (08:25→12:28)
--- NOTE | 2022-03-27 10:26 | Discharge Summary ---
Date of Service March 27, 2022 Admission HPI Per Admitting Provider 71-year-old female PMH Charcot foot, DM type II with peripheral neuropathy, alpha 1 antitrypsin deficiency, COPD, bilateral carotid artery disease, chronic systolic and diastolic CHF with valvular disease, CAD, HTN, HINKLE, bladder cancer s/p tumor resection, vaginal intraepithelial neoplasia 3, PAD, CKD stage III, SARANYA, rheumatoid arthritis, s/p left BKA, depression, tobacco abuse, and other problems listed below who presents the ED for evaluation of shortness of breath. Patient reports over the past few weeks, she has been noting increasing abdominal distention and shortness of breath. She also has noted increasing lower extremity edema and she is unable to wear her left leg prosthesis. Patient denies chest pain. She reports an occasional cough productive for white sputum. States this is chronic for her. Patient reports frequent falls, falling almost daily. Denies striking her head. No associated lightheadedness, dizziness, loss of consciousness. Reports chronic diarrhea that she has had since she was diagnosed with COVID-19. No abdominal pain, nausea, vomiting. Denies fevers and chills. About 10 days ago, patient reports a wound developed on her right anterior swan. There has been some serous and purulent drainage at times. No urinary symptoms. Was seen by urology yesterday for follow-up cystoscopy and was found to have recurrence of her bladder cancer. In the ED, patient is hemodynamically stable, labs are unremarkable/at patient's baseline. CXR shows vascular congestion. CT ABD/pelvis shows a small amount of ascites with anasarca. Patient was given Lasix 40 mg IV. Admission Exam Per Admitting Provider General Appearance:Moderately built and nourished, chronic ill appearing, no apparent distress Head: normocephalic, Atraumatic Eyes: normal inspection, EOMI Neck: supple, Trachea midline Respiratory/Chest: Decreased breath sounds, +Basal Crackles, No accessory muscle use Cardiovascular: S1, S2, + murmur Abdomen/GI:Soft, distended, mild tender, Bowel sounds present Extremities/Musculoskeletal:normal inspection, Left BKA, + multiple bruises, right lower extremity edematous, erythematous, small wound Neurologic/Psych:AAOX3, grossly no focal neurological deficits Skin: normal color, warm Principal Diagnosis Volume overload Systolic and diastolic congestive heart failure Hyponatremia Discharge Exam Constitutional + well hydrated and + obese; no acute distress Eyes PERRL, conjunctivae normal, anicteric sclerae ENMT external ear and nose normal, oropharynx normal Respiratory normal respiratory effort; no respiratory distress Diminished breath sounds Cardiovascular Rate/Rhythm: regular rate and regular rhythm Heart Sounds: + murmur Gastrointestinal (Abdomen) normal bowel sounds, soft, nontender, no hepatosplenomegaly Musculoskeletal Left BKA Stasis skin changes Neurologic PERRL, EOMI, accommodation nl, no face palsy, no dysarthria Psychiatric A+Ox3, euthymic affect Discharge Data Allergies Allergy/AdvReac Type Severity Reaction Status Date / Time Penicillins Allergy Intermediate Hives, Verified 11/19/21 15:03 dyspepsia, diarrhea Iodinated Contrast Media AdvReac Intermediate Severe Verified 02/28/22 16:41 [Iodinated Contrast- Oral vomiting and IV Dye] oxycodone [From Percocet] AdvReac Intermediate Vomiting Verified 02/28/22 16:41 penicillin G AdvReac Intermediate n/v Verified 02/28/22 16:40 Consultations 02/28/22 16:28 ED Decision to Admit Stat 02/28/22 20:35 Consult Cardiology Routine 03/01/22 09:16 Consult Nephrology Routine 03/16/22 13:21 Consult Psychiatry Routine Procedures Performed Operation Date: 03/18/22 10:15 <No data on this case meets the specified criteria> Ordered Studies 02/28/22 12:39 US venous doppler LE RT Stat Currently there is normal compressibility of the deep venous system from the common femoral vein through the proximal calf veins. No current evidence of acute thrombosis is identified. Impression: No evidence of deep venous thrombus. Swelling and edema is present. The patient has a greater saphenous vein graft that appears paten 02/28/22 13:06 CT abd pelvis wo con Stat Cardiomegaly with mitral annular and coronary artery calcifications. Small pleural effusions. Subsegmental dependent bibasilar groundglass densities suggest atelectasis. A mild pneumonitis would be difficult to exclude. No pneumatosis or pneumoperitoneum. Hepatosplenomegaly with cirrhosis. Anasarca with small volume of abdominal pelvic ascites, increased from the prior study. Cholecystectomy. No hepatic mass identified. Moderate pancreatic atrophy. The adrenal glands are within normal limits. Cysts of the kidneys are redemonstrated measuring up to 3.4 cm on the left and 3.8 cm on the right. Punctate nonobstructing calculus of the interpolar right kidney. Punctate nonobstructing calculus of the inferior pole left kidney. No ureteral calculi or hydronephrosis. Unchanged urinary bladder wall thickening and trabeculation. The uterus appears to be surgically absent. Extensive atherosclerosis of the aorta and branch vessels likely with a component of stenosis within the proximal superior mesenteric artery. Partially imaged right femoral arterial stent. No lymphadenopathy. No bowel obstruction. Mild rectal wall thickening. Colonic diverticulosis without acute diverticulitis. The appendix is reportedly surgically absent. Degenerative changes of the spine, pelvis and hips. There is no destructive bone lesion identified. Thoracolumbar sigmoidal scoliosis. IMPRESSION: 1. Nonspecific rectal wall thickening may be secondary to partial distention versus a nonspecific proctitis. Correlate clinically. 2. No bowel obstruction or pneumoperitoneum. 3. Hepatosplenomegaly with cirrhosis, small volume of abdominal pelvic ascites, anasarca with small pleural effusions. 4. Nonobstructing bilateral nephrolithiasis. 5. Colonic diverticulosis. 6. Additional findings as above Hospital Course (1) Volume overload: (2) Combined systolic and diastolic congestive heart failure: (3) Valvular heart disease: (4) HINKLE (nonalcoholic steatohepatitis): 71 yr female who presented by referral PCPs office for evaluation of shortness of breath, worsening abdominal distention Volume overload Acute on chronic systolic diastolic heart failure Likely multifactorial due to chronic systolic and diastolic CHF, valvular heart disease, HINKLE Hyponatremia --CT ABD/pelvis showing small bilateral pleural effusions, small amount of ascites, evidence of anasarca --BNP 2529 --Troponin 41>42>48 --ECHO: Left ventricle is moderately dilated. EF 30 to 35%. Right ventricle systolic function is normal. Left atrium is moderately dilated. Moderate valvular aortic stenosis. Moderate to severe mitral annular calcification, severe mitral regurgitation and moderate mitral stenosis. Mild to moderate tricuspid regurgitation. Estimated pulmonary artery pressure 55 mmHg. Was comanaged with Nephrology and Cardiology Required IV diuresis Patient had prolonged hospital stay due to difficulty managing persistent hyponatremia even after volume optimization Na is 126 today Based on Certified Adaptive Physical Educator recommendations, she was discharged on sodium tabs, urea sodium Nephrology office will arrange CXR in 1 week and twice a week BMP to monitor renal function, Na and potassium. Patient was also discharged on Veltassa prn K >5.4 Advised to eat low potassium, high protein diet Discharge on po lasix 20mg daily, reduced from 40mg home dose. Aldactone discontinued (5) Leg wound, right: Right anterior swan wound in the setting of severe PVD No signs of sepsis Venous Doppler shows greater saphenous vein graft that appears patent Well managed (6) PAD (peripheral artery disease): (7) CAD (coronary artery disease): (8) Elevated troponin: Troponin 41>42>48 No reports of chest pain Continue ASA, statin, beta-alma (9) Diarrhea: Intermittent Seems to be a chronic issue C. difficile and stool PCR negative (10) COPD (chronic obstructive pulmonary disease): No signs of acute exacerbation (11) CKD (chronic kidney disease), stage III: Baseline creatinine mid 1's Creatinine 1.44 today (12) Diabetes mellitus type 2, diet-controlled: Hgb A1c 6.9 10/2021, A1c 03/01/22 6.6 (13) Bladder cancer: History Had screening cystoscopy on 02/27/22 that showed recurrence of cancer Patient scheduled for TURBT in March Total Time Total Time Spent Total Time Spent (In Minutes): 50 Total Time Includes: Examination of the Patient, Discharge Planning, Medication Reconciliation and Communication With Other Providers Discharge Plan Discharge Items Patient Disposition: Transfer [facility] Reason For Visit: VOLUME OVERLOAD Discharge Diagnosis: Volume overload Systolic and diastolic congestive heart failure Hyponatremia Activity: As commented below Activity Comment: Per Physical therapist at SNF Non-emergency contact: Primary Care Provider, Reconditioning Associate and Certified Adaptive Physical Educator Call non-emergency contact if: you have any medication questions and your symptoms worsen Follow-up/Referrals: Harjinder Gleason MD [Surgeon] - (Date & Time 04/12/2022 1:00 PM Provider Harjinder Gleason MD Department Nephrology, [facility] ) Chadd Dudley MD [Primary Care Provider] - Diet: Heart Healthy and Low Potassium (2gm) Fluids: 1200ml (5 cups) Addtl Attending Provider Instructions: Mrs Hinkle You came to the hospital for volume overload. You were evaluated and managed for these and above listed diagnoses. You had low sodium levels requiring comanagement with the Certified Adaptive Physical Educator You are being discharged to group home facility for rehab. You need a follow up with the Certified Adaptive Physical Educator in 1 week. You also need labwork called Basic Metabolic Panel twice weekly (on Friday and ) to be arranged by the Kidney nurse. They will also order a chest Xray in 1 week. Please adhere to fluid restriction, low potassium diet You can take high protein duet as we discussed. Your celexa was discontinued for now due to low sodium levels. Please ensure follow up with your Psychiatrist. Certain medication adjustments were made as listed in your medication list for now. This involves your lasix and some new meds - urea sodium, sodium tabs and veltassa. It is important that you follow up with the Certified Adaptive Physical Educator closely who will make adjustments as needed. Please ensure follow up with your Primary Doctor and Reconditioning Associate as well. It was a pleasure taking care of you. Pending Studies at Discharge: No Stand-Alone Forms: My [facility] Skilled Items Patient informed of condition?: Yes DNR: Yes Discharge Level of Care: Skilled Communicable Disease: No Discharge Prognosis: Stable Lines: None Urinary Catheter: No Medications and DC Order Prescriptions: New furosemide 20 mg Tablet 20 mg PO QAM Qty: 30 RF: 0 Veltassa 8.4 gram Powder In Packet 8.4 g PO DAILY@1100 PRN (Reason: For potassium >5.4) Qty: 30 RF: 0 sodium chloride 1 gram Tablet 1 g PO BID Qty: 60 RF: 0 Ure-Na 15 gram Powder In Packet 15 g PO DAILY Qty: 30 RF: 0 Continued nitroglycerin 0.4 mg tablet, sublingual 0.4 mg sublingual DIRECTED PRN (Reason: Chest Pain) RF: 0 fluticasone propionate 50 mcg/actuation [place],Suspension 1 spray INTRANASAL DAILY RF: 0 atorvastatin 80 mg Tablet 80 mg PO HS Qty: 30 RF: 0 ipratropium-albuterol 0.5 mg-3 mg(2.5 mg base)/3 mL Solution For Nebulization 3 ml INHALATION Q6H PRN (Reason: Shortness Of Breath) Qty: 15 RF: 0 omeprazole 40 mg Capsule,Delayed Release(Dr/Ec) 40 mg PO DAILYBB Qty: 30 RF: 0 aspirin [Aspirin Low Dose] 81 mg Tablet,Delayed Release (Dr/Ec) 81 mg PO QAM Qty: 30 RF: 0 gabapentin 800 mg tablet 800 mg PO TID Qty: 90 RF: 0 vitamin B complex Tablet 1 tab PO QAM Qty: 30 RF: 0 folic acid 1 mg Tablet 1 mg PO QAM Qty: 30 RF: 0 allopurinol 300 mg Tablet 300 mg PO QAM Qty: 30 RF: 0 metoprolol succinate 25 mg Tablet Extended Release 24 Hr 12.5 mg PO DAILY@1530 Qty: 30 RF: 0 Multiple Vitamin-Minerals Tablet 1 tab PO DAILY Qty: 30 RF: 0 albuterol sulfate 90 mcg/actuation HFA aerosol inhaler 2 puff INHALATION QID PRN (Reason: Shortness Of Breath Or Wheezing) Qty: 8.5 RF: 0 melatonin 1 mg Tablet 1 mg PO HS Qty: 30 RF: 0 solifenacin [Vesicare] 5 mg tablet 5 mg PO QAM Qty: 30 RF: 0 Xifaxan 550 mg tablet 550 mg PO AMHS Qty: 60 RF: 0 Changed ferrous gluconate 324 mg (38 mg iron) Tablet 324 mg PO BID Qty: 60 RF: 0 Discontinued furosemide [Lasix] 40 mg Tablet 40 mg PO BID RF: 0 spironolactone [Aldactone] 100 mg Tablet 100 mg PO QAM RF: 0 citalopram 40 mg tablet 40 mg PO HS RF: 0 methocarbamol 500 mg tablet 500 mg PO BID RF: 0 Discharge Orders: Discharge Order (Routine); Ordered 03/27/22 Ordered By: Rosalba Payne/Other Patient Handouts: Managing Type 2 Diabetes Admission Data Admit Date/Time: 02/28/22 16:50 Attending Provider: Rosalba Mackey I. Admit Provider: Alber Chung Primary Care Provider: Chadd Dudley Other Providers: Alber Chung ; Jonathon Walters ; Soraya Morataya ; Harjinder Gleason ; Gretchen Arambula ; Santo Barlow ; Alicia Daniels ; [facility] ; Precious Watkins ; Lucrecia Saha ; Ofelia Hein Other Interventions: Discharge Summary Assessment (RN) Last Done: 03/27/22 10:59
--- NOTE | 2022-03-28 05:36 | Electrocardiogram Report ---
Test Reason : Blood Pressure : / mmHG Vent. Rate : 071 BPM Atrial Rate : 071 BPM P-R Int : 274 ms QRS Dur : 110 ms QT Int : 404 ms P-R-T Axes : 067 257 040 degrees QTc Int : 439 ms Sinus rhythm with 1st degree A-V block with occasional Premature ventricular complexes Low voltage QRS Anterior infarct Inferior infarct Abnormal ECG When compared with ECG of 28-FEB-2022 14:02, Premature ventricular complexes are now Present Confirmed by Graham Falk ([id number]) on 03/28/2022 5:35:43 AM Referred By: REFERRED SELF Confirmed By:Graham Falk
== END 2022-03-27 14:27 | DRG 291 ==
LOC: ED 12:19 → SUATTDRO 16:50 → 2S 16:50 → 2W 03-04 12:01